=== PATIENT | female | born 1950 | race Caucasian/White ===

== ENCOUNTER 2019-03-30 11:38 | Inpatient (IN) | payer MEDICARE, OTHER, SELFPAY ==
[2019-03-30] VITALS (7 sets, daily range): BP systolic 116–166; BP diastolic 57–101; PULSE 60–80; RESP 18–20; TEMP 36.2–36.6; O2SAT 94–98; BMI 33.7
--- NOTE | ~2019-03-30 | XR_ITS ---
EXAMINATION: XR chest 2V DATE: 03/30/2019 13:02 INDICATION: Dizziness. TECHNIQUE: Frontal and lateral views of the chest were obtained. COMPARISON: Chest 2 views 10/16/2018 FINDINGS: There is mild atelectasis in left lower lung zone. Calcified right lung nodules and calcifi ed mediastinal lymph nodes are consistent with old granulomatous disease. No pleural effusion or pneu mothorax. The heart size is normal. IMPRESSION: 1. Mild atelectasis in left lower lung zone. Reviewed, dictated and finalized at location A. TING MACHINE MECHANIC
--- NOTE | ~2019-03-30 | CT_ITS ---
EXAMINATION: CT brain wo con DATE: 03/30/2019 13:03 INDICATION: Dizziness. TECHNIQUE: Computed tomography (CT) of the head was performed without intravenous contrast. The mA wa s adjusted according to patient size. Iterative reconstruction technique was employed. The dose-lengt h product was 605.33 mGy-cm. COMPARISON: Head CT 07/17/2016 FINDINGS: There is no intracranial hemorrhage, acute infarction, or abnormal intracranial mass lesion . The ventricles are normal in size. The orbits are normal. The paranasal sinuses are clear. The mast oid air cells are normal. IMPRESSION: 1. Normal brain. Reviewed, dictated and finalized at location A. ENT MANAGER IMPRESSION: 1. Normal brain.
--- NOTE | 2019-03-30 12:05 | ECG_ITS ---
Measurements Intervals [place] Rate: 72 P: 30 VA: 166 QRS: 2 QRSD: 111 T: -5 QT: 360 QTc: 394 Interpretive Statements SINUS RHYTHM ATRIAL AND VENTRICULAR PREMATURE COMPLEXES INTRAVENTRICULAR CONDUCTION DELAY DELAYED PRECORDIAL R/S TRANSITION VOLTAGE CRITERIA FOR LVH NONSPECIFIC ST & T-WAVE ABNORMALITY- DIFFUSE LEADS ABNORMAL ECG Electronically Signed On 03-30-2019 14:21:20 [employer] by Unruly Panchal D.O.
[2019-03-30 12:09] LABS: Glucose Point of Care 366 (65-105)
--- NOTE | 2019-03-30 12:29 | ED.DIZZY ---
HPI - Dizziness General Chief Complaint: Dizziness Stated Complaint: dizzy,dry mouth,numbness in left hand Time Seen by Provider: 03/30/19 12:05 Source: patient Mode of arrival: ambulatory Limitations: no limitations History of Present Illness HPI Narrative: Karly is a 68-year-old female patient. She presents ambulatory to the emergency room. She states that she has been sick for 1 month or more. Her main complaint at this time is dizziness . This has been going on for about 5 weeks. She recently went to the emergency room in [place]. Before this she had seen Dr. Mills in [place]. However she decided she will go to the emergency room in [place] as [place] was too far . She also has some blurred vision. no double vision. No headache. No abdominal pain. No nausea or vomiting. No diarrhea. No urinary complaints at this time. Karly also states that she has history of hypothyroidism and hypertension. She has been on medication for this. However she quit taking the thyroid medication as well as the blood pressure medications which are losartan and metoprolol. She says that she quit taking these medicines on her own without consulting her doctor. She states that she did not feel good when taking these medications. There is no history of fall. No chest pain. No fever or cough. Nothing makes her symptoms better or worse. MD elicited complaint: dizziness and lightheadedness Pertinent past history: other ( hypertension. Hypothyroidism. Depression. RLS.) Onset (ago): week(s) ( Five weeks) Timing: gradual onset and intermittent Severity: moderate Description: lightheadedness and other ( see HPI narrative) Context: other ( see HPI narrative) History of similar symptoms: No Exacerbating factors: nothing Relieving factors: nothing Associated symptoms: other ( See HPI narrative) Associated neuro symptoms: other ( says she has blurred vision but no diplopia.) Related Data Home Medications Medication Instructions Recorded Confirmed pramipexole 3 mg PO DAILY 03/30/19 03/30/19 Allergies Allergy/AdvReac Type Severity Reaction Status Date / Time banana Allergy Severe SEVERE Verified 03/30/19 13:32 HIVES aspirin AdvReac Intermediate NAUSEA/VOMI Verified 08/14/14 09:08 TING Review of Systems Review of Systems: All systems reviewed & are unremarkable except as noted in HPI and below Constitutional: Constitutional: Reports as per HPI, Denies chills and Denies fever(s) Eyes: Eyes: Reports change in vision ( Blurred vision, no diplopia.) ENT: Reports system reviewed and no additional complaints, except as documented, Denies dysphagia, Denies vertigo, Reports dizziness, Denies epistaxis, Denies nasal congestion and Denies sore throat Cardiovascular: Cardiovascular: Reports as per HPI, Denies chest pain and Denies radiating jaw, neck or arm pain Respiratory: Respiratory: Reports as per HPI, Denies chest congestion, Denies cough, Denies dyspnea and Denies wheezing Gastrointestinal: Gastrointestinal: Reports as per HPI, Denies abdominal pain, Denies diarrhea, Denies nausea and Denies vomiting Genitourinary: Genitourinary: Reports no additional female genitourinary complaints, Denies hematuria and Denies dysuria Musculoskeletal: Musculoskeletal: Denies back pain and Denies muscle cramps Integumentary/Breasts: Skin/Breast: Reports system reviewed and no additional complaints, except as docu, Denies erythema and Denies rash Neurologic: Reports system reviewed and no additional complaints, except as documented, Denies vertigo, Reports dizziness, Denies syncope, Denies headache(s), Denies focal weakness, Denies numbness and Denies weakness Psychiatric: Psychiatric: Reports no additional psychiatric complaints and Reports anxiety Endocrine: Endocrine: Reports no additional endocrine complaints Comments: Has history of hypothyroidism. She quit taking levothyroxine on her own. Hematologic/Lymphatic: Hematologic/Lymphatic:
[2019-03-30 12:46] LABS: Basophils Absolute Auto 0.01 K/mm3 (0.00-0.10); Basophils Percent Auto 0.2 % (0.0-1.0); Eosinophils Absolute Auto 0.06 K/mm3 (0.02-0.50); Hematocrit 42.5 % (35.0-42.0); Immature Granulocyte Absolute 0.02 K/mm3 (0.00-0.00); Immature Granulocyte Percent A 0.3 % (0.0-0.0); Lymphocytes Percent Auto 16.1 % (18.0-42.0); Mean Corpuscular HGB Conc 32.9 g/dL (32.0-36.0); Mean Corpuscular Hemoglobin 30.4 pg (27.0-31.0); Mean Corpuscular Volume 92.4 fL (78.0-102.0); Mean Platelet Volume 11.1 fl (9.2-11.8); Monocytes Absolute Auto 0.49 K/mm3 (0.10-0.90); Monocytes Percent Auto 7.9 % (2.0-11.0); Neutrophils Absolute Auto 4.6 K/mm3 (1.7-7.2); Neutrophils Percent Auto 74.5 % (50.0-70.0); Platelet Count Result 240 K/mm3 (150-420); Red Cell Distribution Width 13.9 % (11.6-14.4); White Blood Count 6.2 K/mm3 (4.8-10.8)
[2019-03-30 12:54] LABS: Appearance Urine Clear (Clear); Bilirubin Urine Negative (Negative); Color Urine Straw (Yellow); Glucose Urine UA 3+ (Negative); Ketones Urine 3+ (Negative); Leukocyte Esterase Ur Negative LEU/UL (Negative); Nitrate Urine Negative (Negative); Protein Urine Negative (Negative); Urobilinogen Urine 0.2 mg/dL (0.2-1.0); pH Urine 5.5 (5.0-8.0)
[2019-03-30 12:57] LABS: Add Urine Microscopic? YES; Bacteria Urine Trace /hpf; Blood Urine Trace-Intact (Negative); RBC Urine None seen /hpf (0-2); Squamous Epithelial Cell Urine Few /hpf (Few); WBC Urine None seen /hpf (0-3)
[2019-03-30 13:00] LABS: Hemoglobin A1C 11.2 % (<5.7)
[2019-03-30 13:01] LABS: INR 0.9; Partial Thromboplastin Time 33.4 SEC (22.3-31.6); Prothrombin Time 9.8 Seconds (9.64-11.0)
[2019-03-30 13:12] LABS: Alanine Aminotransferase 21 U/L (14-59); Albumin Level 4.1 g/dL (3.4-5.0); Alkaline Phosphatase 97 U/L (46-116); Anion Gap 25.2 mmol/L (7-16); Aspartate Amino Transferase 14 U/L (15-37); Bilirubin,Total 0.4 mg/dL (0.00-1.00); Blood Urea Nitrogen 25 mg/dL (7-18); Calcium 10.5 mg/dL (8.5-10.1); Carbon Dioxide 15 mmol/L (21-32); Chloride 100 mmol/L (98-108); Creatine Kinase 116 U/L (26-192); Estimated CRCL calculation 48 ml/min; Estimated Glomerular Filt Rate > 60; Magnesium 2.2 mg/dL (1.8-2.4); Osmolality Calculated 308 mOsm/kg (285-295); Potassium 4.2 mmol/L (3.5-5.1); Sodium 136 mmol/L (136-145); Total Protein 8.1 g/dL (6.4-8.2)
[2019-03-30 13:14] LABS: Glucose 488 mg/dL (70-99); Thyroid Stimulating Hormone 0.86 uIU/mL (0.36-3.74); Troponin I < 0.02 ng/mL (0.00-0.056)
--- NOTE | 2019-03-30 13:23 | PC.NURSE ---
Dr. Ayala in speaking with pt.
[2019-03-30] MEDS: SODIUM CHLORIDE 0.9% IV 1,000 ML 999 ML IV CONT (13:40)
[2019-03-30] MEDS: INSULIN HUMAN REGULAR (*BKC) 100 UNITS/ML 10 UNITS IV PUSH (13:45)
[2019-03-30 13:49] LABS: Erythrocyte Sedimentation Rate 17 mm/hr (0-20)
[2019-03-30 13:49] LABS: Base Excess ABG -11.5 mmol/L (0-2); HCO3 ABG 13.3 mmol/L (23-29); Oxygen Content ABG 18.7 %vol (16.0-22.0); Oxygen Saturation ABG 97.5 % (95-97); Oxyhemoglobin 96.7 % (94-100); PCO2 ABG 27.8 mmHg (35-45); PO2 ABG 99.7 mmHg (75-85); Total Hemoglobin 13.7 g/dL
[2019-03-30 13:50] LABS: Device ROOM AIR; Modified Allen's Test Pass; Site Drawn RIGHT BRACHIAL
[2019-03-30 14:12] LABS: Glucose Point of Care 326 (65-105)
--- NOTE | 2019-03-30 15:02 | PC.NURSE ---
ADmitted for new onset diabetes, here for increase thrist weight loss and blurred vision, oriented to room and hospital process
--- NOTE | 2019-03-30 15:33 | PM.IMHP ---
H&P: HPI History of Present Illness Chief complaint: dizzy,dry mouth,numbness in left hand Narrative: Karly Simms is a 68 year old female That presented to the ED today complaining of dizziness and blurred vision. Patient has a pertinent medical history of hypertension, hypothyroidism. She is being admitted for newly diagnosed diabetes mellitus. Her hemoglobin A1c was 11.2 in her blood sugar was 488. She was given 10 units of insulin in the ED. According to patient she has been filling ill for the last month. She did recently go to her primary care physician complaining of edema to the bilateral eyes and was diagnosed with sinusitis. She was given antibiotics and eyedrops. Patient noted that she became extremely nauseated due to the antibiotics , she believes that the antibiotics were amoxicillin,and called her primary care physician and told him she would not be taking it any longer. She then developed a yeast infection that was treated. She did note that she stopped taking her all her home medication because she felt as if it was making her ill. She decided to come to the ED because her vision worsened and she became more dizzy. She was dizzy to the point where she felt like she was going to fall. She also developed numbness in her left hand that radiated to her fingers. She says she put lidocaine cream on the left hand to relieve the numbness. She also noted that her left hand felt heavy. the hand numbness started 1 week ago. current vital signs are 36.1, 57, 18, 95% on room air, 133/62. patient will be admitted for diabetes mellitus, and metabolic acidosis. Patient denies SOB, CP, palpitation, lightheadness, constipation, diarrhea, or chills or fever. I will restart patient's home medications. Review of Systems Constitutional: Constitutional: Denies chills, Reports fatigue, Denies headache(s), Reports lethargy and Reports weakness Eyes: Eyes: Reports blurry vision, Reports change in vision, Denies diplopia and Denies loss of vision ENT: Denies dysphagia, Denies vertigo and Reports dizziness Cardiovascular: Cardiovascular: Denies chest pain, Denies irregular heart rhythm, Denies lightheadedness, Denies palpitations and Denies dyspnea Respiratory: Respiratory: Reports no additional respiratory complaints, Denies cough and Denies dyspnea PMFSH Past Medical History Medical History (Updated 03/31/19 @ 09:17 by DILIP Mtz) Hypertension Hypothyroid Surgical History Surgical History (Updated 03/30/19 @ 12:41 by Rickey Ayala MD) H/O: hysterectomy Hx of tonsillectomy Family History Family History Grandparent Family history of premature coronary heart disease, Onset Age: 64 Father Family history of respiratory disorder, Onset Age: 87 Cerebrovascular accident Family history of Alzheimer's disease Patient's father is Family history of cardiovascular disease Mother Family history of primary malignant neoplasm of liver, Onset Age: 64 Family history of malignant neoplasm of breast in first degree relative Patient's mother is , Onset Age: 64 Family history of malignant neoplasm Social History Social History Smoking status: Never smoker Alcohol intake: current Drinks per week: 1 Substance use: never Gender identity (if verbalized by the patient): Female Spiritual care concerns: No Agree to blood products: Yes Meds Home Medications and Allergies Home Medications Medication Instructions Recorded Confirmed Type zolpidem 10 mg tablet 10 mg PO .QHS PRN #30 tablet 03/07/19 03/30/19 Rx pramipexole 3 mg PO DAILY 03/30/19 03/30/19 History Allergies Allergy/AdvReac Type Severity Reaction Status Date / Time banana Allergy Severe SEVERE Verified 03/30/19 13:32 HIVES acetaminophen [From Tylenol] AdvReac Intermediate n/v Verified 03/30/19 15:49 aspirin AdvReac Intermediate N
[2019-03-30] MEDS: SODIUM CHLORIDE 0.9% IV 1,000 ML 125 ML IV CONT ×2 (15:48→23:15)
[2019-03-30 16:51] LABS: Glucose Point of Care 271 (65-105)
--- NOTE | 2019-03-30 17:00 | PC.NURSE ---
Sitting up at the bedside, supper tray to patient
--- NOTE | 2019-03-30 18:02 | PC.NURSE ---
fluids infusing, telemetry SR, occassional PVC noted, denies chest pain no sob, states thirst seems to be less at this time
[2019-03-30] MEDS: NAPROXEN 250 MG TABLET 500 MG PO (19:07)
[2019-03-30] MEDS: PRAMIPEXOLE 0.5 MG TABLET PO (20:09)
--- NOTE | 2019-03-30 20:22 | PC.NURSE ---
notified that patient's blood sugar was 328 @ HS. stated to monitor her.
[2019-03-30 20:25] LABS: Glucose Point of Care 328 (65-105)
[2019-03-31] VITALS (8 sets, daily range): BP systolic 114–140; BP diastolic 62–70; PULSE 57–84; RESP 18; TEMP 36.1–36.5; O2SAT 95–98
--- NOTE | 2019-03-31 03:05 | PC.NURSE ---
pt laying in bed playing on tablet, denies any pain or needs at this time, no evidence of distress noted, call light and belongings within reach.
[2019-03-31 05:40] LABS: Basophils Absolute Auto 0.02 K/mm3 (0.00-0.10); Basophils Percent Auto 0.4 % (0.0-1.0); Eosinophils Absolute Auto 0.14 K/mm3 (0.02-0.50); Eosinophils Percent Auto 2.8 % (1.0-6.0); Hematocrit 38.8 % (35.0-42.0); Immature Granulocyte Absolute 0.01 K/mm3 (0.00-0.00); Immature Granulocyte Percent A 0.2 % (0.0-0.0); Lymphocytes Absolute Auto 1.75 K/mm3 (1.10-4.50); Lymphocytes Percent Auto 35.3 % (18.0-42.0); Mean Corpuscular HGB Conc 33.5 g/dL (32.0-36.0); Mean Corpuscular Hemoglobin 30.8 pg (27.0-31.0); Mean Corpuscular Volume 91.9 fL (78.0-102.0); Mean Platelet Volume 11.3 fl (9.2-11.8); Monocytes Percent Auto 10.1 % (2.0-11.0); Neutrophils Absolute Auto 2.5 K/mm3 (1.7-7.2); Neutrophils Percent Auto 51.2 % (50.0-70.0); Platelet Count Result 210 K/mm3 (150-420); Red Blood Count 4.22 M/mm3 (4.20-5.40)
[2019-03-31 05:48] LABS: Alanine Aminotransferase 18 U/L (14-59); Albumin Level 3.5 g/dL (3.4-5.0); Alkaline Phosphatase 78 U/L (46-116); Anion Gap 21.9 mmol/L (7-16); Aspartate Amino Transferase 15 U/L (15-37); Bilirubin,Total 0.5 mg/dL (0.00-1.00); Blood Urea Nitrogen 14 mg/dL (7-18); Calcium 9.3 mg/dL (8.5-10.1); Carbon Dioxide 13 mmol/L (21-32); Chloride 104 mmol/L (98-108); Estimated CRCL calculation 61 ml/min; Estimated Glomerular Filt Rate > 60; Glucose 320 mg/dL (70-99); Osmolality Calculated 292 mOsm/kg (285-295); Potassium 3.9 mmol/L (3.5-5.1); Sodium 135 mmol/L (136-145); Total Protein 6.6 g/dL (6.4-8.2)
[2019-03-31 06:18] LABS: Thyroid Stimulating Hormone Reflex 6.56 u/IU/mL (0.36-3.74)
[2019-03-31 06:40] LABS: Free T4 Free Thyroxine Reflex 0.81 ng/dL (0.76-1.46)
[2019-03-31] MEDS: glipiZIDE XL 2.5 MG TAB.ER.24 PO (07:51)
[2019-03-31] MEDS: hydroCHLOROthiazide 12.5 MG CAPSULE PO (09:18)
[2019-03-31] MEDS: LOSARTAN POTASSIUM 50 MG TABLET 100 MG PO (09:18)
[2019-03-31] MEDS: LEVOTHYROXINE SODIUM 100 MCG TABLET PO (09:18)
[2019-03-31 09:20] LABS: CRP 0.6 mg/dL (0.0-0.9); HDL Direct 43 mg/dL (40-60)
--- NOTE | 2019-03-31 09:35 | PM.IMPN ---
Progress Note: A&P Assessment and Plan (1) Type 2 diabetes mellitus: Qualifiers: Diabetes mellitus complication status: without complication Diabetes mellitus detention insulin use: without terminologist use Qualified Code(s): E11.9 - Type 2 diabetes mellitus without complications Code(s): E11.9 - Type 2 diabetes mellitus without complications Status: Acute Assessment and Plan: blood sugar remained in the 300s - continue glipizide 2.5 extended release for now - patient hesitant about using insulin - change sliding scale to moderate with Accu-Cheks - patient will be educated on the proper use of Accu-Cheks - continue diabetic diet (2) Hypertension: Code(s): I10 - Essential (primary) hypertension Status: Acute Assessment and Plan: vital signs stable - blood pressure elevated in ED - continue losartan 100 mg daily and HCTZ 12. - monitor vital signs as ordered - will adjust medication as needed (3) Hypothyroid: Code(s): E03.9 - Hypothyroidism, unspecified Status: Acute Assessment and Plan: - TSH elevated - restart home dose of levothyroxine. - informed patient that she would have to get a repeat TSH in 6 weeks by her PCP (4) Metabolic acidosis: Code(s): E87.2 - Acidosis Status: Acute Assessment and Plan: -Possibly secondary to insulin resistant diabetes - metabolic acidosis as evidence by pH at 7.30 bicarb is 13.3 anion gap at 25.2 BUN slightly elevated. -urine with ketones - no obvious cardiac abnormalities - C-peptide pending -crp pending (5) DVT prophylaxis: Code(s): Z29.9 - Encounter for prophylactic measures, unspecified Status: Acute Assessment and Plan: continue Lovenox Subjective Date/time seen: 03/31/19 09:35 patient notes that she feels much better today , she noted that she feels like her old self again. She did have a restless night due to the environment. Has not experienced any numbness in the left hand. Patient able to tolerate all meals , and ambulate at baseline. Patient denies SOB, CP, palpitation, extremity numbness, lightheadness, dizziness, constipation, diarrhea, or chills or fever. Review of Systems Constitutional: Constitutional: Denies chills, Reports fatigue, Denies headache(s), Reports lethargy and Reports weakness Eyes: Eyes: Reports blurry vision, Reports change in vision, Denies diplopia and Denies loss of vision ENT: Denies dysphagia, Denies vertigo, Reports dizziness and Denies headache(s) Cardiovascular: Cardiovascular: Denies chest pain, Denies irregular heart rhythm, Denies lightheadedness, Denies palpitations and Denies dyspnea Respiratory: Respiratory: Reports no additional respiratory complaints, Denies cough and Denies dyspnea Gastrointestinal: Gastrointestinal: Denies dysphagia Neurologic: Denies vertigo, Reports dizziness, Denies headache(s), Denies loss of vision and Reports weakness Endocrine: Endocrine: Denies palpitations Exam Const: General: cooperative and tired appearing Orientation/consciousness: patient oriented x3 Eyes: General: appearance normal, both eyes and all related structures Cardio: Jugular venous distension: no JVD Rate: regular rate Neuro: General: patient oriented x3 Cognition (Neuro): normal cognition Speech: normal speech Gait exam (Neuro): Normal gait present Extrem: General: normal to inspection, full ROM, capillary refill normal and no pedal edema Right upper extremity: full ROM Left upper extremity: full ROM Right lower extremity: normal to inspection and full ROM Objective Data Vital Signs Vital Signs: Vital Signs - 24 hr 03/30/19 11:45 03/30/19 13:24 03/30/19 14:43 Temperature 36.6 C Pulse Rate 72 80 62 Respiratory Rate 20 18 20 Blood Pressure 166/101 H 120/57 L 116/67 Pulse Oximetry 97 97 97 03/30/19 14:55 03/30/19 19:05 03/30/19 20:10 Temperature 36.2 C L 36.3 C L Pulse Rate 60 75 61 Respira
--- NOTE | 2019-03-31 11:36 | PC.NURSE ---
up independent in room, denies needs, states feeling better today
--- NOTE | 2019-03-31 11:48 | PC.NURSE ---
Tearful, advised that we are working on getting the right dose and right medication for her, we will try to make sure that she will not have to take insulin and we just have to keep trying the medication and adjust as her body responds to it
[2019-03-31] MEDS: glipiZIDE 2.5 MG TABLET PO (13:09)
[2019-03-31] MEDS: NAPROXEN 250 MG TABLET 500 MG PO (13:15)
--- NOTE | 2019-03-31 13:17 | PC.NURSE ---
naproxyn given for pain and restless leg, telemetry SR 70's, repeat glipizide given and additional metformin given as directed, next POC glucose 1630
--- NOTE | 2019-03-31 13:50 | PC.NURSE ---
Resting in bed, telemetry SR, resting quietly in bed
--- NOTE | 2019-03-31 14:05 | PC.NURSE ---
Up in [place] walking, gait steady, telemertry SR 70's
[2019-03-31] MEDS: LORAZEPAM 0.5 MG TABLET PO (16:55)
--- NOTE | 2019-03-31 18:15 | PC.NURSE ---
states having trouble with restless legs, med for this is scheduled at bedtime, advised if felt she needed the med early to let us know, ativan was given with not much relief, able to ambulate in room, telemetry SR, ate well, advised next finger stick would be at bedtime
[2019-03-31] MEDS: PRAMIPEXOLE 0.25 MG TABLET 0.5 MG PO (20:01)
--- NOTE | 2019-03-31 20:29 | PM.EVENT ---
Event Note Event Note Event Note: Patient states she feels much better today. Blood sugars showing modest response to hypoglycemics and insulin. Mucous membranes moist, regular rate rhythm without murmur, lungs clear to auscultation abdomen soft. No edema. Extremities are warm dry and pink. Metabolic acidosis persists as does the anion gap. Will continue to push hydration and try to assess pancreatic function. I have examined the patient reviewed the chart. I discussed the patient's care with Rad Frances APN and agree with her assessment and plan.
[2019-03-31 20:34] LABS: Glucose Point of Care > 450 (65-105)
[2019-03-31 20:34] LABS: Glucose Point of Care > 450 (65-105)
--- NOTE | 2019-03-31 20:41 | PC.NURSE ---
notified of patient's blood sugar result 479 and 457 when repeated. New orders received.
[2019-03-31] MEDS: SODIUM CHLORIDE 0.9% IV 500 ML IV CONT (20:56)
[2019-03-31] MEDS: SODIUM CHLORIDE 0.9% IV 1,000 ML 100 ML IV CONT (21:34)
--- NOTE | 2019-03-31 23:02 | PC.NURSE ---
Call placed to Dr Mcmahan regarding pt's blood glucose reading, orders given to repeat in 2 hours and call with results.
[2019-03-31 23:11] LABS: Glucose Point of Care 356 (65-105)
[2019-04-01 01:05] LABS: Glucose Point of Care 427 (65-105)
--- NOTE | 2019-04-01 01:17 | PC.NURSE ---
Dr Mcmahan notified of patient's blood glucose level, orders given to give 6 units insulin now and recheck blood sugar in 2 hours, call him with results.
--- NOTE | 2019-04-01 01:30 | PC.NURSE ---
Call placed to Dr Mcmahan regarding pt request for more medication for her restless legs, stated he will put in an order.
--- NOTE | 2019-04-01 01:35 | PC.NURSE ---
Dr Mcmahan at bedside speaking to patient regarding medication for restless leg, he will put in additional medication order.
[2019-04-01] MEDS: PRAMIPEXOLE 0.5 MG TABLET PO (02:07)
--- NOTE | 2019-04-01 03:12 | PC.NURSE ---
Dr Mcmahan notified of pt's blood glucose level, no new orders at this time.
[2019-04-01 03:13] LABS: Glucose Point of Care 303 (65-105)
[2019-04-01 03:14] VITALS: BP 147/83; PULSE 71; RESP 18; TEMP 36.2; O2SAT 98
[2019-04-01] MEDS: LEVOTHYROXINE SODIUM 112 MCG TABLET PO (05:32)
[2019-04-01 06:07] LABS: Hematocrit 32.6 % (35.0-42.0); Mean Corpuscular HGB Conc 33.7 g/dL (32.0-36.0); Mean Corpuscular Hemoglobin 30.4 pg (27.0-31.0); Mean Corpuscular Volume 90.1 fL (78.0-102.0); Mean Platelet Volume 10.8 fl (9.2-11.8); Platelet Count Result 168 K/mm3 (150-420); Red Blood Count 3.62 M/mm3 (4.20-5.40); Red Cell Distribution Width 13.8 % (11.6-14.4); White Blood Count 4.3 K/mm3 (4.8-10.8)
[2019-04-01 06:39] LABS: Anion Gap 14.2 mmol/L (7-16); Blood Urea Nitrogen 14 mg/dL (7-18); Calcium 9.1 mg/dL (8.5-10.1); Carbon Dioxide 20 mmol/L (21-32); Chloride 108 mmol/L (98-108); Estimated CRCL calculation 74 ml/min; Estimated Glomerular Filt Rate > 60; Glucose 277 mg/dL (70-99); Osmolality Calculated 298 mOsm/kg (285-295); Potassium 3.2 mmol/L (3.5-5.1); Sodium 139 mmol/L (136-145)
[2019-04-01 06:41] LABS: Ethanol < 3 mg/dL (0-6)
[2019-04-01 06:45] LABS: Lactic Acid Reflex 0.8 mmol/L (0.4-2.0)
[2019-04-01 06:48] LABS: Salicylate 1.2 mg/dL (2.8-20.0)
[2019-04-01] MEDS: SODIUM CHLORIDE 0.9% IV 1,000 ML 100 ML IV CONT ×2 (07:53→18:12)
[2019-04-01 08:00] VITALS: BP 110/63; PULSE 76; RESP 20; TEMP 36.3; O2SAT 97
[2019-04-01 08:02] LABS: Glucose Point of Care 289 (65-105)
[2019-04-01] MEDS: glipiZIDE XL 5 MG TABCR PO ×2 (08:15→09:15)
[2019-04-01] MEDS: metFORMIN HCL XR 500 MG TAB.SR.24H PO ×2 (08:16→17:02)
[2019-04-01] MEDS: ENOXAPARIN 40 MG/0.4 ML SYRINGE SUB-Q (09:15)
[2019-04-01] MEDS: POTASSIUM CHLORIDE 20 MEQ PACKET (FOR LIQUID) 40 MEQ PO (09:15)
[2019-04-01] MEDS: LOSARTAN POTASSIUM 50 MG TABLET 100 MG PO (09:49)
--- NOTE | 2019-04-01 10:52 | PM.IMPN ---
Progress Note: A&P Assessment and Plan (1) Type 2 diabetes mellitus: Qualifiers: Diabetes mellitus complication status: without complication Diabetes mellitus fci insulin use: without adjunct faculty for medical terminology use Qualified Code(s): E11.9 - Type 2 diabetes mellitus without complications Code(s): E11.9 - Type 2 diabetes mellitus without complications Status: Acute Assessment and Plan: blood sugar >400 last night 10 units given and fluid to inthe 200's - increase glipizide to 10, and ended his metformin 100 mg daily - patient hesitant about using insulin - change sliding scale to moderate with Accu-Cheks - patient will be educated on the proper use of Accu-Cheks - continue diabetic diet - patient educated on diabetic diet (2) Hypertension: Code(s): I10 - Essential (primary) hypertension Status: Acute Assessment and Plan: vital signs stable - patient home medication updated, the medication changed losartan 50 mg daily metoprolol. - monitor vital signs as ordered - will adjust medication as needed (3) Hypothyroid: Code(s): E03.9 - Hypothyroidism, unspecified Status: Acute Assessment and Plan: - TSH elevated - restart home dose of levothyroxine. - informed patient that she would have to get a repeat TSH in 6 weeks by her PCP (4) Metabolic acidosis: Code(s): E87.2 - Acidosis Status: Acute Assessment and Plan: -Possibly secondary to insulin resistant diabetes - metabolic acidosis as evidence by pH at 7.30 bicarb is 13.3 anion gap at 25.2 BUN slightly elevated on admission -urine with ketones - no obvious cardiac abnormalities - C-peptide pending -crp within normal limits -Salicylates and etoh wnl and within normal limits today, bicarbonate 20 - chest x-ray and head CT negative (5) DVT prophylaxis: Code(s): Z29.9 - Encounter for prophylactic measures, unspecified Status: Acute Assessment and Plan: continue Lovenox Subjective Date/time seen: 04/01/19 10:52Patient's blood sugar did increase yesterday greater than 400. Dr. Mcmahan ordered 10 units insulin And IV fluids, blood sugar is currently 277. Patient's glipizide increased to 10 mg and metformin increased to 1000 mg daily to better control her diabetes. Patient admits that she feels a lot better today but remains anxious and teary eye due to her newly diagnosed diabetes. she also informed me that her medication for her restless leg syndrome was incorrect. She noted that she gets 3 tablets per day I informed her that we would need to know the mg. At that time patient pulled out medication list from her purse. her home medication is now updated. Review of Systems Constitutional: Constitutional: Denies chills, Denies headache(s), Reports lethargy and Reports weakness Eyes: Eyes: Reports blurry vision, Reports change in vision, Denies diplopia and Denies loss of vision ENT: Denies dysphagia, Denies vertigo, Reports dizziness and Denies headache(s) Cardiovascular: Cardiovascular: Denies chest pain, Denies irregular heart rhythm, Denies lightheadedness, Denies palpitations and Denies dyspnea Respiratory: Respiratory: Reports no additional respiratory complaints, Denies cough and Denies dyspnea Gastrointestinal: Gastrointestinal: Denies dysphagia Neurologic: Denies vertigo, Reports dizziness, Denies headache(s), Denies loss of vision and Reports weakness Endocrine: Endocrine: Denies palpitations Exam Const: General: cooperative and tired appearing Orientation/consciousness: patient oriented x3 Eyes: General: appearance normal, both eyes and all related structures Cardio: Jugular venous distension: no JVD Rate: regular rate Neuro: General: patient oriented x3 Cognition (Neuro): normal cognition Speech: normal speech Gait exam (Neuro): Normal gait present Extrem: General: normal to inspection, full ROM, capillary refill normal and no peda
--- NOTE | 2019-04-01 11:03 | PM.IMPN ---
Progress Note: A&P Assessment and Plan (1) Type 2 diabetes mellitus: Qualifiers: Diabetes mellitus complication status: without complication Diabetes mellitus fpc insulin use: without director long term care use Qualified Code(s): E11.9 - Type 2 diabetes mellitus without complications Code(s): E11.9 - Type 2 diabetes mellitus without complications Status: Acute Assessment and Plan: blood sugar >400 last night 10 units given and fluid to inthe 200's - increase glipizide to 20, metformin 1000 daily - patient hesitant about using insulin - change sliding scale to moderate with Accu-Cheks - patient will be educated on the proper use of Accu-Cheks - continue diabetic diet - patient educated on diabetic diet (2) Hypertension: Code(s): I10 - Essential (primary) hypertension Status: Acute Assessment and Plan: vital signs stable - patient home medication updated, the medication changed losartan 50 mg daily metoprolol. - monitor vital signs as ordered - will adjust medication as needed (3) Hypothyroid: Code(s): E03.9 - Hypothyroidism, unspecified Status: Acute Assessment and Plan: - TSH elevated - restart home dose of levothyroxine. - informed patient that she would have to get a repeat TSH in 6 weeks by her PCP (4) Metabolic acidosis: Code(s): E87.2 - Acidosis Status: Acute Assessment and Plan: -Possibly secondary to insulin resistant diabetes - metabolic acidosis as evidence by pH at 7.30 bicarb is 13.3 anion gap at 25.2 BUN slightly elevated on admission -urine with ketones - no obvious cardiac abnormalities - C-peptide pending -crp within normal limits -Salicylates and etoh wnl and within normal limits today, bicarbonate 20 - chest x-ray and head CT negative (5) DVT prophylaxis: Code(s): Z29.9 - Encounter for prophylactic measures, unspecified Status: Acute Assessment and Plan: continue Lovenox Subjective Date/time seen: 04/01/19 11:03Patient's blood sugar remained to be in the 300s today .will adjust medication as needed refer to plan. Patient remains emotional due to diagnosed diabetes mellitus. She had no problems overnight. Patient able to tolerate all meals , slept well and ambulate at baseline. Patient denies SOB, CP, palpitation, extremity numbness, lightheadness, dizziness, constipation, diarrhea, or chills or fever. Patient agree that they are ready for discharge and discharge plan. Will attempt to control blood sugars better. Review of Systems Constitutional: Constitutional: Denies chills, Denies headache(s), Reports lethargy and Reports weakness Eyes: Eyes: Reports blurry vision, Reports change in vision, Denies diplopia and Denies loss of vision ENT: Denies dysphagia, Denies vertigo, Reports dizziness and Denies headache(s) Cardiovascular: Cardiovascular: Denies chest pain, Denies irregular heart rhythm, Denies lightheadedness, Denies palpitations and Denies dyspnea Respiratory: Respiratory: Reports no additional respiratory complaints, Denies cough and Denies dyspnea Gastrointestinal: Gastrointestinal: Denies dysphagia Neurologic: Denies vertigo, Reports dizziness, Denies headache(s), Denies loss of vision and Reports weakness Endocrine: Endocrine: Denies palpitations Exam Const: General: cooperative and tired appearing Orientation/consciousness: patient oriented x3 Eyes: General: appearance normal, both eyes and all related structures Cardio: Jugular venous distension: no JVD Rate: regular rate Neuro: General: patient oriented x3 Cognition (Neuro): normal cognition Speech: normal speech Gait exam (Neuro): Normal gait present Extrem: General: normal to inspection, full ROM, capillary refill normal and no pedal edema Right upper extremity: full ROM Left upper extremity: full ROM Right lower extremity: normal to inspection and full ROM Objective Data Vital Signs Vital Sign
[2019-04-01 12:00] VITALS: BP 103/47; PULSE 70; PULSE 80; RESP 20; TEMP 36.7; O2SAT 97
[2019-04-01 12:00] LABS: Glucose Point of Care 383 (65-105)
[2019-04-01 16:00] VITALS: BP 147/65; PULSE 70; PULSE 74; RESP 20; TEMP 36.7; O2SAT 95
[2019-04-01 16:57] LABS: Glucose Point of Care 379 (65-105)
[2019-04-01 20:00] VITALS: BP 118/73; PULSE 80; PULSE 84; RESP 18; TEMP 36.4; O2SAT 99
[2019-04-01 20:50] LABS: Glucose Point of Care 338 (65-105)
[2019-04-01] MEDS: PRAMIPEXOLE 0.25 MG TABLET 0.75 MG PO (21:15)
[2019-04-02] VITALS: BP 126/70; PULSE 84; RESP 18; TEMP 36; O2SAT 98
[2019-04-02 04:00] VITALS: BP 154/79; PULSE 68; RESP 18; TEMP 36.4; O2SAT 98
[2019-04-02] MEDS: SODIUM CHLORIDE 0.9% IV 1,000 ML 100 ML IV CONT (04:15)
[2019-04-02 05:32] LABS: Hematocrit 33.7 % (35.0-42.0); Hemoglobin 11.1 g/dL (11.7-13.8); Mean Corpuscular HGB Conc 32.9 g/dL (32.0-36.0); Mean Corpuscular Hemoglobin 30.2 pg (27.0-31.0); Mean Corpuscular Volume 91.8 fL (78.0-102.0); Mean Platelet Volume 11.2 fl (9.2-11.8); Platelet Count Result 168 K/mm3 (150-420); Red Blood Count 3.67 M/mm3 (4.20-5.40); Red Cell Distribution Width 14.2 % (11.6-14.4); White Blood Count 4.3 K/mm3 (4.8-10.8)
[2019-04-02 05:44] LABS: Anion Gap 17.7 mmol/L (7-16); Blood Urea Nitrogen 9 mg/dL (7-18); Calcium 9.2 mg/dL (8.5-10.1); Carbon Dioxide 20 mmol/L (21-32); Chloride 107 mmol/L (98-108); Estimated CRCL calculation 76 ml/min; Estimated Glomerular Filt Rate > 60; Glucose 302 mg/dL (70-99); Osmolality Calculated 301 mOsm/kg (285-295); Potassium 3.7 mmol/L (3.5-5.1); Sodium 141 mmol/L (136-145)
[2019-04-02] MEDS: LEVOTHYROXINE SODIUM 25 MCG TABLET PO (05:45)
--- NOTE | 2019-04-02 05:48 | PC.NURSE ---
Patient took AM med without difficulty. No distress noted. Call light in reach.
--- NOTE | 2019-04-02 06:05 | PC.NURSE ---
Patient sitting on side of bed and was very happy when her blood sugar was 302. No distress noted. IV NS infusing without difficulty. Call light in reach.
[2019-04-02 08:00] VITALS: BP 128/72; PULSE 61; RESP 18; TEMP 36.6; O2SAT 96
[2019-04-02] MEDS: metFORMIN HCL XR 500 MG TAB.SR.24H PO (08:56)
[2019-04-02] MEDS: glipiZIDE XL 5 MG TABCR 10 MG PO ×2 (08:56→09:02)
[2019-04-02] MEDS: POTASSIUM CHLORIDE 20 MEQ PACKET (FOR LIQUID) 40 MEQ PO (08:56)
[2019-04-02] MEDS: LOSARTAN POTASSIUM 50 MG TABLET PO (08:56)
[2019-04-02] MEDS: ATORVASTATIN 10 MG TABLET 20 MG PO (08:57)
[2019-04-02 09:01] VITALS: PULSE 61
[2019-04-02] MEDS: METOPROLOL SUCCINATE EXT REL 50 MG TABCR PO (09:01)
--- NOTE | 2019-04-02 11:04 | PC.NURSE ---
Telemetry discontinued
--- NOTE | 2019-04-02 12:47 | PM.DS ---
DS: Diagnosis Admitting Diagnosis Admitting Diagnosis: Type 2 diabetes mellitus without complications Discharge Diagnosis (1) Type 2 diabetes mellitus: Qualifiers: Diabetes mellitus complication status: without complication Diabetes mellitus detention insulin use: without terminal press operator use Qualified Code(s): E11.9 - Type 2 diabetes mellitus without complications Code(s): E11.9 - Type 2 diabetes mellitus without complications Status: Acute Assessment and Plan: - Patient will discharge in follow-up her primary care physician further medication adjustment - increase glipizide to 20, metformin 1000 daily - patient hesitant about using insulin - patient educated on diabetic diet (2) Hypertension: Code(s): I10 - Essential (primary) hypertension Status: Acute Assessment and Plan: vital signs stable continue home medication follow-up with PCP (3) Hypothyroid: Code(s): E03.9 - Hypothyroidism, unspecified Status: Acute Assessment and Plan: - TSH elevated continue home medication - informed patient that she would have to get a repeat TSH in 6 weeks by her PCP (4) Metabolic acidosis: Code(s): E87.2 - Acidosis Status: Acute Assessment and Plan: -Possibly secondary to insulin resistant diabetes - metabolic acidosis as evidence by pH at 7.30 bicarb is 13.3 anion gap at 25.2 BUN slightly elevated on admission -urine with ketones - no obvious cardiac abnormalities - C-peptide pending -crp within normal limits -Salicylates and etoh wnl and within normal limits today, bicarbonate 20 - chest x-ray and head CT negative DS: Summary Hospital Course Hospital Course: refer to H&P: Narrative: Karly Simms is a 68 year old female That presented to the ED today complaining of dizziness and blurred vision. Patient has a pertinent medical history of hypertension, hypothyroidism. She is being admitted for newly diagnosed diabetes mellitus. Her hemoglobin A1c was 11.2 in her blood sugar was 488. She was given 10 units of insulin in the ED. According to patient she has been filling ill for the last month. She did recently go to her primary care physician complaining of edema to the bilateral eyes and was diagnosed with sinusitis. She was given antibiotics and eyedrops. Patient noted that she became extremely nauseated due to the antibiotics , she believes that the antibiotics were amoxicillin,and called her primary care physician and told him she would not be taking it any longer. She then developed a yeast infection that was treated. She did note that she stopped taking her all her home medication because she felt as if it was making her ill. She decided to come to the ED because her vision worsened and she became more dizzy. She was dizzy to the point where she felt like she was going to fall. She also developed numbness in her left hand that radiated to her fingers. She says she put lidocaine cream on the left hand to relieve the numbness. She also noted that her left hand felt heavy. the hand numbness started 1 week ago. current vital signs are 36.1, 57, 18, 95% on room air, 133/62. patient will be admitted for diabetes mellitus, and metabolic acidosis. Patient denies SOB, CP, palpitation, lightheadness, constipation, diarrhea, or chills or fever. I will restart patient's home medications. patient blood sugar are in the 200s and 300s this discharge. She would discharge with a max amount glipizide 20 mg daily and metformin a 1000 mg daily. Appointment with her physician has been Made and she with follow-up with her for medication adjustment. Patient able to tolerate all meals , slept well and ambulate at baseline. Patient denies SOB, CP, palpitation, extremity numbness, lightheadness, dizziness, constipation, diarrhea, or chills or fever. Patient agree that they are ready for discharge and discharge plan. Patient educated on diabetic diet,
--- NOTE | 2019-04-02 13:24 | PC.NURSE ---
Patient dressing for discharge
[2019-04-03 08:51] LABS: Glucose Point of Care 398 (65-105)
[2019-04-03 08:51] LABS: Glucose Point of Care 266 (65-105)
[2019-04-03 08:51] LABS: Glucose Point of Care 390 (65-105)
[2019-04-03 08:52] LABS: Glucose Point of Care 381 (65-105)
[2019-04-03 08:52] LABS: Glucose Point of Care 323 (65-105)
[2019-04-04 05:59] LABS: C-Peptide 0.62 ng/mL (0.80-3.85)
--- NOTE | 2019-04-08 13:38 | PC.NURSE ---
Discharge call back completed by database report writer. Pt states she has no issues and that she saw her PCP today and is reviewing material on diet and how to keep a healthy blood sugar.
== END 2019-04-02 14:01 | disposition home or self-care (01) | DRG 638 ==
LOC: CHSED 11:44 → CHS2ND 14:16
PROVIDERS: Nurse Practitioner; Admitting Provider Surgery; Emergency Provider Surgery; PCP Nurse Practitioner Family; Visit Provider Surgery
DX: E11.9 Type 2 diabetes mellitus without complications (principal); E03.9 Hypothyroidism, unspecified; I10 Essential (primary) hypertension; F32.9 Major depressive disorder, single episode, unspecified; G25.81 Restless legs syndrome; E87.2 Acidosis
CPT/HCPCS: 36415; 36600; 70450; 71046; 80048; 80053; 80307; 81001; 82550; 82553; 82805; 83036; 83605; 83718; 83735; 84439; 84443; 84484; 84681; 85025; 85027; 85610; 85652; 85730; 86140; 87040; 93005; 96361; 96374; 99285; A9270; J1650; J1815; J7030; J7040

== ENCOUNTER 2019-05-05 12:00 | Inpatient (IN) | payer MEDICARE, OTHER, SELFPAY ==
[2019-05-05] VITALS (12 sets, daily range): BP systolic 82–124; BP diastolic 38–73; PULSE 18–91; RESP 10–30; TEMP 36.4–36.7; O2SAT 96–100; BMI 31.5
--- NOTE | ~2019-05-05 | CT_ITS ---
EXAMINATION: CT BRAIN W/O DATE: 05/05/2019 12:40 INDICATION: Weakness. TECHNIQUE: Computed tomography (CT) of the head was performed without intravenous contrast. The dose- length product was 529.67 mGy-cm. The mA was adjusted according to patient size. Iterative reconstruc tion technique was employed. COMPARISON: CT dated 03/30/2019 FINDINGS: Normal brain parenchymal volume for age. Normal martinez-white differentiation. No acute intrac ranial hemorrhage, infarction, mass or mass effect. No ventriculomegaly or midline shift. Midline sagittal images demonstrate a normal corpus callosum, c raniovertebral junction and sella turcica. Basilar cisterns are patent. Paranasal sinuses and mastoids are pneumatized. No depressed skull fractures. IMPRESSION: 1. No acute intracranial abnormality. Reviewed, dictated and finalized at location A.
--- NOTE | 2019-05-05 12:03 | ED.RECABL ---
HPI - Recheck/Abnormal Lab/Rx General Chief Complaint: Recheck/Abnormal Lab/Rx Stated Complaint: high blood sugar Time Seen by Provider: 05/05/19 12:02 Source: patient Mode of arrival: ambulatory Limitations: no limitations History of Present Illness HPI narrative: A 68 y/o female presents to the ED with c/o high blood sugar. Pt states that she was recently diagnosed with diabetes in December 2018. Her blood sugar has been in the 500's the last few days. She is currently taking Semaglutide, Metformin, and Lipitor and has been compliant. Pt reports vomiting, weakness, and mid-back pain, but denies ABD pain, fever, numbness, vision changes, and dysuria. She has been having frequent falls due to the weakness. Pt was recently hospitalized 1 month ago at [facility]. complaint: abnormal lab (High blood sugar) Initial visit (ago): day(s) (Few) Context: other (New diagnosis of diabetes) Associated symptoms: other (Vomiting, weakness, mid-back pain) Treatments prior to arrival: other medications (Semaglutide, Metformin, Lipitor) Related Data Allergies Allergy/AdvReac Type Severity Reaction Status Date / Time banana Allergy Severe SEVERE Verified 03/30/19 13:32 HIVES acetaminophen [From Tylenol] AdvReac Intermediate n/v Verified 03/30/19 15:49 aspirin AdvReac Intermediate NAUSEA/VOMI Verified 08/14/14 09:08 TING Review of Systems Review of Systems: Narrative: CONSTITUTIONAL: Denies fever, chills, or sweats. EYES: Denies visual changes ENT: Denies rhinorrhea, congestion CARDIOVASCULAR: Denies chest pain RESPIRATORY: Denies cough or dyspnea. GASTROINTESTINAL: Reports vomiting. GENITOURINARY: Denies dysuria or hematuria. SKIN: Denies rash or itching. MUSCULOSKELETAL: Reports middle back pain, began with emesis NEUROLOGIC: Denies headache or numbness, Reports feeling weak, has been ambulatory All systems reviewed & are unremarkable except as noted in HPI and below PMFSH Past Medical History Medical History Anemia Fibromyalgia Hyperlipidemia Hypertension Hypothyroid Ovarian cancer Shingles Type 2 diabetes mellitus Surgical History Surgical History (Updated 05/05/19 @ 12:07 by Shantal Pizano) H/O: hysterectomy At age 33 History of tubal ligation Hx of tonsillectomy Family History Family History Grandparent Family history of premature coronary heart disease, Onset Age: 64 Father Family history of respiratory disorder, Onset Age: 87 Cerebrovascular accident Family history of Alzheimer's disease Patient's father is Family history of cardiovascular disease Mother Family history of primary malignant neoplasm of liver, Onset Age: 64 Family history of malignant neoplasm of breast in first degree relative Patient's mother is , Onset Age: 64 Family history of malignant neoplasm Social History Social History (Updated 05/05/19 @ 12:17 by Shantal Pizano) Smoking status: Never smoker Second hand tobacco smoke exposure: Yes Alcohol intake: current Drinks per week: 1 Substance use: never Gender identity (if verbalized by the patient): Female Spiritual care concerns: No Agree to blood products: Yes Exam Narrative: Exam Narrative: GENERAL: Uncomfortable-appearing,awake, alert HEAD: Normocephalic, atraumatic. EYES: PERRLA and EOMI. ENT: Nares clear, no rhinorrhea or epistaxis. Mucous membranes dry. NECK: Supple. CHEST: No respiratory distress. Tachypnea. No hypoxia. HEART: Tachycardic with regular rhythm. No murmur heard. Normal peripheral pulses. ABDOMEN: Soft, nontender, nondistended, normal active bowel sounds. EXTREMITIES: Normal range of motion. No edema. Thorax: No cervical, thoracic, midline tenderness, no step-offs or deformities, no ecchymoses. + Thoracic paraspinal tenderness. SKIN: Warm, dry, no rash. NEURO: No focal deficits. Alert and oriented X3. EOMs
--- NOTE | 2019-05-05 12:15 | ECG_ITS ---
Measurements Intervals [place] Rate: 73 P: 63 CO: 147 QRS: 24 QRSD: 113 T: 88 QT: 409 QTc: 452 Interpretive Statements SINUS RHYTHM WITH MARKED SINUS ARRHYTHMIA ATRIAL PREMATURE COMPLEXES POSSIBLE LEFT ATRIAL ENLARGEMENT INTRAVENTRICULAR CONDUCTION DELAY VOLTAGE CRITERIA FOR LVH BORDERLINE ST-T WAVE ABNORMALITY- DIFFUSE LEADS BASELINE ARTIFACT- I, II, III, AVR, AVL, AVF, V1-V6 BORDERLINE ECG Electronically Signed On 05-05-2019 15:39:19 CDT by Unruly Panchal D.O.
[2019-05-05 12:17] LABS: Basophils Percent Auto 0.4 % (0.2-1.2); Hematocrit 46.8 % (37.0-47.0); Hemoglobin 14.8 g/dL (12.0-15.0); Immature Granulocyte Absolute 0.03 K/mm3 (0.00-0.031); Immature Granulocyte Percent A 0.4 % (0-0.5); Lymphocytes Absolute Auto 1.19 K/mm3 (0.9-3.2); Lymphocytes Percent Auto 16.6 % (18.3-44.2); Mean Corpuscular HGB Conc 31.6 g/dl (32-36); Mean Corpuscular Hemoglobin 30.5 pg (26-34); Mean Corpuscular Volume 96.5 fl (80-100); Mean Platelet Volume 12.3 fl (7.4-10.4); Monocytes Absolute Auto 0.6 K/mm3 (0.1-0.6); Monocytes Percent Auto 8.1 % (2.6-8.5); Neutrophils Absolute Auto 5.3 K/mm3 (1.3-6.7); Neutrophils Percent Auto 74.5 % (45.5-73.1); Platelet Count Result 272 k/mm3 (150-375); Red Blood Count 4.85 M/mm3 (4.2-5.4); Red Cell Distribution Width 15.6 % (11.5-14.5); White Blood Count 7.2 K/mm3 (4.5-10.0)
[2019-05-05] MEDS: ONDANSETRON INJ 4 MG/2 ML VIAL IV PUSH (12:21)
[2019-05-05] MEDS: SODIUM CHLORIDE 0.9% IV 1,000 ML 999 ML IV CONT ×3 (12:21→15:05)
[2019-05-05 12:22] LABS: Alveolar/Arterial O2 Gradient 22.2 mmHg; Base Excess ABG -18.2 mEq/l (+/-2.0); Carboxyhemoglobin 0.5 % THb (0-2.0); Fractional Inspired Oxygen 21 %; HCO3 ABG 6.4 mEq/l (22.0-26.0); Methemoglobin ABG 0.6 %THb (0-1.5); Oxygen Content ABG 20.6 %vol (16.0-22.0); Oxygen Saturation ABG 97.4 % (95.0-100.0); Oxyhemoglobin 96.5 % THb (90.0-100.0); PO2 ABG 109.3 mmHg (80.0-100.0); Reduced Hemoglobin 2.4 %THb (0-5.0); Total Hemoglobin 15.1 g/dL (12.0-18.0)
[2019-05-05 12:24] LABS: Glucose Point of Care > 500 (65-105)
[2019-05-05 12:24] LABS: Device ROOM AIR; PCO2 ABG 15.2 mmHg (35.0-45.0); Site Drawn LEFT BRACHIAL; pH ABG 7.241 (7.350-7.450)
[2019-05-05 12:32] LABS: Alanine Aminotransferase 17 U/L (4-35); Albumin Level 5.2 g/dL (3.5-5.1); Alkaline Phosphatase 117 U/L (38-126); Aspartate Amino Transferase 16 U/L (14-36); Bilirubin,Total 0.8 mg/dL (0.2-1.3); Blood Urea Nitrogen 44 mg/dL (7-17); Calcium 11.5 mg/dL (8.4-10.2); Carbon Dioxide 9 mmol/L (22-30); Chloride 99 mmol/L (98-107); Estimated Glomerular Filt Rate 32; Magnesium 2.5 mg/dL (1.6-2.3); Potassium 5.1 mmol/L (3.4-5.0); Sodium 137 mmol/L (137-145)
[2019-05-05 12:41] LABS: Glucose 646 mg/dL (65-105)
[2019-05-05] MEDS: INSULIN HUMAN REGULAR (*BKC) 100 UNITS/ML 10 UNITS IV PUSH (12:48)
[2019-05-05] MEDS: INSULIN HUMAN REGULAR (*BKC) 100 UNITS in SODIUM CHLORIDE 0.9% IV 99 ML 11.7 UNITS IV CONT (13:13)
--- NOTE | 2019-05-05 13:15 | PM.IMHP ---
H&P: HPI History of Present Illness Chief complaint: Hyperglycemia. Narrative: Karly Leslie is a 68-year-old female diagnosed with diabetes within the last month, hypertension, hyperlipidemia, and hypothyroidism who presented to the emergency department earlier this afternoon via private vehicle from home for evaluation of hyperglycemia. She was admitted to the [facility] on March 30, 2019 after she provided with complaints of blurry vision and dizziness. It was at that time that she was diagnosed with diabetes with a hemoglobin A1c of 11.2%. She was started on glipizide and metformin, and was seen in office in follow-up on April 08. At that time she reported that her glucoses had been running between 250 and 500. Apparently she receive some education at that visit, and had another follow-up on April 22, still with glucose as high as 500. As she was having pruritus from the glipizide, she was instead started on semaglutide and had her metformin dose increased to 1000 milligrams b.i.d. Unfortunately, she has not felt well since that time and believes that is due to side effects from the semaglutide. She has frequent dizziness, lightheadedness, burning sensation in the epigastrium, nausea, and says she has been vomiting every 30 minutes for the last couple of days. It is to the point where she is so weak that she is having to hold onto things to ambulate around the home. I did review her glucose logs, and did not see a level lower than 387, with most readings being in the high 400s and low 500s. On arrival to the emergency department, she was found to be in diabetic ketoacidosis and is being admitted in this setting. She states compliance with her home medications and has been trying to follow a diabetic diet. We had a long discussion about the need to start insulin given poor response to oral hypoglycemics and low C-peptide level obtained last month. She remains adamant that she will not give herself shots. No fever, chills, sweats, sinus congestion, rhinorrhea, otalgia, odynophagia, headache, chest pain, shortness breath, cough, diarrhea, or dysuria. Review of Systems Review of Systems: Narrative: Twelve systems were reviewed with pertinent positives and negatives as per HPI. No fever, chills, or sweats. No recent cold or flu symptoms. She is having some discomfort in her abdominal muscles due to frequent vomiting. No hematemesis, melena, or hematochezia. Occasional blurry vision. She has been having some pins and needle sensations on a couple of toes on her right foot over the last couple of months. No nonhealing wounds. Except as documented, all other systems were reviewed and are negative. [facility] Past Medical History Medical History (Updated 05/05/19 @ 15:20 by Mayra Verma PA-C) Anemia Fibromyalgia Hyperlipidemia Hypertension Hypothyroid Ovarian cancer At the age of 33, status post hysterectomy. Patient tells me that half an ovary was left during surgery. She required no further treatment. Shingles Type 2 diabetes mellitus Hemoglobin A1c was 11.2% in March 2019. C-peptide 0.63. Surgical History Surgical History H/O: hysterectomy At age 33 History of tubal ligation Hx of tonsillectomy Family History Family History Grandparent Family history of premature coronary heart disease, Onset Age: 64 Father Family history of respiratory disorder, Onset Age: 87 Cerebrovascular accident Family history of Alzheimer's disease Patient's father is Family history of cardiovascular disease Mother Family history of primary malignant neoplasm of liver, Onset Age: 64 Family history of malignant neoplasm of breast in first degree relative Patient's mother is , Onset Age: 64 Family history of malignant neoplasm Social History Social History (Up
--- NOTE | 2019-05-05 13:31 | PC.NURSE ---
Per EDP pt does not require a straight cath to obtain urine prior to admitting to ICU.
[2019-05-05 13:43] LABS: Glucose Point of Care 424 (65-105)
--- NOTE | 2019-05-05 14:01 | PC.NURSE ---
glucose at 1400 424, insulin drip adjusted per protocol. currently infusing at 10.9ml/hr.
--- NOTE | 2019-05-05 14:42 | WPDCNINT ---
Assessment and Plan Assessment and plan (1) DKA (diabetic ketoacidoses): Qualifiers: Diabetes mellitus complication detail: without coma Diabetes mellitus type: type 2 Qualified Code(s): E11.10 - Type 2 diabetes mellitus with ketoacidosis without coma Code(s): E11.10 - Type 2 diabetes mellitus with ketoacidosis without coma Status: Acute Assessment and Plan: patient presented with elevated blood sugars, positive beta hydroxybutyrate, severe metabolic acidosis. Patient was diagnosed with diabetic ketoacidosis, given 2 L of IV fluids and started on insulin infusion. Will give additional fluids IV fluid boluses patient is dehydrated examination - patient started on insulin infusion, continue per DKA protocol - hemoglobin A1c was 11.2 on 03/30/2019 - patient has not been tolerating oral hypoglycemics, may have to go on long-acting insulin sliding scale insulin. (2) Acute kidney injury: Code(s): N17.9 - Acute kidney failure, unspecified Status: Acute Assessment and Plan: patient with acute kidney injury likely related to dehydration, nausea, vomiting, decreased p.o. intake, diabetic ketoacidosis and hyperglycemia - patient has received 2 L of IV fluid bolus in the ED, will give additional 1 L IV fluid bolus - continue to monitor urine output, electrolytes and renal function (3) Acute dehydration: Code(s): E86.0 - Dehydration Status: Acute Assessment and Plan: likely related to nausea, vomiting, decreased p.o. intake, hyperglycemia and diabetic ketoacidosis (4) Type 2 diabetes mellitus: Qualifiers: Diabetes mellitus complication status: without complication Diabetes mellitus vermin exterminator insulin use: without vermin exterminator use Qualified Code(s): E11.9 - Type 2 diabetes mellitus without complications Code(s): E11.9 - Type 2 diabetes mellitus without complications Status: Acute Assessment and Plan: will hold oral hypoglycemics - inclusion paraeducator and dietitian to evaluate the patient (5) Hypothyroid: Qualifiers: Hypothyroidism type: unspecified Qualified Code(s): E03.9 - Hypothyroidism, unspecified Code(s): E03.9 - Hypothyroidism, unspecified Status: Acute Assessment and Plan: will continue levothyroxine (6) Hypertension: Qualifiers: Hypertension type: essential hypertension Qualified Code(s): I10 - Essential (primary) hypertension Code(s): I10 - Essential (primary) hypertension Status: Acute Assessment and Plan: essential hypertension, patient on metoprolol and losartan at home, blood pressures borderline at this time, will hold all antihypertensive (7) Hyperlipidemia: Qualifiers: Hyperlipidemia type: unspecified Qualified Code(s): E78.5 - Hyperlipidemia, unspecified Code(s): E78.5 - Hyperlipidemia, unspecified Status: Acute Assessment and Plan: will restart statin once patient is taking p.o. (8) DVT prophylaxis: Code(s): Z29.9 - Encounter for prophylactic measures, unspecified Status: Acute Assessment and Plan: SCD and ambulation Additional Plan discussed with patient updated her with her condition and plan of care. I answered all questions. Patient asks when she can go home, I did tell her that she will be in the ICU at least today and in the hospital for a couple of days till we get her sugars under control and the acidosis resolved code status: Full code Critical care time spent: 38 minutes Due to a high probability of clinically significant, life threatening deterioration, the patient required my highest level of preparedness to intervene emergently and I personally spent this critical care time directly and personally managing the patient. This critical care time included obtaining a history; examining the patient; pulse oximetry; ordering and review of studies; arranging urgent treatment
--- NOTE | 2019-05-05 14:43 | ADMGEN ---
This patient, Karly Leslie, was admitted to Intensive Care Unit-7 at 1405. Patient/family oriented to hospital policies and general routines including ID bracelet, bed and alarms, visiting hours, pain management, procedures, bathroom and other care routines, personal items, smoking policy, room service/diet, and visiting hours. Valuables list has been completed. Information on how to activate the Rapid Response Team has been discussed. Patient/Family are encouraged to report perceived risks to care and to ask questions if they do not understand what they are told or what they should do.
--- NOTE | 2019-05-05 14:48 | ADMGEN ---
This patient, Karly Leslie, was admitted to Intensive Care Unit-7. Patient/family oriented to hospital policies and general routines including ID bracelet, bed and alarms, visiting hours, pain management, procedures, bathroom and other care routines, personal items, smoking policy, room service/diet, and visiting hours. Valuables list has been completed. Information on how to activate the Rapid Response Team has been discussed. Patient/Family are encouraged to report perceived risks to care and to ask questions if they do not understand what they are told or what they should do.
[2019-05-05] MEDS: SODIUM CHLORIDE 0.9% IV 1,000 ML 125 ML IV CONT (15:05)
[2019-05-05 15:11] LABS: Glucose Point of Care 317 (65-105)
[2019-05-05 15:14] LABS: Add Urine Microscopic? YES; Appearance Urine Clear (Clear); Bilirubin Urine Negative (Negative); Blood Urine 1+ (Negative); Color Urine Straw (Yellow); Glucose Urine UA 3+ mg/dL (Negative); Ketones Urine 2+ mg/dL (Negative); Leukocyte Esterase Ur Negative LEU/UL (Negative); Mucus Urine Rare /lpf; Nitrate Urine Negative (Negative); Protein Urine 1+ mg/dL (Negative); RBC Urine 0-2 /hpf (0-2); Specific Grav Ur 1.024 (1.001-1.035); Squamous Epithelial Cell Urine Occasional /hpf (Few); Urobilinogen Urine Negative mg/dL (<2.0); WBC Urine 0-3 /hpf
[2019-05-05 16:09] LABS: Glucose Point of Care 242 (65-105)
[2019-05-05 16:22] LABS: Hemoglobin A1C 13.4 % (<5.7)
[2019-05-05 17:08] LABS: Glucose Point of Care 193 (65-105)
[2019-05-05] MEDS: KCL 20 MEQ/D5/0.45% SOD CHL 1,000 ML 150 ML IV CONT (17:09)
[2019-05-05] MEDS: hetaSTARCH 6%/NACL 500 ML 250 ML IV CONT (17:20)
[2019-05-05 18:10] LABS: Glucose Point of Care 183 (65-105)
[2019-05-05 19:06] LABS: Glucose Point of Care 187 (65-105)
[2019-05-05 21:00] LABS: Glucose Point of Care 155 (65-105)
[2019-05-05 21:11] LABS: Blood Urea Nitrogen 36 mg/dL (7-17); Calcium 8.8 mg/dL (8.4-10.2); Carbon Dioxide 18 mmol/L (22-30); Chloride 117 mmol/L (98-107); Estimated CRCL calculation 53 ml/min; Estimated Glomerular Filt Rate > 60; Glucose 160 mg/dL (65-105); Phosphorus 1.1 mg/dL (2.5-4.5); Potassium 3.6 mmol/L (3.4-5.0); Sodium 141 mmol/L (137-145)
[2019-05-05 22:10] LABS: Glucose Point of Care 137 (65-105)
[2019-05-05] MEDS: PANTOPRAZOLE SODIUM IV 40 MG VIAL IV PUSH (22:11)
[2019-05-05] MEDS: SODIUM CHLORIDE 0.9% IV 1,000 ML 500 ML IV CONT (23:01)
[2019-05-05 23:07] LABS: Glucose Point of Care 134 (65-105)
[2019-05-05 23:28] LABS: Prothrombin Time 12.8 Seconds (11.1-14.7)
[2019-05-05 23:29] LABS: Blood Urea Nitrogen 34 mg/dL (7-17); Calcium 8.9 mg/dL (8.4-10.2); Carbon Dioxide 18 mmol/L (22-30); Chloride 118 mmol/L (98-107); Estimated CRCL calculation 60 ml/min; Estimated Glomerular Filt Rate > 60; Glucose 154 mg/dL (65-105); Potassium 3.5 mmol/L (3.4-5.0); Sodium 139 mmol/L (137-145)
[2019-05-06] VITALS (20 sets, daily range): BP systolic 77–116; BP diastolic 41–67; PULSE 70–97; RESP 10–23; TEMP 36.4–36.8; O2SAT 94–100; BMI 33.8
[2019-05-06] MEDS: INSULIN HUMAN REGULAR (*BKC) 100 UNITS in SODIUM CHLORIDE 0.9% IV 99 ML 5.9 UNITS IV CONT (00:06)
[2019-05-06] MEDS: KCL 20 MEQ/D5/0.45% SOD CHL 1,000 ML 150 ML IV CONT (00:06)
[2019-05-06 01:08] LABS: Glucose Point of Care 130 (65-105)
[2019-05-06 01:13] LABS: Glucose Point of Care 116 (65-105)
[2019-05-06 02:17] LABS: Glucose Point of Care 105 (65-105)
[2019-05-06 03:14] LABS: Glucose Point of Care 110 (65-105)
[2019-05-06 04:24] LABS: Glucose Point of Care 138 (65-105)
[2019-05-06 04:31] LABS: Basophils Percent Auto 0.3 % (0.2-1.2); Eosinophils Percent Auto 0.4 % (0-4.4); Hematocrit 34.3 % (37.0-47.0); Immature Granulocyte Absolute 0.02 K/mm3 (0.00-0.031); Immature Granulocyte Percent A 0.3 % (0-0.5); Lymphocytes Absolute Auto 1.39 K/mm3 (0.9-3.2); Lymphocytes Percent Auto 19.3 % (18.3-44.2); Mean Corpuscular HGB Conc 32.1 g/dl (32-36); Mean Corpuscular Hemoglobin 30.9 pg (26-34); Mean Corpuscular Volume 96.3 fl (80-100); Mean Platelet Volume 12.1 fl (7.4-10.4); Monocytes Absolute Auto 0.7 K/mm3 (0.1-0.6); Monocytes Percent Auto 9.7 % (2.6-8.5); Platelet Count Result 155 k/mm3 (150-375); Red Blood Count 3.56 M/mm3 (4.2-5.4); Red Cell Distribution Width 15.6 % (11.5-14.5); White Blood Count 7.2 K/mm3 (4.5-10.0)
[2019-05-06 04:47] LABS: Alanine Aminotransferase 11 U/L (4-35); Albumin Level 2.6 g/dL (3.5-5.1); Alkaline Phosphatase 58 U/L (38-126); Aspartate Amino Transferase 14 U/L (14-36); Bilirubin,Total 0.4 mg/dL (0.2-1.3); Blood Urea Nitrogen 28 mg/dL (7-17); Calcium 8.9 mg/dL (8.4-10.2); Carbon Dioxide 15 mmol/L (22-30); Chloride 119 mmol/L (98-107); Estimated CRCL calculation 69 ml/min; Estimated Glomerular Filt Rate > 60; Glucose 130 mg/dL (65-105); Potassium 3.7 mmol/L (3.4-5.0); Sodium 139 mmol/L (137-145)
[2019-05-06 05:14] LABS: Glucose Point of Care 173 (65-105)
[2019-05-06] MEDS: KCL 20 MEQ/D5/0.45% SOD CHL 1,000 ML 200 ML IV CONT (06:20)
[2019-05-06 06:24] LABS: Glucose Point of Care 190 (65-105)
[2019-05-06 07:08] LABS: Glucose Point of Care 148 (65-105)
[2019-05-06 07:50] LABS: Blood Urea Nitrogen 26 mg/dL (7-17); Calcium 8.6 mg/dL (8.4-10.2); Carbon Dioxide 16 mmol/L (22-30); Chloride 119 mmol/L (98-107); Estimated CRCL calculation 72 ml/min; Estimated Glomerular Filt Rate > 60; Glucose 143 mg/dL (65-105); Potassium 3.2 mmol/L (3.4-5.0); Sodium 140 mmol/L (137-145)
[2019-05-06 08:15] LABS: Glucose Point of Care 132 (65-105)
[2019-05-06 09:11] LABS: Glucose Point of Care 111 (65-105)
[2019-05-06] MEDS: PANTOPRAZOLE SODIUM IV 40 MG VIAL IV PUSH ×2 (10:10→20:19)
[2019-05-06 10:14] LABS: Glucose Point of Care 107 (65-105)
--- NOTE | 2019-05-06 10:59 | WPDINTPN ---
Progress Note: A&P Assessment and Plan (1) DKA (diabetic ketoacidoses): Qualifiers: Diabetes mellitus complication detail: without coma Diabetes mellitus type: type 2 Qualified Code(s): E11.10 - Type 2 diabetes mellitus with ketoacidosis without coma Code(s): E11.10 - Type 2 diabetes mellitus with ketoacidosis without coma Status: Acute Assessment and Plan: patient presented with elevated blood sugars, positive beta hydroxybutyrate, severe metabolic acidosis. Patient was diagnosed with diabetic ketoacidosis - patient was aggressively hydrated with IV fluids and started on insulin infusion. - Anion gap has closed patient still requiring approximately 4 units of insulin per hour. Although patient denies any abdominal pain nausea vomiting she does not feel like eating at this time. - I will give patient Lantus subcutaneous at this time. Continue insulin infusion under patient starts eating. Take dextrose out of IV fluids to allow decrease insulin infusion rate so the patient can be position to subcutaneous insulin eventually - hemoglobin A1c was 13.4 - patient has not been tolerating oral hypoglycemics as an outpatient or may be noncompliant.. She may have to go on insulin as an outpatient when discharged. (2) Metabolic acidosis: Code(s): E87.2 - Acidosis Status: Acute Assessment and Plan: patient continues to be acidotic but now it appears the patient has developed hyperchloremic acidosis from hydration with saline. Despite closure of anion gap, her bicarb is still low with increase in chloride. Will give IV bicarbonate and change IV fluids to take out chloride and add bicarb since patient is not in DKA at this time and has metabolic acidosis from Lida and hyperchloremia. monitor labs. ABG done reviewed (3) Acute kidney injury: Code(s): N17.9 - Acute kidney failure, unspecified Status: Acute Assessment and Plan: patient with acute kidney injury likely related to dehydration, nausea, vomiting, decreased p.o. intake, diabetic ketoacidosis and hyperglycemia - Patient was aggressively hydrated with IV fluids. - Creatinine has now normalized. 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 use: without dedicated intermodal truck driver use Qualified Code(s): E11.9 - Type 2 diabetes mellitus without complications Code(s): E11.9 - Type 2 diabetes mellitus without complications Status: Acute Assessment and Plan: will hold oral hypoglycemics - tobacco educator and dietitian to evaluate the patient (6) Hypothyroid: Qualifiers: Hypothyroidism type: unspecified Qualified Code(s): E03.9 - Hypothyroidism, unspecified Code(s): E03.9 - Hypothyroidism, unspecified Status: Acute Assessment and Plan: will continue levothyroxine (7) Hypertension: Qualifiers: Hypertension type: essential hypertension Qualified Code(s): I10 - Essential (primary) hypertension Code(s): I10 - Essential (primary) hypertension Status: Acute Assessment and Plan: all antihypertensives held due to borderline blood pressure. Monitor (8) Hyperlipidemia: Qualifiers: Hyperlipidemia type: unspecified Qualified Code(s): E78.5 - Hyperlipidemia, unspecified Code(s): E78.5 - Hyperlipidemia, unspecified Status: Acute Assessment and Plan: will restart statin once patient is taking p.o. (9) Hypokalemia: Code(s): E87.6 - Hypokalemia Status: Acute Assessment and Plan: replace low-potassium (10) DVT prophylaxis: Code(s): Z29.9 - Encounter for prophylactic salome
[2019-05-06 11:03] LABS: Glucose Point of Care 113 (65-105)
[2019-05-06] MEDS: POTASSIUM CHLORIDE 20 MEQ PACKET (FOR LIQUID) 40 MEQ PO (11:18)
[2019-05-06] MEDS: SODIUM BICARBONATE 8.4% 50 MEQ/50 ML VIAL 100 MEQ IV PUSH (11:19)
[2019-05-06] MEDS: SODIUM BICARBONATE 8.4% 100 MEQ in WATER, STERILE FOR INJECTION 1,000 ML IV CONT ×2 (12:03→22:45)
[2019-05-06] MEDS: INSULIN GLARGINE (*BKC) 100 UNITS/ML 15 UNITS SUB-Q (12:04)
[2019-05-06 12:12] LABS: Glucose Point of Care 91 (65-105)
[2019-05-06 13:08] LABS: Glucose Point of Care 94 (65-105)
[2019-05-06 14:17] LABS: Glucose Point of Care 90 (65-105)
[2019-05-06 17:03] LABS: Glucose Point of Care 135 (65-105)
[2019-05-06 18:45] LABS: Blood Urea Nitrogen 20 mg/dL (7-17); Calcium 8.7 mg/dL (8.4-10.2); Carbon Dioxide 20 mmol/L (22-30); Chloride 112 mmol/L (98-107); Estimated CRCL calculation 85 ml/min; Estimated Glomerular Filt Rate > 60; Glucose 149 mg/dL (65-105); Magnesium 1.8 mg/dL (1.6-2.3); Potassium 4.5 mmol/L (3.4-5.0); Sodium 137 mmol/L (137-145)
[2019-05-06 20:18] LABS: Glucose Point of Care 211 (65-105)
[2019-05-06] MEDS: ONDANSETRON INJ 4 MG/2 ML VIAL IV PUSH (20:20)
[2019-05-06] MEDS: INSULIN ASPART (*BKC) 100 UNITS/ML SUB-Q (20:21)
[2019-05-07] VITALS (12 sets, daily range): BP systolic 97–135; BP diastolic 52–71; PULSE 70–92; RESP 15–22; TEMP 35.9–36.8; O2SAT 95–98
[2019-05-07 00:14] LABS: Glucose Point of Care 151 (65-105)
[2019-05-07] MEDS: ONDANSETRON INJ 4 MG/2 ML VIAL IV PUSH (01:51)
[2019-05-07 04:28] LABS: Glucose Point of Care 148 (65-105)
[2019-05-07 04:50] LABS: Hematocrit 33.9 % (37.0-47.0); Hemoglobin 11.1 g/dL (12.0-15.0); Mean Corpuscular HGB Conc 32.7 g/dl (32-36); Mean Corpuscular Hemoglobin 30.3 pg (26-34); Mean Corpuscular Volume 92.6 fl (80-100); Mean Platelet Volume 12.1 fl (7.4-10.4); Platelet Count Result 147 k/mm3 (150-375); Red Blood Count 3.66 M/mm3 (4.2-5.4); Red Cell Distribution Width 15.6 % (11.5-14.5); White Blood Count 5.6 K/mm3 (4.5-10.0)
[2019-05-07 05:07] LABS: Alanine Aminotransferase 11 U/L (4-35); Albumin Level 2.3 g/dL (3.5-5.1); Alkaline Phosphatase 56 U/L (38-126); Aspartate Amino Transferase 16 U/L (14-36); Bilirubin,Total 0.5 mg/dL (0.2-1.3); Blood Urea Nitrogen 16 mg/dL (7-17); Calcium 8.7 mg/dL (8.4-10.2); Carbon Dioxide 23 mmol/L (22-30); Chloride 109 mmol/L (98-107); Estimated CRCL calculation 85 ml/min; Estimated Glomerular Filt Rate > 60; Glucose 137 mg/dL (65-105); Magnesium 1.7 mg/dL (1.6-2.3); Potassium 3.4 mmol/L (3.4-5.0); Sodium 134 mmol/L (137-145)
[2019-05-07 05:32] LABS: Phosphorus < 1.0 mg/dL (2.5-4.5)
--- NOTE | 2019-05-07 07:45 | WPDINTPN ---
Progress Note: A&P Assessment and Plan (1) DKA (diabetic ketoacidoses): Qualifiers: Diabetes mellitus complication detail: without coma Diabetes mellitus type: type 2 Qualified Code(s): E11.10 - Type 2 diabetes mellitus with ketoacidosis without coma Code(s): E11.10 - Type 2 diabetes mellitus with ketoacidosis without coma Status: Acute Assessment and Plan: patient presented with elevated blood sugars, positive beta hydroxybutyrate, severe metabolic acidosis. Patient was diagnosed with diabetic ketoacidosis - patient was aggressively hydrated with IV fluids and started on insulin infusion. - Anion gap has closed - patient transitioned to subcutaneous Lantus and insulin - hemoglobin A1c was 13.4 - patient has not been tolerating oral hypoglycemics as an outpatient or may be noncompliant.. She may have to go on insulin as an outpatient when discharged. - diabetic Education was done yesterday (2) Metabolic acidosis: Code(s): E87.2 - Acidosis Status: Acute Assessment and Plan: multifactorial from DKA and hyperchloremia. Resolved with closure of anion gap and then IV fluids with bicarb. Hyperchloremia has also improved. Discontinue all fluids. Advance diet. (3) Acute kidney injury: Code(s): N17.9 - Acute kidney failure, unspecified Status: Acute Assessment and Plan: patient with acute kidney injury likely related to dehydration, nausea, vomiting, decreased p.o. intake, diabetic ketoacidosis and hyperglycemia - Patient was aggressively hydrated with IV fluids. - Creatinine has now normalized. - continue to monitor urine output, electrolytes and renal function (4) Acute dehydration: Code(s): E86.0 - Dehydration Status: Acute Assessment and Plan: Improved with IV fluids (5) Type 2 diabetes mellitus: Qualifiers: Diabetes mellitus complication status: without complication Diabetes mellitus assisted insulin use: without assisted use Qualified Code(s): E11.9 - Type 2 diabetes mellitus without complications Code(s): E11.9 - Type 2 diabetes mellitus without complications Status: Acute Assessment and Plan: will hold oral hypoglycemics - adaptive physical educator and dietitian saw the patient yesterday (6) Hypothyroid: Qualifiers: Hypothyroidism type: unspecified Qualified Code(s): E03.9 - Hypothyroidism, unspecified Code(s): E03.9 - Hypothyroidism, unspecified Status: Acute Assessment and Plan: will continue levothyroxine (7) Hypertension: Qualifiers: Hypertension type: essential hypertension Qualified Code(s): I10 - Essential (primary) hypertension Code(s): I10 - Essential (primary) hypertension Status: Acute Assessment and Plan: all antihypertensives held due to borderline blood pressure. blood pressures improved. Monitor (8) Hyperlipidemia: Qualifiers: Hyperlipidemia type: unspecified Qualified Code(s): E78.5 - Hyperlipidemia, unspecified Code(s): E78.5 - Hyperlipidemia, unspecified Status: Acute Assessment and Plan: Lipitor (9) Hypokalemia: Code(s): E87.6 - Hypokalemia Status: Acute Assessment and Plan: replace low-potassium (10) Hypophosphatemia: Code(s): E83.39 - Other disorders of phosphorus metabolism Status: Acute Assessment and Plan: replace with IV K-Phos (11) DVT prophylaxis: Code(s): Z29.9 - Encounter for prophylactic measures, unspecified Status: Acute Assessment and Plan: SCD and ambulation out of bed today PT consult Additional Plan patient would like to be DNR DNI. Patient states that she does not want to be any life support. She does not want any chest compressions or shock electrical shock. I confirmed this directly with the patient. Transfer out of ICU today. Subjective Da
[2019-05-07] MEDS: PANTOPRAZOLE SODIUM IV 40 MG VIAL IV PUSH ×2 (08:22→21:15)
[2019-05-07 08:44] LABS: Glucose Point of Care 161 (65-105)
[2019-05-07] MEDS: INSULIN GLARGINE (*BKC) 100 UNITS/ML 15 UNITS SUB-Q (08:46)
[2019-05-07] MEDS: ATORVASTATIN 20 MG TABLET PO (10:36)
[2019-05-07] MEDS: LEVOTHYROXINE SODIUM 25 MCG TABLET PO (10:37)
[2019-05-07 13:08] LABS: Glucose Point of Care 171 (65-105)
--- NOTE | 2019-05-07 13:16 | PCDIET ---
Nutrition Follow-Up Complete: Nutrition Diagnosis: Inadequate oral intake at present related to diabetes mellitus as evidenced by NPO diet. Nutrition Goal: Patient to consume 50% or more of meals on advanced diet. Goal in progress. Patient only consumed 40-50% of meals thus far; indicates she is afraid to consume much carbohydrate containing foods. Reviewed carbohydrate counting and encouraged 45-60g carbohydrate at each meal. Also encouraged protein intake to help stabilize glucose levels. See Nutritional Teaching note for additional details. Last recorded weight is 79.1 kg which is increased. +I/O. Bowel Motility: Last documented bowel movement on 05/06/19. Labs Reviewed: Glu (171), Na (134), Alb (2.3), PO4 (<1) Meds Noted: KPhos, Protonix, Novolog, Lantus Additional Notes: No documented skin breakdown. Will continue to monitor with same goal. Nutrition Monitoring and Evaluation: Follow up every 5 days.
--- NOTE | 2019-05-07 16:44 | PC.NURSE ---
Pt transfered from ICU/7 to room 310
[2019-05-07 18:36] LABS: Glucose Point of Care 221 (65-105)
[2019-05-07] MEDS: INSULIN ASPART (*BKC) 100 UNITS/ML SUB-Q (18:57)
[2019-05-07 22:36] LABS: Glucose Point of Care 225 (65-105)
[2019-05-08] VITALS: PULSE 78
[2019-05-08] MEDS: ONDANSETRON INJ 4 MG/2 ML VIAL IV PUSH (00:14)
[2019-05-08 04:00] VITALS: PULSE 78
[2019-05-08] MEDS: LEVOTHYROXINE SODIUM 25 MCG TABLET PO (05:24)
[2019-05-08 05:41] LABS: Glucose Point of Care 174 (65-105)
[2019-05-08 06:12] LABS: Hematocrit 33.2 % (37.0-47.0); Hemoglobin 10.9 g/dL (12.0-15.0); Mean Corpuscular HGB Conc 32.8 g/dl (32-36); Mean Corpuscular Hemoglobin 30.1 pg (26-34); Mean Corpuscular Volume 91.7 fl (80-100); Mean Platelet Volume 12.4 fl (7.4-10.4); Platelet Count Result 120 k/mm3 (150-375); Red Blood Count 3.62 M/mm3 (4.2-5.4); Red Cell Distribution Width 15.5 % (11.5-14.5); White Blood Count 3.8 K/mm3 (4.5-10.0)
[2019-05-08 07:46] LABS: Alanine Aminotransferase 11 U/L (4-35); Albumin Level 2.4 g/dL (3.5-5.1); Alkaline Phosphatase 58 U/L (38-126); Aspartate Amino Transferase 19 U/L (14-36); Bilirubin,Total 0.3 mg/dL (0.2-1.3); Blood Urea Nitrogen 12 mg/dL (7-17); Calcium 8.6 mg/dL (8.4-10.2); Carbon Dioxide 24 mmol/L (22-30); Chloride 108 mmol/L (98-107); Estimated CRCL calculation 86 ml/min; Estimated Glomerular Filt Rate > 60; Glucose 170 mg/dL (65-105); Magnesium 1.7 mg/dL (1.6-2.3); Phosphorus 2.1 mg/dL (2.5-4.5); Potassium 3.2 mmol/L (3.4-5.0); Sodium 134 mmol/L (137-145)
[2019-05-08] MEDS: ATORVASTATIN 20 MG TABLET PO ×2 (08:54→20:41)
[2019-05-08 08:58] LABS: Glucose Point of Care 186 (65-105)
[2019-05-08] MEDS: INSULIN GLARGINE (*BKC) 100 UNITS/ML 15 UNITS SUB-Q (08:59)
[2019-05-08] MEDS: PANTOPRAZOLE SODIUM IV 40 MG VIAL IV PUSH ×2 (09:02→20:42)
[2019-05-08 13:12] LABS: Glucose Point of Care 315 (65-105)
[2019-05-08] MEDS: INSULIN ASPART (*BKC) 100 UNITS/ML SUB-Q ×2 (13:28→17:41)
--- NOTE | 2019-05-08 13:45 | PCCDE ---
DIABETES EDUCATION F/UP: insulin orders: 15 units Lantus daily, moderate dose correction scale. Met with pt; pt smiling and sts feeling much better today. Sts has not yet given self injection. Provided encouragement and reinforced how insulin treatment is making her feel better and will need to continue to do so to stay healthy. Advised pt she will need to do her next injection before discharge and nurse will be here to help her. Reviewed action of long acting insulin and when to take. Advised may need mealtime insulin but has not been ordered at this time. Pt was not able to state sx of hyper and hypoglycemia. Reviewed causes, sx and tx of hypo and hyperglycemia. Reinforced when to SMBG, recording results and sharing results with healthcare team. Pt sts has been seeing a doctor closer to her home but wants to go back to [place]; encouraged pt to make f/up appt MIGUELITO. Recommended to f/up with OP diabetes education and pt has educator contact info for questions. Discussed with RN need to have pt give self injection before discharge.
[2019-05-08 14:00] VITALS: BP 113/42; PULSE 77; RESP 18; TEMP 36.8; O2SAT 96
--- NOTE | 2019-05-08 16:08 | PM.IMPN ---
Progress Note: A&P Assessment and Plan (1) DKA (diabetic ketoacidoses): Qualifiers: Diabetes mellitus complication detail: without coma Diabetes mellitus type: type 2 Qualified Code(s): E11.10 - Type 2 diabetes mellitus with ketoacidosis without coma Code(s): E11.10 - Type 2 diabetes mellitus with ketoacidosis without coma Status: Acute Assessment and Plan: AIC is 13 Patient is adamant that she will not give herself shots and is refusing insulin. I explained insulin solostar is good once a day (2) Acute kidney injury: Code(s): N17.9 - Acute kidney failure, unspecified Status: Resolved Assessment and Plan: Due to profound dehydration from poor oral intake, and vomiting. Resolved with fluids (3) Acute dehydration: Code(s): E86.0 - Dehydration Status: Acute Assessment and Plan: Plan is as detailed above. 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 Plan as detailed above, will likely need long-acting insulin. (5) Hypertension: Qualifiers: Hypertension type: essential hypertension Qualified Code(s): I10 - Essential (primary) hypertension Code(s): I10 - Essential (primary) hypertension Status: Chronic Assessment and Plan: Continue to watch Bps, Bp is 113/42 (6) Hypothyroid: Qualifiers: Hypothyroidism type: unspecified Qualified Code(s): E03.9 - Hypothyroidism, unspecified Code(s): E03.9 - Hypothyroidism, unspecified Status: Acute Assessment and Plan: Continue levothyroxine and check TSH. (7) Hyperlipidemia: Qualifiers: Hyperlipidemia type: unspecified Qualified Code(s): E78.5 - Hyperlipidemia, unspecified Code(s): E78.5 - Hyperlipidemia, unspecified Status: Acute Assessment and Plan: Will resume statin once she is tolerating p.o. Subjective Date/time seen: 05/08/19 16:08 Interval history: Karly Leslie is a 68-year-old female diagnosed with diabetes within the last month, hypertension, hyperlipidemia, and hypothyroidism who presented to the emergency department earlier this afternoon via private vehicle from home for evaluation of hyperglycemia. She was admitted to the [facility] on March 30, 2019 after she provided with complaints of blurry vision and dizziness. It was at that time that she was diagnosed with diabetes with a hemoglobin A1c of 11.2%. She was started on glipizide and metformin, and was seen in office in follow-up on April 08. Pt treated for DKA in ICU, Pt is presently on medical floor, sugars are in the 300s. Pt states she had a reaction to glizide. but can tolerate metformin. Pt seen by Simona DM educator. Adviced insulin on discharge. Review of Systems Review of Systems: All systems reviewed & are unremarkable except as noted in HPI and below Exam Narrative: Exam Narrative: General: A well-developed, acutely ill-appearing female sitting up in bed. HEENT: Normocephalic, atraumatic. PERRL, EOMI. Sclerae anicteric. Oral mucosa is extremely dry and lips are chapped. Oropharynx clear. Neck: Supple. Respiratory: Lungs are clear to auscultation bilaterally. Cardiovascular: Regular rate and rhythm with S1-S2. Gastrointestinal: Abdomen is soft, nontender, and nondistended with positive bowel sounds. Skin: Warm and dry. No rash or lesions on limited exam. Extremities: No cyanosis, clubbing, or edema. Radial and pedal pulses intact. Neurological: Alert. Cranial nerves 2-12 are grossly intac
[2019-05-08 17:20] LABS: Glucose Point of Care 214 (65-105)
[2019-05-08] MEDS: metFORMIN HCL XR 500 MG TAB.SR.24H PO (17:45)
[2019-05-08 20:00] VITALS: PULSE 81
[2019-05-08 20:42] VITALS: PULSE 75
[2019-05-08] MEDS: METOPROLOL SUCCINATE EXT REL 50 MG TABCR PO (20:42)
[2019-05-08 21:10] VITALS: BP 102/64; PULSE 78; RESP 16; TEMP 36.8; O2SAT 96
[2019-05-08 21:34] LABS: Glucose Point of Care 226 (65-105)
[2019-05-09] VITALS: PULSE 63
[2019-05-09 04:00] VITALS: PULSE 72
[2019-05-09] MEDS: LEVOTHYROXINE SODIUM 25 MCG TABLET PO (05:47)
[2019-05-09 06:00] VITALS: BP 118/65; PULSE 72; RESP 16; TEMP 36.6; O2SAT 95
[2019-05-09 06:31] LABS: Hematocrit 33.1 % (37.0-47.0); Hemoglobin 10.5 g/dL (12.0-15.0); Mean Corpuscular HGB Conc 31.7 g/dl (32-36); Mean Corpuscular Volume 94.6 fl (80-100); Mean Platelet Volume 12.4 fl (7.4-10.4); Platelet Count Result 113 k/mm3 (150-375); Red Cell Distribution Width 15.6 % (11.5-14.5); White Blood Count 3.9 K/mm3 (4.5-10.0)
[2019-05-09 06:50] LABS: Alanine Aminotransferase 12 U/L (4-35); Albumin Level 2.6 g/dL (3.5-5.1); Alkaline Phosphatase 61 U/L (38-126); Aspartate Amino Transferase 17 U/L (14-36); Bilirubin,Total 0.3 mg/dL (0.2-1.3); Blood Urea Nitrogen 9 mg/dL (7-17); Calcium 8.8 mg/dL (8.4-10.2); Carbon Dioxide 33 mmol/L (22-30); Chloride 103 mmol/L (98-107); Estimated CRCL calculation 86 ml/min; Estimated Glomerular Filt Rate > 60; Glucose 196 mg/dL (65-105); Magnesium 1.7 mg/dL (1.6-2.3); Phosphorus 2.3 mg/dL (2.5-4.5); Potassium 3.4 mmol/L (3.4-5.0); Sodium 135 mmol/L (137-145)
[2019-05-09 08:00] VITALS: PULSE 72; RESP 16; O2SAT 95
[2019-05-09 10:35] LABS: Glucose Point of Care 188 (65-105)
[2019-05-09] MEDS: INSULIN GLARGINE (*BKC) 100 UNITS/ML 15 UNITS SUB-Q (11:02)
[2019-05-09] MEDS: PRAMIPEXOLE 1 MG TABLET 3 MG PO (11:03)
[2019-05-09] MEDS: LOSARTAN POTASSIUM 50 MG TABLET PO (11:03)
[2019-05-09] MEDS: PANTOPRAZOLE SODIUM IV 40 MG VIAL IV PUSH (11:03)
[2019-05-09] MEDS: metFORMIN HCL XR 500 MG TAB.SR.24H PO (11:03)
[2019-05-09 12:58] LABS: Glucose Point of Care 221 (65-105)
--- NOTE | 2019-05-09 13:12 | PM.DS ---
DS: Diagnosis Admitting Diagnosis Admitting Diagnosis: Type 2 diabetes mellitus with ketoacidosis without coma Discharge Diagnosis (1) DKA (diabetic ketoacidoses): Qualifiers: Diabetes mellitus complication detail: without coma Diabetes mellitus type: type 2 Qualified Code(s): E11.10 - Type 2 diabetes mellitus with ketoacidosis without coma Code(s): E11.10 - Type 2 diabetes mellitus with ketoacidosis without coma Status: Acute Assessment and Plan: AIC is 13 in the hospital. Long discussion about insulin Adviced insulin solostar once a day Karly Leslie is a 68-year-old female diagnosed with diabetes within the last month, hypertension, hyperlipidemia, and hypothyroidism who presented to the emergency department earlier this afternoon via private vehicle from home for evaluation of hyperglycemia. She was admitted to the [facility] [place] on March 30, 2019 after she provided with complaints of blurry vision and dizziness. It was at that time that she was diagnosed with diabetes with a hemoglobin A1c of 11.2%. She was started on glipizide and metformin, and was seen in office in follow-up on April 08. Pt treated for DKA in ICU, Pt is presently on medical floor, sugars are in the 300s. Pt states she had a reaction to glipizide. but can tolerate metformin. Pt seen by Simona DM educator. Adviced insulin on discharge. (2) Acute kidney injury: Code(s): N17.9 - Acute kidney failure, unspecified Status: Resolved Assessment and Plan: Secondary to dehydration from poor oral intake, and vomiting. Resolved with fluids, creat is NORMAL now. (3) Acute dehydration: Code(s): E86.0 - Dehydration Status: Acute Assessment and Plan: Plan is as detailed above. (4) Type 2 diabetes mellitus: Qualifiers: Diabetes mellitus complication status: without complication Diabetes mellitus senior care insulin use: without senior care use Qualified Code(s): E11.9 - Type 2 diabetes mellitus without complications Code(s): E11.9 - Type 2 diabetes mellitus without complications Status: Acute Assessment and Plan: Dietitian and breastfeeding educator consulted. Plan as detailed above, will likely need long-acting insulin. (5) Hypertension: Qualifiers: Hypertension type: essential hypertension Qualified Code(s): I10 - Essential (primary) hypertension Code(s): I10 - Essential (primary) hypertension Status: Chronic Assessment and Plan: Chronic and stable (6) Hypothyroid: Qualifiers: Hypothyroidism type: unspecified Qualified Code(s): E03.9 - Hypothyroidism, unspecified Code(s): E03.9 - Hypothyroidism, unspecified Status: Acute Assessment and Plan: Continue levothyroxine and check TSH. (7) Hyperlipidemia: Qualifiers: Hyperlipidemia type: unspecified Qualified Code(s): E78.5 - Hyperlipidemia, unspecified Code(s): E78.5 - Hyperlipidemia, unspecified Status: Acute Assessment and Plan: Will resume statin once she is tolerating p.o. DS: Summary Time Spent with Patient Time attestation: Total time spent providing and/or coordinating discharge services:38 minutes on day of discharge Exam Narrative: Exam Narrative: General: A well-developed, acutely ill-appearing female sitting up in bed. HEENT: Normocephalic, atraumatic. PERRL, EOMI. Sclerae anicteric. Oral mucosa is extremely dry and lips are chapped. Oropharynx clear. Neck: Supple. Respiratory: Lungs are clear to auscultation bilaterally. Cardiovascular: Regular rate and rhythm with S1-S2. Gastrointestinal: Abdomen is soft, nontender, and nondistended with positive bowel sounds. Skin: Warm and dry. No rash or lesions on limited exam. Extremities: No cyanosis, clubbing, or edema. Radial and pedal pulses intact. Neurological: Alert. Crania
[2019-05-09 14:00] VITALS: BP 140/63; PULSE 72; RESP 18; TEMP 36.6; O2SAT 95
== END 2019-05-09 15:50 | disposition home or self-care (01) | DRG 638 ==
LOC: ANHED 13:02 → ANHICU 13:34 → ANH3MEDSUR 05-08 10:26 → ANHICU 05-13 16:23
PROVIDERS: Internal Medicine; Physician Assistant; Admitting Provider Family Medicine; Emergency Provider Emergency Medicine; PCP Family Medicine; Visit Provider Family Medicine
DX: E11.10 Type 2 diabetes mellitus with ketoacidosis without coma (principal); N17.9 Acute kidney failure, unspecified; I10 Essential (primary) hypertension; E78.5 Hyperlipidemia, unspecified; E03.9 Hypothyroidism, unspecified; M79.7 Fibromyalgia; Z90.710 Acquired absence of both cervix and uterus; Z85.43 Personal history of malignant neoplasm of ovary; Z90.721 Acquired absence of ovaries, unilateral; E86.0 Dehydration; E87.8 Other disorders of electrolyte and fluid balance, not elsewhere classified
CPT/HCPCS: 36415; 36600; 70450; 80048; 80053; 81001; 82010; 82375; 82805; 82948; 83036; 83050; 83735; 84100; 84443; 85025; 85027; 85610; 87081; 93005; 96361; 96365; 96375; 97161; 99285; A9270; C9113; J1815; J2405; J3480; J7030; J7050

== ENCOUNTER 2019-10-14 06:59 | Outpatient (CLI) | payer MEDICARE, SELFPAY ==
[2019-10-14 07:18] LABS: Hemoglobin 12.1 g/dL (11.7-13.8)
[2019-10-14 08:39] LABS: Alanine Aminotransferase 29 U/L (14-59); Albumin Level 3.6 g/dL (3.4-5.0); Alkaline Phosphatase 66 U/L (46-116); Anion Gap 6 mmol/L (8-16); Aspartate Amino Transferase 20 U/L (15-37); Bilirubin,Total 0.2 mg/dL (0.00-1.00); Blood Urea Nitrogen 26 mg/dL (7-18); Calcium 9.9 mg/dL (8.5-10.1); Carbon Dioxide 29 mmol/L (21-32); Chloride 108 mmol/L (98-108); Estimated Glomerular Filt Rate > 60; Glucose 98 mg/dL (70-99); Osmolality Calculated 300 mOsm/kg (285-295); Potassium 4.5 mmol/L (3.5-5.1); Sodium 143 mmol/L (136-145); Thyroid Stimulating Hormone 2.53 uIU/mL (0.36-3.74); Total Protein 6.7 g/dL (6.4-8.2)
== END 2019-10-14 07:00 | disposition home or self-care (01) ==
PROVIDERS: PCP Family Medicine; Visit Provider Family Medicine
DX: E04.9 Nontoxic goiter, unspecified (principal); E11.9 Type 2 diabetes mellitus without complications; I10 Essential (primary) hypertension; D50.0 Iron deficiency anemia secondary to blood loss (chronic)
CPT/HCPCS: 36415; 80053; 83036; 84443; 85014; 85018

== ENCOUNTER 2019-12-31 07:04 | Outpatient (CLI) | payer MEDICARE, SELFPAY ==
[2019-12-31 07:28] LABS: Hemoglobin A1C 10.9 % (<5.7)
[2019-12-31 08:44] LABS: Alanine Aminotransferase 21 U/L (14-59); Alkaline Phosphatase 63 U/L (46-116); Anion Gap 5 mmol/L (8-16); Aspartate Amino Transferase 11 U/L (15-37); Bilirubin,Total 0.2 mg/dL (0.00-1.00); Blood Urea Nitrogen 24 mg/dL (7-18); Calcium 8.5 mg/dL (8.5-10.1); Carbon Dioxide 30 mmol/L (21-32); Chloride 108 mmol/L (98-108); Estimated Glomerular Filt Rate > 60; Glucose 52 mg/dL (70-99); Osmolality Calculated 297 mOsm/kg (285-295); Potassium 4.6 mmol/L (3.5-5.1); Sodium 143 mmol/L (136-145); Total Protein 6.9 g/dL (6.4-8.2)
== END 2019-12-31 07:05 | disposition home or self-care (01) ==
LOC: CHSLAB 07:07
PROVIDERS: PCP Family Medicine; Visit Provider Family Medicine
DX: E11.9 Type 2 diabetes mellitus without complications (principal); I10 Essential (primary) hypertension
CPT/HCPCS: 36415; 80053; 83036

== ENCOUNTER 2020-03-19 01:21 | Emergency (ER) | payer MEDICARE, OTHER, SELFPAY ==
[2020-03-19 01:25] VITALS: BP 152/75; PULSE 79; RESP 18; TEMP 36.7; O2SAT 94
[2020-03-19 01:30] LABS: Glucose Point of Care 398 (65-105)
[2020-03-19 01:39] LABS: Basophils Percent Auto 0.4 % (0.2-1.2); Eosinophils Absolute Auto 0.1 K/mm3 (0-0.3); Hematocrit 38.6 % (37.0-47.0); Hemoglobin 12.5 g/dL (12.0-15.0); Immature Granulocyte Absolute 0.01 K/mm3 (0.00-0.031); Immature Granulocyte Percent A 0.1 % (0-0.5); Lymphocytes Percent Auto 24.8 % (18.3-44.2); Mean Corpuscular HGB Conc 32.4 g/dl (32-36); Mean Corpuscular Hemoglobin 31.1 pg (26-34); Mean Platelet Volume 9.7 fl (7.4-10.4); Monocytes Absolute Auto 0.5 K/mm3 (0.1-0.6); Monocytes Percent Auto 6.9 % (2.6-8.5); Neutrophils Absolute Auto 4.5 K/mm3 (1.3-6.7); Neutrophils Percent Auto 65.8 % (45.5-73.1); Platelet Count Result 275 k/mm3 (150-375); Red Blood Count 4.02 M/mm3 (4.2-5.4); Red Cell Distribution Width 13.9 % (11.5-14.5); White Blood Count 6.9 K/mm3 (4.5-10.0)
--- NOTE | 2020-03-19 01:39 | ED.GENADULT ---
HPI - General Adult General Chief complaint: Dizziness Stated complaint: elevated blood sugar Source: patient Mode of arrival: ambulatory Limitations: no limitations History of Present Illness HPI narrative: A 69-year-old female presents to the emergency department tonight with complaints of elevated blood sugars. Patient notes that she has been at home watching a diet as her rater than 600 has been taking her medications diligently. She denies any changes in her medications. Patient notes that the reason she called the ambulance was because she got very dizzy/lightheaded earlier. Related Data Allergies Allergy/AdvReac Type Severity Reaction Status Date / Time banana Allergy Severe SEVERE Verified 03/19/20 01:34 HIVES acetaminophen [From Tylenol] AdvReac Intermediate n/v Verified 03/19/20 01:34 aspirin AdvReac Intermediate NAUSEA/VOMI Verified 03/19/20 01:34 TING fluoxetine [From Prozac] AdvReac Hallucinati Verified 03/19/20 01:34 ng Review of Systems Review of Systems: Narrative: CONSTITUTIONAL: Denies fever, chills, or sweats. EYES: Denies visual changes, redness, or discharge. ENT: Denies rhinorrhea, congestion, sore throat, or otalgia. CARDIOVASCULAR: Denies chest pain, palpitations, or edema. RESPIRATORY: Denies cough or dyspnea. GASTROINTESTINAL: Denies abdominal pain, nausea, vomiting, or diarrhea. GENITOURINARY: Denies dysuria or hematuria. SKIN: Denies rash or itching. MUSCULOSKELETAL: Denies back pain, joint pain, or myalgia. NEUROLOGIC: Denies headache, numbness, dizziness, or weakness. PSYCHIATRIC: Denies anxiety or depression. [facility] Past Medical History Medical History Anemia Diabetes mellitus with hyperglycemia Diabetic peripheral neuropathy Fibromyalgia Hyperlipidemia Hypertension Hypothyroid Ovarian cancer At the age of 33, status post hysterectomy. Patient tells me that half an ovary was left during surgery. She required no further treatment. Shingles Type 2 diabetes mellitus Hemoglobin A1c was 11.2% in March 2019. C-peptide 0.63. Surgical History Surgical History H/O: hysterectomy At age 33 History of tubal ligation Hx of tonsillectomy Family History Family History Grandparent Family history of premature coronary heart disease, Onset Age: 64 Father Family history of respiratory disorder, Onset Age: 87 Cerebrovascular accident Family history of Alzheimer's disease Patient's father is Family history of cardiovascular disease Mother Family history of primary malignant neoplasm of liver, Onset Age: 64 Family history of malignant neoplasm of breast in first degree relative Patient's mother is , Onset Age: 64 Family history of malignant neoplasm Social History Social History Social History: The patient is . She lives in her own home in [place], [place]. She has a cat that lives at home with her. She does not work. She has 2 daughters, and designates her daughter Jose Posey, as her surrogate decision maker. She wishes to be a do not resuscitate. She is a lifelong nonsmoker. She drinks perhaps 4 alcoholic beverages a week. No drug use. Smoking status: Never smoker Second hand tobacco smoke exposure: No Alcohol intake: current Drinks per week: 2 Substance use: never Substance use type: does not use Gender identity (if verbalized by the patient): Female Spiritual care concerns: No Agree to blood products: Yes Exam Narrative: Exam Narrative: GENERAL: Well-appearing, well-nourished, and in no acute distress. HEAD: Normocephalic, atraumatic. EYES: PERRLA and EOMI. ENT: Nares clear, no rhinorrhea or epistaxis. Mucous membranes moist. Oropharynx without tonsillar hypertrophy exudate or other
[2020-03-19 01:52] LABS: Alanine Aminotransferase 26 U/L (4-35); Albumin Level 4.1 g/dL (3.5-5.1); Alkaline Phosphatase 87 U/L (38-126); Anion Gap 8 mmol/L (8-16); Aspartate Amino Transferase 24 U/L (14-36); Bilirubin,Total 0.4 mg/dL (0.2-1.3); Blood Urea Nitrogen 31 mg/dL (7-17); Calcium 10.6 mg/dL (8.4-10.2); Carbon Dioxide 23 mmol/L (22-30); Chloride 102 mmol/L (98-107); Estimated CRCL calculation 61 ml/min; Estimated Glomerular Filt Rate > 60; Glucose 406 mg/dL (65-105); Magnesium 1.9 mg/dL (1.6-2.3); Phosphorus 2.9 mg/dL (2.5-4.5); Potassium 4.1 mmol/L (3.4-5.0); Sodium 133 mmol/L (137-145)
[2020-03-19 02:17] LABS: Beta-Hydroxybutyrate/Acetoacetate 1.57 mmol/L (0.02-0.27)
[2020-03-19] MEDS: INSULIN HUMAN REGULAR (*BKC) 100 UNITS/ML 12 UNITS IV PUSH (02:19)
[2020-03-19] MEDS: LACTATED RINGERS 1,000 ML 999 ML IV CONT (02:36)
[2020-03-19 02:38] VITALS: BP 123/61; PULSE 81; RESP 18; O2SAT 96
[2020-03-19 03:18] VITALS: BP 100/48; PULSE 75; RESP 18; O2SAT 94
[2020-03-19 03:43] VITALS: BP 104/53; PULSE 72; RESP 18; O2SAT 95
[2020-03-19 03:50] LABS: Glucose Point of Care 168 (65-105)
[2020-03-19] MEDS: LACTATED RINGERS 1,000 ML 999 ML (03:58)
[2020-03-19 04:04] VITALS: BP 116/66; PULSE 71; RESP 20; O2SAT 96
[2020-03-19 04:38] LABS: Add Urine Microscopic? YES; Appearance Urine Clear (Clear); Bilirubin Urine Negative (Negative); Blood Urine Negative (Negative); Color Urine Straw (Yellow); Glucose Urine UA 3+ mg/dL (Negative); Ketones Urine 1+ mg/dL (Negative); Leukocyte Esterase Ur Negative LEU/UL (Negative); Mucus Urine Rare /lpf; Nitrate Urine Negative (Negative); Protein Urine Negative (Negative); RBC Urine 0-2 /hpf (0-2); Squamous Epithelial Cell Urine Occasional /hpf (Few); Urobilinogen Urine Negative mg/dL (<2.0)
[2020-03-19 04:46] VITALS: BP 101/44; PULSE 76; RESP 18; O2SAT 96
[2020-03-19 04:55] LABS: Specific Grav Ur 1.032 (1.001-1.035)
[2020-03-19 04:57] LABS: Glucose Point of Care 129 (65-105)
== END 2020-03-19 05:23 | disposition home or self-care (01) ==
PROVIDERS: Emergency Provider Emergency Medicine; Family Provider Family Medicine; PCP Family Medicine
DX: E11.65 Type 2 diabetes mellitus with hyperglycemia (principal); R55 Syncope and collapse; R42 Dizziness and giddiness; E86.0 Dehydration; E11.42 Type 2 diabetes mellitus with diabetic polyneuropathy; M79.7 Fibromyalgia; E78.5 Hyperlipidemia, unspecified; I10 Essential (primary) hypertension; E03.9 Hypothyroidism, unspecified; Z85.43 Personal history of malignant neoplasm of ovary; Z79.4 Long term (current) use of insulin
CPT/HCPCS: 36415; 80053; 81001; 82010; 82948; 83735; 84100; 85025; 96361; 96374; 99284; J1815; J7120

== ENCOUNTER 2020-04-27 08:05 | Outpatient (CLI) | payer MEDICARE, SELFPAY ==
[2020-04-27 08:29] LABS: Basophils Absolute Auto 0.03 K/mm3 (0.00-0.10); Basophils Percent Auto 0.5 % (0.0-1.0); Eosinophils Absolute Auto 0.33 K/mm3 (0.02-0.50); Hematocrit 37.7 % (35.0-42.0); Hemoglobin 12.2 g/dL (11.7-13.8); Immature Granulocyte Absolute 0.02 K/mm3 (0.00-0.00); Immature Granulocyte Percent A 0.4 % (0.0-0.0); Lymphocytes Absolute Auto 1.91 K/mm3 (1.10-4.50); Lymphocytes Percent Auto 34.9 % (18.0-42.0); Mean Corpuscular HGB Conc 32.4 g/dL (32.0-36.0); Mean Corpuscular Hemoglobin 31.6 pg (27.0-31.0); Mean Corpuscular Volume 97.7 fL (78.0-102.0); Mean Platelet Volume 9.8 fl (9.2-11.8); Monocytes Absolute Auto 0.53 K/mm3 (0.10-0.90); Monocytes Percent Auto 9.7 % (2.0-11.0); Neutrophils Absolute Auto 2.7 K/mm3 (1.7-7.2); Neutrophils Percent Auto 48.5 % (50.0-70.0); Platelet Count Result 262 K/mm3 (150-420); Red Blood Count 3.86 M/mm3 (4.20-5.40); Red Cell Distribution Width 13.5 % (11.6-14.4); White Blood Count 5.5 K/mm3 (4.8-10.8)
[2020-04-27 08:34] LABS: MALB Creatinine Ratio 8.4 mg/g (0-30); Microalbumin Urine Random 13.6 mg/L
[2020-04-27 08:36] LABS: Hemoglobin A1C 12.6 % (<5.7)
[2020-04-27 09:17] LABS: Alanine Aminotransferase 22 U/L (14-59); Albumin Level 3.4 g/dL (3.4-5.0); Alkaline Phosphatase 74 U/L (46-116); Anion Gap 6 mmol/L (8-16); Aspartate Amino Transferase 12 U/L (15-37); Bilirubin,Total 0.3 mg/dL (0.00-1.00); Blood Urea Nitrogen 18 mg/dL (7-18); Calcium 9.8 mg/dL (8.5-10.1); Carbon Dioxide 31 mmol/L (21-32); Chloride 106 mmol/L (98-108); Cholesterol 255 mg/dL (0-200); Estimated Glomerular Filt Rate > 60; Free T3 1.62 pg/mL (2.18-3.98); Free T4 Free Thyroxine 0.64 ng/dL (0.76-1.46); Glucose 109 mg/dL (70-99); HDL Direct 72 mg/dL (40-60); LDL Cholesterol Calculated 151 mg/dL (<130); Osmolality Calculated 298 mOsm/kg (285-295); Potassium 4.4 mmol/L (3.5-5.1); Sodium 143 mmol/L (136-145); Thyroid Stimulating Hormone 3.77 uIU/mL (0.36-3.74); Total Protein 6.1 g/dL (6.4-8.2); Triglycerides 158 mg/dL (0-150)
== END 2020-04-27 08:06 | disposition home or self-care (01) ==
PROVIDERS: PCP Family Medicine; Visit Provider Family Medicine
DX: E11.9 Type 2 diabetes mellitus without complications (principal); Z79.4 Long term (current) use of insulin; E03.9 Hypothyroidism, unspecified
CPT/HCPCS: 36415; 80053; 80061; 82043; 83036; 84439; 84443; 84481; 85025

== ENCOUNTER 2020-06-06 08:57 | Inpatient (IN) | payer MEDICARE, OTHER, SELFPAY ==
[2020-06-06] VITALS (8 sets, daily range): BP systolic 119–163; BP diastolic 77–94; PULSE 60–76; RESP 12–18; TEMP 36.5–36.8; O2SAT 96–100
--- NOTE | ~2020-06-06 | CT_ITS ---
EXAMINATION: CT brain wo [facility] EXAM DATE: 06/06/2020 11:15 INDICATION: Posterior head injury, multiple falls. TECHNIQUE: Spiral CT of the head was performed without contrast. Axial, coronal and sagittal images were reviewed. The dose-length product (DLP) for this examination was 605.33 mGy-cm. The exposure w as tailored according to patient size, and iterative reconstruction (ASIR) was used as additional dos e reduction technique. Comparison is made to prior examination from 05/05/2019. FINDINGS: There is no acute intraparenchymal hemorrhage. No evidence of intraparenchymal brain mass lesion. No evidence of acute infarction. There is no mass effect or midline shift. The ventricles are normal in size. There are no extra-axial collections. There are no acute calvarial fractures. T he orbits are unremarkable. Soft tissue is unremarkable. The visualized sinuses and mastoid air david ls are well aerated. IMPRESSION: 1. No acute intracranial findings. Reviewed, dictated and finalized at location A.
--- NOTE | ~2020-06-06 | XR_ITS ---
EXAMINATION: XR chest 1V portable EXAM DATE: 06/06/2020 10:02 INDICATION: Weakness HX HTN And Diabetes. TECHNIQUE: Portable AP frontal chest x-ray was obtained. Comparison is made to prior examination from 03/30/2019. FINDINGS: The lungs are clear. There are no pleural effusions. Cardiac silhouette is prominent but magnified on this AP technique. There is tortuosity of the aorta. There is no pneumothorax suspect ed. Mild thoracic scoliosis. Some calcified mediastinal lymph nodes from prior granulomatous process . IMPRESSION: No acute cardiopulmonary findings. Reviewed, dictated and finalized at location A.
--- NOTE | ~2020-06-06 | XR_ITS ---
EXAMINATION: XR ribs LT 2V EXAM DATE: 06/06/2020 10:33 INDICATION: Fall, left rib pain laterally. TECHNIQUE: Frontal projection of the upper left ribs, frontal projection of the lower left ribs, obli que projection of the left ribs for interpretation. Correlation is made to chest x-ray 06/06. FINDINGS: There are no displaced acute left rib fractures identified. There is no soft tissue abnor mality seen. There are bony degenerative changes. IMPRESSION: No displaced left rib fractures. Reviewed, dictated and finalized at location A.
[2020-06-06 09:09] LABS: Glucose Point of Care > 500 (65-105)
--- NOTE | 2020-06-06 09:16 | ECG_ITS ---
Measurements Intervals [place] Rate: 64 P: 35 IN: 160 QRS: 14 QRSD: 92 T: 19 QT: 381 QTc: 394 Interpretive Statements SINUS RHYTHM VENTRICULAR PREMATURE COMPLEX BASELINE WANDER- AVR, V2-V5 BORDERLINE ECG Electronically Signed On 06-06-2020 9:21:30 CDT by Unruly Panchal D.O.
[2020-06-06 09:28] LABS: Alveolar/Arterial O2 Gradient 18.8 mmHg; Base Excess ABG -2.2 mEq/l (+/-2.0); Carboxyhemoglobin 0.3 % THb (0-2.0); Fractional Inspired Oxygen 21 %; HCO3 ABG 22.5 mEq/l (22.0-26.0); Methemoglobin ABG 0.3 %THb (0-1.5); Oxygen Content ABG 16.8 %vol (16.0-22.0); Oxygen Saturation ABG 96.4 % (95.0-100.0); Oxyhemoglobin 95.1 % THb (90.0-100.0); PCO2 ABG 38.3 mmHg (35.0-45.0); PO2 ABG 85.1 mmHg (80.0-100.0); PO2 FiO2 Ratio Arterial Blood 4.05 %; Reduced Hemoglobin 4.3 %THb (0-5.0); Total Hemoglobin 12.5 g/dL (12.0-18.0); pH ABG 7.387 (7.350-7.450)
[2020-06-06 09:29] LABS: Device ROOM AIR; Modified Allen's Test Pass; Site Drawn LEFT RADIAL
[2020-06-06] MEDS: SODIUM CHLORIDE 0.9% IV 1,000 ML 999 ML IV CONT (09:38)
[2020-06-06 10:05] LABS: Basophils Percent Auto 0.3 % (0.2-1.2); Eosinophils Absolute Auto 0.3 K/mm3 (0-0.3); Eosinophils Percent Auto 4.5 % (0-4.4); Hematocrit 37.5 % (37.0-47.0); Hemoglobin 12.2 g/dL (12.0-15.0); Immature Granulocyte Absolute 0.02 K/mm3 (0.00-0.031); Immature Granulocyte Percent A 0.3 % (0-0.5); Lymphocytes Absolute Auto 1.48 K/mm3 (0.9-3.2); Lymphocytes Percent Auto 24.4 % (18.3-44.2); Mean Corpuscular HGB Conc 32.5 g/dl (32-36); Mean Corpuscular Hemoglobin 31.6 pg (26-34); Mean Corpuscular Volume 97.2 fl (80-100); Mean Platelet Volume 9.3 fl (7.4-10.4); Monocytes Absolute Auto 0.7 K/mm3 (0.1-0.6); Monocytes Percent Auto 10.7 % (2.6-8.5); Neutrophils Absolute Auto 3.6 K/mm3 (1.3-6.7); Neutrophils Percent Auto 59.8 % (45.5-73.1); Platelet Count Result 289 k/mm3 (150-375); Red Blood Count 3.86 M/mm3 (4.2-5.4); Red Cell Distribution Width 13.2 % (11.5-14.5); White Blood Count 6.1 K/mm3 (4.5-10.0)
[2020-06-06 10:09] LABS: Add Urine Microscopic? YES; Appearance Urine Clear (Clear); Bilirubin Urine Negative (Negative); Blood Urine Negative (Negative); Color Urine Straw (Yellow); Glucose Urine UA 3+ mg/dL (Negative); Ketones Urine Negative (Negative); Leukocyte Esterase Ur Negative LEU/UL (Negative); Nitrate Urine Negative (Negative); Protein Urine Negative (Negative); Specific Grav Ur 1.025 (1.001-1.035); Squamous Epithelial Cell Urine Rare /hpf (Few); Urobilinogen Urine Negative mg/dL (<2.0); WBC Urine 0-3 /hpf
[2020-06-06 10:18] LABS: Alanine Aminotransferase 14 U/L (4-35); Albumin Level 3.7 g/dL (3.5-5.1); Alkaline Phosphatase 84 U/L (38-126); Anion Gap 5 mmol/L (8-16); Aspartate Amino Transferase 19 U/L (14-36); Bilirubin,Total 0.2 mg/dL (0.2-1.3); Blood Urea Nitrogen 28 mg/dL (7-17); Calcium 9.6 mg/dL (8.4-10.2); Carbon Dioxide 26 mmol/L (22-30); Chloride 102 mmol/L (98-107); Estimated CRCL calculation 71 ml/min; Estimated Glomerular Filt Rate > 60; Glucose 391 mg/dL (65-105); Phosphorus 3.2 mg/dL (2.5-4.5); Potassium 4.3 mmol/L (3.4-5.0); Sodium 133 mmol/L (137-145)
--- NOTE | 2020-06-06 10:24 | ED.GENADULT ---
HPI - General Adult General Chief complaint: Recheck/Abnormal Lab/Rx Stated complaint: high blood sugar Time Seen by Provider: 06/06/20 10:00 Source: patient Mode of arrival: EMS Limitations: no limitations History of Present Illness HPI narrative: This is a 70 year old female with history DM, peripheral neuropathy , RLS who presents via EMS for evaluation frequent falls and an elevated blood sugar. Patient reports she is have restless leg syndrome issues. She ran out of her medication over 1 week ago. She states last night she fell 10 times because her legs keep giving out due to her restless leg. She is unable to stay still and she is unable to sleep. She does reports hitting left side of her head last night but she denies LOC. She reports having poorly controlled diabetes, and her BS runs in 300- 400s . She takes lantus 40 units BID and novolog. She also takes metformin. She has not taken any of her medications this morning. She denies nausea, vomiting, chest pain, cough, abdominal pain or sob. She does reports mild left rib pain after fall. Related Data Home Medications Medication Instructions Recorded Confirmed gabapentin 300 mg PO HS 06/06/20 06/06/20 insulin aspart U-100 [Novolog See Rx Instructions .ROUTE .COMPLEX 06/06/20 06/06/20 Flexpen U-100 Insulin] pramipexole 3 mg PO HS 06/06/20 06/06/20 Allergies Allergy/AdvReac Type Severity Reaction Status Date / Time banana Allergy Severe SEVERE Verified 06/06/20 15:07 HIVES acetaminophen [From Tylenol] AdvReac Intermediate n/v Verified 06/06/20 15:07 aspirin AdvReac Intermediate NAUSEA/VOMI Verified 06/06/20 15:07 TING fluoxetine [From Prozac] AdvReac Hallucinati Verified 06/06/20 15:07 ng Review of Systems Review of Systems: All systems reviewed & are unremarkable except as noted in HPI and below Constitutional: Constitutional: Denies chills and Denies fever(s) Cardiovascular: Cardiovascular: Denies chest pain Respiratory: Respiratory: Denies cough and Denies dyspnea Gastrointestinal: Gastrointestinal: Denies abdominal pain, Denies diarrhea, Denies nausea and Denies vomiting Musculoskeletal: Musculoskeletal: Reports muscle cramps Comments: restless leg Neurologic: Reports headache(s) [facility] Past Medical History Medical History (Updated 06/06/20 @ 14:13 by Tutu Heller MD) Anemia Diabetes mellitus with hyperglycemia Diabetic peripheral neuropathy Fibromyalgia Hyperlipidemia Hypertension Hypothyroid Ovarian cancer At the age of 33, status post hysterectomy. Patient states that half an ovary was left during surgery. She required no further treatment. Shingles Thyroid disorder Type 2 diabetes mellitus Hemoglobin A1c was 11.2% in March 2019. C-peptide 0.63. Surgical History Surgical History H/O: hysterectomy At age 33 History of tubal ligation Hx of tonsillectomy Family History Family History Grandparent Family history of premature coronary heart disease, Onset Age: 64 Father Family history of respiratory disorder, Onset Age: 87 Cerebrovascular accident Family history of Alzheimer's disease Patient's father is Family history of cardiovascular disease Mother Family history of primary malignant neoplasm of liver, Onset Age: 64 Family history of malignant neoplasm of breast in first degree relative Patient's mother is , Onset Age: 64 Family history of malignant neoplasm Social History Social History Social History: The patient is . She lives in her own home in [place], [place]. She has a cat that lives at home with her. She does not work. She has 2 daughters, and designates her daughter Jose Posey, as her surrogate decision maker. She wishes to be a do not resuscitate. She is a lifelong
[2020-06-06 10:25] LABS: Beta-Hydroxybutyrate/Acetoacetate 0.09 mmol/L (0.02-0.27)
[2020-06-06] MEDS: GABAPENTIN 300 MG CAPSULE PO (10:40)
[2020-06-06] MEDS: INSULIN GLARGINE (*BKC) 100 UNITS/ML 40 UNITS SUB-Q (10:40)
[2020-06-06] MEDS: metFORMIN HCL 500 MG TABLET PO (10:40)
--- NOTE | 2020-06-06 10:45 | PC.NURSE ---
called Milena gray, added on EtOH [id number]
[2020-06-06 11:04] LABS: Ethanol < 10 mg/dL (<10)
--- NOTE | 2020-06-06 14:01 | PM.IMHP ---
H&P: HPI History of Present Illness Date/Time: 06/06/20 14:01 Chief Complaint: Uncontrolled restless legs with falling Narrative: 70-year-old female was diagnosed with type 2 diabetes about 1 year ago. She has had difficulty with uncontrolled blood sugars frequently over 500 on her meter. She has had lows as low as 50. She does not follow any diet. She is relatively sedentary. She currently takes metformin 500 mg 2 in the morning and 1 in the evening as well as Lantus 42 units twice daily and NovoLog 7 units plus sliding scale prior to each meal. However she usually only checks her sugar before breakfast. One week ago she ran out of her Mirapex. Her restless legs have been severe whenever she is sits down or lies down. While up and about they are not bad. She has not been sleeping well. Last night she fell later 10 times. She did not injure herself. Her legs were cramping up such that she was not able to walk. Because of this she came to the emergency room on the morning of June 07. She denied weakness or numbness. She denied arm weakness speech problems vision problems or balance problems. She denied headache or syncope. She she denied chest pain shortness of breath. She denied loss of appetite or change in bowel or bladder function. She denied abnormal bleeding. Review of Systems Review of Systems: All systems reviewed & are unremarkable except as noted in HPI and below PMFSH Past Medical History Medical History (Updated 06/06/20 @ 14:13 by Tutu Heller MD) Anemia Diabetes mellitus with hyperglycemia Diabetic peripheral neuropathy Fibromyalgia Hyperlipidemia Hypertension Hypothyroid Ovarian cancer At the age of 33, status post hysterectomy. Patient states that half an ovary was left during surgery. She required no further treatment. Shingles Thyroid disorder Type 2 diabetes mellitus Hemoglobin A1c was 11.2% in March 2019. C-peptide 0.63. Surgical History Surgical History H/O: hysterectomy At age 33 History of tubal ligation Hx of tonsillectomy Family History Family History Grandparent Family history of premature coronary heart disease, Onset Age: 64 Father Family history of respiratory disorder, Onset Age: 87 Cerebrovascular accident Family history of Alzheimer's disease Patient's father is Family history of cardiovascular disease Mother Family history of primary malignant neoplasm of liver, Onset Age: 64 Family history of malignant neoplasm of breast in first degree relative Patient's mother is , Onset Age: 64 Family history of malignant neoplasm Social History Social History Social History: The patient is . She lives in her own home in [place], [place]. She has a cat that lives at home with her. She does not work. She has 2 daughters, and designates her daughter Jose Posey, as her surrogate decision maker. She wishes to be a do not resuscitate. She is a lifelong nonsmoker. She drinks perhaps 4 alcoholic beverages a week. No drug use. Smoking status: Never smoker Second hand tobacco smoke exposure: Yes Alcohol intake: current Drinks per week: 10 Substance use: current Substance use type: marijuana Gender identity (if verbalized by the patient): Female Spiritual care concerns: No Agree to blood products: Yes Meds Home Medications and Allergies Home Medications Medication Instructions Recorded Confirmed Type blood-glucose meter [Blood Glucose #1 each 04/05/19 01/17/20 Rx Monitoring] metformin 500 mg tablet,extended 500 mg PO BID #180 tablet 10/07/19 01/17/20 Rx release 24 hr lancets 33 gauge #100 each 11/15/19 01/17/20 Rx flash glucose scanning reader #6 each 11/22/19 01/17/20 Rx flash glucose sensor #6 each 11/22/19
--- NOTE | 2020-06-06 14:15 | ADMGEN ---
This patient, Karly Leslie, was admitted to Medical Room 247-. Patient/family oriented to hospital policies and general routines including ID bracelet, bed and alarms, visiting hours, pain management, procedures, bathroom and other care routines, personal items, smoking policy, room service/diet, and visiting hours. Information on how to activate the Rapid Response Team has been discussed. Patient/Family are encouraged to report perceived risks to care and to ask questions if they do not understand what they are told or what they should do.
[2020-06-06] MEDS: SODIUM CHLORIDE 0.9% IV 1,000 ML 125 ML IV CONT ×2 (14:22→21:28)
[2020-06-06 14:31] LABS: Glucose Point of Care 86 (65-105)
[2020-06-06] MEDS: INSULIN ASPART (*BKC) 100 UNITS/ML SUB-Q (17:47)
[2020-06-06 18:22] LABS: Glucose Point of Care 163 (65-105)
[2020-06-06] MEDS: PRAMIPEXOLE 1 MG TABLET 3 MG PO (20:06)
[2020-06-06 20:51] LABS: Glucose Point of Care 210 (65-105)
[2020-06-06] MEDS: traMADol HCL (*CRX) 25 MG TABLET PO (21:28)
[2020-06-07 05:29] LABS: Basophils Percent Auto 0.3 % (0.2-1.2); Eosinophils Absolute Auto 0.3 K/mm3 (0-0.3); Eosinophils Percent Auto 5.1 % (0-4.4); Hematocrit 36.3 % (37.0-47.0); Hemoglobin 11.5 g/dL (12.0-15.0); Immature Granulocyte Absolute 0.02 K/mm3 (0.00-0.031); Immature Granulocyte Percent A 0.3 % (0-0.5); Lymphocytes Absolute Auto 1.47 K/mm3 (0.9-3.2); Mean Corpuscular HGB Conc 31.7 g/dl (32-36); Mean Corpuscular Volume 97.8 fl (80-100); Mean Platelet Volume 9.4 fl (7.4-10.4); Monocytes Absolute Auto 0.5 K/mm3 (0.1-0.6); Monocytes Percent Auto 8.1 % (2.6-8.5); Neutrophils Absolute Auto 3.6 K/mm3 (1.3-6.7); Neutrophils Percent Auto 61.2 % (45.5-73.1); Platelet Count Result 266 k/mm3 (150-375); Red Blood Count 3.71 M/mm3 (4.2-5.4); Red Cell Distribution Width 13.5 % (11.5-14.5); White Blood Count 5.9 K/mm3 (4.5-10.0)
[2020-06-07 05:35] LABS: Hemoglobin A1C 13.4 % (<5.7)
[2020-06-07 05:58] VITALS: BP 137/75; PULSE 63; RESP 21; TEMP 36.2; O2SAT 100
[2020-06-07] MEDS: SODIUM CHLORIDE 0.9% IV 1,000 ML 125 ML IV CONT (06:10)
[2020-06-07 06:14] LABS: Alanine Aminotransferase 11 U/L (4-35); Albumin Level 3.1 g/dL (3.5-5.1); Alkaline Phosphatase 67 U/L (38-126); Anion Gap 0 mmol/L (8-16); Aspartate Amino Transferase 19 U/L (14-36); Bilirubin,Total 0.2 mg/dL (0.2-1.3); Blood Urea Nitrogen 15 mg/dL (7-17); Calcium 9.1 mg/dL (8.4-10.2); Carbon Dioxide 28 mmol/L (22-30); Chloride 109 mmol/L (98-107); Creatine Kinase 37 U/L (30-135); Estimated CRCL calculation 84 ml/min; Estimated Glomerular Filt Rate > 60; Glucose 114 mg/dL (65-105); Sodium 137 mmol/L (137-145)
[2020-06-07 08:11] LABS: Glucose Point of Care 126 (65-105)
[2020-06-07] MEDS: INSULIN ASPART (*BKC) 100 UNITS/ML SUB-Q ×3 (08:46→16:47)
[2020-06-07] MEDS: INSULIN GLARGINE (*BKC) 100 UNITS/ML 20 UNITS SUB-Q (08:47)
--- NOTE | 2020-06-07 10:12 | PM.IMPN ---
Progress Note: A&P Additional Plan 70-year-old female was diagnosed with type 2 diabetes about 1 year ago. She has had difficulty with uncontrolled blood sugars frequently over 500 on her meter. She has had lows as low as 50. She does not follow any diet. She is relatively sedentary. She currently takes metformin 500 mg 2 in the morning and 1 in the evening as well as Lantus 42 units twice daily and NovoLog 7 units plus sliding scale prior to each meal. However she usually only checks her sugar before breakfast. One week ago she ran out of her Mirapex. Her restless legs have been severe whenever she is sits down or lies down. While up and about they are not bad. She has not been sleeping well. Last night she fell later 10 times. She did not injure herself. Her legs were cramping up such that she was not able to walk. Because of this she came to the emergency room on the morning of June 07. She denied weakness or numbness. She denied arm weakness speech problems vision problems or balance problems. She denied headache or syncope. She she denied chest pain shortness of breath. She denied loss of appetite or change in bowel or bladder function. She denied abnormal bleeding. # Recurrent falls: with poorly controlled diabetes and diabetic neuropathy and restlss leg syndrome. impoved. PT/OT # Uncontrolled diabtes: iv saline started for hydration. will stop this today. on lantus 20 untis bid, premeal insulin 4 units with meals with sliding scale. hba1c at 13. poorly controlled. # Diabetic neuropathy: # hypothyroidism: levothyroxine. # Restless leg syndrome: pramipexole. out of the meds since a week now. she states [facility] is going to get her the meds tomorrow. # HTN: not on any meds at home. # Anxiety, dperesion # Fibromyalgia # hyperlipidemia # non compliance # DVT proph: lovenox # Disposition: PT/OT eval. home health recs by OT. await PT. Subjective Date/time seen: 06/07/20 10:12 she is feeling much better today. her blood sugars are better too. her restless leg syndrome is worse when she does not take pramipexole and she has been out fo this for a week or so. Review of Systems Review of Systems: Narrative: - CONSTITUTIONAL: Denies weight loss, fever and chills. - HEENT: Denies changes in vision and hearing - RESPIRATORY: Denies SOB and cough. - CV: Denies palpitations and CP. - GI: Denies abdominal pain, nausea, vomiting and diarrhea. - : Denies dysuria and urinary frequency. - MSK: Denies myalgia and joint pain. - SKIN: Denies rash and pruritus. - NEUROLOGICAL: Denies headache and syncope. - PSYCHIATRIC: Denies recent changes in mood. Denies anxiety and depression. All systems reviewed & are unremarkable except as noted in HPI and below Exam Narrative: Exam Narrative: HEENT: EOMI, PERRL, sclerae nonicteric, pharyngeal mucosa pink and intact NECK: No JVD, adenopathy, or thyromegaly CHEST: Clear to auscultation. Normal effort. HEART: NL S1/S2, regular, no murmur ABDOMEN: BS+, soft, nontender, no mass, no bruits EXTREMITIES: No cyanosis, edema, or clubbing. Dorsalis pedis and radial pulses intact bilaterally NEUROLOGIC: CN intact and symmetric to inspection. Deep tender reflexes intact in the biceps triceps and knees, absent at the ankles. MUSCULOSKELETAL: Tone and strength symmetric. While sleeping her legs are quite calm. When awakened her legs begin moving. PSYCH: Alert. Oriented to person, place, and time. Objective Data Vital Signs Vital Signs: Vital Signs - 24 hr 06/06/20 10:24 06/06/20 10:25 06/06/20 10:30 Temperature Pulse Rate 72 76 70 Respiratory Rate 18 Blood Pressure 156/94 H 163/92 H 163/92 H Pulse Oximetry 97 06/06/20 11:26 06/06/20 21:35 06/06/20 22:00 Temperature 98.2 F Pulse Rate 69 66 Respiratory Rate 18 18 Blood Pressure 130/82 119/77 Pulse Oximetry 100 97 96 06/07/20 05:58 Temperature 97.1 F L Pulse Rate 63 Respiratory Rate 21 H Blood Press
[2020-06-07] MEDS: IBUPROFEN 400 MG TABLET PO (10:13)
[2020-06-07 10:39] LABS: Iron 62 ug/dL (37-170)
[2020-06-07 10:48] LABS: Percent Iron Saturation 29 % (20-50)
[2020-06-07] MEDS: ENOXAPARIN 40 MG/0.4 ML SYRINGE SUB-Q (10:49)
[2020-06-07 12:01] LABS: Folic Acid 7.7 ng/mL (2.76->20)
[2020-06-07 12:12] LABS: Glucose Point of Care 187 (65-105)
[2020-06-07 14:00] VITALS: BP 145/73; PULSE 63; RESP 16; TEMP 36; O2SAT 100
[2020-06-07 16:48] LABS: Glucose Point of Care 180 (65-105)
[2020-06-07 20:00] VITALS: PULSE 60; RESP 21; O2SAT 100
[2020-06-07] MEDS: PRAMIPEXOLE 1 MG TABLET 3 MG PO (20:43)
[2020-06-07 20:57] LABS: Glucose Point of Care 189 (65-105)
[2020-06-07 22:00] VITALS: BP 149/74; PULSE 60; RESP 21; TEMP 36.1; O2SAT 100
[2020-06-08 05:42] LABS: Basophils Percent Auto 0.5 % (0.2-1.2); Eosinophils Absolute Auto 0.2 K/mm3 (0-0.3); Eosinophils Percent Auto 3.9 % (0-4.4); Hematocrit 38.4 % (37.0-47.0); Hemoglobin 12.4 g/dL (12.0-15.0); Immature Granulocyte Absolute 0.02 K/mm3 (0.00-0.031); Immature Granulocyte Percent A 0.3 % (0-0.5); Lymphocytes Absolute Auto 1.53 K/mm3 (0.9-3.2); Lymphocytes Percent Auto 26.2 % (18.3-44.2); Mean Corpuscular HGB Conc 32.3 g/dl (32-36); Mean Corpuscular Hemoglobin 30.9 pg (26-34); Mean Corpuscular Volume 95.8 fl (80-100); Mean Platelet Volume 9.6 fl (7.4-10.4); Monocytes Absolute Auto 0.5 K/mm3 (0.1-0.6); Monocytes Percent Auto 9.1 % (2.6-8.5); Neutrophils Absolute Auto 3.5 K/mm3 (1.3-6.7); Platelet Count Result 283 k/mm3 (150-375); Red Blood Count 4.01 M/mm3 (4.2-5.4); Red Cell Distribution Width 13.2 % (11.5-14.5); White Blood Count 5.8 K/mm3 (4.5-10.0)
[2020-06-08 06:00] VITALS: BP 148/86; PULSE 62; RESP 20; TEMP 36.3; O2SAT 98
[2020-06-08 06:03] LABS: Anion Gap 1 mmol/L (8-16); Blood Urea Nitrogen 10 mg/dL (7-17); Calcium 9.5 mg/dL (8.4-10.2); Carbon Dioxide 27 mmol/L (22-30); Chloride 108 mmol/L (98-107); Estimated CRCL calculation 84 ml/min; Estimated Glomerular Filt Rate > 60; Glucose 150 mg/dL (65-105); Potassium 3.8 mmol/L (3.4-5.0); Sodium 136 mmol/L (137-145)
[2020-06-08 08:19] LABS: Glucose Point of Care 190 (65-105)
[2020-06-08] MEDS: ENOXAPARIN 40 MG/0.4 ML SYRINGE SUB-Q (08:22)
[2020-06-08] MEDS: INSULIN ASPART (*BKC) 100 UNITS/ML SUB-Q (08:24)
[2020-06-08] MEDS: INSULIN GLARGINE (*BKC) 100 UNITS/ML 20 UNITS SUB-Q (08:24)
--- NOTE | 2020-06-08 10:08 | PM.DS ---
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 She has had difficulty with uncontrolled blood sugars frequently over 500 on her meter. She has had lows as low as 50. She does not follow any diet. She is relatively sedentary. She currently takes metformin 500 mg 2 in the morning and 1 in the evening as well as Lantus 42 units twice daily and NovoLog 7 units plus sliding scale prior to each meal. However she usually only checks her sugar before breakfast. One week ago she ran out of her Mirapex. Her restless legs have been severe whenever she is sits down or lies down. While up and about they are not bad. She has not been sleeping well. Last night she fell later 10 times. She did not injure herself. Her legs were cramping up such that she was not able to walk. Because of this she came to the emergency room on the morning of June 07. She denied weakness or numbness. She denied arm weakness speech problems vision problems or balance problems. She denied headache or syncope. She she denied chest pain shortness of breath. She denied loss of appetite or change in bowel or bladder function. She denied abnormal bleeding. # Recurrent falls: with poorly controlled diabetes and diabetic neuropathy and restlss leg syndrome. impoved. PT/OT suggested home health, which will be arranged at discharge. # Uncontrolled diabtes: iv saline started for hydration. subsequently stopped. negative for DKA. on lantus 20 untis daily, premeal insulin 4 units with meals with sliding scale. hba1c at 13. poorly controlled. blood sguars were runnig at goal with his dosing which is less than what she normally takes at home. this will need to be adjsuted. may be her diet is not compliant with requiring so much of insulin to keep her at goal. diet was discussed during the hospital stay. she will be sent with recommendatio of 30 units lantus every monrning 7 units +ssi of novolog with each meal, as compared to only at bedtime what she used to do. # Diabetic neuropathy:on gabapentin at bedtime. # hypothyroidism: levothyroxine. # Restless leg syndrome: pramipexole. out of the meds since a week now. she states [facility] is going to get her the med. will send a script to get her filled in local pharmacy. also on # HTN: not on any meds at home. # Anxiety, dperesion # Fibromyalgia # hyperlipidemia # non compliance # DVT proph: lovenox # Disposition: PT/OT eval. home health recs by OT. PT. Status at Discharge Overall status at discharge: patient is progressing back to baseline Time Spent with Patient Time attestation: Total time spent providing and/or coordinating discharge services: Time spent: Greater than 30 minutes Exam Narrative: Exam Narrative: HEENT: EOMI, PERRL, sclerae nonicteric, pharyngeal mucosa pink and intact NECK: No JVD, adenopathy, or thyromegaly CHEST: Clear to auscultation. Normal effort. HEART: NL S1/S2, regular, no murmur ABDOMEN: BS+, soft, nontender, no mass, no bruits EXTREMITIES: No cyanosis, edema, or clubbing. Dorsalis pedis and radial pulses intact bilaterally NEUROLOGIC:
== END 2020-06-08 10:25 | disposition home or self-care (01) | DRG 638 ==
LOC: ANHED 12:26 → ANH2MED 12:32
PROVIDERS: Admitting Provider Internal Medicine; Emergency Provider General Practice; PCP Family Medicine; Visit Provider Internal Medicine
DX: E11.65 Type 2 diabetes mellitus with hyperglycemia (principal); F33.1 Major depressive disorder, recurrent, moderate; E11.42 Type 2 diabetes mellitus with diabetic polyneuropathy; E86.0 Dehydration; I10 Essential (primary) hypertension; E03.9 Hypothyroidism, unspecified; E78.5 Hyperlipidemia, unspecified; G25.81 Restless legs syndrome; M79.7 Fibromyalgia; F41.9 Anxiety disorder, unspecified; R29.6 Repeated falls; Z66 Do not resuscitate; Z79.4 Long term (current) use of insulin; Z79.899 Other long term (current) drug therapy; Z85.43 Personal history of malignant neoplasm of ovary; Z91.19 Patient's noncompliance with other medical treatment and regimen
CPT/HCPCS: 36415; 36600; 70450; 71045; 71100; 80048; 80053; 80307; 81001; 82010; 82375; 82550; 82607; 82728; 82746; 82805; 82948; 83036; 83050; 83540; 83550; 83735; 84100; 84443; 85025; 86140; 93005; 96360; 96361; 96372; 97110; 97161; 97165; 97535; 99285; A9270; G0378; J1650; J1815; J7030

== ENCOUNTER 2020-09-08 08:08 | Outpatient (CLI) | payer MEDICARE, SELFPAY ==
[2020-09-08 08:39] LABS: Creatinine Urine 68.83 mg/dL (40-278); MALB Creatinine Ratio 18.8 mg/g (0-30); Microalbumin Urine Random < 13.0 mg/L
[2020-09-08 08:48] LABS: Hemoglobin A1C 13.1 % (<5.7)
[2020-09-08 09:08] LABS: Alanine Aminotransferase 25 U/L (14-59); Albumin Level 3.9 g/dL (3.4-5.0); Alkaline Phosphatase 101 U/L (46-116); Anion Gap 19 mmol/L (8-16); Aspartate Amino Transferase 12 U/L (15-37); Bilirubin,Total 0.4 mg/dL (0.00-1.00); Blood Urea Nitrogen 30 mg/dL (7-18); Calcium 10.3 mg/dL (8.5-10.1); Carbon Dioxide 18 mmol/L (21-32); Chloride 101 mmol/L (98-108); Cholesterol 314 mg/dL (0-200); Estimated Glomerular Filt Rate > 60; HDL Direct 52 mg/dL (40-60); LDL Cholesterol Calculated 176 mg/dL (<130); Magnesium 2.3 mg/dL (1.8-2.4); Osmolality Calculated 310 mOsm/kg (285-295); Potassium 5.6 mmol/L (3.5-5.1); Sodium 138 mmol/L (136-145); Triglycerides 428 mg/dL (0-150)
[2020-09-08 09:16] LABS: Glucose 418 mg/dL (70-99)
[2020-09-08 10:29] LABS: Thyroid Stimulating Hormone Reflex 5.62 u/IU/mL (0.36-3.74)
[2020-09-08 12:09] LABS: LDL Cholesterol Direct 198 mg/dL (0-130)
[2020-09-08 12:18] LABS: Free T4 Free Thyroxine Reflex 0.78 ng/dL (0.76-1.46)
== END 2020-09-08 08:09 | disposition home or self-care (01) ==
LOC: CHSLAB 08:11
PROVIDERS: PCP Family Medicine; Visit Provider Family Medicine
DX: R25.2 Cramp and spasm (principal); E11.9 Type 2 diabetes mellitus without complications
CPT/HCPCS: 36415; 80053; 80061; 82043; 83036; 83721; 83735; 84439; 84443

== ENCOUNTER 2020-09-08 10:34 | Emergency (ER) | payer MEDICARE, OTHER, SELFPAY ==
[2020-09-08] VITALS (13 sets, daily range): BP systolic 117–165; BP diastolic 55–87; PULSE 81; RESP 16; TEMP 36.8; O2SAT 94–98
--- NOTE | ~2020-09-08 | CT_ITS ---
EXAMINATION: CT brain wo con DATE: 09/08/2020 11:41 INDICATION: Altered mental status. Dizziness and lethargy. Elevated blood sugar. Left-sided headache. TECHNIQUE: Computed tomography (CT) of the head was performed without intravenous contrast. Sagittal and coronal reconstructions were performed. The mA was adjusted according to patient size. Iterative reconstruction technique was employed. The dose-length product was 529.67 mGy-cm. COMPARISON: head CT dated 06/06/2020 FINDINGS: No acute intracranial hemorrhage, acute infarction or abnormal extra axial fluid collection. There is mild scattered white matter hypoattenuation consistent with chronic small vessel ischemic disease. V entricles are normal and symmetric. No mass/mass effect. The orbits, paranasal sinuses and mastoid ai r cells are normal. IMPRESSION: 1. No acute intracranial process. 2. Mild scattered white matter hypoattenuation consistent with chronic small vessel ischemic disease. Reviewed, dictated and finalized at location A. IMPRESSION: 1. No acute intracranial process. 2. Mild scattered white matter hypoattenuation consistent with chronic small ve ssel ischemic disease.
--- NOTE | ~2020-09-08 | XR_ITS ---
EXAMINATION: XR chest 2V DATE: 09/08/2020 11:43 INDICATION: Dizziness. TECHNIQUE: Frontal and lateral views of the chest were obtained. COMPARISON: Chest single view 06/06/2020 FINDINGS: There is mild atelectasis in left lower lung zone. A calcified right lung nodule and calcif ied right hilar and mediastinal lymph nodes are consistent with old granulomatous disease. No pleural effusion or pneumothorax. The heart size is normal. IMPRESSION: 1. Mild atelectasis in left lower lung zone. Reviewed, dictated and finalized at location A.
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
[2020-09-08 10:53] LABS: Glucose Point of Care 412 mg/dl (65-105)
--- NOTE | 2020-09-08 11:04 | ECG_ITS ---
Measurements Intervals [place] Rate: 73 P: 56 MN: 154 QRS: 45 QRSD: 100 T: 21 QT: 369 QTc: 408 Interpretive Statements SINUS RHYTHM WITH SINUS ARRHYTHMIA BORDERLINE ST-T WAVE ABNORMALITY- INF/LAT LEADS BORDERLINE ECG Electronically Signed On 09-08-2020 11:45:05 CDT by Unruly Panchal D.O.
--- NOTE | 2020-09-08 11:04 | ECG_ITS ---
Measurements Intervals [place] Rate: 73 P: 56 NM: 154 QRS: 45 QRSD: 100 T: 21 QT: 369 QTc: 408 Interpretive Statements SINUS RHYTHM WITH SINUS ARRHYTHMIA BORDERLINE ST-T WAVE ABNORMALITY- INF/LAT LEADS BORDERLINE ECG Electronically Signed On 09-08-2020 11:45:05 CDT by Unruly Panchal D.O.
[2020-09-08] MEDS: SODIUM CHLORIDE 0.9% IV 1,000 ML 999 ML IV CONT ×2 (11:17→12:53)
[2020-09-08 11:38] LABS: Appearance Urine Clear (Clear); Bilirubin Urine 1+ (Negative); Color Urine Light Yellow (Yellow); Glucose Urine UA 3+ (Negative); Ketones Urine 3+ (Negative); Leukocyte Esterase Ur Negative LEU/UL (Negative); Nitrate Urine Negative (Negative); Protein Urine Negative (Negative); Specific Grav Ur >= 1.030 (1.010-1.020); Urobilinogen Urine 0.2 mg/dL (0.2-1.0); pH Urine 5.5 (5.0-8.0)
[2020-09-08 11:52] LABS: Add Urine Microscopic? YES; Bacteria Urine Trace /hpf; Blood Urine Trace-lysed (Negative); Squamous Epithelial Cell Urine Few /hpf (Few); WBC Urine None seen /hpf (0-3)
[2020-09-08 11:54] LABS: Amphetamine Screen Urine Negative (Negative); Barbiturate Screen Urine Negative (Negative); Benzodiazepines Screen Urine Negative (Negative); Cannabinoid Screen Urine Negative (Negative); Cocaine Screen Urine Negative (Negative); Methadone Screen Urine Negative (Negative); Opiate Screen Urine Negative (Negative); Phencyclidine Screen Urine Negative (Negative)
[2020-09-08 11:56] LABS: Ethanol 3 mg/dL (0-6); Salicylate 4.5 mg/dL (2.8-20.0); Troponin I 6.7 ng/L (0.00-60.4)
[2020-09-08 11:59] LABS: Acetaminophen < 2 ug/mL (10-30); Ammonia < 10 umol/L (11-32)
[2020-09-08 12:00] LABS: Base Excess ABG -16.7 mmol/L (0-2); HCO3 ABG 9.9 mmol/L (23-29); Oxygen Saturation ABG 95.7 % (95-97); PCO2 ABG 26.5 mmHg (35-45); PO2 ABG 94.8 mmHg (75-85); pH ABG 7.19 (7.35-7.45)
[2020-09-08 12:01] LABS: Device ROOM AIR; Lactic Acid Reflex 1.1 mmol/L (0.4-2.0); Modified Allen's Test Pass; Site Drawn RIGHT RADIAL
[2020-09-08 12:14] LABS: Glucose Point of Care 398 mg/dl (65-105)
--- NOTE | 2020-09-08 12:15 | PC.NURSE ---
[facility] contacted for transfer.
--- NOTE | 2020-09-08 12:27 | PC.NURSE ---
DR. CARRILLO SPEAKING WITH MARCE THOMAS AT [facility] ABOUT TRANSFER.
[2020-09-08] MEDS: ONDANSETRON INJ 4 MG/2 ML VIAL IV PUSH (12:30)
[2020-09-08] MEDS: INSULIN HUMAN REGULAR (*BKC) 100 UNITS/ML 7 UNITS SUB-Q (12:30)
[2020-09-08] MEDS: MORPHINE SULFATE (*CRX) 2 MG/ML INJ IV PUSH (12:30)
--- NOTE | 2020-09-08 12:33 | PC.NURSE ---
PT TO GO TO ICU ROOM 11, PER AMBIKA, WRAPPER OPERATOR AT [facility].
[2020-09-08] MEDS: INSULIN HUMAN REGULAR (*BKC) 100 UNITS in SODIUM CHLORIDE 0.9% IV 99 ML IV CONT (12:52)
[2020-09-08 12:58] LABS: Anion Gap 26 mmol/L (8-16); Blood Urea Nitrogen 29 mg/dL (7-18); Calcium 8.9 mg/dL (8.5-10.1); Carbon Dioxide 7 mmol/L (21-32); Chloride 103 mmol/L (98-108); Estimated CRCL calculation 53 ml/min; Estimated Glomerular Filt Rate > 60; Osmolality Calculated 306 mOsm/kg (285-295); Phosphorus 3.3 mg/dL (2.6-4.7); Potassium 5.2 mmol/L (3.5-5.1); Sodium 136 mmol/L (136-145)
[2020-09-08 13:01] LABS: Glucose 433 mg/dL (70-99)
--- NOTE | 2020-09-08 13:04 | PC.NURSE ---
[facility] CONTACTED FOR TRANSFER.
[2020-09-08 13:08] LABS: Magnesium 2.2 mg/dL (1.8-2.4)
--- NOTE | 2020-09-08 13:30 | PC.NURSE ---
pt transfered per [facility] with insulin drip infusing.
[2020-09-08 13:34] LABS: Basophils Absolute Auto 0.04 K/mm3 (0.00-0.10); Basophils Percent Auto 0.5 % (0.0-1.0); Eosinophils Absolute Auto 0.34 K/mm3 (0.02-0.50); Eosinophils Percent Auto 4.6 % (1.0-6.0); Hematocrit 45.3 % (35.0-42.0); Hemoglobin 14.5 g/dL (11.7-13.8); Immature Granulocyte Absolute 0.02 K/mm3 (0.00-0.00); Immature Granulocyte Percent A 0.3 % (0.0-0.0); Lymphocytes Absolute Auto 2.31 K/mm3 (1.10-4.50); Mean Corpuscular Hemoglobin 31.4 pg (27.0-31.0); Mean Corpuscular Volume 98.1 fL (78.0-102.0); Mean Platelet Volume 11.4 fl (9.2-11.8); Monocytes Absolute Auto 0.46 K/mm3 (0.10-0.90); Monocytes Percent Auto 6.2 % (2.0-11.0); Neutrophils Absolute Auto 4.3 K/mm3 (1.7-7.2); Neutrophils Percent Auto 57.4 % (50.0-70.0); Platelet Count Result 304 K/mm3 (150-420); Red Blood Count 4.62 M/mm3 (4.20-5.40); Red Cell Distribution Width 13.2 % (11.6-14.4); White Blood Count 7.5 K/mm3 (4.8-10.8)
== END 2020-09-08 13:30 | disposition short-term general hospital (02) ==
PROVIDERS: Emergency Provider Emergency Medicine; PCP Family Medicine
DX: E11.10 Type 2 diabetes mellitus with ketoacidosis without coma (principal); Z79.4 Long term (current) use of insulin; E87.5 Hyperkalemia; Z79.899 Other long term (current) drug therapy
CPT/HCPCS: 36415; 36600; 70450; 71046; 80048; 80053; 80061; 80307; 81001; 82043; 82140; 82805; 82948; 83036; 83605; 83721; 83735; 84100; 84439; 84443; 84484; 85025; 87040; 87086; 87088; 93005; 96361; 96365; 96375; 99285; J1815; J2270; J2405; J7030

== ENCOUNTER 2020-09-08 17:20 | Inpatient (IN) | payer MEDICARE, OTHER, SELFPAY ==
[2020-09-08] VITALS (8 sets, daily range): BP systolic 96–142; BP diastolic 44–77; PULSE 59–83; RESP 15–23; TEMP 36.8–36.9; O2SAT 95–100; BMI 30.5
--- NOTE | 2020-09-08 14:38 | WPDCNINT ---
Assessment and Plan Assessment and plan (1) DKA (diabetic ketoacidoses): Qualifiers: Diabetes mellitus complication detail: without coma Diabetes mellitus type: type 2 Qualified Code(s): E11.10 - Type 2 diabetes mellitus with ketoacidosis without coma Code(s): E11.10 - Type 2 diabetes mellitus with ketoacidosis without coma Status: Acute Assessment and Plan: patient received 2 L saline bolus in ER in blood sugar is down to 250 range start D5 half-normal saline and insulin infusion serial BMPs check HbA1c since patient does not have any GI symptoms I will continue diet as tolerated (2) RLS (restless legs syndrome): Code(s): G25.81 - Restless legs syndrome Status: Acute Assessment and Plan: continue Mirapex (3) Diabetic neuropathy: Qualifiers: Diabetes mellitus complication detail: diabetic polyneuropathy Diabetes mellitus type: type 2 Qualified Code(s): E11.42 - Type 2 diabetes mellitus with diabetic polyneuropathy Code(s): E11.40 - Type 2 diabetes mellitus with diabetic neuropathy, unspecified Status: Acute Assessment and Plan: continue Neurontin (4) Acute dehydration: Code(s): E86.0 - Dehydration Status: Acute Assessment and Plan: patient has already received 2 L of IV fluid bolus I will continue aggressive rehydration (5) Dizziness: Code(s): R42 - Dizziness and giddiness Status: Acute Assessment and Plan: appears to be orthostatic hypertension from her history which could be secondary to autonomic dysfunction from diabetes versus hypovolemia from uncontrolled diabetes rehydration at this time check orthostatic vitals Check thyroid function (6) Toothache: Code(s): K08.89 - Other specified disorders of teeth and supporting structures Status: Acute Assessment and Plan: p.r.n. Advil and [place] depending on the severity afebrile and normal white count no discharge seen patient has a dental appointment in 2 days Additional Plan DVT prophylaxis - SCDs Code Status - Full Code Family updated at bedside [facility] Consult Note Consult date: 09/08/20 Time Seen: 14:00 HPI: Karly Leslie is a 70 year old female with past medical history of type 2 diabetes which was diagnosed in March of 2019 today presented to ED with chief complaint of abnormal lab work. she states that she had lab work ordered by her primary care physician as routine follow-up. Lab work showed elevated blood sugar and acidosis and she was asked to come to ER for further workup. she otherwise denies any complaints and was feeling at baseline. In ED patient was found to be in DKA. She was given IV fluid bolus and started on insulin infusion. She was transferred to [facility] and is being admitted to ICU for DKA. She states her diabetes poorly controlled and blood sugar mostly 200-300 in range. He takes Lantus 30 units twice a day and metformin 3 pills a day. She also takes NovoLog twice a day depending on sliding scale although she is supposed to do it 3 times. States her sugar mostly close to 300. she states her main issue is a left toothache which is 10 out and at this time. it started 4-5 days ago and has been severe no radiation, aggravated with the showing and relieved by Advil. Has an appointment with dentist in 2 days.. She also states that she sometimes get dizzy and lightheaded when trying to get out of bed. Denies any loss of consciousness or syncope. Review of systems - Off and on she feels low and depressed . Denies any suicidal homicidal ideation. She states she feels lonely since her 's 4 years ago. She recently had her children from [place] and was in good mood. She also has a toothache in her left with from last 4-5 days for which she had a dental appointment scheduled 2 days from now. she states pain is 10/10 at this time. she denies any discharge f
--- NOTE | 2020-09-08 14:55 | ADMGEN ---
This patient, Karly Leslie, was admitted to Intensive Care Unit-11 on 09-08-20 at 1420 as a direct admit from [facility]. Patient/family oriented to hospital policies and general routines including ID bracelet, bed and alarms, visiting hours, pain management, procedures, bathroom and other care routines, personal items, smoking policy, room service/diet, and visiting hours. Information on how to activate the Rapid Response Team has been discussed. Patient/Family are encouraged to report perceived risks to care and to ask questions if they do not understand what they are told or what they should do.
--- NOTE | 2020-09-08 15:00 | PM.IMHP ---
H&P: HPI History of Present Illness Date/Time: 09/08/20 15:00 <Mayra Verma PA-C - Last Filed: 09/08/20 21:16> Chief Complaint: Diabetic ketoacidosis. <Mayra Verma PA-C - Last Filed: 09/08/20 21:16> Narrative: This is a 70-year-old female who is being directly admitted to the ICU from the emergency department the [facility] for treatment of diabetic ketoacidosis. Her medical history is significant for insulin-dependent diabetes, hypertension, hyperlipidemia, and hypothyroidism. she was diagnosed with diabetes about a year and a half ago and is not been well controlled; patient admits that her glucose is never under 200 and she thinks her most recent hemoglobin A1c was a little over 11%. She has an appointment with an solvent station attendant but that is not for several months. today she stopped by the hospital to have routine labs drawn which were ordered by her primary care provider approximately 2 weeks ago. She received a call instructing her to go to the emergency department due to hyperglycemia, hyperkalemia, and a low bicarbonate. At the outside hospital she was diagnosed with DKA and she has been started on IV fluid rehydration and an insulin drip. At the time my evaluation she does admit to feeling a bit weak and dizzy the last couple of days, mainly when getting out of bed. She has also been experiencing pain in a left upper molar, which has been very sensitive to cold and air, and she has a dental appointment in 2 days. She has not had fever, chills, sweats, sinus congestion, rhinorrhea, otalgia, odynophagia, chest pain, shortness of breath, cough, nausea, vomiting, diarrhea, and dysuria. <Mayra Verma PA-C - Last Filed: 09/08/20 21:16> Review of Systems Review of Systems: Narrative: Twelve systems were reviewed with pertinent positives and negatives as per HPI. Weight has remained stable. She always has polydipsia and polyuria. She does have neuropathy in her feet from her diabetes. Eye exam last year was reportedly unremarkable and showed no evidence of retinopathy. Except as documented, all other systems were reviewed and are negative. <Mayra Verma PA-C - Last Filed: 09/08/20 21:16> FOR[facility]LY [facility], [facility] Past Medical History Medical History: Medical History (Updated 09/08/20 @ 21:12 by Mayra Verma PA-C) Anemia Depression Diabetic peripheral neuropathy Fibromyalgia Hyperlipidemia Hypertension Hypothyroidism Ovarian cancer At the age of 33, status post hysterectomy. Patient states that half an ovary was left during surgery. She required no further treatment. Restless leg syndrome Shingles Type 2 diabetes mellitus Hemoglobin A1c was > 14% 09/08/2020. C-peptide 0.63. <Mayra Verma PA-C - Last Filed: 09/08/20 21:16> Surgical History Surgical History: Surgical History (Updated 09/08/20 @ 21:07 by Mayra Verma PA-C) History of hysterectomy History of tonsillectomy History of tubal ligation <Mayra Verma PA-C - Last Filed: 09/08/20 21:16> Family History Family History: Family History Grandparent Family history of premature coronary heart disease, Onset Age: 64 Father Family history of respiratory disorder, Onset Age: 87 Cerebrovascular accident Family history of Alzheimer's disease Patient's father is Family history of cardiovascular disease Mother Family history of primary malignant neoplasm of liver, Onset Age: 64 Family history of malignant neoplasm of breast in first degree relative Patient's mother is , Onset Age: 64 Family history of malignant neoplasm <Mayra Verma PA-C - Last Filed: 09/08/20 21:16> Social History Social History: Social History (Updated 09/08/20 @ 21:08 by Mayra Verma PA-C) Social History: The patient is . She lives in her own home in [place], [place]. She does not work. S
[2020-09-08] MEDS: IBUPROFEN 400 MG TABLET PO ×2 (15:06→20:06)
[2020-09-08] MEDS: INSULIN HUMAN REGULAR (*BKC) 100 UNITS in SODIUM CHLORIDE 0.9% IV 99 ML IV CONT (15:08)
[2020-09-08] MEDS: DEXTROSE 5%/0.45% SOD CHL 1,000 ML 150 ML IV CONT (15:10)
[2020-09-08 15:32] LABS: Glucose Point of Care 182 mg/dl (65-105)
[2020-09-08 15:32] LABS: Glucose Point of Care 244 mg/dl (65-105)
[2020-09-08 15:40] LABS: Anion Gap 16 mmol/L (8-16); Blood Urea Nitrogen 22 mg/dL (7-17); Calcium 9.7 mg/dL (8.4-10.2); Carbon Dioxide 10 mmol/L (22-30); Chloride 114 mmol/L (98-107); Estimated CRCL calculation 66 ml/min; Estimated Glomerular Filt Rate > 60; Glucose 218 mg/dL (65-105); Sodium 140 mmol/L (137-145)
[2020-09-08 15:45] LABS: Hemoglobin A1C > 14.0 % (<5.7)
[2020-09-08 16:44] LABS: Glucose Point of Care 166 mg/dl (65-105)
[2020-09-08] MEDS: KCL 20 MEQ/D5/0.45% SOD CHL 1,000 ML 150 ML IV CONT (17:42)
[2020-09-08 18:08] LABS: Add Urine Microscopic? YES; Appearance Urine Clear (Clear); Bacteria Urine Trace /hpf; Bilirubin Urine Negative (Negative); Blood Urine Negative (Negative); Color Urine Yellow (Yellow); Glucose Urine UA 3+ mg/dL (Negative); Ketones Urine 2+ mg/dL (Negative); Leukocyte Esterase Ur Negative LEU/UL (NEGATIVE); Mucus Urine Rare /lpf; Nitrate Urine Negative (Negative); Protein Urine 1+ mg/dL (Negative); RBC Urine 0-2 /hpf (0-2); Specific Grav Ur 1.026 (1.001-1.035); Squamous Epithelial Cell Urine Rare /hpf (Few); Urobilinogen Urine Negative mg/dL (<2.0)
[2020-09-08 18:21] LABS: Glucose Point of Care 229 mg/dl (65-105)
[2020-09-08 19:03] LABS: Glucose Point of Care 198 mg/dl (65-105)
[2020-09-08 19:37] LABS: Anion Gap 8 mmol/L (8-16); Blood Urea Nitrogen 23 mg/dL (7-17); Calcium 9.3 mg/dL (8.4-10.2); Carbon Dioxide 17 mmol/L (22-30); Chloride 113 mmol/L (98-107); Estimated CRCL calculation 66 ml/min; Estimated Glomerular Filt Rate > 60; Glucose 210 mg/dL (65-105); Potassium 4.1 mmol/L (3.4-5.0); Sodium 138 mmol/L (137-145)
[2020-09-08 20:04] LABS: Glucose Point of Care 197 mg/dl (65-105)
[2020-09-08] MEDS: GABAPENTIN 300 MG CAPSULE PO (20:07)
[2020-09-08] MEDS: PRAMIPEXOLE 1 MG TABLET 3 MG PO (20:08)
[2020-09-08 21:03] LABS: Glucose Point of Care 134 mg/dl (65-105)
[2020-09-08 22:00] LABS: Glucose Point of Care 110 mg/dl (65-105)
[2020-09-08 22:59] LABS: Anion Gap 4 mmol/L (8-16); Blood Urea Nitrogen 20 mg/dL (7-17); Calcium 8.9 mg/dL (8.4-10.2); Carbon Dioxide 18 mmol/L (22-30); Chloride 114 mmol/L (98-107); Estimated CRCL calculation 78 ml/min; Estimated Glomerular Filt Rate > 60; Glucose 103 mg/dL (65-105); Potassium 3.9 mmol/L (3.4-5.0); Sodium 136 mmol/L (137-145)
[2020-09-08 23:01] LABS: Glucose Point of Care 101 mg/dl (65-105)
[2020-09-08 23:58] LABS: Glucose Point of Care 101 mg/dl (65-105)
[2020-09-09] VITALS (16 sets, daily range): BP systolic 92–144; BP diastolic 56–90; PULSE 58–88; RESP 13–20; TEMP 36.3–36.8; O2SAT 94–100; BMI 30.7
[2020-09-09] MEDS: INSULIN GLARGINE (*BKC) 100 UNITS/ML 40 UNITS SUB-Q (00:04)
[2020-09-09] MEDS: IBUPROFEN 400 MG TABLET PO ×3 (00:18→22:59)
[2020-09-09 01:08] LABS: Glucose Point of Care 101 mg/dl (65-105)
[2020-09-09 04:20] LABS: Glucose Point of Care 209 mg/dl (65-105)
[2020-09-09 05:33] LABS: Hematocrit 39.3 % (37.0-47.0); Mean Corpuscular HGB Conc 30.5 g/dl (32-36); Mean Corpuscular Hemoglobin 30.8 pg (26-34); Mean Corpuscular Volume 100.8 fl (80-100); Platelet Count Result 213 k/mm3 (150-375); Red Cell Distribution Width 13.5 % (11.5-14.5)
[2020-09-09 05:50] LABS: Alanine Aminotransferase 12 U/L (4-35); Albumin Level 3.1 g/dL (3.5-5.1); Alkaline Phosphatase 76 U/L (38-126); Anion Gap 7 mmol/L (8-16); Aspartate Amino Transferase 19 U/L (14-36); Bilirubin,Total 0.3 mg/dL (0.2-1.3); Blood Urea Nitrogen 20 mg/dL (7-17); Calcium 9.5 mg/dL (8.4-10.2); Carbon Dioxide 18 mmol/L (22-30); Chloride 109 mmol/L (98-107); Estimated CRCL calculation 66 ml/min; Estimated Glomerular Filt Rate > 60; Glucose 229 mg/dL (65-105); Magnesium 1.9 mg/dL (1.6-2.3); Phosphorus 2.4 mg/dL (2.5-4.5); Potassium 4.2 mmol/L (3.4-5.0); Sodium 134 mmol/L (137-145)
[2020-09-09] MEDS: POTASSIUM PHOS/SODIUM PHOS 250 MG TABLET PO (08:22)
[2020-09-09] MEDS: INSULIN ASPART (*BKC) 100 UNITS/ML SUB-Q ×3 (08:23→17:48)
[2020-09-09 08:25] LABS: Anion Gap 8 mmol/L (8-16); Blood Urea Nitrogen 19 mg/dL (7-17); Calcium 9.7 mg/dL (8.4-10.2); Carbon Dioxide 16 mmol/L (22-30); Chloride 109 mmol/L (98-107); Estimated CRCL calculation 78 ml/min; Estimated Glomerular Filt Rate > 60; Glucose 283 mg/dL (65-105); Potassium 4.4 mmol/L (3.4-5.0); Sodium 133 mmol/L (137-145)
[2020-09-09 08:29] LABS: Glucose Point of Care 275 mg/dl (65-105)
--- NOTE | 2020-09-09 08:47 | WPDINTPN ---
Progress Note: A&P Assessment and Plan (1) DKA (diabetic ketoacidoses): Qualifiers: Diabetes mellitus complication detail: without coma Diabetes mellitus type: type 2 Qualified Code(s): E11.10 - Type 2 diabetes mellitus with ketoacidosis without coma Code(s): E11.10 - Type 2 diabetes mellitus with ketoacidosis without coma Status: Acute Assessment and Plan: patient received 2 L saline bolus in ER and was started on IV fluids and insulin infusion serial BMPs were done her HbA1c > 14 which shows extremely poor control of her diabetes overnight patient's anion gap has closed. will transition her to Lantus in with meal insulin. Lantus was increased to 35 units q.12 hours resume metformin (2) RLS (restless legs syndrome): Code(s): G25.81 - Restless legs syndrome Status: Acute Assessment and Plan: continue Mirapex (3) Diabetic neuropathy: Qualifiers: Diabetes mellitus type: type 2 Diabetes mellitus complication detail: diabetic polyneuropathy Qualified Code(s): E11.42 - Type 2 diabetes mellitus with diabetic polyneuropathy Code(s): E11.40 - Type 2 diabetes mellitus with diabetic neuropathy, unspecified Status: Acute Assessment and Plan: continue Neurontin (4) Acute dehydration: Code(s): E86.0 - Dehydration Status: Acute Assessment and Plan: improved with rehydration (5) Dizziness: Code(s): R42 - Dizziness and giddiness Status: Acute Assessment and Plan: appears to be orthostatic hypertension from her history which could be secondary to autonomic dysfunction from diabetes versus hypovolemia from uncontrolled diabetes rehydration at this time check orthostatic vitals (6) Toothache: Code(s): K08.89 - Other specified disorders of teeth and supporting structures Status: Acute Assessment and Plan: p.r.n. Advil and [place] depending on the severity afebrile and normal white count no discharge seen patient has a dental appointment soon (7) Hypothyroidism: Code(s): E03.9 - Hypothyroidism, unspecified Status: Acute Assessment and Plan: patient has a history of hypothyroidism but discontinue taking levothyroxine few years ago. Her TSH is high Although T4 is low normal. T3 is pending. Will resume levothyroxine at low-dose Additional Plan DVT prophylaxis - SCDs Code Status - patient is DNR Subjective Date/time seen: 09/09/20 patient feels much better this morning. She denies any nausea vomiting abdominal pain. Her toothache is better and is only 2/10 today. Slept well and ate her dinner. Patient denies fever, chest pain, shortness of breath, cough, nausea vomiting, abdominal pain,, diarrhea, headache or constipation. All other systems were reviewed and were negative. She her anion gap closed overnight and she was transitioned to subcutaneous Lantus and sliding scale around 1:00 a.m. Review of Systems Review of Systems: All systems reviewed & are unremarkable except as noted in HPI and below ( HPI) Exam Narrative: Exam Narrative: General: Pt is alert awake and in NAD Lungs/Chest: Trachea central Clear BS B/L, No crackles or wheezing. Cardiac: RRR. Normal S1 S2. No murmurs Circulation: Pedal pulses are intact and symmetrical. Abdomen: Normal bowel sounds.. Soft. NT. ND. Extremities: No clubbing, cyanosis or edema. Warm : Grace in place Neurologic: Follows commands. Moves all 4 extremities PERRL alert oriented x3 Skin: No Rash Psych: tearful but normal affect HEENT: caries in left upper jaw and some tenderness but no redness or swelling noticed Objective Data Vital Signs Vital Signs: Vital Signs - 24 hr 09/08/20 14:15 09/08/20 16:00 09/08/20 18:00 Temperature 36.8 C 36.9 C Pulse Rate 72 71 73 Respiratory Rate 18 16 16 Blood Pressure 142/69 H 106/60 100/44 L Pulse Oximetry 98 97 98 09/08/20 19:50 09/08/20 19:54
[2020-09-09] MEDS: metFORMIN HCL 500 MG TABLET 1000 MG PO (12:21)
[2020-09-09] MEDS: LEVOTHYROXINE SODIUM 50 MCG TABLET PO (12:21)
--- NOTE | 2020-09-09 12:21 | PCNSR ---
On 09/09/20, the student, Mili Lebron, provided care and completed [facility] documentation on this patient. I have reviewed the student's documentation and agree with the findings.
[2020-09-09 13:11] LABS: Anion Gap 4 mmol/L (8-16); Blood Urea Nitrogen 19 mg/dL (7-17); Calcium 9.8 mg/dL (8.4-10.2); Carbon Dioxide 22 mmol/L (22-30); Chloride 109 mmol/L (98-107); Estimated CRCL calculation 66 ml/min; Estimated Glomerular Filt Rate > 60; Glucose 340 mg/dL (65-105); Sodium 135 mmol/L (137-145)
--- NOTE | 2020-09-09 14:14 | PM.IMPN ---
Progress Note: A&P Assessment and Plan (1) Diabetic ketoacidosis, type II: Code(s): E11.10 - Type 2 diabetes mellitus with ketoacidosis without coma Status: Acute Assessment and Plan: admission and a gap of 26 with bicarbonate of 7. This is now resolved with IV insulin, IV fluids per DKA protocol. She has been transitioned back to Lantus /NovoLog and IV insulin has been discontinued (2) Type 2 diabetes mellitus: Qualifiers: Diabetes mellitus complication status: without complication Diabetes mellitus chcf insulin use: without terminal makeup operator use Qualified Code(s): E11.9 - Type 2 diabetes mellitus without complications Code(s): E11.9 - Type 2 diabetes mellitus without complications Status: Acute Assessment and Plan: hemoglobin A1c came back at more than 14. On Lantus and NovoLog. Adjusting the dose of Lantus and NovoLog She has a follow-up appointment with industrial economics professor as an outpatient basis (3) Toothache: Code(s): K08.89 - Other specified disorders of teeth and supporting structures Status: Acute Assessment and Plan: follow-up with dentist for evaluation No signs of infection noted on my examination (4) Diabetic neuropathy: Qualifiers: Diabetes mellitus type: type 2 Diabetes mellitus complication detail: diabetic polyneuropathy Qualified Code(s): E11.42 - Type 2 diabetes mellitus with diabetic polyneuropathy Code(s): E11.40 - Type 2 diabetes mellitus with diabetic neuropathy, unspecified Status: Acute Assessment and Plan: on gabapentin which will be continued (5) Hypothyroidism: Code(s): E03.9 - Hypothyroidism, unspecified Status: Acute Assessment and Plan: continue levothyroxine (6) RLS (restless legs syndrome): Code(s): G25.81 - Restless legs syndrome Status: Acute Assessment and Plan: continue pramipexole Additional Plan transfer out of the ICU today to medical floor Subjective Date/time seen: 09/09/20 14:14 Interval history: she complains of toothache that has been ongoing for week now. She is going to see her dentist's which schedule for tomorrow. She denies any fever chills. She has been feeling weak over the past few days. She was noted to have acidosis on her routine blood work along with severe hyperglycemia hence was directed to come to the ER for evaluation Review of Systems Review of Systems: Narrative: - CONSTITUTIONAL: Denies weight loss, fever and chills. - HEENT: Denies changes in vision and hearing - RESPIRATORY: Denies SOB and cough. - CV: Denies palpitations and CP. - GI: Denies abdominal pain, nausea, vomiting and diarrhea. - : Denies dysuria and urinary frequency. - MSK: Denies myalgia and joint pain. - SKIN: Denies rash and pruritus. - NEUROLOGICAL: Denies headache and syncope. - PSYCHIATRIC: Denies recent changes in mood. Denies anxiety and depression. All systems reviewed & are unremarkable except as noted in HPI and below Constitutional: Constitutional: Reports fatigue and Reports weakness Neurologic: Reports weakness Endocrine: Endocrine: Reports fatigue Exam Narrative: Exam Narrative: General: awake and conversant, not in acute distress. HEENT: Normocephalic, atraumatic. PERRL, EOMI. Sclerae anicteric. Tacky mucous membranes. dental caries noted on maxillary 2nd moral Neck: Supple. No cervical lymphadenopathy. Respiratory: Lungs are clear to auscultation bilaterally. no acute distress Cardiovascular: Regular rate and rhythm with S1-S2. Gastrointestinal: Abdomen is soft, nontender, and nondistended with positive bowel sounds. Skin: Warm and dry. No rash or lesions on limited exam. Extremities: No cyanosis, clubbing, or edema. Radial and pedal pulses intact. Neurological: Alert. Cranial nerves 2-12 are grossly intact. No gross focal deficits to casual conversation. Psychiatric: Pleasant and cooperat
[2020-09-09] MEDS: FLUCONAZOLE 150 MG TABLET PO (15:32)
--- NOTE | 2020-09-09 16:20 | PC.NURSE ---
This patient, Karly Leslie, was transferred to [facility] on 09/09/20 at 1620. Personal belongings sent with patient. Report given to SAMMY Maldonado. Appropriate documentation sent with patient.
--- NOTE | 2020-09-09 16:24 | PC.NURSE ---
Patient transferred from ICU to [address] [place] [address] at 1623.
[2020-09-09 16:54] LABS: Glucose Point of Care 333 mg/dl (65-105)
[2020-09-09 17:35] LABS: Glucose Point of Care 294 mg/dl (65-105)
[2020-09-09] MEDS: INSULIN GLARGINE (*BKC) 100 UNITS/ML 35 UNITS SUB-Q (20:12)
[2020-09-09] MEDS: metFORMIN HCL 500 MG TABLET PO (20:13)
[2020-09-09] MEDS: PRAMIPEXOLE 1 MG TABLET 3 MG PO (20:13)
[2020-09-09] MEDS: GABAPENTIN 300 MG CAPSULE PO (20:13)
[2020-09-09 23:07] LABS: Glucose Point of Care 330 mg/dl (65-105)
[2020-09-10 06:00] VITALS: BP 121/60; PULSE 59; RESP 20; TEMP 36.6; O2SAT 100
[2020-09-10] MEDS: LEVOTHYROXINE SODIUM 50 MCG TABLET PO (06:30)
[2020-09-10 06:47] LABS: Hematocrit 38.5 % (37.0-47.0); Hemoglobin 12.3 g/dL (12.0-15.0); Mean Corpuscular HGB Conc 31.9 g/dl (32-36); Mean Platelet Volume 10.3 fl (7.4-10.4); Platelet Count Result 231 k/mm3 (150-375); Red Blood Count 3.97 M/mm3 (4.2-5.4); Red Cell Distribution Width 13.5 % (11.5-14.5); White Blood Count 5.2 K/mm3 (4.5-10.0)
[2020-09-10 07:06] LABS: Alanine Aminotransferase 14 U/L (4-35); Albumin Level 3.3 g/dL (3.5-5.1); Alkaline Phosphatase 71 U/L (38-126); Anion Gap 6 mmol/L (8-16); Aspartate Amino Transferase 19 U/L (14-36); Bilirubin,Total 0.4 mg/dL (0.2-1.3); Blood Urea Nitrogen 16 mg/dL (7-17); Calcium 9.9 mg/dL (8.4-10.2); Carbon Dioxide 21 mmol/L (22-30); Chloride 111 mmol/L (98-107); Estimated CRCL calculation 95 ml/min; Estimated Glomerular Filt Rate > 60; Glucose 103 mg/dL (65-105); Magnesium 1.8 mg/dL (1.6-2.3); Phosphorus 2.1 mg/dL (2.5-4.5); Potassium 3.2 mmol/L (3.4-5.0); Sodium 138 mmol/L (137-145)
[2020-09-10 08:00] VITALS: BP 125/73; PULSE 54; RESP 18; TEMP 35.9; O2SAT 98
[2020-09-10 08:40] VITALS: BP 130/74; PULSE 68; O2SAT 97
[2020-09-10 08:41] VITALS: BP 151/77; PULSE 68; O2SAT 100
[2020-09-10] MEDS: metFORMIN HCL 500 MG TABLET 1000 MG PO (08:41)
[2020-09-10] MEDS: HYDROcodone/acetaminophen (*CRX) 5-325 MG TABLET 1 TAB PO ×3 (08:56→21:14)
[2020-09-10] MEDS: INSULIN ASPART (*BKC) 100 UNITS/ML SUB-Q ×2 (08:58→17:49)
[2020-09-10 10:37] LABS: Glucose Point of Care 91 mg/dl (65-105)
[2020-09-10] MEDS: POTASSIUM CHLORIDE 20 MEQ TABLET 40 MEQ PO (13:53)
[2020-09-10 13:57] LABS: Glucose Point of Care 141 mg/dl (65-105)
[2020-09-10 14:00] VITALS: BP 107/64; PULSE 74; RESP 16; TEMP 36.4; O2SAT 96
[2020-09-10 16:54] LABS: Glucose Point of Care 259 mg/dl (65-105)
--- NOTE | 2020-09-10 16:56 | PM.IMPN ---
Progress Note: A&P Assessment and Plan (1) Diabetic ketoacidosis, type II: Code(s): E11.10 - Type 2 diabetes mellitus with ketoacidosis without coma Status: Acute Assessment and Plan: admission and a gap of 26 with bicarbonate of 7. This is now resolved with IV insulin, IV fluids per DKA protocol. She has been transitioned back to Lantus /NovoLog and IV insulin has been discontinued (2) Type 2 diabetes mellitus: Qualifiers: Diabetes mellitus complication status: without complication Diabetes mellitus skilled nursing insulin use: without emt intermediate use Qualified Code(s): E11.9 - Type 2 diabetes mellitus without complications Code(s): E11.9 - Type 2 diabetes mellitus without complications Status: Acute Assessment and Plan: hemoglobin A1c came back at more than 14. On Lantus and NovoLog. Adjusting the dose of Lantus and NovoLog She has a follow-up appointment with grain elevator worker as an outpatient basis (3) Toothache: Code(s): K08.89 - Other specified disorders of teeth and supporting structures Status: Acute Assessment and Plan: follow-up with dentist for evaluation No signs of infection noted on my examination (4) Diabetic neuropathy: Qualifiers: Diabetes mellitus type: type 2 Diabetes mellitus complication detail: diabetic polyneuropathy Qualified Code(s): E11.42 - Type 2 diabetes mellitus with diabetic polyneuropathy Code(s): E11.40 - Type 2 diabetes mellitus with diabetic neuropathy, unspecified Status: Acute Assessment and Plan: on gabapentin which will be continued (5) Hypothyroidism: Code(s): E03.9 - Hypothyroidism, unspecified Status: Acute Assessment and Plan: continue levothyroxine (6) RLS (restless legs syndrome): Code(s): G25.81 - Restless legs syndrome Status: Acute Assessment and Plan: continue pramipexole Additional Plan 09/10: Large drop in her blood sugar from 300-100 this morning. She received 35 units of Lantus last night. Will hold her Lantus this morning. And monitor her blood sugar throughout the day today she will receive 35 units of Lantus again tonight. Looks like she is only requiring once a day Lantus here in this hospital will add NovoLog prandial Subjective Date/time seen: 09/10/20 16:56 Interval history: No overnight events. Feels okay. Blood sugar was down to 100 this morning from 300 last night. Eating okay and ambulating okay. Review of Systems Review of Systems: All systems reviewed & are unremarkable except as noted in HPI and below Exam Narrative: Exam Narrative: General: awake and conversant, not in acute distress. HEENT: Normocephalic, atraumatic. PERRL, EOMI. Sclerae anicteric. Tacky mucous membranes. dental caries noted on maxillary 2nd moral Neck: Supple. No cervical lymphadenopathy. Respiratory: Lungs are clear to auscultation bilaterally. no acute distress Cardiovascular: Regular rate and rhythm with S1-S2. Gastrointestinal: Abdomen is soft, nontender, and nondistended with positive bowel sounds. Skin: Warm and dry. No rash or lesions on limited exam. Extremities: No cyanosis, clubbing, or edema. Radial and pedal pulses intact. Neurological: Alert. Cranial nerves 2-12 are grossly intact. No gross focal deficits to casual conversation. Psychiatric: Pleasant and cooperative with normal mood and affect. Objective Data Vital Signs Vital Signs: Vital Signs - 24 hr 09/09/20 20:00 09/09/20 20:01 09/09/20 20:02 Temperature 97.9 F 97.5 F L 97.4 F L Pulse Rate 59 L 59 L 73 Respiratory Rate 20 20 20 Blood Pressure 121/60 114/65 105/68 Pulse Oximetry 100 100 100 09/09/20 22:00 09/10/20 06:00 09/10/20 08:00 Temperature 97.9 F 97.9 F 96.7 F L Pulse Rate 67 59 L 54 L Respiratory Rate 18 20 18 Blood Pressure 137/72 121/60 125/73 Pulse Oximetry 99 100 98 09/10/20 08:40 09/10/20 08:41 09/10/20 14:00 Tem
[2020-09-10 17:22] LABS: Glucose Point of Care 259 mg/dl (65-105)
[2020-09-10] MEDS: INSULIN ASPART (*BKC) 100 UNITS/ML 7 UNITS SUB-Q (17:48)
[2020-09-10] MEDS: GABAPENTIN 300 MG CAPSULE PO (20:58)
[2020-09-10] MEDS: metFORMIN HCL 500 MG TABLET PO (20:58)
[2020-09-10] MEDS: PRAMIPEXOLE 1 MG TABLET 3 MG PO (20:58)
[2020-09-10] MEDS: INSULIN GLARGINE (*BKC) 100 UNITS/ML 35 UNITS SUB-Q (21:02)
[2020-09-10 22:07] LABS: Glucose Point of Care 191 mg/dl (65-105)
[2020-09-11] MEDS: LEVOTHYROXINE SODIUM 50 MCG TABLET PO (06:05)
[2020-09-11] MEDS: HYDROcodone/acetaminophen (*CRX) 5-325 MG TABLET 1 TAB PO (06:07)
[2020-09-11 06:13] VITALS: BP 122/80; PULSE 80; RESP 18; TEMP 36.5; O2SAT 100
[2020-09-11 07:03] LABS: Anion Gap 5 mmol/L (8-16); Blood Urea Nitrogen 9 mg/dL (7-17); Calcium 10.5 mg/dL (8.4-10.2); Carbon Dioxide 25 mmol/L (22-30); Chloride 109 mmol/L (98-107); Estimated CRCL calculation 95 ml/min; Estimated Glomerular Filt Rate > 60; Glucose 76 mg/dL (65-105); Potassium 3.6 mmol/L (3.4-5.0); Sodium 139 mmol/L (137-145)
[2020-09-11 07:29] LABS: Glucose Point of Care 78 mg/dl (65-105)
[2020-09-11] MEDS: metFORMIN HCL 500 MG TABLET 1000 MG PO (08:36)
[2020-09-11] MEDS: INSULIN ASPART (*BKC) 100 UNITS/ML 7 UNITS SUB-Q (08:37)
--- NOTE | 2020-09-11 09:16 | PM.DS ---
DS: Admitting Diagnosis Admitting Diagnosis Admitting Diagnosis: diabetic ketoacidosis DS: Discharge Diagnosis Discharge Diagnosis (1) Restless leg syndrome: Code(s): G25.81 - Restless legs syndrome Status: Acute (2) Diabetic ketoacidosis, type II: Code(s): E11.10 - Type 2 diabetes mellitus with ketoacidosis without coma Status: Acute (3) Hypothyroidism: Code(s): E03.9 - Hypothyroidism, unspecified Status: Acute (4) Toothache: Code(s): K08.89 - Other specified disorders of teeth and supporting structures Status: Acute (5) Dizziness: Code(s): R42 - Dizziness and giddiness Status: Acute (6) RLS (restless legs syndrome): Code(s): G25.81 - Restless legs syndrome Status: Acute (7) Thyroid disorder: Code(s): E07.9 - Disorder of thyroid, unspecified Status: Acute (8) Diabetic peripheral neuropathy: Code(s): E11.42 - Type 2 diabetes mellitus with diabetic polyneuropathy Status: Acute (9) Diabetic neuropathy: Qualifiers: Diabetes mellitus type: type 2 Diabetes mellitus complication detail: diabetic polyneuropathy Qualified Code(s): E11.42 - Type 2 diabetes mellitus with diabetic polyneuropathy Code(s): E11.40 - Type 2 diabetes mellitus with diabetic neuropathy, unspecified Status: Acute (10) Hypokalemia: Code(s): E87.6 - Hypokalemia Status: Acute (11) Hypophosphatemia: Code(s): E83.39 - Other disorders of phosphorus metabolism Status: Acute (12) Diabetes mellitus with hyperglycemia: Qualifiers: Diabetes mellitus technician terminal and repeater insulin use: with intermediate use Diabetes mellitus type: type 2 Qualified Code(s): E11.65 - Type 2 diabetes mellitus with hyperglycemia; 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 Code(s): E11.65 - Type 2 diabetes mellitus with hyperglycemia Status: Acute (13) DKA (diabetic ketoacidoses): Qualifiers: Diabetes mellitus complication detail: without coma Diabetes mellitus type: type 2 Qualified Code(s): E11.10 - Type 2 diabetes mellitus with ketoacidosis without coma Code(s): E11.10 - Type 2 diabetes mellitus with ketoacidosis without coma Status: Acute (14) Type 2 diabetes mellitus: Qualifiers: Diabetes mellitus complication status: without complication Diabetes mellitus technician terminal and repeater insulin use: without technician terminal and repeater use Qualified Code(s): E11.9 - Type 2 diabetes mellitus without complications Code(s): E11.9 - Type 2 diabetes mellitus without complications Status: Acute DS: Summary Hospital Course Hospital Course: This is a 70-year-old female who is being directly admitted to the ICU from the emergency department the [facility] for treatment of diabetic ketoacidosis. Her medical history is significant for insulin-dependent diabetes, hypertension, hyperlipidemia, and hypothyroidism. she was diagnosed with diabetes about a year and a half ago and is not been well controlled; patient admits that her glucose is never under 200 and she thinks her most recent hemoglobin A1c was a little over 11%. 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 on the day of admission she stopped by the hospital to have routine labs drawn which were ordered by her primary care provider approximately 2 weeks ago. She received a call instructing her to go to the emergency department due to hyperglycemia, hyperkalemia, and a low bicarbonate. At the outside hospital she was diagnosed with DKA and she has been started on IV fluid rehydration and an insulin drip. She has also been experiencing pain in a left upper molar, which has been very sensitive to cold and air, and she has a dental appointment in 2 days. She has not had fever, chills, sweats, sinus congestion, rhinorrhea, otalgia, odynophagia, chest pain, shortness of breath, cough, nausea, vomiting, diarrhea, and dy
[2020-09-16 08:56] LABS: Triiodothyronine T3 Free 1.5 pg/mL (2.3-4.2)
== END 2020-09-11 11:25 | disposition home or self-care (01) | DRG 639 ==
LOC: ANH3MEDSUR 09-11 09:16 → ANHICU 09-16 10:43
PROVIDERS: Internal Medicine; Admitting Provider Internal Medicine; PCP Family Medicine; Visit Provider Internal Medicine
DX: E11.10 Type 2 diabetes mellitus with ketoacidosis without coma (principal); G25.81 Restless legs syndrome; E03.9 Hypothyroidism, unspecified; E11.42 Type 2 diabetes mellitus with diabetic polyneuropathy; E11.65 Type 2 diabetes mellitus with hyperglycemia; I95.1 Orthostatic hypotension; E86.0 Dehydration; K08.89 Other specified disorders of teeth and supporting structures; E87.6 Hypokalemia; E83.39 Other disorders of phosphorus metabolism; E78.5 Hyperlipidemia, unspecified; D64.9 Anemia, unspecified; F32.9 Major depressive disorder, single episode, unspecified; M79.7 Fibromyalgia; Z79.4 Long term (current) use of insulin; Z85.43 Personal history of malignant neoplasm of ovary; Z90.710 Acquired absence of both cervix and uterus
CPT/HCPCS: 36415; 80048; 80053; 81001; 82948; 83036; 83735; 84100; 84481; 85027; A9270; J1815; J3480

== ENCOUNTER 2020-10-24 02:11 | Inpatient (IN) | payer MEDICARE, OTHER, SELFPAY ==
[2020-10-24] VITALS (17 sets, daily range): BP systolic 97–165; BP diastolic 44–83; PULSE 65–100; RESP 14–28; TEMP 36.6–37.2; O2SAT 93–99; BMI 30.6
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
--- NOTE | ~2020-10-24 | XR_ITS ---
EXAMINATION: XR chest 1V portable INDICATION: Persistent cough TECHNIQUE: Portable AP chest at 0848 hours COMPARISON: 10/24/2020, 09/08/2020 FINDINGS: There are minimal airspace opacities of the lung bases. No pleural effusion or pneumothorax is identified. There is mild cardiomegaly. IMPRESSION: 1. Minimal airspace opacities of the lung bases, consistent with atelectasis versus pneumonia. 2. Cardiomegaly. Reviewed, dictated and finalized at location A. IMPRESSION: 1. Minimal airspace opacities of the lung bases, consistent with atelectasis ve rsus pneumonia. 2. Cardiomegaly.
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
[2020-10-24 02:23] LABS: Glucose Point of Care > 500 mg/dl (65-105)
--- NOTE | 2020-10-24 02:50 | PC.NURSE ---
Pt to CT scan at this time
[2020-10-24 02:59] LABS: Basophils Percent Auto 0.2 % (0.2-1.2); Eosinophils Percent Auto 0.2 % (0-4.4); Hematocrit 46.6 % (37.0-47.0); Immature Granulocyte Absolute 0.02 K/mm3 (0.00-0.031); Immature Granulocyte Percent A 0.3 % (0-0.5); Lymphocytes Absolute Auto 0.62 K/mm3 (0.9-3.2); Lymphocytes Percent Auto 9.4 % (18.3-44.2); Mean Corpuscular Hemoglobin 31.3 pg (26-34); Mean Corpuscular Volume 104.3 fl (80-100); Mean Platelet Volume 10.3 fl (7.4-10.4); Monocytes Absolute Auto 0.7 K/mm3 (0.1-0.6); Monocytes Percent Auto 9.8 % (2.6-8.5); Neutrophils Absolute Auto 5.3 K/mm3 (1.3-6.7); Neutrophils Percent Auto 80.1 % (45.5-73.1); Platelet Count Result 234 k/mm3 (150-375); Red Blood Count 4.47 M/mm3 (4.2-5.4); White Blood Count 6.6 K/mm3 (4.5-10.0)
[2020-10-24 03:25] LABS: Estimated CRCL calculation 51 ml/min; Estimated Glomerular Filt Rate > 60
[2020-10-24 03:25] LABS: Alanine Aminotransferase 25 U/L (4-35); Albumin Level 4.8 g/dL (3.5-5.1); Alkaline Phosphatase 134 U/L (38-126); Anion Gap 28 mmol/L (8-16); Aspartate Amino Transferase 32 U/L (14-36); Bilirubin,Total 0.5 mg/dL (0.2-1.3); Blood Urea Nitrogen 32 mg/dL (7-17); Calcium 11.4 mg/dL (8.4-10.2); Carbon Dioxide 8 mmol/L (22-30); Chloride 97 mmol/L (98-107); Estimated CRCL calculation 41 ml/min; Estimated Glomerular Filt Rate 55; Glucose 783 mg/dL (65-110); Magnesium 2.4 mg/dL (1.6-2.3); Potassium 6.8 mmol/L (3.4-5.0); Sodium 133 mmol/L (137-145)
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
--- NOTE | 2020-10-24 03:48 | ECG_ITS ---
Measurements Intervals [place] Rate: 91 P: 61 RI: 175 QRS: 4 QRSD: 98 T: 150 QT: 339 QTc: 417 Interpretive Statements SINUS RHYTHM ATRIAL COUPLET AND ATRIAL PREMATURE COMPLEX POSSIBLE LEFT ATRIAL ENLARGEMENT CANNOT RULE OUT SEPTAL INFARCT, AGE INDETERMINATE BORDERLINE ST-T WAVE ABNORMALITY- HIGH LATERAL LEADS BASELINE ARTIFACT- I, II, III, AVR, AVL, AVF, V1-V6 ABNORMAL ECG Electronically Signed On 10-24-2020 7:05:21 CDT by Unruly Panchal D.O.
[2020-10-24 03:49] LABS: Alveolar/Arterial O2 Gradient 52.8 mmHg; Base Excess ABG -20.6 mEq/l (+/-2.0); Fractional Inspired Oxygen 21 %; HCO3 ABG 7.1 mEq/l (22.0-26.0); Oxygen Saturation ABG 88.1 % (95.0-100.0); Oxyhemoglobin 89.5 % THb (90.0-100.0); PO2 ABG 69.7 mmHg (80.0-100.0); PO2 FiO2 Ratio Arterial Blood 3.32 %; Total Hemoglobin 14.3 g/dL (12.0-18.0)
[2020-10-24 03:52] LABS: Device ROOM AIR; Modified Allen's Test Pass; PCO2 ABG 22.7 mmHg (35.0-45.0); Site Drawn LEFT RADIAL; pH ABG 7.113 (7.350-7.450)
[2020-10-24] MEDS: SODIUM CHLORIDE 0.9% IV 1,000 ML 999 ML IV CONT ×3 (03:53→05:10)
[2020-10-24 04:10] LABS: Add Urine Microscopic? YES; Appearance Urine Clear (Clear); Bilirubin Urine Negative (Negative); Blood Urine 1+ (Negative); Color Urine Straw (Yellow); Glucose Urine UA 3+ mg/dL (Negative); Ketones Urine 2+ mg/dL (Negative); Leukocyte Esterase Ur Negative LEU/UL (Negative); Mucus Urine Rare /lpf; Nitrate Urine Negative (Negative); Protein Urine Negative (Negative); RBC Urine 0-2 /hpf (0-2); Specific Grav Ur 1.028 (1.001-1.035); Squamous Epithelial Cell Urine Occasional /hpf (Few); Urobilinogen Urine Negative mg/dL (<2.0); WBC Urine 0-3 /hpf
[2020-10-24] MEDS: INSULIN HUMAN REGULAR (*BKC) 100 UNITS in SODIUM CHLORIDE 0.9% IV 99 ML 14.5 UNITS IV CONT (04:31)
--- NOTE | 2020-10-24 04:50 | PC.NURSE ---
c-collar taken off pt per md verbal order
[2020-10-24 05:17] LABS: Glucose Point of Care > 500 mg/dl (65-105)
[2020-10-24 05:44] LABS: Blood Urea Nitrogen 29 mg/dL (7-17); Calcium 10.5 mg/dL (8.4-10.2); Carbon Dioxide < 5 mmol/L (22-30); Chloride 100 mmol/L (98-107); Estimated CRCL calculation 41 ml/min; Estimated Glomerular Filt Rate 55; Potassium 5.5 mmol/L (3.4-5.0); Sodium 136 mmol/L (137-145)
[2020-10-24 05:49] LABS: Glucose 613 mg/dL (65-110)
[2020-10-24 06:10] LABS: Hemoglobin A1C > 14.0 % (<5.7)
[2020-10-24 06:55] LABS: Glucose Point of Care 333 mg/dl (65-105)
[2020-10-24] MEDS: SODIUM CHLORIDE 0.9% IV 1,000 ML 150 ML IV CONT (07:48)
[2020-10-24] MEDS: KCL 20 MEQ/D5/0.45% SOD CHL 1,000 ML 150 ML IV CONT (08:24)
--- NOTE | 2020-10-24 08:29 | PC.NURSE ---
This patient, Karly Leslie, was admitted to Intensive Care Unit-1. Patient/family oriented to hospital policies and general routines including ID bracelet, bed and alarms, visiting hours, pain management, procedures, bathroom and other care routines, personal items, smoking policy, room service/diet, and visiting hours. Information on how to activate the Rapid Response Team has been discussed. Patient/Family are encouraged to report perceived risks to care and to ask questions if they do not understand what they are told or what they should do.
[2020-10-24 08:55] LABS: Glucose Point of Care 201 mg/dl (65-105)
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
[2020-10-24 09:30] LABS: Glucose Point of Care 193 mg/dl (65-105)
[2020-10-24] MEDS: DEXTROSE 5%/0.45% SOD CHL 1,000 ML 150 ML IV CONT (09:55)
[2020-10-24] MEDS: HYDROcodone/acetaminophen (*CRX) 5-325 MG TABLET 1 TAB PO ×2 (09:55→22:14)
[2020-10-24 10:42] LABS: Glucose Point of Care 199 mg/dl (65-105)
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
[2020-10-24 11:39] LABS: Glucose Point of Care 150 mg/dl (65-105)
[2020-10-24 12:39] LABS: Glucose Point of Care 135 mg/dl (65-105)
[2020-10-24 13:04] LABS: Anion Gap 9 mmol/L (8-16); Blood Urea Nitrogen 21 mg/dL (7-17); Carbon Dioxide 12 mmol/L (22-30); Chloride 116 mmol/L (98-107); Estimated CRCL calculation 78 ml/min; Estimated Glomerular Filt Rate > 60; Glucose 138 mg/dL (65-110); Potassium 4.5 mmol/L (3.4-5.0); Sodium 137 mmol/L (137-145)
[2020-10-24 14:01] LABS: Glucose Point of Care 116 mg/dl (65-105)
[2020-10-24] MEDS: SODIUM CHLORIDE 0.45% 1,000 ML 75 ML IV CONT (14:54)
[2020-10-24] MEDS: INSULIN GLARGINE (*BKC) 100 UNITS/ML 30 UNITS SUB-Q ×2 (14:55→20:28)
[2020-10-24 15:01] LABS: Glucose Point of Care 113 mg/dl (65-105)
[2020-10-24] MEDS: GLUCOSE ORAL GEL 15 GM OF GLUCSE IN 37.5 GM TUBE PO (16:42)
[2020-10-24 16:44] LABS: Glucose Point of Care < 20 mg/dl (65-105)
[2020-10-24 16:44] LABS: Glucose Point of Care 21 mg/dl (65-105)
[2020-10-24 17:09] LABS: Glucose Point of Care 92 mg/dl (65-105)
[2020-10-24 17:49] LABS: Anion Gap 8 mmol/L (8-16); Blood Urea Nitrogen 19 mg/dL (7-17); Calcium 8.8 mg/dL (8.4-10.2); Carbon Dioxide 16 mmol/L (22-30); Chloride 112 mmol/L (98-107); Estimated CRCL calculation 78 ml/min; Estimated Glomerular Filt Rate > 60; Glucose 115 mg/dL (65-110); Potassium 4.5 mmol/L (3.4-5.0); Sodium 136 mmol/L (137-145)
[2020-10-24 18:06] LABS: Glucose Point of Care 101 mg/dl (65-105)
--- NOTE | 2020-10-24 18:18 | PC.NURSE ---
Spoke with Dr. Miles regarding low blood sugar. Advised to discontinue insulin drip, and initiate moderate dose sliding scale. Continue to monitor closely.
[2020-10-24] MEDS: PRAMIPEXOLE 1 MG TABLET 3 MG PO (20:28)
[2020-10-24] MEDS: GABAPENTIN 300 MG CAPSULE PO (20:28)
[2020-10-24] MEDS: DONEPEZIL HCL 5 MG TABLET PO (20:28)
[2020-10-24 20:40] LABS: Glucose Point of Care 383 mg/dl (65-105)
[2020-10-25] VITALS (9 sets, daily range): BP systolic 81–139; BP diastolic 41–64; PULSE 65–94; RESP 16–20; TEMP 36.3–38.3; O2SAT 94–98
[2020-10-25 01:14] LABS: Glucose Point of Care 200 mg/dl (65-105)
[2020-10-25 05:19] LABS: Hematocrit 38.5 % (37.0-47.0); Hemoglobin 11.5 g/dL (12.0-15.0); Mean Corpuscular HGB Conc 29.9 g/dl (32-36); Mean Corpuscular Hemoglobin 31.7 pg (26-34); Mean Corpuscular Volume 106.1 fl (80-100); Mean Platelet Volume 10.4 fl (7.4-10.4); Platelet Count Result 168 k/mm3 (150-375); Red Blood Count 3.63 M/mm3 (4.2-5.4); Red Cell Distribution Width 14.5 % (11.5-14.5); White Blood Count 5.3 K/mm3 (4.5-10.0)
[2020-10-25 05:27] LABS: Alanine Aminotransferase 15 U/L (4-35); Albumin Level 3.1 g/dL (3.5-5.1); Alkaline Phosphatase 70 U/L (38-126); Anion Gap 7 mmol/L (8-16); Aspartate Amino Transferase 25 U/L (14-36); Bilirubin,Total 0.3 mg/dL (0.2-1.3); Blood Urea Nitrogen 13 mg/dL (7-17); Calcium 8.7 mg/dL (8.4-10.2); Carbon Dioxide 16 mmol/L (22-30); Chloride 110 mmol/L (98-107); Estimated CRCL calculation 95 ml/min; Estimated Glomerular Filt Rate > 60; Glucose 178 mg/dL (65-110); Magnesium 1.9 mg/dL (1.6-2.3); Phosphorus 1.4 mg/dL (2.5-4.5); Sodium 133 mmol/L (137-145)
[2020-10-25 07:56] LABS: Glucose Point of Care 167 mg/dl (65-105)
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
[2020-10-25] MEDS: IBUPROFEN 400 MG TABLET PO (08:56)
[2020-10-25] MEDS: ENOXAPARIN 40 MG/0.4 ML SYRINGE SUB-Q (08:57)
--- NOTE | 2020-10-25 10:19 | PC.NURSE ---
Left message with assistant health educator regarding consult.
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
[2020-10-25 11:25] LABS: Basophils Percent Auto 0.2 % (0.2-1.2); Eosinophils Percent Auto 0.2 % (0-4.4); Hematocrit 37.6 % (37.0-47.0); Hemoglobin 11.8 g/dL (12.0-15.0); Immature Granulocyte Absolute 0.03 K/mm3 (0.00-0.031); Immature Granulocyte Percent A 0.5 % (0-0.5); Lymphocytes Absolute Auto 0.45 K/mm3 (0.9-3.2); Mean Corpuscular HGB Conc 31.4 g/dl (32-36); Mean Corpuscular Hemoglobin 31.4 pg (26-34); Mean Platelet Volume 9.7 fl (7.4-10.4); Monocytes Absolute Auto 0.3 K/mm3 (0.1-0.6); Neutrophils Absolute Auto 5.6 K/mm3 (1.3-6.7); Neutrophils Percent Auto 87.1 % (45.5-73.1); Platelet Count Result 155 k/mm3 (150-375); Red Blood Count 3.76 M/mm3 (4.2-5.4); Red Cell Distribution Width 14.4 % (11.5-14.5); White Blood Count 6.5 K/mm3 (4.5-10.0)
[2020-10-25 11:28] LABS: Fractional Inspired Oxygen 21 %; HCO3 VBG 17.1 mEq/l (24.0-30.0); pH VBG 7.381 (7.300-7.400)
[2020-10-25 11:30] LABS: PCO2 VBG 29.5 mmHg (42.0-48.0)
[2020-10-25 11:31] LABS: Device ROOM AIR
[2020-10-25 11:34] LABS: Anion Gap 7 mmol/L (8-16); Blood Urea Nitrogen 12 mg/dL (7-17); Calcium 8.8 mg/dL (8.4-10.2); Carbon Dioxide 15 mmol/L (22-30); Chloride 109 mmol/L (98-107); Estimated CRCL calculation 79 ml/min; Estimated Glomerular Filt Rate > 60; Glucose 207 mg/dL (65-110); Potassium 3.5 mmol/L (3.4-5.0); Sodium 131 mmol/L (137-145)
[2020-10-25 11:49] LABS: Glucose Point of Care 206 mg/dl (65-105)
[2020-10-25] MEDS: INSULIN ASPART (*BKC) 100 UNITS/ML SUB-Q ×2 (12:03→17:26)
[2020-10-25] MEDS: GABAPENTIN 300 MG CAPSULE PO ×2 (12:03→17:22)
--- NOTE | 2020-10-25 14:08 | PC.NURSE ---
This patient, Karly Leslie, was received from ICU on 10/25/20 at 1408. Patient/family oriented to unit policies and routines
--- NOTE | 2020-10-25 14:54 | PC.NURSE ---
This patient, Karly Leslie, was transferred to [[id number] ] on 10/25/20 at 1350. Personal belongings sent with patient. Report given to [Cinthia CHRISTIANSON ]. Appropriate documentation sent with patient.
[2020-10-25 17:36] LABS: Glucose Point of Care 295 mg/dl (65-105)
[2020-10-25] MEDS: INSULIN GLARGINE (*BKC) 100 UNITS/ML 40 UNITS SUB-Q (20:13)
[2020-10-25] MEDS: DONEPEZIL HCL 5 MG TABLET PO (20:16)
[2020-10-25] MEDS: PRAMIPEXOLE 1 MG TABLET 3 MG PO (20:16)
[2020-10-25] MEDS: metFORMIN HCL XR 500 MG TAB.SR.24H PO (20:17)
[2020-10-25 20:38] LABS: Glucose Point of Care 257 mg/dl (65-105)
[2020-10-26] VITALS (11 sets, daily range): BP systolic 102–136; BP diastolic 51–66; PULSE 66–86; RESP 16–20; TEMP 36.1–38.8; O2SAT 92–100; BMI 30.9
[2020-10-26] MEDS: HYDROcodone/acetaminophen (*CRX) 5-325 MG TABLET 1 TAB PO (04:42)
[2020-10-26 06:00] LABS: Hematocrit 34.2 % (37.0-47.0); Hemoglobin 10.9 g/dL (12.0-15.0); Mean Corpuscular HGB Conc 31.9 g/dl (32-36); Mean Corpuscular Hemoglobin 30.9 pg (26-34); Mean Corpuscular Volume 96.9 fl (80-100); Mean Platelet Volume 10.2 fl (7.4-10.4); Platelet Count Result 142 k/mm3 (150-375); Red Blood Count 3.53 M/mm3 (4.2-5.4); Red Cell Distribution Width 14.3 % (11.5-14.5); White Blood Count 3.5 K/mm3 (4.5-10.0)
[2020-10-26 06:11] LABS: Alanine Aminotransferase 14 U/L (4-35); Albumin Level 3.1 g/dL (3.5-5.1); Alkaline Phosphatase 75 U/L (38-126); Anion Gap 5 mmol/L (8-16); Aspartate Amino Transferase 29 U/L (14-36); Bilirubin,Total 0.1 mg/dL (0.2-1.3); Blood Urea Nitrogen 10 mg/dL (7-17); Carbon Dioxide 20 mmol/L (22-30); Chloride 103 mmol/L (98-107); Estimated CRCL calculation 79 ml/min; Estimated Glomerular Filt Rate > 60; Glucose 117 mg/dL (65-110); Magnesium 1.9 mg/dL (1.6-2.3); Phosphorus 1.4 mg/dL (2.5-4.5); Potassium 3.1 mmol/L (3.4-5.0); Sodium 128 mmol/L (137-145)
[2020-10-26 06:12] LABS: Glucose Point of Care 102 mg/dl (65-105)
[2020-10-26 07:58] LABS: Glucose Point of Care 117 mg/dl (65-105)
[2020-10-26] MEDS: GABAPENTIN 300 MG CAPSULE PO ×2 (08:49→16:34)
[2020-10-26] MEDS: ENOXAPARIN 40 MG/0.4 ML SYRINGE SUB-Q (08:49)
[2020-10-26] MEDS: metFORMIN HCL XR 500 MG TAB.SR.24H 1000 MG PO (08:49)
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
[2020-10-26 12:25] LABS: Glucose Point of Care 149 mg/dl (65-105)
[2020-10-26 17:57] LABS: Glucose Point of Care 289 mg/dl (65-105)
[2020-10-26] MEDS: INSULIN ASPART (*BKC) 100 UNITS/ML SUB-Q (17:59)
[2020-10-26] MEDS: metFORMIN HCL XR 500 MG TAB.SR.24H PO (20:57)
[2020-10-26] MEDS: PRAMIPEXOLE 1 MG TABLET 3 MG PO (20:58)
[2020-10-26] MEDS: INSULIN GLARGINE (*BKC) 100 UNITS/ML 40 UNITS SUB-Q (21:00)
[2020-10-26] MEDS: DONEPEZIL HCL 5 MG TABLET PO (21:03)
[2020-10-26 21:50] LABS: Glucose Point of Care 210 mg/dl (65-105)
--- NOTE | 2020-10-26 23:06 | PC.NURSE ---
Called Dr Steward,informed pt having harsh cough,Robitussin ordered.
[2020-10-26 23:32] LABS: SARS-CoV-2 RNA PCR Positive
[2020-10-26] MEDS: guaiFENesin/DEXTROMETHORPHAN 10 ML UDC PO (23:35)
[2020-10-27 04:00] VITALS: BP 107/58; PULSE 72; RESP 18; TEMP 37.6; O2SAT 98
[2020-10-27] MEDS: guaiFENesin/DEXTROMETHORPHAN 10 ML UDC PO ×2 (06:48→22:57)
[2020-10-27 07:05] LABS: Hematocrit 35.7 % (37.0-47.0); Hemoglobin 11.2 g/dL (12.0-15.0); Immature Platelet Fraction Pct 3.4 % (0.9-11.2); Mean Corpuscular HGB Conc 31.4 g/dl (32-36); Mean Corpuscular Hemoglobin 30.7 pg (26-34); Mean Corpuscular Volume 97.8 fl (80-100); Mean Platelet Volume 10.3 fl (7.4-10.4); Platelet Count Result 120 k/mm3 (150-375); Red Blood Count 3.65 M/mm3 (4.2-5.4); Red Cell Distribution Width 14.2 % (11.5-14.5); White Blood Count 3.2 K/mm3 (4.5-10.0)
[2020-10-27 07:31] LABS: Alanine Aminotransferase 15 U/L (4-35); Albumin Level 3.3 g/dL (3.5-5.1); Alkaline Phosphatase 81 U/L (38-126); Anion Gap 7 mmol/L (8-16); Aspartate Amino Transferase 51 U/L (14-36); Bilirubin,Total 0.1 mg/dL (0.2-1.3); Blood Urea Nitrogen 8 mg/dL (7-17); Calcium 9.2 mg/dL (8.4-10.2); Carbon Dioxide 21 mmol/L (22-30); Chloride 104 mmol/L (98-107); Estimated CRCL calculation 96 ml/min; Estimated Glomerular Filt Rate > 60; Glucose 173 mg/dL (65-110); Phosphorus 1.8 mg/dL (2.5-4.5); Potassium 3.2 mmol/L (3.4-5.0); Sodium 132 mmol/L (137-145)
[2020-10-27 08:00] VITALS: BP 154/90; PULSE 87; RESP 20; TEMP 37.6; O2SAT 94
[2020-10-27 08:25] LABS: Glucose Point of Care 174 mg/dl (65-105)
[2020-10-27] MEDS: ENOXAPARIN 40 MG/0.4 ML SYRINGE SUB-Q (10:13)
[2020-10-27] MEDS: GABAPENTIN 300 MG CAPSULE PO ×2 (10:14→17:55)
[2020-10-27 10:15] VITALS: PULSE 78; RESP 16; O2SAT 92
[2020-10-27] MEDS: metFORMIN HCL XR 500 MG TAB.SR.24H 1000 MG PO ×2 (10:15→20:45)
[2020-10-27] MEDS: ONDANSETRON INJ 4 MG/2 ML VIAL IV PUSH (10:21)
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
[2020-10-27 11:57] LABS: Glucose Point of Care 171 mg/dl (65-105)
[2020-10-27 12:00] VITALS: BP 116/54; PULSE 78; RESP 16; TEMP 38.3; O2SAT 92
[2020-10-27] MEDS: SODIUM CHLORIDE 0.9% IV 1,000 ML 75 ML IV CONT (12:17)
[2020-10-27] MEDS: BENZONATATE 100 MG CAPSULE 200 MG PO ×2 (13:34→17:55)
[2020-10-27 14:07] LABS: Glucose Point of Care 196 mg/dl (65-105)
[2020-10-27 15:28] LABS: INR 0.9; Prothrombin Time 12.3 Seconds (11.1-14.7)
[2020-10-27 16:00] VITALS: BP 112/48; PULSE 74; RESP 20; TEMP 37.6; O2SAT 98
[2020-10-27] MEDS: REMDESIVIR 200 MG/NS 250 ML 200 MG/250 ML BAG 250 MG IVPB (16:28)
[2020-10-27] MEDS: POTASSIUM/PHOSPHORUS/SODIUM 1.5 GM PACKET 1 PACKET PO (17:56)
[2020-10-27] MEDS: INSULIN ASPART (*BKC) 100 UNITS/ML SUB-Q (18:12)
[2020-10-27 18:52] LABS: Glucose Point of Care 205 mg/dl (65-105)
[2020-10-27] MEDS: PRAMIPEXOLE 1 MG TABLET 3 MG PO (20:44)
[2020-10-27] MEDS: DONEPEZIL HCL 5 MG TABLET PO (20:45)
[2020-10-27] MEDS: INSULIN GLARGINE (*BKC) 100 UNITS/ML 45 UNITS SUB-Q (20:46)
[2020-10-27] MEDS: metFORMIN HCL XR 500 MG TAB.SR.24H PO (20:49)
[2020-10-27 20:51] VITALS: BP 106/57; PULSE 75; RESP 18; TEMP 35.9; O2SAT 92
[2020-10-27 22:17] LABS: Glucose Point of Care 305 mg/dl (65-105)
[2020-10-28] VITALS (8 sets, daily range): BP systolic 101–125; BP diastolic 51–85; PULSE 61–73; RESP 16–20; TEMP 36.1–37; O2SAT 92–100
[2020-10-28] MEDS: SODIUM CHLORIDE 0.9% IV 1,000 ML 75 ML IV CONT (06:11)
[2020-10-28 06:52] LABS: Hematocrit 34.1 % (37.0-47.0); Hemoglobin 11.2 g/dL (12.0-15.0); Immature Platelet Fraction Pct 4.4 % (0.9-11.2); Mean Corpuscular HGB Conc 32.8 g/dl (32-36); Mean Corpuscular Hemoglobin 31.2 pg (26-34); Platelet Count Result 129 k/mm3 (150-375); Red Blood Count 3.59 M/mm3 (4.2-5.4); Red Cell Distribution Width 14.2 % (11.5-14.5); White Blood Count 2.7 K/mm3 (4.5-10.0)
[2020-10-28 07:37] LABS: Alanine Aminotransferase 13 U/L (4-35); Albumin Level 3.1 g/dL (3.5-5.1); Alkaline Phosphatase 77 U/L (38-126); Anion Gap 6 mmol/L (8-16); Aspartate Amino Transferase 29 U/L (14-36); Bilirubin,Total 0.3 mg/dL (0.2-1.3); Blood Urea Nitrogen 10 mg/dL (7-17); CRP 16.9 mg/dL (<1.0); Calcium 8.8 mg/dL (8.4-10.2); Carbon Dioxide 20 mmol/L (22-30); Chloride 108 mmol/L (98-107); Estimated CRCL calculation 96 ml/min; Estimated Glomerular Filt Rate > 60; Glucose 251 mg/dL (65-110); Phosphorus 2.2 mg/dL (2.5-4.5); Potassium 3.8 mmol/L (3.4-5.0); Sodium 134 mmol/L (137-145)
[2020-10-28] MEDS: INSULIN ASPART (*BKC) 100 UNITS/ML SUB-Q ×3 (08:13→17:38)
[2020-10-28] MEDS: BENZONATATE 100 MG CAPSULE 200 MG PO ×3 (08:14→17:37)
[2020-10-28] MEDS: ENOXAPARIN 40 MG/0.4 ML SYRINGE SUB-Q (08:14)
[2020-10-28] MEDS: GABAPENTIN 300 MG CAPSULE PO ×2 (08:15→17:38)
[2020-10-28] MEDS: POTASSIUM/PHOSPHORUS/SODIUM 1.5 GM PACKET 1 PACKET PO ×2 (08:15→17:38)
[2020-10-28] MEDS: guaiFENesin/DEXTROMETHORPHAN 10 ML UDC PO (08:21)
[2020-10-28 09:31] LABS: INR 0.8; Prothrombin Time 11.5 Seconds (11.1-14.7)
[2020-10-28 10:17] LABS: Glucose Point of Care 242 mg/dl (65-105)
[2020-10-28] MEDS: REMDESIVIR 100 MG/NS 250 ML 100 MG/250 ML BAG 250 MG IVPB (10:19)
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
[2020-10-28 12:52] LABS: Glucose Point of Care 242 mg/dl (65-105)
[2020-10-28 17:38] LABS: Glucose Point of Care 284 mg/dl (65-105)
[2020-10-28] MEDS: DONEPEZIL HCL 5 MG TABLET PO (20:27)
[2020-10-28] MEDS: metFORMIN HCL XR 500 MG TAB.SR.24H PO (20:28)
[2020-10-28] MEDS: PRAMIPEXOLE 1 MG TABLET 3 MG PO (20:29)
[2020-10-28] MEDS: INSULIN GLARGINE (*BKC) 100 UNITS/ML 50 UNITS SUB-Q (20:34)
[2020-10-28 23:30] LABS: Glucose Point of Care 273 mg/dl (65-105)
[2020-10-29] VITALS: BP 100/55; PULSE 60; RESP 20; TEMP 36.3; O2SAT 100
[2020-10-29 04:00] VITALS: BP 93/46; PULSE 56; RESP 20; TEMP 36.2; O2SAT 97
[2020-10-29 06:43] LABS: Glucose Point of Care 86 mg/dl (65-105)
[2020-10-29 07:17] LABS: Hematocrit 33.6 % (37.0-47.0); Mean Corpuscular HGB Conc 32.7 g/dl (32-36); Mean Corpuscular Volume 97.7 fl (80-100); Mean Platelet Volume 9.9 fl (7.4-10.4); Platelet Count Result 186 k/mm3 (150-375); Red Blood Count 3.44 M/mm3 (4.2-5.4); Red Cell Distribution Width 14.5 % (11.5-14.5)
[2020-10-29 07:29] LABS: INR 0.9; Prothrombin Time 12.2 Seconds (11.1-14.7)
[2020-10-29 07:41] LABS: Alanine Aminotransferase 14 U/L (4-35); Albumin Level 2.9 g/dL (3.5-5.1); Alkaline Phosphatase 66 U/L (38-126); Anion Gap 5 mmol/L (8-16); Aspartate Amino Transferase 27 U/L (14-36); Bilirubin,Total 0.3 mg/dL (0.2-1.3); Blood Urea Nitrogen 15 mg/dL (7-17); CRP 5.9 mg/dL (<1.0); Calcium 9.1 mg/dL (8.4-10.2); Carbon Dioxide 23 mmol/L (22-30); Chloride 111 mmol/L (98-107); Estimated CRCL calculation 95 ml/min; Estimated Glomerular Filt Rate > 60; Glucose 71 mg/dL (65-110); Phosphorus 2.3 mg/dL (2.5-4.5); Potassium 3.2 mmol/L (3.4-5.0); Sodium 139 mmol/L (137-145)
[2020-10-29 08:00] VITALS: BP 122/71; PULSE 68; RESP 14; TEMP 36.8; O2SAT 99
[2020-10-29] MEDS: POTASSIUM/PHOSPHORUS/SODIUM 1.5 GM PACKET 1 PACKET PO ×2 (08:32→17:20)
[2020-10-29] MEDS: BENZONATATE 100 MG CAPSULE 200 MG PO ×2 (08:32→12:54)
[2020-10-29] MEDS: GABAPENTIN 300 MG CAPSULE PO ×2 (08:33→17:20)
[2020-10-29] MEDS: ENOXAPARIN 40 MG/0.4 ML SYRINGE SUB-Q (08:34)
[2020-10-29] MEDS: guaiFENesin/DEXTROMETHORPHAN 10 ML UDC PO ×2 (08:42→21:32)
[2020-10-29 08:45] LABS: Glucose Point of Care 98 mg/dl (65-105)
[2020-10-29 09:37] LABS: Glucose Point of Care 54 mg/dl (65-105)
[2020-10-29] MEDS: REMDESIVIR 100 MG/NS 250 ML 100 MG/250 ML BAG 125 MG IVPB (10:07)
[2020-10-29 12:00] VITALS: BP 103/61; PULSE 77; RESP 16; TEMP 36.8; O2SAT 96
--- NOTE | 2020-10-29 12:12 | PCDIET ---
Nutrition Follow-Up Complete: Food and Nutrition Knowledge Deficit as related to uncontrolled DM as evidenced by HgbA1c >14.0% Adequate Intake of at least 75% of meals/supplements Goal: Approaching goal. Continue goal. Pt current nutrition is consistent carb/ glucerna BID Nutrition recommendation: agree Last recorded weight is 72 kg, no new weight Bowel Motility: BM+ yesterday Labs Reviewed:Glucose 54/98, C reactive 5.9, PO4 2.3, K 3.2, Albumin 2.9, Hgb/Hct 11.0/33.6 Meds Noted: Decadron, Lovenox, Metformin, Zofran, Remdesivir Additional Notes: Pt on appropriate diet, consistent carb, with additional kcals from Glucerna offered BID. Pt intakes are averaging 50%of meals. N new wt to monitor wt changes. Bowels are moving. We will continue to monitor for adequate PO intake every five days.
[2020-10-29 12:17] LABS: Glucose Point of Care 49 mg/dl (65-105)
[2020-10-29 13:04] LABS: Glucose Point of Care 128 mg/dl (65-105)
[2020-10-29 16:00] VITALS: BP 118/92; PULSE 69; RESP 16; TEMP 37; O2SAT 98
[2020-10-29 17:42] LABS: Glucose Point of Care 106 mg/dl (65-105)
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
[2020-10-29 20:00] VITALS: BP 90/45; PULSE 71; RESP 18; TEMP 36.3; O2SAT 96
[2020-10-29] MEDS: DONEPEZIL HCL 5 MG TABLET PO (21:22)
[2020-10-29] MEDS: metFORMIN HCL XR 500 MG TAB.SR.24H PO (21:23)
[2020-10-29] MEDS: PRAMIPEXOLE 1 MG TABLET 3 MG PO (21:23)
[2020-10-29] MEDS: INSULIN GLARGINE (*BKC) 100 UNITS/ML 20 UNITS SUB-Q (21:24)
[2020-10-29] MEDS: MELATONIN 3 MG TABLET PO (21:24)
[2020-10-29 22:21] LABS: Glucose Point of Care 265 mg/dl (65-105)
[2020-10-30] VITALS: BP 103/55; PULSE 51; RESP 18; TEMP 36.2; O2SAT 94
[2020-10-30 04:00] VITALS: BP 94/54; PULSE 63; RESP 18; TEMP 36.6; O2SAT 97
[2020-10-30 06:56] LABS: INR 0.9; Prothrombin Time 11.9 Seconds (11.1-14.7)
[2020-10-30 08:00] VITALS: BP 101/58; PULSE 60; RESP 20; TEMP 36.8; O2SAT 97
[2020-10-30 08:11] LABS: Alanine Aminotransferase 16 U/L (4-35); Estimated CRCL calculation 96 ml/min; Estimated Glomerular Filt Rate > 60
[2020-10-30] MEDS: ENOXAPARIN 40 MG/0.4 ML SYRINGE SUB-Q (08:27)
[2020-10-30] MEDS: GABAPENTIN 300 MG CAPSULE PO ×2 (08:28→17:13)
[2020-10-30] MEDS: metFORMIN HCL XR 500 MG TAB.SR.24H 1000 MG PO (08:28)
[2020-10-30 08:40] LABS: Glucose Point of Care 41 mg/dl (65-105)
[2020-10-30 08:40] LABS: Glucose Point of Care 73 mg/dl (65-105)
[2020-10-30] MEDS: REMDESIVIR 100 MG/NS 250 ML 100 MG/250 ML BAG 250 MG IVPB (10:34)
[2020-10-30 12:00] VITALS: BP 109/57; PULSE 65; RESP 16; TEMP 37.1; O2SAT 96
[2020-10-30 12:07] LABS: Glucose Point of Care 73 mg/dl (65-105)
[2020-10-30 16:00] VITALS: BP 104/61; PULSE 61; RESP 16; TEMP 36.6; O2SAT 95
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
[2020-10-30 17:07] LABS: Glucose Point of Care 119 mg/dl (65-105)
[2020-10-30 17:15] LABS: Anion Gap 8 mmol/L (8-16); Blood Urea Nitrogen 11 mg/dL (7-17); Carbon Dioxide 22 mmol/L (22-30); Chloride 104 mmol/L (98-107); Estimated CRCL calculation 96 ml/min; Estimated Glomerular Filt Rate > 60; Glucose 143 mg/dL (65-110); Potassium 3.5 mmol/L (3.4-5.0); Sodium 134 mmol/L (137-145)
[2020-10-30 20:00] VITALS: BP 129/98; PULSE 67; RESP 20; TEMP 36.6; O2SAT 98
[2020-10-30] MEDS: PRAMIPEXOLE 1 MG TABLET 3 MG PO (23:15)
[2020-10-30] MEDS: DONEPEZIL HCL 5 MG TABLET PO (23:15)
[2020-10-30] MEDS: MELATONIN 3 MG TABLET PO (23:16)
[2020-10-30] MEDS: metFORMIN HCL XR 500 MG TAB.SR.24H PO (23:16)
[2020-10-30] MEDS: INSULIN GLARGINE (*BKC) 100 UNITS/ML 10 UNITS SUB-Q (23:17)
[2020-10-30] MEDS: guaiFENesin/DEXTROMETHORPHAN 10 ML UDC PO (23:40)
[2020-10-30] MEDS: HYDROcodone/acetaminophen (*CRX) 5-325 MG TABLET 1 TAB PO (23:40)
[2020-10-30 23:47] LABS: Glucose Point of Care 210 mg/dl (65-105)
[2020-10-31] VITALS (7 sets, daily range): BP systolic 96–119; BP diastolic 61–74; PULSE 61–69; RESP 16–22; TEMP 35.6–37.3; O2SAT 92–98
[2020-10-31 07:53] LABS: Glucose Point of Care 62 mg/dl (65-105)
[2020-10-31] MEDS: ENOXAPARIN 40 MG/0.4 ML SYRINGE SUB-Q (09:07)
[2020-10-31] MEDS: GABAPENTIN 300 MG CAPSULE PO ×2 (09:08→17:26)
[2020-10-31] MEDS: metFORMIN HCL XR 500 MG TAB.SR.24H 1000 MG PO (09:08)
[2020-10-31 09:52] LABS: Basophils Percent Auto 0.2 % (0.2-1.2); Eosinophils Percent Auto 0.2 % (0-4.4); Hematocrit 35.7 % (37.0-47.0); Hemoglobin 11.4 g/dL (12.0-15.0); Immature Granulocyte Percent A 1.6 % (0-0.5); Lymphocytes Absolute Auto 1.15 K/mm3 (0.9-3.2); Lymphocytes Percent Auto 18.8 % (18.3-44.2); Mean Corpuscular HGB Conc 31.9 g/dl (32-36); Mean Corpuscular Hemoglobin 30.6 pg (26-34); Mean Corpuscular Volume 95.7 fl (80-100); Mean Platelet Volume 9.3 fl (7.4-10.4); Monocytes Absolute Auto 0.6 K/mm3 (0.1-0.6); Neutrophils Absolute Auto 4.3 K/mm3 (1.3-6.7); Neutrophils Percent Auto 70.2 % (45.5-73.1); Platelet Count Result 290 k/mm3 (150-375); Red Blood Count 3.73 M/mm3 (4.2-5.4); Red Cell Distribution Width 14.6 % (11.5-14.5); White Blood Count 6.1 K/mm3 (4.5-10.0)
[2020-10-31 09:56] LABS: INR 0.9; Prothrombin Time 12.4 Seconds (11.1-14.7)
[2020-10-31 10:04] LABS: Alanine Aminotransferase 16 U/L (4-35); Anion Gap 7 mmol/L (8-16); Blood Urea Nitrogen 13 mg/dL (7-17); Calcium 8.9 mg/dL (8.4-10.2); Carbon Dioxide 23 mmol/L (22-30); Chloride 105 mmol/L (98-107); Estimated CRCL calculation 96 ml/min; Estimated Glomerular Filt Rate > 60; Glucose 101 mg/dL (65-110); Sodium 135 mmol/L (137-145)
[2020-10-31] MEDS: REMDESIVIR 100 MG/NS 250 ML 100 MG/250 ML BAG 250 MG IVPB (11:30)
[2020-10-31 11:46] LABS: Glucose Point of Care 64 mg/dl (65-105)
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
[2020-10-31] MEDS: ONDANSETRON INJ 4 MG/2 ML VIAL IV PUSH (12:10)
[2020-10-31] MEDS: POTASSIUM CHLORIDE 20 MEQ PACKET (FOR LIQUID) 40 MEQ PO ×2 (13:26→17:26)
[2020-10-31 17:06] LABS: Glucose Point of Care 230 mg/dl (65-105)
[2020-10-31] MEDS: ONDANSETRON HCL ODT 4 MG TABLET PO (17:24)
[2020-10-31] MEDS: INSULIN ASPART (*BKC) 100 UNITS/ML SUB-Q (17:25)
[2020-10-31] MEDS: MELATONIN 3 MG TABLET PO (20:55)
[2020-10-31] MEDS: metFORMIN HCL XR 500 MG TAB.SR.24H PO (20:56)
[2020-10-31] MEDS: PRAMIPEXOLE 1 MG TABLET 3 MG PO (20:56)
[2020-10-31] MEDS: DONEPEZIL HCL 5 MG TABLET PO (20:56)
[2020-10-31 21:52] LABS: Glucose Point of Care 203 mg/dl (65-105)
[2020-11-01] VITALS: BP 112/61; PULSE 61; RESP 20; TEMP 37; O2SAT 99
[2020-11-01 04:00] VITALS: BP 121/91; PULSE 63; RESP 20; TEMP 36.6; O2SAT 97
[2020-11-01 07:08] LABS: Basophils Percent Auto 0.4 % (0.2-1.2); Eosinophils Percent Auto 0.3 % (0-4.4); Hematocrit 38.6 % (37.0-47.0); Hemoglobin 12.2 g/dL (12.0-15.0); Immature Granulocyte Absolute 0.12 K/mm3 (0.00-0.031); Immature Granulocyte Percent A 1.5 % (0-0.5); Lymphocytes Absolute Auto 1.21 K/mm3 (0.9-3.2); Lymphocytes Percent Auto 15.4 % (18.3-44.2); Mean Corpuscular HGB Conc 31.6 g/dl (32-36); Mean Corpuscular Hemoglobin 30.3 pg (26-34); Mean Platelet Volume 9.5 fl (7.4-10.4); Monocytes Absolute Auto 0.7 K/mm3 (0.1-0.6); Monocytes Percent Auto 9.3 % (2.6-8.5); Neutrophils Absolute Auto 5.7 K/mm3 (1.3-6.7); Neutrophils Percent Auto 73.1 % (45.5-73.1); Platelet Count Result 381 k/mm3 (150-375); Red Blood Count 4.02 M/mm3 (4.2-5.4); Red Cell Distribution Width 14.6 % (11.5-14.5); White Blood Count 7.8 K/mm3 (4.5-10.0)
[2020-11-01 07:12] LABS: Anion Gap 4 mmol/L (8-16); Blood Urea Nitrogen 12 mg/dL (7-17); Calcium 9.2 mg/dL (8.4-10.2); Carbon Dioxide 25 mmol/L (22-30); Chloride 104 mmol/L (98-107); Estimated CRCL calculation 96 ml/min; Estimated Glomerular Filt Rate > 60; Glucose 204 mg/dL (65-110); Potassium 4.1 mmol/L (3.4-5.0); Sodium 133 mmol/L (137-145)
[2020-11-01 07:17] LABS: INR 0.9; Prothrombin Time 12.2 Seconds (11.1-14.7)
[2020-11-01 08:00] VITALS: BP 122/54; PULSE 59; RESP 18; TEMP 35.8; O2SAT 95
[2020-11-01] MEDS: ONDANSETRON HCL ODT 4 MG TABLET PO ×3 (08:04→16:29)
[2020-11-01] MEDS: ENOXAPARIN 40 MG/0.4 ML SYRINGE SUB-Q (08:05)
[2020-11-01] MEDS: metFORMIN HCL XR 500 MG TAB.SR.24H 1000 MG PO (08:05)
[2020-11-01] MEDS: GABAPENTIN 300 MG CAPSULE PO ×2 (08:05→16:29)
[2020-11-01 08:13] LABS: Glucose Point of Care 197 mg/dl (65-105)
--- NOTE | 2020-11-01 08:34 | ECG_ITS ---
Measurements Intervals [place] Rate: 72 P: 38 OR: 125 QRS: 17 QRSD: 93 T: 11 QT: 377 QTc: 413 Interpretive Statements SINUS RHYTHM WITH SINUS ARRHYTHMIA NONSPECIFIC T-WAVE ABNORMALITY- INFERIOR LEADS BORDERLINE ECG Electronically Signed On 11-01-2020 12:15:50 CDT by Unruly Panchal D.O.
--- NOTE | 2020-11-01 10:47 | PCPTNOTE ---
Attempted to see pt. for PT treatment this date. Pt. declined treatment reporting she has been up with diarrhea and was just not feeling like she could participate today. Will check on pt. tomorrow.
[2020-11-01 11:35] LABS: Glucose Point of Care 261 mg/dl (65-105)
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
[2020-11-01] MEDS: INSULIN ASPART (*BKC) 100 UNITS/ML SUB-Q ×2 (11:52→16:29)
[2020-11-01 12:00] VITALS: BP 120/72; PULSE 60; RESP 20; TEMP 35.9; O2SAT 96
[2020-11-01 15:59] LABS: Alanine Aminotransferase 11 U/L (4-35)
[2020-11-01 16:00] VITALS: BP 130/74; PULSE 97; RESP 18; TEMP 35.9; O2SAT 95
[2020-11-01] MEDS: REMDESIVIR 100 MG/NS 250 ML 100 MG/250 ML BAG 250 MG IVPB (16:27)
[2020-11-01 17:03] LABS: Glucose Point of Care 289 mg/dl (65-105)
[2020-11-01 20:00] VITALS: BP 117/59; PULSE 65; RESP 18; TEMP 36.7; O2SAT 95
[2020-11-01] MEDS: DONEPEZIL HCL 5 MG TABLET PO (21:13)
[2020-11-01] MEDS: PRAMIPEXOLE 1 MG TABLET 3 MG PO (21:13)
[2020-11-01] MEDS: metFORMIN HCL XR 500 MG TAB.SR.24H PO (21:13)
[2020-11-01] MEDS: MELATONIN 3 MG TABLET PO (21:13)
[2020-11-01] MEDS: INSULIN GLARGINE (*BKC) 100 UNITS/ML 10 UNITS SUB-Q (21:14)
[2020-11-01 22:59] LABS: Glucose Point of Care 425 mg/dl (65-105)
[2020-11-02] VITALS: BP 124/58; PULSE 63; RESP 18; TEMP 37; O2SAT 93
[2020-11-02] MEDS: guaiFENesin/CODEINE (*CRX) 200/20 MG 10 ML SYRUP PO (00:27)
[2020-11-02 04:00] VITALS: BP 117/64; PULSE 59; RESP 18; TEMP 36.7; O2SAT 97
[2020-11-02] MEDS: ONDANSETRON HCL ODT 4 MG TABLET PO ×2 (06:09→12:05)
[2020-11-02 07:29] LABS: Basophils Percent Auto 0.4 % (0.2-1.2); Eosinophils Percent Auto 0.8 % (0-4.4); Hematocrit 34.4 % (37.0-47.0); Hemoglobin 10.9 g/dL (12.0-15.0); Immature Granulocyte Absolute 0.09 K/mm3 (0.00-0.031); Immature Granulocyte Percent A 1.8 % (0-0.5); Lymphocytes Absolute Auto 0.98 K/mm3 (0.9-3.2); Lymphocytes Percent Auto 19.4 % (18.3-44.2); Mean Corpuscular HGB Conc 31.7 g/dl (32-36); Mean Corpuscular Hemoglobin 31.4 pg (26-34); Mean Corpuscular Volume 99.1 fl (80-100); Mean Platelet Volume 9.2 fl (7.4-10.4); Monocytes Absolute Auto 0.5 K/mm3 (0.1-0.6); Monocytes Percent Auto 10.5 % (2.6-8.5); Neutrophils Absolute Auto 3.4 K/mm3 (1.3-6.7); Neutrophils Percent Auto 67.1 % (45.5-73.1); Platelet Count Result 411 k/mm3 (150-375); Red Blood Count 3.47 M/mm3 (4.2-5.4); Red Cell Distribution Width 14.9 % (11.5-14.5); White Blood Count 5.1 K/mm3 (4.5-10.0)
[2020-11-02 07:35] LABS: INR 1.1; Prothrombin Time 13.8 Seconds (11.1-14.7)
[2020-11-02 07:46] LABS: Alanine Aminotransferase 10 U/L (4-35); Anion Gap 5 mmol/L (8-16); Blood Urea Nitrogen 13 mg/dL (7-17); Carbon Dioxide 26 mmol/L (22-30); Chloride 102 mmol/L (98-107); Estimated CRCL calculation 69 ml/min; Estimated Glomerular Filt Rate > 60; Glucose 367 mg/dL (65-110); Potassium 4.8 mmol/L (3.4-5.0); Sodium 133 mmol/L (137-145)
[2020-11-02 08:00] VITALS: BP 114/57; PULSE 57; RESP 16; TEMP 35.7; O2SAT 94
[2020-11-02] MEDS: ENOXAPARIN 40 MG/0.4 ML SYRINGE SUB-Q (08:10)
[2020-11-02] MEDS: metFORMIN HCL XR 500 MG TAB.SR.24H 1000 MG PO (08:11)
[2020-11-02] MEDS: GABAPENTIN 300 MG CAPSULE PO ×2 (08:11→16:09)
[2020-11-02 08:19] LABS: Glucose Point of Care 357 mg/dl (65-105)
[2020-11-02] MEDS: INSULIN ASPART (*BKC) 100 UNITS/ML SUB-Q ×3 (09:02→16:06)
[2020-11-02] MEDS: REMDESIVIR 100 MG/NS 250 ML 100 MG/250 ML BAG 250 MG IVPB (10:41)
[2020-11-02 11:39] LABS: Glucose Point of Care 292 mg/dl (65-105)
[2020-11-02 12:00] VITALS: BP 140/88; PULSE 55; RESP 20; TEMP 35.8; O2SAT 95
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
[2020-11-02 15:37] LABS: Glucose Point of Care 278 mg/dl (65-105)
[2020-11-02 16:00] VITALS: BP 135/66; PULSE 65; RESP 20; TEMP 36.1; O2SAT 98
[2020-11-02 20:00] VITALS: BP 96/52; PULSE 62; RESP 18; TEMP 36.6; O2SAT 92
[2020-11-02] MEDS: PRAMIPEXOLE 1 MG TABLET 3 MG PO (20:24)
[2020-11-02] MEDS: DONEPEZIL HCL 5 MG TABLET PO (20:25)
[2020-11-02] MEDS: metFORMIN HCL XR 500 MG TAB.SR.24H PO (20:25)
[2020-11-02] MEDS: MELATONIN 3 MG TABLET PO (20:26)
[2020-11-02] MEDS: INSULIN GLARGINE (*BKC) 100 UNITS/ML 20 UNITS SUB-Q (20:32)
[2020-11-03] VITALS: BP 103/49; PULSE 59; RESP 18; TEMP 36.6; O2SAT 94
[2020-11-03 02:18] LABS: Glucose Point of Care 368 mg/dl (65-105)
[2020-11-03 04:00] VITALS: BP 120/59; PULSE 52; RESP 18; TEMP 36.7; O2SAT 96
[2020-11-03 06:17] LABS: Basophils Percent Auto 0.2 % (0.2-1.2); Eosinophils Absolute Auto 0.1 K/mm3 (0-0.3); Eosinophils Percent Auto 1.1 % (0-4.4); Hematocrit 33.3 % (37.0-47.0); Hemoglobin 10.7 g/dL (12.0-15.0); Immature Granulocyte Absolute 0.09 K/mm3 (0.00-0.031); Lymphocytes Absolute Auto 1.02 K/mm3 (0.9-3.2); Lymphocytes Percent Auto 22.2 % (18.3-44.2); Mean Corpuscular HGB Conc 32.1 g/dl (32-36); Mean Corpuscular Hemoglobin 31.4 pg (26-34); Mean Corpuscular Volume 97.7 fl (80-100); Monocytes Absolute Auto 0.5 K/mm3 (0.1-0.6); Monocytes Percent Auto 11.7 % (2.6-8.5); Neutrophils Absolute Auto 2.9 K/mm3 (1.3-6.7); Neutrophils Percent Auto 62.8 % (45.5-73.1); Platelet Count Result 452 k/mm3 (150-375); Red Blood Count 3.41 M/mm3 (4.2-5.4); Red Cell Distribution Width 14.8 % (11.5-14.5); White Blood Count 4.6 K/mm3 (4.5-10.0)
[2020-11-03 06:34] LABS: Anion Gap 3 mmol/L (8-16); Blood Urea Nitrogen 14 mg/dL (7-17); Calcium 8.8 mg/dL (8.4-10.2); Carbon Dioxide 25 mmol/L (22-30); Chloride 103 mmol/L (98-107); Estimated CRCL calculation 80 ml/min; Estimated Glomerular Filt Rate > 60; Glucose 329 mg/dL (65-110); Potassium 4.2 mmol/L (3.4-5.0); Sodium 131 mmol/L (137-145)
[2020-11-03] MEDS: ONDANSETRON HCL ODT 4 MG TABLET PO ×2 (06:53→11:09)
[2020-11-03 08:00] VITALS: BP 127/67; PULSE 52; RESP 14; TEMP 36.5; O2SAT 91
[2020-11-03 08:20] VITALS: O2SAT 94
[2020-11-03 08:27] LABS: Glucose Point of Care 330 mg/dl (65-105)
[2020-11-03] MEDS: INSULIN ASPART (*BKC) 100 UNITS/ML SUB-Q ×2 (08:53→11:55)
[2020-11-03] MEDS: metFORMIN HCL XR 500 MG TAB.SR.24H 1000 MG PO (08:55)
[2020-11-03] MEDS: GABAPENTIN 300 MG CAPSULE PO (08:56)
[2020-11-03] MEDS: ENOXAPARIN 40 MG/0.4 ML SYRINGE SUB-Q (11:09)
[2020-11-03 12:00] VITALS: BP 112/57; PULSE 57; RESP 16; TEMP 36.6; O2SAT 95
[2020-11-03 12:02] LABS: Glucose Point of Care 346 mg/dl (65-105)
[2020-11-03 12:30] VITALS: O2SAT 95
--- NOTE | 2020-11-03 12:56 | PCNFU ---
Nutrition Follow-Up Complete: Food and Nutrition Knowledge Deficit as related to uncontrolled DM as evidenced by HgbA1c >14.0% Goal: Adequate Intake of at least 75% of meals/supplements Patient is progressing towards goal. No new goal at this time. Pt current nutrition is Diabetic Consistent Carbohydrate Diet. Last recorded weight is 74.9 kg. Bowel Motility: + BM 11/02/2020 Labs Reviewed: Hgb 10.7, Hct 33.3, Na 131, Cr 0.5 Meds Noted: Lovenox, Neurontin, Aricept, Novolog Lantus, Glucagon, Glucose, Metformin Hcl Additional Notes: Checked in with patient. Patient reports feeling better and having a better appetite. She seems to enjoy the food, especially the chicken noodle soup. She is receiving Glucerna BID providing an additional 220 calories and 10 grams of protein. On average she is consuming 82% of meals ordered. She had no nutritional questions or concerns. RD will monitor every 5 days.
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
== END 2020-11-03 15:55 | disposition home or self-care (01) | DRG 177 ==
LOC: ANHED 06:13 → ANHICU 07:10 → ANH3MEDSUR 10-27 20:04 → ANH2MED 11-05 11:47 → ANH3MEDSUR 11-05 11:47
PROVIDERS: Internal Medicine; Admitting Provider Internal Medicine; Emergency Provider Emergency Medicine; PCP Family Medicine; Visit Provider Internal Medicine Nephrology
DX: U07.1 COVID-19 (principal); E11.10 Type 2 diabetes mellitus with ketoacidosis without coma; J12.82 Pneumonia due to coronavirus disease 2019; N17.9 Acute kidney failure, unspecified; E11.42 Type 2 diabetes mellitus with diabetic polyneuropathy; R19.7 Diarrhea, unspecified; E03.9 Hypothyroidism, unspecified; G25.81 Restless legs syndrome; M79.7 Fibromyalgia; E78.5 Hyperlipidemia, unspecified; I10 Essential (primary) hypertension; E87.5 Hyperkalemia; M47.892 Other spondylosis, cervical region; R51.9 Headache, unspecified; M54.9 Dorsalgia, unspecified; V48.5XXA Car driver injured in noncollision transport accident in traffic accident, initial encounter; Z91.14 Patient's other noncompliance with medication regimen; Z78.9 Other specified health status; Z79.4 Long term (current) use of insulin; Z79.899 Other long term (current) drug therapy; Z85.43 Personal history of malignant neoplasm of ovary; Z90.710 Acquired absence of both cervix and uterus
CPT/HCPCS: 36415; 36600; 70450; 71045; 71260; 72125; 74177; 77071; 80048; 80053; 81001; 82010; 82565; 82803; 82805; 82948; 83036; 83735; 84100; 84460; 85025; 85027; 85055; 85610; 86140; 87040; 87070; 87086; 87205; 87324; 93005; 96361; 97110; 97116; 97161; 97165; 97530; 97535; A9270; C9803; G0378; J0131; J1100; J1650; J1815; J1956; J2405; J3480; J7030; Q9967; U0003; U0005

== ENCOUNTER 2020-11-21 14:39 | Inpatient (IN) | payer MEDICARE, OTHER, SELFPAY ==
[2020-11-21] VITALS (8 sets, daily range): BP systolic 133–156; BP diastolic 58–89; PULSE 82–110; RESP 17–28; TEMP 36.3; O2SAT 97–100
--- NOTE | ~2020-11-21 | XR_ITS ---
EXAMINATION: XR pelvis 1-2V DATE: 11/21/2020 19:05 INDICATION: Pelvic pain TECHNIQUE: An anteroposterior view of the pelvis was obtained. COMPARISON: None. FINDINGS: Bone alignment is normal. No fracture. Osteitis pubis. Severe lower lumbar facet osteoarthritis. Bila teral hip and sacroiliac joint spaces are relatively preserved. Multiple phleboliths in the pelvis. IMPRESSION: 1. Osteitis pubis and severe lower lumbar facet osteoarthritis. Reviewed, dictated and finalized at location A.
--- NOTE | ~2020-11-21 | XR_ITS ---
EXAMINATION: XR barium swallow EXAM DATE: 11/23/2020 09:51 INDICATION: Blocking sensation in neck. . TECHNIQUE: Barium esophagram examination was performed with patient in standing position by Dr. Chuy Celaya, radiologist. Pulsed dose reduction fluoroscopy was used with fluoroscopic time of 0.4. The DAP for this procedure was 0.5 Gycm2. A total of 86 images obtained for the exam. Correlation is mad e to CT chest 10/28/2019. FINDINGS: The pharynx is symmetric and without evidence of mass lesion or mucosal irregularity. Ther e is no esophageal stricture or mass identified. There are no esophageal diverticula. Small sliding gastroesophageal hiatal hernia. IMPRESSION: Small sliding gastroesophageal hiatal hernia. Reviewed, dictated and finalized at location A.
--- NOTE | ~2020-11-21 | XR_ITS ---
EXAMINATION: XR chest 1V portable DATE: 11/21/2020 20:56 INDICATION: Chest pain, shortness of breath and diaphoresis TECHNIQUE: frontal view of the chest was obtained. COMPARISON: Chest radiograph dated 10/26/2020 FINDINGS: ) Slight interval increase in left greater than right patchy airspace opacities in the mid and lower lung zones consistent with progression of pneumonia. No pleural effusion or pneumothorax. The cardiom ediastinal silhouette is normal. Extensive calcified right paratracheal lymph node consistent with ol d granulomatous disease. Mild thoracic dextrocurvature with moderate to severe spondylosis. IMPRESSION: 1. Slight progression in bilateral lung disease consistent progression of pneumonia Reviewed, dictated and finalized at location A. IMPRESSION: 1. Slight progression in bilateral lung disease consistent progression of pneum onia
[2020-11-21 18:04] LABS: Basophils Absolute Auto 0.1 K/mm3 (0.0-0.1); Basophils Percent Auto 1.4 % (0.2-1.2); Eosinophils Percent Auto 0.4 % (0-4.4); Hematocrit 46.8 % (37.0-47.0); Hemoglobin 13.2 g/dL (12.0-15.0); Immature Granulocyte Absolute 0.17 K/mm3 (0.00-0.031); Immature Granulocyte Percent A 1.9 % (0-0.5); Lymphocytes Absolute Auto 3.24 K/mm3 (0.9-3.2); Lymphocytes Percent Auto 35.4 % (18.3-44.2); Mean Corpuscular HGB Conc 28.2 g/dl (32-36); Mean Corpuscular Hemoglobin 32.4 pg (26-34); Mean Corpuscular Volume 114.7 fl (80-100); Mean Platelet Volume 9.3 fl (7.4-10.4); Monocytes Absolute Auto 0.5 K/mm3 (0.1-0.6); Monocytes Percent Auto 5.8 % (2.6-8.5); Neutrophils Absolute Auto 5.1 K/mm3 (1.3-6.7); Neutrophils Percent Auto 55.1 % (45.5-73.1); Platelet Count Result 455 k/mm3 (150-375); Red Blood Count 4.08 M/mm3 (4.2-5.4); Red Cell Distribution Width 14.9 % (11.5-14.5); White Blood Count 9.2 K/mm3 (4.5-10.0)
[2020-11-21 18:21] LABS: Alanine Aminotransferase 15 U/L (4-35); Albumin Level 4.7 g/dL (3.5-5.1); Alkaline Phosphatase 131 U/L (38-126); Aspartate Amino Transferase 20 U/L (14-36); Bilirubin,Total 0.5 mg/dL (0.2-1.3); Blood Urea Nitrogen 19 mg/dL (7-17); Calcium 10.9 mg/dL (8.4-10.2); Carbon Dioxide < 5 mmol/L (22-30); Chloride 104 mmol/L (98-107); Estimated CRCL calculation 50 ml/min; Estimated Glomerular Filt Rate > 60; Glucose 573 mg/dL (65-110); Potassium 5.5 mmol/L (3.4-5.0); Sodium 136 mmol/L (137-145)
[2020-11-21 18:33] LABS: Platelet Estimate Increased (Adequate)
[2020-11-21 18:34] LABS: Anisocytosis 1+ (NORMAL); Hypochromasia 1+ (NORMAL)
--- NOTE | 2020-11-21 18:53 | ED.GENADULT ---
HPI - General Adult General Chief complaint: Unspecified Stated complaint: my bones hurt Time Seen by Provider: 11/21/20 18:43 Source: patient Mode of arrival: ambulatory Limitations: no limitations History of Present Illness HPI narrative: Patient is a 70-year-old female complaining of my bones hurt referring to her bilateral hip pain started 2 days ago. Patient states her pain is an 8 out of 10, dull, aching worse with walking. Patient denies any injury or falls. Patient denies any chest pain, shortness of breath, abdominal pain, nausea, vomiting, diarrhea, fever or chills. Related Data Allergies Allergy/AdvReac Type Severity Reaction Status Date / Time banana Allergy Severe SEVERE Verified 11/19/20 10:26 HIVES acetaminophen [From Tylenol] AdvReac Intermediate Nausea and Verified 11/19/20 10:26 Vomiting aspirin AdvReac Intermediate Nausea and Verified 11/19/20 10:26 Vomiting fluoxetine [From Prozac] AdvReac Hallucinati Verified 11/19/20 10:26 ng Review of Systems Review of Systems: All systems reviewed & are unremarkable except as noted in HPI and below Constitutional: Constitutional: Denies body ache(s), Denies chills, Denies excessive sweating, Denies fatigue, Denies fever(s), Denies headache(s), Denies lethargy, Denies malaise, Denies weakness and Denies weight loss Eyes: Eyes: Denies blurry vision, Denies change in vision and Denies loss of vision ENT: Denies dizziness, Denies ear discharge, Denies headache(s), Denies lip swelling, Denies epistaxis, Denies nasal congestion, Denies neck pain, Denies throat swelling and Denies tongue swelling Cardiovascular: Cardiovascular: Denies chest pain, Denies chest pain at rest, Denies chest pain with activity, Denies diaphoresis, Denies rapid heart rate, Denies edema, Denies irregular heart rhythm, Denies lightheadedness, Denies palpitations, Denies dyspnea and Denies dyspnea on exertion Respiratory: Respiratory: Denies chest congestion, Denies cough, Denies hemoptysis, Denies dyspnea and Denies dyspnea on exertion Gastrointestinal: Gastrointestinal: Denies abdominal pain, Denies melena, Denies hematochezia, Denies diarrhea, Denies nausea, Denies vomiting and Denies hematemesis Musculoskeletal: Musculoskeletal: Denies deformity, Denies joint swelling, Denies neck pain and Denies numbness Neurologic: Denies Abnormal speech present, Denies abnormal gait, Denies confusion, Denies dizziness, Denies headache(s), Denies focal weakness, Denies loss of vision, Denies numbness, Denies Other visual disturbances, Denies Sensory deficit (Neuro) and Denies weakness Psychiatric: Psychiatric: Denies confusion, Denies depression, Denies auditory hallucinations, Denies homicidal ideation and Denies suicidal ideation Endocrine: Endocrine: Denies cold intolerance, Denies excessive sweating, Denies fatigue, Denies heat intolerance and Denies palpitations Hematologic/Lymphatic: Hematologic/Lymphatic: Denies easy bleeding and Denies easy bruising Allergic/Immunologic: Allergic/Immunologic: Denies lip swelling, Denies throat swelling and Denies tongue swelling PMFSH Past Medical History Medical History Anemia Depression Diabetic peripheral neuropathy Fibromyalgia Hyperlipidemia Hypertension Hypothyroidism Ovarian cancer At the age of 33, status post hysterectomy. Patient states that half an ovary was left during surgery. She required no further treatment. Restless leg syndrome Shingles Type 2 diabetes mellitus Hemoglobin A1c was > 14% 09/08/2020. C-peptide 0.63. Surgical History Surgical History History of hysterectomy History of tonsillectomy History of tubal ligation Family History Family History Grandparent Family history of premature coronary heart disease, Onset Age: 64 Father Family
[2020-11-21 19:13] LABS: Fractional Inspired Oxygen 21 %; PO2 VBG 51.3 mmHg (35.0-45.0)
[2020-11-21 19:17] LABS: pH VBG 7.092 (7.300-7.400)
[2020-11-21 19:18] LABS: Device ROOM AIR; PCO2 VBG 16.8 mmHg (42.0-48.0)
[2020-11-21] MEDS: LACTATED RINGERS 1,000 ML 999 ML IV CONT ×2 (20:00→21:55)
--- NOTE | 2020-11-21 20:05 | PC.NURSE ---
Per VORB by TERELL Plascencia, hold 10 units Regular Insulin at this time. After first LR bolus is infused, check blood glucose.
[2020-11-21 20:08] LABS: Glucose Point of Care > 500 mg/dl (65-105)
--- NOTE | 2020-11-21 20:12 | PC.NURSE ---
aPt requesting pain medication for generalized body aches. Rates pain 12/06.EDP notified.
--- NOTE | 2020-11-21 20:28 | ECG_ITS ---
Measurements Intervals [place] Rate: 108 P: 76 AL: 163 QRS: 38 QRSD: 106 T: 124 QT: 323 QTc: 433 Interpretive Statements SINUS TACHYCARDIA POSSIBLE LEFT ATRIAL ENLARGEMENT BORDERLINE ST-T WAVE ABNORMALITY- INF/LAT LEADS BASELINE ARTIFACT- I, II, III, AVR, AVL, AVF, V1-V6 ABNORMAL ECG Electronically Signed On 11-22-2020 7:58:08 CDT by Unruly Panchal D.O.
[2020-11-21 21:20] LABS: Add Urine Microscopic? YES; Appearance Urine Clear (Clear); Bilirubin Urine Negative (Negative); Blood Urine 1+ (Negative); Color Urine Straw (Yellow); Glucose Urine UA 3+ mg/dL (Negative); Ketones Urine 2+ mg/dL (Negative); Leukocyte Esterase Ur Negative LEU/UL (Negative); Mucus Urine Rare /lpf; Nitrate Urine Negative (Negative); Protein Urine 1+ mg/dL (Negative); RBC Urine 0-2 /hpf (0-2); Specific Grav Ur 1.025 (1.001-1.035); Squamous Epithelial Cell Urine Rare /hpf (Few); Urobilinogen Urine Negative mg/dL (<2.0)
--- NOTE | 2020-11-21 21:20 | PC.NURSE ---
Pt requesting pain medication at this time. EDP notified.
--- NOTE | 2020-11-21 21:36 | PC.NURSE ---
Per VORB by TERELL Plascencia, start insulin drip after 2nd LR bolus is infused.
[2020-11-21] MEDS: MORPHINE SULFATE (*CRX) 2 MG/ML INJ IV PUSH (21:56)
[2020-11-21] MEDS: PROMETHAZINE HCL 25 MG/ML AMPUL 12.5 MG IV PUSH (21:59)
--- NOTE | 2020-11-21 22:09 | PC.NURSE ---
Pt A&Ox4 at this time. Lethargic and arousable to verbal stimuli, with increased respiratory rate. Pt O2 saturation 98% on RA. EDP notified and at bedside. Per EDP Plascencia, apply 2L NC and give 10 units Regular Insulin.
[2020-11-21 22:20] LABS: Glucose Point of Care 461 mg/dl (65-105)
[2020-11-21] MEDS: INSULIN HUMAN REGULAR (*BKC) 100 UNITS/ML 10 UNITS IV PUSH (22:21)
--- NOTE | 2020-11-21 23:02 | PC.NURSE ---
Per EDP Kell Plascencia to use 1 L 0.9% NS instead of ordered LR. Per VORB, infuse at 125 mls/hr.
[2020-11-21] MEDS: INSULIN HUMAN REGULAR (*BKC) 100 UNITS in SODIUM CHLORIDE 0.9% IV 99 ML 7.3 UNITS IV CONT (23:16)
[2020-11-21] MEDS: SODIUM CHLORIDE 0.9% IV 1,000 ML 125 ML IV CONT (23:16)
--- NOTE | 2020-11-21 23:33 | PM.IMHP ---
H&P: HPI History of Present Illness Date/Time: 11/21/20 23:33 Chief Complaint: Bone pains Narrative: Patient is a 70-year-old female who presents to the ED today with generalized aches and pains. She denies any injury or fall. No chest pain shortness of breath abdominal pain nausea vomiting diarrhea fever chills. She was recently discharged from this hospital on 11/03/2020 after being admitted for DKA and COVID pneumonia. COVID-19 pneumonia was treated with remdesivir and dexamethasone completed the course of treatment was weaned off to room air by the time of discharge. Since the discharge she has been having elevated blood sugar and recently saw her primary care as well. It is unclear when she last took her insulin. She has a history of diagnosis of diabetes type 2 in March 2019 and had been noncompliant with insulin treatment. According to the trends seen in the past though she is on higher dose of insulin at home here with the same dose he will on hypoglycemic questioning whether she is taking the insulin that is prescribed. In the ED again she is found to be in DKA with bicarbonate less than 5. She is getting admitted to the ICU for further management and care. Review of Systems Review of Systems: - CONSTITUTIONAL: Denies weight loss, fever and chills. - HEENT: Denies changes in vision and hearing - RESPIRATORY: Denies SOB and cough. - CV: Denies palpitations and CP. - GI: Denies abdominal pain, nausea, vomiting and diarrhea. - : Denies dysuria and urinary frequency. - MSK: Denies myalgia and joint pain. - SKIN: Denies rash and pruritus. - NEUROLOGICAL: Denies headache and syncope. - PSYCHIATRIC: Denies recent changes in mood. Denies anxiety and depression. All systems reviewed & are unremarkable except as noted in HPI and below Constitutional: Constitutional: Reports fatigue and Reports weakness Neurologic: Reports weakness Endocrine: Endocrine: Reports fatigue PMFSH Past Medical History Medical History Anemia Depression Diabetic peripheral neuropathy Fibromyalgia Hyperlipidemia Hypertension Hypothyroidism Ovarian cancer At the age of 33, status post hysterectomy. Patient states that half an ovary was left during surgery. She required no further treatment. Restless leg syndrome Shingles Type 2 diabetes mellitus Hemoglobin A1c was > 14% 09/08/2020. C-peptide 0.63. Surgical History Surgical History History of hysterectomy History of tonsillectomy History of tubal ligation Family History Family History Grandparent Family history of premature coronary heart disease, Onset Age: 64 Father Family history of respiratory disorder, Onset Age: 87 Cerebrovascular accident Family history of Alzheimer's disease Patient's father is Family history of cardiovascular disease Mother Family history of primary malignant neoplasm of liver, Onset Age: 64 Family history of malignant neoplasm of breast in first degree relative Patient's mother is , Onset Age: 64 Family history of malignant neoplasm Social History Social History Social History: The patient is . She lives in her own home in [place], [place]. She does not work. She has 2 daughters, and designates her daughter Jose Posey, as her surrogate decision maker. She wishes to be a do not resuscitate. She is a lifelong nonsmoker. She drinks perhaps 4-12 alcoholic beverages a week. No drug use. Smoking status: Never smoker Alcohol intake: current Drinks per week: 10 Substance use: current Substance use type: marijuana Sexual Orientation (if Verbalized by the Patient): Straight or Heterosexual Spiritual care concerns: No Meds Home Medications and Allergies
[2020-11-21 23:57] LABS: Glucose Point of Care 428 mg/dl (65-105)
[2020-11-22] VITALS (11 sets, daily range): BP systolic 91–137; BP diastolic 46–71; PULSE 71–98; RESP 15–21; TEMP 36.1–36.8; O2SAT 98–100
--- NOTE | 2020-11-22 00:08 | ADMGEN ---
This patient, Karly Leslie, was admitted to Intensive Care Unit-7. Patient/family oriented to hospital policies and general routines including ID bracelet, bed and alarms, visiting hours, pain management, procedures, bathroom and other care routines, personal items, smoking policy, room service/diet, and visiting hours. Information on how to activate the Rapid Response Team has been discussed. Patient/Family are encouraged to report perceived risks to care and to ask questions if they do not understand what they are told or what they should do.
[2020-11-22 00:14] LABS: Glucose Point of Care 348 mg/dl (65-105)
[2020-11-22 01:26] LABS: Glucose Point of Care 229 mg/dl (65-105)
[2020-11-22 01:50] LABS: Blood Urea Nitrogen 16 mg/dL (7-17); Calcium 10.2 mg/dL (8.4-10.2); Carbon Dioxide < 5 mmol/L (22-30); Chloride 115 mmol/L (98-107); Estimated CRCL calculation 57 ml/min; Estimated Glomerular Filt Rate > 60; Glucose 229 mg/dL (65-110); Magnesium 2.4 mg/dL (1.6-2.3); Phosphorus 2.7 mg/dL (2.5-4.5); Potassium 4.9 mmol/L (3.4-5.0); Sodium 143 mmol/L (137-145)
[2020-11-22 02:17] LABS: Glucose Point of Care 157 mg/dl (65-105)
[2020-11-22] MEDS: KCL 20 MEQ/D5/0.45% SOD CHL 1,000 ML 150 ML IV CONT (02:20)
[2020-11-22 03:47] LABS: Glucose Point of Care 128 mg/dl (65-105)
[2020-11-22 04:30] LABS: Glucose Point of Care 124 mg/dl (65-105)
[2020-11-22 05:51] LABS: Glucose Point of Care 145 mg/dl (65-105)
[2020-11-22 06:39] LABS: Glucose Point of Care 132 mg/dl (65-105)
[2020-11-22 07:49] LABS: Anion Gap 16 mmol/L (8-16); Blood Urea Nitrogen 15 mg/dL (7-17); Calcium 9.7 mg/dL (8.4-10.2); Carbon Dioxide 6 mmol/L (22-30); Chloride 116 mmol/L (98-107); Estimated CRCL calculation 77 ml/min; Estimated Glomerular Filt Rate > 60; Glucose 137 mg/dL (65-110); Potassium 5.3 mmol/L (3.4-5.0); Sodium 138 mmol/L (137-145)
[2020-11-22 07:49] LABS: Add Urine Microscopic? YES; Appearance Urine Clear (Clear); Bilirubin Urine Negative (Negative); Blood Urine 1+ (Negative); Color Urine Straw (Yellow); Glucose Urine UA 3+ mg/dL (Negative); Ketones Urine 2+ mg/dL (Negative); Leukocyte Esterase Ur Negative LEU/UL (NEGATIVE); Mucus Urine Rare /lpf; Nitrate Urine Negative (Negative); Protein Urine 2+ mg/dL (Negative); RBC Urine 0-2 /hpf (0-2); Specific Grav Ur 1.017 (1.001-1.035); Squamous Epithelial Cell Urine Rare /hpf (Few); Urobilinogen Urine Negative mg/dL (<2.0); WBC Urine 0-3 /hpf (0-3)
[2020-11-22 07:55] LABS: Hemoglobin A1C 13.7 % (<5.7)
[2020-11-22] MEDS: ENOXAPARIN 40 MG/0.4 ML SYRINGE SUB-Q (08:27)
[2020-11-22] MEDS: GABAPENTIN 300 MG CAPSULE PO ×3 (08:27→17:15)
[2020-11-22] MEDS: INSULIN HUMAN REGULAR (*BKC) 100 UNITS in SODIUM CHLORIDE 0.9% IV 99 ML IV CONT (08:28)
[2020-11-22 08:33] LABS: Glucose Point of Care 119 mg/dl (65-105)
[2020-11-22 08:33] LABS: Glucose Point of Care 135 mg/dl (65-105)
--- NOTE | 2020-11-22 08:57 | WPDCNINT ---
Assessment and Plan Assessment and plan (1) Diabetic ketoacidosis, type II: Code(s): E11.10 - Type 2 diabetes mellitus with ketoacidosis without coma Status: Acute Assessment and Plan: patient was given IV fluid bolus and started on IV fluids currently on insulin drip serial BMPs ordered and most recent is pending. Will review results before transitioning insulin patient is asymptomatic and hungry and would like to eat hence will advance the diet change IV fluids to D5 half-normal saline concerning elevated potassium level (2) Acidosis: Code(s): E87.2 - Acidosis Status: Acute Assessment and Plan: mixed acidosis from DKA and now hyperchloremia most recent BMP is pending (3) Hyperkalemia: Code(s): E87.5 - Hyperkalemia Status: Acute Assessment and Plan: change IV fluids to D5 half-normal saline (4) Diabetic peripheral neuropathy: Code(s): E11.42 - Type 2 diabetes mellitus with diabetic polyneuropathy Status: Acute Assessment and Plan: continue Neurontin (5) RLS (restless legs syndrome): Code(s): G25.81 - Restless legs syndrome Status: Acute Assessment and Plan: on Mirapex Additional Plan DVT prophylaxis - Lovenox subQ Code Status - Full Code [facility] Consult Note Consult date: 11/22/20 Time Seen: 08:45 HPI: Karly Leslie is a 70 year old female with past medical history of diabetes mellitus and noncompliance with insulin who has been admitted multiple times in the past with DKA presented yesterday with chief complaint of high blood sugars and feeling dizzy and weak. Patient's complains compliance with her insulin and states that when she woke up in the morning she felt tired and dizzy. Blood sugar was 400s hence she came to ER. Patient denies having any fever, chest pain, nausea, vomiting, abdominal pain, diarrhea, dysuria, frequency, urgency. She states she has had cough since she was diagnosed with COVID and is not new. Cough is nonproductive. she states she takes 63 units of Lantus at night and NovoLog sliding scale during the day. Review of system is positive for he aching in the legs which is also chronic. States she takes Motrin at home. All other systems were reviewed and were negative Patient was recently diagnosed with COVID and treated for COVID-19 pneumonia and discharged home on room air on 11/03. Review of Systems Review of Systems: All systems reviewed & are unremarkable except as noted in HPI and below ( HPI) [facility] Past Medical History Medical History Anemia Depression Diabetic peripheral neuropathy Fibromyalgia Hyperlipidemia Hypertension Hypothyroidism Ovarian cancer At the age of 33, status post hysterectomy. Patient states that half an ovary was left during surgery. She required no further treatment. Restless leg syndrome Shingles Type 2 diabetes mellitus Hemoglobin A1c was > 14% 09/08/2020. C-peptide 0.63. Surgical History Surgical History History of hysterectomy History of tonsillectomy History of tubal ligation Family History Family History Grandparent Family history of premature coronary heart disease, Onset Age: 64 Father Family history of respiratory disorder, Onset Age: 87 Cerebrovascular accident Family history of Alzheimer's disease Patient's father is Family history of cardiovascular disease Mother Family history of primary malignant neoplasm of liver, Onset Age: 64 Family history of malignant neoplasm of breast in first degree relative Patient's mother is , Onset Age: 64 Family history of malignant neoplasm Social History Social History Social History: The patient is . [place]
[2020-11-22] MEDS: DEXTROSE 5%/0.45% SOD CHL 1,000 ML 100 ML IV CONT (09:00)
[2020-11-22 09:12] LABS: Anion Gap 12 mmol/L (8-16); Blood Urea Nitrogen 13 mg/dL (7-17); Calcium 9.4 mg/dL (8.4-10.2); Carbon Dioxide 9 mmol/L (22-30); Chloride 116 mmol/L (98-107); Estimated CRCL calculation 77 ml/min; Estimated Glomerular Filt Rate > 60; Glucose 130 mg/dL (65-110); Potassium 4.4 mmol/L (3.4-5.0); Sodium 137 mmol/L (137-145)
[2020-11-22] MEDS: IBUPROFEN 400 MG TABLET PO ×2 (09:37→17:20)
[2020-11-22 09:40] LABS: Glucose Point of Care 94 mg/dl (65-105)
[2020-11-22] MEDS: INSULIN GLARGINE (*BKC) 100 UNITS/ML 30 UNITS SUB-Q (09:58)
[2020-11-22 12:29] LABS: Glucose Point of Care 185 mg/dl (65-105)
--- NOTE | 2020-11-22 14:46 | PC.NURSE ---
This patient, Karly Leslie, was transferred to [[id number]] on 11/22/20 at 1450. Personal belongings sent with patient. Report given to [ SAMMY Wheeler @ 1180]. Appropriate documentation sent with patient.
--- NOTE | 2020-11-22 17:01 | PM.IMPN ---
Progress Note: A&P Assessment and Plan (1) Diabetic ketoacidosis, type II: Code(s): E11.10 - Type 2 diabetes mellitus with ketoacidosis without coma Status: Acute Assessment and Plan: patient was given IV fluid bolus followed by continuous IV fluids currently on insulin drip. Gap closed. Accuchecks in the 94-135 range today. Fasting blood suagr 130. Patient transitioned to lantus 30 units twice daily. patient is asymptomatic and hungry and would like to eat hence will advance the diet change IV fluids to D5 half-normal saline concerning elevated potassium level (2) Acidosis: Code(s): E87.2 - Acidosis Status: Acute Assessment and Plan: mixed acidosis from DKA and now hyperchloremia Bicarbonate is improving. Hyperchloremia is likely secondary tp normal saline administration. We will switch to lactated Ringer's solution. (3) Hyperkalemia: Code(s): E87.5 - Hyperkalemia Status: Acute Assessment and Plan: change IV fluids to D5 half-normal saline. resolved. (4) Diabetic peripheral neuropathy: Code(s): E11.42 - Type 2 diabetes mellitus with diabetic polyneuropathy Status: Acute Assessment and Plan: continue Neurontin (5) RLS (restless legs syndrome): Code(s): G25.81 - Restless legs syndrome Status: Acute Assessment and Plan: on Mirapex Additional Plan DVT prophylaxis - Lovenox subQ Code Status - Full Code Subjective Date/time seen: Patient is a 70-year-old female who presents to the ED ON 11/21/2020 with generalized aches and pains. She was recently discharged from this hospital on 11/03/2020 after being admitted for DKA and COVID pneumonia. COVID-19 pneumonia was treated with remdesivir and dexamethasone completed the course of treatment was weaned off to room air by the time of discharge. Since the discharge she has been experiencing elevated blood sugar and recently saw her primary care as well. It is unclear when she last took her insulin. She has a history of diagnosis of diabetes type 2 in March 2019 and had been noncompliant with insulin treatment. According to the trends seen in the past though she is on higher dose of insulin at home here with the same dose he will on hypoglycemic questioning whether she is taking the insulin that is prescribed. Patient reports falling ill after eating at a [place] restaurant. In the ED again she is found to be in DKA with bicarbonate less than 5. She is getting admitted to the ICU for further management and care. 11/22/20 17:01 Review of Systems Review of Systems: All systems reviewed & are unremarkable except as noted in HPI and below ( HPI) Constitutional: Constitutional: Reports fatigue and Reports weakness Gastrointestinal: Gastrointestinal: Reports nausea and Reports other Comments: epigastric discomfort Neurologic: Reports weakness Endocrine: Endocrine: Reports fatigue Exam Narrative: General: Pt is alert awake and in NAD Lungs/Chest: Trachea central Clear BS B/L, No crackles or wheezing. Cardiac: RRR. Normal S1 S2. No murmurs Circulation: Pedal pulses are intact and symmetrical. Abdomen: Normal bowel sounds.. Soft. NT. ND. Extremities: No clubbing, cyanosis or edema. Warm : Grace in place Neurologic: Follows commands. Moves all 4 extremities PERRL Skin: No Rash Extrem: General: normal exam except as noted and no edema Objective Data Vital Signs Vital Signs: Vital Signs - 24 hr 11/21/20 17:55 11/21/20 18:49 11/21/20 22:04 Temperature Pulse Rate 98 84 104 H Respiratory Rate 20 17 28 H Blood Pressure 147/58 H 155/89 H 148/62 H Pulse Oximetry 100 97 98 11/21/20 22:09 11/21/20 22:49 11/21/20 23:27 Temperature Pulse Rate 110 H 109 H Respiratory Rate 26 H 26 H Blood Pressure 154/86 H 155/80 H Pulse Oximetry 100 100 100 11/21/20 23:51 11/22/20 00:30 11/22/20 02:00 Temperature 98.0 F Pulse Rate 105 H 98 83 Respiratory
[2020-11-22 17:15] LABS: Glucose Point of Care 338 mg/dl (65-105)
[2020-11-22] MEDS: INSULIN ASPART (*BKC) 100 UNITS/ML SUB-Q (17:15)
[2020-11-22] MEDS: PRAMIPEXOLE 1 MG TABLET 3 MG PO (20:09)
[2020-11-22] MEDS: DONEPEZIL HCL 5 MG TABLET PO (20:10)
[2020-11-22 20:52] LABS: Glucose Point of Care 372 mg/dl (65-105)
[2020-11-23 05:15] VITALS: BP 120/54; PULSE 79; RESP 16; TEMP 36.2; O2SAT 96
[2020-11-23 05:18] LABS: Hematocrit 34.2 % (37.0-47.0); Hemoglobin 11.2 g/dL (12.0-15.0); Mean Corpuscular HGB Conc 32.7 g/dl (32-36); Mean Corpuscular Hemoglobin 32.3 pg (26-34); Mean Corpuscular Volume 98.6 fl (80-100); Mean Platelet Volume 8.9 fl (7.4-10.4); Platelet Count Result 384 k/mm3 (150-375); Red Blood Count 3.47 M/mm3 (4.2-5.4); Red Cell Distribution Width 15.2 % (11.5-14.5); White Blood Count 5.9 K/mm3 (4.5-10.0)
[2020-11-23 07:44] LABS: Glucose Point of Care 184 mg/dl (65-105)
[2020-11-23] MEDS: GABAPENTIN 300 MG CAPSULE PO ×3 (08:50→17:42)
[2020-11-23] MEDS: ENOXAPARIN 40 MG/0.4 ML SYRINGE SUB-Q (08:50)
[2020-11-23] MEDS: INSULIN GLARGINE (*BKC) 100 UNITS/ML 30 UNITS SUB-Q (08:51)
[2020-11-23] MEDS: BENZONATATE 100 MG CAPSULE PO ×2 (08:52→20:14)
[2020-11-23] MEDS: IBUPROFEN 400 MG TABLET PO (08:54)
--- NOTE | 2020-11-23 09:13 | PM.IMPN ---
Progress Note: A&P Assessment and Plan (1) Diabetic ketoacidosis, type II: Code(s): E11.10 - Type 2 diabetes mellitus with ketoacidosis without coma Status: Acute Assessment and Plan: patient was managed with intravenous resuscitation: IV fluid bolus followed by continuous IV fluids Fasting blood glucose 130 on 11/22/2020. Follow up today's chemistries. Gap closed. Accuchecks in the 94-135 range on 11/22/2020. Patient transitioned to lantus 30 units twice daily. patient is complaining of epigastric pain. We will start PPI (2) Acidosis: Code(s): E87.2 - Acidosis Status: Acute Assessment and Plan: mixed acidosis from DKA and now hyperchloremia Bicarbonate is improving. Hyperchloremia is likely secondary to normal saline administration. On a regular diabetic diet today. (3) Hyperkalemia: Code(s): E87.5 - Hyperkalemia Status: Acute Assessment and Plan: resolved. (4) Diabetic peripheral neuropathy: Code(s): E11.42 - Type 2 diabetes mellitus with diabetic polyneuropathy Status: Acute Assessment and Plan: continue Neurontin (5) RLS (restless legs syndrome): Code(s): G25.81 - Restless legs syndrome Status: Acute Assessment and Plan: on Mirapex Additional Plan DVT prophylaxis - Lovenox subQ Code Status - Full Code Subjective Date/time seen: 11/23/20 09:13 S: Patient is examined at the bedside. She reports epigastric pain, sensation of food blockage in the neck and intermittent nausea. There is no vomiting. Review of Systems Constitutional: Constitutional: Reports no additional constitutional complaints Eyes: Eyes: Reports no additional eye complaints ENT: Reports system reviewed and no additional complaints, except as documented Cardiovascular: Cardiovascular: Reports no additional cardiovascular complaints Respiratory: Respiratory: Reports no additional respiratory complaints Gastrointestinal: Gastrointestinal: Reports abdominal pain, Denies diarrhea, Reports nausea and Denies vomiting Comments: Sensation of food blockage in the neck. Genitourinary: Genitourinary: Reports no additional female genitourinary complaints Musculoskeletal: Musculoskeletal: Reports no additional musculoskeletal complaints Integumentary/Breasts: Skin/Breast: Reports system reviewed and no additional complaints, except as docu Neurologic: Reports system reviewed and no additional complaints, except as documented Psychiatric: Psychiatric: Reports no additional psychiatric complaints Exam Narrative: Patient is examined at the bedside. She reports epigastric pain. Const: General: in distress and uncomfortable HENMT: Mouth: Yes moist mucous membranes Eyes: General: appearance normal, both eyes and all related structures Neck: Neck: no JVD Resp: Effort & Inspection: normal respiratory effort Auscultation: clear to auscultation bilaterally, no crackles, no rales and no rhonchi Cardio: Rate: regular rate Rhythm: regular rhythm Heart sounds: no gallops, no murmurs and no rubs GI: GI Palp: Yes Soft to palpation and Yes Tenderness to palpation present (GI) Auscultation: normal bowel sounds Other: Tenderness of the epigastrium increasing with palpitation. : Other: Deferred. Skin: General skin exam: normal color and no rashes or lesions noted Neuro: Speech: normal speech Motor exam (neuro): Abnormal motor strength present Sensory Exam: normal sensation Extrem: Right upper extremity: no edema Left upper extremity: no edema Right lower extremity: no edema Left lower extremity: no edema Psych: Mental Status: mental status grossly normal Objective Data Vital Signs Vital Signs: Vital Signs - 24 hr 11/22/20 10:00 11/22/20 12:00 11/22/20 15:00 Temperature 97.5 F L 97.8 F Pulse Rate 85 88 83 Respiratory Rate 16 21 H 16 Blood Pressure 113/69 108/56 L 113/52 L Pulse Oximetry 98 100 99 11/22/20 20:00
--- NOTE | 2020-11-23 09:42 | PCSTNOTE ---
Therapist attempted to schedule a Modified Barium Swallow (MBS) study for this patient however Radiology reported that this was a mistaken entry and that a REGULAR barium swallow study was indicated so that is the study that will be completed. Therefore this therapist confirmed with nurse and cancelled the MBS order.
[2020-11-23 10:06] VITALS: O2SAT 96
[2020-11-23 10:33] LABS: Alanine Aminotransferase 10 U/L (4-35); Albumin Level 3.1 g/dL (3.5-5.1); Alkaline Phosphatase 85 U/L (38-126); Anion Gap 8 mmol/L (8-16); Aspartate Amino Transferase 16 U/L (14-36); Bilirubin,Total 0.2 mg/dL (0.2-1.3); Blood Urea Nitrogen 11 mg/dL (7-17); Calcium 9.9 mg/dL (8.4-10.2); Carbon Dioxide 15 mmol/L (22-30); Chloride 115 mmol/L (98-107); Estimated CRCL calculation 94 ml/min; Estimated Glomerular Filt Rate > 60; Glucose 220 mg/dL (65-110); Magnesium 2.2 mg/dL (1.6-2.3); Potassium 3.6 mmol/L (3.4-5.0); Sodium 138 mmol/L (137-145)
[2020-11-23 11:49] LABS: Glucose Point of Care 237 mg/dl (65-105)
[2020-11-23] MEDS: INSULIN ASPART (*BKC) 100 UNITS/ML SUB-Q ×2 (12:26→17:43)
[2020-11-23] MEDS: PANTOPRAZOLE 40 MG TABLET PO (12:27)
[2020-11-23 15:04] VITALS: BP 127/64; PULSE 82; RESP 16; TEMP 36.6; O2SAT 97
[2020-11-23 17:21] LABS: Glucose Point of Care 301 mg/dl (65-105)
[2020-11-23 20:00] VITALS: PULSE 80; RESP 20; O2SAT 97
[2020-11-23] MEDS: PRAMIPEXOLE 1 MG TABLET 3 MG PO (20:13)
[2020-11-23] MEDS: DONEPEZIL HCL 5 MG TABLET PO (20:13)
[2020-11-23 20:34] VITALS: BP 115/71; PULSE 80; RESP 20; TEMP 35.7; O2SAT 97
[2020-11-23 20:43] LABS: Glucose Point of Care 103 mg/dl (65-105)
[2020-11-24] VITALS: BP 120/70; PULSE 70; RESP 20; TEMP 36.4; O2SAT 97
[2020-11-24 04:12] VITALS: BP 123/59; PULSE 68; RESP 18; TEMP 36.6; O2SAT 100
[2020-11-24 05:58] LABS: Hematocrit 34.4 % (37.0-47.0); Hemoglobin 11.4 g/dL (12.0-15.0); Mean Corpuscular HGB Conc 33.1 g/dl (32-36); Mean Corpuscular Hemoglobin 31.8 pg (26-34); Mean Corpuscular Volume 96.1 fl (80-100); Mean Platelet Volume 8.8 fl (7.4-10.4); Platelet Count Result 425 k/mm3 (150-375); Red Blood Count 3.58 M/mm3 (4.2-5.4); Red Cell Distribution Width 15.2 % (11.5-14.5); White Blood Count 5.7 K/mm3 (4.5-10.0)
[2020-11-24 06:30] LABS: Alanine Aminotransferase 10 U/L (4-35); Albumin Level 3.3 g/dL (3.5-5.1); Alkaline Phosphatase 95 U/L (38-126); Anion Gap 8 mmol/L (8-16); Aspartate Amino Transferase 29 U/L (14-36); Bilirubin,Total 0.3 mg/dL (0.2-1.3); Blood Urea Nitrogen 11 mg/dL (7-17); Calcium 9.3 mg/dL (8.4-10.2); Carbon Dioxide 19 mmol/L (22-30); Chloride 114 mmol/L (98-107); Estimated CRCL calculation 94 ml/min; Estimated Glomerular Filt Rate > 60; Glucose 65 mg/dL (65-110); Magnesium 2.2 mg/dL (1.6-2.3); Potassium 2.8 mmol/L (3.4-5.0); Sodium 141 mmol/L (137-145)
[2020-11-24] MEDS: POTASSIUM CHLORIDE 20 MEQ TABLET 40 MEQ PO ×3 (06:50→14:15)
[2020-11-24 08:21] LABS: Glucose Point of Care 175 mg/dl (65-105)
[2020-11-24] MEDS: ENOXAPARIN 40 MG/0.4 ML SYRINGE SUB-Q (08:41)
[2020-11-24] MEDS: GABAPENTIN 300 MG CAPSULE PO ×2 (08:41→14:15)
[2020-11-24] MEDS: PANTOPRAZOLE 40 MG TABLET PO (08:41)
[2020-11-24] MEDS: INSULIN GLARGINE (*BKC) 100 UNITS/ML 30 UNITS SUB-Q (08:42)
[2020-11-24 11:39] LABS: Glucose Point of Care 200 mg/dl (65-105)
[2020-11-24 14:00] VITALS: BP 115/60; PULSE 79; RESP 18; TEMP 36.7; O2SAT 95
--- NOTE | 2020-11-24 14:50 | PM.IMPN ---
Progress Note: A&P Assessment and Plan (1) Diabetic ketoacidosis, type II: Code(s): E11.10 - Type 2 diabetes mellitus with ketoacidosis without coma Status: Acute Assessment and Plan: Patient was managed with intravenous resuscitation: IV fluid bolus followed by continuous IV fluids Fasting blood glucose 65 on 11/24/2020.. Accuchecks in the 103-301 range on 11/24/2020. Patient transitioned to lantus 30 units daily. Patient had a blockage sensation in the throat. NO mass or stricture identified. Continue pantoprazole 40 mg PO daily for 1 month. (2) Acidosis: Code(s): E87.2 - Acidosis Status: Acute Assessment and Plan: mixed acidosis from DKA and now hyperchloremia Bicarbonate is improving. Hyperchloremia is likely secondary to normal saline administration. On a regular diabetic diet today. REpeat chemistry as an outpatient (3) Hyperkalemia: Code(s): E87.5 - Hyperkalemia Status: Acute Assessment and Plan: resolved. (4) Diabetic peripheral neuropathy: Code(s): E11.42 - Type 2 diabetes mellitus with diabetic polyneuropathy Status: Acute Assessment and Plan: continue Neurontin (5) RLS (restless legs syndrome): Code(s): G25.81 - Restless legs syndrome Status: Acute Assessment and Plan: on Mirapex Additional Plan DVT prophylaxis - Lovenox subQ Code Status - Full Code Subjective Date/time seen: 11/24/20 10:50 S: Patient is feeling better today. Improved oral intake. No blockage sensation in the throat. Review of Systems Review of Systems: All systems reviewed & are unremarkable except as noted in HPI and below ( HPI) Constitutional: Constitutional: Reports no additional constitutional complaints, Reports fatigue and Reports weakness Eyes: Eyes: Reports no additional eye complaints ENT: Reports system reviewed and no additional complaints, except as documented Cardiovascular: Cardiovascular: Reports no additional cardiovascular complaints Respiratory: Respiratory: Reports no additional respiratory complaints Gastrointestinal: Gastrointestinal: Reports abdominal pain, Denies diarrhea, Reports nausea, Denies vomiting and Reports other Genitourinary: Genitourinary: Reports no additional female genitourinary complaints Musculoskeletal: Musculoskeletal: Reports no additional musculoskeletal complaints Integumentary/Breasts: Skin/Breast: Reports system reviewed and no additional complaints, except as docu Neurologic: Reports system reviewed and no additional complaints, except as documented and Reports weakness Psychiatric: Psychiatric: Reports no additional psychiatric complaints Endocrine: Endocrine: Reports fatigue Exam Narrative: Patient is examined at the bedside. She reports epigastric pain. Const: General: in distress and uncomfortable HENMT: Mouth: Yes moist mucous membranes Eyes: General: appearance normal, both eyes and all related structures Neck: Neck: no JVD Resp: Effort & Inspection: normal respiratory effort Auscultation: clear to auscultation bilaterally, no crackles, no rales and no rhonchi Cardio: Rate: regular rate Rhythm: regular rhythm Heart sounds: no gallops, no murmurs and no rubs GI: Auscultation: normal bowel sounds Other: Tenderness of the epigastrium increasing with palpitation. : Other: Deferred. Skin: General skin exam: normal color and no rashes or lesions noted Neuro: Speech: normal speech Motor exam (neuro): Abnormal motor strength present Sensory Exam: normal sensation Extrem: General: normal exam except as noted and no edema Right upper extremity: no edema Left upper extremity: no edema Right lower extremity: no edema Left lower extremity: no edema Psych: Mental Status: mental status grossly normal Objective Data Vital Signs Vital Signs: Vital Signs - 24 hr 11/23/20 15:04 11/23/20 20:00 11/23/20 20:34 Temperature 97.9 F 96.3 F L P
--- NOTE | 2020-11-24 15:00 | PCCDE ---
Received phone call from RN regarding ems educator consult. Not able to see pt due to full OP schedule. However reviewed record and notified RN that I did see her during previous admit 09/09/20 (see [facility]). Pt was supposed to see endo in past but missed the appt. Pt has hx of memory deficit and takes Aricept. Suspect pt is not taking meds as prescribed. Recommended care coordination and/or computer security manager referral.
--- NOTE | 2020-11-24 15:17 | PC.NURSE ---
called and spoke with the certified breastfeeding educator, patient was admitted over the weekend and a consult was placed for the educator to come and speak with the patient due to her frequent admissions for DKA. [employer] stated that she was unable to come an assess the patient due to being busy. [employer] gave this nurse information to discuss with the patient in regards to checking her blood sugars and following up with a diabetes doctor or comedian outpatient.
[2020-11-24 15:29] LABS: Potassium 4.9 mmol/L (3.4-5.0)
--- NOTE | 2020-11-24 16:10 | PM.DS ---
DS: Admitting Diagnosis Discharge Date 11/24/2020 Admitting Diagnosis DKA DS: Discharge Diagnosis Discharge Diagnosis (1) Diabetic ketoacidosis, type II: Code(s): E11.10 - Type 2 diabetes mellitus with ketoacidosis without coma Status: Acute Assessment and Plan: Patient was managed with intravenous resuscitation: IV fluid bolus followed by continuous IV fluids Fasting blood glucose 65 on 11/24/2020.. Accuchecks in the 103-301 range on 11/24/2020. Patient transitioned to lantus 30 units daily. Patient had a blockage sensation in the throat. No mass or stricture identified. Continue pantoprazole 40 mg PO daily for 1 month. (2) Acidosis: Code(s): E87.2 - Acidosis Status: Acute Assessment and Plan: mixed acidosis from DKA and now hyperchloremia Bicarbonate is improving. Hyperchloremia is likely secondary to normal saline administration. On a regular diabetic diet today. Repeat chemistry as an outpatient (3) Hyperkalemia: Code(s): E87.5 - Hyperkalemia Status: Acute Assessment and Plan: resolved. (4) Diabetic peripheral neuropathy: Code(s): E11.42 - Type 2 diabetes mellitus with diabetic polyneuropathy Status: Acute Assessment and Plan: continue Neurontin (5) RLS (restless legs syndrome): Code(s): G25.81 - Restless legs syndrome Status: Acute Assessment and Plan: on Mirapex (6) Hypokalemia: Code(s): E87.6 - Hypokalemia Status: Acute Assessment and Plan: Supplemented. Resolved. K 4.9 at the time of discharge. DS: Summary Hospital Course Hospital Course: Patient is a 70-year-old female who presents to the ED on 11/21 with generalized aches and pains. She denies any injury or fall. No chest pain shortness of breath abdominal pain nausea vomiting diarrhea fever chills. She was recently discharged from this hospital on 11/03/2020 after being admitted for DKA and COVID pneumonia. COVID-19 pneumonia was treated with remdesivir and dexamethasone completed the course of treatment was weaned off to room air by the time of discharge. Since the discharge she has been having elevated blood sugar and recently saw her primary care as well. Om admission day, it was unclear when she last took her insulin. She has a history of diagnosis of diabetes type 2 in March 2019 and had been noncompliant with insulin treatment. According to the trends seen in the past though she is on higher dose of insulin at home here with the same dose he will on hypoglycemic questioning whether she is taking the insulin that is prescribed. In the ED again she is found to be in DKA with bicarbonate less than 5. She is getting admitted to the ICU for further management and care. Acute DKA severe hyperglycemia, positive BT hydroxybutyrate ICU DKA protocol likely noncompliance with insulin rule out any underlying infection. UA is negative WBC count is normal. Chest x-ray with slight progression of left lung disease noted related to recent COVID pneumonia. Normal WBC count and she was not treated with any antibiotics. Cultures have remained negative at the time fo discharge. Patient was given IV fluid bolus and started on continuous IV fluids. She has improved after started on insulin drip; serial BMPs were ordered. After gap closed and she was transitioned to insulin lantus and lispro and monitored with regular accu-checks. Her accuchecks were at goal then trending up on the floor with numbers in the 300s. THere were no hypoglycemic events. Insulin adjustment limited by erratic oral intake. On the day of discharge patient had severe hypokalemia which was supplemeted. The repeat potassium prior to discharge was 4.9. On the day of discharge a small area of cellulitis was noticed on her right elbow. She was started on and discharged with a 7-day prescription for keflex. Time Spent with Patient Time attestation: Total time spent providing and/or coordin
== END 2020-11-24 16:45 | disposition home or self-care (01) | DRG 639 ==
LOC: ANHED 21:29 → ANHICU 11-22 03:36 → ANH2MED 11-23 11:25 → ANHICU 11-26 09:58
PROVIDERS: Emergency Medicine; Internal Medicine; Admitting Provider Internal Medicine; Emergency Provider Emergency Medicine; PCP Family Medicine; Visit Provider Internal Medicine
DX: E11.10 Type 2 diabetes mellitus with ketoacidosis without coma (principal); E11.42 Type 2 diabetes mellitus with diabetic polyneuropathy; D64.9 Anemia, unspecified; E78.5 Hyperlipidemia, unspecified; M79.7 Fibromyalgia; E03.9 Hypothyroidism, unspecified; G25.81 Restless legs syndrome; F32.9 Major depressive disorder, single episode, unspecified; E83.52 Hypercalcemia; E87.5 Hyperkalemia; I10 Essential (primary) hypertension; E86.0 Dehydration; Z85.43 Personal history of malignant neoplasm of ovary; Z90.710 Acquired absence of both cervix and uterus; Z86.16 Personal history of COVID-19; Z91.19 Patient's noncompliance with other medical treatment and regimen
CPT/HCPCS: 36415; 36600; 71045; 72170; 74220; 80048; 80053; 81001; 82010; 82803; 82948; 83036; 83735; 84100; 84132; 85025; 85027; 87040; 93005; 96360; 99285; A9270; J1650; J1815; J2270; J2550; J3480; J7030; J7120

== ENCOUNTER 2021-02-22 00:30 | Emergency (ER) | payer MEDICARE, OTHER, SELFPAY ==
--- NOTE | ~2021-02-22 | XR_ITS ---
EXAMINATION: XR femur RT min 2V DATE: 02/22/2021 01:26 INDICATION: Right femur pain TECHNIQUE: Overlapping proximal and distal, AP and lateral views of the right femur were obtained. COMPARISON: None FINDINGS: Alignment is normal. No fracture. Mild osteoarthritis at the right hip, knee and sacroiliac joints. No knee joint effusion. Soft tissues are unremarkable. IMPRESSION: Mild polyarticular osteoarthritis. No acute osseous abnormality.. Reviewed, dictated and finalized at location . IGERATION TECHNICIAN
--- NOTE | 2021-02-22 01:05 | ED.EXTPRO ---
HPI - Extremity Problem General Chief complaint: Extremity Injury, Lower Stated complaint: pain in right leg Time Seen by Provider: 02/22/21 01:05 Source: patient Mode of arrival: ambulatory Limitations: no limitations History of Present Illness HPI Narrative: 70-year-old woman with a history of restless leg syndrome, type 2 diabetes and peripheral neuropathy comes in today complaining of pain in her right thigh, mostly anteriorly, that has been present for last 2 weeks. Patient states she has had no falls or injuries. Pain is neither worsened nor alleviated by movement, rest, weight-bearing, or position. She denies rash, fever, vomiting, worsening numbness, weakness, falls or injuries, and back pain. Patient's daughter came in the room and said that the patient has presented in the similar fashion before and found to have severe hyperglycemia and acidosis for which she was admitted to an ICU. MD Complaint: extremity pain Onset (ago): week(s) (2) Pain Consistency: constant Location: right and lower extremity Quality: aching Radiation: none Relieving factors: nothing Exacerbating factors: nothing Associated symptoms: denies other symptoms Related Data Home Medications Medication Instructions Recorded Confirmed gabapentin 300 mg PO TID 11/22/20 02/22/21 Allergies Allergy/AdvReac Type Severity Reaction Status Date / Time banana Allergy Severe SEVERE Verified 12/02/20 10:35 HIVES acetaminophen [From Tylenol] AdvReac Intermediate Nausea and Verified 12/02/20 10:35 Vomiting aspirin AdvReac Intermediate Nausea and Verified 12/02/20 10:35 Vomiting fluoxetine [From Prozac] AdvReac Hallucinati Verified 12/02/20 10:35 ng Review of Systems Review of Systems: All systems reviewed & are unremarkable except as noted in HPI and below Constitutional: Constitutional: Denies chills and Denies fever(s) Eyes: Eyes: Denies change in vision and Denies photophobia ENT: Denies dysphagia and Denies sore throat Cardiovascular: Cardiovascular: Denies chest pain and Denies radiating jaw, neck or arm pain Respiratory: Respiratory: Denies cough and Denies dyspnea Gastrointestinal: Gastrointestinal: Denies abdominal pain, Denies nausea and Denies vomiting Musculoskeletal: Musculoskeletal: Denies back pain, Denies arthralgias and Denies joint swelling Integumentary/Breasts: Skin/Breast: Denies pruritus, Denies erythema and Denies rash Neurologic: Denies vertigo, Denies dizziness and Denies syncope Hematologic/Lymphatic: Hematologic/Lymphatic: Denies easy bleeding and Denies easy bruising Allergic/Immunologic: Allergic/Immunologic: Denies lip swelling and Denies throat swelling PMFSH Past Medical History Medical History Anemia Depression Diabetic peripheral neuropathy Fibromyalgia Hyperlipidemia Hypertension Hypothyroidism Ovarian cancer At the age of 33, status post hysterectomy. Patient states that half an ovary was left during surgery. She required no further treatment. Restless leg syndrome Shingles Type 2 diabetes mellitus Hemoglobin A1c was > 14% 09/08/2020. C-peptide 0.63. Surgical History Surgical History History of hysterectomy History of tonsillectomy History of tubal ligation Family History Family History Grandparent Family history of premature coronary heart disease, Onset Age: 64 Father Family history of respiratory disorder, Onset Age: 87 Cerebrovascular accident Family history of Alzheimer's disease Patient's father is Family history of cardiovascular disease Mother Family history of primary malignant neoplasm of liver, Onset Age: 64 Family history of malignant neoplasm of breast in first degree relative Patient's mother is , Onset Age: 64 Family history of malignant keyona
[2021-02-22 01:20] VITALS: BP 145/82; PULSE 90; RESP 20; TEMP 37.1; O2SAT 96
[2021-02-22] MEDS: traMADol HCL (*CRX) 50 MG TABLET PO (01:32)
--- NOTE | 2021-02-22 01:50 | ECG_ITS ---
Measurements Intervals [place] Rate: 85 P: 45 ME: 184 QRS: 15 QRSD: 90 T: 35 QT: 330 QTc: 393 Interpretive Statements SINUS RHYTHM WITH SINUS ARRHYTHMIA DELAYED PRECORDIAL R/S TRANSITION BASELINE ARTIFACT- I, II, III, AVR, AVL, AVF, V1-V6 BORDERLINE ECG Electronically Signed On 02-22-2021 6:43:52 DIESEL INSPECTOR by Unruly Panchal D.O.
[2021-02-22 02:44] LABS: Basophils Absolute Auto 0.03 K/mm3 (0.00-0.10); Basophils Percent Auto 0.6 % (0.0-1.0); Eosinophils Absolute Auto 0.13 K/mm3 (0.02-0.50); Eosinophils Percent Auto 2.4 % (1.0-6.0); Hematocrit 42.4 % (35.0-42.0); Hemoglobin 13.5 g/dL (11.7-13.8); Immature Granulocyte Absolute 0.02 K/mm3 (0.00-0.00); Immature Granulocyte Percent A 0.4 % (0.0-0.0); Lymphocytes Absolute Auto 1.65 K/mm3 (1.10-4.50); Mean Corpuscular HGB Conc 31.8 g/dL (32.0-36.0); Mean Corpuscular Hemoglobin 31.1 pg (27.0-31.0); Mean Corpuscular Volume 97.7 fL (78.0-102.0); Mean Platelet Volume 9.6 fl (9.2-11.8); Monocytes Absolute Auto 0.49 K/mm3 (0.10-0.90); Monocytes Percent Auto 9.2 % (2.0-11.0); Neutrophils Percent Auto 56.4 % (50.0-70.0); Platelet Count Result 301 K/mm3 (150-420); Red Blood Count 4.34 M/mm3 (4.20-5.40); White Blood Count 5.3 K/mm3 (4.8-10.8)
[2021-02-22 03:01] LABS: Alanine Aminotransferase 20 U/L (14-59); Albumin Level 3.5 g/dL (3.4-5.0); Alkaline Phosphatase 108 U/L (46-116); Anion Gap 9 mmol/L (8-16); Aspartate Amino Transferase 25 U/L (15-37); Bilirubin,Total 0.2 mg/dL (0.00-1.00); Blood Urea Nitrogen 23 mg/dL (7-18); Carbon Dioxide 27 mmol/L (21-32); Chloride 100 mmol/L (98-108); Estimated CRCL calculation 46 ml/min; Estimated Glomerular Filt Rate > 60; Magnesium 2.3 mg/dL (1.8-2.4); Osmolality Calculated 304 mOsm/kg (285-295); Potassium 3.7 mmol/L (3.5-5.1); Sodium 136 mmol/L (136-145); Total Protein 7.3 g/dL (6.4-8.2); Troponin I 10.4 ng/L (0.00-60.4)
[2021-02-22 03:03] LABS: Glucose 442 mg/dL (70-99)
[2021-02-22] MEDS: SODIUM CHLORIDE 0.9% IV 1,000 ML 999 ML IV CONT (03:24)
[2021-02-22] MEDS: INSULIN HUMAN REGULAR (*BKC) 100 UNITS/ML 6 UNITS IV PUSH (03:27)
[2021-02-22 04:26] LABS: Glucose Point of Care > 450 mg/dl (65-105)
[2021-02-22 04:26] LABS: Glucose Point of Care 326 mg/dl (65-105)
[2021-02-22 04:34] VITALS: BP 112/62; PULSE 68; RESP 16; O2SAT 95
== END 2021-02-22 04:52 | disposition home or self-care (01) ==
PROVIDERS: Emergency Provider Emergency Medicine; PCP Family Medicine
DX: M79.604 Pain in right leg (principal); E13.65 Other specified diabetes mellitus with hyperglycemia; E78.5 Hyperlipidemia, unspecified; I10 Essential (primary) hypertension; E03.9 Hypothyroidism, unspecified; Z85.43 Personal history of malignant neoplasm of ovary
CPT/HCPCS: 36415; 73552; 80053; 82948; 83735; 84484; 85025; 87040; 93005; 96361; 96374; 99283; 99284; A9270; J1815; J7030

== ENCOUNTER 2021-04-08 20:55 | Emergency (ER) | payer MEDICARE, OTHER, SELFPAY ==
--- NOTE | ~2021-04-08 | XR_ITS ---
EXAMINATION: XR chest 1V portable DATE: 04/08/2021 21:26 INDICATION: Shortness of breath. Generalized weakness. TECHNIQUE: A single frontal view of the chest was obtained. COMPARISON: Chest single view 11/21/2020, chest CT 10/27/2020 FINDINGS: A calcified right lung nodule and calcified mediastinal lymph nodes are consistent with old granulomatous disease. There are mild airspace opacities at the lung bases. No pleural effusion or p neumothorax. The heart size is normal. IMPRESSION: 1. Mild airspace opacities at the lung bases, consistent with atelectasis/scarring versus pneumonia. Reviewed, dictated and finalized at location E. C COORDINATOR IMPRESSION: 1. Mild airspace opacities at the lung bases, consistent with atelectasis/scarr ing versus pneumonia.
[2021-04-08 21:03] VITALS: BP 149/93; PULSE 99; RESP 20; TEMP 36; O2SAT 100
--- NOTE | 2021-04-08 21:06 | ECG_ITS ---
Measurements Intervals [place] Rate: 76 P: 70 AK: 171 QRS: 32 QRSD: 90 T: 25 QT: 362 QTc: 409 Interpretive Statements SINUS RHYTHM WITH SINUS ARRHYTHMIA POSSIBLE LEFT ATRIAL ENLARGEMENT CANNOT RULE OUT SEPTAL INFARCT, AGE INDETERMINATE BORDERLINE ST-T WAVE ABNORMALITY- LAT/HIGH LAT LEADS BASELINE ARTIFACT- II, III, AVR, AVL, AVF, V1-V3 ABNORMAL ECG Electronically Signed On 04-09-2021 6:34:50 SECONDS INSPECTOR by Unruly Panchal D.O.
--- NOTE | 2021-04-08 21:18 | ED.NAVMDI ---
HPI - Nausea/Vomiting/Diarrhea General Chief complaint: Nausea/Vomiting/Diarrhea Stated complaint: AMB Time Seen by Provider: 04/08/21 21:18 Source: patient and EMS Mode of arrival: EMS Limitations: no limitations History of Present Illness HPI Narrative: this is a 70-year-old female that presents via EMS as a diabetic with an elevated blood sugar having body aches with mild abdominal pain having nausea vomiting no fever chills, patient denies having any chest pain or shortness of breath. Patient is insulin dependent currently on Lantus and short-acting insulin with history of hypertension. MD elicited complaint: nausea, vomiting and abdominal pain Onset (ago): hour(s) Description of vomiting: watery Associated nausea: Yes Associated abdominal pain: Yes Location of pain: diffuse Severity: moderate Related Data Allergies Allergy/AdvReac Type Severity Reaction Status Date / Time banana Allergy Severe SEVERE Verified 04/08/21 21:08 HIVES acetaminophen [From Tylenol] AdvReac Intermediate Nausea and Verified 04/08/21 21:08 Vomiting aspirin AdvReac Intermediate Nausea and Verified 04/08/21 21:08 Vomiting fluoxetine [From Prozac] AdvReac Hallucinati Verified 04/08/21 21:08 ng Review of Systems Review of Systems: All systems reviewed & are unremarkable except as noted in HPI and below PMFSH Past Medical History Medical History Anemia Depression Diabetic peripheral neuropathy Fibromyalgia Hyperlipidemia Hypertension Hypothyroidism Ovarian cancer At the age of 33, status post hysterectomy. Patient states that half an ovary was left during surgery. She required no further treatment. Restless leg syndrome Shingles Type 2 diabetes mellitus Hemoglobin A1c was > 14% 09/08/2020. C-peptide 0.63. Surgical History Surgical History History of hysterectomy History of tonsillectomy History of tubal ligation Family History Family History Grandparent Family history of premature coronary heart disease, Onset Age: 64 Father Family history of respiratory disorder, Onset Age: 87 Cerebrovascular accident Family history of Alzheimer's disease Patient's father is Family history of cardiovascular disease Mother Family history of primary malignant neoplasm of liver, Onset Age: 64 Family history of malignant neoplasm of breast in first degree relative Patient's mother is , Onset Age: 64 Family history of malignant neoplasm Social History Social History Social History: The patient is . She lives in her own home in [place], [place]. She does not work. She has 2 daughters, and designates her daughter Jose Posey, as her surrogate decision maker. She wishes to be a do not resuscitate. She is a lifelong nonsmoker. She drinks perhaps 4-12 alcoholic beverages a week. No drug use. Smoking status: Never smoker Alcohol intake: former Drinks per week: 10 Substance use: current Substance use type: marijuana Sexual Orientation (if Verbalized by the Patient): Straight or Heterosexual Spiritual care concerns: No Exam Const: General: no acute distress Orientation/consciousness: patient oriented x3 HENMT: Head: normal to inspection Eyes: Pupils: Equal, round and reactive pupils present EOM: EOMs intact bilaterally Direct Ophthalmoscopy: no photophobia Neck: Neck: normal visual inspection, no lymphadenopathy and no meningeal signs Chest: Chest palpation & inspection: normal inspection of the chest Resp: Effort & Inspection: normal respiratory effort Auscultation: clear to auscultation bilaterally Cardio: Rate: regular rate Rhythm: regular rhythm GI: GI Palp: Yes Soft to palpation Percussion: Yes normal to percussion :
[2021-04-08] MEDS: SODIUM CHLORIDE 0.9% IV 1,000 ML 999 ML IV CONT ×2 (21:37→22:42)
[2021-04-08] MEDS: ONDANSETRON INJ 4 MG/2 ML VIAL IV PUSH (21:37)
[2021-04-08 22:01] LABS: Base Excess ABG -20.9 mmol/L (0-2); HCO3 ABG 6.2 mmol/L (23-29); Oxygen Content ABG 20.1 %vol (16.0-22.0); Oxygen Saturation ABG 97.6 % (95-97); Oxyhemoglobin 95.8 % (94-100); PO2 ABG 115.4 mmHg (75-85); Total Hemoglobin 14.8 g/dL (12.0-18.0); pH ABG 7.13 (7.35-7.45)
[2021-04-08 22:03] LABS: Basophils Absolute Auto 0.04 K/mm3 (0.00-0.10); Basophils Percent Auto 0.3 % (0.0-1.0); Hematocrit 45.1 % (35.0-42.0); Immature Granulocyte Absolute 0.06 K/mm3 (0.00-0.00); Immature Granulocyte Percent A 0.5 % (0.0-0.0); Lymphocytes Absolute Auto 0.52 K/mm3 (1.10-4.50); Lymphocytes Percent Auto 4.1 % (18.0-42.0); Mean Corpuscular Hemoglobin 31.2 pg (27.0-31.0); Mean Corpuscular Volume 100.4 fL (78.0-102.0); Mean Platelet Volume 9.5 fl (9.2-11.8); Monocytes Absolute Auto 0.57 K/mm3 (0.10-0.90); Monocytes Percent Auto 4.5 % (2.0-11.0); Neutrophils Absolute Auto 11.5 K/mm3 (1.7-7.2); Neutrophils Percent Auto 90.6 % (50.0-70.0); Platelet Count Result 330 K/mm3 (150-420); Red Blood Count 4.49 M/mm3 (4.20-5.40); Red Cell Distribution Width 13.2 % (11.6-14.4); White Blood Count 12.7 K/mm3 (4.8-10.8)
[2021-04-08 22:06] LABS: Device ROOM AIR; Modified Allen's Test Pass; PCO2 ABG 18.8 mmHg (35-45); Site Drawn LEFT RADIAL
[2021-04-08 22:24] LABS: Lactic Acid Reflex 1.5 mmol/L (0.4-2.0)
[2021-04-08 22:27] LABS: Alanine Aminotransferase 51 U/L (14-59); Albumin Level 3.8 g/dL (3.4-5.0); Alkaline Phosphatase 120 U/L (46-116); Anion Gap 30 mmol/L (8-16); Aspartate Amino Transferase 24 U/L (15-37); Bilirubin,Total 0.4 mg/dL (0.00-1.00); Blood Urea Nitrogen 42 mg/dL (7-18); CRP < 0.5 mg/dL (0.0-0.9); Calcium 10.6 mg/dL (8.5-10.1); Carbon Dioxide 8 mmol/L (21-32); Chloride 97 mmol/L (98-108); Estimated CRCL calculation 32 ml/min; Estimated Glomerular Filt Rate 39; Magnesium 2.8 mg/dL (1.8-2.4); Phosphorus 5.9 mg/dL (2.6-4.7); Potassium 5.1 mmol/L (3.5-5.1); Sodium 135 mmol/L (136-145); Total Protein 7.8 g/dL (6.4-8.2)
[2021-04-08 22:36] LABS: Glucose > 500 mg/dL (70-99); Osmolality Calculated 313 mOsm/kg (285-295)
[2021-04-08 22:39] LABS: SARS-CoV-2 RNA PCR Negative (Negative)
[2021-04-08] MEDS: INSULIN HUMAN REGULAR (*BKC) 100 UNITS in SODIUM CHLORIDE 0.9% IV 99 ML 8.8 UNITS IV CONT (23:38)
[2021-04-08] MEDS: MORPHINE SULFATE (*CRX) 2 MG/ML INJ IV PUSH (23:57)
[2021-04-08 23:59] LABS: Appearance Urine Clear (Clear); Bilirubin Urine 1+ (Negative); Color Urine Light Yellow (Yellow); Glucose Urine UA 2+ (Negative); Ketones Urine 3+ (Negative); Leukocyte Esterase Ur Negative (Negative); Nitrate Urine Negative (Negative); Protein Urine Trace (Negative); Specific Grav Ur >= 1.030 (1.010-1.020); Urobilinogen Urine 0.2 mg/dL (0.2-1.0); pH Urine 5.5 (5.0-8.0)
[2021-04-09 00:07] LABS: Add Urine Microscopic? YES; Bacteria Urine None seen /hpf; Blood Urine Trace-Intact (Negative); Squamous Epithelial Cell Urine None seen /hpf (Few); WBC Urine 0-3 /hpf (0-3)
[2021-04-09 00:09] LABS: Troponin I 8.9 ng/L (0.00-60.4)
[2021-04-09 00:41] LABS: Glucose Point of Care > 450 mg/dl (65-105)
[2021-04-09 00:41] LABS: Glucose Point of Care 298 mg/dl (65-105)
--- NOTE | 2021-04-09 00:47 | PC.NURSE ---
Report called to Tk at [facility], pt going to bed 7 EMS transfer called to donny prater for transfer
[2021-04-09 00:53] VITALS: BP 115/55; PULSE 78; RESP 18; O2SAT 98
[2021-04-09 03:28] LABS: Glucose Point of Care 216 mg/dl (65-105)
== END 2021-04-09 01:09 | disposition short-term general hospital (02) ==
PROVIDERS: Emergency Provider Emergency Medicine; PCP Family Medicine
DX: E11.10 Type 2 diabetes mellitus with ketoacidosis without coma (principal); E78.5 Hyperlipidemia, unspecified; I10 Essential (primary) hypertension; E03.9 Hypothyroidism, unspecified; Z85.43 Personal history of malignant neoplasm of ovary
CPT/HCPCS: 36415; 36600; 71045; 80053; 81001; 82805; 82948; 83605; 83735; 84100; 84484; 85025; 86140; 87040; 93005; 96361; 96365; 96375; 99285; C9803; J2270; J2405; J7030; U0003; U0005

== ENCOUNTER 2021-04-09 01:44 | Inpatient (IN) | payer MEDICARE, OTHER, SELFPAY ==
[2021-04-09] VITALS (14 sets, daily range): BP systolic 84–131; BP diastolic 45–80; PULSE 58–78; RESP 15–19; TEMP 36.7–37.1; O2SAT 95–99; BMI 28.7
--- NOTE | 2021-04-09 02:14 | ADMGEN ---
This patient, Karly Leslie, was admitted to Intensive Care Unit-7 at 0150 on 04/09/2021. Patient/family oriented to hospital policies and general routines including ID bracelet, bed and alarms, visiting hours, pain management, procedures, bathroom and other care routines, personal items, smoking policy, room service/diet, and visiting hours. Information on how to activate the Rapid Response Team has been discussed. Patient/Family are encouraged to report perceived risks to care and to ask questions if they do not understand what they are told or what they should do.
[2021-04-09 02:23] LABS: Basophils Percent Auto 0.2 % (0.2-1.2); Hematocrit 41.4 % (37.0-47.0); Hemoglobin 13.1 g/dL (12.0-15.0); Immature Granulocyte Absolute 0.05 K/mm3 (0.00-0.031); Immature Granulocyte Percent A 0.4 % (0-0.5); Lymphocytes Absolute Auto 1.45 K/mm3 (0.9-3.2); Mean Corpuscular HGB Conc 31.6 g/dl (32-36); Mean Corpuscular Hemoglobin 30.9 pg (26-34); Mean Corpuscular Volume 97.6 fl (80-100); Mean Platelet Volume 9.2 fl (7.4-10.4); Monocytes Absolute Auto 0.9 K/mm3 (0.1-0.6); Monocytes Percent Auto 7.5 % (2.6-8.5); Neutrophils Absolute Auto 9.7 K/mm3 (1.3-6.7); Neutrophils Percent Auto 79.9 % (45.5-73.1); Platelet Count Result 255 k/mm3 (150-375); Red Blood Count 4.24 M/mm3 (4.2-5.4); Red Cell Distribution Width 13.5 % (11.5-14.5); White Blood Count 12.1 K/mm3 (4.5-10.0)
[2021-04-09 02:35] LABS: Anion Gap 13 mmol/L (8-16); Blood Urea Nitrogen 36 mg/dL (7-17); Calcium 10.7 mg/dL (8.4-10.2); Carbon Dioxide 10 mmol/L (22-30); Chloride 112 mmol/L (98-107); Estimated CRCL calculation 49 ml/min; Estimated Glomerular Filt Rate > 60; Glucose 235 mg/dL (65-110); Magnesium 2.4 mg/dL (1.6-2.3); Phosphorus 3.7 mg/dL (2.5-4.5); Potassium 5.5 mmol/L (3.4-5.0); Sodium 135 mmol/L (137-145)
[2021-04-09] MEDS: KCL 20 MEQ/D5/0.45% SOD CHL 1,000 ML 100 ML IV CONT (03:06)
[2021-04-09] MEDS: SODIUM CHLORIDE 0.9% IV 1,500 ML 500 ML IV CONT (03:23)
[2021-04-09 04:30] LABS: Glucose Point of Care 249 mg/dl (65-105)
[2021-04-09] MEDS: INSULIN HUMAN REGULAR (*BKC) 100 UNITS in SODIUM CHLORIDE 0.9% IV 99 ML IV CONT (04:32)
[2021-04-09 06:00] LABS: Glucose Point of Care 224 mg/dl (65-105)
[2021-04-09 06:55] LABS: Hemoglobin A1C > 14.0 % (<5.7)
[2021-04-09 06:56] LABS: Anion Gap 10 mmol/L (8-16); Blood Urea Nitrogen 30 mg/dL (7-17); Calcium 9.6 mg/dL (8.4-10.2); Carbon Dioxide 15 mmol/L (22-30); Chloride 111 mmol/L (98-107); Estimated CRCL calculation 64 ml/min; Estimated Glomerular Filt Rate > 60; Glucose 195 mg/dL (65-110); Potassium 4.3 mmol/L (3.4-5.0); Sodium 136 mmol/L (137-145)
[2021-04-09 07:06] LABS: Glucose Point of Care 163 mg/dl (65-105)
--- NOTE | 2021-04-09 07:19 | PM.IMHP ---
H&P: HPI History of Present Illness Date/Time: 04/09/21 07:19 Chief Complaint: Bones hurting all over Narrative: 70-year-old female with past medical history of medication noncompliance, type 2 diabetes mellitus, hypertension and multiple admissions for DKA who presented to [facility] due to generalized bone pain per her report to me. However at [place] she reported abdominal pain, nausea and vomiting. At the time of my evaluation she denied actually having abdominal pain nausea or vomiting. She states that it she does not check her sugars very often. She told me that she takes 92 units of Lantus each night. However when she was discharged from the hospital in October she was discharged on 30/8 units of Lantus. She has only been taking NovoLog once a day. Her hemoglobin A1c is been persistently uncontrolled since diagnosis in March 2019 with A1c for the most part between 12-14. She denies any chest pain, shortness of breath, cough or congestion. She does have symptoms of peripheral neuropathy with numbness and tingling in her hands and feet. She frequently has episodes of dizziness with standing the been worse over the last couple of days. She has had decreased oral intake discussed she does not feel good. She states that since she was diagnosed with diabetes and 2019 she her weight has dropped significantly. She used to weigh around 180 lb in his currently are around 140 lb. Her weight loss has been unintentional. She reports that she does not half to on but her pants to take her pants down to go to the bathroom and more. She reports her last bowel movement was on the 10th and was normally formed. She has chronic urinary frequency is unchanged from baseline. She has had increased blurred vision recently. She reports that she has not seen a primary care physician in quite some time. She states that she does not like her primary care physician and has not been going. However, the patient does have recent medication refills for Lantus and gabapentin. Although the patient is alert oriented x3 she is a poor historian. The patient also has a history of hypothyroidism. Her levothyroxine has not been refilled in many months. Review of Systems Review of Systems: 12 systems were reviewed with pertinent positives and negatives per HPI. Except as documented in the HPI, all other systems were reviewed and are negative. [facility] Past Medical History Medical History (Updated 04/09/21 @ 07:52 by Carmen Najera DO) Anemia Depression Diabetic peripheral neuropathy Fibromyalgia Hyperlipidemia Hypertension Hypothyroidism Memory change On Aricept Ovarian cancer At the age of 33, status post hysterectomy. Patient states that half an ovary was left during surgery. She required no further treatment. Pneumonia due to COVID-19 virus (~09/2020) Restless leg syndrome Shingles Type 2 diabetes mellitus Hemoglobin A1c was > 14% 04/09/2021 C-peptide 0.63. Surgical History Surgical History History of hysterectomy History of tonsillectomy History of tubal ligation Family History Family History Grandparent Family history of premature coronary heart disease, Onset Age: 64 Father Family history of respiratory disorder, Onset Age: 87 Family history of cardiovascular disease Patient's father is Family history of Alzheimer's disease Cerebrovascular accident Mother Family history of primary malignant neoplasm of liver, Onset Age: 64 Family history of malignant neoplasm Patient's mother is , Onset Age: 64 Family history of malignant neoplasm of breast in first degree relative Sibling Heart attack Sibling Heart attack Social History Social History Social History: The patient is . She lives in her own home in [place], [place]. She
[2021-04-09 08:27] LABS: Glucose Point of Care 160 mg/dl (65-105)
[2021-04-09] MEDS: GABAPENTIN 300 MG CAPSULE PO ×3 (09:08→17:25)
[2021-04-09] MEDS: PANTOPRAZOLE 40 MG TABLET PO (09:08)
[2021-04-09 09:12] LABS: Glucose Point of Care 155 mg/dl (65-105)
[2021-04-09 10:09] LABS: Glucose Point of Care 125 mg/dl (65-105)
[2021-04-09 10:29] LABS: Anion Gap 2 mmol/L (8-16); Blood Urea Nitrogen 29 mg/dL (7-17); Calcium 9.6 mg/dL (8.4-10.2); Carbon Dioxide 16 mmol/L (22-30); Chloride 114 mmol/L (98-107); Estimated CRCL calculation 75 ml/min; Estimated Glomerular Filt Rate > 60; Glucose 134 mg/dL (65-110); Sodium 132 mmol/L (137-145)
[2021-04-09] MEDS: KCL 20 MEQ/D5/0.45% SOD CHL 1,000 ML 150 ML IV CONT (10:30)
[2021-04-09] MEDS: LACTATED RINGERS 500 ML 999 ML IV CONT ×2 (10:35→11:36)
[2021-04-09 11:04] LABS: Glucose Point of Care 106 mg/dl (65-105)
--- NOTE | 2021-04-09 11:32 | WPDCNINT ---
Assessment and Plan Assessment and plan (1) Diabetic ketoacidosis, type II: Qualifiers: Diabetes mellitus complication detail: without coma Qualified Code(s): E11.10 - Type 2 diabetes mellitus with ketoacidosis without coma Code(s): E11.10 - Type 2 diabetes mellitus with ketoacidosis without coma Status: Acute Assessment and Plan: Patient presented the outside hospital in [facility] with complains of nausea, vomiting, diarrhea, was found to have blood sugars greater than 500 and was diagnosed with diabetic ketoacidosis. Patient was transferred to the ICU at [facility] which she was given 3 L of IV fluid bolus and started on insulin infusion -this morning her gap has closed, CO2 is still 16 and patient feels better, will transition to long-acting insulin and high-dose sliding scale insulin -will allow to have diabetic diet -music educator and technology applications engineer to follow (2) Hypothyroidism: Qualifiers: Hypothyroidism type: unspecified Qualified Code(s): E03.9 - Hypothyroidism, unspecified Code(s): E03.9 - Hypothyroidism, unspecified Status: Acute (3) Depression: Code(s): F32.A - Depression, unspecified Status: Acute (4) Restless leg syndrome: Code(s): G25.81 - Restless legs syndrome Status: Acute Assessment and Plan: Continue gabapentin and pramipexole (5) Memory deficit: Code(s): R41.3 - Other amnesia Status: Acute Assessment and Plan: Continue donepezil Additional Plan Discussed with patient updated with her condition and plan of care. Code status: DNR Critical care time spent: 44 minutes This dictation may have been done utilizing a voice recognition system. Attempts have been made to correct errors. However, there may be uncorrected grammatical, spelling, and recognition errors present. Due to a high probability of clinically significant, life threatening deterioration, the patient required my highest level of preparedness to intervene emergently and I personally spent this critical care time directly and personally managing the patient. This critical care time included obtaining a history; examining the patient; pulse oximetry; ordering and review of studies; arranging urgent treatment with development of a management plan; evaluation of patient's response to treatment; frequent reassessment; and discussions with other providers. It was exclusive of separately billable procedures and treating other patients and teaching time. Please see Assessment and Plan section and the rest of the note for further information on patient assessment and treatment Die Lay Out Worker Consult Note Consult date: 04/09/21 Time Seen: 07:05 Reason for consult: Diabetic ketoacidosis, nausea, vomiting, diarrhea HPI: Karly Leslie is a 70 year old female with significant past medical history of diabetes, DKA, depression, diabetic peripheral neuropathy, anemia, fibromyalgia, hyperlipidemia, essential hypertension, hypothyroidism, history of shingles and ovarian CA presented the outside [facility] with abdominal pain, nausea, vomiting, diarrhea on 04/08/2021. She was found to be in diabetic ketoacidosis. Patient was transferred to the ICU at [facility], was given 3 L IV fluid bolus started on insulin infusion. Patient's hemoglobin A1c has been elevated, it is > 14.0 this admission. Patient is noncompliant and has been in the hospital 7 times the last EF of hyperglycemia/DKA. UA was negative, patient was negative for COVID PCR. Chest x-ray on admission showed Mild airspace opacities at the lung bases, consistent with atelectasis/scarring versus pneumonia. 04/09/2021: Patient seen examined the ICU, is awake, alert, oriented x3, answers to questions appropriately and nonfocal. Patient denies any nausea, abdominal pain, diarrhea vomiting at this time. She feels much better, denies any chest pain, shortness of breath. Patient does
[2021-04-09] MEDS: INSULIN GLARGINE (*BKC) 100 UNITS/ML 35 UNITS SUB-Q (11:38)
[2021-04-09 12:22] LABS: Glucose Point of Care 74 mg/dl (65-105)
[2021-04-09] MEDS: hetaSTARCH 6%/NACL 500 ML 250 ML IV CONT (13:26)
[2021-04-09 14:41] LABS: Glucose Point of Care 109 mg/dl (65-105)
[2021-04-09 17:21] LABS: Glucose Point of Care 79 mg/dl (65-105)
[2021-04-09] MEDS: PRAMIPEXOLE 1 MG TABLET 3 MG PO (20:15)
[2021-04-09] MEDS: DONEPEZIL HCL 5 MG TABLET PO (20:15)
[2021-04-09 20:25] LABS: Glucose Point of Care 309 mg/dl (65-105)
[2021-04-09 23:31] LABS: Glucose Point of Care 222 mg/dl (65-105)
[2021-04-09] MEDS: INSULIN ASPART (*BKC) 100 UNITS/ML SUB-Q (23:37)
[2021-04-10] VITALS (13 sets, daily range): BP systolic 109–140; BP diastolic 65–71; PULSE 58–86; RESP 16–21; TEMP 36.2–36.9; O2SAT 96–99
[2021-04-10 04:17] LABS: Basophils Percent Auto 0.2 % (0.2-1.2); Eosinophils Absolute Auto 0.2 K/mm3 (0-0.3); Eosinophils Percent Auto 2.3 % (0-4.4); Hematocrit 34.8 % (37.0-47.0); Immature Granulocyte Absolute 0.01 K/mm3 (0.00-0.031); Immature Granulocyte Percent A 0.2 % (0-0.5); Lymphocytes Absolute Auto 2.25 K/mm3 (0.9-3.2); Lymphocytes Percent Auto 35.2 % (18.3-44.2); Mean Corpuscular HGB Conc 31.6 g/dl (32-36); Mean Corpuscular Hemoglobin 31.2 pg (26-34); Mean Corpuscular Volume 98.6 fl (80-100); Mean Platelet Volume 9.3 fl (7.4-10.4); Monocytes Absolute Auto 0.5 K/mm3 (0.1-0.6); Monocytes Percent Auto 8.3 % (2.6-8.5); Neutrophils Absolute Auto 3.5 K/mm3 (1.3-6.7); Neutrophils Percent Auto 53.8 % (45.5-73.1); Platelet Count Result 179 k/mm3 (150-375); Red Blood Count 3.53 M/mm3 (4.2-5.4); Red Cell Distribution Width 14.2 % (11.5-14.5); White Blood Count 6.4 K/mm3 (4.5-10.0)
[2021-04-10 04:37] LABS: Lactic Acid Reflex 1.6 mmol/L (0.7-2.1)
[2021-04-10 04:42] LABS: Alanine Aminotransferase 23 U/L (4-35); Albumin Level 2.8 g/dL (3.5-5.1); Alkaline Phosphatase 72 U/L (38-126); Anion Gap 5 mmol/L (8-16); Aspartate Amino Transferase 27 U/L (14-36); Bilirubin,Total 0.4 mg/dL (0.2-1.3); Blood Urea Nitrogen 16 mg/dL (7-17); Calcium 9.6 mg/dL (8.4-10.2); Carbon Dioxide 20 mmol/L (22-30); Chloride 111 mmol/L (98-107); Estimated CRCL calculation 75 ml/min; Estimated Glomerular Filt Rate > 60; Glucose 142 mg/dL (65-110); Magnesium 2.2 mg/dL (1.6-2.3); Phosphorus 1.4 mg/dL (2.5-4.5); Potassium 3.7 mmol/L (3.4-5.0); Sodium 136 mmol/L (137-145)
[2021-04-10 07:42] LABS: Glucose Point of Care 105 mg/dl (65-105)
--- NOTE | 2021-04-10 07:45 | PC.NURSE ---
This patient, Karly Leslie, was transferred to [[facility] ] on 04/10/21 at 0735. Personal belongings sent with patient. Report given to [Kimberly ]. Appropriate documentation sent with patient.
[2021-04-10 08:08] LABS: Glucose Point of Care 78 mg/dl (65-105)
[2021-04-10] MEDS: GABAPENTIN 300 MG CAPSULE PO ×3 (08:23→16:47)
[2021-04-10] MEDS: PANTOPRAZOLE 40 MG TABLET PO (08:24)
[2021-04-10] MEDS: INSULIN GLARGINE (*BKC) 100 UNITS/ML 35 UNITS SUB-Q (08:39)
[2021-04-10 12:17] LABS: Glucose Point of Care 285 mg/dl (65-105)
[2021-04-10] MEDS: INSULIN ASPART (*BKC) 100 UNITS/ML SUB-Q ×2 (12:19→16:44)
[2021-04-10] MEDS: polyethylene glycoL 3350 17 GM POWD.PACK PO (14:19)
--- NOTE | 2021-04-10 16:20 | PM.IMPN ---
Progress Note: A&P Assessment and Plan (1) Diabetic ketoacidosis, type II: Qualifiers: Diabetes mellitus complication detail: without coma Qualified Code(s): E11.10 - Type 2 diabetes mellitus with ketoacidosis without coma Code(s): E11.10 - Type 2 diabetes mellitus with ketoacidosis without coma Status: Acute (2) Hypothyroidism: Qualifiers: Hypothyroidism type: unspecified Qualified Code(s): E03.9 - Hypothyroidism, unspecified Code(s): E03.9 - Hypothyroidism, unspecified Status: Acute (3) Acute dehydration: Code(s): E86.0 - Dehydration Status: Acute Additional Plan Patient has a recurrent DKA secondary to noncompliance with medication regimen. Patient had 3 L fluid ordered from the outside facility but only received 1.5 L. An additional 1.5 L of isotonic fluids has been ordered. After this patient will be placed on IV fluids per DKA protocol. Patient's blood pressures were mildly low likely due to hypovolemia and this is subsequently resolved after volume resuscitation. Her will continue to monitor serial BMPs and monitor for normalization of bicarb and anion gap closure. Patient would benefit from supervised living situation verses medication/in-home assistance support. Patient has been admitted to the ICU and electrical and electronic assembler has been consulted. Patient did have some acute kidney injury due to dehydration this is resolved after fluid resuscitation. Patient is historically noncompliant with thyroid replacement. Will check TSH. 04/10/2021 Patient is glucose status and acid-base status has improved She is downgraded to step-down bed Blood glucose not at goal Will cover with correctional overnight and reassess in a.m. Patient noted to have low Phos on labs K-Phos ordered Anticipate discharge tomorrow Subjective Date/time seen: 04/10/21 16:20 Patient very upset states that her gold necklace has disappeared. The last time she side it was placed into a specimen bag and placed into her purse on the window ledge. Patient reassured that we will continue to look for it. Exam Narrative: General: No acute distress, height weight proportionate HEENT: Mmm, no oral pharyngeal erythema, no scleral icterus Respiratory: Clear to auscultation bilaterally, no increased work of breathing Cardiovascular: S1-S2 Regular rate, regular rhythm Gastrointestinal: Soft, nontender, nondistended, positive bowel sounds Skin: Generalized pallor, non jaundice Musculoskeletal: No clubbing, cyanosis or edema Neurological: Alert orient x3, speech is clear, moves all extremities equally Psychiatric: Mood and affect congruent patient is tearful Objective Data Vital Signs Vital Signs: Vital Signs - 24 hr 04/09/21 18:00 04/09/21 20:00 04/09/21 22:00 Temperature 98.6 F Pulse Rate 70 74 71 Respiratory Rate 15 19 Blood Pressure 97/48 L 93/52 L Pulse Oximetry 97 95 04/09/21 23:19 04/10/21 00:00 04/10/21 02:00 Temperature 98.3 F Pulse Rate 77 63 63 Respiratory Rate 18 Blood Pressure 131/80 Pulse Oximetry 96 04/10/21 04:00 04/10/21 06:00 04/10/21 08:00 Temperature 98.4 F Pulse Rate 58 L 64 58 L Respiratory Rate 16 18 Blood Pressure 109/68 140/68 Pulse Oximetry 98 98 04/10/21 10:00 04/10/21 12:00 04/10/21 14:00 Temperature Pulse Rate 64 64 64 Respiratory Rate 21 H Blood Pressure 120/70 Pulse Oximetry 96 04/10/21 16:00 Temperature Pulse Rate 75 Respiratory Rate 16 Blood Pressure 122/67 Pulse Oximetry 96 Intake/Output Intake/Output: Intake & Output 04/07/21 04/08/21 04/09/21 04/10/21 23:59 23:59 23:59 23:59 Intake Total 4741.9 720 Output Total 1050 Balance 3691.9 720 Meds/Results Medications: Active Medications Generic Name Dose Route Start Last Admin Trade Name Freq PRN Reason Stop Dose Admin Dextrose 12.5 gm 04/09/21 01:54 Dextrose 50% 25 Gm/50 Ml Syringe IV PUSH PRN PRN Hypoglycemia
[2021-04-10 16:29] LABS: Glucose Point of Care 238 mg/dl (65-105)
[2021-04-10] MEDS: POTASSIUM PHOS,M-BASIC-D-BASIC 20 MMOL in SODIUM CHLORIDE 0.9% IV 250 ML 64.17 MMOL IVPB (16:47)
--- NOTE | 2021-04-10 16:52 | PC.NURSE ---
This patient, Karly Leslie, was transferred to [[id number] ] on 04/10/21 at 1652. Personal belongings sent with patient. Report given to [Elenita ]. Appropriate documentation sent with patient.
--- NOTE | 2021-04-10 17:11 | PC.NURSE ---
This patient, Karly Leslie, was received from [facility] on 04/10/21 at 1712. Patient/family oriented to unit policies and routines. Report from SAMMY Harris.
[2021-04-10 19:54] LABS: Glucose Point of Care 237 mg/dl (65-105)
[2021-04-10] MEDS: PRAMIPEXOLE 1 MG TABLET 3 MG PO (21:03)
[2021-04-10] MEDS: DONEPEZIL HCL 5 MG TABLET PO (21:03)
[2021-04-11] VITALS (14 sets, daily range): BP systolic 130–153; BP diastolic 64–76; PULSE 58–86; RESP 18–20; TEMP 36.3–36.9; O2SAT 94–99
[2021-04-11 05:43] LABS: Basophils Percent Auto 0.4 % (0.2-1.2); Eosinophils Absolute Auto 0.1 K/mm3 (0-0.3); Eosinophils Percent Auto 2.5 % (0-4.4); Hematocrit 35.9 % (37.0-47.0); Hemoglobin 11.3 g/dL (12.0-15.0); Immature Granulocyte Absolute 0.01 K/mm3 (0.00-0.031); Immature Granulocyte Percent A 0.2 % (0-0.5); Lymphocytes Percent Auto 39.3 % (18.3-44.2); Mean Corpuscular HGB Conc 31.5 g/dl (32-36); Mean Corpuscular Volume 98.4 fl (80-100); Monocytes Absolute Auto 0.5 K/mm3 (0.1-0.6); Monocytes Percent Auto 9.7 % (2.6-8.5); Neutrophils Absolute Auto 2.3 K/mm3 (1.3-6.7); Neutrophils Percent Auto 47.9 % (45.5-73.1); Platelet Count Result 162 k/mm3 (150-375); Red Blood Count 3.65 M/mm3 (4.2-5.4); Red Cell Distribution Width 13.8 % (11.5-14.5); White Blood Count 4.8 K/mm3 (4.5-10.0)
[2021-04-11 05:48] LABS: Alanine Aminotransferase 24 U/L (4-35); Albumin Level 2.9 g/dL (3.5-5.1); Alkaline Phosphatase 76 U/L (38-126); Anion Gap 2 mmol/L (8-16); Aspartate Amino Transferase 37 U/L (14-36); Bilirubin,Total 0.3 mg/dL (0.2-1.3); Blood Urea Nitrogen 12 mg/dL (7-17); Calcium 9.3 mg/dL (8.4-10.2); Carbon Dioxide 24 mmol/L (22-30); Chloride 111 mmol/L (98-107); Estimated CRCL calculation 89 ml/min; Estimated Glomerular Filt Rate > 60; Glucose 100 mg/dL (65-110); Magnesium 2.2 mg/dL (1.6-2.3); Phosphorus 2.5 mg/dL (2.5-4.5); Potassium 3.5 mmol/L (3.4-5.0); Sodium 137 mmol/L (137-145)
[2021-04-11 08:32] LABS: Glucose Point of Care 90 mg/dl (65-105)
[2021-04-11] MEDS: PANTOPRAZOLE 40 MG TABLET PO (10:30)
[2021-04-11] MEDS: GABAPENTIN 300 MG CAPSULE PO ×3 (10:30→16:37)
[2021-04-11] MEDS: INSULIN ASPART (*BKC) 100 UNITS/ML SUB-Q ×2 (12:14→17:51)
[2021-04-11 12:46] LABS: Glucose Point of Care 346 mg/dl (65-105)
--- NOTE | 2021-04-11 16:21 | PM.IMPN ---
Progress Note: A&P Assessment and Plan (1) Diabetic ketoacidosis, type II: Qualifiers: Diabetes mellitus complication detail: without coma Qualified Code(s): E11.10 - Type 2 diabetes mellitus with ketoacidosis without coma Code(s): E11.10 - Type 2 diabetes mellitus with ketoacidosis without coma Status: Acute (2) Hypothyroidism: Qualifiers: Hypothyroidism type: unspecified Qualified Code(s): E03.9 - Hypothyroidism, unspecified Code(s): E03.9 - Hypothyroidism, unspecified Status: Acute (3) Acute dehydration: Code(s): E86.0 - Dehydration Status: Acute Additional Plan Patient has a recurrent DKA secondary to noncompliance with medication regimen. Patient had 3 L fluid ordered from the outside facility but only received 1.5 L. An additional 1.5 L of isotonic fluids has been ordered. After this patient will be placed on IV fluids per DKA protocol. Patient's blood pressures were mildly low likely due to hypovolemia and this is subsequently resolved after volume resuscitation. Her will continue to monitor serial BMPs and monitor for normalization of bicarb and anion gap closure. Patient would benefit from supervised living situation verses medication/in-home assistance support. Patient has been admitted to the ICU and business resiliency manager has been consulted. Patient did have some acute kidney injury due to dehydration this is resolved after fluid resuscitation. Patient is historically noncompliant with thyroid replacement. Will check TSH. 04/10/2021 Patient is glucose status and acid-base status has improved She is downgraded to step-down bed Blood glucose not at goal Will cover with correctional overnight and reassess in a.m. Patient noted to have low Phos on labs K-Phos ordered Anticipate discharge tomorrow 04/11/21 HgA1c >14 suspect noncompliance w insulin BG >300 5U regular insulin hold dc adjust insulin regimen restart metformin PT NEEDS TO BE SEEN BY ENDOCRINE AND TO BE COMPLIANT will try to dc in am if BG improved Subjective Date/time seen: 04/11/21 16:22 no mention of her necklace today. BG remains elevated, will reassess insulin needs prior to dc Exam Narrative: General: No acute distress, height weight proportionate HEENT: Mmm, no oral pharyngeal erythema, no scleral icterus Respiratory: Clear to auscultation bilaterally, no increased work of breathing Cardiovascular: S1-S2 Regular rate, regular rhythm Gastrointestinal: Soft, nontender, nondistended, positive bowel sounds Skin: Generalized pallor, non jaundice Musculoskeletal: No clubbing, cyanosis or edema Neurological: Alert orient x3, speech is clear, moves all extremities equally Psychiatric: Mood and affect congruent patient is tearful Objective Data Vital Signs Vital Signs: Vital Signs - 24 hr 04/10/21 18:00 04/10/21 20:00 04/10/21 22:00 Temperature 97.2 F L Pulse Rate 77 64 86 Respiratory Rate 18 Blood Pressure 125/71 Pulse Oximetry 99 04/10/21 23:35 04/11/21 00:00 04/11/21 02:00 Temperature 97.5 F L Pulse Rate 74 86 62 Respiratory Rate 20 Blood Pressure 129/65 Pulse Oximetry 99 04/11/21 02:55 04/11/21 04:00 04/11/21 06:00 Temperature 97.4 F L Pulse Rate 58 L 59 L Respiratory Rate 20 Blood Pressure 144/64 H Pulse Oximetry 98 99 04/11/21 08:00 04/11/21 10:00 04/11/21 12:00 Temperature 98.4 F 98.4 F Pulse Rate 82 70 66 Respiratory Rate 18 18 Blood Pressure 130/71 138/74 Pulse Oximetry 99 99 04/11/21 14:00 Temperature Pulse Rate 74 Respiratory Rate Blood Pressure Pulse Oximetry Intake/Output Intake/Output: Intake & Output 04/08/21 04/09/21 04/10/21 04/11/21 23:59 23:59 23:59 23:59 Intake Total 4741.9 720 480 Output Total 1050 Balance 3691.9 720 480 Meds/Results Medications: Active Medications Generic Name Dose Route Start Last Admin Trade Name Freq PRN Reason Stop Dose Admin Dextrose
[2021-04-11] MEDS: INSULIN HUMAN REGULAR (*BKC) 100 UNITS/ML SUB-Q (16:35)
[2021-04-11 16:59] LABS: Glucose Point of Care 340 mg/dl (65-105)
[2021-04-11 17:38] LABS: Glucose Point of Care 270 mg/dl (65-105)
[2021-04-11 20:24] LABS: Glucose Point of Care 191 mg/dl (65-105)
[2021-04-11] MEDS: PRAMIPEXOLE 1 MG TABLET 3 MG PO (20:34)
[2021-04-11] MEDS: DONEPEZIL HCL 5 MG TABLET PO (20:34)
[2021-04-12] VITALS (12 sets, daily range): BP systolic 111–147; BP diastolic 56–97; PULSE 57–90; RESP 18–20; TEMP 35.7–36.2; O2SAT 95–99
[2021-04-12 05:20] LABS: Basophils Percent Auto 0.4 % (0.2-1.2); Eosinophils Absolute Auto 0.2 K/mm3 (0-0.3); Eosinophils Percent Auto 2.9 % (0-4.4); Hematocrit 36.9 % (37.0-47.0); Immature Granulocyte Absolute 0.01 K/mm3 (0.00-0.031); Immature Granulocyte Percent A 0.2 % (0-0.5); Lymphocytes Absolute Auto 1.84 K/mm3 (0.9-3.2); Lymphocytes Percent Auto 35.5 % (18.3-44.2); Mean Corpuscular HGB Conc 32.5 g/dl (32-36); Mean Corpuscular Hemoglobin 30.8 pg (26-34); Mean Corpuscular Volume 94.9 fl (80-100); Mean Platelet Volume 9.5 fl (7.4-10.4); Monocytes Absolute Auto 0.5 K/mm3 (0.1-0.6); Monocytes Percent Auto 9.1 % (2.6-8.5); Neutrophils Absolute Auto 2.7 K/mm3 (1.3-6.7); Neutrophils Percent Auto 51.9 % (45.5-73.1); Platelet Count Result 178 k/mm3 (150-375); Red Blood Count 3.89 M/mm3 (4.2-5.4); Red Cell Distribution Width 13.5 % (11.5-14.5); White Blood Count 5.2 K/mm3 (4.5-10.0)
[2021-04-12 05:35] LABS: Anion Gap 7 mmol/L (8-16); Blood Urea Nitrogen 14 mg/dL (7-17); Calcium 9.5 mg/dL (8.4-10.2); Carbon Dioxide 27 mmol/L (22-30); Chloride 99 mmol/L (98-107); Estimated CRCL calculation 89 ml/min; Estimated Glomerular Filt Rate > 60; Glucose 362 mg/dL (65-110); Magnesium 2.1 mg/dL (1.6-2.3); Sodium 133 mmol/L (137-145)
[2021-04-12 08:10] LABS: Glucose Point of Care 340 mg/dl (65-105)
[2021-04-12] MEDS: INSULIN ASPART (*BKC) 100 UNITS/ML SUB-Q ×2 (08:57→12:05)
[2021-04-12] MEDS: GABAPENTIN 300 MG CAPSULE PO ×2 (09:06→12:05)
[2021-04-12] MEDS: INSULIN GLARGINE (*BKC) 100 UNITS/ML 35 UNITS SUB-Q (09:06)
[2021-04-12] MEDS: PANTOPRAZOLE 40 MG TABLET PO (09:07)
[2021-04-12 11:54] LABS: Glucose Point of Care 286 mg/dl (65-105)
[2021-04-12 15:17] LABS: Glucose Point of Care 259 mg/dl (65-105)
--- NOTE | 2021-04-12 15:33 | PM.DS ---
DS: Admitting Diagnosis Discharge Date 04/12/21 Admitting Diagnosis (1) Diabetic ketoacidosis, type II: Qualifiers: Diabetes mellitus complication detail: without coma Qualified Code(s): E11.10 - Type 2 diabetes mellitus with ketoacidosis without coma Code(s): E11.10 - Type 2 diabetes mellitus with ketoacidosis without coma Status: Acute (2) Hypothyroidism: Qualifiers: Hypothyroidism type: unspecified Qualified Code(s): E03.9 - Hypothyroidism, unspecified Code(s): E03.9 - Hypothyroidism, unspecified Status: Acute (3) Acute dehydration: Code(s): E86.0 - Dehydration Status: Acute DS: Discharge Diagnosis Discharge Diagnosis (1) Insulin dependent diabetes mellitus: Status: Acute (2) Do not intubate, cardiopulmonary resuscitation (CPR)-only code status: Code(s): Z78.9 - Other specified health status Status: Acute (3) Restless leg syndrome: Code(s): G25.81 - Restless legs syndrome Status: Acute (4) Diabetic ketoacidosis, type II: Qualifiers: Diabetes mellitus complication detail: without coma Qualified Code(s): E11.10 - Type 2 diabetes mellitus with ketoacidosis without coma Code(s): E11.10 - Type 2 diabetes mellitus with ketoacidosis without coma Status: Acute (5) Hypothyroidism: Qualifiers: Hypothyroidism type: unspecified Qualified Code(s): E03.9 - Hypothyroidism, unspecified Code(s): E03.9 - Hypothyroidism, unspecified Status: Acute (6) Memory deficit: Code(s): R41.3 - Other amnesia Status: Acute (7) MDD (major depressive disorder), recurrent episode, moderate: Code(s): F33.1 - Major depressive disorder, recurrent, moderate Status: Acute (8) Non-compliance: Code(s): Z91.19 - Patient's noncompliance with other medical treatment and regimen Status: Acute (9) Acute kidney injury: Code(s): N17.9 - Acute kidney failure, unspecified Status: Resolved (10) Type 2 diabetes mellitus: Qualifiers: Diabetes mellitus complication status: without complication Diabetes mellitus usp insulin use: without damage assessor use Qualified Code(s): E11.9 - Type 2 diabetes mellitus without complications Code(s): E11.9 - Type 2 diabetes mellitus without complications Status: Acute (11) Hypokalemia: Code(s): E87.6 - Hypokalemia Status: Acute (12) Hypophosphatemia: Code(s): E83.39 - Other disorders of phosphorus metabolism Status: Acute (13) Diabetes mellitus with hyperglycemia: Qualifiers: Diabetes mellitus damage assessor insulin use: with usp use Diabetes mellitus type: type 2 Qualified Code(s): E11.65 - Type 2 diabetes mellitus with hyperglycemia; Z79.4 - core java engineer (current) use of insulin Code(s): E11.65 - Type 2 diabetes mellitus with hyperglycemia Status: Acute DS: Summary Hospital Course Reason for hospitalization: 04/12/21 Hospital Course: Patient has a recurrent DKA secondary to noncompliance with medication regimen. Patient had 3 L fluid ordered from the outside facility but only received 1.5 L. An additional 1.5 L of isotonic fluids has been ordered. After this patient will be placed on IV fluids per DKA protocol. Patient's blood pressures were mildly low likely due to hypovolemia and this is subsequently resolved after volume resuscitation. Her will continue to monitor serial BMPs and monitor for normalization of bicarb and anion gap closure. Patient would benefit from supervised living situation verses medication/in-home assistance support. Patient has been admitted to the ICU and landscape architect and planner has been consulted. Patient did have some acute kidney injury due to dehydration this is resolved after fluid resuscitation. Patient is historically noncompliant with thyroid replacement. Will check TSH. 04/10/2021 Patient's glucose status and acid-base status h
== END 2021-04-12 16:21 | disposition home or self-care (01) | DRG 638 ==
LOC: ANHICU 12:40 → ANHIMU 04-12 15:31 → ANHCPC 04-13 12:37 → ANHICU 04-13 12:37 → ANHIMU 04-13 12:37
PROVIDERS: Internal Medicine; Admitting Provider Internal Medicine; PCP Family Medicine; Visit Provider Hospitalist
DX: E11.10 Type 2 diabetes mellitus with ketoacidosis without coma (principal); F33.1 Major depressive disorder, recurrent, moderate; N17.9 Acute kidney failure, unspecified; E03.9 Hypothyroidism, unspecified; E86.0 Dehydration; G25.81 Restless legs syndrome; R41.3 Other amnesia; E87.6 Hypokalemia; E83.39 Other disorders of phosphorus metabolism; E11.65 Type 2 diabetes mellitus with hyperglycemia; Z91.19 Patient's noncompliance with other medical treatment and regimen; Z79.4 Long term (current) use of insulin; Z91.14 Patient's other noncompliance with medication regimen
CPT/HCPCS: 36415; 80048; 80053; 82948; 83036; 83605; 83735; 84100; 84443; 85025; 96365; 96366; 96368; A9270; G0378; G0379; J1815; J3480; J7030; J7050; J7120

== ENCOUNTER 2021-05-16 20:05 | Emergency (ER) | payer MEDICARE, OTHER, SELFPAY ==
--- NOTE | 2021-05-16 20:18 | ED.EXTPRO ---
HPI - Extremity Problem General Chief complaint: Extremity Problem,Nontraumatic Stated complaint: L hand numbness/hardness Time Seen by Provider: 05/16/21 20:22 Source: patient and RN notes reviewed Mode of arrival: ambulatory Limitations: no limitations History of Present Illness HPI Narrative: Patient states she has been having some heaviness and tingling in her left hand over the hypothenar eminence seems to extend over half of her middle finger and the 4th and 5th fingers. Sometimes it radiates back up towards her elbow on the medial aspect. She says that she was doing some gardening outside last week. She got a history of diabetes. Complaint: extremity pain Onset (ago): week(s) (1) Pain Consistency: constant Location: left and upper extremity (left hand) Quality: dull Radiation: proximal Relieving factors: nothing Exacerbating factors: nothing Associated symptoms: denies other symptoms Related Data Home Medications Medication Instructions Recorded Confirmed donepezil 5 mg PO HS 04/09/21 05/16/21 Allergies Allergy/AdvReac Type Severity Reaction Status Date / Time banana Allergy Severe SEVERE Verified 05/16/21 20:25 HIVES acetaminophen [From Tylenol] AdvReac Intermediate Nausea and Verified 05/16/21 20:25 Vomiting aspirin AdvReac Intermediate Nausea and Verified 05/16/21 20:25 Vomiting fluoxetine [From Prozac] AdvReac Hallucinati Verified 05/16/21 20:25 ng Review of Systems Review of Systems: All systems reviewed & are unremarkable except as noted in HPI and below PMFSH Past Medical History Medical History Anemia Depression Diabetic peripheral neuropathy Fibromyalgia Hyperlipidemia Hypertension Hypothyroidism Memory change On Aricept Ovarian cancer At the age of 33, status post hysterectomy. Patient states that half an ovary was left during surgery. She required no further treatment. Pneumonia due to COVID-19 virus (~09/2020) Restless leg syndrome Shingles Type 2 diabetes mellitus Hemoglobin A1c was > 14% 04/09/2021 C-peptide 0.63. Surgical History Surgical History History of hysterectomy History of tonsillectomy History of tubal ligation Family History Family History Grandparent Family history of premature coronary heart disease, Onset Age: 64 Father Family history of respiratory disorder, Onset Age: 87 Family history of cardiovascular disease Patient's father is Family history of Alzheimer's disease Cerebrovascular accident Mother Family history of primary malignant neoplasm of liver, Onset Age: 64 Family history of malignant neoplasm Patient's mother is , Onset Age: 64 Family history of malignant neoplasm of breast in first degree relative Sibling Heart attack Sibling Heart attack Social History Social History Social History: The patient is . She lives in her own home in [place], [place]. She does not work. She has 2 daughters, and designates her daughter Jose Posey, as her surrogate decision maker. She wishes to be a do not resuscitate. She is a lifelong nonsmoker. She drinks perhaps 4-12 alcoholic beverages a week. No drug use. Smoking status: Never smoker Alcohol intake: current Drinks per week: 4 Substance use: current Substance use type: does not use Sexual Orientation (if Verbalized by the Patient): Straight or Heterosexual Spiritual care concerns: No Exam Const: General: no acute distress and alert Nutritional Appearance: well nourished and thin Orientation/consciousness: patient oriented x3 HENMT: Head: normal to inspection Ears: external ears normal Eyes: Conjunctivae: conjunctivae normal Pupils: Equal, round and reactive pupils present EOM: EOMs int
[2021-05-16 20:21] VITALS: BP 134/81; PULSE 91; RESP 16; TEMP 36.7; O2SAT 96
[2021-05-16 20:50] VITALS: BP 129/66; PULSE 85; RESP 16; TEMP 36.7; O2SAT 97
== END 2021-05-16 20:51 | disposition home or self-care (01) ==
PROVIDERS: Emergency Provider Emergency Medicine
DX: G56.02 Carpal tunnel syndrome, left upper limb (principal); E78.5 Hyperlipidemia, unspecified; I10 Essential (primary) hypertension; E03.9 Hypothyroidism, unspecified; E11.9 Type 2 diabetes mellitus without complications
CPT/HCPCS: 29125; 99283

== ENCOUNTER 2021-05-20 14:03 | Emergency (ER) | payer MEDICARE, OTHER, SELFPAY ==
[2021-05-20 14:12] VITALS: BP 135/85; PULSE 83; RESP 16; TEMP 36.8; O2SAT 95
--- NOTE | 2021-05-20 14:41 | ED.EXTPRO ---
HPI - Extremity Problem General Chief complaint: Extremity Problem,Nontraumatic Stated complaint: L hand tingle Time Seen by Provider: 05/20/21 14:21 History of Present Illness HPI Narrative: 70 y/o female presents to the ER today for complaints of numbness and tingling localized to left hand and heaviness feeling in the palm of her hand. She has normal sensation and strength from forearm proximally. She says that this has been going on for the past 2 weeks. No history of injury. Related Data Home Medications Medication Instructions Recorded Confirmed donepezil 5 mg PO HS 04/09/21 05/16/21 Allergies Allergy/AdvReac Type Severity Reaction Status Date / Time banana Allergy Severe SEVERE Verified 05/16/21 20:25 HIVES acetaminophen [From Tylenol] AdvReac Intermediate Nausea and Verified 05/16/21 20:25 Vomiting aspirin AdvReac Intermediate Nausea and Verified 05/16/21 20:25 Vomiting fluoxetine [From Prozac] AdvReac Hallucinati Verified 05/16/21 20:25 ng Review of Systems Constitutional: Constitutional: Denies chills, Denies fever(s) and Denies weakness Eyes: Eyes: Reports no additional eye complaints ENT: Reports system reviewed and no additional complaints, except as documented Cardiovascular: Cardiovascular: Denies chest pain Respiratory: Respiratory: Denies cough and Denies dyspnea Gastrointestinal: Gastrointestinal: Reports no additional gastrointestinal complaints Genitourinary: Genitourinary: Reports no additional female genitourinary complaints Musculoskeletal: Musculoskeletal: Reports no additional musculoskeletal complaints Integumentary/Breasts: Skin/Breast: Reports system reviewed and no additional complaints, except as docu Neurologic: Reports system reviewed and no additional complaints, except as documented, Reports as per HPI, Denies dizziness, Denies headache(s), Reports focal weakness and Reports numbness Psychiatric: Psychiatric: Reports no additional psychiatric complaints Endocrine: Endocrine: Reports no additional endocrine complaints Hematologic/Lymphatic: Hematologic/Lymphatic: Reports no additional hematologic/lymphatic complaints Allergic/Immunologic: Allergic/Immunologic: Reports no additional allergic/immunologic complaints PMFSH Past Medical History Medical History Anemia Depression Diabetic peripheral neuropathy Fibromyalgia Hyperlipidemia Hypertension Hypothyroidism Memory change On Aricept Ovarian cancer At the age of 33, status post hysterectomy. Patient states that half an ovary was left during surgery. She required no further treatment. Pneumonia due to COVID-19 virus (~09/2020) Restless leg syndrome Shingles Type 2 diabetes mellitus Hemoglobin A1c was > 14% 04/09/2021 C-peptide 0.63. Surgical History Surgical History History of hysterectomy History of tonsillectomy History of tubal ligation Family History Family History Grandparent Family history of premature coronary heart disease, Onset Age: 64 Father Family history of respiratory disorder, Onset Age: 87 Family history of cardiovascular disease Patient's father is Family history of Alzheimer's disease Cerebrovascular accident Mother Family history of primary malignant neoplasm of liver, Onset Age: 64 Family history of malignant neoplasm Patient's mother is , Onset Age: 64 Family history of malignant neoplasm of breast in first degree relative Sibling Heart attack Sibling Heart attack Social History Social History Social History: The patient is . She lives in her own home in [place], [place]. She does not work. She has 2 daughters, and designates her daughter Jose Posey, as her surrogate mala
== END 2021-05-20 15:28 | disposition home or self-care (01) ==
PROVIDERS: Emergency Provider Nurse Practitioner Family
DX: R20.2 Paresthesia of skin (principal); M79.642 Pain in left hand; E11.42 Type 2 diabetes mellitus with diabetic polyneuropathy; E78.5 Hyperlipidemia, unspecified; I10 Essential (primary) hypertension; E03.9 Hypothyroidism, unspecified; G25.81 Restless legs syndrome; M79.7 Fibromyalgia; Z85.41 Personal history of malignant neoplasm of cervix uteri; Z86.16 Personal history of COVID-19; Z87.01 Personal history of pneumonia (recurrent); Z79.84 Long term (current) use of oral hypoglycemic drugs; Z79.4 Long term (current) use of insulin
CPT/HCPCS: 99283

== ENCOUNTER 2021-05-30 12:36 | Emergency (ER) | payer MEDICARE, OTHER, SELFPAY ==
--- NOTE | 2021-05-30 12:52 | ED.EXTPRO ---
HPI - Extremity Problem General Chief complaint: Unspecified Stated complaint: left arm shaking out of control Time Seen by Provider: 05/30/21 12:52 Source: patient and RN notes reviewed Mode of arrival: ambulatory Limitations: no limitations History of Present Illness HPI Narrative: Patient has had this problem with her left arm for a month. She was seen here in March and also at [facility] in April. She was recommended to see her primary care physician and possibly a neurologist for further evaluation of the problem with her left arm. She comes in today saying it is getting worse that she is having more fasciculations. The wrist splint I gave her on her previous visit is helping somewhat with her wrist pain. She still is not found a primary care physician. She said nothing has really changed with her left arm other than it seems to get worse and spasms worse. MD Complaint: extremity pain ( With tremor and fasciculations.) Onset (ago): month(s) (1) Pain Consistency: constant Location: left and upper extremity Quality: burning and aching Radiation: none Relieving factors: rest Exacerbating factors: nothing Associated symptoms: denies other symptoms Related Data Home Medications Medication Instructions Recorded Confirmed metformin 1,000 mg PO BIDWM 05/30/21 05/30/21 Allergies Allergy/AdvReac Type Severity Reaction Status Date / Time banana Allergy Severe SEVERE Verified 05/30/21 13:15 HIVES acetaminophen [From Tylenol] AdvReac Intermediate Nausea and Verified 05/30/21 13:15 Vomiting aspirin AdvReac Intermediate Nausea and Verified 05/30/21 13:15 Vomiting fluoxetine [From Prozac] AdvReac Hallucinati Verified 05/30/21 13:15 ng Review of Systems Review of Systems: All systems reviewed & are unremarkable except as noted in HPI and below PMFSH Past Medical History Medical History Anemia Depression Diabetic peripheral neuropathy Fibromyalgia Hyperlipidemia Hypertension Hypothyroidism Memory change On Aricept Ovarian cancer At the age of 33, status post hysterectomy. Patient states that half an ovary was left during surgery. She required no further treatment. Pneumonia due to COVID-19 virus (~09/2020) Restless leg syndrome Shingles Type 2 diabetes mellitus Hemoglobin A1c was > 14% 04/09/2021 C-peptide 0.63. Surgical History Surgical History History of hysterectomy History of tonsillectomy History of tubal ligation Family History Family History Grandparent Family history of premature coronary heart disease, Onset Age: 64 Father Family history of respiratory disorder, Onset Age: 87 Family history of cardiovascular disease Patient's father is Family history of Alzheimer's disease Cerebrovascular accident Mother Family history of primary malignant neoplasm of liver, Onset Age: 64 Family history of malignant neoplasm Patient's mother is , Onset Age: 64 Family history of malignant neoplasm of breast in first degree relative Sibling Heart attack Sibling Heart attack Social History Social History Social History: The patient is . She lives in her own home in [place], [place]. She does not work. She has 2 daughters, and designates her daughter Jose Posey, as her surrogate decision maker. She wishes to be a do not resuscitate. She is a lifelong nonsmoker. She drinks perhaps 4-12 alcoholic beverages a week. No drug use. Smoking status: Never smoker Alcohol intake: current Drinks per week: 4 Substance use: current Substance use type: does not use Sexual Orientation (if Verbalized by the Patient): Straight or Heterosexual Spiritual care concerns: No Exam Const: General: no acute distres
[2021-05-30 13:03] VITALS: BP 131/74; PULSE 82; RESP 20; TEMP 36.3; O2SAT 96
[2021-05-30 13:42] VITALS: BP 98/55; PULSE 70; RESP 20; TEMP 37; O2SAT 98
== END 2021-05-30 13:44 | disposition home or self-care (01) ==
PROVIDERS: Emergency Provider Emergency Medicine
DX: R25.3 Fasciculation (principal)
CPT/HCPCS: 99283

== ENCOUNTER 2021-05-31 00:24 | Emergency (ER) | payer MEDICARE, OTHER, SELFPAY ==
[2021-05-31 00:27] VITALS: BP 157/87; PULSE 90; RESP 18; TEMP 36.8; O2SAT 94
--- NOTE | 2021-05-31 00:28 | ED.EXTPRO ---
HPI - Extremity Problem General Chief complaint: Extremity Problem,Nontraumatic <Ishmael Stinson MD - Last Filed: 06/06/21 09:57> Stated complaint: arm pain <Ishmael Stinson MD - Last Filed: 06/06/21 09:57> Source: patient, EMS and RN notes reviewed <Ishmael Stinson MD - Last Filed: 06/06/21 09:57> Mode of arrival: EMS <Ishmael Stinson MD - Last Filed: 06/06/21 09:57> Limitations: no limitations <Ishmael Stinson MD - Last Filed: 06/06/21 09:57> History of Present Illness HPI Narrative: patient was here within the last 12 hours with the same complaint. She was sent home on Zanaflex 2 mg and she has taken 6 them already since she has been home, and only supposed to be taking 1, 3 times a day. She also has been taking an extra gabapentin. She says the pain is unchanged. <Ishmael Stinson MD - Last Filed: 06/06/21 09:57> MD Complaint: extremity pain <Ishmael Stinson MD - Last Filed: 06/06/21 09:57> Onset (ago): month(s) (1) <Ishmael Stinson MD - Last Filed: 06/06/21 09:57> Pain Consistency: intermittent <Ishmael Stinson MD - Last Filed: 06/06/21 09:57> Location: left and upper extremity <MD Marta Vasquez Last Filed: 06/06/21 09:57> Quality: burning and aching <MD Marta Vasquez Last Filed: 06/06/21 09:57> Radiation: proximal <MD Marta Vasquez Last Filed: 06/06/21 09:57> Relieving factors: nothing <Ishmael Stinson MD - Last Filed: 06/06/21 09:57> Exacerbating factors: nothing <MD Marta Vasquez Last Filed: 06/06/21 09:57> Associated symptoms: denies other symptoms <MD Marta Vasquez Last Filed: 06/06/21 09:57> Related Data Home medications: Home Medications Medication Instructions Recorded Confirmed metformin 1,000 mg PO BIDWM 05/30/21 05/31/21 <Ishmael Stinson MD - Last Filed: 06/06/21 09:57> Allergies/Adverse reactions: Allergies Allergy/AdvReac Type Severity Reaction Status Date / Time banana Allergy Severe SEVERE Verified 05/31/21 10:07 HIVES acetaminophen [From Tylenol] AdvReac Intermediate Nausea and Verified 05/31/21 10:07 Vomiting aspirin AdvReac Intermediate Nausea and Verified 05/31/21 10:07 Vomiting fluoxetine [From Prozac] AdvReac Hallucinati Verified 05/31/21 10:07 ng <Ishmael Stinson MD - Last Filed: 06/06/21 09:57> Review of Systems Review of Systems: All systems reviewed & are unremarkable except as noted in HPI and below <Ishmael Stinson MD - Last Filed: 06/06/21 09:57> PMFSH Past Medical History Medical History: Medical History Anemia Depression Diabetic peripheral neuropathy Fibromyalgia Hyperlipidemia Hypertension Hypothyroidism Memory change On Aricept Ovarian cancer At the age of 33, status post hysterectomy. Patient states that half an ovary was left during surgery. She required no further treatment. Pneumonia due to COVID-19 virus (~09/2020) Restless leg syndrome Shingles Type 2 diabetes mellitus Hemoglobin A1c was > 14% 04/09/2021 C-peptide 0.63. <Ishmael Stinson MD - Last Filed: 06/06/21 09:57> Surgical History Surgical History: Surgical History History of hysterectomy History of tonsillectomy History of tubal ligation <Ishmael Stinson MD - Last Filed: 06/06/21 09:57> Family History Family History: Family History Grandparent Family history of premature coronary heart disease, Onset Age: 64 Father Family history of respiratory disorder, Onset Age: 87 Family history of cardiovascular disease Patient's father is Family history of Alzheimer's disease Cerebrovascular accident Mother Family history of primary malignant neoplasm of liver, Onset Age: 64 Family history of malignant neoplasm Patient's mother is , Onset Ag
[2021-05-31] MEDS: ORPHENADRINE CITRATE 30 MG/ML 2 ML VIAL 60 MG IM (00:41)
[2021-05-31 01:01] LABS: Basophils Absolute Auto 0.04 K/mm3 (0.00-0.10); Basophils Percent Auto 0.8 % (0.0-1.0); Eosinophils Absolute Auto 0.14 K/mm3 (0.02-0.50); Eosinophils Percent Auto 2.7 % (1.0-6.0); Hematocrit 38.2 % (35.0-42.0); Hemoglobin 12.8 g/dL (11.7-13.8); Immature Granulocyte Absolute 0.02 K/mm3 (0.00-0.00); Immature Granulocyte Percent A 0.4 % (0.0-0.0); Lymphocytes Absolute Auto 1.45 K/mm3 (1.10-4.50); Mean Corpuscular HGB Conc 33.5 g/dL (32.0-36.0); Mean Corpuscular Volume 95.5 fL (78.0-102.0); Mean Platelet Volume 9.7 fl (9.2-11.8); Monocytes Absolute Auto 0.43 K/mm3 (0.10-0.90); Monocytes Percent Auto 8.3 % (2.0-11.0); Neutrophils Absolute Auto 3.1 K/mm3 (1.7-7.2); Neutrophils Percent Auto 59.8 % (50.0-70.0); Platelet Count Result 276 K/mm3 (150-420); Red Cell Distribution Width 13.6 % (11.6-14.4); White Blood Count 5.2 K/mm3 (4.8-10.8)
[2021-05-31 01:16] LABS: Alanine Aminotransferase 26 U/L (14-59); Albumin Level 3.4 g/dL (3.4-5.0); Alkaline Phosphatase 116 U/L (46-116); Anion Gap 14 mmol/L (8-16); Aspartate Amino Transferase 26 U/L (15-37); Bilirubin,Total 0.2 mg/dL (0.00-1.00); Blood Urea Nitrogen 34 mg/dL (7-18); Calcium 10.2 mg/dL (8.5-10.1); Carbon Dioxide 24 mmol/L (21-32); Chloride 90 mmol/L (98-108); Estimated Glomerular Filt Rate 41; Magnesium 2.1 mg/dL (1.8-2.4); Potassium 4.2 mmol/L (3.5-5.1); Sodium 128 mmol/L (136-145); Total Protein 6.7 g/dL (6.4-8.2)
[2021-05-31 01:17] LABS: Osmolality Calculated 311 mOsm/kg (285-295)
[2021-05-31 01:19] LABS: Glucose 780 mg/dL (70-99)
[2021-05-31] MEDS: SODIUM CHLORIDE 0.9% IV 1,000 ML 999 ML IV CONT (02:39)
[2021-05-31] MEDS: INSULIN HUMAN REGULAR (*BKC) 100 UNITS/ML IV PUSH (02:40)
[2021-05-31] MEDS: INSULIN REG 100 UNITS/100 ML 100 UNITS/100 ML BAG IV CONT (02:57)
[2021-05-31 03:06] LABS: Glucose Point of Care 333 mg/dl (65-105)
[2021-05-31 03:30] LABS: Glucose Point of Care 342 mg/dl (65-105)
[2021-05-31 04:13] LABS: Glucose Point of Care 309 mg/dl (65-105)
[2021-05-31 04:46] LABS: Glucose Point of Care 360 mg/dl (65-105)
[2021-05-31 05:24] LABS: Glucose Point of Care 177 mg/dl (65-105)
[2021-05-31 06:27] LABS: Anion Gap 7 mmol/L (8-16); Blood Urea Nitrogen 25 mg/dL (7-18); Calcium 9.9 mg/dL (8.5-10.1); Carbon Dioxide 31 mmol/L (21-32); Chloride 104 mmol/L (98-108); Estimated Glomerular Filt Rate > 60; Glucose 130 mg/dL (70-99); Osmolality Calculated 300 mOsm/kg (285-295); Potassium 3.2 mmol/L (3.5-5.1); Sodium 142 mmol/L (136-145)
--- NOTE | 2021-05-31 06:46 | PC.NURSE ---
zakia returned call
[2021-05-31] MEDS: LACTATED RINGERS 1,000 ML 999 ML IV CONT (06:56)
[2021-05-31] MEDS: POTASSIUM BICARBONATE 25 MEQ TABEF PO (07:01)
--- NOTE | 2021-05-31 07:20 | PC.NURSE ---
report given to chin hilliard
[2021-05-31 07:30] VITALS: BP 102/64; PULSE 70; RESP 14; TEMP 36.6; O2SAT 97
[2021-05-31 08:25] VITALS: BP 109/60; PULSE 76; RESP 16; TEMP 36.8; O2SAT 96
[2021-05-31 09:39] LABS: Glucose Point of Care 69 mg/dl (65-105)
== END 2021-05-31 08:30 | disposition short-term general hospital (02) ==
PROVIDERS: Emergency Provider Emergency Medicine
DX: R29.0 Tetany (principal); N28.9 Disorder of kidney and ureter, unspecified; E03.9 Hypothyroidism, unspecified; E11.65 Type 2 diabetes mellitus with hyperglycemia; E78.5 Hyperlipidemia, unspecified; I10 Essential (primary) hypertension
CPT/HCPCS: 36415; 80048; 80053; 82948; 83735; 85025; 96361; 96365; 96366; 96372; 99285; A9270; J1815; J2360; J7030; J7120

== ENCOUNTER 2021-05-31 11:19 | Observation (INO) | payer MEDICARE, OTHER, SELFPAY ==
[2021-05-31] VITALS (8 sets, daily range): BP systolic 84–133; BP diastolic 49–73; PULSE 53–71; RESP 16–21; TEMP 36.4–36.5; O2SAT 93–100; BMI 28.4
--- NOTE | ~2021-05-31 | XR_ITS ---
EXAMINATION: XR hand LT min 3V, XR wrist LT min 3V EXAM DATE: 05/31/2021 11:50 INDICATION: No known recent injury provided at this time. Pain of the left hand and wrist. TECHNIQUE: Left hand frontal, lateral and oblique projections obtained and reviewed. Left wrist fron umberto, frontal with ulnar deviation, oblique and lateral projections obtained and reviewed. There is n o prior study for comparison. FINDINGS: Left metacarpal bones are unremarkable. Mildly wide appearing scapholunate joint space, p ossible partial dissociation. There is mild to moderate triscaphe and 1st carpometacarpal primary ost eoarthritis. There is mild polyarticular interphalangeal primary osteoarthritis. There are no acute f ractures or dislocations identified. There is no subcutaneous gas. The soft tissue is unremarkable. There are no radiopaque foreign bodies. IMPRESSION: 1. Polyarticular left hand, wrist osteoarthritis, 1st triscaphe and CMC joints most affected. 2. Mildly widened scapholunate joint space, possible partial dissociation. Reviewed, dictated and finalized at location A. IMPRESSION: 1. Polyarticular left hand, wrist osteoarthritis, 1st triscaphe and CMC joints most affected. 2. Mildly widened scapholunate joint space, possible partial dissociation.
--- NOTE | ~2021-05-31 | XR_ITS ---
EXAMINATION: XR chest 1V portable EXAM DATE: 05/31/2021 11:50 INDICATION: Transient alteration of awareness. TECHNIQUE: Portable AP frontal chest x-ray was obtained. Comparison is made to prior examination from 04/08/21. FINDINGS: There is pulmonary vascular congestion. Mild cardiomegaly. Patchy left-sided predominant ed melvin or pneumonia suspected, was not present in March. There is no pneumothorax suspected. There ar e no pleural effusions. Mild thoracic scoliosis. IMPRESSION: Suspect patchy left-sided predominant edema or pneumonia. Reviewed, dictated and finalized at location A.
--- NOTE | ~2021-05-31 | CT_ITS ---
EXAMINATION: CT brain wo con DATE: 05/31/2021 12:11 INDICATION: Altered mental status. TECHNIQUE: Computed tomography (CT) of the head was performed without intravenous contrast. The mA wa s adjusted according to patient size. Iterative reconstruction technique was employed. The dose-lengt h product was 605.33 mGy-cm. COMPARISON: Head CT 10/24/2020 FINDINGS: There are scattered areas of low attenuation in the cerebral white matter. There is no intr acranial hemorrhage, acute infarction, or abnormal intracranial mass lesion. The ventricles are ale l in size. There is mild mucosal thickening in the paranasal sinuses. There is a small osteoma in rig ht ethmoid sinus. The mastoid air cells are normal. The orbits are normal. IMPRESSION: 1. Stable mild nonspecific cerebral white matter disease, which likely represents chronic small vesse l ischemic disease. Reviewed, dictated and finalized at location A. IMPRESSION: 1. Stable mild nonspecific cerebral white matter disease, which likely represen ts chronic small vessel ischemic disease.
--- NOTE | ~2021-05-31 | XR_ITS ---
EXAMINATION: XR chest 2V DATE: 06/01/2021 13:02 INDICATION: Pneumonia. TECHNIQUE: Frontal and lateral views of the chest were obtained. COMPARISON: Chest single view 05/31/2021 FINDINGS: A calcified right lung nodule and calcified mediastinal lymph nodes are consistent with old granulomatous disease. There is mild atelectasis at left lung base. No pleural effusion or pneumotho rax. The heart size is normal. IMPRESSION: 1. Mild atelectasis at left lung base. Reviewed, dictated and finalized at location A.
[2021-05-31 10:43] LABS: Glucose Point of Care 111 mg/dl (65-105)
--- NOTE | 2021-05-31 10:43 | PM.IMHP ---
H&P: HPI History of Present Illness Date/Time: 05/31/21 10:43 Chief Complaint: Arm pain Narrative: 71yo female with hx of DM, HTN and confusion here for arm pain and spasm. Patient arouses but unable to provide hx. She was seen in the ED on 05/16 for left hand numbness. She had been out gardening prior to the onset of her symptoms. It was felt she had carpal tunnel treated with a wrist brace and discharged home. She returned on 05/20 for numbness and tingling to the left hand. No history of injury. She was treated with Naprosyn and discharged home. Patient returned again to the ED on 05/30/2021 for persistent left arm and hand pain. She has not followed up with any physician since the onset of her symptoms. The wrist splint seem to have helped. She is now having arm spasms. Patient was having spontaneous fasciculations and contractions the left fingers and hands. Zanaflex was given. Patient was discharged home around mid day. No lab work or x-ray imaging performed during any of these ED visits. Patient returns after midnight on the day of admission with persistent left arm and hand pain. Over 12 hours since she was discharged, she had taken 6 Zanaflex 2 mg tablets. She has been taking extra gabapentin as well. On presentation, patient was hemodynamically stable. She was given Norflex 60 mg IM once. Sodium was 128 but this was related to her glucose of 780. BUN and creatinine were elevated at 34 and 1.3 respectively. Anion gap was 14. Calcium was 10.2. LFTs normal. She was started on insulin drip. Glucose became better controlled. She also received potassium bicarb and IV fluids. She was transferred to our facility for further care. Patient is somnolent but arouses. She and speak a few words but overall unable to provide a coherent history. Glucose was low on admission at 69 and she received apple juice. Glucose currently is 111. Blood pressure has dropped to 90/60. Bolus ordered. Review of Systems Review of Systems: ROS unobtainable: Yes unobtainable due to mental status PMFSH Past Medical History Medical History Anemia Depression Diabetic peripheral neuropathy Fibromyalgia Hyperlipidemia Hypertension Hypothyroidism Memory change On Aricept Ovarian cancer At the age of 33, status post hysterectomy. Patient states that half an ovary was left during surgery. She required no further treatment. Pneumonia due to COVID-19 virus (~09/2020) Restless leg syndrome Shingles Type 2 diabetes mellitus Hemoglobin A1c was > 14% 04/09/2021 C-peptide 0.63. Surgical History Surgical History History of hysterectomy History of tonsillectomy History of tubal ligation Family History Family History Grandparent Family history of premature coronary heart disease, Onset Age: 64 Father Family history of respiratory disorder, Onset Age: 87 Family history of cardiovascular disease Patient's father is Family history of Alzheimer's disease Cerebrovascular accident Mother Family history of primary malignant neoplasm of liver, Onset Age: 64 Family history of malignant neoplasm Patient's mother is , Onset Age: 64 Family history of malignant neoplasm of breast in first degree relative Sibling Heart attack Sibling Heart attack Social History Social History Social History: The patient is . She lives in her own home in [place], [place]. She does not work. She has 2 daughters, and designates her daughter Jose Posey, as her surrogate decision maker. She wishes to be a do not resuscitate. She is a lifelong nonsmoker. She drinks perhaps 4-12 alcoholic beverages a week. No drug use. Smoking status: Never smoker Alcohol intake: current Drinks per week
[2021-05-31] MEDS: SODIUM CHLORIDE 0.9% IV 1,000 ML 70 ML IV CONT (10:48)
[2021-05-31] MEDS: SODIUM CHLORIDE 0.9% IV 500 ML 999 ML IV CONT ×2 (11:12→13:04)
--- NOTE | 2021-05-31 11:19 | ECG_ITS ---
Measurements Intervals [place] Rate: 59 P: 49 CT: 170 QRS: 23 QRSD: 92 T: 130 QT: 433 QTc: 432 Interpretive Statements SINUS BRADYCARDIA WITH OCCASIONAL SUPRAVENTRICULAR PREMATURE COMPLEXES ST DEVIATION AND T-WAVE ABNORMALITY, CONSIDER ISCHEMIA Electronically Signed On 05-31-2021 15:52:45 CDT by Abdullahi Bruce M.D.
[2021-05-31 12:00] LABS: Glucose Point of Care 95 mg/dl (65-105)
[2021-05-31 12:14] LABS: Lactic Acid Reflex 0.9 mmol/L (0.7-2.1)
[2021-05-31 12:15] LABS: Alanine Aminotransferase 17 U/L (4-35); Alkaline Phosphatase 83 U/L (38-126); Anion Gap 1 mmol/L (8-16); Aspartate Amino Transferase 32 U/L (14-36); Bilirubin,Total 0.3 mg/dL (0.2-1.3); Blood Urea Nitrogen 19 mg/dL (7-17); Calcium 9.1 mg/dL (8.4-10.2); Carbon Dioxide 31 mmol/L (22-30); Chloride 105 mmol/L (98-107); Estimated Glomerular Filt Rate > 60; Glucose 87 mg/dL (65-110); Phosphorus 3.6 mg/dL (2.5-4.5); Potassium 3.4 mmol/L (3.4-5.0); Sodium 137 mmol/L (137-145)
[2021-05-31 12:17] LABS: Partial Thromboplastin Time 22.3 SECONDS (22.3-36.8); Prothrombin Time 12.5 Seconds (11.1-14.7)
[2021-05-31 14:19] LABS: Add Urine Microscopic? YES; Appearance Urine Clear (Clear); Bacteria Urine Trace /hpf; Bilirubin Urine Negative (Negative); Blood Urine Negative (Negative); Color Urine Yellow (Yellow); Glucose Urine UA Negative (Negative); Ketones Urine Negative (Negative); Leukocyte Esterase Ur 1+ LEU/UL (Negative); Nitrate Urine Negative (Negative); Protein Urine Negative (Negative); RBC Urine 0-2 /hpf (0-2); Specific Grav Ur 1.013 (1.001-1.035); Squamous Epithelial Cell Urine Rare /hpf (Few); Urobilinogen Urine Negative mg/dL (<2.0)
[2021-05-31 16:30] LABS: Glucose Point of Care 131 mg/dl (65-105)
[2021-05-31 18:37] LABS: Amphetamine Screen Urine Negative (Negative); Barbiturate Screen Urine Negative (Negative); Benzodiazepines Screen Urine Negative (Negative); Cannabinoid Screen Urine Negative (Negative); Cocaine Screen Urine Negative (Negative); Methadone Screen Urine Negative (Negative); Opiate Screen Urine Negative (Negative); Phencyclidine Screen Urine Negative (Negative)
[2021-05-31 23:31] LABS: Glucose Point of Care 85 mg/dl (65-105)
[2021-06-01 06:00] VITALS: BP 109/67; PULSE 56; RESP 20; TEMP 36.5; O2SAT 99
[2021-06-01 06:00] LABS: Basophils Percent Auto 0.5 % (0.2-1.2); Eosinophils Absolute Auto 0.1 K/mm3 (0-0.3); Hematocrit 38.9 % (37.0-47.0); Hemoglobin 12.7 g/dL (12.0-15.0); Immature Granulocyte Absolute 0.01 K/mm3 (0.00-0.031); Immature Granulocyte Percent A 0.2 % (0-0.5); Lymphocytes Absolute Auto 1.89 K/mm3 (0.9-3.2); Lymphocytes Percent Auto 31.1 % (18.3-44.2); Mean Corpuscular HGB Conc 32.6 g/dl (32-36); Mean Corpuscular Hemoglobin 31.8 pg (26-34); Mean Corpuscular Volume 97.3 fl (80-100); Mean Platelet Volume 9.5 fl (7.4-10.4); Monocytes Absolute Auto 0.5 K/mm3 (0.1-0.6); Monocytes Percent Auto 7.7 % (2.6-8.5); Neutrophils Absolute Auto 3.6 K/mm3 (1.3-6.7); Neutrophils Percent Auto 58.5 % (45.5-73.1); Platelet Count Result 224 k/mm3 (150-375); Red Cell Distribution Width 14.2 % (11.5-14.5); White Blood Count 6.1 K/mm3 (4.5-10.0)
[2021-06-01 06:18] LABS: Alanine Aminotransferase 19 U/L (4-35); Albumin Level 3.1 g/dL (3.5-5.1); Alkaline Phosphatase 90 U/L (38-126); Anion Gap 4 mmol/L (8-16); Aspartate Amino Transferase 37 U/L (14-36); Bilirubin,Total 0.4 mg/dL (0.2-1.3); Blood Urea Nitrogen 11 mg/dL (7-17); CRP < 0.5 mg/dL (<1.0); Calcium 8.8 mg/dL (8.4-10.2); Carbon Dioxide 26 mmol/L (22-30); Chloride 107 mmol/L (98-107); Estimated CRCL calculation 90 ml/min; Estimated Glomerular Filt Rate > 60; Glucose 132 mg/dL (65-110); Potassium 3.9 mmol/L (3.4-5.0); Sodium 137 mmol/L (137-145)
[2021-06-01 06:22] LABS: Glucose Point of Care 142 mg/dl (65-105)
[2021-06-01 07:50] VITALS: BP 129/67; PULSE 68; RESP 18; TEMP 36.4; O2SAT 99
[2021-06-01] MEDS: ENOXAPARIN 40 MG/0.4 ML SYRINGE SUB-Q (08:09)
--- NOTE | 2021-06-01 08:40 | PCSTNOTE ---
Please refer to the Bedside Swallow Evaluation in the EMR. Please note, silent aspiration cannot be ruled out at bedside.
[2021-06-01 11:47] LABS: Glucose Point of Care 326 mg/dl (65-105)
[2021-06-01] MEDS: INSULIN ASPART (*BKC) 100 UNITS/ML SUB-Q ×2 (12:03→16:52)
[2021-06-01] MEDS: INSULIN GLARGINE (*BKC) 100 UNITS/ML 25 UNITS SUB-Q (13:12)
[2021-06-01] MEDS: GABAPENTIN 300 MG CAPSULE PO ×2 (13:12→16:11)
--- NOTE | 2021-06-01 13:50 | PCDIET ---
Pt consult for diabetes, has been educated multiple times in the past. RD educated pt on diabetic recommendations for improved glucose control. Pt's typical dietary intake, timing, and ways she could change her current habits to better support her diabetes managment were all discussed.
[2021-06-01 14:20] VITALS: BP 128/64; PULSE 78; RESP 18; TEMP 36.7; O2SAT 95
--- NOTE | 2021-06-01 15:30 | PM.DS ---
DS: Admitting Diagnosis Discharge Date 06/01/21 Admitting Diagnosis Arm pain and spasm. DS: Discharge Diagnosis Discharge Diagnosis (1) Altered mental status: Code(s): R41.82 - Altered mental status, unspecified Status: Acute (2) Acute renal insufficiency: Code(s): N28.9 - Disorder of kidney and ureter, unspecified Status: Inactive (3) Hyperglycemia due to type 2 diabetes mellitus: Qualifiers: Diabetes mellitus senior care insulin use: with senior care use Qualified Code(s): E11.65 - Type 2 diabetes mellitus with hyperglycemia; Z79.4 - supervisor intermediates (current) use of insulin Code(s): E11.65 - Type 2 diabetes mellitus with hyperglycemia Status: Inactive (4) [place] spasm: Code(s): R29.0 - [place] Status: Inactive (5) Diabetes mellitus: Code(s): E11.9 - Type 2 diabetes mellitus without complications Status: Acute DS: Summary Hospital Course Reason for hospitalization: 71yo female with hx of DM, HTN and confusion here for arm pain and spasm. Please see H&P for details Hospital Course: Patient was in the ED the previous day and returned after midnight on the day of admission with persistent left arm and hand pain. Over 12 hours since she was discharged from the ED, she had taken 6 Zanaflex 2 mg tablets. She has been taking extra gabapentin as well. On presentation, patient was hemodynamically stable. She was given Norflex 60 mg IM once. Sodium was 128 but this was related to her glucose of 780. BUN and creatinine were elevated at 34 and 1.3 respectively. Anion gap was 14. Calcium was 10.2. LFTs were normal. She was started on insulin drip. Glucose became better controlled. She also received potassium bicarb and IV fluids. She was transferred to our facility for further care. On arrival, patient was somnolent but arouses to voice and sternal rub. She was unable to provide a coherent history. Glucose was low on admission at 69 and was treated. Blood pressure dropped to 90/60 and she received fluid bolus with benefit. EKG showing sinus bradycardia with PAC and ST changes but appeared similar to prior EKGs. CXR showing patchy left-sided predominant edema or pneumonia. BCx collected and are NGTD. Abx started. CBC, PT/PTT were normal. CMP normal except bicarb 31 and BUN 19 that improved with IV fluids. LFTs normal. UA showing 1+ LE and 10-15WBC and UCx pending. UDS was negative. She was started on IV abx. CXR repeated but only showing atelectasis. PNA ruled out. Brain CT showing stable mild nonspecific cerebral white matter disease but no acute process. Her mental status improved and BP normalized. It was felt that her mental status changes were from the unintentional Zanaflex overdose. We did have left wrist and hand xray which showed no fracture. Some dissociation of the scapholunate but no pain to palpation in the hand or wrist. Her symptoms were more spastic and hemiballistic (left arm actually hit her in the face). Neurologist did see the patient but had no further recommendations. She was educated about the benfits of closer monitoring of her glucose. Patient's symptoms resolved and she feels much better. She is requesting discharge. Patient did well and was able to be discharged home on 06/01/21. Status at Discharge Cognitive/behavioral status at discharge: Stable Time Spent with Patient Time attestation: Total time spent providing and/or coordinating discharge services:35 minutes Time spent: Greater than 30 minutes Exam Narrative: AF 98.0 128/64 78 18 95% ra Gen - NARD Chest - CTA bilaterally, nml RR CV - RRR S1/S2 Abd - soft, NT/ND, +BS Ext - no pedal edema Neuro - nonfocal Psych - normal mood Skin - warm and dry. DS: Data Data Completed and Pending Labs on day of discharge: Labs from last 24 hours 06/01/21 06/01/21 06/01/21 11:43 06:09 05:45 WBC RBC Hgb Hct MCV MCH MCHC RDW Plt Count MPV
[2021-06-01] MEDS: metFORMIN HCL 500 MG TABLET 1000 MG PO (16:11)
[2021-06-01 16:40] LABS: Glucose Point of Care 455 mg/dl (65-105)
--- NOTE | 2021-06-01 16:48 | WPDNEURCNPN ---
Assessment and Plan Additional Plan 1. Diabetes mellitus with diabetic neuropathy and neuralgia but negative CT scan of the head also mild nonspecific white matter disease 2 treatment for the diabetes mellitus with neuropathy and also prevention of the overmedication Consult date: 06/01/21 HPI: Karly Leslie is a 71 year old female admitted to the hospital through the emergency room for the complaints of pain had been in the ER 12 hours before when she was sent on Zanaflex 2 mg and has already taken 6 in addition to extra gabapentin, he had been on metformin 1000 mg twice a day, with allergies to aspirin fluoxetine and Tylenol in addition to the history of anemia depression diabetic peripheral neuropathy, fibromyalgia, hypertension memory changes and, history of ovarian cancer at young age, restless leg syndrome, and history of hemoglobin A1c being more than 14 on April 09, 2021, history of smoking but current alcohol intake of 4 per week Review of Systems Review of Systems: All systems reviewed & are unremarkable except as noted in HPI and below PMFSH Past Medical History Medical History Anemia Depression Diabetic peripheral neuropathy Fibromyalgia Hyperlipidemia Hypertension Hypothyroidism Memory change On Aricept Ovarian cancer At the age of 33, status post hysterectomy. Patient states that half an ovary was left during surgery. She required no further treatment. Pneumonia due to COVID-19 virus (~09/2020) Restless leg syndrome Shingles Type 2 diabetes mellitus Hemoglobin A1c was > 14% 04/09/2021 C-peptide 0.63. Surgical History Surgical History History of hysterectomy History of tonsillectomy History of tubal ligation Family History Family History Grandparent Family history of premature coronary heart disease, Onset Age: 64 Father Family history of respiratory disorder, Onset Age: 87 Family history of cardiovascular disease Patient's father is Family history of Alzheimer's disease Cerebrovascular accident Mother Family history of primary malignant neoplasm of liver, Onset Age: 64 Family history of malignant neoplasm Patient's mother is , Onset Age: 64 Family history of malignant neoplasm of breast in first degree relative Sibling Heart attack Sibling Heart attack Social History Social History Social History: The patient is . She lives in her own home in [place], [place]. She does not work. She has 2 daughters, and designates her daughter Jose Posey, as her surrogate decision maker. She wishes to be a do not resuscitate. She is a lifelong nonsmoker. She drinks perhaps 4-12 alcoholic beverages a week. No drug use. Smoking status: Never smoker Alcohol intake: current Drinks per week: 4 Substance use: never Substance use type: does not use Other substance usage details: denies Sexual Orientation (if Verbalized by the Patient): Straight or Heterosexual Spiritual care concerns: No Meds Home Medications and Allergies Home Medications Medication Instructions Recorded Confirmed Type albuterol sulfate 90 mcg/actuation 2 puff INHALATION Q4H PRN #8.5 g 11/19/20 05/31/21 Rx aerosol inhaler gabapentin 300 mg capsule 300 mg PO TID #90 cap 03/23/21 05/31/21 Rx pramipexole 1.5 mg tablet 3 mg PO HS #180 tablet 03/23/21 05/31/21 Rx Lantus U-100 Insulin 10 unit SUBCUT HS #10 ml 04/12/21 05/31/21 Rx Lantus U-100 Insulin 35 unit SUBCUT DAILY #10 ml 04/12/21 05/31/21 Rx insulin aspart U-100 [Novolog 4 - 8 units SUBCUT TIDWM 30 Days 04/12/21 05/31/21 Rx U-100 Insulin aspart] #15 ml polyethylene glycol 3350 [Miralax] 17 g PO DAILY PRN 30 Days #30 ea 04/12/21 05/31/21 Rx naproxen [Naprosyn] 500 mg PO BID PRN #20 tablet 05/20/21 05/31/21 Rx met
[2021-06-01 18:03] LABS: Glucose Point of Care > 500 mg/dl (65-105)
[2021-06-01] MEDS: INSULIN ASPART (*BKC) 100 UNITS/ML 8 UNITS SUB-Q (18:11)
[2021-06-01 19:05] LABS: Glucose Point of Care 399 mg/dl (65-105)
--- NOTE | 2021-06-02 07:59 | PC.NURSE ---
Urine cx is negative. Dr. Isa peralta.
--- NOTE | 2021-06-08 07:38 | PC.NURSE ---
Blood cx are negative. Dr. Isa peralta.
== END 2021-06-01 20:35 | disposition home or self-care (01) ==
PROVIDERS: Psychiatry & Neurology Neurology; Admitting Provider Internal Medicine; PCP Family Medicine; Visit Provider Internal Medicine
DX: R29.0 Tetany (principal); R25.2 Cramp and spasm; M79.602 Pain in left arm; N17.9 Acute kidney failure, unspecified; M54.2 Cervicalgia; R41.82 Altered mental status, unspecified; I10 Essential (primary) hypertension; E11.65 Type 2 diabetes mellitus with hyperglycemia; E11.42 Type 2 diabetes mellitus with diabetic polyneuropathy; E78.5 Hyperlipidemia, unspecified; E03.9 Hypothyroidism, unspecified; Z85.43 Personal history of malignant neoplasm of ovary; Z90.710 Acquired absence of both cervix and uterus; Z86.16 Personal history of COVID-19; Z79.84 Long term (current) use of oral hypoglycemic drugs; Z79.4 Long term (current) use of insulin
CPT/HCPCS: 36415; 70450; 71045; 71046; 73110; 73130; 80053; 80307; 81001; 82948; 83605; 83735; 84100; 85025; 85610; 85730; 86140; 87040; 87086; 92610; 93005; 96361; 96365; 96366; 96367; 96372; 97161; 97165; A9270; G0378; G0379; J0456; J0696; J1650; J1815; J7030; J7040

== ENCOUNTER 2021-06-13 17:25 | Inpatient (IN) | payer MEDICARE, OTHER, SELFPAY ==
[2021-06-13] VITALS (15 sets, daily range): BP systolic 119–158; BP diastolic 54–95; PULSE 63–126; RESP 19–27; TEMP 34.7–35.2; O2SAT 96–100; BMI 25.9
--- NOTE | ~2021-06-13 | XR_ITS ---
EXAMINATION: XR chest 1V portable Exam Date/Time: 06/13/2021 19:00 CDT CLINICAL HISTORY: elevated wbc, altered Comparison: 06/01/2021. RESULT: Lines, tubes, and devices: None. Lungs and pleura: Clear. Cardiomediastinal silhouette: Stable cardiomediastinal silhouette. Other: No acute osseous or upper abdominal finding. IMPRESSION: No acute cardiopulmonary process Reviewed, dictated and finalized at location K.
--- NOTE | ~2021-06-13 | CT_ITS ---
EXAMINATION: CT abdomen pelvis wo con DATE: 06/13/2021 20:34 INDICATION: ams, leuckocytosis TECHNIQUE: Computed tomography (CT) of the abdomen and pelvis was performed without intravenous contr ast. Automated exposure control and iterative reconstruction technique were employed. The dose-length product was 578.22 mGy-cm. COMPARISON: 10/27/2020 FINDINGS: Exam limited by motion artifact. Lower thorax: Liver: Normal. Biliary/Gallbladder: Gallbladder is normal. No bile duct dilation. Spleen: Normal. Pancreas: No mass or duct dilation. Adrenals:No mass. Kidneys: No mass, stone, or hydronephrosis. GI tract: The stomach is distended by air and fluid. Patulous distal esophagus, filled with fluid. No small or large bowel dilation. Normal appendix. The rectum is dilated up to 5 cm in diameter by form ed stool. Mesentery/Peritoneum: No ascites, mass, or free air. Retroperitoneum: No mass. Pelvis: Uterus not visualized. The bladder is decompressed by a Grace catheter. Bones/Soft Tissues: Soft tissues and body wall unremarkable. No acute osseous finding. Additional Findings: None. IMPRESSION: Motion limited examination. Mild fecal impaction. Gastric distention. Reviewed, dictated and finalized at location K.
--- NOTE | ~2021-06-13 | CT_ITS ---
EXAMINATION: CT brain wo con DATE: 06/13/2021 19:42 INDICATION: ams TECHNIQUE: Computed tomography (CT) of the head was performed without intravenous contrast. The mA wa s adjusted according to patient size. Iterative reconstruction technique was employed. The dose-lengt h product was 605.33 mGy-cm. COMPARISON: 05/31/2021 FINDINGS: No acute intracranial hemorrhage or extra-axial fluid collection. No hydrocephalus, mass, or herniation. No acute ischemic infarct. Unremarkable dural venous sinus attenuation. No acute osseous abnormality. The aerated spaces are clear. Mild chronic white matter change. IMPRESSION: No acute intracranial process. Reviewed, dictated and finalized at location K.
--- NOTE | 2021-06-13 17:28 | ECG_ITS ---
Measurements Intervals [place] Rate: 121 P: 90 AR: 176 QRS: 36 QRSD: 101 T: 37 QT: 422 QTc: 601 Interpretive Statements SINUS TACHYCARDIA NONSPECIFIC ST & T-WAVE ABNORMALITY WANDERING BASELINE ARTIFACT BORDERLINE ECG COMPARED TO ECG 05/31/2021 12:25:07 SINUS TACHYCARDIA NOW PRESENT Electronically Signed On 06-14-2021 11:07:28 CDT by Alberto Louise M.D.
[2021-06-13] MEDS: SODIUM CHLORIDE 0.9% IV 2,000 ML 999 ML IV CONT (17:37)
--- NOTE | 2021-06-13 17:41 | ED.RECABL ---
HPI - Recheck/Abnormal Lab/Rx General Chief Complaint: Recheck/Abnormal Lab/Rx Stated Complaint: diabetic problems Time Seen by Provider: 06/13/21 17:28 Source: EMS, RN notes reviewed and old records reviewed History of Present Illness HPI narrative: Patient presents with concerns for DKA. Patient is at elevated blood sugars for the past couple days as well as nausea and vomiting. Her friend has been assisting with caring for her she appeared to be getting worse and ambulance was called to bring to the ER for further evaluation. Prior to EMS transportation patient's blood sugar was noted to be 600 at home and friend gave a dose of insulin. EMS noted rapid respirations as well as tachycardia and transported to the ER for further evaluation Related Data Home Medications Medication Instructions Recorded Confirmed insulin glargine 100 unit/mL 35 unit SUBCUT QPM ml 06/07/21 subcutaneous solution tizanidine 2 mg capsule 2 mg PO TID PRN 06/07/21 Allergies Allergy/AdvReac Type Severity Reaction Status Date / Time banana Allergy Severe SEVERE Verified 06/07/21 08:49 HIVES acetaminophen [From Tylenol] AdvReac Intermediate Nausea and Verified 06/07/21 08:49 Vomiting aspirin AdvReac Intermediate Nausea and Verified 06/07/21 08:49 Vomiting fluoxetine [From Prozac] AdvReac Hallucinati Verified 06/07/21 08:49 ng Review of Systems Review of Systems: ROS unobtainable: Yes unobtainable due to medical condition (Patient does not answer all questions appropriately) PMFSH Past Medical History Medical History (Updated 06/13/21 @ 20:32 by Carmen Najera DO) Back pain Chronic anemia Depression Diabetic peripheral neuropathy Fibromyalgia Frequent falls Hyperlipidemia Hypertension Hypothyroidism Memory change On Aricept Ovarian cancer At the age of 33, status post hysterectomy. Patient states that half an ovary was left during surgery. She required no further treatment. Pneumonia due to COVID-19 virus (~09/2020) Proteinuria due to type 2 diabetes mellitus Restless leg syndrome Shingles Type 2 diabetes mellitus Hemoglobin A1c was > 14% 04/09/2021 C-peptide 0.63. Surgical History Surgical History (Updated 06/13/21 @ 20:27 by Carmen Najera DO) History of tonsillectomy History of total hysterectomy with bilateral salpingo-oophorectomy (BSO) History of tubal ligation Family History Family History Grandparent Family history of premature coronary heart disease, Onset Age: 64 Father Family history of respiratory disorder, Onset Age: 87 Family history of cardiovascular disease Patient's father is Family history of Alzheimer's disease Cerebrovascular accident Mother Family history of primary malignant neoplasm of liver, Onset Age: 64 Family history of malignant neoplasm Patient's mother is , Onset Age: 64 Family history of malignant neoplasm of breast in first degree relative Sibling Heart attack Sibling Heart attack Social History Social History Social History: The patient is . She lives in her own home in [place], [place]. She does not work. She has 2 daughters, and designates her daughter Jose Posey, as her surrogate decision maker. She wishes to be a do not resuscitate. She is a lifelong nonsmoker. She drinks perhaps 4-12 alcoholic beverages a week. No drug use. Smoking status: Never smoker Alcohol intake: current Drinks per week: 4 Substance use: never Substance use type: does not use Other substance usage details: denies Sexual Orientation (if Verbalized by the Patient): Straight or Heterosexual Spiritual care concerns: No Exam Narrative: GENERAL: Well-appearing, well-nourished, and in no acute distress. HEAD: Normocephalic, atraumatic. EYES: PERRLA and EOMI. ENT: Nares clear, no rhinorrh
[2021-06-13 17:49] LABS: Hematocrit 51.7 % (37.0-47.0); Hemoglobin 14.5 g/dL (12.0-15.0); Mean Corpuscular Hemoglobin 31.9 pg (26-34); Mean Corpuscular Volume 113.6 fl (80-100); Mean Platelet Volume 9.8 fl (7.4-10.4); Platelet Count Result 441 k/mm3 (150-375); Red Blood Count 4.55 M/mm3 (4.2-5.4); Red Cell Distribution Width 14.1 % (11.5-14.5); White Blood Count 18.8 K/mm3 (4.5-10.0)
[2021-06-13 17:55] LABS: Alveolar/Arterial O2 Gradient 8.9 mmHg; Base Excess ABG -28.1 mEq/l (+/-2.0); Fractional Inspired Oxygen 21 %; HCO3 ABG 2.8 mEq/l (22.0-26.0); Oxygen Content ABG 19.9 %vol (16.0-22.0); Oxyhemoglobin 96.1 % THb (90.0-100.0); PO2 ABG 124.7 mmHg (80.0-100.0); PO2 FiO2 Ratio Arterial Blood 5.94 %; Total Hemoglobin 14.6 g/dL (12.0-18.0)
[2021-06-13 17:58] LABS: Device ROOM AIR; PCO2 ABG 13.5 mmHg (35.0-45.0); Site Drawn LEFT BRACHIAL; pH ABG 6.935 (7.350-7.450)
[2021-06-13] MEDS: SODIUM BICARBONATE 8.4% 50 MEQ/50 ML SYRINGE IV PUSH (18:16)
[2021-06-13 18:21] LABS: Band Neutrophils Percent 8 % (0-6); Lymphocytes Absolute Manual 1.88 K/mm3 (1.1-4.5); Monocytes Absolute Manual 1.12 K/mm3 (0.1-0.90); Monocytes Percent Manual 6 % (3-9); Neutrophils Absolute Manual 15.79 K/mm3 (1.7-7.2); Neutrophils Percent Manual 76 % (46-73); Total Cells Counted 100
[2021-06-13 18:22] LABS: Hypochromasia 1+ (NORMAL); Platelet Estimate Increased (Adequate)
[2021-06-13 18:24] LABS: Alanine Aminotransferase 22 U/L (4-35); Albumin Level 5.1 g/dL (3.5-5.1); Alkaline Phosphatase 155 U/L (38-126); Aspartate Amino Transferase 35 U/L (14-36); Bilirubin,Total 0.5 mg/dL (0.2-1.3); Blood Urea Nitrogen 29 mg/dL (7-17); Calcium 11.2 mg/dL (8.4-10.2); Carbon Dioxide < 5 mmol/L (22-30); Chloride 93 mmol/L (98-107); Estimated Glomerular Filt Rate 30; Glucose 912 mg/dL (65-110); Potassium 4.9 mmol/L (3.4-5.0); Sodium 136 mmol/L (137-145)
[2021-06-13] MEDS: INSULIN HUMAN REGULAR (*BKC) 100 UNITS in SODIUM CHLORIDE 0.9% IV 99 ML 17 UNITS IV CONT (18:29)
[2021-06-13 18:33] LABS: Appearance Urine Clear (Clear); Bilirubin Urine 2+ (Negative); Color Urine Yellow (Yellow); Glucose Urine UA 3+ mg/dL (Negative); Ketones Urine 4+ mg/dL (Negative); Leukocyte Esterase Ur Negative LEU/UL (Negative); Nitrate Urine Negative (Negative); Protein Urine 2+ mg/dL (Negative); Specific Grav Ur 1.025 (1.001-1.035); Urobilinogen Urine 0.2 mg/dL (<2.0)
[2021-06-13 18:37] LABS: Bacteria Urine Trace /hpf; Mucus Urine Rare /lpf; RBC Urine 0-2 /hpf (0-2); Squamous Epithelial Cell Urine Rare /hpf (Few); WBC Urine 0-3 /hpf
[2021-06-13 18:42] LABS: Add Urine Microscopic? YES; Blood Urine Trace-Intact (Negative)
[2021-06-13] MEDS: SODIUM CHLORIDE 0.9% IV 1,000 ML 999 ML IV CONT ×2 (19:02→21:58)
--- NOTE | 2021-06-13 19:10 | PC.NURSE ---
Patient report given to SAMMY Grajeda. All questions answered and care of patient transferred.
--- NOTE | 2021-06-13 19:40 | PC.NURSE ---
Pt to CT at this time
[2021-06-13 19:41] LABS: Glucose Point of Care > 500 mg/dl (65-105)
[2021-06-13 19:41] LABS: Glucose Point of Care > 500 mg/dl (65-105)
--- NOTE | 2021-06-13 19:43 | PC.NURSE ---
Pt back from CT scan with this RN. Pt tolerated scan well. Pt currently back in ED Room 1 with primary RN and lead nuclear medicine technologist.
--- NOTE | 2021-06-13 19:50 | PC.NURSE ---
Finger stick blood sugar is too high for the glucometer to read at this time. I called ROUTE DRIVER SALESPERSON Kishor for advice and he states that a CMP needs to be drawn on the pt to get accurate blood sugar to calculate titration. CMP has been ordered and will be drawn. Will continue to monitor pt blood sugar and mental status.
--- NOTE | 2021-06-13 20:14 | PM.IMHP ---
H&P: HPI History of Present Illness Date/Time: 06/13/21 20:14 Chief Complaint: High blood sugars, nausea vomiting Narrative: 71-year-old female with past medical history of medical noncompliance, hypertension, and uncontrolled diabetes mellitus will multiple admissions for DKA who presented to the ER via EMS due to high glucoses in nausea and vomiting. Patient's glucoses at home were greater than 600 and a friend gave the patient a dose of insulin prior to calling EMS. Patient has had 5 hospitalizations at this facility for DKA since April of 2019 and is been hospitalized at other facilities as well for DKA. The patient's last hemoglobin A1c March 2021 was greater than 14. At the time of my evaluation the patient is only alert and oriented to self. She thinks that she is at home. She cannot give me any specific complaints. Patient is tachypneic. The patient repetitively told me that she needed to urinate but she already has a Grace catheter in place that has drained approximate 500 mL of clear yellow urine. A when asked the patient what month it is she told me that her grandmother in her 70s. The patient thought the year was 2007 when nursing staff questioned her she actually would not answer me regarding the current month or year. She was moaning and rolling around in bed. She had been having nausea and vomiting and subsequently had a CT of the abdomen pelvis which demonstrated fecal impaction and gastric distension. Her abdominal exam was benign. Review of Systems Review of Systems: Review of systems was attempted but was limited due to patient's confusion. The patient is a poor historian at baseline. [facility] Past Medical History Medical History (Updated 06/13/21 @ 21:30 by Carmen Najera DO) Back pain Chronic anemia Depression Diabetic peripheral neuropathy Fibromyalgia Frequent falls Hyperlipidemia Hypertension Hypothyroidism Memory change On Aricept Ovarian cancer At the age of 33, status post hysterectomy. Patient states that half an ovary was left during surgery. She required no further treatment. Pneumonia due to COVID-19 virus (~09/2020) Proteinuria due to type 2 diabetes mellitus Restless leg syndrome Shingles Type 2 diabetes mellitus Hemoglobin A1c was > 14% 04/09/2021 C-peptide 0.63. Surgical History Surgical History (Updated 06/13/21 @ 20:27 by Carmen Najera DO) History of tonsillectomy History of total hysterectomy with bilateral salpingo-oophorectomy (BSO) History of tubal ligation Family History Family History Grandparent Family history of premature coronary heart disease, Onset Age: 64 Father Family history of respiratory disorder, Onset Age: 87 Family history of cardiovascular disease Patient's father is Family history of Alzheimer's disease Cerebrovascular accident Mother Family history of primary malignant neoplasm of liver, Onset Age: 64 Family history of malignant neoplasm Patient's mother is , Onset Age: 64 Family history of malignant neoplasm of breast in first degree relative Sibling Heart attack Sibling Heart attack Social History Social History Social History: The patient is . She lives in her own home in [place], [place]. She does not work. She has 2 daughters, and designates her daughter Jose Posey, as her surrogate decision maker. She wishes to be a do not resuscitate. She is a lifelong nonsmoker. She drinks perhaps 4-12 alcoholic beverages a week. No drug use. Smoking status: Never smoker Alcohol intake: current Drinks per week: 4 Substance use: never Substance use type: does not use Other substance usage details: denies Sexual Orientation (if Verbalized by the Patient): Straight or Heterosexual Spiritual care concerns: No Meds Home Medications and Allergies Home Medi
[2021-06-13 20:21] LABS: Alanine Aminotransferase 20 U/L (4-35); Alkaline Phosphatase 120 U/L (38-126); Aspartate Amino Transferase 36 U/L (14-36); Bilirubin,Total 0.3 mg/dL (0.2-1.3); Blood Urea Nitrogen 27 mg/dL (7-17); Calcium 9.4 mg/dL (8.4-10.2); Carbon Dioxide < 5 mmol/L (22-30); Chloride 105 mmol/L (98-107); Estimated Glomerular Filt Rate 37; Glucose 667 mg/dL (65-110); Potassium 3.9 mmol/L (3.4-5.0); Sodium 142 mmol/L (137-145)
--- NOTE | 2021-06-13 20:40 | ECG_ITS ---
Measurements Intervals [place] Rate: 120 P: [place]: 0 QRS: 39 QRSD: 93 T: -86 QT: 315 QTc: 447 Interpretive Statements PROBABLE ATRIAL FLUTTER/TACHYCARDIA WITH RAPID VENTRICULAR RESPONSE ST DEVIATION AND MODERATE T-WAVE ABNORMALITY, CONSIDER ANTEROLATERAL ISCHEMIA [-0.1+ mV T-WAVE IN V3-V6] ABNORMAL ECG COMPARED TO ECG 06/13/2021 17:28:29 ATRIAL FLUTTER IS NOW APPRECIATED Electronically Signed On 06-14-2021 11:21:14 CDT by Alberto Louise M.D.
[2021-06-13] MEDS: SODIUM CHLORIDE 0.9% IV 1,000 ML 125 ML IV CONT (21:06)
[2021-06-13 21:18] LABS: Ethanol < 10 mg/dL (<10)
--- NOTE | 2021-06-13 22:06 | ADMGEN ---
This patient, Karly Leslie, was admitted to Intensive Care Unit-6. Patient/family oriented to hospital policies and general routines including ID bracelet, bed and alarms, visiting hours, pain management, procedures, bathroom and other care routines, personal items, smoking policy, room service/diet, and visiting hours. Information on how to activate the Rapid Response Team has been discussed. Patient/Family are encouraged to report perceived risks to care and to ask questions if they do not understand what they are told or what they should do.
[2021-06-13 22:07] LABS: Troponin I < 0.012 ng/mL (0.000-0.034)
[2021-06-13 22:13] LABS: Glucose Point of Care > 500 mg/dl (65-105)
[2021-06-13] MEDS: INSULIN HUMAN REGULAR (*BKC) 100 UNITS in SODIUM CHLORIDE 0.9% IV 99 ML 16.4 UNITS IV CONT (23:01)
[2021-06-13 23:05] LABS: Glucose Point of Care 389 mg/dl (65-105)
[2021-06-13] MEDS: SODIUM CHLORIDE 0.9% IV 1,000 ML 150 ML IV CONT (23:37)
[2021-06-14] VITALS (12 sets, daily range): BP systolic 90–148; BP diastolic 45–87; PULSE 75–90; RESP 14–23; TEMP 36.4–37.2; O2SAT 94–100; BMI 27.5
[2021-06-14 00:16] LABS: Glucose Point of Care 342 mg/dl (65-105)
[2021-06-14 00:32] LABS: Blood Urea Nitrogen 25 mg/dL (7-17); Calcium 9.5 mg/dL (8.4-10.2); Carbon Dioxide < 5 mmol/L (22-30); Chloride 112 mmol/L (98-107); Estimated CRCL calculation 38 ml/min; Estimated Glomerular Filt Rate 55; Glucose 324 mg/dL (65-110); Phosphorus 4.1 mg/dL (2.5-4.5); Sodium 144 mmol/L (137-145)
[2021-06-14 00:41] LABS: Troponin I 0.016 ng/mL (0.000-0.034)
[2021-06-14] MEDS: KCL 20 MEQ/D5/0.45% SOD CHL 1,000 ML 150 ML IV CONT ×2 (01:35→08:44)
[2021-06-14 01:39] LABS: Glucose Point of Care 225 mg/dl (65-105)
[2021-06-14 02:29] LABS: Hemoglobin A1C > 14.0 % (<5.7)
[2021-06-14 02:59] LABS: Glucose Point of Care 169 mg/dl (65-105)
[2021-06-14 03:38] LABS: Anion Gap 17 mmol/L (8-16); Blood Urea Nitrogen 26 mg/dL (7-17); Calcium 9.3 mg/dL (8.4-10.2); Carbon Dioxide 8 mmol/L (22-30); Chloride 116 mmol/L (98-107); Estimated CRCL calculation 46 ml/min; Estimated Glomerular Filt Rate > 60; Glucose 179 mg/dL (65-110); Potassium 4.6 mmol/L (3.4-5.0); Sodium 141 mmol/L (137-145)
[2021-06-14 04:43] LABS: Glucose Point of Care 186 mg/dl (65-105)
[2021-06-14 05:47] LABS: Glucose Point of Care 153 mg/dl (65-105)
[2021-06-14 07:26] LABS: Glucose Point of Care 128 mg/dl (65-105)
[2021-06-14 08:13] LABS: Anion Gap 9 mmol/L (8-16); Blood Urea Nitrogen 24 mg/dL (7-17); Calcium 9.4 mg/dL (8.4-10.2); Carbon Dioxide 14 mmol/L (22-30); Chloride 117 mmol/L (98-107); Estimated CRCL calculation 62 ml/min; Estimated Glomerular Filt Rate > 60; Glucose 126 mg/dL (65-110); Potassium 4.1 mmol/L (3.4-5.0); Sodium 140 mmol/L (137-145)
[2021-06-14] MEDS: INSULIN HUMAN REGULAR (*BKC) 100 UNITS in SODIUM CHLORIDE 0.9% IV 99 ML 5.4 UNITS IV CONT (08:42)
[2021-06-14] MEDS: GABAPENTIN 300 MG CAPSULE PO ×3 (08:51→17:00)
[2021-06-14] MEDS: polyethylene glycoL 3350 17 GM POWD.PACK PO (08:51)
[2021-06-14] MEDS: ENOXAPARIN 40 MG/0.4 ML SYRINGE SUB-Q (08:51)
[2021-06-14] MEDS: SODIUM CHLORIDE 0.45% 1,000 ML 100 ML IV CONT ×2 (09:05→18:09)
[2021-06-14] MEDS: INSULIN GLARGINE (*BKC) 100 UNITS/ML 35 UNITS SUB-Q (09:08)
--- NOTE | 2021-06-14 09:10 | WPDCNINT ---
Assessment and Plan Assessment and plan (1) DKA (diabetic ketoacidosis): Qualifiers: Diabetes mellitus complication detail: without coma Diabetes mellitus type: type 2 Qualified Code(s): E11.10 - Type 2 diabetes mellitus with ketoacidosis without coma Code(s): E11.10 - Type 2 diabetes mellitus with ketoacidosis without coma Status: Acute Assessment and Plan: Patient's DKA most likely secondary to noncompliance. Patient has been admitted multiple times this year for DKA and likely does not take her insulin as prescribed. She claims she takes Lantus but does admit that she does not take her with medial insulin. She has been started on IV fluids and IV insulin infusion Her anion gap has closed at this time I will transition her to subcutaneous Lantus and subcutaneous insulin Start clear liquid diet advance as tolerated patient is now asymptomatic with no nausea vomiting or abdominal pain Change IV fluids to half-normal saline Consult clinical staff educator and furnace caretaker (2) Fecal impaction: Code(s): K56.41 - Fecal impaction Status: Acute Assessment and Plan: Ordered Tap water enema Scheduled MiraLax and p.r.n. Dulcolax suppository (3) Metabolic encephalopathy: Code(s): G93.41 - Metabolic encephalopathy Status: Acute Assessment and Plan: Likely secondary to DKA and is improving as patient is now alert oriented x3 (4) Leukocytosis (leucocytosis): Qualifiers: Leukocytosis type: unspecified Qualified Code(s): D72.829 - Elevated white blood cell count, unspecified Code(s): D72.829 - Elevated white blood cell count, unspecified Status: Acute Assessment and Plan: Likely secondary to SIRS Her UA, chest x-ray and abdomen CT does not suggest any infection (5) Hypothyroidism: Qualifiers: Hypothyroidism type: unspecified Qualified Code(s): E03.9 - Hypothyroidism, unspecified Code(s): E03.9 - Hypothyroidism, unspecified Status: Acute Assessment and Plan: Patient has documented history of hypothyroidism in her chart but is currently not on any levothyroxine I will check TSH level (6) Depression: Code(s): F32.A - Depression, unspecified Status: Acute Assessment and Plan: Patient has history of present with past but currently not on any antidepressant. Suspecting the depression may be playing a role in her noncompliance I will check TSH and try to discuss with daughter She may need treatment with antidepressant once her metabolic derangements are resolved. Additional Plan DVT prophylaxis -Lovenox Stress ulcer prophylaxis - Nutrition -advance diet to diabetic Code Status - Full Code Bass Fisher Consult Note Consult date: 06/14/21 HPI: Karly Leslie is a 71 year old female with past medical history of poorly-controlled diabetes and frequent admissions for DKA, medical noncompliance, hypertension who presented to the ER via EMS yesterday due to high glucoses and nausea and vomiting. Patient's glucoses at home were greater than 600 and a friend gave the patient a dose of insulin prior to calling EMS. Patient has had 5 hospitalizations at this facility for DKA since April of 2019 and is been hospitalized at other facilities as well for DKA. The patient's last hemoglobin A1c March 2021 was greater than 14. Patient claims that she takes a Lantus regularly but does admit to not taking her with me insulin during the day most of the time. Patient is alert oriented x3 at this time and denies any complaints. She states that she has pain all over her body which is chronic for which she takes Advil at home. Patient is a poor historian and mostly answers no to all questions. At this time patient denies fever, chest pain, shortness of breath, cough, nausea vomiting, abdominal pain,, diarrhea, headache. She does admit to being constipated. She states he does feel down sometimes denies any suicidal
[2021-06-14 09:59] LABS: Glucose Point of Care 95 mg/dl (65-105)
[2021-06-14 11:54] LABS: Hematocrit 34.6 % (37.0-47.0); Hemoglobin 11.3 g/dL (12.0-15.0); Mean Corpuscular HGB Conc 32.7 g/dl (32-36); Mean Corpuscular Hemoglobin 31.6 pg (26-34); Mean Corpuscular Volume 96.6 fl (80-100); Mean Platelet Volume 9.2 fl (7.4-10.4); Platelet Count Result 260 k/mm3 (150-375); Red Blood Count 3.58 M/mm3 (4.2-5.4); Red Cell Distribution Width 14.2 % (11.5-14.5); White Blood Count 12.3 K/mm3 (4.5-10.0)
[2021-06-14 11:57] LABS: Glucose Point of Care 115 mg/dl (65-105)
[2021-06-14 12:05] LABS: Anion Gap 9 mmol/L (8-16); Blood Urea Nitrogen 21 mg/dL (7-17); Carbon Dioxide 15 mmol/L (22-30); Chloride 114 mmol/L (98-107); Estimated CRCL calculation 62 ml/min; Estimated Glomerular Filt Rate > 60; Glucose 123 mg/dL (65-110); Magnesium 1.7 mg/dL (1.6-2.3); Potassium 3.8 mmol/L (3.4-5.0); Sodium 138 mmol/L (137-145)
[2021-06-14] MEDS: BISACODYL 10 MG SUPPOSITORY RECTAL (12:29)
--- NOTE | 2021-06-14 12:30 | PCCDE ---
Spoke with SAMMY Crowder this morning to inquire about patient's current mental status and the best time to educate patient today. RN stated patient was sleepy, but more oriented, answering questions appropriately this morning. Agreed that the most appropriate time for this RN to educate patient would be around noon today. Arrived to patient room at noon. Patient still very sleepy, despite lights on and verbal/physical stimuli, including boosting patient up in bed. Unable to educate patient at this time. SAMMY Crowder and this RN agreed that it would be more appropriate to re-evaluate patient tomorrow or Monday for educational needs when she is more awake. Afshan Burris RN
--- NOTE | 2021-06-14 16:35 | PM.IMPN ---
Progress Note: A&P Assessment and Plan (1) DKA (diabetic ketoacidosis): Qualifiers: Diabetes mellitus complication detail: without coma Diabetes mellitus type: type 2 Qualified Code(s): E11.10 - Type 2 diabetes mellitus with ketoacidosis without coma Code(s): E11.10 - Type 2 diabetes mellitus with ketoacidosis without coma Status: Acute Assessment and Plan: Patient's DKA most likely secondary to noncompliance. Patient has been admitted multiple times this year for DKA and likely does not take her insulin as prescribed. She claims she takes Lantus but does admit that she does not take her with medial insulin. She has been started on IV fluids and IV insulin infusion Her anion gap has closed at this time I will transition her to subcutaneous Lantus and subcutaneous insulin Start clear liquid diet advance as tolerated patient is now asymptomatic with no nausea vomiting or abdominal pain Change IV fluids to half-normal saline Consult music educator and home care chaplain 06/14/2021 interval history: patient with recurrent hyperglycemia and DKA present with blood sugar of 600 patient was vigorously hydrated and started on IV insulin drip patient off insulin drip currently on long-acting Lantus 35 units q.day and sliding scale, discussed with laboratory chemical assistant patient with a recurrent DKA and several admission patient appears to be depressed and may need a cardiac evaluation communicated with psychiatrist recommended to do mini-mental state exam to check with dementia a patient has dementia patient is to be placed assisted with will help her diabetes management will continue to monitor further recommendation to follow. (2) Fecal impaction: Code(s): K56.41 - Fecal impaction Status: Acute Assessment and Plan: Ordered Tap water enema Scheduled MiraLax and p.r.n. Dulcolax suppository (3) Metabolic encephalopathy: Code(s): G93.41 - Metabolic encephalopathy Status: Acute Assessment and Plan: Likely secondary to DKA and is improving as patient is now alert oriented x3 (4) Leukocytosis (leucocytosis): Qualifiers: Leukocytosis type: unspecified Qualified Code(s): D72.829 - Elevated white blood cell count, unspecified Code(s): D72.829 - Elevated white blood cell count, unspecified Status: Acute Assessment and Plan: Likely secondary to SIRS Her UA, chest x-ray and abdomen CT does not suggest any infection (5) Hypothyroidism: Qualifiers: Hypothyroidism type: unspecified Qualified Code(s): E03.9 - Hypothyroidism, unspecified Code(s): E03.9 - Hypothyroidism, unspecified Status: Acute Assessment and Plan: Patient has documented history of hypothyroidism in her chart but is currently not on any levothyroxine I will check TSH level (6) Depression: Code(s): F32.A - Depression, unspecified Status: Acute Assessment and Plan: Patient has history of present with past but currently not on any antidepressant. Suspecting the depression may be playing a role in her noncompliance I will check TSH and try to discuss with daughter She may need treatment with antidepressant once her metabolic derangements are resolved. Additional Plan DVT prophylaxis -Lovenox Stress ulcer prophylaxis - Nutrition -advance diet to diabetic Code Status - Full Code Subjective Date/time seen: 06/14/21 16:35 Chief Complaint: High blood sugars, nausea vomiting HPI-Narrative: 71-year-old female with past medical history of medical noncompliance, hypertension, and uncontrolled diabetes mellitus will multiple admissions for DKA who presented to the ER via EMS due to high glucoses in nausea and vomiting. Patient's glucoses at home were greater than 600 and a friend gave the patient a dose of insulin prior to calling EMS. Patient has had 5 hospitalizations at this facility for DKA since April of 2019 and is been hospitalized at other faci
[2021-06-14 16:50] LABS: Anion Gap 11 mmol/L (8-16); Blood Urea Nitrogen 18 mg/dL (7-17); Calcium 9.1 mg/dL (8.4-10.2); Carbon Dioxide 13 mmol/L (22-30); Chloride 112 mmol/L (98-107); Estimated CRCL calculation 73 ml/min; Estimated Glomerular Filt Rate > 60; Glucose 309 mg/dL (65-110); Sodium 136 mmol/L (137-145)
[2021-06-14] MEDS: INSULIN ASPART (*BKC) 100 UNITS/ML SUB-Q ×2 (16:58→20:52)
[2021-06-14 17:03] LABS: Glucose Point of Care 298 mg/dl (65-105)
--- NOTE | 2021-06-14 17:24 | PC.NURSE ---
This patient, Karly Leslie, was transferred to [[facility] ] on 06/14/21 at 1724. Personal belongings sent with patient. Report given to [Marixa ]. Appropriate documentation sent with patient.
[2021-06-14] MEDS: PRAMIPEXOLE 1 MG TABLET 3 MG PO (20:52)
[2021-06-14 21:42] LABS: Glucose Point of Care 215 mg/dl (65-105)
[2021-06-15 03:00] LABS: Glucose Point of Care 139 mg/dl (65-105)
[2021-06-15 05:37] VITALS: BP 113/67; PULSE 72; RESP 18; TEMP 36.4; O2SAT 98
[2021-06-15 06:28] LABS: Hematocrit 39.2 % (37.0-47.0); Hemoglobin 12.3 g/dL (12.0-15.0); Mean Corpuscular HGB Conc 31.4 g/dl (32-36); Mean Corpuscular Hemoglobin 31.4 pg (26-34); Mean Platelet Volume 9.7 fl (7.4-10.4); Platelet Count Result 190 k/mm3 (150-375); Red Blood Count 3.92 M/mm3 (4.2-5.4); White Blood Count 8.3 K/mm3 (4.5-10.0)
[2021-06-15 06:42] LABS: Alanine Aminotransferase 15 U/L (4-35); Albumin Level 3.1 g/dL (3.5-5.1); Alkaline Phosphatase 88 U/L (38-126); Anion Gap 5 mmol/L (8-16); Aspartate Amino Transferase 25 U/L (14-36); Bilirubin,Total 0.3 mg/dL (0.2-1.3); Blood Urea Nitrogen 12 mg/dL (7-17); Calcium 9.6 mg/dL (8.4-10.2); Carbon Dioxide 17 mmol/L (22-30); Chloride 111 mmol/L (98-107); Estimated CRCL calculation 89 ml/min; Estimated Glomerular Filt Rate > 60; Glucose 121 mg/dL (65-110); Phosphorus 1.5 mg/dL (2.5-4.5); Potassium 3.5 mmol/L (3.4-5.0); Sodium 133 mmol/L (137-145)
[2021-06-15] MEDS: SODIUM CHLORIDE 0.45% 1,000 ML 100 ML IV CONT (06:47)
[2021-06-15 07:45] LABS: Glucose Point of Care 117 mg/dl (65-105)
[2021-06-15] MEDS: GABAPENTIN 300 MG CAPSULE PO ×3 (08:08→16:35)
[2021-06-15] MEDS: ENOXAPARIN 40 MG/0.4 ML SYRINGE SUB-Q (08:09)
[2021-06-15] MEDS: INSULIN GLARGINE (*BKC) 100 UNITS/ML 35 UNITS SUB-Q (08:09)
[2021-06-15 09:29] VITALS: O2SAT 98
[2021-06-15] MEDS: POTASSIUM CHLORIDE 20 MEQ TABLET 40 MEQ PO (09:54)
[2021-06-15 11:34] LABS: Glucose Point of Care 225 mg/dl (65-105)
[2021-06-15] MEDS: INSULIN ASPART (*BKC) 100 UNITS/ML SUB-Q ×3 (12:14→20:42)
[2021-06-15 13:00] VITALS: BP 111/74; PULSE 90; RESP 18; TEMP 36.9; O2SAT 100
--- NOTE | 2021-06-15 13:34 | PM.IMPN ---
Progress Note: A&P Assessment and Plan (1) DKA (diabetic ketoacidosis): Qualifiers: Diabetes mellitus complication detail: without coma Diabetes mellitus type: type 2 Qualified Code(s): E11.10 - Type 2 diabetes mellitus with ketoacidosis without coma Code(s): E11.10 - Type 2 diabetes mellitus with ketoacidosis without coma Status: Acute Assessment and Plan: Patient's DKA most likely secondary to noncompliance. Patient has been admitted multiple times this year for DKA and likely does not take her insulin as prescribed. She claims she takes Lantus but does admit that she does not take her with medial insulin. She has been started on IV fluids and IV insulin infusion Her anion gap has closed at this time I will transition her to subcutaneous Lantus and subcutaneous insulin Start clear liquid diet advance as tolerated patient is now asymptomatic with no nausea vomiting or abdominal pain Change IV fluids to half-normal saline Consult landscape manager and spiritual care coordinator 06/14/2021 interval history: patient with recurrent hyperglycemia and DKA present with blood sugar of 600 patient was vigorously hydrated and started on IV insulin drip patient off insulin drip currently on long-acting Lantus 35 units q.day and sliding scale, discussed with planner chief patient with a recurrent DKA and several admission patient appears to be depressed and may need a cardiac evaluation communicated with psychiatrist recommended to do mini-mental state exam to check with dementia a patient has dementia patient is to be placed senior living with will help her diabetes management will continue to monitor further recommendation to follow. 06/15/2021 interval history: patient with recurrent hyperglycemia and DKA present with blood sugar of 600 patient was vigorously hydrated and started on IV insulin drip patient off insulin drip currently on long-acting Lantus 35 units q.day and sliding scale, on 06/14 discussed with planner chief patient with a recurrent DKA and several admission patient appears to be depressed and may need a psychiatry evaluation, communicated with psychiatrist recommended to do mini-mental state exam to check with dementia a patient has dementia patient is to be placed senior living with will help her diabetes management, today patient had a mini-mental scored 29/30 patient be seen by Psychiatry and further recommendation to follow once clinically stable will sugars close to normal will continue present management. (2) Fecal impaction: Code(s): K56.41 - Fecal impaction Status: Acute Assessment and Plan: Ordered Tap water enema Scheduled MiraLax and p.r.n. Dulcolax suppository (3) Metabolic encephalopathy: Code(s): G93.41 - Metabolic encephalopathy Status: Acute Assessment and Plan: Likely secondary to DKA and is improving as patient is now alert oriented x3 (4) Leukocytosis (leucocytosis): Qualifiers: Leukocytosis type: unspecified Qualified Code(s): D72.829 - Elevated white blood cell count, unspecified Code(s): D72.829 - Elevated white blood cell count, unspecified Status: Acute Assessment and Plan: Likely secondary to SIRS Her UA, chest x-ray and abdomen CT does not suggest any infection (5) Hypothyroidism: Qualifiers: Hypothyroidism type: unspecified Qualified Code(s): E03.9 - Hypothyroidism, unspecified Code(s): E03.9 - Hypothyroidism, unspecified Status: Acute Assessment and Plan: Patient has documented history of hypothyroidism in her chart but is currently not on any levothyroxine I will check TSH level (6) Depression: Code(s): F32.A - Depression, unspecified Status: Acute Assessment and Plan: Patient has history of present with past but currently not on any antidepressant. Suspecting the depression may be playing a role in her noncompliance I will check TSH and try to discuss with bobbi
[2021-06-15 16:27] LABS: Glucose Point of Care 240 mg/dl (65-105)
[2021-06-15 20:00] VITALS: O2SAT 95
[2021-06-15 20:01] VITALS: O2SAT 96
--- NOTE | 2021-06-15 20:40 | WPDCNPSYCH ---
[facility] Data of Consult Date/Time: 06/15/21 20:40 Requesting Physician: Carmen Najera DO Primary Care Provider: Corinna Mcmullen NP Consult Narrative Narrative: Diagnoses: Major depressive disorder, single episode, moderate Differential diagnoses: Neurocognitive disorder (dementia), possibly of the Alzheimer's type, mild, with depression Discussion: Patient presents clearly with a depressive syndrome. However, she also has a history of fluctuating mental state. The patient reports that her memory has become progressively more poor. She also reports that she takes a memory medicine however she is unable to recall the name of the memory medicine and reports that she does not recall when she is supposed to take that medicine. She also reports difficulty remembering to take her medications including her insulin. The patient might possibly have a dementing illness with a depressive syndrome. Certainly a pseudo dementia is possible where her memory could be more disturbed from depressive syndrome. Or, the patient might have a pseudo depression where memory disturbance is the primary pathology that might mimic a depressive syndrome. The patient is reported to have a mini-mental status exam score of 29/30. However concerns about the scoring of the mini-mental status exam could potentially be called into question. Plan: Cymbalta 30mg p.o. q.a.m. for the target symptom of her mixed anxious depressive syndrome as well as her diabetic neuropathy will be started. Additional medical evaluation Care coordination consult to document outpatient follow-up with a psychiatrist, counselor, and her primary care practitioner is strongly recommended. Care coordination consult to liaison removal of the gun from the patient's home is recommended. Patient should avoid alcohol. Reason for hospitalization: The patient is a 71-year-old lady admitted for the 6th time in 3 months for diabetic ketoacidosis with mental status changes oriented to name only in the context of pharmacologic noncompliance. Since good medical management of this patient has occurred she is now alert and oriented x4. Care coordination documents a mini-mental status exam score of 29/30. Reason for consultation: The patient is a 71-year-old lady whose consultation was ordered by Dylon Matta for depression. Review of systems: Patient denies any problems with her head chest abdomen arms legs or joints; however, she has during the text of her discussion described a variety of different physical pains and complications associated with her diabetes and peripheral neuropathy. Her history is internally inconsistent. This may be further evidence of a memory deficit of some sort. Mental status exam: The patient has a self-care deficit. Eye contact is normal. Posture is lying in a hospital bed. Psychomotor activity is reduced but consistent with Gaurav in a hospital bed. Speech is normal in rate, volume, and is goal-directed. Mood is ?medium happy. ? Her affect is flat and depressed and tearful at times. She denies suicidal or homicidal ideation. She denies being an injury risk to herself or others. She denies being a property damage risk. She denies any auditory or visual hallucinations or paranoia. She has no objective signs of psychosis. Her thought process is logical, sequential, and goal-directed. She has no self talk. She is not responding to inner stimuli. At time of interview the patient seems to have some mild deficits of intelligence, fund of knowledge, insight, and judgment. Medical evaluation: CBC: WBCs are 8.3; hemoglobin is 12.3 TSH is 1.590 Blood alcohol level less than 10 Urine drug screen was not done at this admission but was negative on 05/31/2021 Urinalysis: Protein 2+; glucose 3+; ketones 4+; bilirubin 2+ Comprehensive metabolic panel has additional findings of resolving fluid electrolyte imbalance but is essentially unremarkable. EKG: Sinus tachycardia with a h
[2021-06-15] MEDS: PRAMIPEXOLE 1 MG TABLET 3 MG PO (20:42)
[2021-06-15 20:53] LABS: Glucose Point of Care 236 mg/dl (65-105)
[2021-06-15 22:00] VITALS: BP 116/68; PULSE 77; RESP 17; TEMP 36.6; O2SAT 95
[2021-06-15 22:33] LABS: Vitamin D 25 Hydroxy 23.3 ng/mL
[2021-06-15 22:51] LABS: Hepatitis B Surface Antigen Negative (Negative)
[2021-06-15 22:56] LABS: HAV RESULT Negative (Negative); Hepatitis B Core IgM Result Negative (Negative)
[2021-06-15 22:57] LABS: HIV 1/2 Ab P24 Ag Result Negative (Negative)
[2021-06-15 23:08] LABS: Hepatitis C Virus Antibody Negative (Negative)
[2021-06-15 23:22] LABS: Folic Acid 8.7 ng/mL (2.76->20); Vitamin B12 > 1000.0 pg/mL (239-931)
[2021-06-16 05:06] VITALS: BP 118/73; PULSE 69; RESP 16; TEMP 36.6; O2SAT 98
[2021-06-16 05:38] LABS: Hematocrit 35.4 % (37.0-47.0); Hemoglobin 11.5 g/dL (12.0-15.0); Mean Corpuscular HGB Conc 32.5 g/dl (32-36); Mean Corpuscular Hemoglobin 31.7 pg (26-34); Mean Corpuscular Volume 97.5 fl (80-100); Mean Platelet Volume 9.3 fl (7.4-10.4); Platelet Count Result 186 k/mm3 (150-375); Red Blood Count 3.63 M/mm3 (4.2-5.4); Red Cell Distribution Width 14.6 % (11.5-14.5); White Blood Count 4.6 K/mm3 (4.5-10.0)
[2021-06-16 05:52] LABS: Alanine Aminotransferase 15 U/L (4-35); Albumin Level 2.8 g/dL (3.5-5.1); Alkaline Phosphatase 78 U/L (38-126); Anion Gap 1 mmol/L (8-16); Aspartate Amino Transferase 26 U/L (14-36); Bilirubin,Total 0.4 mg/dL (0.2-1.3); Blood Urea Nitrogen 10 mg/dL (7-17); Carbon Dioxide 23 mmol/L (22-30); Chloride 108 mmol/L (98-107); Estimated CRCL calculation 116 ml/min; Estimated Glomerular Filt Rate > 60; Glucose 150 mg/dL (65-110); Phosphorus 1.7 mg/dL (2.5-4.5); Potassium 3.7 mmol/L (3.4-5.0); Sodium 132 mmol/L (137-145)
[2021-06-16 07:37] LABS: Glucose Point of Care 128 mg/dl (65-105)
[2021-06-16 08:00] VITALS: PULSE 69; RESP 16; O2SAT 98
[2021-06-16] MEDS: ENOXAPARIN 40 MG/0.4 ML SYRINGE SUB-Q (08:40)
[2021-06-16] MEDS: GABAPENTIN 300 MG CAPSULE PO ×2 (08:40→11:52)
[2021-06-16] MEDS: DULoxetine HCL 30 MG CAPSULE.DR PO (08:40)
[2021-06-16] MEDS: INSULIN GLARGINE (*BKC) 100 UNITS/ML 35 UNITS SUB-Q (08:40)
[2021-06-16] MEDS: polyethylene glycoL 3350 17 GM POWD.PACK PO (08:40)
--- NOTE | 2021-06-16 09:38 | PC.NURSE ---
cartagena removed void good.
[2021-06-16 11:24] LABS: Glucose Point of Care 321 mg/dl (65-105)
--- NOTE | 2021-06-16 11:32 | PM.DS ---
DS: Admitting Diagnosis Discharge Date 06/16/2021 Admitting Diagnosis DKA DS: Discharge Diagnosis Discharge Diagnosis (1) DKA (diabetic ketoacidosis): Qualifiers: Diabetes mellitus complication detail: without coma Diabetes mellitus type: type 2 Qualified Code(s): E11.10 - Type 2 diabetes mellitus with ketoacidosis without coma Code(s): E11.10 - Type 2 diabetes mellitus with ketoacidosis without coma Status: Acute Assessment and Plan: Patient's DKA most likely secondary to noncompliance. Patient has been admitted multiple times this year for DKA and likely does not take her insulin as prescribed. She claims she takes Lantus but does admit that she does not take her with medial insulin. She has been started on IV fluids and IV insulin infusion Her anion gap has closed at this time I will transition her to subcutaneous Lantus and subcutaneous insulin Start clear liquid diet advance as tolerated patient is now asymptomatic with no nausea vomiting or abdominal pain Change IV fluids to half-normal saline Consult drywall professional and resident care provider 06/14/2021 interval history: patient with recurrent hyperglycemia and DKA present with blood sugar of 600 patient was vigorously hydrated and started on IV insulin drip patient off insulin drip currently on long-acting Lantus 35 units q.day and sliding scale, discussed with human projectile patient with a recurrent DKA and several admission patient appears to be depressed and may need a cardiac evaluation communicated with psychiatrist recommended to do mini-mental state exam to check with dementia a patient has dementia patient is to be placed group home with will help her diabetes management will continue to monitor further recommendation to follow. 06/15/2021 interval history: patient with recurrent hyperglycemia and DKA present with blood sugar of 600 patient was vigorously hydrated and started on IV insulin drip patient off insulin drip currently on long-acting Lantus 35 units q.day and sliding scale, on 06/14 discussed with human projectile patient with a recurrent DKA and several admission patient appears to be depressed and may need a psychiatry evaluation, communicated with psychiatrist recommended to do mini-mental state exam to check with dementia a patient has dementia patient is to be placed group home with will help her diabetes management, today patient had a mini-mental scored 29/30 patient be seen by Psychiatry and further recommendation to follow once clinically stable will sugars close to normal will continue present management. (2) Fecal impaction: Code(s): K56.41 - Fecal impaction Status: Acute Assessment and Plan: Ordered Tap water enema Scheduled MiraLax and p.r.n. Dulcolax suppository (3) Metabolic encephalopathy: Code(s): G93.41 - Metabolic encephalopathy Status: Acute Assessment and Plan: Likely secondary to DKA and is improving as patient is now alert oriented x3 (4) Leukocytosis (leucocytosis): Qualifiers: Leukocytosis type: unspecified Qualified Code(s): D72.829 - Elevated white blood cell count, unspecified Code(s): D72.829 - Elevated white blood cell count, unspecified Status: Acute Assessment and Plan: Likely secondary to SIRS Her UA, chest x-ray and abdomen CT does not suggest any infection (5) Hypothyroidism: Qualifiers: Hypothyroidism type: unspecified Qualified Code(s): E03.9 - Hypothyroidism, unspecified Code(s): E03.9 - Hypothyroidism, unspecified Status: Acute Assessment and Plan: Patient has documented history of hypothyroidism in her chart but is currently not on any levothyroxine I will check TSH level (6) Depression: Code(s): F32.A - Depression, unspecified Status: Acute Assessment and Plan: Patient has history of present with past but currently not on any antidepressant. Suspecting the depression ma
[2021-06-16] MEDS: INSULIN ASPART (*BKC) 100 UNITS/ML SUB-Q (11:51)
[2021-06-16 12:39] LABS: Rapid Plasma Reagin Non-Reactive (NonReactive)
== END 2021-06-16 12:26 | disposition home or self-care (01) | DRG 637 ==
LOC: ANHED 20:18 → ANHICU 20:26 → ANH3MEDSUR 06-15 08:56 → ANHICU 06-17 14:47
PROVIDERS: Internal Medicine; Psychiatry & Neurology Psychiatry; Admitting Provider Internal Medicine; Emergency Provider Emergency Medicine; PCP Nurse Practitioner Family; Visit Provider Family Medicine
DX: E11.10 Type 2 diabetes mellitus with ketoacidosis without coma (principal); G93.41 Metabolic encephalopathy; N17.9 Acute kidney failure, unspecified; F32.1 Major depressive disorder, single episode, moderate; Z91.14 Patient's other noncompliance with medication regimen; K56.41 Fecal impaction; E03.9 Hypothyroidism, unspecified; D72.829 Elevated white blood cell count, unspecified; I10 Essential (primary) hypertension; D64.9 Anemia, unspecified; E11.42 Type 2 diabetes mellitus with diabetic polyneuropathy; M79.7 Fibromyalgia; E78.5 Hyperlipidemia, unspecified; E11.29 Type 2 diabetes mellitus with other diabetic kidney complication; R80.9 Proteinuria, unspecified; E11.21 Type 2 diabetes mellitus with diabetic nephropathy; G25.81 Restless legs syndrome; G30.8 Other Alzheimer's disease; F02.80 Dementia in other diseases classified elsewhere, unspecified severity, without behavioral disturbance, psychotic disturbance, mood disturbance, and anxiety; Z66 Do not resuscitate; Z86.16 Personal history of COVID-19; Z85.43 Personal history of malignant neoplasm of ovary; Z90.722 Acquired absence of ovaries, bilateral; Z90.710 Acquired absence of both cervix and uterus
CPT/HCPCS: 36415; 36600; 70450; 71045; 74176; 80048; 80053; 80074; 80307; 81001; 82010; 82306; 82607; 82746; 82805; 82948; 83036; 83735; 84100; 84443; 84484; 85025; 85027; 86592; 86703; 93005; 96365; 96366; 96368; 96372; 96375; 96376; 97161; 97165; 99285; A9270; G0378; G0432; J1650; J1815; J3480; J7030

== ENCOUNTER 2021-06-26 16:58 | Inpatient (IN) | payer MEDICARE, OTHER, SELFPAY ==
--- NOTE | ~2021-06-26 | XR_ITS ---
EXAM: XR abdomen/kub 1V HISTORY: ABD PAIN COMPARISON: None available FINDINGS: Normal bowel gas pattern. No organomegaly. No abnormal abdominal calcification. Pelvic phl eboliths. Regional bones and soft tissues normal for age. IMPRESSION: No obstruction or ileus. Reviewed, dictated and finalized at location K. IMPRESSION: No obstruction or ileus.
--- NOTE | ~2021-06-26 | XR_ITS ---
EXAMINATION: XR barium swallow modified DATE: 06/29/2021 09:57 INDICATION: Dysphagia TECHNIQUE: Modified barium esophagram was performed by myself to administered fluoroscopy, in conjun ction with speech pathologist who administered barium in varying consistencies as per speech patholog ist documentation. This was recorded on tape. A single fluoroscopic spot image was recorded. The DAP for this procedure was 2.1 Gycm2. Fluoroscopy exposure time was 1.368 minutes. FINDINGS: Oral stage: Adequate function. Pharyngeal phase: Adequate function. Laryngeal penetration: None. Aspiration: None. Laryngeal sensitivity: Not applicable. IMPRESSION: Unremarkable modified barium swallow. Please refer to speech pathologist findings and spe [facility] feeding recommendations. Reviewed, dictated and finalized at location A. IMPRESSION: Unremarkable modified barium swallow. Please refer to speech pathol ogist findings and specific feeding recommendations.
[2021-06-26 17:00] VITALS: BP 112/83; PULSE 137; RESP 28; TEMP 36.6; O2SAT 100
--- NOTE | 2021-06-26 17:17 | ED.GENADULT ---
HPI - General Adult General Chief complaint: Recheck/Abnormal Lab/Rx Stated complaint: n/v high blood sugar Time Seen by Provider: 06/26/21 17:06 History of Present Illness HPI narrative: pt here again with n/v elevated blood sugar due to not taking insulin/checking blood sugars, long h/.o this in past, staff knows her well no other new f/uri/cp/sob/neur chagnes/trauma/loc/d/urine changes Related Data Home Medications Medication Instructions Recorded Confirmed insulin glargine 100 unit/mL 10 unit SUBCUT HS ml 06/07/21 06/13/21 subcutaneous solution Lantus U-100 Insulin 35 unit SUBCUT DAILY 06/13/21 06/13/21 metformin 1,000 mg PO BID 06/13/21 06/13/21 Allergies Allergy/AdvReac Type Severity Reaction Status Date / Time banana Allergy Severe SEVERE Verified 06/22/21 07:59 HIVES acetaminophen [From Tylenol] AdvReac Intermediate Nausea and Verified 06/22/21 07:59 Vomiting aspirin AdvReac Intermediate Nausea and Verified 06/22/21 07:59 Vomiting fluoxetine [From Prozac] AdvReac Hallucinati Verified 06/22/21 07:59 ng Review of Systems Review of Systems: CONSTITUTIONAL: Denies fever, chills, or sweats. EYES: Denies visual changes, redness, or discharge. ENT: Denies rhinorrhea, congestion, sore throat, or otalgia. CARDIOVASCULAR: Denies chest pain, palpitations, or edema. RESPIRATORY: Denies cough or dyspnea. GASTROINTESTINAL: Denies abdominal pain, or diarrhea. has n/v GENITOURINARY: Denies dysuria or hematuria. SKIN: Denies rash or itching. MUSCULOSKELETAL: Denies back pain, joint pain, or myalgia. NEUROLOGIC: Denies headache, numbness, hasgeneralized weakness PSYCHIATRIC: Denies anxiety or depression. [facility] Past Medical History Medical History Back pain Chronic anemia Depression Diabetic peripheral neuropathy Fibromyalgia Frequent falls Hyperlipidemia Hypertension Hypothyroidism Memory change On Aricept Ovarian cancer At the age of 33, status post hysterectomy. Patient states that half an ovary was left during surgery. She required no further treatment. Pneumonia due to COVID-19 virus (~09/2020) Proteinuria due to type 2 diabetes mellitus Restless leg syndrome Shingles Type 2 diabetes mellitus Hemoglobin A1c was > 14% 04/09/2021 C-peptide 0.63. Surgical History Surgical History History of tonsillectomy History of total hysterectomy with bilateral salpingo-oophorectomy (BSO) History of tubal ligation Family History Family History Grandparent Family history of premature coronary heart disease, Onset Age: 64 Father Family history of respiratory disorder, Onset Age: 87 Family history of cardiovascular disease Patient's father is Family history of Alzheimer's disease Cerebrovascular accident Mother Family history of primary malignant neoplasm of liver, Onset Age: 64 Family history of malignant neoplasm Patient's mother is , Onset Age: 64 Family history of malignant neoplasm of breast in first degree relative Sibling Heart attack Sibling Heart attack Social History Social History Social History: The patient is . She lives in her own home in [place], [place]. She does not work. She has 2 daughters, and designates her daughter Jose Posey, as her surrogate decision maker. She wishes to be a do not resuscitate. She is a lifelong nonsmoker. She drinks perhaps 4-12 alcoholic beverages a week. No drug use. Smoking status: Never smoker Alcohol intake: never Drinks per week: 4 Substance use: never Substance use type: does not use Other substance usage details: denies Sexual Orientation (if Verbalized by the Patient): Straight or Heterosexual Spiritual care concerns: No Exam Narrative: APPEA
[2021-06-26 17:25] LABS: Glucose Point of Care > 500 mg/dl (65-105)
[2021-06-26] MEDS: SODIUM CHLORIDE 0.9% IV 1,000 ML 999 ML IV CONT ×3 (17:31→19:41)
[2021-06-26 17:32] LABS: Alveolar/Arterial O2 Gradient 15.4 mmHg; Base Excess ABG -21.2 mEq/l (+/-2.0); Carboxyhemoglobin 0.7 % THb (0-2.0); Fractional Inspired Oxygen 21 %; HCO3 ABG 4.5 mEq/l (22.0-26.0); Methemoglobin ABG 0.5 %THb (0-1.5); Oxygen Saturation ABG 97.5 % (95.0-100.0); Oxyhemoglobin 96.8 % THb (90.0-100.0); PO2 ABG 119.4 mmHg (80.0-100.0); PO2 FiO2 Ratio Arterial Blood 5.69 %; Total Hemoglobin 15.3 g/dL (12.0-18.0)
[2021-06-26 17:35] LABS: Basophils Percent Auto 0.3 % (0.2-1.2); Device ROOM AIR; Hematocrit 49.7 % (37.0-47.0); Hemoglobin 15.2 g/dL (12.0-15.0); Immature Granulocyte Absolute 0.09 K/mm3 (0.00-0.031); Immature Granulocyte Percent A 0.6 % (0-0.5); Lymphocytes Absolute Auto 1.42 K/mm3 (0.9-3.2); Lymphocytes Percent Auto 9.2 % (18.3-44.2); Mean Corpuscular HGB Conc 30.6 g/dl (32-36); Mean Corpuscular Hemoglobin 31.1 pg (26-34); Mean Corpuscular Volume 101.6 fl (80-100); Mean Platelet Volume 9.3 fl (7.4-10.4); Monocytes Absolute Auto 1.1 K/mm3 (0.1-0.6); Neutrophils Absolute Auto 12.8 K/mm3 (1.3-6.7); Neutrophils Percent Auto 82.9 % (45.5-73.1); PCO2 ABG 12.5 mmHg (35.0-45.0); Platelet Count Result 450 k/mm3 (150-375); Red Blood Count 4.89 M/mm3 (4.2-5.4); Red Cell Distribution Width 14.4 % (11.5-14.5); Site Drawn RIGHT BRACHIAL; White Blood Count 15.4 K/mm3 (4.5-10.0); pH ABG 7.174 (7.350-7.450)
[2021-06-26 17:50] LABS: Alanine Aminotransferase 18 U/L (4-35); Albumin Level 5.4 g/dL (3.5-5.1); Alkaline Phosphatase 160 U/L (38-126); Aspartate Amino Transferase 24 U/L (14-36); Bilirubin,Total 0.8 mg/dL (0.2-1.3); Blood Urea Nitrogen 38 mg/dL (7-17); Calcium 12.9 mg/dL (8.4-10.2); Carbon Dioxide < 5 mmol/L (22-30); Chloride 95 mmol/L (98-107); Estimated CRCL calculation 27 ml/min; Estimated Glomerular Filt Rate 32; Lipase 329 U/L (23-300); Magnesium 2.8 mg/dL (1.6-2.3); Potassium 6.3 mmol/L (3.4-5.0); Sodium 135 mmol/L (137-145)
[2021-06-26] MEDS: ONDANSETRON INJ 4 MG/2 ML VIAL IV PUSH (18:01)
[2021-06-26] MEDS: INSULIN HUMAN REGULAR (*BKC) 100 UNITS/ML 10 UNITS IV PUSH (18:01)
[2021-06-26] MEDS: SODIUM BICARBONATE 8.4% 50 MEQ/50 ML SYRINGE IV PUSH (18:01)
[2021-06-26 18:02] LABS: Glucose 643 mg/dL (65-110)
[2021-06-26 18:04] VITALS: BP 113/86; PULSE 128; RESP 26; O2SAT 100
[2021-06-26 18:23] LABS: Glucose Point of Care > 500 mg/dl (65-105)
[2021-06-26] MEDS: INSULIN HUMAN REGULAR (*BKC) 100 UNITS in SODIUM CHLORIDE 0.9% IV 99 ML 9.92 UNITS IV CONT (18:36)
[2021-06-26 18:40] VITALS: BP 141/64; PULSE 88; RESP 20; O2SAT 100
--- NOTE | 2021-06-26 19:02 | ECG_ITS ---
Measurements Intervals [place] Rate: 73 P: 65 MD: 154 QRS: 24 QRSD: 98 T: 72 QT: 384 QTc: 426 Interpretive Statements SINUS RHYTHM LEFT VENTRICULAR HYPERTROPHY WITH ST-T CHANGE ST-T WAVE ABNORMALITY IN ANTEROLATERAL LEADS- CONSIDER ISCHEMIA ABNORMAL ECG Electronically Signed On 06-27-2021 6:34:04 CDT by Unruly Panchal D.O.
--- NOTE | 2021-06-26 19:27 | PC.NURSE ---
Pt refused to be catheterized at this time RN notified.
[2021-06-26 19:32] LABS: Glucose Point of Care 415 mg/dl (65-105)
[2021-06-26 19:53] VITALS: BP 135/67; PULSE 69; RESP 13; O2SAT 97
[2021-06-26 20:13] VITALS: BP 132/65; PULSE 75; RESP 19; O2SAT 100
--- NOTE | 2021-06-26 20:16 | PC.NURSE ---
This patient, Karly Leslie, was admitted to Intensive Care Unit-5. Patient/family oriented to hospital policies and general routines including ID bracelet, bed and alarms, visiting hours, pain management, procedures, bathroom and other care routines, personal items, smoking policy, room service/diet, and visiting hours. Information on how to activate the Rapid Response Team has been discussed. Patient/Family are encouraged to report perceived risks to care and to ask questions if they do not understand what they are told or what they should do.
--- NOTE | 2021-06-26 20:18 | PM.IMHP ---
H&P: HPI History of Present Illness Date/Time: 06/26/21 20:18 Chief Complaint: Nausea and vomiting. Narrative: This is a 71-year-old female with past medical history significant for insulin-dependent diabetes mellitus, chronic back pain, hypertension, hypothyroidism, restless leg syndrome, fibromyalgia, hyperlipidemia, ovarian cancer. Patient presents to the emergency room due to nausea vomiting, abdominal pain, abnormal and high values of blood sugar. At the time of my visit patient was altered on and had very later interaction answer questions with yes or no. Preliminary workup was significant for a blood sugar of 600, potassium of 6.3. Bicarb was less than 5, creatinine of 1.6, elevated anion gap, WBC was 15,000. Patient was started on insulin drip and is been admitted to intensive care unit. Review of Systems Review of Systems: ROS unobtainable: Yes unobtainable due to mental status (Obtunded) [facility] Past Medical History Medical History Back pain Chronic anemia Depression Diabetic peripheral neuropathy Fibromyalgia Frequent falls Hyperlipidemia Hypertension Hypothyroidism Memory change On Aricept Ovarian cancer At the age of 33, status post hysterectomy. Patient states that half an ovary was left during surgery. She required no further treatment. Pneumonia due to COVID-19 virus (~09/2020) Proteinuria due to type 2 diabetes mellitus Restless leg syndrome Shingles Type 2 diabetes mellitus Hemoglobin A1c was > 14% 04/09/2021 C-peptide 0.63. Surgical History Surgical History History of tonsillectomy History of total hysterectomy with bilateral salpingo-oophorectomy (BSO) History of tubal ligation Family History Family History Grandparent Family history of premature coronary heart disease, Onset Age: 64 Father Family history of respiratory disorder, Onset Age: 87 Family history of cardiovascular disease Patient's father is Family history of Alzheimer's disease Cerebrovascular accident Mother Family history of primary malignant neoplasm of liver, Onset Age: 64 Family history of malignant neoplasm Patient's mother is , Onset Age: 64 Family history of malignant neoplasm of breast in first degree relative Sibling Heart attack Sibling Heart attack Social History Social History Social History: The patient is . She lives in her own home in [place], [place]. She does not work. She has 2 daughters, and designates her daughter Jose Posey, as her surrogate decision maker. She wishes to be a do not resuscitate. She is a lifelong nonsmoker. She drinks perhaps 4-12 alcoholic beverages a week. No drug use. Smoking status: Never smoker Alcohol intake: never Drinks per week: 4 Substance use: never Substance use type: does not use Other substance usage details: denies Sexual Orientation (if Verbalized by the Patient): Straight or Heterosexual Spiritual care concerns: No Meds Home Medications and Allergies Home Medications Medication Instructions Recorded Confirmed Type albuterol sulfate 90 mcg/actuation 2 puff INHALATION Q4H PRN #8.5 g 11/19/20 06/26/21 Rx aerosol inhaler gabapentin 300 mg capsule 300 mg PO TID #90 cap 03/23/21 06/26/21 Rx pramipexole 1.5 mg tablet 3 mg PO HS #180 tablet 03/23/21 06/26/21 Rx insulin aspart U-100 [Novolog 4 - 8 units SUBCUT TIDWM 30 Days 04/12/21 06/26/21 Rx U-100 Insulin aspart] #15 ml polyethylene glycol 3350 [Miralax] 17 g PO DAILY PRN 30 Days #30 ea 04/12/21 06/26/21 Rx naproxen [Naprosyn] 500 mg PO BID PRN #20 tablet 05/20/21 06/26/21 Rx Lantus U-100 Insulin 35 unit SUBCUT DAILY 06/13/21 06/26/21 History metformin 1,000 mg PO BID 06/13/21 06/26/21 History duloxetine [Cymbalta] 30 mg
[2021-06-26] MEDS: SODIUM CHLORIDE 0.9% IV 1,000 ML 150 ML IV CONT (20:30)
[2021-06-26 20:36] LABS: Glucose Point of Care 384 mg/dl (65-105)
[2021-06-26 22:00] VITALS: BP 109/55; PULSE 66; RESP 12; TEMP 36.9; O2SAT 99
[2021-06-26 22:44] LABS: Glucose Point of Care 164 mg/dl (65-105)
[2021-06-26 22:44] LABS: Glucose Point of Care 216 mg/dl (65-105)
[2021-06-26 22:57] LABS: Alanine Aminotransferase 13 U/L (4-35); Albumin Level 3.8 g/dL (3.5-5.1); Alkaline Phosphatase 101 U/L (38-126); Anion Gap 16 mmol/L (8-16); Aspartate Amino Transferase 18 U/L (14-36); Bilirubin,Total 0.5 mg/dL (0.2-1.3); Blood Urea Nitrogen 30 mg/dL (7-17); Calcium 10.4 mg/dL (8.4-10.2); Carbon Dioxide 13 mmol/L (22-30); Chloride 111 mmol/L (98-107); Estimated CRCL calculation 51 ml/min; Estimated Glomerular Filt Rate > 60; Glucose 150 mg/dL (65-110); Potassium 3.6 mmol/L (3.4-5.0); Sodium 140 mmol/L (137-145)
[2021-06-26] MEDS: KCL 20 MEQ/D5/0.45% SOD CHL 1,000 ML 150 ML IV CONT (23:01)
[2021-06-26 23:02] LABS: Add Urine Microscopic? YES; Appearance Urine Clear (Clear); Bacteria Urine Trace /hpf; Bilirubin Urine Negative (Negative); Blood Urine 2+ (Negative); Color Urine Straw (Yellow); Glucose Urine UA 3+ mg/dL (Negative); Ketones Urine 2+ mg/dL (Negative); Leukocyte Esterase Ur Trace LEU/UL (Negative); Mucus Urine Rare /lpf; Nitrate Urine Negative (Negative); Protein Urine 2+ mg/dL (Negative); Specific Grav Ur 1.018 (1.001-1.035); Squamous Epithelial Cell Urine Rare /hpf (Few); Urobilinogen Urine Negative mg/dL (<2.0)
[2021-06-26 23:02] LABS: Hemoglobin A1C > 14.0 % (<5.7)
[2021-06-26 23:21] VITALS: BMI 21.6
[2021-06-27] VITALS (11 sets, daily range): BP systolic 92–118; BP diastolic 44–77; PULSE 68–100; RESP 12–16; TEMP 36.8–36.9; O2SAT 94–100
[2021-06-27] MEDS: SODIUM CHLORIDE 0.9% IV 1,000 ML 999 ML IV CONT (00:17)
[2021-06-27 00:43] LABS: Glucose Point of Care 148 mg/dl (65-105)
[2021-06-27 00:43] LABS: Glucose Point of Care 105 mg/dl (65-105)
[2021-06-27 02:55] LABS: Glucose Point of Care 88 mg/dl (65-105)
[2021-06-27 02:55] LABS: Glucose Point of Care 73 mg/dl (65-105)
[2021-06-27 03:00] LABS: Anion Gap 9 mmol/L (8-16); Blood Urea Nitrogen 26 mg/dL (7-17); Calcium 9.9 mg/dL (8.4-10.2); Carbon Dioxide 16 mmol/L (22-30); Chloride 115 mmol/L (98-107); Estimated CRCL calculation 58 ml/min; Estimated Glomerular Filt Rate > 60; Glucose 84 mg/dL (65-110); Potassium 4.2 mmol/L (3.4-5.0); Sodium 140 mmol/L (137-145)
[2021-06-27 03:39] LABS: Glucose Point of Care 109 mg/dl (65-105)
[2021-06-27 04:28] LABS: Glucose Point of Care 142 mg/dl (65-105)
[2021-06-27 06:30] LABS: Glucose Point of Care 119 mg/dl (65-105)
[2021-06-27] MEDS: HEPARIN SODIUM 5,000 UNITS/ML VIAL 5000 UNITS SUB-Q ×3 (06:41→20:51)
[2021-06-27 06:47] LABS: Glucose Point of Care 94 mg/dl (65-105)
[2021-06-27 07:16] LABS: Anion Gap 8 mmol/L (8-16); Blood Urea Nitrogen 25 mg/dL (7-17); Calcium 9.7 mg/dL (8.4-10.2); Carbon Dioxide 17 mmol/L (22-30); Chloride 114 mmol/L (98-107); Estimated CRCL calculation 67 ml/min; Estimated Glomerular Filt Rate > 60; Glucose 106 mg/dL (65-110); Potassium 3.4 mmol/L (3.4-5.0); Sodium 139 mmol/L (137-145)
[2021-06-27 07:41] LABS: Glucose Point of Care 108 mg/dl (65-105)
--- NOTE | 2021-06-27 08:29 | WPDCNINT ---
Assessment and Plan Assessment and plan (1) DKA (diabetic ketoacidosis): Code(s): E11.10 - Type 2 diabetes mellitus with ketoacidosis without coma Status: Acute Assessment and Plan: likely secondary to noncompliance as patient admits to not taking with meal insulin during the day or sliding scale. She also does not monitor her blood sugars at home. She does claim to take her Lantus at night. She has been admitted at least 6 times in last few months DKA. Her anion gap had this morning has closed I will transition her to subcutaneous Lantus and sliding scale change IV fluids resume metformin advance diet consult critical care transport nurse and ict educator (2) JAMILA (acute kidney injury): Code(s): N17.9 - Acute kidney failure, unspecified Status: Acute Assessment and Plan: secondary to dehydration hypovolemia resolved now and creatinine is down to 0.6 continue IV fluids monitor urine output electrolytes and creatinine (3) Hypokalemia: Code(s): E87.6 - Hypokalemia Status: Acute Assessment and Plan: patient was hyperkalemic on presentation but after treatment with IV fluids and insulin patient is now hypokalemic replacement ordered (4) Elevated lipase: Code(s): R74.8 - Abnormal levels of other serum enzymes Status: Acute Assessment and Plan: patient does have elevated lipase which could be secondary to nausea vomiting. Her abdominal tenderness is diffuse and is likely from DKA her LFTs including bilirubin are normal I will check triglyceride level patient denies any nausea vomiting at this time and wants to eat food hence I will advance diet as tolerated monitor lipase level she had abdomen CT done 2 weeks ago which was negative except fecal impaction (5) Constipation: Code(s): K59.00 - Constipation, unspecified Status: Acute Assessment and Plan: with history of impaction on CT done 2 weeks ago KUB MiraLax, Dulcolax may need enema (6) Depression: Code(s): F32.A - Depression, unspecified Status: Acute Assessment and Plan: continue citalopram Additional Plan DVT prophylaxis - heparin Code Status - Full Code [place] [facility] Consult Note Consult date: 06/27/21 HPI: Karly Leslie is a 71 year old female with past medical history of poorly-controlled diabetes, frequent admissions for DKA, medical noncompliance, hypertension, chronic back pain, hypothyroidism, restless leg syndrome, fibromyalgia, hyperlipidemia, ovarian cancer who presented to the ER via EMS yesterday due to abdominal pain. Patient is a poor historian and states that abdominal pain was 8/10, achy, intermittent, no radiation, no aggravating or relieving factor. Yesterday on presentation she also reported nausea vomiting but to me she denied it. Patient denies fever, chest pain, shortness of breath, cough, diarrhea, headache or constipation. she admits to not taking her insulin with meals during the day also admits to not checking her sugars. She does claim that she takes her Lantus at night regularly. She lives with her daughter. Patient has had 6 hospitalizations at this facility for DKA since April of 2019 and is been hospitalized at other facilities as well for DKA. The patient's last hemoglobin A1c March 2021 was greater than 14. she was evaluated with depression last time by psychiatry and was started on Cymbalta. She denies any suicidal homicidal ideation. She lives with her daughter but states that she manages her medications by herself. Review system was positive feeling lousy, weak tired and Constipation. all the systems were reviewed and were negative. In ER patient was found to be in DKA and was given IV fluid bolus and started on IV insulin infusion and IV fluids. She was admitted to ICU for further evaluation management. At this time patient states abdominal pain is better and she is having only 4/1
[2021-06-27 08:30] LABS: Lipase 660 U/L (23-300)
[2021-06-27] MEDS: INSULIN GLARGINE (*BKC) 100 UNITS/ML 25 UNITS SUB-Q (08:32)
[2021-06-27] MEDS: metFORMIN HCL 500 MG TABLET PO ×2 (08:34→16:52)
[2021-06-27] MEDS: DULoxetine HCL 30 MG CAPSULE.DR PO (08:34)
[2021-06-27] MEDS: GABAPENTIN 300 MG CAPSULE PO ×3 (08:34→20:51)
[2021-06-27] MEDS: POTASSIUM CHLORIDE 20 MEQ PACKET (FOR LIQUID) 40 MEQ PO (08:36)
[2021-06-27] MEDS: KCL 20 MEQ/0.45% NS 1,000 ML 100 ML IV CONT ×2 (08:37→20:48)
[2021-06-27 08:47] LABS: Glucose Point of Care 100 mg/dl (65-105)
[2021-06-27 09:36] LABS: Triglycerides 297 mg/dL (<150)
[2021-06-27 11:29] LABS: Glucose Point of Care 160 mg/dl (65-105)
[2021-06-27 16:47] LABS: Glucose Point of Care 189 mg/dl (65-105)
--- NOTE | 2021-06-27 17:56 | ADMGEN ---
This patient, Karly Leslie, was admitted to [facility] Surg Room 315-01 at 1720. Patient/family oriented to hospital policies and general routines including ID bracelet, bed and alarms, visiting hours, pain management, procedures, bathroom and other care routines, personal items, smoking policy, room service/diet, and visiting hours. Information on how to activate the Rapid Response Team has been discussed. Patient/Family are encouraged to report perceived risks to care and to ask questions if they do not understand what they are told or what they should do.
[2021-06-27] MEDS: SODIUM CHLORIDE 0.9% IV 500 ML IV CONT (18:31)
[2021-06-27 20:33] LABS: Glucose Point of Care 177 mg/dl (65-105)
[2021-06-27] MEDS: PRAMIPEXOLE 1 MG TABLET 3 MG PO (20:51)
[2021-06-28] VITALS (9 sets, daily range): BP systolic 114–129; BP diastolic 66–72; PULSE 71–94; RESP 18; TEMP 36.5–37; O2SAT 97–100
[2021-06-28] MEDS: GABAPENTIN 300 MG CAPSULE PO ×3 (05:51→21:23)
[2021-06-28 06:18] LABS: Hematocrit 33.5 % (37.0-47.0); Hemoglobin 10.6 g/dL (12.0-15.0); Mean Corpuscular HGB Conc 31.6 g/dl (32-36); Mean Corpuscular Hemoglobin 31.7 pg (26-34); Mean Corpuscular Volume 100.3 fl (80-100); Mean Platelet Volume 9.1 fl (7.4-10.4); Platelet Count Result 200 k/mm3 (150-375); Red Blood Count 3.34 M/mm3 (4.2-5.4); White Blood Count 4.9 K/mm3 (4.5-10.0)
[2021-06-28 06:36] LABS: Alanine Aminotransferase 11 U/L (4-35); Albumin Level 2.6 g/dL (3.5-5.1); Alkaline Phosphatase 72 U/L (38-126); Anion Gap 1 mmol/L (8-16); Aspartate Amino Transferase 24 U/L (14-36); Bilirubin,Total 0.4 mg/dL (0.2-1.3); Blood Urea Nitrogen 10 mg/dL (7-17); Calcium 9.2 mg/dL (8.4-10.2); Carbon Dioxide 20 mmol/L (22-30); Chloride 110 mmol/L (98-107); Estimated CRCL calculation 96 ml/min; Estimated Glomerular Filt Rate > 60; Glucose 49 mg/dL (65-110); Magnesium 1.9 mg/dL (1.6-2.3); Potassium 3.5 mmol/L (3.4-5.0); Sodium 131 mmol/L (137-145)
[2021-06-28] MEDS: GLUCOSE ORAL GEL 15 GM OF GLUCSE IN 37.5 GM TUBE PO ×2 (06:39→07:00)
[2021-06-28] MEDS: HEPARIN SODIUM 5,000 UNITS/ML VIAL 5000 UNITS SUB-Q ×3 (06:47→21:23)
[2021-06-28 06:59] LABS: Glucose Point of Care 59 mg/dl (65-105)
[2021-06-28 07:25] LABS: Glucose Point of Care 66 mg/dl (65-105)
[2021-06-28] MEDS: INSULIN GLARGINE (*BKC) 100 UNITS/ML 20 UNITS SUB-Q (08:33)
[2021-06-28] MEDS: DULoxetine HCL 30 MG CAPSULE.DR PO (08:34)
[2021-06-28] MEDS: metFORMIN HCL 500 MG TABLET PO ×2 (08:34→16:52)
[2021-06-28 08:44] LABS: Glucose Point of Care 172 mg/dl (65-105)
[2021-06-28 11:26] LABS: Glucose Point of Care 393 mg/dl (65-105)
[2021-06-28] MEDS: INSULIN ASPART (*BKC) 100 UNITS/ML SUB-Q ×3 (12:02→16:51)
--- NOTE | 2021-06-28 14:32 | PM.IMPN ---
Progress Note: A&P Assessment and Plan (1) DKA (diabetic ketoacidosis): Code(s): E11.10 - Type 2 diabetes mellitus with ketoacidosis without coma Status: Acute Assessment and Plan: Patient presented with nausea and vomiting and found to have DKA most likely secondary to noncompliance. Glucose was 643 with serum bicarb <5 and AG of at least 30. Patient admits to not taking her mealtime insulin during the day or sliding scale. Patient was started IV fluids and insulin drip. DKA protocol was started. She was admitted to ICU. Anion gap closed. She was transitioned to Lantus. DKA resolved. She has been transferred to the medical floor. She has been admitted for DKA multiple times due to noncompliance. (2) Type 2 diabetes mellitus: Qualifiers: Diabetes mellitus complication status: without complication Diabetes mellitus group home insulin use: without group home use Qualified Code(s): E11.9 - Type 2 diabetes mellitus without complications Code(s): E11.9 - Type 2 diabetes mellitus without complications Status: Acute Assessment and Plan: Hemoglobin A1c is 14. She admits to not taking her mealtime insulin during the day because she does not eat. She does take the Lantus 35 units at night. Trulicity and metformin listed but states she does not take these. She was admitted for DKA and this has resolved. She does state that she has been 'gagging;' with food. Continue to monitor with Accu-Cheks covering with sliding scale protocol. Continue hypoglycemia protocol. visual educator and dietitian has been consulted. Metformin has been resumed. She still has a mild metabolic acidosis but will monitor this. Continue diabetic diet. Check bedside swallow evaluation. (3) JAMILA (acute kidney injury): Code(s): N17.9 - Acute kidney failure, unspecified Status: Acute Assessment and Plan: Creatinine 1.6 on admission which is well above her baseline. With IV fluids and resolution of the DKA, her creatinine has normalized. Continue to monitor. Overall JAMILA has resolved. (4) Hyperkalemia: Code(s): E87.5 - Hyperkalemia Status: Acute Assessment and Plan: Patient's potassium was 6.3 on admission[address] She had ST T wave abnormalities in anterior lateral leads but no acute peaked T-waves. With treatment of the DKA, the hyperkalemia has resolved. (5) Elevated lipase: Code(s): R74.8 - Abnormal levels of other serum enzymes Status: Acute Assessment and Plan: Patient does have elevated lipase to 329 which could be secondary to nausea and vomiting. She does have epigastric and right-sided abdominal pain. LFTs are normal but repeat lipase is now 660. Triglyceride levels 297. Will check CT abdomen pelvis if her lipase continues to climb. Add Pepcid for the epigastric pain. (6) Constipation: Code(s): K59.00 - Constipation, unspecified Status: Acute Assessment and Plan: Patient has a hx of mild fecal impaction [address] abdomen. KUB however showing nml bowel gas pattern and no obstruction or ileus. Will schedule MiraLax. (7) Depression: Code(s): F32.A - Depression, unspecified Status: Acute Assessment and Plan: Mood stable. Continue citalopram (8) DVT prophylaxis: Code(s): Z29.9 - Encounter for prophylactic measures, unspecified Status: Acute Assessment and Plan: Heparin Subjective Date/time seen: 06/28/21 14:32 Interval history: 71yo female with DM here for nausea and vomiting and found to be in DKA. Assuming care. Chart reviewed. Slept well last night. Takes 35U Lantus at night consistently at home. Does not do the Novolog at meal times because 'I don't eat during the day'. She complains of restless leg symptoms. She states she does not take any other diabetic medications. She has been 'gagging' on food at home causing nausea and vomiting. She did have low g
[2021-06-28 16:16] LABS: Glucose Point of Care 302 mg/dl (65-105)
[2021-06-28] MEDS: PRAMIPEXOLE 1 MG TABLET 3 MG PO (21:23)
[2021-06-28] MEDS: FAMOTIDINE 20 MG TABLET PO (21:23)
[2021-06-28 21:45] LABS: Glucose Point of Care 177 mg/dl (65-105)
[2021-06-29] VITALS (8 sets, daily range): BP systolic 109–121; BP diastolic 72–77; PULSE 64–84; RESP 16–18; TEMP 36.3–37; O2SAT 97–100
[2021-06-29] MEDS: HEPARIN SODIUM 5,000 UNITS/ML VIAL 5000 UNITS SUB-Q ×2 (05:22→14:30)
[2021-06-29] MEDS: GABAPENTIN 300 MG CAPSULE PO ×2 (05:22→14:30)
[2021-06-29 06:10] LABS: Hematocrit 36.3 % (37.0-47.0); Mean Corpuscular HGB Conc 33.1 g/dl (32-36); Mean Corpuscular Hemoglobin 31.1 pg (26-34); Mean Platelet Volume 9.2 fl (7.4-10.4); Platelet Count Result 176 k/mm3 (150-375); Red Blood Count 3.86 M/mm3 (4.2-5.4); Red Cell Distribution Width 14.2 % (11.5-14.5); White Blood Count 4.1 K/mm3 (4.5-10.0)
[2021-06-29 06:27] LABS: Alanine Aminotransferase 13 U/L (4-35); Albumin Level 2.7 g/dL (3.5-5.1); Alkaline Phosphatase 88 U/L (38-126); Anion Gap 1 mmol/L (8-16); Aspartate Amino Transferase 25 U/L (14-36); Bilirubin,Total 0.3 mg/dL (0.2-1.3); Blood Urea Nitrogen 6 mg/dL (7-17); Calcium 9.4 mg/dL (8.4-10.2); Carbon Dioxide 27 mmol/L (22-30); Chloride 106 mmol/L (98-107); Estimated CRCL calculation 79 ml/min; Estimated Glomerular Filt Rate > 60; Glucose 146 mg/dL (65-110); Lipase 217 U/L (23-300); Magnesium 1.9 mg/dL (1.6-2.3); Phosphorus 1.5 mg/dL (2.5-4.5); Potassium 3.7 mmol/L (3.4-5.0); Sodium 134 mmol/L (137-145)
[2021-06-29 08:23] LABS: Glucose Point of Care 145 mg/dl (65-105)
--- NOTE | 2021-06-29 09:34 | PCSTNOTE ---
Please refer to the Bedside Swallow Evaluation in the EMR. Please note, silent aspiration cannot be ruled out at bedside.
[2021-06-29 11:53] LABS: Glucose Point of Care 370 mg/dl (65-105)
[2021-06-29] MEDS: FAMOTIDINE 20 MG TABLET PO (12:33)
[2021-06-29] MEDS: metFORMIN HCL 500 MG TABLET PO (12:33)
[2021-06-29] MEDS: DULoxetine HCL 30 MG CAPSULE.DR PO (12:33)
[2021-06-29] MEDS: INSULIN GLARGINE (*BKC) 100 UNITS/ML 20 UNITS SUB-Q (12:34)
[2021-06-29] MEDS: POTASSIUM/PHOSPHORUS/SODIUM 1.5 GM PACKET 1 PACKET PO (12:34)
[2021-06-29] MEDS: INSULIN ASPART (*BKC) 100 UNITS/ML SUB-Q ×2 (12:34→12:35)
--- NOTE | 2021-06-29 14:19 | PCSTNOTE ---
Please refer to the Modified Barium Swallow Evaluation in the EMR.
--- NOTE | 2021-06-29 15:04 | PM.DS ---
DS: Admitting Diagnosis Discharge Date 06/29/21 Admitting Diagnosis Nausea and vomiting DS: Discharge Diagnosis Discharge Diagnosis (1) DKA (diabetic ketoacidosis): Code(s): E11.10 - Type 2 diabetes mellitus with ketoacidosis without coma Status: Acute Assessment and Plan: Patient presented with nausea and vomiting and found to have DKA most likely secondary to noncompliance. She has been admitted for DKA multiple times due to noncompliance. Glucose was 643 with serum bicarb <5 and AG of at least 30. Patient admits to not taking her mealtime insulin during the day or sliding scale. Patient was started IV fluids and insulin drip. DKA protocol was started. She was admitted to ICU. Anion gap closed. She was transitioned to Lantus. DKA resolved. She was educated about the benfits of medication compliance. (2) Type 2 diabetes mellitus: Qualifiers: Diabetes mellitus complication status: without complication Diabetes mellitus snf insulin use: without long wall shear operator use Qualified Code(s): E11.9 - Type 2 diabetes mellitus without complications Code(s): E11.9 - Type 2 diabetes mellitus without complications Status: Acute Assessment and Plan: Hemoglobin A1c is 14. She admits to not taking her mealtime insulin during the day because she does not eat. She does take the Lantus 35 units at night. Trulicity and metformin listed but states she does not take these. She was admitted for DKA and this has resolved. She does state that she has been 'gagging' with food but Modified barium swallow study was okay. We monitored with Accu-Cheks covering with sliding scale protocol. We continued hypoglycemia protocol. nurses educator and dietitian were consulted. Metformin was resumed. Glucose became better controlled. (3) JAMILA (acute kidney injury): Code(s): N17.9 - Acute kidney failure, unspecified Status: Acute Assessment and Plan: Creatinine 1.6 on admission which is well above her baseline. With IV fluids and resolution of the DKA, her creatinine has normalized. (4) Hyperkalemia: Code(s): E87.5 - Hyperkalemia Status: Acute Assessment and Plan: Patient's potassium was 6.3 on admission[address] She had ST T wave abnormalities in anterior lateral leads but no acute peaked T-waves. With treatment of the DKA, the hyperkalemia resolved. (5) Elevated lipase: Code(s): R74.8 - Abnormal levels of other serum enzymes Status: Acute Assessment and Plan: Patient does have elevated lipase to 329 which could be secondary to nausea and vomiting. She does have epigastric and right-sided abdominal pain. LFTs were normal but repeat lipase was 660. Triglyceride levels 297. We added Pepcid for the epigastric pain. Repeat lipase normalized. She is eating normally now. (6) Constipation: Code(s): K59.00 - Constipation, unspecified Status: Acute Assessment and Plan: Patient has a hx of mild fecal impaction [address] abdomen. KUB however showing nml bowel gas pattern and no obstruction or ileus. We scheduled MiraLax. (7) Depression: Code(s): F32.A - Depression, unspecified Status: Acute Assessment and Plan: Mood was stable. We continued citalopram (8) Non-compliance: Code(s): Z91.19 - Patient's noncompliance with other medical treatment and regimen Status: Acute Assessment and Plan: She was educated about the benefits of medication compliance. She now admits that she no longer has a primary care doctor most likely will be running out of her medicines soon. She does confirm that she has appropriate amount of medications at this time including insulin. Case management did provide a list of primary care doctors accepting new patients. DS: Summary Hospital Course Reason for hospitalization: 71yo female with DM here for nausea and vomiting and found to be in DKA.
[2021-06-29 16:47] LABS: Glucose Point of Care 261 mg/dl (65-105)
== END 2021-06-29 16:55 | disposition home or self-care (01) | DRG 638 ==
LOC: ANHED 17:57 → ANHICU 19:36 → ANH3MEDSUR 06-28 13:31 → ANHICU 06-30 10:50
PROVIDERS: Internal Medicine; Admitting Provider Internal Medicine; Emergency Provider Emergency Medicine; PCP Nurse Practitioner Family; Visit Provider Internal Medicine
DX: E11.10 Type 2 diabetes mellitus with ketoacidosis without coma (principal); N17.9 Acute kidney failure, unspecified; E87.5 Hyperkalemia; K59.00 Constipation, unspecified; F32.A Depression, unspecified; E86.0 Dehydration; G25.81 Restless legs syndrome; M79.7 Fibromyalgia; D72.829 Elevated white blood cell count, unspecified; I10 Essential (primary) hypertension; Z91.19 Patient's noncompliance with other medical treatment and regimen; E78.5 Hyperlipidemia, unspecified; E11.42 Type 2 diabetes mellitus with diabetic polyneuropathy; E03.9 Hypothyroidism, unspecified; D64.9 Anemia, unspecified; Z85.43 Personal history of malignant neoplasm of ovary; Z86.16 Personal history of COVID-19; Z90.710 Acquired absence of both cervix and uterus; Z90.722 Acquired absence of ovaries, bilateral
CPT/HCPCS: 36415; 36600; 74018; 80048; 80053; 81001; 82010; 82375; 82805; 82948; 83036; 83050; 83690; 83735; 84100; 84478; 85025; 85027; 92610; 92611; 93005; 96361; 96374; 96375; 99285; A9270; J1644; J1815; J2405; J3480; J7030; J7040

== ENCOUNTER 2021-08-26 06:45 | Emergency (ER) | payer MEDICARE, OTHER, SELFPAY ==
[2021-08-26 06:50] VITALS: BP 129/79; PULSE 80; RESP 20; TEMP 36; O2SAT 99
[2021-08-26] MEDS: KETOROLAC 30 MG/ML VIAL (*BKC) IM (07:49)
--- NOTE | 2021-08-26 08:01 | ED.LOWEXIN ---
HPI - Extremity Injury (Lower) General Chief Complaint: Extremity Injury, Lower Stated Complaint: spasms in R lower leg, pins and needles feeling Time Seen by Provider: 08/26/21 07:22 Source: patient Mode of arrival: ambulatory Limitations: no limitations History of Present Illness HPI Narrative: This is a 71-year-old female that presents with some sensation of pins and needles in her right lower leg patient has a history of peripheral neuropathy history of diabetes there is no known injuries the patient denies having any pain just a sensation of pins and needles that started earlier this morning. Currently no fever chills no back pain no known injury no abdominal pain no dysuria. No chest pain or shortness of breath Place: home Severity: mild Relieving factors: nothing Exacerbating factors: nothing Related Data Home Medications Medication Instructions Recorded Confirmed insulin aspart U-100 100 unit/mL 8 unit subcut TID 06/30/21 07/05/21 (3 mL) subcutaneous pen (Novolog Flexpen U-100 Insulin aspart) insulin glargine 100 unit/mL (3 35 unit subcut QPM 06/30/21 07/05/21 mL) subcutaneous pen (Lantus Solostar U-100 Insulin) Allergies Allergy/AdvReac Type Severity Reaction Status Date / Time banana Allergy Severe SEVERE Verified 07/05/21 16:22 HIVES acetaminophen [From Tylenol] AdvReac Intermediate Nausea and Verified 07/05/21 16:22 Vomiting aspirin AdvReac Intermediate Nausea and Verified 07/05/21 16:22 Vomiting fluoxetine [From Prozac] AdvReac Hallucinati Verified 07/05/21 16:22 ng Review of Systems Review of Systems: All systems reviewed & are unremarkable except as noted in HPI and below PMFSH Past Medical History Medical History Back pain Depression Diabetic peripheral neuropathy Fibromyalgia Hypothyroidism Memory change Ovarian cancer At the age of 33, status post hysterectomy. Patient states that half an ovary was left during surgery. She required no further treatment. Pneumonia due to COVID-19 virus (~09/2020) Restless leg syndrome Shingles Type 2 diabetes mellitus Hemoglobin A1c was > 14% 04/09/2021 C-peptide 0.63. Surgical History Surgical History History of tonsillectomy (~1970) History of total hysterectomy with bilateral salpingo-oophorectomy (BSO) (~1983) History of tubal ligation (~1983) Family History Family History Grandparent Family history of premature coronary heart disease, Onset Age: 64 Father Family history of respiratory disorder, Onset Age: 87 Family history of cardiovascular disease Patient's father is Family history of Alzheimer's disease Cerebrovascular accident Mother Family history of primary malignant neoplasm of liver, Onset Age: 64 Family history of malignant neoplasm Patient's mother is , Onset Age: 64 Family history of malignant neoplasm of breast in first degree relative Sibling Heart attack Sibling Heart attack Social History Social History Social History: The patient is . She lives in her own home in [place], [place]. She does not work. She has 2 daughters, and designates her daughter Jose Posey, as her surrogate decision maker. She wishes to be a do not resuscitate. She is a lifelong nonsmoker. She drinks perhaps 4-12 alcoholic beverages a week. No drug use. Smoking status: Never smoker Alcohol intake: never Drinks per week: 4 Substance use: never Substance use type: does not use Other substance usage details: denies Sexual Orientation (if Verbalized by the Patient): Straight or Heterosexual Spiritual care concerns: No Exam Const: General: healthy appearing and no acute distress Nutritional Appearance: well nourished HEN
[2021-08-26 08:23] VITALS: BP 130/65; PULSE 78; RESP 16; TEMP 36.8; O2SAT 98
== END 2021-08-26 08:32 | disposition home or self-care (01) ==
PROVIDERS: Emergency Provider Emergency Medicine
DX: E11.42 Type 2 diabetes mellitus with diabetic polyneuropathy (principal); E03.9 Hypothyroidism, unspecified
CPT/HCPCS: 96372; 99283; J1885

== ENCOUNTER 2021-08-30 02:24 | Inpatient (IN) | payer MEDICARE, OTHER, SELFPAY ==
[2021-08-30] VITALS (10 sets, daily range): BP systolic 81–122; BP diastolic 35–60; PULSE 75–95; RESP 16–22; TEMP 36.2–36.9; O2SAT 93–100; BMI 26.2
--- NOTE | ~2021-08-30 | US_ITS ---
EXAMINATION: US abdomen limited DATE: 09/02/2021 08:50 INDICATION: Abdominal pain TECHNIQUE: Multiple grayscale and Doppler ultrasound images of the abdomen were obtained. COMPARISON: 06/13/2021 FINDINGS: The head and body of the pancreas are normal. The pancreatic tail is obscured by bowel gas. The liver is normal with normal echogenicity and echotexture. No surface nodularity. Normal hepatope umberto flow in the main portal vein. The gallbladder is normal with no abnormal wall thickening, pericho lecystic fluid or stones. The normal common bile duct measures 3 mm. There was no sonographic Silva sign. IMPRESSION: 1. Normal sonographic study of the gallbladder. Reviewed, dictated and finalized at location B.
--- NOTE | ~2021-08-30 | XR_ITS ---
EXAMINATION: XR chest PICC line DATE: 08/31/2021 15:01 INDICATION: PICC line placement TECHNIQUE: frontal view of the chest was obtained. COMPARISON: Chest radiograph dated 06/13/2021 FINDINGS: Left upper extremity peripherally inserted central venous catheter (PICC) tip at the superior cavoat rial junction. Pulmonary vascular congestion with mild increased interstitial pattern in the left mid to lower and r ight lower lung zones. Mild linear discoid atelectasis/scarring at the left lung base. No pleural eff usion or pneumothorax. Heart size is normal. Prominent calcified right paratracheal lymph node consis tent with old granulomatous disease. IMPRESSION: 1. Pulmonary vascular congestion with mild increased interstitial pattern in the left mid to lower an d right lower lung zones with differential including mild pulmonary edema, bronchitis or early/atypic al pneumonia. Reviewed, dictated and finalized at location A. IMPRESSION: 1. Pulmonary vascular congestion with mild increased interstitial pattern in th e left mid to lower and right lower lung zones with differential including mild pulmonary edema, bronchitis or early/atypical pneumonia.
[2021-08-30 02:35] LABS: Glucose Point of Care 358 mg/dl (65-105)
[2021-08-30] MEDS: SODIUM CHLORIDE 0.9% IV 1,000 ML 999 ML IV CONT ×2 (03:36→09:39)
--- NOTE | 2021-08-30 03:40 | ED.GENADULT ---
HPI - General Adult General Chief complaint: Recheck/Abnormal Lab/Rx Stated complaint: elevated blood sugar Time Seen by Provider: 08/30/21 02:46 History of Present Illness HPI narrative: 71-year-old female presenting to the emergency department for evaluation of elevated blood sugars. Patient states over the last 2 days her blood sugars have been elevated. Patient states that her blood sugars typically run in the 300s but that they were running in the 500s over the last 2 days. Patient states that on Monday night she did take her Lantus. Patient states she did not take her 35 units Lantus on Monday. Upon arrival with blood department patient's blood sugar was 358. Patient's still complaining of nausea and is also complaining of her restless leg syndrome. Patient denies any associated chest pain or shortness of breath. Patient denies any associate abdominal pain Related Data Allergies Allergy/AdvReac Type Severity Reaction Status Date / Time banana Allergy Severe SEVERE Verified 08/30/21 02:30 HIVES acetaminophen [From Tylenol] AdvReac Intermediate Nausea and Verified 08/30/21 02:30 Vomiting aspirin AdvReac Intermediate Nausea and Verified 08/30/21 02:30 Vomiting fluoxetine [From Prozac] AdvReac Hallucinati Verified 08/30/21 02:30 ng Review of Systems Review of Systems: CONSTITUTIONAL: Generalized weakness EYES: Denies visual changes, redness, or discharge. ENT: Denies rhinorrhea, congestion, sore throat, or otalgia. CARDIOVASCULAR: Denies chest pain, palpitations, or edema. RESPIRATORY: Denies cough or dyspnea. GASTROINTESTINAL: Denies abdominal pain, nausea, vomiting, or diarrhea. GENITOURINARY: Denies dysuria or hematuria. SKIN: Denies rash or itching. MUSCULOSKELETAL: Denies back pain, joint pain, or myalgia. NEUROLOGIC: Denies headache, numbness, or weakness. [facility] Past Medical History Medical History Back pain Depression Diabetic peripheral neuropathy Fibromyalgia Hypothyroidism Memory change Ovarian cancer At the age of 33, status post hysterectomy. Patient states that half an ovary was left during surgery. She required no further treatment. Pneumonia due to COVID-19 virus (~09/2020) Restless leg syndrome Shingles Type 2 diabetes mellitus Hemoglobin A1c was > 14% 04/09/2021 C-peptide 0.63. Surgical History Surgical History History of tonsillectomy (~1970) History of total hysterectomy with bilateral salpingo-oophorectomy (BSO) (~1983) History of tubal ligation (~1983) Family History Family History Grandparent Family history of premature coronary heart disease, Onset Age: 64 Father Family history of respiratory disorder, Onset Age: 87 Family history of cardiovascular disease Patient's father is Family history of Alzheimer's disease Cerebrovascular accident Mother Family history of primary malignant neoplasm of liver, Onset Age: 64 Family history of malignant neoplasm Patient's mother is , Onset Age: 64 Family history of malignant neoplasm of breast in first degree relative Sibling Heart attack Sibling Heart attack Social History Social History Social History: The patient is . She lives in her own home in [place], [place]. She does not work. She has 2 daughters, and designates her daughter Jose Posey, as her surrogate decision maker. She wishes to be a do not resuscitate. She is a lifelong nonsmoker. She drinks perhaps 4-12 alcoholic beverages a week. No drug use. Smoking status: Never smoker Alcohol intake: never Drinks per week: 4 Substance use: never Substance use type: does not use Other substance usage details: denies Sexual Orientation (if Verbalized by the Patient): Straight or H
[2021-08-30 03:49] LABS: Basophils Absolute Auto 0.1 K/mm3 (0.0-0.1); Basophils Percent Auto 0.5 % (0.2-1.2); Eosinophils Percent Auto 0.1 % (0-4.4); Hematocrit 36.7 % (37.0-47.0); Hemoglobin 11.3 g/dL (12.0-15.0); Immature Granulocyte Absolute 0.05 K/mm3 (0.00-0.031); Immature Granulocyte Percent A 0.5 % (0-0.5); Lymphocytes Absolute Auto 1.75 K/mm3 (0.9-3.2); Lymphocytes Percent Auto 16.5 % (18.3-44.2); Mean Corpuscular HGB Conc 30.8 g/dl (32-36); Mean Corpuscular Hemoglobin 31.7 pg (26-34); Mean Corpuscular Volume 102.8 fl (80-100); Mean Platelet Volume 9.5 fl (7.4-10.4); Monocytes Percent Auto 9.1 % (2.6-8.5); Neutrophils Absolute Auto 7.8 K/mm3 (1.3-6.7); Neutrophils Percent Auto 73.3 % (45.5-73.1); Platelet Count Result 270 k/mm3 (150-375); Red Blood Count 3.57 M/mm3 (4.2-5.4); Red Cell Distribution Width 13.7 % (11.5-14.5); White Blood Count 10.6 K/mm3 (4.5-10.0)
[2021-08-30] MEDS: ONDANSETRON INJ 4 MG/2 ML VIAL IV PUSH ×2 (03:49→10:37)
--- NOTE | 2021-08-30 03:50 | PC.NURSE ---
per EDP john hold insulin until BMP results
[2021-08-30 03:59] LABS: Appearance Urine Clear (Clear); Bilirubin Urine 2+ (Negative); Blood Urine Trace-lysed (Negative); Color Urine Yellow (Yellow); Glucose Urine UA 2+ mg/dL (Negative); Ketones Urine 4+ mg/dL (Negative); Leukocyte Esterase Ur 1+ LEU/UL (Negative); Nitrate Urine Negative (Negative); Protein Urine 1+ mg/dL (Negative); Specific Grav Ur >= 1.030 (1.001-1.035); Urobilinogen Urine 0.2 mg/dL (<2.0); pH Urine 5.5 (5.0-9.0)
[2021-08-30 04:03] LABS: Alanine Aminotransferase 22 U/L (6-35); Albumin Level 3.4 g/dL (3.5-5.1); Alkaline Phosphatase 92 U/L (38-126); Anion Gap 19 mmol/L (8-16); Aspartate Amino Transferase 25 U/L (14-36); Bilirubin,Total 0.3 mg/dL (0.2-1.3); Blood Urea Nitrogen 19 mg/dL (7-17); Calcium 9.5 mg/dL (8.4-10.2); Carbon Dioxide 9 mmol/L (22-30); Chloride 106 mmol/L (98-107); Estimated CRCL calculation 61 ml/min; Estimated Glomerular Filt Rate > 60; Glucose 334 mg/dL (65-110); Potassium 4.9 mmol/L (3.4-5.0); Sodium 134 mmol/L (137-145)
[2021-08-30 04:10] LABS: Bacteria Urine Trace /hpf; Mucus Urine Rare /lpf; RBC Urine 21-50 /hpf (0-2); Squamous Epithelial Cell Urine Occasional /hpf (Few); WBC Urine 21-30 /hpf
[2021-08-30 04:16] LABS: Add Urine Microscopic? YES
[2021-08-30 04:33] LABS: Beta-Hydroxybutyrate/Acetoacetate 7.54 mmol/L (0.02-0.27)
[2021-08-30] MEDS: PRAMIPEXOLE 1 MG TABLET 3 MG PO ×2 (04:39→22:24)
[2021-08-30 05:46] LABS: SARS-CoV-2 RNA PCR Negative
[2021-08-30] MEDS: INSULIN HUMAN REGULAR (*BKC) 100 UNITS/ML IV PUSH (06:34)
[2021-08-30] MEDS: SODIUM CHLORIDE 0.9% IV 1,000 ML 125 ML IV CONT ×3 (06:36→22:24)
--- NOTE | 2021-08-30 06:39 | PC.NURSE ---
per EDP john okay to give insulin at this time.
[2021-08-30] MEDS: SODIUM CHLORIDE 0.9% IV 500 ML 999 ML IV CONT (07:09)
--- NOTE | 2021-08-30 07:21 | PC.NURSE ---
per EDP john morphine not given due to pt bp
[2021-08-30 08:49] LABS: Glucose Point of Care 279 mg/dl (65-105)
--- NOTE | 2021-08-30 10:20 | ADMGEN ---
This patient, Karly Leslie, was admitted to [facility] Surg Room 331-01. Patient/family oriented to hospital policies and general routines including ID bracelet, bed and alarms, visiting hours, pain management, procedures, bathroom and other care routines, personal items, smoking policy, room service/diet, and visiting hours. Information on how to activate the Rapid Response Team has been discussed. Patient/Family are encouraged to report perceived risks to care and to ask questions if they do not understand what they are told or what they should do.
[2021-08-30 11:38] LABS: Glucose Point of Care 374 mg/dl (65-105)
[2021-08-30] MEDS: INSULIN ASPART (*BKC) 100 UNITS/ML SUB-Q ×2 (12:31→16:56)
--- NOTE | 2021-08-30 13:23 | PM.IMHP ---
H&P: HPI History of Present Illness Date/Time: 08/30/21 13:23 Chief Complaint: 71-year-old female presenting to the emergency department for evaluation of elevated blood sugars.? Patient states over the last 2 days her blood sugars have been elevated.? Patient states that her blood sugars typically run in the 300s but that they were running in the 500s over the last 2 days.? Patient states that on Monday night she did take her Lantus.? Patient states she did not take her 35 units Lantus on Monday.? Upon arrival with blood department patient's blood sugar was 358.? Patient's still complaining of nausea and is also complaining of her restless leg syndrome.? Patient denies any associated chest pain or shortness of breath.? Patient denies any associate abdominal pain Review of Systems Review of Systems: 10 point ROS negative except as stated in HPI / Subjective PMFSH Past Medical History Medical History Back pain Depression Diabetic peripheral neuropathy Fibromyalgia Hypothyroidism Memory change Ovarian cancer At the age of 33, status post hysterectomy. Patient states that half an ovary was left during surgery. She required no further treatment. Pneumonia due to COVID-19 virus (~09/2020) Restless leg syndrome Shingles Type 2 diabetes mellitus Hemoglobin A1c was > 14% 04/09/2021 C-peptide 0.63. Surgical History Surgical History History of tonsillectomy (~1970) History of total hysterectomy with bilateral salpingo-oophorectomy (BSO) (~1983) History of tubal ligation (~1983) Family History Family History Grandparent Family history of premature coronary heart disease, Onset Age: 64 Father Family history of respiratory disorder, Onset Age: 87 Family history of cardiovascular disease Patient's father is Family history of Alzheimer's disease Cerebrovascular accident Mother Family history of primary malignant neoplasm of liver, Onset Age: 64 Family history of malignant neoplasm Patient's mother is , Onset Age: 64 Family history of malignant neoplasm of breast in first degree relative Sibling Heart attack Sibling Heart attack Social History Social History Social History: The patient is . She lives in her own home in [place], [place]. She does not work. She has 2 daughters, and designates her daughter Jose Posey, as her surrogate decision maker. She wishes to be a do not resuscitate. She is a lifelong nonsmoker. She drinks perhaps 4-12 alcoholic beverages a week. No drug use. Smoking status: Never smoker Alcohol intake: never Drinks per week: 4 Substance use: never Substance use type: does not use Other substance usage details: denies Sexual Orientation (if Verbalized by the Patient): Straight or Heterosexual Spiritual care concerns: No Meds Home Medications and Allergies Home Medications Medication Instructions Recorded Confirmed Type albuterol sulfate 90 mcg/actuation 2 puff inhalation Q4H PRN 11/19/20 08/30/21 Rx aerosol inhaler (Ventolin HFA) shortness of breath or wheezing #8.5 grams gabapentin 300 mg capsule 300 mg PO TID #90 caps 03/23/21 08/30/21 Rx pramipexole 1.5 mg tablet 3 mg PO HS #180 tabs 03/23/21 08/30/21 Rx polyethylene glycol 3350 17 gram 17 g PO DAILY PRN Constipation 30 04/12/21 08/30/21 Rx oral powder packet (Miralax) days #30 ea duloxetine 60 mg capsule,delayed 60 mg PO DAILY #30 caps 08/26/21 08/30/21 Rx release (Cymbalta) Allergies Allergy/AdvReac Type Severity Reaction Status Date / Time banana Allergy Severe SEVERE Verified 08/30/21 02:30 HIVES acetaminophen [From Tylenol] AdvReac Intermediate Nausea and Verified 08/30/21 02:30 Vomiting aspirin AdvReac Intermediate N
[2021-08-30 16:55] LABS: Glucose Point of Care 285 mg/dl (65-105)
[2021-08-30] MEDS: GABAPENTIN 300 MG CAPSULE PO (16:56)
--- NOTE | 2021-08-30 20:03 | PC.NURSE ---
Pt to bed transferred to 3rd med-surg room 331. Report called to SAMMY Malave at 2000.
--- NOTE | 2021-08-30 20:05 | PC.NURSE ---
Left message for pt's granddaughter, Karen [phone]. Attempting to notify of new room assignment.
[2021-08-30 20:38] LABS: Glucose Point of Care 147 mg/dl (65-105)
--- NOTE | 2021-08-30 20:58 | PC.NURSE ---
Transfer received from IMU per bed. Clarification requested to confidential status--per patient, ok to discuss medical information with Karen, patients granddaughter.
--- NOTE | 2021-08-30 20:59 | PC.NURSE ---
This patient, Karly Leslie, was transferred to [room 331] on 08/30/21 at 2059. Personal belongings sent with patient. Report given to [SAMMY Malave ]. Appropriate documentation sent with patient.
[2021-08-30] MEDS: INSULIN GLARGINE (*BKC) 100 UNITS/ML 25 UNITS SUB-Q (22:25)
[2021-08-31] VITALS (13 sets, daily range): BP systolic 93–155; BP diastolic 48–92; PULSE 73–131; RESP 11–18; TEMP 35.5–37.2; O2SAT 96–100
[2021-08-31] MEDS: ONDANSETRON INJ 4 MG/2 ML VIAL IV PUSH ×2 (00:07→03:57)
[2021-08-31] MEDS: MORPHINE SULFATE (*CRX) 4 MG/ML INJ 2 MG IV PUSH ×2 (03:57→08:39)
[2021-08-31 07:33] LABS: Hematocrit 41.5 % (37.0-47.0); Hemoglobin 12.4 g/dL (12.0-15.0); Mean Corpuscular HGB Conc 29.9 g/dl (32-36); Mean Corpuscular Hemoglobin 31.5 pg (26-34); Mean Corpuscular Volume 105.3 fl (80-100); Mean Platelet Volume 9.4 fl (7.4-10.4); Platelet Count Result 302 k/mm3 (150-375); Red Blood Count 3.94 M/mm3 (4.2-5.4); Red Cell Distribution Width 14.6 % (11.5-14.5); White Blood Count 14.9 K/mm3 (4.5-10.0)
[2021-08-31 07:48] LABS: Blood Urea Nitrogen 11 mg/dL (7-17); Calcium 9.4 mg/dL (8.4-10.2); Carbon Dioxide < 5 mmol/L (22-30); Chloride 115 mmol/L (98-107); Estimated CRCL calculation 62 ml/min; Estimated Glomerular Filt Rate > 60; Glucose 328 mg/dL (65-110); Potassium 4.4 mmol/L (3.4-5.0); Sodium 140 mmol/L (137-145)
[2021-08-31 08:09] LABS: Glucose Point of Care 342 mg/dl (65-105)
[2021-08-31] MEDS: INSULIN ASPART (*BKC) 100 UNITS/ML SUB-Q (08:42)
[2021-08-31 09:03] LABS: Lactic Acid Reflex 2.5 mmol/L (0.7-2.0)
[2021-08-31] MEDS: DULoxetine HCL 60 MG CAPSULE.DR PO (10:15)
[2021-08-31] MEDS: GABAPENTIN 300 MG CAPSULE PO (10:15)
[2021-08-31] MEDS: INSULIN HUMAN NPH (*BKC) 100 UNITS/ML 10 UNITS SUB-Q (10:15)
[2021-08-31 11:12] LABS: Glucose Point of Care 432 mg/dl (65-105)
[2021-08-31 11:20] LABS: Glucose Point of Care 390 mg/dl (65-105)
[2021-08-31] MEDS: SODIUM CHLORIDE 0.9% IV 1,000 ML 999 ML IV CONT ×2 (11:22→12:27)
[2021-08-31 11:30] LABS: Alveolar/Arterial O2 Gradient 10.5 mmHg; Base Excess ABG -27.5 mEq/l (+/-2.0); Fractional Inspired Oxygen 21 %; Oxygen Content ABG 18.1 %vol (16.0-22.0); Oxygen Saturation ABG 95.9 % (95.0-100.0); Oxyhemoglobin 96.4 % THb (90.0-100.0); PO2 ABG 122.5 mmHg (80.0-100.0); PO2 FiO2 Ratio Arterial Blood 5.83 %; Total Hemoglobin 13.2 g/dL (12.0-18.0)
[2021-08-31 11:31] LABS: Device ROOM AIR; Modified Allen's Test Pass; Site Drawn RIGHT BRACHIAL; pH ABG 6.949 (7.350-7.450)
[2021-08-31 11:49] LABS: Reflex Lactic Acid Yes or No Add Lactic
[2021-08-31] MEDS: SODIUM BICARBONATE 8.4% 50 MEQ/50 ML SYRINGE 100 MEQ IV PUSH (12:28)
--- NOTE | 2021-08-31 12:28 | PC.NURSE ---
This patient, Karly Leslie, was received from [ 331] on 08/31/21 at 1228. Patient/family oriented to unit policies and routines
--- NOTE | 2021-08-31 12:39 | PM.IMPN ---
Progress Note: A&P Assessment and Plan (1) DKA (diabetic ketoacidosis): Qualifiers: Diabetes mellitus complication detail: without coma Diabetes mellitus type: type 2 Qualified Code(s): E11.10 - Type 2 diabetes mellitus with ketoacidosis without coma Code(s): E11.10 - Type 2 diabetes mellitus with ketoacidosis without coma Status: Acute Assessment and Plan: Worsening acidotic state. PH 6.9. Medical noncompliance Will transferred ICU for IV insulin. IV bolus initiated on the floor for fluids (2) Acute UTI: Code(s): N39.0 - Urinary tract infection, site not specified Status: Acute Assessment and Plan: IV Rocephin (3) Depression: Code(s): F32.A - Depression, unspecified Status: Acute Assessment and Plan: Chronic (4) Restless leg syndrome: Code(s): G25.81 - Restless legs syndrome Status: Acute Assessment and Plan: Chronic (5) Hyperlipidemia: Qualifiers: Hyperlipidemia type: unspecified Qualified Code(s): E78.5 - Hyperlipidemia, unspecified Code(s): E78.5 - Hyperlipidemia, unspecified Status: Acute Assessment and Plan: Chronic (6) Non-compliance: Code(s): Z91.19 - Patient's noncompliance with other medical treatment and regimen Status: Acute Assessment and Plan: According to [facility] her pharmacy. Patient has not were filled her insulin since prior to May. (7) Nausea: Code(s): R11.0 - Nausea Status: Acute Assessment and Plan: P.r.n. medications. Likely secondary elevated blood sugars. Monitor Subjective Date/time seen: 08/31/21 12:39 Patient's low more sleepy this morning. ABG ordered patient is acidotic. Despite improvement of blood sugars yesterday after an evening her blood sugars are over 400 again today. Exam Narrative: General: alert and oriented Psych: appropriate mood nad affect Eyes: PERRLA Neck: Trachea midline, no new lesions Skin: no changes Lungs: CTA Cardiac: Normal S1,S2, no MGR ABD: soft, nd, nt, nbs Ext: no new lesions, no cce Vasc: Pulses intact Objective Data Vital Signs Vital Signs: Vital Signs - 24 hr 08/30/21 16:00 08/30/21 16:55 08/30/21 20:00 Temperature 98.0 F Pulse Rate 83 82 86 Respiratory Rate 18 Blood Pressure 111/55 L Pulse Oximetry 99 Oxygen Delivery 08/30/21 20:00 08/31/21 00:00 08/31/21 00:00 Temperature 98.5 F 99.0 F Pulse Rate 88 84 80 Respiratory Rate 18 16 Blood Pressure 103/57 L 108/50 L Pulse Oximetry 98 100 Oxygen Delivery 08/31/21 04:00 08/31/21 08:00 08/31/21 08:40 Temperature 97.4 F L Pulse Rate 83 92 Respiratory Rate 17 Blood Pressure 155/85 H Pulse Oximetry 100 96 Oxygen Delivery Room Air 08/31/21 08:00 Temperature Pulse Rate 120 H Respiratory Rate Blood Pressure Pulse Oximetry Oxygen Delivery Intake/Output Intake/Output: Intake & Output 08/28/21 08/29/21 08/30/21 08/31/21 23:59 23:59 23:59 23:59 Intake Total 3820.0 720 Output Total 2000 Balance 1820.0 720 Meds/Results Medications: Active Medications Generic Name Dose Route Start Last Admin Trade Name Freq PRN Reason Stop Dose Admin Albuterol 2 puff 08/30/21 13:22 Albuterol Sulfate (*Sp) Aerosol 1 Puff INHALATION Q4HRT PRN shortness of breath or wheezing Dextrose 12.5 gm 08/30/21 02:44 Dextrose 50% 25 Gm/50 Ml Syringe IV PUSH PRN PRN Hypoglycemia Protocol Duloxetine HCl 60 mg 08/31/21 09:00 08/31/21 10:15 Duloxetine Hcl 60 Mg Capsule.Dr PO 60 mg DAILY DANIEL Administration Gabapentin 300 mg 08/30/21 17:00 08/31/21 10:15 Gabapentin 300 Mg Capsule PO 300 mg TID DANIEL Administration Glucagon 1 mg 08/30/21 02:44 Glucagon For Inj 1 Mg Vial IM PRN PRN Hypoglycemia Protocol Glucose 15 gm 08/30/21 02:44 Glucose Oral Gel 15 Gm Of Glucse In 37.5 Gm Tube PO PRN PRN
--- NOTE | 2021-08-31 12:41 | PC.NURSE ---
This patient, Karly Leslie, was transferred to ICU12 on 08/31/21 at 1215 . Personal belongings sent with patient. Report given to Justine. Appropriate documentation sent with patient.
--- NOTE | 2021-08-31 12:54 | WPDCNINT ---
Assessment and Plan Assessment and plan (1) DKA (diabetic ketoacidosis): Qualifiers: Diabetes mellitus complication detail: without coma Diabetes mellitus type: type 2 Qualified Code(s): E11.10 - Type 2 diabetes mellitus with ketoacidosis without coma Code(s): E11.10 - Type 2 diabetes mellitus with ketoacidosis without coma Status: Acute Assessment and Plan: Patient presented with significant metabolic acidosis, hyperglycemia positive beta hydroxybutyrate -diagnosed with DKA, patient was given 2 L IV fluids in the ICU improvement in the heart rate -inciting factor could be UTI, patient also noncompliant with insulin. -insulin per DKA protocol -continue IV fluids per DKA protocol -will have dietitian a and nurses educator evaluated the patient -last hemoglobin A1c on 06/26/2021 was > 14 -repeat hemoglobin A1c is pending (2) Acute UTI: Code(s): N39.0 - Urinary tract infection, site not specified Status: Acute Assessment and Plan: Urinalysis was positive for UTI, patient on ceftriaxone -urine cultures have been obtained and pending Plan Continue insulin infusion per DKA protocol May give additional IV fluid bolus Additional Plan Code status: Full code Critical care time spent: 42 minutes This dictation may have been done utilizing a voice recognition system. Attempts have been made to correct errors. However, there may be uncorrected grammatical, spelling, and recognition errors present. Due to a high probability of clinically significant, life threatening deterioration, the patient required my highest level of preparedness to intervene emergently and I personally spent this critical care time directly and personally managing the patient. This critical care time included obtaining a history; examining the patient; pulse oximetry; ordering and review of studies; arranging urgent treatment with development of a management plan; evaluation of patient's response to treatment; frequent reassessment; and discussions with other providers. It was exclusive of separately billable procedures and treating other patients and teaching time. Please see Assessment and Plan section and the rest of the note for further information on patient assessment and treatment [employer] Consult Note Consult date: 08/31/21 Reason for consult: Diabetic ketoacidosis with hyperglycemia, elevated anion gap and elevated beta hydroxybutyrate altered mental status, UTI, leukocytosis HPI: Karly Leslie is a 71 year old female with significant past medical history of depression, diabetes type 2, diabetic peripheral neuropathy, fibromyalgia, hypothyroidism, history of ovarian cancer at age 33, COVID-19 in September 2019 presented the ED on 08/30/2021 with complains of pins and needles in the lower extremity. Patient was found to have elevated blood sugars in the ER. According the records patient has been having elevated blood sugars for the last 2 days prior to admission. Typically runs in the 300s with a 1 running in the 500s in the last 2 days ago by the hospitalist note. Patient has been noncompliant with her long-acting insulin. Patient was admitted to the medical floor which she got her Lantus and sliding scale insulin and today on 08/31/2021 patient had altered mental status, tachypneic, tachycardic, CO2 levels of < 5, anion gap could not be calculated because it was so high, elevated beta hydroxybutyrate, hyperglycemic. Patient was brought to the ICU, Shane 2 L of IV fluid bolus start her on insulin infusion per DKA protocol. ABGs showed a pH of 6.9, pCO2 of 14, PO2 of 122, HC03 of 3, O2 sats 95% this was on room air. Was given bicarb push. Patient seen and examined the ICU upon arrival, opens her eyes to name, answers yes or no denies any chest pain, shortness a breath, abdominal pain, nausea vomiting at this time. She only complains of feeling cold. Patient is unable to answer orientation questions due to her mental
[2021-08-31] MEDS: INSULIN HUMAN REGULAR (*BKC) 100 UNITS in SODIUM CHLORIDE 0.9% IV 99 ML 6.6 UNITS IV CONT (12:58)
[2021-08-31 13:09] LABS: Hemoglobin A1C > 14.0 % (<5.7)
[2021-08-31 13:15] LABS: Glucose Point of Care 412 mg/dl (65-105)
[2021-08-31 13:29] LABS: Hemoglobin A1C > 14.0 % (<5.7)
[2021-08-31 13:34] LABS: Ammonia < 9 umol/L (9-30)
[2021-08-31 13:37] LABS: Blood Urea Nitrogen 11 mg/dL (7-17); Calcium 8.4 mg/dL (8.4-10.2); Carbon Dioxide < 5 mmol/L (22-30); Chloride 115 mmol/L (98-107); Estimated CRCL calculation 62 ml/min; Estimated Glomerular Filt Rate > 60; Glucose 358 mg/dL (65-110); Potassium 4.5 mmol/L (3.4-5.0); Sodium 141 mmol/L (137-145)
[2021-08-31] MEDS: SODIUM CHLORIDE 0.9% IV 1,000 ML 150 ML IV CONT (13:38)
[2021-08-31 14:11] LABS: Glucose Point of Care 283 mg/dl (65-105)
[2021-08-31] MEDS: LIDOCAINE HCL 1% PF INJ 5 ML VIAL INFILTRATE (14:30)
[2021-08-31 14:52] LABS: Blood Urea Nitrogen 11 mg/dL (7-17); Calcium 8.4 mg/dL (8.4-10.2); Carbon Dioxide < 5 mmol/L (22-30); Chloride 115 mmol/L (98-107); Estimated CRCL calculation 62 ml/min; Estimated Glomerular Filt Rate > 60; Glucose 358 mg/dL (65-110); Potassium 4.5 mmol/L (3.4-5.0); Sodium 141 mmol/L (137-145)
[2021-08-31 15:09] LABS: Glucose Point of Care 259 mg/dl (65-105)
[2021-08-31 16:17] LABS: Glucose Point of Care 219 mg/dl (65-105)
[2021-08-31] MEDS: KCL 20 MEQ/D5/0.45% SOD CHL 1,000 ML 150 ML IV CONT (17:18)
[2021-08-31 17:24] LABS: Glucose Point of Care 171 mg/dl (65-105)
[2021-08-31 17:29] LABS: Anion Gap 10 mmol/L (8-16); Blood Urea Nitrogen 11 mg/dL (7-17); Carbon Dioxide 11 mmol/L (22-30); Chloride 119 mmol/L (98-107); Estimated CRCL calculation 89 ml/min; Estimated Glomerular Filt Rate > 60; Glucose 135 mg/dL (65-110); Sodium 140 mmol/L (137-145)
[2021-08-31 18:12] LABS: Glucose Point of Care 138 mg/dl (65-105)
[2021-08-31 18:57] LABS: Glucose Point of Care 147 mg/dl (65-105)
[2021-08-31 20:11] LABS: Glucose Point of Care 123 mg/dl (65-105)
[2021-08-31 20:58] LABS: Glucose Point of Care 124 mg/dl (65-105)
[2021-08-31] MEDS: PRAMIPEXOLE 1 MG TABLET 3 MG PO (21:56)
[2021-08-31] MEDS: CENTRAL LINE FLUSH 10 ML IV PUSH (21:56)
[2021-08-31 22:05] LABS: Glucose Point of Care 97 mg/dl (65-105)
[2021-08-31 22:06] LABS: Anion Gap 3 mmol/L (8-16); Blood Urea Nitrogen 10 mg/dL (7-17); Calcium 7.9 mg/dL (8.4-10.2); Carbon Dioxide 17 mmol/L (22-30); Chloride 118 mmol/L (98-107); Estimated CRCL calculation 89 ml/min; Estimated Glomerular Filt Rate > 60; Glucose 90 mg/dL (65-110); Potassium 3.1 mmol/L (3.4-5.0); Sodium 138 mmol/L (137-145)
[2021-08-31] MEDS: INSULIN GLARGINE (*BKC) 100 UNITS/ML 30 UNITS SUB-Q (22:56)
[2021-08-31] MEDS: KCL 40 MEQ/WATER 100 ML 100 ML 25 ML IVPB (22:56)
[2021-08-31 23:06] LABS: Glucose Point of Care 96 mg/dl (65-105)
[2021-08-31 23:51] LABS: Glucose Point of Care 76 mg/dl (65-105)
[2021-09-01] VITALS (11 sets, daily range): BP systolic 97–129; BP diastolic 50–72; PULSE 68–87; RESP 12–18; TEMP 36.6–36.8; O2SAT 90–100; BMI 26.5
[2021-09-01 01:44] LABS: Glucose Point of Care 59 mg/dl (65-105)
[2021-09-01] MEDS: DEXTROSE 50% 25 GM/50 ML SYRINGE IV PUSH ×2 (02:38→05:23)
[2021-09-01 02:47] LABS: Glucose Point of Care 90 mg/dl (65-105)
[2021-09-01 02:47] LABS: Glucose Point of Care 54 mg/dl (65-105)
[2021-09-01] MEDS: ONDANSETRON INJ 4 MG/2 ML VIAL IV PUSH (03:15)
[2021-09-01] MEDS: SODIUM CHLORIDE 0.9% IV 1,000 ML 100 ML IV CONT (03:30)
[2021-09-01 04:30] LABS: Glucose Point of Care 106 mg/dl (65-105)
[2021-09-01] MEDS: CENTRAL LINE FLUSH 10 ML IV PUSH ×3 (05:17→22:12)
[2021-09-01 05:21] LABS: Hematocrit 33.5 % (37.0-47.0); Hemoglobin 10.7 g/dL (12.0-15.0); Mean Corpuscular HGB Conc 31.9 g/dl (32-36); Mean Corpuscular Hemoglobin 31.5 pg (26-34); Mean Corpuscular Volume 98.5 fl (80-100); Mean Platelet Volume 9.2 fl (7.4-10.4); Platelet Count Result 187 k/mm3 (150-375); Red Cell Distribution Width 14.6 % (11.5-14.5); White Blood Count 12.3 K/mm3 (4.5-10.0)
[2021-09-01 05:32] LABS: Anion Gap 4 mmol/L (8-16); Blood Urea Nitrogen 9 mg/dL (7-17); Calcium 8.9 mg/dL (8.4-10.2); Carbon Dioxide 20 mmol/L (22-30); Chloride 115 mmol/L (98-107); Estimated CRCL calculation 89 ml/min; Estimated Glomerular Filt Rate > 60; Glucose 82 mg/dL (65-110); Potassium 3.4 mmol/L (3.4-5.0); Sodium 139 mmol/L (137-145)
[2021-09-01 05:40] LABS: Glucose Point of Care 114 mg/dl (65-105)
[2021-09-01 05:40] LABS: Glucose Point of Care 67 mg/dl (65-105)
[2021-09-01 07:35] LABS: Glucose Point of Care 118 mg/dl (65-105)
[2021-09-01] MEDS: GABAPENTIN 300 MG CAPSULE PO (08:26)
[2021-09-01] MEDS: POTASSIUM CHLORIDE 20 MEQ PACKET (FOR LIQUID) 40 MEQ PO (08:26)
[2021-09-01] MEDS: DULoxetine HCL 60 MG CAPSULE.DR PO (08:26)
[2021-09-01] MEDS: KCL 20 MEQ/0.45% NS 1,000 ML 100 ML IV CONT ×2 (08:30→19:36)
--- NOTE | 2021-09-01 09:38 | WPDINTPN ---
Progress Note: A&P Assessment and Plan (1) DKA (diabetic ketoacidosis): Qualifiers: Diabetes mellitus complication detail: without coma Diabetes mellitus type: type 2 Qualified Code(s): E11.10 - Type 2 diabetes mellitus with ketoacidosis without coma Code(s): E11.10 - Type 2 diabetes mellitus with ketoacidosis without coma Status: Acute Assessment and Plan: Patient presented with significant metabolic acidosis, hyperglycemia positive beta hydroxybutyrate -diagnosed with DKA, patient was given 2 L IV fluids in the ICU improvement in the heart rate -inciting factor could be UTI, patient also has history of noncompliance with insulin and multiple admissions in the past -her anion gap is closed and she has been transition to subcutaneous insulin -continue decreased IV fluids -decrease Lantus dose as patient had hypoglycemia overnight. -continue sliding scale insulin -will have dietitian a and nursing educator evaluated the patient -her hemoglobin A1c is > 14 (2) Acute UTI: Code(s): N39.0 - Urinary tract infection, site not specified Status: Acute Assessment and Plan: Urinalysis was positive for UTI, patient on ceftriaxone -urine cultures have been obtained and pending Lactic acid level has normalized (3) Diabetic peripheral neuropathy: Code(s): E11.42 - Type 2 diabetes mellitus with diabetic polyneuropathy Status: Acute Assessment and Plan: Continue Neurontin (4) Restless leg syndrome: Code(s): G25.81 - Restless legs syndrome Status: Acute Assessment and Plan: Continue Mirapex (5) Hypothyroidism: Qualifiers: Hypothyroidism type: unspecified Qualified Code(s): E03.9 - Hypothyroidism, unspecified Code(s): E03.9 - Hypothyroidism, unspecified Status: Acute Assessment and Plan: Continue levothyroxine Check TSH (6) Electrolyte abnormality: Code(s): E87.8 - Other disorders of electrolyte and fluid balance, not elsewhere classified Status: Acute Assessment and Plan: Potassium replacement ordered Additional Plan DVT prophylaxis -SCDs while in the bed. I expect patient to ambulate Nutrition -advanced diabetic diet Code Status - Full Code Transfer out of ICU today Subjective Date/time seen: 09/01/21 09:38 Overnight events reviewed. Afebrile Her anion gap closed and she was switched to subcutaneous insulin. She had episode of hypoglycemia overnight requiring IV push dextrose This morning she is sleeping and denies any complaints. Patient denies fever, chest pain, shortness of breath, cough, nausea vomiting, abdominal pain,, diarrhea, headache or constipation. All other systems were reviewed and were negative Urine output is good and other vitals are stable. Room air Review of Systems Review of Systems: All systems reviewed & are unremarkable except as noted in HPI and below Exam Narrative: General: Patient is in no acute distress HEENT: Pupils equal and reactive, sclera is clear Neck: Supple, no cervical lymphadenopathy Respiratory: clear to auscultation bilaterally Cardiac: S1-S2 is normal, sinus tachycardia Abdomen: Soft, nontender, nondistended, hypoactive bowel sounds Extremities: No edema, warm, palpable pedal pulses Neuro: AO x3 with no focal neurological deficit apparent she moves all 4 extremities. Skin: Warm and dry, no skin lesions noted Psych: Unable to assess at this time Objective Data Vital Signs Vital Signs: Vital Signs - 24 hr 08/31/21 12:53 08/31/21 12:30 08/31/21 12:30 Temperature 35.5 C L Pulse Rate 125 H 131 H Respiratory Rate 18 Blood Pressure 141/92 H Pulse Oximetry 100 100 Oxygen Delivery Nasal Cannula Oxygen Flow Rate 2 08/31/21 14:08 08/31/21 14:09 08/31/21 16:00 Temperature 36.6 C Pulse Rate 73 75 78 Respiratory Rate 13 12 Blood Pressure 109/73 119/65 Pulse Oximetry 100 100 Oxygen Delivery Oxygen
[2021-09-01 10:28] LABS: Thyroid Stimulating Hormone Reflex 0.939 uIU/mL (0.465-4.68)
[2021-09-01 11:03] LABS: Glucose Point of Care 83 mg/dl (65-105)
[2021-09-01 12:24] LABS: Glucose Point of Care 87 mg/dl (65-105)
[2021-09-01 16:14] LABS: Glucose Point of Care 89 mg/dl (65-105)
[2021-09-01] MEDS: PRAMIPEXOLE 1 MG TABLET 3 MG PO (20:36)
[2021-09-01 20:47] LABS: Glucose Point of Care 108 mg/dl (65-105)
[2021-09-02] VITALS: BP 104/60; PULSE 75; PULSE 78; RESP 21
[2021-09-02 04:00] VITALS: BP 113/61; PULSE 77; PULSE 78; RESP 19; TEMP 36.9; O2SAT 96
[2021-09-02] MEDS: KCL 20 MEQ/0.45% NS 1,000 ML 100 ML IV CONT (04:21)
[2021-09-02] MEDS: CENTRAL LINE FLUSH 10 ML IV PUSH ×2 (04:21→12:49)
[2021-09-02 05:03] LABS: Hematocrit 33.3 % (37.0-47.0); Hemoglobin 10.5 g/dL (12.0-15.0); Mean Corpuscular HGB Conc 31.5 g/dl (32-36); Mean Corpuscular Hemoglobin 31.4 pg (26-34); Mean Corpuscular Volume 99.7 fl (80-100); Mean Platelet Volume 9.6 fl (7.4-10.4); Platelet Count Result 160 k/mm3 (150-375); Red Blood Count 3.34 M/mm3 (4.2-5.4); Red Cell Distribution Width 14.6 % (11.5-14.5); White Blood Count 7.2 K/mm3 (4.5-10.0)
[2021-09-02 05:19] LABS: Anion Gap 1 mmol/L (8-16); Blood Urea Nitrogen 7 mg/dL (7-17); Calcium 8.9 mg/dL (8.4-10.2); Carbon Dioxide 23 mmol/L (22-30); Chloride 110 mmol/L (98-107); Estimated CRCL calculation 87 ml/min; Estimated Glomerular Filt Rate > 60; Glucose 58 mg/dL (65-110); Magnesium 1.9 mg/dL (1.6-2.3); Potassium 3.6 mmol/L (3.4-5.0); Sodium 134 mmol/L (137-145)
[2021-09-02] MEDS: DEXTROSE 50% 25 GM/50 ML SYRINGE IV PUSH (05:20)
[2021-09-02 05:42] LABS: Glucose Point of Care 140 mg/dl (65-105)
[2021-09-02 07:29] LABS: Glucose Point of Care 117 mg/dl (65-105)
[2021-09-02 07:55] LABS: Lipase 31 U/L (23-300)
[2021-09-02 08:00] VITALS: BP 137/75; PULSE 74; RESP 19; TEMP 36.6; O2SAT 100
--- NOTE | 2021-09-02 09:44 | WPDINTPN ---
Progress Note: A&P Assessment and Plan (1) DKA (diabetic ketoacidosis): Qualifiers: Diabetes mellitus complication detail: without coma Diabetes mellitus type: type 2 Qualified Code(s): E11.10 - Type 2 diabetes mellitus with ketoacidosis without coma Code(s): E11.10 - Type 2 diabetes mellitus with ketoacidosis without coma Status: Acute Assessment and Plan: Patient presented with significant metabolic acidosis, hyperglycemia positive beta hydroxybutyrate -diagnosed with DKA, patient was given 2 L IV fluids in the ICU improvement in the heart rate -inciting factor could be UTI, patient also has history of noncompliance with insulin and multiple admissions in the past -her anion gap is closed and she has been transition to subcutaneous insulin -hold Lantus until patient's p.o. intake improves -continue sliding scale insulin -will have dietitian a and breastfeeding educator evaluated the patient -her hemoglobin A1c is > 14 (2) Acute UTI: Code(s): N39.0 - Urinary tract infection, site not specified Status: Acute Assessment and Plan: Urinalysis was positive for UTI, patient on ceftriaxone -urine cultures have been obtained and pending Lactic acid level has normalized (3) Diabetic peripheral neuropathy: Code(s): E11.42 - Type 2 diabetes mellitus with diabetic polyneuropathy Status: Acute Assessment and Plan: Continue Neurontin (4) Restless leg syndrome: Code(s): G25.81 - Restless legs syndrome Status: Acute Assessment and Plan: Continue Mirapex (5) Hypothyroidism: Qualifiers: Hypothyroidism type: unspecified Qualified Code(s): E03.9 - Hypothyroidism, unspecified Code(s): E03.9 - Hypothyroidism, unspecified Status: Acute Assessment and Plan: Continue levothyroxine Normal TSH (6) Electrolyte abnormality: Code(s): E87.8 - Other disorders of electrolyte and fluid balance, not elsewhere classified Status: Acute Assessment and Plan: Potassium replacement ordered (7) Abdominal pain: Code(s): R10.9 - Unspecified abdominal pain Status: Acute Assessment and Plan: Check lipase Check right upper quadrant ultrasound Start PPI and p.r.n. Mylanta Consult GI Start Reglan for possible gastroparesis (8) Decreased oral intake: Code(s): R63.8 - Other symptoms and signs concerning food and fluid intake Status: Acute Assessment and Plan: Added Reglan for gastroparesis Change diet to regular her increased doses Added nutrition supplement flavored shakes Additional Plan DVT prophylaxis -SCDs while in the bed. I expect patient to ambulate Nutrition -regular Code Status - Full Code PT OT consult incentive spirometry up in chair Subjective Date/time seen: 09/02/21 09:44 Hospitalist inpatient progress note Patient was transitioned to subcutaneous insulin yesterday but her p.o. intake has been low. Her Lantus was held last night and despite that she had episode of hypoglycemia this morning. She received dextrose IV push. Patient states that she does not feel like eating. She states that after 2-3 bites she gags. She denies any dysphagia or odynophagia. She denies early satiety. She does not report any trouble with quality of food per se. She also states abdominal pain in epigastric area. Pain is intermittent and unrelated to food. She rates the pain 10/10 at this time. She states that she does get this pain at home and it is chronic and she takes [place] for it but it does not help. She denies any nausea vomiting. No diarrhea. All other systems were reviewed and were negative Review of Systems Review of Systems: All systems reviewed & are unremarkable except as noted in HPI and below Exam Narrative: General: Patient is in no acute distress HEENT: Pupils equal and reactive, sclera is clear Neck: Supple, no cervical lymphadenopathy Respiratory
[2021-09-02] MEDS: POTASSIUM CHLORIDE 20 MEQ PACKET (FOR LIQUID) 40 MEQ PO (09:50)
[2021-09-02] MEDS: DULoxetine HCL 60 MG CAPSULE.DR PO (09:50)
[2021-09-02] MEDS: GABAPENTIN 300 MG CAPSULE PO ×3 (09:50→18:49)
[2021-09-02] MEDS: PANTOPRAZOLE 40 MG TABLET PO (09:50)
[2021-09-02 12:00] VITALS: BP 137/82; PULSE 76; RESP 18; TEMP 36.6; O2SAT 100
[2021-09-02] MEDS: INSULIN ASPART (*BKC) 100 UNITS/ML SUB-Q (12:48)
[2021-09-02] MEDS: METOCLOPRAMIDE HCL 5 MG TABLET PO ×3 (12:49→21:12)
[2021-09-02 12:54] LABS: Glucose Point of Care 224 mg/dl (65-105)
[2021-09-02 18:17] VITALS: BP 145/88; PULSE 70; RESP 20; TEMP 36.6; O2SAT 100
[2021-09-02 18:23] LABS: Glucose Point of Care 429 mg/dl (65-105)
--- NOTE | 2021-09-02 18:38 | PC.NURSE ---
This patient, Karly Leslie, was transferred to [facility] on 09/02/21 at 1838. Personal belongings sent with patient. Appropriate documentation sent with patient.
[2021-09-02 20:00] VITALS: BP 116/60; PULSE 77; RESP 20; TEMP 36.6; O2SAT 99
[2021-09-02] MEDS: INSULIN GLARGINE (*BKC) 100 UNITS/ML 10 UNITS SUB-Q (20:24)
[2021-09-02] MEDS: INSULIN ASPART (*BKC) 100 UNITS/ML 10 UNITS SUB-Q (20:24)
[2021-09-02] MEDS: PRAMIPEXOLE 1 MG TABLET 3 MG PO (20:25)
[2021-09-02 22:37] LABS: Glucose Point of Care 298 mg/dl (65-105)
[2021-09-03] VITALS (7 sets, daily range): BP systolic 107–142; BP diastolic 49–80; PULSE 74–82; RESP 14–20; TEMP 36.5–36.9; O2SAT 96–99
[2021-09-03] MEDS: KCL 20 MEQ/0.45% NS 1,000 ML 50 ML IV CONT (00:59)
[2021-09-03] MEDS: CENTRAL LINE FLUSH 10 ML IV PUSH ×4 (06:08→21:00)
[2021-09-03] MEDS: METOCLOPRAMIDE HCL 5 MG TABLET PO ×4 (06:09→20:57)
[2021-09-03 06:27] LABS: Hematocrit 33.6 % (37.0-47.0); Hemoglobin 10.5 g/dL (12.0-15.0); Mean Corpuscular HGB Conc 31.3 g/dl (32-36); Mean Corpuscular Hemoglobin 31.2 pg (26-34); Mean Corpuscular Volume 99.7 fl (80-100); Mean Platelet Volume 9.5 fl (7.4-10.4); Platelet Count Result 155 k/mm3 (150-375); Red Blood Count 3.37 M/mm3 (4.2-5.4); Red Cell Distribution Width 13.9 % (11.5-14.5); White Blood Count 4.1 K/mm3 (4.5-10.0)
[2021-09-03 06:37] LABS: Alanine Aminotransferase 30 U/L (6-35); Albumin Level 2.6 g/dL (3.5-5.1); Alkaline Phosphatase 140 U/L (38-126); Anion Gap 3 mmol/L (8-16); Aspartate Amino Transferase 23 U/L (14-36); Bilirubin,Total 0.4 mg/dL (0.2-1.3); Blood Urea Nitrogen 7 mg/dL (7-17); Calcium 8.7 mg/dL (8.4-10.2); Carbon Dioxide 23 mmol/L (22-30); Chloride 105 mmol/L (98-107); Estimated CRCL calculation 90 ml/min; Estimated Glomerular Filt Rate > 60; Glucose 221 mg/dL (65-110); Magnesium 1.8 mg/dL (1.6-2.3); Potassium 3.7 mmol/L (3.4-5.0); Sodium 131 mmol/L (137-145)
[2021-09-03 07:45] LABS: Glucose Point of Care 217 mg/dl (65-105)
[2021-09-03] MEDS: DULoxetine HCL 60 MG CAPSULE.DR PO (08:59)
[2021-09-03] MEDS: PANTOPRAZOLE 40 MG TABLET PO (08:59)
[2021-09-03] MEDS: GABAPENTIN 300 MG CAPSULE PO ×3 (08:59→17:38)
[2021-09-03] MEDS: INSULIN ASPART (*BKC) 100 UNITS/ML SUB-Q ×4 (09:00→20:56)
[2021-09-03 12:07] LABS: Glucose Point of Care 303 mg/dl (65-105)
--- NOTE | 2021-09-03 14:31 | PM.IMPN ---
Progress Note: A&P Assessment and Plan (1) DKA (diabetic ketoacidosis): Qualifiers: Diabetes mellitus complication detail: without coma Diabetes mellitus type: type 2 Qualified Code(s): E11.10 - Type 2 diabetes mellitus with ketoacidosis without coma Code(s): E11.10 - Type 2 diabetes mellitus with ketoacidosis without coma Status: Acute Assessment and Plan: 09/03/2021 Interval history, patient was started on Lantus 25 units at bedtime and sliding scale, today patient states feeling much better sugars are not well controlled will continue to monitor with sliding scale and assessed as needed, patient states she does not drink alcohol on a regular basis, will have a PT OT evaluate the patient patient will benefit going to acute rehab. (2) Electrolyte abnormality: Code(s): E87.8 - Other disorders of electrolyte and fluid balance, not elsewhere classified Status: Acute Assessment and Plan: most likely secondary to hyperglycemia will correct blood sugar and monitor her lytes (3) Diabetic peripheral neuropathy: Code(s): E11.42 - Type 2 diabetes mellitus with diabetic polyneuropathy Status: Acute Assessment and Plan: will continue home regimen (4) Type 2 diabetes mellitus: Qualifiers: Diabetes mellitus complication status: without complication Diabetes mellitus chcf insulin use: without chcf use Qualified Code(s): E11.9 - Type 2 diabetes mellitus without complications Code(s): E11.9 - Type 2 diabetes mellitus without complications Status: Acute Assessment and Plan: will continue home regimen Subjective Date/time seen: 09/03/21 14:31 [id number] female presenting to the emergency department for evaluation of elevated blood sugars.? Patient states over the last 2 days her blood sugars have been elevated.? Patient states that her blood sugars typically run in the 300s but that they were running in the 500s over the last 2 days.? Patient states that on Monday night she did take her Lantus.? Patient states she did not take her 35 units Lantus on Monday.? Upon arrival with blood department patient's blood sugar was 358.? Patient's still complaining of nausea and is also complaining of her restless leg syndrome.? Patient denies any associated chest pain or shortness of breath.? Patient denies any associate abdominal pain. 09/03/2021 Interval history, patient was started on Lantus 25 units at bedtime and sliding scale, today patient states feeling much better sugars are not well controlled will continue to monitor with sliding scale and assessed as needed, patient states she does not drink alcohol on a regular basis, will have a PT OT evaluate the patient patient will benefit going to acute rehab. Review of Systems Review of Systems: All systems reviewed & are unremarkable except as noted in HPI and below Exam Narrative: Patient is comfortable, NAD HEENT: eyes are clear and none icteric LUNGS: normal respiratory effort ABD: not distended Lower extremities: no edema SKIN: nonjaundiced Neuro: grossly intact. Objective Data Vital Signs Vital Signs: Vital Signs - 24 hr 09/02/21 18:17 09/02/21 20:00 09/02/21 20:00 Temperature 97.8 F 98 F Pulse Rate 70 77 77 Respiratory Rate 20 20 20 Blood Pressure 145/88 H 116/60 Pulse Oximetry 100 99 99 Oxygen Delivery Room Air 09/03/21 00:00 09/03/21 04:00 09/03/21 10:00 Temperature 97.8 F 97.7 F 98.3 F Pulse Rate 79 74 82 Respiratory Rate 20 20 16 Blood Pressure 129/70 142/80 H 107/49 L Pulse Oximetry 98 97 99 Oxygen Delivery Intake/Output Intake/Output: Intake & Output 08/31/21 09/01/21 09/02/21 09/03/21 23:59 23:59 23:59 23:59 Intake Total 3345.8 1550 2720 120 Output Total 800 1000 500 275 Balance 2545.8 550 2220 -155 Meds/Results Medications: Active Medications Generic Name Dose Route Start Last Admin Trade Name Freq PRN Reason Sto
[2021-09-03 17:06] LABS: Glucose Point of Care 287 mg/dl (65-105)
[2021-09-03] MEDS: PRAMIPEXOLE 1 MG TABLET 3 MG PO (20:57)
[2021-09-03 21:04] LABS: Glucose Point of Care 279 mg/dl (65-105)
[2021-09-04 04:00] VITALS: BP 150/72; PULSE 58; RESP 16; TEMP 36.7; O2SAT 100
[2021-09-04] MEDS: CENTRAL LINE FLUSH 10 ML IV PUSH ×3 (05:34→21:06)
[2021-09-04] MEDS: METOCLOPRAMIDE HCL 5 MG TABLET PO ×4 (05:34→21:06)
[2021-09-04 05:37] LABS: Hematocrit 33.6 % (37.0-47.0); Hemoglobin 10.5 g/dL (12.0-15.0); Mean Corpuscular HGB Conc 31.3 g/dl (32-36); Mean Corpuscular Hemoglobin 30.9 pg (26-34); Mean Corpuscular Volume 98.8 fl (80-100); Mean Platelet Volume 9.1 fl (7.4-10.4); Platelet Count Result 146 k/mm3 (150-375); White Blood Count 4.1 K/mm3 (4.5-10.0)
[2021-09-04 05:48] LABS: Alanine Aminotransferase 24 U/L (6-35); Albumin Level 2.6 g/dL (3.5-5.1); Alkaline Phosphatase 129 U/L (38-126); Anion Gap 5 mmol/L (8-16); Aspartate Amino Transferase 16 U/L (14-36); Bilirubin,Total 0.3 mg/dL (0.2-1.3); Blood Urea Nitrogen 9 mg/dL (7-17); Calcium 8.8 mg/dL (8.4-10.2); Carbon Dioxide 26 mmol/L (22-30); Chloride 101 mmol/L (98-107); Estimated CRCL calculation 89 ml/min; Estimated Glomerular Filt Rate > 60; Glucose 297 mg/dL (65-110); Magnesium 1.8 mg/dL (1.6-2.3); Potassium 3.8 mmol/L (3.4-5.0); Sodium 132 mmol/L (137-145)
[2021-09-04] MEDS: INSULIN ASPART (*BKC) 100 UNITS/ML SUB-Q ×4 (06:32→21:24)
[2021-09-04 06:40] LABS: Glucose Point of Care 298 mg/dl (65-105)
[2021-09-04] MEDS: INSULIN GLARGINE (*BKC) 100 UNITS/ML 10 UNITS SUB-Q (09:20)
[2021-09-04] MEDS: DULoxetine HCL 60 MG CAPSULE.DR PO (09:23)
[2021-09-04] MEDS: PANTOPRAZOLE 40 MG TABLET PO (09:23)
[2021-09-04] MEDS: GABAPENTIN 300 MG CAPSULE PO ×3 (09:23→16:48)
[2021-09-04 11:46] LABS: Glucose Point of Care 350 mg/dl (65-105)
[2021-09-04] MEDS: KCL 20 MEQ/0.45% NS 1,000 ML 50 ML IV CONT (12:42)
--- NOTE | 2021-09-04 14:08 | PM.IMPN ---
Progress Note: A&P Assessment and Plan (1) DKA (diabetic ketoacidosis): Qualifiers: Diabetes mellitus complication detail: without coma Diabetes mellitus type: type 2 Qualified Code(s): E11.10 - Type 2 diabetes mellitus with ketoacidosis without coma Code(s): E11.10 - Type 2 diabetes mellitus with ketoacidosis without coma Status: Acute Assessment and Plan: 09/03/2021 Interval history, patient was started on Lantus 25 units at bedtime and sliding scale, today patient states feeling much better sugars are not well controlled will continue to monitor with sliding scale and assessed as needed, patient states she does not drink alcohol on a regular basis, will have a PT OT evaluate the patient patient will benefit going to acute rehab. 09/04/2021 Interval history, patient was started on Lantus 25 units at bedtime and sliding scale, patient is taking Lantus 35 units at bedtime at home, her blood sugars running high will start the patient 10 units of Lantus during morning, they will make total of 35 units of Lantus as she had been taking at home, today patient states feeling much better sugars are not well controlled will continue to monitor with sliding scale and assessed as needed, patient states she does not drink alcohol on a regular basis, will have a PT OT evaluate the patient patient will benefit going to acute rehab. (2) Electrolyte abnormality: Code(s): E87.8 - Other disorders of electrolyte and fluid balance, not elsewhere classified Status: Acute Assessment and Plan: most likely secondary to hyperglycemia will correct blood sugar and monitor her lytes (3) Diabetic peripheral neuropathy: Code(s): E11.42 - Type 2 diabetes mellitus with diabetic polyneuropathy Status: Acute Assessment and Plan: will continue home regimen (4) Type 2 diabetes mellitus: Qualifiers: Diabetes mellitus complication status: without complication Diabetes mellitus groundwater monitoring technician insulin use: without groundwater monitoring technician use Qualified Code(s): E11.9 - Type 2 diabetes mellitus without complications Code(s): E11.9 - Type 2 diabetes mellitus without complications Status: Acute Assessment and Plan: will continue home regimen Additional Plan DVT prophylaxis -SCDs while in the bed. I expect patient to ambulate Nutrition -regular Code Status - Full Code PT OT consult incentive spirometry up in chair Subjective Date/time seen: 09/04/21 14:08 09/04/2021 Interval history, patient was started on Lantus 25 units at bedtime and sliding scale, patient is taking Lantus 35 units at bedtime at home, her blood sugars running high will start the patient 10 units of Lantus during morning, they will make total of 35 units of Lantus as she had been taking at home, today patient states feeling much better sugars are not well controlled will continue to monitor with sliding scale and assessed as needed, patient states she does not drink alcohol on a regular basis, will have a PT OT evaluate the patient patient will benefit going to acute rehab. Review of Systems Review of Systems: All systems reviewed & are unremarkable except as noted in HPI and below Exam Narrative: Patient is comfortable, NAD HEENT: eyes are clear and none icteric LUNGS: normal respiratory effort ABD: not distended Lower extremities: no edema SKIN: nonjaundiced Neuro: grossly intact. Objective Data Vital Signs Vital Signs: Vital Signs - 24 hr 09/03/21 18:00 09/03/21 20:00 09/03/21 20:00 Temperature 98.5 F 98.0 F Pulse Rate 77 78 Respiratory Rate 14 18 Blood Pressure 117/50 L 130/68 Pulse Oximetry 96 97 Oxygen Delivery Room Air 09/03/21 22:48 09/04/21 04:00 Temperature 98.0 F 98.1 F Pulse Rate 78 58 L Respiratory Rate 16 16 Blood Pressure 130/68 150/72 H Pulse Oximetry 97 100 Oxygen Delivery Intake/Output Intake/Output: Intake & Output 09/01/21 09/02/21 09/03/21
[2021-09-04 15:00] VITALS: BP 134/83; PULSE 80; RESP 16; TEMP 36.1; O2SAT 100
[2021-09-04 16:45] LABS: Glucose Point of Care 375 mg/dl (65-105)
[2021-09-04 20:59] VITALS: BP 132/67; PULSE 67; RESP 20; TEMP 36.6; O2SAT 100
[2021-09-04] MEDS: PRAMIPEXOLE 1 MG TABLET 3 MG PO (21:06)
[2021-09-04 21:10] LABS: Glucose Point of Care 264 mg/dl (65-105)
[2021-09-05 04:39] VITALS: BP 157/79; PULSE 62; RESP 18; TEMP 36.6; O2SAT 98
[2021-09-05] MEDS: METOCLOPRAMIDE HCL 5 MG TABLET PO ×4 (05:53→21:00)
[2021-09-05] MEDS: CENTRAL LINE FLUSH 10 ML IV PUSH ×2 (05:53→12:15)
[2021-09-05 06:13] LABS: Hematocrit 33.1 % (37.0-47.0); Hemoglobin 10.9 g/dL (12.0-15.0); Mean Corpuscular HGB Conc 32.9 g/dl (32-36); Mean Corpuscular Hemoglobin 31.7 pg (26-34); Mean Corpuscular Volume 96.2 fl (80-100); Mean Platelet Volume 9.3 fl (7.4-10.4); Platelet Count Result 179 k/mm3 (150-375); Red Blood Count 3.44 M/mm3 (4.2-5.4); Red Cell Distribution Width 13.8 % (11.5-14.5); White Blood Count 4.3 K/mm3 (4.5-10.0)
[2021-09-05 06:19] LABS: Alanine Aminotransferase 22 U/L (6-35); Albumin Level 2.9 g/dL (3.5-5.1); Alkaline Phosphatase 126 U/L (38-126); Anion Gap 1 mmol/L (8-16); Aspartate Amino Transferase 16 U/L (14-36); Bilirubin,Total 0.2 mg/dL (0.2-1.3); Blood Urea Nitrogen 8 mg/dL (7-17); Calcium 9.1 mg/dL (8.4-10.2); Carbon Dioxide 34 mmol/L (22-30); Chloride 100 mmol/L (98-107); Estimated CRCL calculation 113 ml/min; Estimated Glomerular Filt Rate > 60; Glucose 175 mg/dL (65-110); Magnesium 1.8 mg/dL (1.6-2.3); Potassium 3.5 mmol/L (3.4-5.0); Sodium 135 mmol/L (137-145)
[2021-09-05 06:22] LABS: Glucose Point of Care 179 mg/dl (65-105)
[2021-09-05] MEDS: KCL 20 MEQ/0.45% NS 1,000 ML 50 ML IV CONT (07:19)
[2021-09-05] MEDS: INSULIN GLARGINE (*BKC) 100 UNITS/ML 10 UNITS SUB-Q (08:05)
[2021-09-05] MEDS: PANTOPRAZOLE 40 MG TABLET PO (08:06)
[2021-09-05] MEDS: DULoxetine HCL 60 MG CAPSULE.DR PO (08:06)
[2021-09-05] MEDS: GABAPENTIN 300 MG CAPSULE PO ×3 (08:06→17:28)
[2021-09-05] MEDS: POTASSIUM CHLORIDE 20 MEQ TABLET 40 MEQ PO (09:27)
--- NOTE | 2021-09-05 11:32 | PM.IMPN ---
Progress Note: A&P Assessment and Plan (1) DKA (diabetic ketoacidosis): Qualifiers: Diabetes mellitus complication detail: without coma Diabetes mellitus type: type 2 Qualified Code(s): E11.10 - Type 2 diabetes mellitus with ketoacidosis without coma Code(s): E11.10 - Type 2 diabetes mellitus with ketoacidosis without coma Status: Acute Assessment and Plan: 09/03/2021 Interval history, patient was started on Lantus 25 units at bedtime and sliding scale, today patient states feeling much better sugars are not well controlled will continue to monitor with sliding scale and assessed as needed, patient states she does not drink alcohol on a regular basis, will have a PT OT evaluate the patient patient will benefit going to acute rehab. 09/04/2021 Interval history, patient was started on Lantus 25 units at bedtime and sliding scale, patient is taking Lantus 35 units at bedtime at home, her blood sugars running high will start the patient 10 units of Lantus during morning, they will make total of 35 units of Lantus as she had been taking at home, today patient states feeling much better sugars are not well controlled will continue to monitor with sliding scale and assessed as needed, patient states she does not drink alcohol on a regular basis, will have a PT OT evaluate the patient patient will benefit going to acute rehab. 09/05/2021 Interval history, patient was started on Lantus 25 units at bedtime and sliding scale, patient is taking Lantus 35 units at bedtime at home, her blood sugars running high will start the patient 10 units of Lantus during morning, this will make total of 35 units of Lantus as she had been taking at home, today her blood surgares are above 200, sugars are not well controlled, will increase bedtime lantus to 35units, will continue to monitor with sliding scale and assessed as needed, patient states she does not drink alcohol on a regular basis, will have a PT OT evaluate the patient patient will benefit going to acute rehab. (2) Electrolyte abnormality: Code(s): E87.8 - Other disorders of electrolyte and fluid balance, not elsewhere classified Status: Acute Assessment and Plan: most likely secondary to hyperglycemia will correct blood sugar and monitor her lytes (3) Diabetic peripheral neuropathy: Code(s): E11.42 - Type 2 diabetes mellitus with diabetic polyneuropathy Status: Acute Assessment and Plan: will continue home regimen (4) Type 2 diabetes mellitus: Qualifiers: Diabetes mellitus complication status: without complication Diabetes mellitus residential insulin use: without residential use Qualified Code(s): E11.9 - Type 2 diabetes mellitus without complications Code(s): E11.9 - Type 2 diabetes mellitus without complications Status: Acute Assessment and Plan: will continue home regimen Additional Plan DVT prophylaxis -SCDs while in the bed. I expect patient to ambulate Nutrition -regular Code Status - Full Code PT OT consult incentive spirometry up in chair Subjective Date/time seen: 09/05/21 11:32 09/05/2021 Interval history, patient was started on Lantus 25 units at bedtime and sliding scale, patient is taking Lantus 35 units at bedtime at home, her blood sugars running high will start the patient 10 units of Lantus during morning, this will make total of 35 units of Lantus as she had been taking at home, today her blood surgares are above 200, sugars are not well controlled, will increase bedtime lantus to 35units, will continue to monitor with sliding scale and assessed as needed, patient states she does not drink alcohol on a regular basis, will have a PT OT evaluate the patient patient will benefit going to acute rehab. Review of Systems Review of Systems: All systems reviewed & are unremarkable except as noted in HPI and below Exam Narrative: Patient is comfortable, NAD HEENT: eyes ar
[2021-09-05 11:48] LABS: Glucose Point of Care 287 mg/dl (65-105)
[2021-09-05] MEDS: INSULIN ASPART (*BKC) 100 UNITS/ML SUB-Q ×2 (12:09→17:27)
[2021-09-05 16:31] LABS: Glucose Point of Care 312 mg/dl (65-105)
[2021-09-05 17:00] VITALS: BP 132/81; PULSE 87; RESP 20; TEMP 35.9; O2SAT 97
[2021-09-05] MEDS: PRAMIPEXOLE 1 MG TABLET 3 MG PO (21:00)
[2021-09-05 21:10] LABS: Glucose Point of Care 422 mg/dl (65-105)
[2021-09-05] MEDS: INSULIN ASPART (*BKC) 100 UNITS/ML 10 UNITS SUB-Q (21:35)
[2021-09-05 22:00] VITALS: BP 138/70; PULSE 66; RESP 18; TEMP 36.8; O2SAT 98
[2021-09-06 00:44] LABS: Glucose Point of Care 160 mg/dl (65-105)
[2021-09-06] MEDS: KCL 20 MEQ/0.45% NS 1,000 ML 50 ML IV CONT (05:23)
[2021-09-06] MEDS: CENTRAL LINE FLUSH 10 ML IV PUSH ×2 (05:33→14:18)
[2021-09-06 05:52] LABS: Hematocrit 34.6 % (37.0-47.0); Hemoglobin 11.4 g/dL (12.0-15.0); Mean Corpuscular HGB Conc 32.9 g/dl (32-36); Mean Corpuscular Hemoglobin 31.7 pg (26-34); Mean Corpuscular Volume 96.1 fl (80-100); Mean Platelet Volume 9.5 fl (7.4-10.4); Platelet Count Result 202 k/mm3 (150-375); Red Cell Distribution Width 13.9 % (11.5-14.5); White Blood Count 4.5 K/mm3 (4.5-10.0)
[2021-09-06 06:00] VITALS: BP 133/72; PULSE 68; RESP 18; TEMP 37; O2SAT 100
[2021-09-06 06:06] LABS: Alanine Aminotransferase 18 U/L (6-35); Alkaline Phosphatase 121 U/L (38-126); Anion Gap 2 mmol/L (8-16); Aspartate Amino Transferase 15 U/L (14-36); Bilirubin,Total 0.2 mg/dL (0.2-1.3); Blood Urea Nitrogen 9 mg/dL (7-17); Calcium 9.5 mg/dL (8.4-10.2); Carbon Dioxide 35 mmol/L (22-30); Chloride 98 mmol/L (98-107); Estimated CRCL calculation 89 ml/min; Estimated Glomerular Filt Rate > 60; Glucose 195 mg/dL (65-110); Sodium 135 mmol/L (137-145)
[2021-09-06 07:50] LABS: Glucose Point of Care 278 mg/dl (65-105)
[2021-09-06] MEDS: GABAPENTIN 300 MG CAPSULE PO ×3 (08:50→17:14)
[2021-09-06] MEDS: PANTOPRAZOLE 40 MG TABLET PO (08:50)
[2021-09-06] MEDS: DULoxetine HCL 60 MG CAPSULE.DR PO (08:50)
[2021-09-06] MEDS: METOCLOPRAMIDE HCL 5 MG TABLET PO ×3 (08:51→17:14)
[2021-09-06] MEDS: INSULIN GLARGINE (*BKC) 100 UNITS/ML 10 UNITS SUB-Q (08:55)
--- NOTE | 2021-09-06 10:29 | PM.DS ---
DS: Admitting Diagnosis Discharge Date 09/06/2021 Admitting Diagnosis hyperglycemia DS: Discharge Diagnosis Discharge Diagnosis (1) DKA (diabetic ketoacidosis): Qualifiers: Diabetes mellitus complication detail: without coma Diabetes mellitus type: type 2 Qualified Code(s): E11.10 - Type 2 diabetes mellitus with ketoacidosis without coma Code(s): E11.10 - Type 2 diabetes mellitus with ketoacidosis without coma Status: Acute Assessment and Plan: 09/03/2021 Interval history, patient was started on Lantus 25 units at bedtime and sliding scale, today patient states feeling much better sugars are not well controlled will continue to monitor with sliding scale and assessed as needed, patient states she does not drink alcohol on a regular basis, will have a PT OT evaluate the patient patient will benefit going to acute rehab. 09/04/2021 Interval history, patient was started on Lantus 25 units at bedtime and sliding scale, patient is taking Lantus 35 units at bedtime at home, her blood sugars running high will start the patient 10 units of Lantus during morning, they will make total of 35 units of Lantus as she had been taking at home, today patient states feeling much better sugars are not well controlled will continue to monitor with sliding scale and assessed as needed, patient states she does not drink alcohol on a regular basis, will have a PT OT evaluate the patient patient will benefit going to acute rehab. 09/05/2021 Interval history, patient was started on Lantus 25 units at bedtime and sliding scale, patient is taking Lantus 35 units at bedtime at home, her blood sugars running high will start the patient 10 units of Lantus during morning, this will make total of 35 units of Lantus as she had been taking at home, today her blood surgares are above 200, sugars are not well controlled, will increase bedtime lantus to 35units, will continue to monitor with sliding scale and assessed as needed, patient states she does not drink alcohol on a regular basis, will have a PT OT evaluate the patient patient will benefit going to acute rehab. (2) Electrolyte abnormality: Code(s): E87.8 - Other disorders of electrolyte and fluid balance, not elsewhere classified Status: Acute Assessment and Plan: most likely secondary to hyperglycemia will correct blood sugar and monitor her lytes (3) Diabetic peripheral neuropathy: Code(s): E11.42 - Type 2 diabetes mellitus with diabetic polyneuropathy Status: Acute Assessment and Plan: will continue home regimen (4) Type 2 diabetes mellitus: Qualifiers: Diabetes mellitus complication status: without complication Diabetes mellitus manager long term care insulin use: without snf use Qualified Code(s): E11.9 - Type 2 diabetes mellitus without complications Code(s): E11.9 - Type 2 diabetes mellitus without complications Status: Acute Assessment and Plan: will continue home regimen DS: Summary Hospital Course Reason for hospitalization: Chief Complaint: 71-year-old female presenting to the emergency department for evaluation of elevated blood sugars.? Patient states over the last 2 days her blood sugars have been elevated.? Patient states that her blood sugars typically run in the 300s but that they were running in the 500s over the last 2 days.? Patient states that on Monday night she did take her Lantus.? Patient states she did not take her 35 units Lantus on Monday.? Upon arrival with blood department patient's blood sugar was 358.? Patient's still complaining of nausea and is also complaining of her restless leg syndrome.? Patient denies any associated chest pain or shortness of breath.? Patient denies any associate abdominal pain Hospital Course: ?patient was started on Lantus 25 units at bedtime and sliding scale, patient is taking Lantus 35 units at bedtime at home, her blood sugars running high will start
[2021-09-06 11:31] LABS: Glucose Point of Care 451 mg/dl (65-105)
[2021-09-06] MEDS: INSULIN GLARGINE (*BKC) 100 UNITS/ML 25 UNITS SUB-Q (11:38)
--- NOTE | 2021-09-06 11:38 | PCNFU ---
Nutrition Follow-Up Complete: Inadequate energy intake related to appetite as evidenced pt report Goal: PO intake of 50% or greater most meals. Pt is meeting goal. Continue with current goal Pt current nutrition is diabetic consistent carb. Nutrition recommendation: Continue with current plan of care. Last recorded weight is 61.2 kg - stable. Bowel Motility: +BM / Labs Reviewed: Hgb:11.4, HCT:34.6, Alb:3.0, NA:132, Glu:278 Meds Noted: lantus, reglan, miralax Skin: WNL Additional Notes: Pt continues on a diabetic diet. Intake 75-100% most all meals. Pt reports good appetite and intake at this time. No questions or concerns about diet order or diet recommendations. Monitor intake, wt, labs. Follow up in 5 days.
[2021-09-06] MEDS: INSULIN ASPART (*BKC) 100 UNITS/ML SUB-Q ×2 (11:39→17:14)
[2021-09-06 13:35] LABS: Glucose Point of Care 348 mg/dl (65-105)
[2021-09-06] MEDS: INSULIN ASPART (*BKC) 100 UNITS/ML 10 UNITS SUB-Q (13:59)
[2021-09-06 14:16] VITALS: BP 124/65; PULSE 61; RESP 18; TEMP 37.1; O2SAT 96
[2021-09-06 15:55] LABS: Glucose Point of Care 213 mg/dl (65-105)
== END 2021-09-06 18:40 | disposition home or self-care (01) | DRG 638 ==
LOC: ANHED 03:02 → ANHIMU 07:27 → ANH3MEDSUR 20:59 → ANHICU 08-31 12:28 → ANH3MED 09-06 15:57 → ANHICU 09-07 12:58
PROVIDERS: Chiropractor; Internal Medicine; Nurse Practitioner; Admitting Provider Internal Medicine; Emergency Provider Emergency Medicine; Visit Provider Family Medicine
DX: E11.10 Type 2 diabetes mellitus with ketoacidosis without coma (principal); N39.0 Urinary tract infection, site not specified; E11.42 Type 2 diabetes mellitus with diabetic polyneuropathy; Z20.822 Contact with and (suspected) exposure to COVID-19; R11.0 Nausea; F32.A Depression, unspecified; G25.81 Restless legs syndrome; E78.5 Hyperlipidemia, unspecified; M79.7 Fibromyalgia; E03.9 Hypothyroidism, unspecified; E87.8 Other disorders of electrolyte and fluid balance, not elsewhere classified; R63.8 Other symptoms and signs concerning food and fluid intake; R10.9 Unspecified abdominal pain; Z66 Do not resuscitate; Z79.899 Other long term (current) drug therapy; Z85.43 Personal history of malignant neoplasm of ovary; Z86.16 Personal history of COVID-19; Z91.14 Patient's other noncompliance with medication regimen
CPT/HCPCS: 36415; 36569; 36600; 76705; 80048; 80053; 81001; 82010; 82140; 82805; 82948; 83036; 83605; 83690; 83735; 84443; 85025; 85027; 87086; 87088; 96361; 96365; 96366; 96375; 96376; 97161; 97165; 99285; A9270; C1751; C9803; G0378; J0696; J1815; J2270; J2405; J3480; J7030; J7040; U0003; U0005

== ENCOUNTER 2021-09-14 10:33 | Inpatient (IN) | payer MEDICARE, OTHER, SELFPAY ==
[2021-09-14] VITALS (18 sets, daily range): BP systolic 113–145; BP diastolic 55–85; PULSE 70–87; RESP 14–24; TEMP 35.9–36.6; O2SAT 94–100; BMI 23.6
--- NOTE | 2021-09-14 10:49 | ECG_ITS ---
Measurements Intervals [place] Rate: 74 P: 33 [place]: 188 QRS: 23 QRSD: 89 T: 40 QT: 377 QTc: 419 Interpretive Statements SINUS RHYTHM WITH SINUS ARRHYTHMIA BORDERLINE R WAVE PROGRESSION, ANTERIOR LEADS ST ELEVATION IN ANTERIOR LEADS- PROBABLY EARLY REPOLARIZATION ABNORMALITY BORDERLINE ECG Electronically Signed On 09-14-2021 13:10:24 CDT by Unruly Panchal D.O.
--- NOTE | 2021-09-14 10:56 | ED.GENADULT ---
HPI - General Adult General Chief complaint: Unspecified Stated complaint: HYPERGLYCEMIA, WEAKNESS History of Present Illness HPI narrative: Pt sent to ED from PCP office for elevated BS and ketones in urine. Pt admitted last week for hyperglycemia and generalized weakness. Pt says she still felt weak on discharge. BS over 500 today in 400's last night. Pt took PM lantus but not her sliding scale. She did not take any insulin this morning because she didn't eat. Pt has been out of her trulicity for awhile. Pt says she still feels weak in general but denies fever, CP, SOB or cough. Pt denies urinary symptoms. Related Data Allergies Allergy/AdvReac Type Severity Reaction Status Date / Time banana Allergy Severe SEVERE Verified 09/14/21 10:57 HIVES acetaminophen [From Tylenol] AdvReac Intermediate Nausea and Verified 09/14/21 10:57 Vomiting aspirin AdvReac Intermediate Nausea and Verified 09/14/21 10:57 Vomiting fluoxetine [From Prozac] AdvReac Hallucinati Verified 09/14/21 10:57 ng Review of Systems Review of Systems: All systems reviewed & are unremarkable except as noted in HPI and below PMFSH Past Medical History Medical History Back pain Depression Diabetic peripheral neuropathy Fibromyalgia Hypothyroidism Memory change Ovarian cancer At the age of 33, status post hysterectomy. Patient states that half an ovary was left during surgery. She required no further treatment. Pneumonia due to COVID-19 virus (~09/2020) Restless leg syndrome Shingles Type 2 diabetes mellitus Hemoglobin A1c was > 14% 04/09/2021 C-peptide 0.63. Surgical History Surgical History History of tonsillectomy (~1970) History of total hysterectomy with bilateral salpingo-oophorectomy (BSO) (~1983) History of tubal ligation (~1983) Family History Family History Grandparent Family history of premature coronary heart disease, Onset Age: 64 Father Family history of respiratory disorder, Onset Age: 87 Family history of cardiovascular disease Patient's father is Family history of Alzheimer's disease Cerebrovascular accident Mother Family history of primary malignant neoplasm of liver, Onset Age: 64 Family history of malignant neoplasm Patient's mother is , Onset Age: 64 Family history of malignant neoplasm of breast in first degree relative Sibling Heart attack Sibling Heart attack Social History Social History Social History: The patient is . She lives in her own home in [place], [place]. She does not work. She has 2 daughters, and designates her daughter Jose Posey, as her surrogate decision maker. She wishes to be a do not resuscitate. She is a lifelong nonsmoker. She drinks perhaps 4-12 alcoholic beverages a week. No drug use. Smoking status: Never smoker Alcohol intake: never Drinks per week: 4 Substance use: never Substance use type: does not use Other substance usage details: denies Sexual Orientation (if Verbalized by the Patient): Straight or Heterosexual Spiritual care concerns: No Exam Const: General: cooperative and no acute distress Nutritional Appearance: average body habitus Orientation/consciousness: patient oriented x3 Limitations: no limitations HENMT: Head: atraumatic Face and sinus: normal facial exam Mouth: Yes dry mucous membranes Eyes: General: appearance normal, both eyes and all related structures Conjunctivae: conjunctivae normal Neck: Neck: normal visual inspection, full ROM, no lymphadenopathy and no meningeal signs Resp: Effort & Inspection: normal respiratory effort Auscultation: clear to auscultation bilaterally Cardio: Rate: regular rate Rhythm: regular rhythm Peripher
[2021-09-14 11:19] LABS: Basophils Absolute Auto 0.04 K/mm3 (0.00-0.10); Basophils Percent Auto 0.5 % (0.0-1.0); Eosinophils Percent Auto 1.3 % (1.0-6.0); Hematocrit 42.1 % (35.0-42.0); Hemoglobin 13.7 g/dL (11.7-13.8); Immature Granulocyte Absolute 0.03 K/mm3 (0.00-0.00); Immature Granulocyte Percent A 0.4 % (0.0-0.0); Lymphocytes Absolute Auto 1.34 K/mm3 (1.10-4.50); Lymphocytes Percent Auto 17.7 % (18.0-42.0); Mean Corpuscular HGB Conc 32.5 g/dL (32.0-36.0); Mean Corpuscular Hemoglobin 31.8 pg (27.0-31.0); Mean Corpuscular Volume 97.7 fL (78.0-102.0); Mean Platelet Volume 9.1 fl (9.2-11.8); Monocytes Absolute Auto 0.55 K/mm3 (0.10-0.90); Monocytes Percent Auto 7.3 % (2.0-11.0); Neutrophils Absolute Auto 5.5 K/mm3 (1.7-7.2); Neutrophils Percent Auto 72.8 % (50.0-70.0); Platelet Count Result 338 K/mm3 (150-420); Red Blood Count 4.31 M/mm3 (4.20-5.40); White Blood Count 7.6 K/mm3 (4.8-10.8)
[2021-09-14] MEDS: SODIUM CHLORIDE 0.9% IV 1,000 ML 999 ML IV CONT ×2 (11:31→12:40)
[2021-09-14] MEDS: INSULIN HUMAN REGULAR (*BKC) 100 UNITS/ML 14 UNITS IV PUSH (11:31)
--- NOTE | 2021-09-14 11:43 | PC.NURSE ---
PT IS LYING ON STRETCHER IN EXAM ROOM WITH WARM BLANKET AND LIGHTS OFF. PT DENIES ANY OTHER NEEDS OR COMPLAINTS. VSS PER MONITOR. PT HAS IVF INFUSING ORDERED WITHOUT DIFFICULTY. NAD NOTED. WILL CONTINUE TO MONITOR. PT HAS CALL LIGHT IN REACH.
[2021-09-14 11:53] LABS: Alanine Aminotransferase 19 U/L (14-59); Albumin Level 3.5 g/dL (3.4-5.0); Alkaline Phosphatase 145 U/L (46-116); Aspartate Amino Transferase < 10 U/L (15-37); Bilirubin,Total 0.4 mg/dL (0.00-1.00); Blood Urea Nitrogen 40 mg/dL (7-18); Calcium 10.6 mg/dL (8.5-10.1); Carbon Dioxide 18 mmol/L (21-32); Estimated CRCL calculation 33 ml/min; Estimated Glomerular Filt Rate 55; Total Protein 7.3 g/dL (6.4-8.2)
--- NOTE | 2021-09-14 12:24 | PC.NURSE ---
REPEAT FSBS OVER 500. ERP AWARE.
[2021-09-14 12:25] LABS: Glucose Point of Care > 450 mg/dl (65-105)
[2021-09-14 12:25] LABS: Glucose Point of Care > 450 mg/dl (65-105)
[2021-09-14 12:26] LABS: Anion Gap 18 mmol/L (8-16); Chloride 89 mmol/L (98-108); Potassium 5.1 mmol/L (3.5-5.1); Sodium 125 mmol/L (136-145)
[2021-09-14 12:30] LABS: Glucose 711 mg/dL (70-99); Osmolality Calculated 303 mOsm/kg (285-295)
[2021-09-14] MEDS: INSULIN HUMAN REGULAR (*BKC) 100 UNITS/ML 12 UNITS IV PUSH (12:37)
--- NOTE | 2021-09-14 12:44 | PC.NURSE ---
PT IS REQUESTING MEDICATION FOR RESTLESS LEG SYNDROME. PT IS CRYING IN EXAM ROOM. ERP AT BEDSIDE, DISCUSSING THE PLAN OF CARE. PT IS TO BE ADMITTED, AWAITING FLOOR TO CALL WITH ROOM AT THIS TIME, THEY ARE AWAITING RETURN CALL FROM HOSPITALIST. WILL CONTINUE TO MONITOR.
[2021-09-14 12:47] LABS: Troponin I 17.2 ng/L (0.00-60.4)
[2021-09-14] MEDS: LORazepam INJ (*CRX) 2 MG/ML VIAL 0.5 MG IV PUSH (12:51)
--- NOTE | 2021-09-14 13:18 | PC.NURSE ---
PT UP TO RR WITHOUT DIFFICULTY. WILL CONTINUE TO MONITOR. PT IS TO BE ADMITTED TO ROOM 205, PT IS AGREEABLE TO PLAN OF CARE.
[2021-09-14 13:38] LABS: Glucose Point of Care 254 mg/dl (65-105)
[2021-09-14 14:30] LABS: Glucose Point of Care 300 mg/dl (65-105)
--- NOTE | 2021-09-14 14:30 | PC.NURSE ---
Patient arrived to unit at 1350 via w/c and was able to transfer from w/c to bed unassisted. Patient drowsy d/t ativan administered in ER. Patient orientated to hospital environment and call light. Voiced understanding.
--- NOTE | 2021-09-14 15:38 | WPDGICN ---
GI Consult Note Consult date/time: 09/07/2021 HPI: never saw patient [facility] Past Medical History Medical History Back pain Depression Diabetic peripheral neuropathy Fibromyalgia Hypothyroidism Memory change Ovarian cancer At the age of 33, status post hysterectomy. Patient states that half an ovary was left during surgery. She required no further treatment. Pneumonia due to COVID-19 virus (~09/2020) Restless leg syndrome Shingles Type 2 diabetes mellitus Hemoglobin A1c was > 14% 04/09/2021 C-peptide 0.63. Surgical History Surgical History History of tonsillectomy (~1970) History of total hysterectomy with bilateral salpingo-oophorectomy (BSO) (~1983) History of tubal ligation (~1983) Family History Family History Grandparent Family history of premature coronary heart disease, Onset Age: 64 Father Family history of respiratory disorder, Onset Age: 87 Family history of cardiovascular disease Patient's father is Family history of Alzheimer's disease Cerebrovascular accident Mother Family history of primary malignant neoplasm of liver, Onset Age: 64 Family history of malignant neoplasm Patient's mother is , Onset Age: 64 Family history of malignant neoplasm of breast in first degree relative Sibling Heart attack Sibling Heart attack Social History Social History Social History: The patient is . She lives in her own home in [place], [place]. She does not work. She has 2 daughters, and designates her daughter Jose Posey, as her surrogate decision maker. She wishes to be a do not resuscitate. She is a lifelong nonsmoker. She drinks perhaps 4-12 alcoholic beverages a week. No drug use. Smoking status: Never smoker Second hand tobacco smoke exposure: No Alcohol intake: current Drinks per week: 4 Substance use: never Substance use type: does not use Other substance usage details: denies Sexual Orientation (if Verbalized by the Patient): Straight or Heterosexual Spiritual care concerns: No Meds Home Medications and Allergies Home Medications Medication Instructions Recorded Confirmed Type dulaglutide 0.75 mg/0.5 mL 0.75 mg (0.5 mL) subcut WEEKLY #2 09/14/21 09/14/21 Rx subcutaneous pen injector mL (Trulicity) miconazole nitrate 4 % (200 mg)-2 See Rx Instructions vaginal 09/14/21 09/14/21 Rx % (9 gram)vaginal,prefill .COMPLEX #24 grams appl,cream (Miconazole-3) pramipexole 1.5 mg tablet 3 mg PO HS #180 tabs 09/24/21 Rx insulin aspart U-100 100 unit/mL See Rx Instructions .Route 09/29/21 Rx (3 mL) subcutaneous pen (Novolog .COMPLEX 30 days #15 mL Flexpen U-100 Insulin aspart) insulin degludec 100 unit/mL (3 35 unit (0.35 mL) subcut QHS #15 mL 09/29/21 Rx mL) subcutaneous pen (Tresiba FlexTouch U-100 insulin) Allergies Allergy/AdvReac Type Severity Reaction Status Date / Time banana Allergy Severe SEVERE Verified 09/28/21 07:28 HIVES acetaminophen [From Tylenol] AdvReac Intermediate Nausea and Verified 09/28/21 07:28 Vomiting aspirin AdvReac Intermediate Nausea and Verified 09/28/21 07:28 Vomiting fluoxetine [From Prozac] AdvReac Hallucinati Verified 09/28/21 07:28 ng Results Labs CBC & Chem 7: 09/15/21 06:23 09/15/21 06:23
[2021-09-14 16:12] LABS: Glucose Point of Care > 450 mg/dl (65-105)
[2021-09-14 16:18] LABS: Glucose Point of Care 420 mg/dl (65-105)
[2021-09-14 16:45] LABS: Glucose 342 mg/dL (70-99)
[2021-09-14] MEDS: SODIUM CHLORIDE 0.9% IV 1,000 ML 100 ML IV CONT (16:47)
--- NOTE | 2021-09-14 18:06 | PC.NURSE ---
Crossing [place] attempted to relocate IV due to positional. Attempted x2 and unsuccessful. Crossing [place] reinforced patient's need to keep arm in good position for IV to run. Patient agreed and IV flowing well at this time.
[2021-09-14 19:05] LABS: Glucose Point of Care 329 mg/dl (65-105)
[2021-09-14 19:38] LABS: Add Urine Microscopic? YES; Appearance Urine Clear (Clear); Bilirubin Urine Negative (Negative); Blood Urine Negative (Negative); Color Urine Light Yellow (Yellow); Glucose Urine UA 3+ (Negative); Ketones Urine 1+ (Negative); Leukocyte Esterase Ur Negative LEU/UL (Negative); Nitrate Urine Negative (Negative); Protein Urine Negative (Negative); Specific Grav Ur 1.015 (1.010-1.020); Urobilinogen Urine 0.2 mg/dL (0.2-1.0)
[2021-09-14 19:44] LABS: Bacteria Urine None seen /hpf; RBC Urine None seen /hpf (0-2); Squamous Epithelial Cell Urine Rare /hpf (Few); WBC Urine None seen /hpf (0-3)
[2021-09-14 20:08] LABS: Anion Gap 5 mmol/L (8-16); Blood Urea Nitrogen 28 mg/dL (7-18); Calcium 9.1 mg/dL (8.5-10.1); Carbon Dioxide 27 mmol/L (21-32); Chloride 105 mmol/L (98-108); Estimated CRCL calculation 49 ml/min; Estimated Glomerular Filt Rate > 60; Glucose 347 mg/dL (70-99); Osmolality Calculated 303 mOsm/kg (285-295); Potassium 4.1 mmol/L (3.5-5.1); Sodium 137 mmol/L (136-145)
[2021-09-14 20:17] LABS: Acetone Negative (Negative)
[2021-09-14] MEDS: traZODone HCL 50 MG TABLET PO (20:30)
[2021-09-14 20:33] LABS: Glucose Point of Care 343 mg/dl (65-105)
[2021-09-14 22:27] LABS: Glucose Point of Care 330 mg/dl (65-105)
[2021-09-15] VITALS: BP 139/79; PULSE 71; RESP 20; TEMP 35.9; O2SAT 97
[2021-09-15 00:34] LABS: Glucose Point of Care 321 mg/dl (65-105)
[2021-09-15] MEDS: SODIUM CHLORIDE 0.9% IV 1,000 ML 100 ML IV CONT ×2 (02:33→11:54)
[2021-09-15 02:35] LABS: Glucose Point of Care 172 mg/dl (65-105)
[2021-09-15 04:38] LABS: Glucose Point of Care 114 mg/dl (65-105)
[2021-09-15 06:28] LABS: Hematocrit 37.5 % (35.0-42.0); Hemoglobin 12.3 g/dL (11.7-13.8); Mean Corpuscular HGB Conc 32.8 g/dL (32.0-36.0); Mean Corpuscular Hemoglobin 31.5 pg (27.0-31.0); Mean Corpuscular Volume 95.9 fL (78.0-102.0); Mean Platelet Volume 8.7 fl (9.2-11.8); Platelet Count Result 288 K/mm3 (150-420); Red Blood Count 3.91 M/mm3 (4.20-5.40); Red Cell Distribution Width 13.2 % (11.6-14.4); White Blood Count 5.1 K/mm3 (4.8-10.8)
[2021-09-15 06:46] LABS: Alanine Aminotransferase 15 U/L (14-59); Albumin Level 2.7 g/dL (3.4-5.0); Alkaline Phosphatase 99 U/L (46-116); Anion Gap 8 mmol/L (8-16); Aspartate Amino Transferase 12 U/L (15-37); Bilirubin,Total 0.4 mg/dL (0.00-1.00); Blood Urea Nitrogen 18 mg/dL (7-18); Calcium 9.2 mg/dL (8.5-10.1); Carbon Dioxide 24 mmol/L (21-32); Chloride 108 mmol/L (98-108); Estimated CRCL calculation 82 ml/min; Estimated Glomerular Filt Rate > 60; Potassium 3.6 mmol/L (3.5-5.1); Sodium 140 mmol/L (136-145); Total Protein 5.6 g/dL (6.4-8.2)
[2021-09-15 06:51] LABS: Glucose 115 mg/dL (70-99); Osmolality Calculated 292 mOsm/kg (285-295)
[2021-09-15 07:45] LABS: Glucose Point of Care 177 mg/dl (65-105)
[2021-09-15 08:00] VITALS: BP 143/88; PULSE 71; RESP 14; TEMP 36.6; O2SAT 97
--- NOTE | 2021-09-15 11:06 | PM.DS ---
DS: Admitting Diagnosis Discharge Date 09/15/2021 Admitting Diagnosis Hyperglycemia, ketones in urine DS: Discharge Diagnosis Discharge Diagnosis (1) Poorly controlled diabetes mellitus: Code(s): E11.65 - Type 2 diabetes mellitus with hyperglycemia Status: Acute (2) Electrolyte abnormality: Code(s): E87.8 - Other disorders of electrolyte and fluid balance, not elsewhere classified Status: Acute (3) Hypothyroidism: Qualifiers: Hypothyroidism type: unspecified Qualified Code(s): E03.9 - Hypothyroidism, unspecified Code(s): E03.9 - Hypothyroidism, unspecified Status: Acute (4) Abdominal pain: Code(s): R10.9 - Unspecified abdominal pain Status: Acute DS: Summary Hospital Course Reason for hospitalization: hyperglycemia, Hospital Course: Patient is insisting on going home Spoke with Brittany KAPOOR PCP who this patient is new to and she is aware patient is going home although she did give the patient the same information about being more active in her care. Appointment already set for patient to follow up , I spoke with Mary who is patient daughter and she informed me that Mrs. Leslie misses her DrRasheeda Appointment and she runs out her medication. Time Spent with Patient Time attestation: Total time spent providing and/or coordinating discharge services: Exam Narrative: GENERAL:Well-appearing, well-nourished, and in no acute distress. HEAD:Normocephalic, atraumatic. EYES: PERRLA and EOMI. ENT: Nares clear, no rhinorrhea or epistaxis. Mucous membranes moist. NECK: Supple. CHEST: Clear to auscultation. No respiratory distress. HEART: Regular rate and rhythm. No murmur heard. Normal peripheral pulses. ABDOMEN: Soft, nontender, nondistended, normal active bowel sounds. EXTREMITIES: Normal range of motion. No edema. SKIN: Warm, dry, no rash. NEURO: No focal deficits. Alert and oriented x3. DS: Data Data Completed and Pending Labs on day of discharge: Labs from last 24 hours 09/15/21 09/15/21 09/15/21 07:40 06:23 06:23 WBC 5.1 RBC 3.91 L Hgb 12.3 Hct 37.5 MCV 95.9 MCH 31.5 H MCHC 32.8 RDW 13.2 Plt Count 288 MPV 8.7 L Immature Gran % (Auto) Neut % (Auto) Lymph % (Auto) [place] % (Auto) Eos % (Auto) Baso % (Auto) Lymph # (Auto) [place] # (Auto) Eos # (Auto) Baso # (Auto) Abs Immat Gran (auto) Absolute Neuts (auto) Absolute Nucleated RBC Nucleated RBC % Sodium 140 Potassium 3.6 Chloride 108 Carbon Dioxide 24 Anion Gap 8 BUN 18 Creatinine 0.37 L Estim Creat Clear Calc 82 Estimated GFR > 60 Glucose 115 H POC Capillary Glucose 177 H Calculated Osmolality 292 Calcium 9.2 Total Bilirubin 0.4 AST 12 L ALT 15 Alkaline Phosphatase 99 Troponin I Total Protein 5.6 L Albumin 2.7 L Beta-Hydroxybutyrate/Acetoacetate Urine Color Urine Appearance Urine pH Ur Specific [place] Urine Protein Urine Glucose (UA) Urine Ketones Ur Blood (Man) Urine Nitrate Urine Bilirubin Urine Urobilinogen Leukocyte Esterase Rfl Urine RBC Urine WBC Ur Squamous Epith Cells Urine Bacteria Hyaline Casts Acetone Level 09/15/21 09/15/21 09/15/21 04:32 02:30 00:29 WBC RBC Hgb Hct MCV MCH MCHC RDW Plt Count MPV Immature Gran % (Auto) Neut % (Auto) Lymph % (Auto) [place] % (Auto) Eos % (Auto) Baso % (Auto) Lymph # (Auto) [place] # (Auto) Eos # (Auto) Baso # (Auto) Abs Immat Gran (auto) Absolute Neuts (auto) Absolute Nucleated RBC Nucleated RBC % Sodium Potassium Chloride Carbon Dioxide Anion Gap BUN Creatinine Estim Creat Clear Calc Estimated GFR Glucose POC Capillary Glucose 114 H 172 H 321 H Calculated Osmolality Calcium Total Bilirubin AST
[2021-09-15 11:40] LABS: Glucose Point of Care 401 mg/dl (65-105)
--- NOTE | 2021-09-15 11:50 | PM.IMHP ---
H&P: HPI History of Present Illness Date/Time: 09/15/21 11:50 Chief Complaint: high blood sugar, lethargic, weakness Narrative: Patient initally declined to stay any longer and discharge process started as we wanted to ensure patient medication and her supplies were taken care of. Patient blood sugar was 401 and she has now agreed to stay . IV initated at this time IVF started Review of Systems Review of Systems: Frequent urination , Weakness, lethargic All systems reviewed & are unremarkable except as noted in HPI and below PMFSH Past Medical History Medical History Back pain Depression Diabetic peripheral neuropathy Fibromyalgia Hypothyroidism Memory change Ovarian cancer At the age of 33, status post hysterectomy. Patient states that half an ovary was left during surgery. She required no further treatment. Pneumonia due to COVID-19 virus (~09/2020) Restless leg syndrome Shingles Type 2 diabetes mellitus Hemoglobin A1c was > 14% 04/09/2021 C-peptide 0.63. Surgical History Surgical History History of tonsillectomy (~1970) History of total hysterectomy with bilateral salpingo-oophorectomy (BSO) (~1983) History of tubal ligation (~1983) Family History Family History Grandparent Family history of premature coronary heart disease, Onset Age: 64 Father Family history of respiratory disorder, Onset Age: 87 Family history of cardiovascular disease Patient's father is Family history of Alzheimer's disease Cerebrovascular accident Mother Family history of primary malignant neoplasm of liver, Onset Age: 64 Family history of malignant neoplasm Patient's mother is , Onset Age: 64 Family history of malignant neoplasm of breast in first degree relative Sibling Heart attack Sibling Heart attack Social History Social History Social History: The patient is . She lives in her own home in [place], [place]. She does not work. She has 2 daughters, and designates her daughter Jose Posey, as her surrogate decision maker. She wishes to be a do not resuscitate. She is a lifelong nonsmoker. She drinks perhaps 4-12 alcoholic beverages a week. No drug use. Smoking status: Never smoker Second hand tobacco smoke exposure: No Alcohol intake: current Drinks per week: 4 Substance use: never Substance use type: does not use Other substance usage details: denies Sexual Orientation (if Verbalized by the Patient): Straight or Heterosexual Spiritual care concerns: No Comments At time as signature, I have reviewed and agree with nursing past medical, social, surgical and family history. Please see nursing chart for further information. There is no relevant family history pertinent to the presenting complaint. Meds Home Medications and Allergies Home Medications Medication Instructions Recorded Confirmed Type dulaglutide 0.75 mg/0.5 mL 0.75 mg (0.5 mL) subcut WEEKLY #2 09/14/21 09/14/21 Rx subcutaneous pen injector mL (Trulicity) insulin aspart U-100 100 unit/mL See Rx Instructions .Route 09/14/21 09/14/21 Rx (3 mL) subcutaneous pen (Novolog .COMPLEX 30 days #3 mL Flexpen U-100 Insulin aspart) miconazole nitrate 4 % (200 mg)-2 See Rx Instructions vaginal 09/14/21 09/14/21 Rx % (9 gram)vaginal,prefill .COMPLEX #24 grams appl,cream (Miconazole-3) insulin degludec 100 unit/mL (3 35 unit (0.35 mL) subcut QHS #15 mL 09/15/21 Rx mL) subcutaneous pen (Tresiba FlexTouch U-100 insulin) Allergies Allergy/AdvReac Type Severity Reaction Status Date / Time banana Allergy Severe SEVERE Verified 09/14/21 10:57 HIVES acetaminophen [From Tylenol] AdvReac Intermediate Nausea and Verified 09/14/21 10:57 Vomit
[2021-09-15] MEDS: FLUCONAZOLE 100 MG TABLET 150 MG PO (12:30)
--- NOTE | 2021-09-15 15:31 | PC.NURSE ---
Patient put insolvency practitioner light to use toilet. responded immediately but upon entering room patient was squatting over trash can urinating. After consulting with charge nurse placed bedside commode in patient's bed. Reminder given to continue to use call light
[2021-09-15 16:00] VITALS: BP 128/72; PULSE 78; RESP 18; TEMP 36.6; O2SAT 95
[2021-09-15 16:38] LABS: Glucose Point of Care 375 mg/dl (65-105)
--- NOTE | 2021-09-15 17:51 | PC.NURSE ---
1700 patient upset. claims she has been here over 3 days and had an i-pad sitting on table and now it is gone. explained that she has only been here a little over 24 hours. looked everywhere in room. in bedsheets. under bed. closet. purse. no luck. explained it is not on admission belongings sheet. wants doctor called and wants to leave.
--- NOTE | 2021-09-15 18:29 | PC.NURSE ---
Osman Kent, Hospitalist and Alcides Kent, Nursing carding supervisor notified of patient concerns.
--- NOTE | 2021-09-15 18:53 | PC.NURSE ---
1840 patient iv out. dc orders went over but has no interest in listening. explained that her meds are the pharmacy and ready to picked up. refuses to ride in wc. left on her own accord.
--- NOTE | 2021-09-15 19:07 | PC.NURSE ---
1904 daughter called here and explained that mother was discharged and why she wanted to leave. daughter claims that she is sorry for her actions and that she has her i-pad at home.
--- NOTE | 2021-09-16 08:46 | PCCCNOTE ---
Spoke to Body Shop Mechanic from [facility] Simona Frances. Simona states Karly has been seen multiple times while a IP. She feels there is a underlying issue with pt such as dementia, alcohol abuse or psych that prevents pt from understanding or following instructions. Simona will reach out to Dr. Olguin office for OP orders and communicate her concerns with them.
--- NOTE | 2021-09-16 09:00 | PCCDE ---
Spoke with Annette from care coordination this am. Pt is familiar from previous admits at [place]. Pt was discharged yesterday. Faxed referral request to pt's PCP for OP DSMT.
--- NOTE | 2021-09-16 09:23 | PM.SD2 ---
Same Day Admit/Disch: HPI History of Present Illness Chief complaint: HYPERGLYCEMIA Narrative: Karly Leslie is a 71 year old female that came in from her PCP office due to High blood sugar and feeling weak. Patient initially declined to stay any longer and discharge process started as we wanted to ensure patient medication and her supplies were taken care of. Patient blood sugar was 401 and she has now agreed to stay . IV initated at this time IVF started. Patient was admitted with Hyperglycemia and weakness she was started on IV fluids and we started her with accu check and giving her Insulin. Patient started to feel better and has continued to improve Long discussion with patient about participating her her health otherwise she is going to cause damage to her organ and she will from complication . Patient was recently in Intensive Care due to DKA she has been noncompliant and has switched PCP. Patient currently is having difficulties with home situation and rental assistance application has been given to her. Patient was needing to stay due to her blood sugar continues to rise but patient wanted to sign out ama. I did convince her to stay but once I was gone for the day patient left. Patient medication have all been ordered so she has enough medication and she can have a opportunity to get her medication . I have placed a order for a para educator to see patient at home or set up a outpatient appointment. Mrs. Leslie has been able to eat and drink without any difficulties, she is alert and orientated and able to follow direction. Mrs Leslie PCP has been called and notified of her admission and need for close followup. Spoke with Brittany mathis NP who informed me this was the first time she has saw the patient and that she also had a long discussion with patient informing her of the risk and that she could cause herself damage to her organ and with complication could cause . Spoke with patient daughter Mary who informed me she does remind her mother to take medication but she does not always listen to her. Mary also informed me her mother is out of medication due to she misses so many of her doctors appointments that they will not order medication until she comes in . Patient stayed for a little while after she initially said she was going to stay and then decided that she was not going to stay any longer. ON LICENSE OF [facility] Past Medical History Medical History Back pain Depression Diabetic peripheral neuropathy Fibromyalgia Hypothyroidism Memory change Ovarian cancer At the age of 33, status post hysterectomy. Patient states that half an ovary was left during surgery. She required no further treatment. Pneumonia due to COVID-19 virus (~09/2020) Restless leg syndrome Shingles Type 2 diabetes mellitus Hemoglobin A1c was > 14% 04/09/2021 C-peptide 0.63. Surgical History Surgical History History of tonsillectomy (~1970) History of total hysterectomy with bilateral salpingo-oophorectomy (BSO) (~1983) History of tubal ligation (~1983) Family History Family History Grandparent Family history of premature coronary heart disease, Onset Age: 64 Father Family history of respiratory disorder, Onset Age: 87 Family history of cardiovascular disease Patient's father is Family history of Alzheimer's disease Cerebrovascular accident Mother Family history of primary malignant neoplasm of liver, Onset Age: 64 Family history of malignant neoplasm Patient's mother is , Onset Age: 64 Family history of malignant neoplasm of breast in first degree relative Sibling Heart attack Sibling Heart attack Social History Social History Social History: The patient is . She lives
--- NOTE | 2021-09-16 15:39 | PC.NURSE ---
Pt states she received and understood her discharge instructions. Pt has no other comments.
== END 2021-09-15 18:40 | disposition home or self-care (01) | DRG 638 ==
LOC: CHSED 12:40 → CHS2ND 13:14
PROVIDERS: Nurse Practitioner; Admitting Provider Internal Medicine; Emergency Provider Emergency Medicine; PCP Family Medicine; Visit Provider Internal Medicine
DX: E11.65 Type 2 diabetes mellitus with hyperglycemia (principal); E11.40 Type 2 diabetes mellitus with diabetic neuropathy, unspecified; N39.0 Urinary tract infection, site not specified; M79.7 Fibromyalgia; E03.9 Hypothyroidism, unspecified; G25.81 Restless legs syndrome; F32.A Depression, unspecified; Z85.43 Personal history of malignant neoplasm of ovary; E11.42 Type 2 diabetes mellitus with diabetic polyneuropathy; Z90.710 Acquired absence of both cervix and uterus; Z91.19 Patient's noncompliance with other medical treatment and regimen
CPT/HCPCS: 36415; 80048; 80053; 81001; 82010; 82947; 82948; 84484; 85025; 85027; 93005; 96361; 96374; 96375; 96376; 99285; A9270; J1815; J2060; J7030

== ENCOUNTER 2021-11-30 06:24 | Outpatient (RCR) | payer MEDICARE, OTHER, SELFPAY | END 2022-02-16 11:33 | disposition home or self-care (01) | LOC: ANHDMC 06:24 | PROVIDERS: Visit Provider Nurse Practitioner Family | DX: E11.65 Type 2 diabetes mellitus with hyperglycemia (principal) | CPT/HCPCS: 99199 ==

== ENCOUNTER 2021-12-10 19:05 | Emergency (ER) | payer MEDICARE, OTHER, SELFPAY ==
--- NOTE | ~2021-12-10 | XR_ITS ---
EXAMINATION: XR chest 1V portable INDICATION: Attempted central line insertion TECHNIQUE: Portable AP chest at 1057 hours COMPARISON: 08/31/2021 FINDINGS: The lungs are free of acute opacities. No pleural effusion or pneumothorax. The cardiomedia stinal silhouette is stable. A calcified right lower paratracheal lymph node is consistent with old g ranulomatous disease. IMPRESSION: 1. No acute cardiopulmonary abnormality. Reviewed, dictated and finalized at location F.
--- NOTE | ~2021-12-10 | CT_ITS ---
EXAMINATION: CT abdomen pelvis wo con DATE: 12/10/2021 23:39 INDICATION: Low abdominal pain. Low back pain. TECHNIQUE: Computed tomography (CT) of the abdomen and pelvis was performed without intravenous contr ast. Automated exposure control and iterative reconstruction technique were employed. The dose-length product was 380.52 mGy-cm. COMPARISON: CT abdomen and pelvis 06/13/2021 FINDINGS: The visualized portions of the lung bases demonstrate minimal atelectasis. No pleural effus ion. The heart size is normal. No pericardial effusion. The liver, gallbladder, spleen, pancreas, adr enal glands, and kidneys are normal. There is no urolithiasis. There are no dilated loops of bowel. T here is a large volume of stool in the colon. The appendix is normal. The stomach is distended and pr edominantly fluid-filled. There are no pathologically enlarged lymph nodes. There is no free intraper itoneal fluid. There is severe thoracic spondylosis and mild lumbar spondylosis. IMPRESSION: 1. Large volume of stool in the colon. 2. Distended stomach. Reviewed, dictated and finalized at location A.
--- NOTE | 2021-12-10 19:13 | ED.FEMALEGU ---
HPI - Female Genitourinary General Chief complaint: Back Pain/Injury Stated complaint: ambulance Time Seen by Provider: 12/10/21 19:11 Source: patient, EMS and RN notes reviewed Mode of arrival: EMS History of Present Illness Pertinent past history: recurrent UTIs and urinary incontinence Onset (ago): day(s) (2) Location of symptoms: low back Severity: moderate Female Urogenital Radiation: L Flank and R Flank Quality of pain: dull and aching Consistency: constant Vaginal discharge: none Vaginal bleeding: none Exacerbating factors: urination Relieving factors: none Treatment prior to arrival: none Related Data Home Medications Medication Instructions Recorded Confirmed dulaglutide 0.75 mg/0.5 mL 0.75 mg subcut WEEKLY 12/10/21 12/11/21 subcutaneous pen injector (Trulicity) insulin glargine 100 unit/mL 35 unit subcut HS 12/11/21 12/11/21 subcutaneous solution (Lantus U-100 Insulin) pramipexole 1.5 mg tablet 3 mg PO HS 12/11/21 12/11/21 Allergies Allergy/AdvReac Type Severity Reaction Status Date / Time banana Allergy Severe SEVERE Verified 12/10/21 19:24 HIVES acetaminophen [From Tylenol] AdvReac Intermediate Nausea and Verified 12/10/21 19:24 Vomiting aspirin AdvReac Intermediate Nausea and Verified 12/10/21 19:24 Vomiting fluoxetine [From Prozac] AdvReac Hallucinati Verified 12/10/21 19:24 ng Review of Systems Review of Systems: All systems reviewed & are unremarkable except as noted in HPI and below Constitutional: Constitutional: Denies chills and Denies fatigue PMF Past Medical History Medical History (Updated 12/11/21 @ 09:38 by Martha Winslow MD) Back pain Depression Diabetic peripheral neuropathy Fibromyalgia Hypothyroidism Memory change Ovarian cancer At the age of 33, status post hysterectomy. Patient states that half an ovary was left during surgery. She required no further treatment. Pneumonia due to COVID-19 virus (~09/2020) Restless leg syndrome Shingles Type 2 diabetes mellitus Hemoglobin A1c was > 14% August 2021 C-peptide 0.63. Surgical History Surgical History History of tonsillectomy (~1970) History of total hysterectomy with bilateral salpingo-oophorectomy (BSO) (~1983) History of tubal ligation (~1983) Family History Family History Grandparent Family history of premature coronary heart disease, Onset Age: 64 Father Family history of respiratory disorder, Onset Age: 87 Family history of cardiovascular disease Patient's father is Family history of Alzheimer's disease Cerebrovascular accident Mother Family history of primary malignant neoplasm of liver, Onset Age: 64 Family history of malignant neoplasm Patient's mother is , Onset Age: 64 Family history of malignant neoplasm of breast in first degree relative Sibling Heart attack Sibling Heart attack Social History Social History (Updated 12/11/21 @ 03:34 by Carmen Najera DO) Social History: The patient is . She lives in her own home in [place], [place] with her daughter Jose. She does not work. She has 2 daughters, and designates her daughter Jose Posey, as her surrogate decision maker. She wishes to be a do not resuscitate. She is a lifelong nonsmoker. She drinks perhaps 4-12 alcoholic beverages a week. No drug use. Smoking status: Never smoker Second hand tobacco smoke exposure: No Alcohol intake: current Drinks per week: 4 Substance use: never Substance use type: does not use Other substance usage details: denies Sexual Orientation (if Verbalized by the Patient): Straight or Heterosexual Spiritual care concerns: No Exam Const: General: no acute distress, alert and ill appearing chronically Nutritional Appearance: well nourished and thin Orientation/consciousness: patient oriente
[2021-12-10 19:36] VITALS: BP 137/74; PULSE 95; RESP 20; TEMP 36.8; O2SAT 100
[2021-12-10 20:00] LABS: Basophils Absolute Auto 0.05 K/mm3 (0.00-0.10); Basophils Percent Auto 0.6 % (0.0-1.0); Eosinophils Absolute Auto 0.03 K/mm3 (0.02-0.50); Eosinophils Percent Auto 0.4 % (1.0-6.0); Immature Granulocyte Absolute 0.05 K/mm3 (0.00-0.00); Immature Granulocyte Percent A 0.6 % (0.0-0.0); Lymphocytes Absolute Auto 1.23 K/mm3 (1.10-4.50); Lymphocytes Percent Auto 15.9 % (18.0-42.0); Mean Corpuscular HGB Conc 30.4 g/dL (32.0-36.0); Mean Corpuscular Hemoglobin 30.8 pg (27.0-31.0); Mean Corpuscular Volume 101.3 fL (78.0-102.0); Mean Platelet Volume 9.7 fl (9.2-11.8); Monocytes Absolute Auto 0.41 K/mm3 (0.10-0.90); Monocytes Percent Auto 5.3 % (2.0-11.0); Neutrophils Percent Auto 77.2 % (50.0-70.0); Platelet Count Result 413 K/mm3 (150-420); Red Blood Count 4.54 M/mm3 (4.20-5.40); Red Cell Distribution Width 12.9 % (11.6-14.4); White Blood Count 7.8 K/mm3 (4.8-10.8)
[2021-12-10 20:18] LABS: Base Excess ABG -22.7 mmol/L (0-2); HCO3 ABG 4.5 mmol/L (23-29); Oxygen Content ABG 20.1 %vol (16.0-22.0); Oxygen Saturation ABG 97.4 % (95-97); Oxyhemoglobin 96.6 % (94-100); PO2 ABG 115.6 mmHg (75-85); Total Hemoglobin 14.7 g/dL (12.0-18.0); pH ABG 7.11 (7.35-7.45)
[2021-12-10 20:20] LABS: Device NASAL CANNULA; Modified Allen's Test Pass; PCO2 ABG 14.5 mmHg (35-45); Site Drawn LEFT RADIAL
[2021-12-10 20:21] LABS: Lactic Acid Reflex 0.4 mmol/L (0.4-2.0)
[2021-12-10 20:25] LABS: Alanine Aminotransferase 8 U/L (14-59); Albumin Level 3.9 g/dL (3.4-5.0); Alkaline Phosphatase 109 U/L (46-116); Anion Gap 29 mmol/L (8-16); Aspartate Amino Transferase 10 U/L (15-37); Bilirubin,Total 0.4 mg/dL (0.00-1.00); Blood Urea Nitrogen 27 mg/dL (7-18); Calcium 10.8 mg/dL (8.5-10.1); Carbon Dioxide 6 mmol/L (21-32); Chloride 98 mmol/L (98-108); Estimated CRCL calculation 34 ml/min; Estimated Glomerular Filt Rate 56; Magnesium 2.6 mg/dL (1.8-2.4); Sodium 133 mmol/L (136-145); Total Protein 7.4 g/dL (6.4-8.2)
[2021-12-10 20:28] LABS: CRP < 0.2 mg/dL (0.0-0.9); Glucose 531 mg/dL (70-99); Osmolality Calculated 305 mOsm/kg (285-295)
[2021-12-10] MEDS: KETOROLAC 30 MG/ML VIAL (*BKC) IM (20:31)
[2021-12-10 21:03] LABS: Appearance Urine Clear (Clear); Bilirubin Urine Negative (Negative); Glucose Urine UA 2+ (Negative); Ketones Urine 3+ (Negative); Leukocyte Esterase Ur Negative LEU/UL (Negative); Nitrate Urine Negative (Negative); Protein Urine Trace (Negative); Specific Grav Ur >= 1.030 (1.010-1.020); Urobilinogen Urine 0.2 mg/dL (0.2-1.0)
[2021-12-10 21:10] LABS: Add Urine Microscopic? YES; Bacteria Urine Trace /hpf; Blood Urine Trace-Intact (Negative); Color Urine Light Yellow (Yellow); Squamous Epithelial Cell Urine Rare /hpf (Few); WBC Urine 0-3 /hpf (0-3)
--- NOTE | 2021-12-10 21:10 | PC.NURSE ---
Kulwinder Gannon had 3 unsuccessful attempts to insert an IV and KULWINDER Meadows had 3 unsuccessful attempts to insert an IV. MD Stinson informed and requested that pt be placed in Trendelenburg for possible IJ/EJ IV placement.
--- NOTE | 2021-12-10 21:41 | PC.NURSE ---
MD Stinson attempted to insert EJ bilaterally unsuccessfully.
--- NOTE | 2021-12-10 22:00 | PC.NURSE ---
SAMMY Acuna attempted to insert an IV with two unsuccessful attempts.
--- NOTE | 2021-12-10 22:08 | PC.NURSE ---
this staff member obtained signed consent for central line placement.
[2021-12-10] MEDS: INSULIN HUMAN REGULAR (*BKC) 100 UNITS/ML 6 UNITS IV PUSH (22:59)
[2021-12-10] MEDS: LACTATED RINGERS 1,000 ML 999 ML IV CONT (23:00)
--- NOTE | 2021-12-10 23:04 | PC.NURSE ---
zakia director field services paged for ERP
[2021-12-10] MEDS: LIDO 1%/EPINEPHRINE 1:100,000 20 ML VIAL (23:05)
[2021-12-10 23:08] VITALS: O2SAT 93
[2021-12-10 23:10] VITALS: BP 168/69; PULSE 121; RESP 21; O2SAT 100
[2021-12-10] MEDS: INSULIN REG 100 UNITS/100 ML 100 UNITS/100 ML BAG IV CONT (23:16)
--- NOTE | 2021-12-10 23:24 | PC.NURSE ---
Sumit supervisor enrobing Donya called to provide transfer information. pt to be admitted into ICU 3 and nurse to nurse report to SAMMY Hedrick at [phone]
--- NOTE | 2021-12-10 23:43 | PC.NURSE ---
LR bolus rated reduced to 200ml/hr due to IO occlusion pump error. Md Stinson updated; infuse as quickly as possible.
[2021-12-10] MEDS: SODIUM BICARBONATE 8.4% 50 MEQ/50 ML SYRINGE 59 MEQ IV PUSH (23:50)
[2021-12-11] VITALS: BP 142/104; PULSE 141; RESP 20; O2SAT 99
[2021-12-11 00:06] LABS: Glucose Point of Care > 450 mg/dl (65-105)
[2021-12-11 00:15] VITALS: BP 158/88; PULSE 149; RESP 22; O2SAT 97
[2021-12-11 00:30] VITALS: BP 141/91; PULSE 149; RESP 21; O2SAT 96
--- NOTE | 2021-12-11 00:31 | PC.NURSE ---
nurse to nurse report called to SAMMY Hedrick at [facility]
[2021-12-11] MEDS: MIDAZOLAM HCL (*CRX) 2 MG/2 ML VIAL 1 MG IV PUSH (00:38)
[2021-12-11 00:45] VITALS: BP 135/83; PULSE 152; RESP 18; O2SAT 100
--- NOTE | 2021-12-11 00:48 | PC.NURSE ---
Contacted [facility] for ALS patient transfer
[2021-12-11 00:53] LABS: Glucose Point of Care > 450 mg/dl (65-105)
--- NOTE | 2021-12-11 01:01 | PC.NURSE ---
Insulin infusion paused Md Stinson for patient transport by EMS, SAMMY jeffrey at [place] updated.
--- NOTE | 2021-12-11 01:23 | PC.NURSE ---
[facility] 1000ml at 999ml/hr via gravity in IO. Insulin infusion disconnected with 92ml remaining; insulin bag being transported with patient. SAMMY Hedrick at [facility] contacted and updated.
[2021-12-11 01:29] VITALS: BP 148/82; PULSE 137; RESP 20; TEMP 36.8; O2SAT 98
== END 2021-12-11 01:34 | disposition short-term general hospital (02) ==
PROVIDERS: Emergency Provider Emergency Medicine
DX: E11.10 Type 2 diabetes mellitus with ketoacidosis without coma (principal); E03.9 Hypothyroidism, unspecified; G25.81 Restless legs syndrome; Z79.4 Long term (current) use of insulin
CPT/HCPCS: 36415; 36556; 36600; 36680; 71045; 74176; 80053; 81001; 82805; 82948; 83605; 83735; 85025; 86140; 96365; 96372; 96375; 99291; C1751; J1815; J1885; J2250; J7120

== ENCOUNTER 2021-12-11 01:36 | Inpatient (IN) | payer MEDICARE, SELFPAY ==
[2021-12-11] VITALS (12 sets, daily range): BP systolic 89–135; BP diastolic 51–84; PULSE 73–137; RESP 15–24; TEMP 36.8–37.4; O2SAT 97–100; BMI 23.1
--- NOTE | ~2021-12-11 | XR_ITS ---
EXAMINATION: XR chest PICC line DATE: 12/11/2021 12:07 INDICATION: Central line placement. TECHNIQUE: A single frontal view of the chest was obtained. COMPARISON: Chest single view 12/10/2021 FINDINGS: Calcified pulmonary nodules and calcified hilar and mediastinal lymph nodes are consistent with old granulomatous disease. There is mild atelectasis in left lower lung zone. No pleural effusio n or pneumothorax. The heart is normal. A right upper extremity peripherally inserted central venous catheter (PICC) is seen with tip at the superior cavoatrial junction. IMPRESSION: 1. PICC tip at superior cavoatrial junction. Reviewed, dictated and finalized at location A.
--- NOTE | 2021-12-11 02:00 | PC.NURSE ---
Addendum entered by Floridalma Muñoz RN 12/11/21 03:50: Patient received as direct admit from [facility]. Report received from Jagdeep CHRISTIANSON at 0030. Original Note: This patient, Karly Leslie, was admitted to Intensive Care Unit-3. Patient/family oriented to hospital policies and general routines including ID bracelet, bed and alarms, visiting hours, pain management, procedures, bathroom and other care routines, personal items, smoking policy, room service/diet, and visiting hours. Information on how to activate the Rapid Response Team has been discussed. Patient/Family are encouraged to report perceived risks to care and to ask questions if they do not understand what they are told or what they should do.
[2021-12-11 02:04] LABS: Glucose Point of Care 477 mg/dl (65-105)
[2021-12-11 02:26] LABS: Hemoglobin 14.3 g/dL (12.0-15.0); Immature Platelet Fraction Pct 4.6 % (0.9-11.2); Mean Corpuscular HGB Conc 30.4 g/dl (32-36); Mean Corpuscular Hemoglobin 31.3 pg (26-34); Mean Corpuscular Volume 102.8 fl (80-100); Red Blood Count 4.57 M/mm3 (4.2-5.4); Red Cell Distribution Width 13.2 % (11.5-14.5); White Blood Count 16.4 K/mm3 (4.5-10.0)
[2021-12-11 02:36] LABS: Anion Gap 32 mmol/L (8-16); Blood Urea Nitrogen 30 mg/dL (7-17); Calcium 10.8 mg/dL (8.4-10.2); Carbon Dioxide 6 mmol/L (22-30); Chloride 100 mmol/L (98-107); Estimated CRCL calculation 37 ml/min; Estimated Glomerular Filt Rate > 60; Glucose 461 mg/dL (65-110); Magnesium 2.2 mg/dL (1.6-2.3); Potassium 5.7 mmol/L (3.4-5.0); Sodium 138 mmol/L (137-145)
[2021-12-11] MEDS: SODIUM CHLORIDE 0.9% IV 1,000 ML 999 ML IV CONT ×3 (02:37→12:18)
[2021-12-11] MEDS: INSULIN HUMAN REGULAR (*BKC) 100 UNITS in SODIUM CHLORIDE 0.9% IV 99 ML 8.3 UNITS IV CONT (02:41)
--- NOTE | 2021-12-11 02:42 | PM.IMHP ---
H&P: HPI History of Present Illness Date/Time: 12/11/21 02:42 Chief Complaint: Back pain, mouth pain Narrative: 71-year-old female with a past medical history of chronically uncontrolled insulin-dependent diabetes due to medication noncompliance, hypertension, diabetic peripheral neuropathy, chronic pain and diabetic nephropathy who presented to the ER at [place] via EMS due to complaints of back pain. However by the time patient arrived to our facility the patient states her chief complaint was mouth pain. The patient then reports that she has just been hurting all over. On arrival to [place] the patient was noted to be hyperglycemic with a glucose of 531, and anion gap of 29 and BUN of 27 her urine specific gravity was greater than 1.03 with trace protein 2+ glucose and 3+ ketones her ABG demonstrated profound metabolic acidosis with a pH of 7.1 and a pCO2 of 14. She was tachypneic and tachycardic with heart rate in the 120s to 140s. EKG demonstrates sinus tachycardia. The patient reports that she has not taken her insulin in several days. She states that she had run out of her insulin and could not remember who her physician was to contact. She also told me that she could not remember pharmacy. But then she told nursing staff that she called her pharmacy and they would not give her refills. The patient also tells me that she is re decorating her room so she lost her glucometer. Although if my memory does not fail me patient has provided similar responses in the past. The patient reports increased urinary frequency and in fact she had urinated 1 L of urine in the bedside commode on arrival to the ICU. At the outside facility they had difficulty placing IV access and patient subsequently did not receive insulin and IV fluids until several hours into her ER stay. I had requested the patient receive at least 3 L of IV fluids but the patient is still only had her 1 L infusing at the time of her arrival because patient was screaming out in pain with anything infusing through the IO. She denies having any nausea, vomiting or changes in bowel habits. She denies any dysuria, hematuria fevers. She has generally been feeling weak and complains of pain all over. She reports that her chief complaint to me was mouth pain from where she has a fractured tooth that is cutting her tongue. She also reported low back pain which on physical exam was more consistent with SI joint tenderness. She denies any chest pain or shortness of breath. She complains of restless leg symptoms and is requesting her meds for such. Review of Systems Review of Systems: 12 systems were reviewed with pertinent positives and negatives per HPI. Except as documented in the HPI, all other systems were reviewed and are negative. [facility]LY [facility] Past Medical History Medical History (Updated 12/11/21 @ 03:32 by Carmen Najera DO) Back pain Depression Diabetic peripheral neuropathy Fibromyalgia Hypothyroidism Memory change Ovarian cancer At the age of 33, status post hysterectomy. Patient states that half an ovary was left during surgery. She required no further treatment. Pneumonia due to COVID-19 virus (~09/2020) Restless leg syndrome Shingles Type 2 diabetes mellitus Hemoglobin A1c was > 14% August 2021 C-peptide 0.63. Surgical History Surgical History History of tonsillectomy (~1970) History of total hysterectomy with bilateral salpingo-oophorectomy (BSO) (~1983) History of tubal ligation (~1983) Family History Family History Grandparent Family history of premature coronary heart disease, Onset Age: 64 Father Family history of respiratory disorder, Onset Age: 87 Family history of cardiovascular disease Patient's father is Family history of Alzheimer's disease Cerebrovascular accident Mother Family history of primary malignant neop
[2021-12-11] MEDS: LIDOCAINE HCL 2% PF INJ 5 ML VIAL 2 ML XX (02:47)
[2021-12-11] MEDS: PRAMIPEXOLE 1 MG TABLET 3 MG PO ×2 (03:32→21:16)
[2021-12-11] MEDS: SODIUM CHLORIDE 0.9% IV 1,000 ML 150 ML IV CONT (03:33)
[2021-12-11 03:38] LABS: Glucose Point of Care 445 mg/dl (65-105)
[2021-12-11 04:01] LABS: Glucose Point of Care 417 mg/dl (65-105)
[2021-12-11] MEDS: IBUPROFEN 600 MG TABLET PO (04:15)
[2021-12-11 04:22] LABS: Band Neutrophils Percent 2 % (0-6); Lymphocytes Absolute Manual 0.98 K/mm3 (1.1-4.5); Lymphocytes Percent Manual 6 % (18-44); Monocytes Absolute Manual 1.14 K/mm3 (0.1-0.90); Monocytes Percent Manual 7 % (3-9); Neutrophils Absolute Manual 14.26 K/mm3 (1.7-7.2); Neutrophils Percent Manual 85 % (46-73); Total Cells Counted 100
[2021-12-11 04:23] LABS: Macrocytosis 1+ (NORMAL); Schistocytes None Seen (NORMAL)
[2021-12-11 05:14] LABS: Glucose Point of Care 268 mg/dl (65-105)
[2021-12-11 06:13] LABS: Glucose Point of Care 219 mg/dl (65-105)
[2021-12-11] MEDS: KCL 20 MEQ/D5/0.45% SOD CHL 1,000 ML 150 ML IV CONT ×2 (06:13→13:31)
[2021-12-11 07:08] LABS: Glucose Point of Care 200 mg/dl (65-105)
[2021-12-11 07:34] LABS: Anion Gap 19 mmol/L (8-16); Blood Urea Nitrogen 24 mg/dL (7-17); Calcium 9.6 mg/dL (8.4-10.2); Carbon Dioxide 9 mmol/L (22-30); Chloride 111 mmol/L (98-107); Estimated CRCL calculation 53 ml/min; Estimated Glomerular Filt Rate > 60; Glucose 214 mg/dL (65-110); Sodium 139 mmol/L (137-145)
[2021-12-11 08:10] LABS: Glucose Point of Care 203 mg/dl (65-105)
[2021-12-11] MEDS: ENOXAPARIN 40 MG/0.4 ML SYRINGE SUB-Q (09:05)
[2021-12-11 09:11] LABS: Glucose Point of Care 197 mg/dl (65-105)
--- NOTE | 2021-12-11 09:22 | WPDCNINT ---
Assessment and Plan Assessment and plan (1) DKA (diabetic ketoacidosis): Qualifiers: Diabetes mellitus complication detail: without coma Diabetes mellitus type: type 2 Qualified Code(s): E11.10 - Type 2 diabetes mellitus with ketoacidosis without coma Code(s): E11.10 - Type 2 diabetes mellitus with ketoacidosis without coma Status: Acute Assessment and Plan: Patient presented the outside hospital with back pain, urine incontinence, pain all over -was found to have elevated blood sugars of 531, anion gap of 29, was diagnosed with DKA, given 2 L IV fluids, insulin infusion per DKA protocol. -will give additional IV fluid bolus this morning -continue insulin infusion for now -will transition to long-acting insulin and sliding scale insulin once her anion gap closes -recent hemoglobin A1c on 08/31/2021 was >14.0 (2) Hypothyroidism: Qualifiers: Hypothyroidism type: unspecified Qualified Code(s): E03.9 - Hypothyroidism, unspecified Code(s): E03.9 - Hypothyroidism, unspecified Status: Acute Assessment and Plan: TSH normal (3) Depression: Code(s): F32.A - Depression, unspecified Status: Acute Assessment and Plan: hold PO meds while she is NPO (4) Venous insufficiency: Code(s): I87.2 - Venous insufficiency (chronic) (peripheral) Status: Acute Assessment and Plan: Will place PICC line (5) Restless leg syndrome: Code(s): G25.81 - Restless legs syndrome Status: Acute Assessment and Plan: Prami Plan DVT prophylaxis:lovenox Stress ulcer prophylaxis: Not applicable Nutrition: NPO Code Status: DNR Critical Care Time Spent: 44 minutes Due to a high probability of clinically significant, life threatening deterioration, the patient required my highest level of preparedness to intervene emergently and I personally spent this critical care time directly and personally managing the patient. This critical care time included obtaining a history; examining the patient; pulse oximetry; ordering and review of studies; arranging urgent treatment with development of a management plan; evaluation of patient's response to treatment; frequent reassessment; and discussions with other providers. It was exclusive of separately billable procedures and treating other patients and teaching time. Please see Assessment and Plan section and the rest of the note for further information on patient assessment and treatment Claims Support Specialist Consult Note Consult date: 12/11/21 Reason for consult: Diabetic ketoacidosis, urinary incontinence, back pain HPI: Karly Leslie is a 71 year old female past medical history diabetes type 2, diabetic neuropathy, hypothyroidism history of ovarian cancer in his 80s 33 status post hysterectomy, pneumonia secondary to COVID in September 2020, restless leg syndromes, shingles, fibromyalgia, depression presented the ED at the outside [facility] in [facility] with complains of back pain, increased urinary incontinence. In the ER she was complaining of pain all over. She was found to have hyperglycemia with a glucose of 531, anion gap of 29. ABG showed a pH of 7.21 and pCO2 of 14p patient was tachycardic with heart rates in the 120-140. According the records she stated she has not been taking her insulin in several days and that she had ran out of it. Patient did complain of increased urinary frequency. At the outside hospital they had difficulty with IV access and an IO line was inserted in the right tibia. Patient was transferred [facility] ICU for further management. They will manage to get a small 22 gauge IV line, patient was given IV fluid bolus and started on insulin infusion per DKA protocol. Patient seen and examined the ICU is awake, alert, oriented x3. Patient does go back to sleep is she has had a long night. She denies any shortness of breath, chest pain, abdominal pain, vomiting at this time. Rik
[2021-12-11 10:09] LABS: Glucose Point of Care 183 mg/dl (65-105)
[2021-12-11 10:14] LABS: Anion Gap 11 mmol/L (8-16); Blood Urea Nitrogen 24 mg/dL (7-17); Calcium 9.4 mg/dL (8.4-10.2); Carbon Dioxide 12 mmol/L (22-30); Chloride 112 mmol/L (98-107); Estimated CRCL calculation 63 ml/min; Estimated Glomerular Filt Rate > 60; Glucose 182 mg/dL (65-110); Potassium 4.1 mmol/L (3.4-5.0); Sodium 135 mmol/L (137-145)
[2021-12-11] MEDS: ONDANSETRON INJ 4 MG/2 ML VIAL IV PUSH (10:43)
[2021-12-11] MEDS: INSULIN HUMAN REGULAR (*BKC) 100 UNITS in SODIUM CHLORIDE 0.9% IV 99 ML 12.3 UNITS IV CONT (11:04)
[2021-12-11 11:16] LABS: Glucose Point of Care 167 mg/dl (65-105)
[2021-12-11 12:26] LABS: Glucose Point of Care 137 mg/dl (65-105)
[2021-12-11 13:38] LABS: Glucose Point of Care 85 mg/dl (65-105)
--- NOTE | 2021-12-11 14:07 | PM.IMPN ---
Progress Note: A&P Assessment and Plan (1) DKA (diabetic ketoacidosis): Qualifiers: Diabetes mellitus complication detail: without coma Diabetes mellitus type: type 2 Qualified Code(s): E11.10 - Type 2 diabetes mellitus with ketoacidosis without coma Code(s): E11.10 - Type 2 diabetes mellitus with ketoacidosis without coma Status: Acute Assessment and Plan: Patient presented the outside hospital with back pain, urine incontinence, pain all over -was found to have elevated blood sugars of 531, anion gap of 29, was diagnosed with DKA, given 2 L IV fluids, insulin infusion per DKA protocol. -will give additional IV fluid bolus this morning -continue insulin infusion for now -will transition to long-acting insulin and sliding scale insulin once her anion gap closes -recent hemoglobin A1c on 08/31/2021 was >14.0 12/11/2021 interval history patient is 75-year-old female with uncontrolled diabetes patient A1c of 14 presented emergency department with complaint of back pain and mouth pain however patient was in DKA with blood sugar of 530 and anion gap 29 patient was transferred to ICU started on IV fluid and IV insulin this morning patient is somnolent unable to provide detailed review of symptom, her blood sugars are trending down plan is to wean the patient off IV insulin and start on a long-acting and sliding scale, patient is seen by construction rigger, will continue to monitor and further recommendation to follow. (2) Hypothyroidism: Qualifiers: Hypothyroidism type: unspecified Qualified Code(s): E03.9 - Hypothyroidism, unspecified Code(s): E03.9 - Hypothyroidism, unspecified Status: Acute Assessment and Plan: TSH normal (3) Depression: Code(s): F32.A - Depression, unspecified Status: Acute Assessment and Plan: hold PO meds while she is NPO (4) Venous insufficiency: Code(s): I87.2 - Venous insufficiency (chronic) (peripheral) Status: Acute Assessment and Plan: Will place PICC line (5) Restless leg syndrome: Code(s): G25.81 - Restless legs syndrome Status: Acute Assessment and Plan: Prami Subjective Date/time seen: 12/11/21 14:07 HPI-Narrative: 71-year-old female with a past medical history of chronically uncontrolled insulin-dependent diabetes due to medication noncompliance, hypertension, diabetic peripheral neuropathy, chronic pain and diabetic nephropathy who presented to the ER at [place] via EMS due to complaints of back pain.? However by the time patient arrived to our facility the patient states her chief complaint was mouth pain.? The patient then reports that she has just been hurting all over.? On arrival to [place] the patient was noted to be hyperglycemic with a glucose of 531, and anion gap of 29 and BUN of 27 her urine specific gravity was greater than 1.03 with trace protein 2+ glucose and 3+ ketones her ABG demonstrated profound metabolic acidosis with a pH of 7.1 and a pCO2 of 14.? She was tachypneic and tachycardic with heart rate in the 120s to 140s.? EKG demonstrates sinus tachycardia.? The patient reports that she has not taken her insulin in several days.? She states that she had run out of her insulin and could not remember who her physician was to contact.? She also told me that she could not remember pharmacy.? But then she told nursing staff that she called her pharmacy and they would not give her refills.? The patient also tells me that she is re decorating her room so she lost her glucometer.? Although if my memory does not fail me patient has provided similar responses in the past.? The patient reports increased urinary frequency and in fact she had urinated 1 L of urine in the bedside commode on arrival to the ICU.? At the outside facility they had difficulty placing IV access and patient subsequently did not receive insulin and IV fluids until several hours into her ER stay.? I had requested the patient rece
[2021-12-11 14:40] LABS: Anion Gap 6 mmol/L (8-16); Blood Urea Nitrogen 19 mg/dL (7-17); Carbon Dioxide 17 mmol/L (22-30); Chloride 113 mmol/L (98-107); Estimated CRCL calculation 76 ml/min; Estimated Glomerular Filt Rate > 60; Glucose 82 mg/dL (65-110); Potassium 3.7 mmol/L (3.4-5.0); Sodium 136 mmol/L (137-145)
[2021-12-11 14:49] LABS: Glucose Point of Care 86 mg/dl (65-105)
[2021-12-11] MEDS: SODIUM CHLORIDE 0.9% IV 500 ML IV CONT (15:03)
[2021-12-11] MEDS: CENTRAL LINE FLUSH 10 ML IV PUSH ×3 (15:05→21:21)
[2021-12-11] MEDS: INSULIN GLARGINE (*BKC) 100 UNITS/ML 10 UNITS SUB-Q (15:09)
[2021-12-11 15:50] LABS: Glucose Point of Care 85 mg/dl (65-105)
[2021-12-11 17:03] LABS: Glucose Point of Care 123 mg/dl (65-105)
[2021-12-11 18:22] LABS: Anion Gap 10 mmol/L (8-16); Blood Urea Nitrogen 16 mg/dL (7-17); Calcium 9.1 mg/dL (8.4-10.2); Carbon Dioxide 13 mmol/L (22-30); Chloride 112 mmol/L (98-107); Estimated CRCL calculation 76 ml/min; Estimated Glomerular Filt Rate > 60; Glucose 157 mg/dL (65-110); Potassium 4.2 mmol/L (3.4-5.0); Sodium 135 mmol/L (137-145)
--- NOTE | 2021-12-11 18:50 | PC.NURSE ---
IO access was removed from Pt's RLE. Pressure dressing applied.
[2021-12-11 18:52] LABS: Hemoglobin A1C > 14.0 % (<5.7)
[2021-12-11 21:05] LABS: Glucose Point of Care 222 mg/dl (65-105)
[2021-12-11] MEDS: INSULIN ASPART (*BKC) 100 UNITS/ML SUB-Q (21:20)
[2021-12-11 21:25] LABS: Anion Gap 11 mmol/L (8-16); Blood Urea Nitrogen 14 mg/dL (7-17); Calcium 8.9 mg/dL (8.4-10.2); Carbon Dioxide 12 mmol/L (22-30); Chloride 110 mmol/L (98-107); Estimated CRCL calculation 76 ml/min; Estimated Glomerular Filt Rate > 60; Glucose 247 mg/dL (65-110); Potassium 4.8 mmol/L (3.4-5.0); Sodium 133 mmol/L (137-145)
[2021-12-12] VITALS (9 sets, daily range): BP systolic 90–116; BP diastolic 42–57; PULSE 70–100; RESP 16–20; TEMP 36.3–37.7; O2SAT 94–100
[2021-12-12] MEDS: INSULIN ASPART (*BKC) 100 UNITS/ML SUB-Q ×5 (01:11→21:34)
[2021-12-12 01:26] LABS: Glucose Point of Care 207 mg/dl (65-105)
[2021-12-12 04:52] LABS: Glucose Point of Care 214 mg/dl (65-105)
[2021-12-12] MEDS: CENTRAL LINE FLUSH 10 ML IV PUSH ×4 (05:07→21:34)
[2021-12-12 05:23] LABS: Basophils Percent Auto 0.1 % (0.2-1.2); Eosinophils Percent Auto 0.4 % (0-4.4); Hematocrit 33.7 % (37.0-47.0); Immature Granulocyte Absolute 0.02 K/mm3 (0.00-0.031); Immature Granulocyte Percent A 0.3 % (0-0.5); Lymphocytes Absolute Auto 1.38 K/mm3 (0.9-3.2); Lymphocytes Percent Auto 20.3 % (18.3-44.2); Mean Corpuscular HGB Conc 32.6 g/dl (32-36); Mean Corpuscular Hemoglobin 31.6 pg (26-34); Mean Corpuscular Volume 96.8 fl (80-100); Mean Platelet Volume 8.9 fl (7.4-10.4); Monocytes Absolute Auto 0.6 K/mm3 (0.1-0.6); Monocytes Percent Auto 8.7 % (2.6-8.5); Neutrophils Absolute Auto 4.8 K/mm3 (1.3-6.7); Neutrophils Percent Auto 70.2 % (45.5-73.1); Platelet Count Result 223 k/mm3 (150-375); Red Blood Count 3.48 M/mm3 (4.2-5.4); Red Cell Distribution Width 13.4 % (11.5-14.5); White Blood Count 6.8 K/mm3 (4.5-10.0)
[2021-12-12 05:36] LABS: Alanine Aminotransferase 17 U/L (6-35); Albumin Level 2.8 g/dL (3.5-5.1); Alkaline Phosphatase 72 U/L (38-126); Anion Gap 7 mmol/L (8-16); Aspartate Amino Transferase 19 U/L (14-36); Bilirubin,Total 0.4 mg/dL (0.2-1.3); Blood Urea Nitrogen 11 mg/dL (7-17); Calcium 9.3 mg/dL (8.4-10.2); Carbon Dioxide 16 mmol/L (22-30); Chloride 111 mmol/L (98-107); Estimated CRCL calculation 76 ml/min; Estimated Glomerular Filt Rate > 60; Glucose 110 mg/dL (65-110); Magnesium 1.8 mg/dL (1.6-2.3); Phosphorus 1.4 mg/dL (2.5-4.5); Potassium 3.4 mmol/L (3.4-5.0); Sodium 134 mmol/L (137-145)
[2021-12-12] MEDS: ENOXAPARIN 40 MG/0.4 ML SYRINGE SUB-Q (09:20)
[2021-12-12] MEDS: POTASSIUM PHOS/SODIUM PHOS 250 MG TABLET PO (09:20)
[2021-12-12] MEDS: polyethylene glycoL 3350 17 GM POWD.PACK PO (09:20)
[2021-12-12 09:26] LABS: Glucose Point of Care 51 mg/dl (65-105)
[2021-12-12 09:59] LABS: Glucose Point of Care 132 mg/dl (65-105)
[2021-12-12] MEDS: INSULIN GLARGINE (*BKC) 100 UNITS/ML 10 UNITS SUB-Q (10:50)
--- NOTE | 2021-12-12 12:03 | PC.NURSE ---
patient transferring to room 328 per bed.
[2021-12-12] MEDS: IBUPROFEN 600 MG TABLET PO (12:09)
--- NOTE | 2021-12-12 12:10 | PC.NURSE ---
This patient, Karly Leslie, was transferred to [ [id number]] on 12/12/21 at 1210. Personal belongings sent with patient. Report given to [SAMMY Rodriguez ]. Appropriate documentation sent with patient.
--- NOTE | 2021-12-12 12:52 | PM.IMPN ---
Progress Note: A&P Assessment and Plan (1) DKA (diabetic ketoacidosis): Qualifiers: Diabetes mellitus complication detail: without coma Diabetes mellitus type: type 2 Qualified Code(s): E11.10 - Type 2 diabetes mellitus with ketoacidosis without coma Code(s): E11.10 - Type 2 diabetes mellitus with ketoacidosis without coma Status: Acute Assessment and Plan: Patient presented the outside hospital with back pain, urine incontinence, pain all over -was found to have elevated blood sugars of 531, anion gap of 29, was diagnosed with DKA, given 2 L IV fluids, insulin infusion per DKA protocol. -will give additional IV fluid bolus this morning -continue insulin infusion for now -will transition to long-acting insulin and sliding scale insulin once her anion gap closes -recent hemoglobin A1c on 08/31/2021 was >14.0 12/12/2021 interval history patient is 75-year-old female with uncontrolled diabetes patient A1c of 14 presented emergency department with complaint of back pain and mouth pain however patient was in DKA with blood sugar of 530 and anion gap 29 patient was transferred to ICU started on IV fluid and IV insulin today little more awake, unable to provide detailed review of symptom, her blood sugars are trending down and off IV insulin, started on a long-acting insulin and sliding scale, patient is seen by ballistics teacher recommneded to transfer patient out of ICU to medical floor, will have PT/OT evaluate the patient, will continue to monitor and further recommendation to follow. (2) Hypothyroidism: Qualifiers: Hypothyroidism type: unspecified Qualified Code(s): E03.9 - Hypothyroidism, unspecified Code(s): E03.9 - Hypothyroidism, unspecified Status: Acute Assessment and Plan: TSH normal (3) Depression: Code(s): F32.A - Depression, unspecified Status: Acute Assessment and Plan: hold PO meds while she is NPO (4) Venous insufficiency: Code(s): I87.2 - Venous insufficiency (chronic) (peripheral) Status: Acute Assessment and Plan: Will place PICC line (5) Restless leg syndrome: Code(s): G25.81 - Restless legs syndrome Status: Acute Assessment and Plan: Prami Subjective Date/time seen: 12/12/21 12:52 12/12/2021 interval history patient is 75-year-old female with uncontrolled diabetes patient A1c of 14 presented emergency department with complaint of back pain and mouth pain however patient was in DKA with blood sugar of 530 and anion gap 29 patient was transferred to ICU started on IV fluid and IV insulin today little more awake, unable to provide detailed review of symptom, her blood sugars are trending down and off IV insulin, started on a long-acting insulin and sliding scale, patient is seen by ballistics teacher recommneded to transfer patient out of ICU to medical floor, will have PT/OT evaluate the patient, will continue to monitor and further recommendation to follow. Review of Systems Review of Systems: All systems reviewed & are unremarkable except as noted in HPI and below Exam Narrative: Patient is comfortable, NAD HEENT: eyes are clear and none icteric LUNGS: normal respiratory effort ABD: not distended Lower extremities: no edema SKIN: nonjaundiced Neuro: grossly intact. Objective Data Vital Signs Vital Signs: Vital Signs - 24 hr 12/11/21 14:00 12/11/21 14:00 12/11/21 16:00 Temperature 98.2 F Pulse Rate 81 81 75 Respiratory Rate 17 15 Blood Pressure 103/64 Pulse Oximetry 99 99 Oxygen Delivery Room Air 12/11/21 16:00 12/11/21 16:00 12/11/21 18:00 Temperature 98.5 F Pulse Rate 75 73 82 Respiratory Rate 15 Blood Pressure 98/60 L Pulse Oximetry 99 Oxygen Delivery 12/11/21 18:00 12/11/21 20:00 12/11/21 20:00 Temperature 98.8 F 99.4 F Pulse Rate 82 79 79 Respiratory Rate 16 15 Blood Pressure 129/62 105/67 Pulse Oximetry 98 99 Oxygen Delivery 11/27
--- NOTE | 2021-12-12 13:08 | WPDINTPN ---
Progress Note: A&P Assessment and Plan (1) DKA (diabetic ketoacidosis): Qualifiers: Diabetes mellitus complication detail: without coma Diabetes mellitus type: type 2 Qualified Code(s): E11.10 - Type 2 diabetes mellitus with ketoacidosis without coma Code(s): E11.10 - Type 2 diabetes mellitus with ketoacidosis without coma Status: Acute Assessment and Plan: Patient presented the outside hospital with back pain, urine incontinence, pain all over -was found to have elevated blood sugars of 531, anion gap of 29, was diagnosed with DKA, given 2 L IV fluids, insulin infusion per DKA protocol. -patient was given adequate amount of IV fluids, -off insulin infusion since yesterday -currently on sliding scale insulin and Lantus -recent hemoglobin A1c on 08/31/2021 was >14.0 -patient has uncontrolled diabetes given her hemoglobin A1c (2) Hypothyroidism: Qualifiers: Hypothyroidism type: unspecified Qualified Code(s): E03.9 - Hypothyroidism, unspecified Code(s): E03.9 - Hypothyroidism, unspecified Status: Acute Assessment and Plan: TSH normal (3) Depression: Code(s): F32.A - Depression, unspecified Status: Acute Assessment and Plan: Chronic (4) Venous insufficiency: Code(s): I87.2 - Venous insufficiency (chronic) (peripheral) Status: Acute Assessment and Plan: PICC line was inserted on 12/11/2021 (5) Restless leg syndrome: Code(s): G25.81 - Restless legs syndrome Status: Acute Assessment and Plan: Continue pramipexole Plan DVT prophylaxis:lovenox Nutrition: Diabetic diet Code Status: DNR Critical Care Time Spent: 31 minutes Patient will be transferred out of the ICU today Due to a high probability of clinically significant, life threatening deterioration, the patient required my highest level of preparedness to intervene emergently and I personally spent this critical care time directly and personally managing the patient. This critical care time included obtaining a history; examining the patient; pulse oximetry; ordering and review of studies; arranging urgent treatment with development of a management plan; evaluation of patient's response to treatment; frequent reassessment; and discussions with other providers. It was exclusive of separately billable procedures and treating other patients and teaching time. Please see Assessment and Plan section and the rest of the note for further information on patient assessment and treatment Subjective Date/time seen: 12/12/21 13:08 Interval history: Reason for consult: Diabetic ketoacidosis, urine incontinence, back pain. 12/12/2021: Patient seen and examined the ICU, is awake, alert, tolerating p.o. diet. Denies any shortness of breath, chest pain, abdominal pain, nausea vomiting. She has chronic back pain which she says is controlled Urine output has been adequate, hemodynamically stable and afebrile. Review of Systems Review of Systems: All systems reviewed & are unremarkable except as noted in HPI and below Exam Narrative: General: Pleasant female in no acute distress HEENT:? Pupils equal and reactive, sclera is clear, moist oral mucosa oral mucosa Neck:? Supple, no lymphadenopathy Respiratory:? Clear to auscultation bilaterally, no wheezing, adequate air entry Cardiac:? Regular rate and rhythm, S1-S2 is normal Abdomen:? Soft, nontender, nondistended, normoactive bowel sounds Extremities:? No edema Neuro:? Patient is awake, alert, oriented x3, nonfocal Skin:? Warm and dry, no lesions noted Psych:? Flat affect with normal mentation Objective Data Vital Signs Vital Signs: Vital Signs - 24 hr 12/11/21 14:00 12/11/21 14:00 12/11/21 16:00 Temperature 98.2 F Pulse Rate 81 81 75 Respiratory Rate 17 15 Blood Pressure 103/64 Pulse Oximetry 99 99 Oxygen Delivery Room Air 12/11/21 16:00 12/11/21 16:00 12/11/21 18:00 Temperature
[2021-12-12] MEDS: ONDANSETRON INJ 4 MG/2 ML VIAL IV PUSH (13:24)
[2021-12-12 13:38] LABS: Glucose Point of Care 342 mg/dl (65-105)
[2021-12-12 16:03] LABS: Glucose Point of Care 232 mg/dl (65-105)
[2021-12-12 21:30] LABS: Glucose Point of Care 290 mg/dl (65-105)
[2021-12-12] MEDS: PRAMIPEXOLE 1 MG TABLET 3 MG PO (21:33)
[2021-12-13 01:31] LABS: Glucose Point of Care 196 mg/dl (65-105)
[2021-12-13 05:46] LABS: Glucose Point of Care 223 mg/dl (65-105)
[2021-12-13] MEDS: INSULIN ASPART (*BKC) 100 UNITS/ML SUB-Q ×5 (05:58→16:52)
[2021-12-13] MEDS: CENTRAL LINE FLUSH 10 ML IV PUSH ×4 (05:59→20:01)
[2021-12-13 06:04] VITALS: BP 117/62; PULSE 79; RESP 18; TEMP 36.3; O2SAT 97
[2021-12-13 07:37] LABS: Glucose Point of Care 202 mg/dl (65-105)
[2021-12-13] MEDS: INSULIN GLARGINE (*BKC) 100 UNITS/ML 10 UNITS SUB-Q (08:24)
[2021-12-13] MEDS: ENOXAPARIN 40 MG/0.4 ML SYRINGE SUB-Q (08:28)
[2021-12-13 10:10] LABS: Anion Gap 7 mmol/L (8-16); Blood Urea Nitrogen 9 mg/dL (7-17); Calcium 9.8 mg/dL (8.4-10.2); Carbon Dioxide 23 mmol/L (22-30); Chloride 101 mmol/L (98-107); Estimated CRCL calculation 93 ml/min; Estimated Glomerular Filt Rate > 60; Glucose 265 mg/dL (65-110); Magnesium 1.8 mg/dL (1.6-2.3); Sodium 131 mmol/L (137-145)
[2021-12-13 11:39] LABS: Glucose Point of Care 240 mg/dl (65-105)
[2021-12-13 11:45] LABS: Glucose Point of Care 241 mg/dl (65-105)
--- NOTE | 2021-12-13 13:30 | PM.IMPN ---
Progress Note: A&P Assessment and Plan (1) DKA (diabetic ketoacidosis): Qualifiers: Diabetes mellitus complication detail: without coma Diabetes mellitus type: type 2 Qualified Code(s): E11.10 - Type 2 diabetes mellitus with ketoacidosis without coma Code(s): E11.10 - Type 2 diabetes mellitus with ketoacidosis without coma Status: Acute Assessment and Plan: Patient presented the outside hospital with back pain, urine incontinence, pain all over -was found to have elevated blood sugars of 531, anion gap of 29, was diagnosed with DKA, given 2 L IV fluids, insulin infusion per DKA protocol. -will give additional IV fluid bolus this morning -continue insulin infusion for now -will transition to long-acting insulin and sliding scale insulin once her anion gap closes -recent hemoglobin A1c on 08/31/2021 was >14.0 12/13/2021 interval history patient is 75-year-old female with uncontrolled diabetes patient A1c of 14 presented emergency department with complaint of back pain and mouth pain however patient was in DKA with blood sugar of 530 and anion gap 29 patient was transferred to ICU started on IV fluid and IV insulin on 12/12 little more awake, unable to provide detailed review of symptom, her blood sugars are trending down and off IV insulin, started on a long-acting insulin and sliding scale, patient is seen by project management director recommended to transfer patient out of ICU to medical floor, patient was transferred to medical floor, today patient feeling much better today, patient is on lantus 10u qd, and sliding scale, her blood sugars close to 200s, will have PT/OT evaluate the patient, will continue to monitor and further recommendation to follow. if remains clinically stable, will discharge patient tomorrow. (2) Hypothyroidism: Qualifiers: Hypothyroidism type: unspecified Qualified Code(s): E03.9 - Hypothyroidism, unspecified Code(s): E03.9 - Hypothyroidism, unspecified Status: Acute Assessment and Plan: TSH normal (3) Depression: Code(s): F32.A - Depression, unspecified Status: Acute Assessment and Plan: hold PO meds while she is NPO (4) Venous insufficiency: Code(s): I87.2 - Venous insufficiency (chronic) (peripheral) Status: Acute Assessment and Plan: Will place PICC line (5) Restless leg syndrome: Code(s): G25.81 - Restless legs syndrome Status: Acute Assessment and Plan: Prami Subjective Date/time seen: 12/13/21 13:30 12/13/2021 interval history patient is 75-year-old female with uncontrolled diabetes patient A1c of 14 presented emergency department with complaint of back pain and mouth pain however patient was in DKA with blood sugar of 530 and anion gap 29 patient was transferred to ICU started on IV fluid and IV insulin on 12/12 little more awake, unable to provide detailed review of symptom, her blood sugars are trending down and off IV insulin, started on a long-acting insulin and sliding scale, patient is seen by project management director recommended to transfer patient out of ICU to medical floor, patient was transferred to medical floor, today patient feeling much better today, patient is on lantus 10u qd, and sliding scale, her blood sugars close to 200s, will have PT/OT evaluate the patient, will continue to monitor and further recommendation to follow. if remains clinically stable, will discharge patient tomorrow. Review of Systems Review of Systems: All systems reviewed & are unremarkable except as noted in HPI and below Exam Narrative: Patient is comfortable, NAD HEENT: eyes are clear and none icteric LUNGS: normal respiratory effort ABD: not distended Lower extremities: no edema SKIN: nonjaundiced Neuro: grossly intact. Objective Data Vital Signs Vital Signs: Vital Signs - 24 hr 12/12/21 16:00 12/12/21 19:35 12/12/21 23:40 Temperature 97.4 F L 97.5 F L 97.6 F Pulse Rate 70 79 100 Respiratory
[2021-12-13 13:34] VITALS: BMI 30.1
[2021-12-13 13:50] VITALS: BMI 30.1
[2021-12-13 14:45] VITALS: BP 109/61; PULSE 84; RESP 22; TEMP 37.2; O2SAT 96
[2021-12-13 17:22] LABS: Glucose Point of Care 383 mg/dl (65-105)
[2021-12-13] MEDS: PRAMIPEXOLE 1 MG TABLET 3 MG PO (20:00)
[2021-12-13 20:09] LABS: Glucose Point of Care 308 mg/dl (65-105)
[2021-12-13 21:44] VITALS: BP 121/64; PULSE 77; RESP 24; TEMP 36.9; O2SAT 99
[2021-12-13 23:59] LABS: Glucose Point of Care 270 mg/dl (65-105)
[2021-12-14 03:58] LABS: Glucose Point of Care 231 mg/dl (65-105)
[2021-12-14] MEDS: CENTRAL LINE FLUSH 10 ML IV PUSH (05:05)
[2021-12-14] MEDS: CENTRAL LINE FLUSH 20 ML IV PUSH (05:05)
[2021-12-14 05:10] LABS: Hematocrit 31.7 % (37.0-47.0); Hemoglobin 10.6 g/dL (12.0-15.0); Mean Corpuscular HGB Conc 33.4 g/dl (32-36); Mean Corpuscular Hemoglobin 31.7 pg (26-34); Mean Corpuscular Volume 94.9 fl (80-100); Mean Platelet Volume 9.1 fl (7.4-10.4); Platelet Count Result 143 k/mm3 (150-375); Red Blood Count 3.34 M/mm3 (4.2-5.4); White Blood Count 4.1 K/mm3 (4.5-10.0)
[2021-12-14 05:21] LABS: Anion Gap 2 mmol/L (8-16); Blood Urea Nitrogen 9 mg/dL (7-17); Carbon Dioxide 25 mmol/L (22-30); Chloride 103 mmol/L (98-107); Estimated CRCL calculation 93 ml/min; Estimated Glomerular Filt Rate > 60; Glucose 260 mg/dL (65-110); Magnesium 1.9 mg/dL (1.6-2.3); Potassium 3.7 mmol/L (3.4-5.0); Sodium 130 mmol/L (137-145)
[2021-12-14 05:22] VITALS: BP 119/76; PULSE 65; RESP 20; TEMP 36.6; O2SAT 96
[2021-12-14] MEDS: INSULIN ASPART (*BKC) 100 UNITS/ML SUB-Q ×4 (08:07→11:37)
[2021-12-14 08:09] LABS: Glucose Point of Care 281 mg/dl (65-105)
[2021-12-14] MEDS: INSULIN GLARGINE (*BKC) 100 UNITS/ML 10 UNITS SUB-Q (08:11)
[2021-12-14] MEDS: ENOXAPARIN 40 MG/0.4 ML SYRINGE SUB-Q (08:14)
--- NOTE | 2021-12-14 10:56 | PCPTNOTE ---
Patient declined PT stating she will be discharged home today. Patient reports having no therapy needs at this time.
[2021-12-14] MEDS: NEOMYCIN/POLYMYXIN/BACITRACIN OINTMENT PACKET 1 PACKET (10:58)
[2021-12-14 11:16] LABS: Glucose Point of Care 248 mg/dl (65-105)
--- NOTE | 2021-12-14 12:12 | PM.DS ---
DS: Admitting Diagnosis Discharge Date 12/25/2021 Admitting Diagnosis generalized weakness DKA DS: Discharge Diagnosis Discharge Diagnosis (1) DKA (diabetic ketoacidosis): Qualifiers: Diabetes mellitus complication detail: without coma Diabetes mellitus type: type 1 Qualified Code(s): E10.10 - Type 1 diabetes mellitus with ketoacidosis without coma Code(s): E11.10 - Type 2 diabetes mellitus with ketoacidosis without coma Status: Acute Assessment and Plan: Patient presented the outside hospital with back pain, urine incontinence, pain all over -was found to have elevated blood sugars of 531, anion gap of 29, was diagnosed with DKA, given 2 L IV fluids, insulin infusion per DKA protocol. -will give additional IV fluid bolus this morning -continue insulin infusion for now -will transition to long-acting insulin and sliding scale insulin once her anion gap closes -recent hemoglobin A1c on 08/31/2021 was >14.0 12/13/2021 interval history patient is 75-year-old female with uncontrolled diabetes patient A1c of 14 presented emergency department with complaint of back pain and mouth pain however patient was in DKA with blood sugar of 530 and anion gap 29 patient was transferred to ICU started on IV fluid and IV insulin on 12/12 little more awake, unable to provide detailed review of symptom, her blood sugars are trending down and off IV insulin, started on a long-acting insulin and sliding scale, patient is seen by electroplating laborer recommended to transfer patient out of ICU to medical floor, patient was transferred to medical floor, today patient feeling much better today, patient is on lantus 10u qd, and sliding scale, her blood sugars close to 200s, will have PT/OT evaluate the patient, will continue to monitor and further recommendation to follow. if remains clinically stable, will discharge patient tomorrow. (2) Hypothyroidism: Qualifiers: Hypothyroidism type: unspecified Qualified Code(s): E03.9 - Hypothyroidism, unspecified Code(s): E03.9 - Hypothyroidism, unspecified Status: Acute Assessment and Plan: TSH normal (3) Depression: Code(s): F32.A - Depression, unspecified Status: Acute Assessment and Plan: hold PO meds while she is NPO (4) Venous insufficiency: Code(s): I87.2 - Venous insufficiency (chronic) (peripheral) Status: Acute Assessment and Plan: Will place PICC line (5) Restless leg syndrome: Code(s): G25.81 - Restless legs syndrome Status: Acute Assessment and Plan: Lianne DS: Summary Hospital Course Reason for hospitalization: generalized weakness Narrative: ?This 71-year-old female with past medical history significant for diabetes mellitus, insulin dependent, diabetic peripheral neuropathy, fibromyalgia, hypothyroidism, ovarian cancer, restless leg syndrome, chronic back pain.? Patient presented to outside hospital emergency room due to lightheadedness, weakness, according to history patient had been in her usual state of health she was recently discharged from [facility] after she was treated for diabetic ketoacidosis, she had met with her friend of her and went to have couple of beers but was feeling very tired, weak and lightheaded.? Preliminary workup was significant for ?SODIUM 119 POTASSIUM 7.1 BLOOD GLUCOSE 800? ANION GAP 29 BICARB OF 10 CREATININE 1.5 BUN 50 LACTIC ACID 2.4 AN ABG SHOWED A PH OF 7.16? PCO2 16 PO2 109 Hospital Course: patient is 71-year-old female with history of insulin dependent diabetes and history of recurrent hyperglycemia and DKA patient was just recently discharged from the hospital after she was treated for DKA 12/14/2021,? patient a gainon 12/22? presented to ER with hyperglycemia and was in DKA, patient was transferred to ICU, was vigorously hydrated and started on IV insulin, patient blood sugars are trending down and she was? off IV insulin and started on long-acting insulin,
--- NOTE | 2021-12-14 14:20 | PC.NURSE ---
Patient needed refill of insulin needles along with order for insulin. Called [facility] pharmacy to add those to her prescriptions.
== END 2021-12-14 14:00 | disposition home or self-care (01) | DRG 639 ==
LOC: ANHICU 12:11 → ANH3MEDSUR 12-13 09:50 → ANHICU 12-16 12:54
PROVIDERS: Internal Medicine; Admitting Provider Internal Medicine; PCP Family Medicine; Visit Provider Family Medicine
DX: E11.10 Type 2 diabetes mellitus with ketoacidosis without coma (principal); E11.21 Type 2 diabetes mellitus with diabetic nephropathy; E11.42 Type 2 diabetes mellitus with diabetic polyneuropathy; E03.9 Hypothyroidism, unspecified; F32.A Depression, unspecified; G25.81 Restless legs syndrome; R32 Unspecified urinary incontinence; E86.0 Dehydration; E87.5 Hyperkalemia; M79.7 Fibromyalgia; M54.9 Dorsalgia, unspecified; G89.29 Other chronic pain; R41.3 Other amnesia; I87.2 Venous insufficiency (chronic) (peripheral); Z66 Do not resuscitate; Z28.21 Immunization not carried out because of patient refusal; Z79.4 Long term (current) use of insulin; Z79.85 Long-term (current) use of injectable non-insulin antidiabetic drugs; Z85.43 Personal history of malignant neoplasm of ovary; Z86.16 Personal history of COVID-19; Z91.14 Patient's other noncompliance with medication regimen; Z90.710 Acquired absence of both cervix and uterus; Z90.79 Acquired absence of other genital organ(s)
CPT/HCPCS: 36415; 36569; 80048; 80053; 82948; 83036; 83735; 84100; 84443; 85025; 85027; 85055; 87086; 97161; 97165; A9270; C1751; J1650; J1815; J2405; J3480; J7030; J7040

== ENCOUNTER 2021-12-21 19:59 | Emergency (ER) | payer MEDICARE, SELFPAY ==
[2021-12-21 20:08] VITALS: BP 169/73; PULSE 88; RESP 20; TEMP 36.8; O2SAT 100
--- NOTE | 2021-12-21 20:14 | ED.DIZZY ---
HPI - Dizziness General Chief Complaint: Dizziness Stated Complaint: feeling weak Time Seen by Provider: 12/21/21 20:00 Source: patient and RN notes reviewed Mode of arrival: ambulatory Limitations: no limitations History of Present Illness HPI Narrative: patient states she has been feeling lightheaded since yesterday. She has a history of noncompliance and poor control of her diabetes. Today she said she went with a friend to the [facility] and had a couple of beers. She says that her right leg hurts where she recently had an IO placed. She says she can not walk but yet she walked here into the emergency room in down to her room in the emergency room. She shows she just feels weak and lightheaded. She said she has not eaten all day but she had a couple of beers for the 1st time in a while. MD elicited complaint: lightheadedness Onset (ago): day(s) (1) Timing: gradual onset Severity: moderate Description: lightheadedness Exacerbating factors: movement/ambulation and standing Relieving factors: nothing Associated symptoms: weakness Related Data Home Medications Medication Instructions Recorded Confirmed dulaglutide 0.75 mg/0.5 mL 0.75 mg subcut WEEKLY 12/10/21 12/22/21 subcutaneous pen injector (Trulicity) pramipexole 1.5 mg tablet 3 mg PO HS 12/22/21 12/22/21 Allergies Allergy/AdvReac Type Severity Reaction Status Date / Time banana Allergy Severe SEVERE Verified 12/21/21 20:18 HIVES acetaminophen [From Tylenol] AdvReac Intermediate Nausea and Verified 12/21/21 20:18 Vomiting aspirin AdvReac Intermediate Nausea and Verified 12/21/21 20:18 Vomiting fluoxetine [From Prozac] AdvReac Hallucinati Verified 12/21/21 20:18 ng Review of Systems Review of Systems: All systems reviewed & are unremarkable except as noted in HPI and below PMFSH Past Medical History Medical History Back pain Depression Diabetic peripheral neuropathy Fibromyalgia Hypothyroidism Memory change Ovarian cancer At the age of 33, status post hysterectomy. Patient states that half an ovary was left during surgery. She required no further treatment. Pneumonia due to COVID-19 virus (~09/2020) Restless leg syndrome Shingles Type 2 diabetes mellitus Hemoglobin A1c was > 14% August 2021 C-peptide 0.63. Surgical History Surgical History History of tonsillectomy (~1970) History of total hysterectomy with bilateral salpingo-oophorectomy (BSO) (~1983) History of tubal ligation (~1983) Family History Family History Grandparent Family history of premature coronary heart disease, Onset Age: 64 Father Family history of respiratory disorder, Onset Age: 87 Family history of cardiovascular disease Patient's father is Family history of Alzheimer's disease Cerebrovascular accident Mother Family history of primary malignant neoplasm of liver, Onset Age: 64 Family history of malignant neoplasm Patient's mother is , Onset Age: 64 Family history of malignant neoplasm of breast in first degree relative Sibling Heart attack Sibling Heart attack Social History Social History Social History: The patient is . She lives in her own home in [place], [place] with her daughter Jose. She does not work. She has 2 daughters, and designates her daughter Jose Posey, as her surrogate decision maker. She wishes to be a do not resuscitate. She is a lifelong nonsmoker. She drinks perhaps 4-12 alcoholic beverages a week. No drug use. Smoking status: Never smoker Second hand tobacco smoke exposure: No Alcohol intake: current Drinks per week: 4 Substance use: never Substance use type: does not use Other substance usage details: denies Has the Lack of Transportation K
[2021-12-21 20:21] LABS: Glucose Point of Care > 450 mg/dl (65-105)
[2021-12-21 20:30] VITALS: BP 162/72; PULSE 87; RESP 20; O2SAT 100
[2021-12-21 20:37] LABS: Base Excess ABG -20.7 mmol/L (0-2); HCO3 ABG 5.8 mmol/L (23-29); Oxygen Content ABG 18.5 %vol (16.0-22.0); Oxygen Saturation ABG 96.7 % (95-97); Oxyhemoglobin 96.1 % (94-100); PO2 ABG 109.9 mmHg (75-85); Total Hemoglobin 13.6 g/dL (12.0-18.0); pH ABG 7.16 (7.35-7.45)
[2021-12-21 20:40] LABS: Basophils Absolute Auto 0.04 K/mm3 (0.00-0.10); Basophils Percent Auto 0.5 % (0.0-1.0); Device ROOM AIR; Hematocrit 43.8 % (35.0-42.0); Immature Granulocyte Absolute 0.08 K/mm3 (0.00-0.00); Lymphocytes Percent Auto 7.6 % (18.0-42.0); Mean Corpuscular HGB Conc 29.7 g/dL (32.0-36.0); Mean Corpuscular Hemoglobin 31.6 pg (27.0-31.0); Mean Corpuscular Volume 106.6 fL (78.0-102.0); Mean Platelet Volume 9.4 fl (9.2-11.8); Modified Allen's Test Pass; Monocytes Absolute Auto 0.77 K/mm3 (0.10-0.90); Monocytes Percent Auto 9.7 % (2.0-11.0); Neutrophils Absolute Auto 6.5 K/mm3 (1.7-7.2); Neutrophils Percent Auto 81.2 % (50.0-70.0); PCO2 ABG 16.9 mmHg (35-45); Platelet Count Result 440 K/mm3 (150-420); Red Blood Count 4.11 M/mm3 (4.20-5.40); Red Cell Distribution Width 13.4 % (11.6-14.4); Site Drawn RIGHT RADIAL; White Blood Count 7.9 K/mm3 (4.8-10.8)
[2021-12-21 20:58] LABS: Lactic Acid Reflex 2.4 mmol/L (0.4-2.0)
[2021-12-21 21:05] LABS: Alanine Aminotransferase 24 U/L (14-59); Albumin Level 3.9 g/dL (3.4-5.0); Alkaline Phosphatase 140 U/L (46-116); Anion Gap 29 mmol/L (8-16); Aspartate Amino Transferase 13 U/L (15-37); Bilirubin,Total 0.5 mg/dL (0.00-1.00); Blood Urea Nitrogen 53 mg/dL (7-18); Calcium 11.2 mg/dL (8.5-10.1); Carbon Dioxide 10 mmol/L (21-32); Chloride 80 mmol/L (98-108); Estimated CRCL calculation 21 ml/min; Estimated Glomerular Filt Rate 32; Ethanol 3 mg/dL (0-6); Magnesium 2.9 mg/dL (1.8-2.4)
[2021-12-21 21:06] LABS: Appearance Urine Clear (Clear); Bilirubin Urine Negative (Negative); Blood Urine Negative (Negative); Glucose Urine UA 3+ (Negative); Ketones Urine 3+ (Negative); Leukocyte Esterase Ur Negative LEU/UL (Negative); Nitrate Urine Negative (Negative); Protein Urine Negative (Negative); Specific Grav Ur 1.015 (1.010-1.020); Urobilinogen Urine 0.2 mg/dL (0.2-1.0)
[2021-12-21 21:09] LABS: Sodium 119 mmol/L (136-145)
[2021-12-21 21:10] LABS: Potassium 7.1 mmol/L (3.5-5.1)
[2021-12-21 21:14] LABS: Add Urine Microscopic? YES; Bacteria Urine Trace /hpf; Color Urine Light Yellow (Yellow); RBC Urine 0-2 /hpf (0-2); Squamous Epithelial Cell Urine Rare /hpf (Few); WBC Urine 0-3 /hpf (0-3)
[2021-12-21 21:15] LABS: Glucose > 800 mg/dL (70-99); Osmolality Calculated 301 mOsm/kg (285-295)
[2021-12-21] MEDS: INSULIN HUMAN REGULAR (*BKC) 100 UNITS/ML 15 UNITS SUB-Q (21:30)
--- NOTE | 2021-12-21 21:38 | PC.NURSE ---
RN attempts 2 IV sticks and missed. Pt states she is a difficult stick and received a PICC line her last admission. Second RN is attempting IV access at this time.
--- NOTE | 2021-12-21 21:57 | PC.NURSE ---
2nd RN was unsuccessful at obtaining IV access. ERP states he will attempt to start an IV with ultrasound. RN retrieves handheld ultrasound.
--- NOTE | 2021-12-21 22:42 | ECG_ITS ---
Measurements Intervals [place] Rate: 111 P: 61 PA: 179 QRS: 47 QRSD: 88 T: 0 QT: 306 QTc: 416 Interpretive Statements SINUS TACHYCARDIA BASELINE ARTIFACT POSSIBLE LEFT ATRIAL ENLARGEMENT [-0.1mV P-WAVE IN V1/V2] ANTEROALATERAL ST & T-WAVE ABNORMALITY, CONSIDER ISCHEMIA ABNORMAL ECG COMPARED TO ECG 09/14/2021 11:14:33 SINUS TACHYCARDIA NOW PRESENT T-WAVE ABNORMALITY NOW PRESENT Electronically Signed On 12-22-2021 16:19:29 CDT by Alberto Louise M.D.
[2021-12-21] MEDS: LACTATED RINGERS 1,000 ML 999 ML IV CONT (22:43)
[2021-12-21 22:45] VITALS: BP 147/67; PULSE 104; RESP 18; O2SAT 100
[2021-12-21] MEDS: INSULIN REG 100 UNITS/100 ML 100 UNITS/100 ML BAG 8 UNITS IV CONT (22:55)
[2021-12-21 23:00] VITALS: BP 151/87; PULSE 106; RESP 22; O2SAT 98
[2021-12-21] MEDS: SODIUM BICARBONATE 8.4% 50 MEQ/50 ML SYRINGE IV PUSH (23:08)
[2021-12-21 23:30] VITALS: BP 146/77; PULSE 106; RESP 22; O2SAT 100
[2021-12-21 23:36] LABS: Reflex Lactic Acid Yes or No Add Lactic
[2021-12-22 00:07] VITALS: BP 134/79; PULSE 103; RESP 24; O2SAT 98
--- NOTE | 2021-12-22 00:45 | PC.NURSE ---
ERP and RN attempt more unsuccessful IV sticks with the ultrasound. After the second EJ attempt pt states she refuses any more needles at this time. Pt states she does not want anymore needle sticks of any kind from 'this place.' Pt states she has a bad history of misses with this facility and does not want any more attempts done. RN calls model making supervisor for an update. Special Procedure Technologist asks RN to obtain a signed refusal. RN educates pt on the risks and benefits of an IV, IO, or central line placed. Pt still refuses any more attempts and states that she is willing to attempt at [place]. Pt signs an AMA paper and ERP aware.
[2021-12-22 01:10] VITALS: BP 120/63; PULSE 88; RESP 16; TEMP 37; O2SAT 98
[2021-12-22 01:15] LABS: Glucose Point of Care > 450 mg/dl (65-105)
[2021-12-22 01:30] VITALS: BP 116/77; PULSE 88; RESP 20; TEMP 37; O2SAT 98
== END 2021-12-22 01:40 | disposition short-term general hospital (02) ==
PROVIDERS: Emergency Provider Emergency Medicine
DX: E11.10 Type 2 diabetes mellitus with ketoacidosis without coma (principal); E03.9 Hypothyroidism, unspecified; Z85.43 Personal history of malignant neoplasm of ovary; Z79.899 Other long term (current) drug therapy
CPT/HCPCS: 36415; 36600; 80053; 80307; 81001; 82805; 82948; 83605; 83735; 85025; 93005; 96365; 96375; 99285; J1815; J7120

== ENCOUNTER 2021-12-23 14:30 | Inpatient (IN) | payer MEDICARE, SELFPAY ==
[2021-12-22] VITALS (10 sets, daily range): BP systolic 94–147; BP diastolic 52–64; PULSE 66–92; RESP 12–22; TEMP 36.5–37.4; O2SAT 95–100; BMI 18.9
[2021-12-22 02:36] LABS: Glucose Point of Care > 500 mg/dl (65-105)
--- NOTE | 2021-12-22 02:36 | PC.NURSE ---
Patient arrived from [facility] with no IV access. Dr. Barajas aware. Attempting to get IV access. Patient refused anymore attempts over at [facility]. Dr. Barajas notified of patient arrival.
--- NOTE | 2021-12-22 02:37 | ADMGEN ---
This patient, Karly Leslie, was admitted to Intensive Care Unit-8. Patient/family oriented to hospital policies and general routines including ID bracelet, bed and alarms, visiting hours, pain management, procedures, bathroom and other care routines, personal items, smoking policy, room service/diet, and visiting hours. Information on how to activate the Rapid Response Team has been discussed. Patient/Family are encouraged to report perceived risks to care and to ask questions if they do not understand what they are told or what they should do.
--- NOTE | 2021-12-22 02:47 | PM.IMHP ---
H&P: HPI History of Present Illness Date/Time: 12/22/21 02:47 Chief Complaint: generalized weakness Narrative: This 71-year-old female with past medical history significant for diabetes mellitus, insulin dependent, diabetic peripheral neuropathy, fibromyalgia, hypothyroidism, ovarian cancer, restless leg syndrome, chronic back pain. Patient presented to outside hospital emergency room due to lightheadedness, weakness, according to history patient had been in her usual state of health she was recently discharged from [facility] after she was treated for diabetic ketoacidosis, she had met with her friend of her and went to have couple of beers but was feeling very tired, weak and lightheaded. Preliminary workup was significant for SODIUM 119 POTASSIUM 7.1 BLOOD GLUCOSE 800 ANION GAP 29 BICARB OF 10 CREATININE 1.5 BUN 50 LACTIC ACID 2.4 AN ABG SHOWED A PH OF 7.16 PCO2 16 PO2 109 Review of Systems Review of Systems: PATIENT PRESENTED TO OUTSIDE HOSPITAL EMERGENCY ROOM Constitutional: Constitutional: Denies chills, Reports fatigue, Denies fever(s), Reports lethargy and Reports weakness Eyes: Eyes: Denies change in vision ENT: Denies dysphagia, Denies vertigo, Reports dizziness and Denies odynophagia Cardiovascular: Cardiovascular: Denies chest pain, Denies syncope, Denies irregular heart rhythm and Reports lightheadedness Respiratory: Respiratory: Denies chest congestion and Denies cough Gastrointestinal: Gastrointestinal: Denies abdominal pain, Denies dyspepsia, Denies heartburn, Denies diarrhea, Denies nausea and Denies vomiting Genitourinary: Genitourinary: Denies dysuria Musculoskeletal: Musculoskeletal: Reports back pain, Denies joint swelling and Reports muscle weakness Integumentary/Breasts: Skin/Breast: Denies rash Neurologic: Denies vertigo, Denies dizziness, Denies focal weakness and Denies Sensory deficit (Neuro) Psychiatric: Psychiatric: Reports no additional psychiatric complaints and Reports as per HPI Endocrine: Endocrine: Denies cold intolerance, Denies flushing, Denies heat intolerance, Reports polyphagia, Reports polydipsia and Reports polyuria Hematologic/Lymphatic: Hematologic/Lymphatic: Reports no additional hematologic/lymphatic complaints and Reports as per HPI Allergic/Immunologic: Allergic/Immunologic: Reports no additional allergic/immunologic complaints and Reports as per HPI PMFSH Past Medical History Medical History Back pain Depression Diabetic peripheral neuropathy Fibromyalgia Hypothyroidism Memory change Ovarian cancer At the age of 33, status post hysterectomy. Patient states that half an ovary was left during surgery. She required no further treatment. Pneumonia due to COVID-19 virus (~09/2020) Restless leg syndrome Shingles Type 2 diabetes mellitus Hemoglobin A1c was > 14% August 2021 C-peptide 0.63. Surgical History Surgical History History of tonsillectomy (~1970) History of total hysterectomy with bilateral salpingo-oophorectomy (BSO) (~1983) History of tubal ligation (~1983) Family History Family History Grandparent Family history of premature coronary heart disease, Onset Age: 64 Father Family history of respiratory disorder, Onset Age: 87 Family history of cardiovascular disease Patient's father is Family history of Alzheimer's disease Cerebrovascular accident Mother Family history of primary malignant neoplasm of liver, Onset Age: 64 Family history of malignant neoplasm Patient's mother is , Onset Age: 64 Family history of malignant neoplasm of breast in first degree relative Sibling Heart attack Sibling Heart attack Social History Social History Social History: The patient is . She lives in her o
--- NOTE | 2021-12-22 03:18 | PC.NURSE ---
attempted to find iv access with ultrasound only one vein observed in right forearm at a depth of 1 cm and .2mm in diameter
[2021-12-22 03:40] LABS: Hemoglobin A1C > 14.0 % (<5.7)
[2021-12-22 03:48] LABS: Anion Gap 30 mmol/L (8-16); Blood Urea Nitrogen 52 mg/dL (7-17); Calcium 11.2 mg/dL (8.4-10.2); Carbon Dioxide 8 mmol/L (22-30); Chloride 93 mmol/L (98-107); Estimated CRCL calculation 35 ml/min; Estimated Glomerular Filt Rate > 60; Glucose 737 mg/dL (65-110); Magnesium 2.9 mg/dL (1.6-2.3); Potassium 5.8 mmol/L (3.4-5.0); Sodium 131 mmol/L (137-145)
[2021-12-22] MEDS: SODIUM CHLORIDE 0.9% IV 1,000 ML 150 ML IV CONT (04:42)
[2021-12-22] MEDS: INSULIN HUMAN REGULAR (*BKC) 100 UNITS in SODIUM CHLORIDE 0.9% IV 99 ML 8.8 UNITS IV CONT (04:42)
--- NOTE | 2021-12-22 04:45 | P.PCNBED_ITS ---
Procedures Central Line Placement Right IJ: Central Line Date: 12/22/21 Central Line Time: 04:30 Discussed w/ the patient/family/POA,the placement of a central venous catheter, including its clinical necessity/indication & associated potential risks, benifits and alternatives.: Yes Consent: I have discussed with the patient and/or surrogate, the non-emergent placement of a central venous catheter, including its clinical necessity/indication and associated potential risks and complications. The patient and/or surrogate understand(s) and acknowledge(s) the need to proceed with central venous catheter insertion as an important element of the patient's clinical management. Time Out Performed: Yes Patient Position: trendelenburg Patient placed on monitor/pulse ox: Yes Provider Prep: mask, sterile gown, sterile gloves, Max. sterile barrier precautions, cap and hand hygiene with conventional soap/water or alcohol based hand rub Central line prep: 2% Chlorhexidine scrub Local anesthesia used: lidocaine 1% Amount of anesthesia used (ml): 10 Sterile US Technique with sterile gel/sterile probe covers: Yes Central line lumen inserted: triple Setswana: 15 Length (cm): 15 Depth of Insertion (cm): 15 Post Procedure: sutured in place, good blood return, all ports aspirated, flushed, capped, transparent dressing and aseptic technique maintained throughout procedure Post procedure x-ray: tip of catheter in good position and no pneumothorax seen Patient tolerated procedure: well and no complications Complications: none
[2021-12-22] MEDS: CENTRAL LINE FLUSH 10 ML IV PUSH ×4 (04:47→20:43)
[2021-12-22] MEDS: SODIUM CHLORIDE 0.9% IV 2,000 ML 999 ML IV CONT (04:52)
[2021-12-22] MEDS: HYDROmorphone HCL INJ (*CRX) 1 MG/ML SYR IV PUSH ×2 (04:58→09:06)
[2021-12-22] MEDS: ONDANSETRON INJ 4 MG/2 ML VIAL IV PUSH (04:58)
[2021-12-22 06:07] LABS: Add Urine Microscopic? YES; Appearance Urine Clear (Clear); Bacteria Urine Trace /hpf; Bilirubin Urine Negative (Negative); Blood Urine Negative (Negative); Color Urine Straw (Yellow); Glucose Urine UA 3+ mg/dL (Negative); Ketones Urine 2+ mg/dL (Negative); Leukocyte Esterase Ur Negative LEU/UL (NEGATIVE); Mucus Urine Rare /lpf; Nitrate Urine Negative (Negative); Protein Urine Negative (Negative); RBC Urine 0-2 /hpf (0-2); Specific Grav Ur 1.022 (1.001-1.035); Urobilinogen Urine Negative mg/dL (<2.0); WBC Urine 0-3 /hpf (0-3)
[2021-12-22 06:39] LABS: Glucose Point of Care 457 mg/dl (65-105)
[2021-12-22 06:56] LABS: Anion Gap 25 mmol/L (8-16); Blood Urea Nitrogen 42 mg/dL (7-17); Calcium 9.3 mg/dL (8.4-10.2); Carbon Dioxide 10 mmol/L (22-30); Chloride 106 mmol/L (98-107); Estimated CRCL calculation 45 ml/min; Estimated Glomerular Filt Rate > 60; Glucose 468 mg/dL (65-110); Potassium 3.8 mmol/L (3.4-5.0); Sodium 141 mmol/L (137-145)
[2021-12-22 07:46] LABS: Glucose Point of Care 396 mg/dl (65-105)
[2021-12-22 08:55] LABS: Glucose Point of Care 260 mg/dl (65-105)
[2021-12-22] MEDS: ENOXAPARIN 40 MG/0.4 ML SYRINGE SUB-Q (09:00)
[2021-12-22] MEDS: SODIUM CHLORIDE 0.9% IV 1,000 ML 999 ML IV CONT (09:00)
[2021-12-22 09:52] LABS: Glucose Point of Care 188 mg/dl (65-105)
[2021-12-22] MEDS: KCL 20 MEQ/D5/0.45% SOD CHL 1,000 ML 150 ML IV CONT (10:44)
[2021-12-22 10:53] LABS: Glucose Point of Care 160 mg/dl (65-105)
[2021-12-22 11:08] LABS: Anion Gap 11 mmol/L (8-16); Blood Urea Nitrogen 35 mg/dL (7-17); Calcium 9.2 mg/dL (8.4-10.2); Carbon Dioxide 18 mmol/L (22-30); Chloride 114 mmol/L (98-107); Estimated CRCL calculation 52 ml/min; Estimated Glomerular Filt Rate > 60; Glucose 127 mg/dL (65-110); Potassium 3.8 mmol/L (3.4-5.0); Sodium 143 mmol/L (137-145)
--- NOTE | 2021-12-22 11:44 | WPDCNINT ---
Assessment and Plan Assessment and plan (1) DKA (diabetic ketoacidosis): Qualifiers: Diabetes mellitus complication detail: without coma Diabetes mellitus type: type 1 Qualified Code(s): E10.10 - Type 1 diabetes mellitus with ketoacidosis without coma Code(s): E11.10 - Type 2 diabetes mellitus with ketoacidosis without coma Status: Acute Assessment and Plan: Patient presented with generalized weakness, dizziness, lightheadedness. Patient was found to be in diabetic ketoacidosis in the ER, given 2 L of IV fluid bolus and started on insulin infusion. -will give additional IV fluid bolus here in the ICU this morning -patient remains on insulin infusion, will transition once anion gap closes and her acidosis improves/resolves -hemoglobin A1c > 14.0 this admission -patient probably is noncompliant -will have dietitian and clinical rehabilitation liaison follow the patient (2) Venous insufficiency: Code(s): I87.2 - Venous insufficiency (chronic) (peripheral) Status: Acute Assessment and Plan: Patient has had history of venous insufficiency, patient was recently admitted here on 12/10/2021 and had an IO inserted in her lower extremity -a right IJ central line was inserted overnight for IV access (3) Hyperkalemia: Code(s): E87.5 - Hyperkalemia Status: Acute Assessment and Plan: Hyperkalemia likely due to severe metabolic acidosis which has resolved with insulin infusion, IV fluids and correction of the acidosis, likely related to diabetic ketoacidosis -continue to monitor (4) Pseudohyponatremia: Code(s): R79.89 - Other specified abnormal findings of blood chemistry Status: Acute Assessment and Plan: Pseudohyponatremia likely related to hyperglycemia, with fluids and insulin infusion and correction of hyperglycemia, sodium levels have normalized Plan DVT prophylaxis: Lovenox Stress ulcer prophylaxis: Not applicable Nutrition: Currently NPO, will start diabetic diet once patient is off her insulin infusion. May give her some ice chips in the meantime Code Status: Full code Critical Care Time Spent: 43 minutes Due to a high probability of clinically significant, life threatening deterioration, the patient required my highest level of preparedness to intervene emergently and I personally spent this critical care time directly and personally managing the patient. This critical care time included obtaining a history; examining the patient; pulse oximetry; ordering and review of studies; arranging urgent treatment with development of a management plan; evaluation of patient's response to treatment; frequent reassessment; and discussions with other providers. It was exclusive of separately billable procedures and treating other patients and teaching time. Please see Assessment and Plan section and the rest of the note for further information on patient assessment and treatment [facility] Consult Note Consult date: 12/22/21 HPI: Karly Leslie is a 71 year old female with past medical history diabetes type 2, diabetic neuropathy, hypothyroidism history of ovarian cancer in his 80s 33 status post hysterectomy, pneumonia secondary to COVID in September 2020, restless leg syndromes, shingles, fibromyalgia, depression presented to the ED on 12/21/2021 with complaints dizziness, feeling weak and lightheaded. Patient has a history of noncompliance and poor control of her diabetes. Stated she went with a friend to a bar and had a couple of beers. After which lightheaded and weak. She says she had not eaten all day on the day of admission. Patient was recently discharged on 12/14/2021 when she was admitted for diabetic ketoacidosis. In the ER patient was found to have a sodium of 119, potassium of 7.1, blood sugars of >800, anion gap of 29, bicarb of 10, creatinine 1.59, lactic 2.4, pH 7.16 pCO2 of 60 and PO2 of 109 on room air. Patient was given 2 L IV fluid bolus in the ER and started on
[2021-12-22 11:59] LABS: Glucose Point of Care 100 mg/dl (65-105)
[2021-12-22] MEDS: INSULIN GLARGINE (*BKC) 100 UNITS/ML 35 UNITS SUB-Q (11:59)
--- NOTE | 2021-12-22 12:20 | PCDIET ---
Consult for DKA with a history of HbA1c of >14%. Results may be due to pt not taking her insulin. Pt did not give me any information besides stating her appetite is good and no changes to wt... (I cannot provide any information regarding insulin dosing etc.)
[2021-12-22 12:58] LABS: Glucose Point of Care 100 mg/dl (65-105)
--- NOTE | 2021-12-22 13:13 | PCNSR ---
On 12/22/21, the student,Denys Haley, provided care and completed [facility] on this patient. I have reviewed the student's documentation and agree with the findings.
[2021-12-22 14:08] LABS: Glucose Point of Care 91 mg/dl (65-105)
--- NOTE | 2021-12-22 16:04 | PM.IMPN ---
Progress Note: A&P Assessment and Plan (1) DKA (diabetic ketoacidosis): Qualifiers: Diabetes mellitus complication detail: without coma Diabetes mellitus type: type 1 Qualified Code(s): E10.10 - Type 1 diabetes mellitus with ketoacidosis without coma Code(s): E11.10 - Type 2 diabetes mellitus with ketoacidosis without coma Status: Acute Assessment and Plan: admit to ICU strict NPO DKA protocol in progress 12/22/2021 interval history: patient is 71-year-old female with history of insulin dependent diabetes and history of recurrent hyperglycemia and DKA patient was just recently discharged from the hospital after she was treated for DKA 12/14/2021, patient again presented to ER with hyperglycemia and was in DKA, patient was transferred to ICU, was vigorously hydrated and started on IV insulin, patient is blood sugars are trending is off IV insulin and on long-acting insulin, will monitor patient overnight in ICU and transmitted medical floor tomorrow, again patient will see the environmental educator and further recommendation to follow. (2) Pseudohyponatremia: Code(s): R79.89 - Other specified abnormal findings of blood chemistry Status: Acute Assessment and Plan: likely secondary to hyperglycemia improving (3) Hyperkalemia: Code(s): E87.5 - Hyperkalemia Status: Acute Assessment and Plan: likely secondary to metabolic acidosis now resolved (4) High anion gap metabolic acidosis: Code(s): E87.29 - Other acidosis Status: Acute Assessment and Plan: secondary to diabetic ketoacidosis serial BMPs DKA protocol ongoing (5) Diabetic peripheral neuropathy: Code(s): E11.42 - Type 2 diabetes mellitus with diabetic polyneuropathy Status: Acute Assessment and Plan: supportive care Subjective Date/time seen: 12/22/21 16:04 generalized weakness HPI-Narrative: ?This 71-year-old female with past medical history significant for diabetes mellitus, insulin dependent, diabetic peripheral neuropathy, fibromyalgia, hypothyroidism, ovarian cancer, restless leg syndrome, chronic back pain.? Patient presented to outside hospital emergency room due to lightheadedness, weakness, according to history patient had been in her usual state of health she was recently discharged from [facility] after she was treated for diabetic ketoacidosis, she had met with her friend of her and went to have couple of beers but was feeling very tired, weak and lightheaded.? Preliminary workup was significant for ?SODIUM 119 POTASSIUM 7.1 BLOOD GLUCOSE 800? ANION GAP 29 BICARB OF 10 CREATININE 1.5 BUN 50 LACTIC ACID 2.4 AN ABG SHOWED A PH OF 7.16? PCO2 16 PO2 109. 12/22/2021 interval history: patient is 71-year-old female with history of insulin dependent diabetes and history of recurrent hyperglycemia and DKA patient was just recently discharged from the hospital after she was treated for DKA 12/14/2021, patient again presented to ER with hyperglycemia and was in DKA, patient was transferred to ICU, was vigorously hydrated and started on IV insulin, patient is blood sugars are trending is off IV insulin and on long-acting insulin, will monitor patient overnight in ICU and transmitted medical floor tomorrow, again patient will see the environmental educator and further recommendation to follow. Review of Systems Review of Systems: All systems reviewed & are unremarkable except as noted in HPI and below Exam Narrative: Patient is comfortable, NAD HEENT: eyes are clear and none icteric LUNGS: normal respiratory effort ABD: not distended Lower extremities: no edema SKIN: nonjaundiced Neuro: grossly intact. Objective Data Vital Signs Vital Signs: Vital Signs - 24 hr 12/22/21 02:55 12/22/21 02:30 12/22/21 05:00 Temperature 99.2 F 99.4 F Pulse Rate 90 92 87 Respiratory Rate 20 20 22 H Blood Pressure 140/56 L 147/56 H Pulse Oximetry 99 99 97
[2021-12-22 16:23] LABS: Glucose Point of Care 124 mg/dl (65-105)
[2021-12-22] MEDS: KETOROLAC 30 MG/ML VIAL (*BKC) IV PUSH (20:42)
[2021-12-22 20:50] LABS: Glucose Point of Care 237 mg/dl (65-105)
[2021-12-22] MEDS: INSULIN ASPART (*BKC) 100 UNITS/ML SUB-Q (21:03)
--- NOTE | 2021-12-22 21:19 | PC.NURSE ---
This patient, Karly Leslie, was transferred to [[id number]] on 12/22/21 at 2117. Personal belongings sent with patient. Report given to [SAMMY Alcantar]. Appropriate documentation sent with patient.
[2021-12-23] VITALS (12 sets, daily range): BP systolic 100–115; BP diastolic 46–65; PULSE 62–81; RESP 14–18; TEMP 36.4–36.9; O2SAT 97–100
--- NOTE | ~2021-12-23 | XR_ITS ---
EXAMINATION: XR chest port-a-cath/central DATE: 12/22/2021 05:05 INDICATION: Central line placement. TECHNIQUE: A single frontal view of the chest was obtained. COMPARISON: Chest single view 12/11/2021 FINDINGS: Skinfolds overlie left hemithorax. Calcified right lung nodules and calcified right hilar a nd mediastinal lymph nodes are consistent with old granulomatous disease. There is no pneumonia, pleu ral effusion, or pneumothorax. The heart size is normal. A right internal jugular central venous cath eter is seen with tip at the superior cavoatrial junction. IMPRESSION: 1. Central line tip at superior cavoatrial junction. Reviewed, dictated and finalized at location A.
[2021-12-23] MEDS: traMADol HCL (*CRX) 25 MG TABLET PO ×2 (03:06→20:22)
[2021-12-23 05:07] LABS: Basophils Percent Auto 0.5 % (0.2-1.2); Eosinophils Absolute Auto 0.1 K/mm3 (0-0.3); Eosinophils Percent Auto 1.7 % (0-4.4); Hematocrit 30.6 % (37.0-47.0); Hemoglobin 10.1 g/dL (12.0-15.0); Immature Granulocyte Absolute 0.03 K/mm3 (0.00-0.031); Immature Granulocyte Percent A 0.5 % (0-0.5); Lymphocytes Percent Auto 35.2 % (18.3-44.2); Mean Corpuscular Hemoglobin 31.6 pg (26-34); Mean Corpuscular Volume 95.6 fl (80-100); Mean Platelet Volume 8.6 fl (7.4-10.4); Monocytes Absolute Auto 0.4 K/mm3 (0.1-0.6); Monocytes Percent Auto 6.9 % (2.6-8.5); Neutrophils Absolute Auto 3.3 K/mm3 (1.3-6.7); Neutrophils Percent Auto 55.2 % (45.5-73.1); Platelet Count Result 217 k/mm3 (150-375); Red Cell Distribution Width 13.8 % (11.5-14.5)
[2021-12-23 05:22] LABS: Alanine Aminotransferase 17 U/L (6-35); Albumin Level 2.8 g/dL (3.5-5.1); Alkaline Phosphatase 82 U/L (38-126); Anion Gap 5 mmol/L (8-16); Aspartate Amino Transferase 22 U/L (14-36); Bilirubin,Total 0.4 mg/dL (0.2-1.3); Blood Urea Nitrogen 20 mg/dL (7-17); Calcium 9.1 mg/dL (8.4-10.2); Carbon Dioxide 22 mmol/L (22-30); Chloride 109 mmol/L (98-107); Estimated CRCL calculation 61 ml/min; Estimated Glomerular Filt Rate > 60; Glucose 60 mg/dL (65-110); Magnesium 1.8 mg/dL (1.6-2.3); Phosphorus 1.9 mg/dL (2.5-4.5); Potassium 3.3 mmol/L (3.4-5.0); Sodium 136 mmol/L (137-145)
[2021-12-23] MEDS: CENTRAL LINE FLUSH 10 ML IV PUSH ×3 (05:33→20:27)
[2021-12-23 08:48] LABS: Glucose Point of Care 57 mg/dl (65-105)
[2021-12-23 09:16] LABS: Glucose Point of Care 122 mg/dl (65-105)
[2021-12-23] MEDS: POTASSIUM CHLORIDE 20 MEQ TABLET 40 MEQ PO (09:49)
[2021-12-23] MEDS: ENOXAPARIN 40 MG/0.4 ML SYRINGE SUB-Q (09:50)
[2021-12-23 12:05] LABS: Glucose Point of Care 276 mg/dl (65-105)
[2021-12-23] MEDS: INSULIN GLARGINE (*BKC) 100 UNITS/ML 10 UNITS SUB-Q ×2 (12:05→20:23)
[2021-12-23] MEDS: INSULIN ASPART (*BKC) 100 UNITS/ML SUB-Q ×2 (12:06→17:23)
--- NOTE | 2021-12-23 14:13 | PC.NURSE ---
On 12/23/21, the student, [Sandrine Gerardo], provided care and completed [facility] documentation on this patient. I have reviewed the student's documentation and agree with the findings.
--- NOTE | 2021-12-23 14:30 | PM.IMPN ---
Progress Note: A&P Assessment and Plan (1) DKA (diabetic ketoacidosis): Qualifiers: Diabetes mellitus complication detail: without coma Diabetes mellitus type: type 1 Qualified Code(s): E10.10 - Type 1 diabetes mellitus with ketoacidosis without coma Code(s): E11.10 - Type 2 diabetes mellitus with ketoacidosis without coma Status: Acute Assessment and Plan: admit to ICU strict NPO DKA protocol in progress 12/23/2021 interval history: patient is 71-year-old female with history of insulin dependent diabetes and history of recurrent hyperglycemia and DKA patient was just recently discharged from the hospital after she was treated for DKA 12/14/2021, patient againon 12/22 presented to ER with hyperglycemia and was in DKA, patient was transferred to ICU, was vigorously hydrated and started on IV insulin, patient blood sugars are trending down and was off IV insulin and on long-acting insulin, was transferred out of ICU to medical floor, From ICU patient was started on Lantus 35 units and this morning patient was hypoglycemic, will reduce it down to 10 units q.day in a.m. and monitor, again patient will see the community educator and further recommendation to follow. (2) Pseudohyponatremia: Code(s): R79.89 - Other specified abnormal findings of blood chemistry Status: Acute Assessment and Plan: likely secondary to hyperglycemia improving (3) Hyperkalemia: Code(s): E87.5 - Hyperkalemia Status: Acute Assessment and Plan: likely secondary to metabolic acidosis now resolved (4) High anion gap metabolic acidosis: Code(s): E87.29 - Other acidosis Status: Acute Assessment and Plan: secondary to diabetic ketoacidosis serial BMPs DKA protocol ongoing (5) Diabetic peripheral neuropathy: Code(s): E11.42 - Type 2 diabetes mellitus with diabetic polyneuropathy Status: Acute Assessment and Plan: supportive care Subjective Date/time seen: 12/23/21 14:30 12/23/2021 interval history: patient is 71-year-old female with history of insulin dependent diabetes and history of recurrent hyperglycemia and DKA patient was just recently discharged from the hospital after she was treated for DKA 12/14/2021, patient againon 12/22 presented to ER with hyperglycemia and was in DKA, patient was transferred to ICU, was vigorously hydrated and started on IV insulin, patient blood sugars are trending down and was off IV insulin and on long-acting insulin, was transferred out of ICU to medical floor, From ICU patient was started on Lantus 35 units and this morning patient was hypoglycemic, will reduce it down to 10 units q.day in a.m. and monitor, again patient will see the community educator and further recommendation to follow. Review of Systems Review of Systems: All systems reviewed & are unremarkable except as noted in HPI and below Exam Narrative: Patient is comfortable, NAD HEENT: eyes are clear and none icteric LUNGS: normal respiratory effort ABD: not distended Lower extremities: no edema SKIN: nonjaundiced Neuro: grossly intact. Objective Data Vital Signs Vital Signs: Vital Signs - 24 hr 12/22/21 16:00 12/22/21 16:00 12/22/21 16:00 Temperature 97.9 F Pulse Rate 90 69 69 Respiratory Rate 19 19 Blood Pressure 105/56 L Pulse Oximetry 100 100 Oxygen Delivery Room Air 12/22/21 16:00 12/22/21 20:00 12/22/21 20:00 Temperature 97.7 F 98.1 F Pulse Rate 66 70 72 Respiratory Rate 17 15 Blood Pressure 105/56 L 103/64 Pulse Oximetry 100 100 Oxygen Delivery 12/22/21 20:00 12/23/21 00:00 12/23/21 02:55 Temperature 97.6 F Pulse Rate 72 68 72 Respiratory Rate 15 16 Blood Pressure 110/60 Pulse Oximetry 100 97 Oxygen Delivery Room Air 12/23/21 06:57 12/23/21 08:38 12/23/21 08:00 Temperature 98.2 F Pulse Rate 66 62 Respiratory Rate 14 14 Blood Pressure 100/57 L Pulse Oximet
[2021-12-23 17:17] LABS: Glucose Point of Care 268 mg/dl (65-105)
[2021-12-23 20:42] LABS: Glucose Point of Care 385 mg/dl (65-105)
[2021-12-24] VITALS (13 sets, daily range): BP systolic 110–130; BP diastolic 56–68; PULSE 66–88; RESP 14–18; TEMP 36.4–36.9; O2SAT 96–99
[2021-12-24 05:21] LABS: Hematocrit 32.5 % (37.0-47.0); Hemoglobin 10.9 g/dL (12.0-15.0); Mean Corpuscular HGB Conc 33.5 g/dl (32-36); Mean Corpuscular Hemoglobin 31.1 pg (26-34); Mean Corpuscular Volume 92.6 fl (80-100); Mean Platelet Volume 8.6 fl (7.4-10.4); Platelet Count Result 194 k/mm3 (150-375); Red Blood Count 3.51 M/mm3 (4.2-5.4); Red Cell Distribution Width 13.6 % (11.5-14.5)
[2021-12-24 05:33] LABS: Anion Gap 3 mmol/L (8-16); Blood Urea Nitrogen 11 mg/dL (7-17); Calcium 8.8 mg/dL (8.4-10.2); Carbon Dioxide 25 mmol/L (22-30); Chloride 103 mmol/L (98-107); Estimated CRCL calculation 86 ml/min; Estimated Glomerular Filt Rate > 60; Glucose 242 mg/dL (65-110); Magnesium 1.9 mg/dL (1.6-2.3); Potassium 3.6 mmol/L (3.4-5.0); Sodium 131 mmol/L (137-145)
[2021-12-24] MEDS: CENTRAL LINE FLUSH 10 ML IV PUSH ×3 (05:47→21:19)
[2021-12-24 09:12] LABS: Glucose Point of Care 219 mg/dl (65-105)
[2021-12-24] MEDS: INSULIN ASPART (*BKC) 100 UNITS/ML SUB-Q ×3 (09:27→17:13)
[2021-12-24] MEDS: ENOXAPARIN 40 MG/0.4 ML SYRINGE SUB-Q (09:27)
--- NOTE | 2021-12-24 12:05 | PM.IMPN ---
Progress Note: A&P Assessment and Plan (1) DKA (diabetic ketoacidosis): Qualifiers: Diabetes mellitus complication detail: without coma Diabetes mellitus type: type 1 Qualified Code(s): E10.10 - Type 1 diabetes mellitus with ketoacidosis without coma Code(s): E11.10 - Type 2 diabetes mellitus with ketoacidosis without coma Status: Acute Assessment and Plan: admit to ICU strict NPO DKA protocol in progress 12/24/2021 interval history: patient is 71-year-old female with history of insulin dependent diabetes and history of recurrent hyperglycemia and DKA patient was just recently discharged from the hospital after she was treated for DKA 12/14/2021, patient khalif devine 12/22 presented to ER with hyperglycemia and was in DKA, patient was transferred to ICU, was vigorously hydrated and started on IV insulin, patient blood sugars are trending down and she was off IV insulin and started on long-acting insulin, was transferred out of ICU to medical floor, From ICU patient was started on Lantus 35 units and on 12/23 morning patient was hypoglycemic, reduced it down to 10 units q.day in a.m. today patient blood sugars are trending below 200, will monitor 1 more day and again patient will see the nurse informatics educator and further recommendation to follow. (2) Pseudohyponatremia: Code(s): R79.89 - Other specified abnormal findings of blood chemistry Status: Acute Assessment and Plan: likely secondary to hyperglycemia improving (3) Hyperkalemia: Code(s): E87.5 - Hyperkalemia Status: Acute Assessment and Plan: likely secondary to metabolic acidosis now resolved (4) High anion gap metabolic acidosis: Code(s): E87.29 - Other acidosis Status: Acute Assessment and Plan: secondary to diabetic ketoacidosis serial BMPs DKA protocol ongoing (5) Diabetic peripheral neuropathy: Code(s): E11.42 - Type 2 diabetes mellitus with diabetic polyneuropathy Status: Acute Assessment and Plan: supportive care Subjective Date/time seen: 12/24/21 12:05 12/24/2021 interval history: patient is 71-year-old female with history of insulin dependent diabetes and history of recurrent hyperglycemia and DKA patient was just recently discharged from the hospital after she was treated for DKA 12/14/2021, patient khalif devine 12/22 presented to ER with hyperglycemia and was in DKA, patient was transferred to ICU, was vigorously hydrated and started on IV insulin, patient blood sugars are trending down and she was off IV insulin and started on long-acting insulin, was transferred out of ICU to medical floor, From ICU patient was started on Lantus 35 units and on 12/23 morning patient was hypoglycemic, reduced it down to 10 units q.day in a.m. today patient blood sugars are trending below 200, will monitor 1 more day and again patient will see the nurse informatics educator and further recommendation to follow. Review of Systems Review of Systems: All systems reviewed & are unremarkable except as noted in HPI and below Exam Narrative: Patient is comfortable, NAD HEENT: eyes are clear and none icteric LUNGS: normal respiratory effort ABD: not distended Lower extremities: no edema SKIN: nonjaundiced Neuro: grossly intact. Objective Data Vital Signs Vital Signs: Vital Signs - 24 hr 12/23/21 14:25 12/23/21 15:56 12/23/21 16:01 Temperature 98.4 F Pulse Rate 74 81 Respiratory Rate 18 Blood Pressure 106/46 L Pulse Oximetry 99 Oxygen Delivery Room Air 12/23/21 18:34 12/23/21 20:47 12/23/21 20:00 Temperature 98.1 F 97.7 F Pulse Rate 77 70 81 Respiratory Rate 16 16 Blood Pressure 109/48 L 115/65 Pulse Oximetry 100 98 Oxygen Delivery 12/23/21 20:00 12/24/21 00:00 12/24/21 02:00 Temperature 97.6 F Pulse Rate 70 73 76 Respiratory Rate 16 16 Blood Pressure 119/62 Pulse Oximetry 98 98 Oxygen Delivery Room Air
[2021-12-24 12:26] LABS: Glucose Point of Care 300 mg/dl (65-105)
[2021-12-24 17:06] LABS: Glucose Point of Care 342 mg/dl (65-105)
[2021-12-24 21:13] LABS: Glucose Point of Care 280 mg/dl (65-105)
[2021-12-24] MEDS: INSULIN GLARGINE (*BKC) 100 UNITS/ML 10 UNITS SUB-Q (21:19)
[2021-12-25] VITALS: PULSE 75
[2021-12-25 00:14] VITALS: BP 145/79; PULSE 66; RESP 16; TEMP 36.6; O2SAT 97
[2021-12-25 04:00] VITALS: PULSE 67
[2021-12-25 05:14] VITALS: BP 115/65; PULSE 64; RESP 16; TEMP 36.6; O2SAT 97
[2021-12-25] MEDS: CENTRAL LINE FLUSH 10 ML IV PUSH (06:09)
[2021-12-25 06:22] LABS: Hematocrit 32.5 % (37.0-47.0); Hemoglobin 10.9 g/dL (12.0-15.0); Mean Corpuscular HGB Conc 33.5 g/dl (32-36); Mean Corpuscular Hemoglobin 30.9 pg (26-34); Mean Corpuscular Volume 92.1 fl (80-100); Mean Platelet Volume 8.8 fl (7.4-10.4); Platelet Count Result 190 k/mm3 (150-375); Red Blood Count 3.53 M/mm3 (4.2-5.4); Red Cell Distribution Width 13.3 % (11.5-14.5); White Blood Count 4.1 K/mm3 (4.5-10.0)
[2021-12-25 06:33] LABS: Anion Gap 5 mmol/L (8-16); Blood Urea Nitrogen 9 mg/dL (7-17); Calcium 8.8 mg/dL (8.4-10.2); Carbon Dioxide 26 mmol/L (22-30); Chloride 101 mmol/L (98-107); Estimated CRCL calculation 86 ml/min; Estimated Glomerular Filt Rate > 60; Glucose 234 mg/dL (65-110); Magnesium 1.9 mg/dL (1.6-2.3); Potassium 3.3 mmol/L (3.4-5.0); Sodium 132 mmol/L (137-145)
[2021-12-25 08:00] VITALS: PULSE 64
[2021-12-25] MEDS: ENOXAPARIN 40 MG/0.4 ML SYRINGE SUB-Q (08:15)
[2021-12-25] MEDS: POTASSIUM CHLORIDE 20 MEQ TABLET 40 MEQ PO (08:15)
[2021-12-25 08:46] LABS: Glucose Point of Care 248 mg/dl (65-105)
[2021-12-25] MEDS: INSULIN ASPART (*BKC) 100 UNITS/ML SUB-Q ×2 (08:46→12:02)
[2021-12-25 10:03] VITALS: BP 116/68; PULSE 78; RESP 16; TEMP 36.6; O2SAT 99
--- NOTE | 2021-12-25 10:28 | PM.DS ---
DS: Admitting Diagnosis Discharge Date 12/25/2021 Admitting Diagnosis generalized weakness DKA DS: Discharge Diagnosis Discharge Diagnosis (1) DKA (diabetic ketoacidosis): Qualifiers: Diabetes mellitus complication detail: without coma Diabetes mellitus type: type 1 Qualified Code(s): E10.10 - Type 1 diabetes mellitus with ketoacidosis without coma Code(s): E11.10 - Type 2 diabetes mellitus with ketoacidosis without coma Status: Acute Assessment and Plan: admit to ICU strict NPO DKA protocol in progress 12/24/2021 interval history: patient is 71-year-old female with history of insulin dependent diabetes and history of recurrent hyperglycemia and DKA patient was just recently discharged from the hospital after she was treated for DKA 12/14/2021, patient khalif devine 12/22 presented to ER with hyperglycemia and was in DKA, patient was transferred to ICU, was vigorously hydrated and started on IV insulin, patient blood sugars are trending down and she was off IV insulin and started on long-acting insulin, was transferred out of ICU to medical floor, From ICU patient was started on Lantus 35 units and on 12/23 morning patient was hypoglycemic, reduced it down to 10 units q.day in a.m. today patient blood sugars are trending below 200, will monitor 1 more day and again patient will see the environmental educator and further recommendation to follow. (2) Pseudohyponatremia: Code(s): R79.89 - Other specified abnormal findings of blood chemistry Status: Acute Assessment and Plan: likely secondary to hyperglycemia improving (3) Hyperkalemia: Code(s): E87.5 - Hyperkalemia Status: Acute Assessment and Plan: likely secondary to metabolic acidosis now resolved (4) High anion gap metabolic acidosis: Code(s): E87.29 - Other acidosis Status: Acute Assessment and Plan: secondary to diabetic ketoacidosis serial BMPs DKA protocol ongoing (5) Diabetic peripheral neuropathy: Code(s): E11.42 - Type 2 diabetes mellitus with diabetic polyneuropathy Status: Acute Assessment and Plan: supportive care DS: Summary Hospital Course Reason for hospitalization: Chief Complaint: ?generalized weakness Narrative: ?This 71-year-old female with past medical history significant for diabetes mellitus, insulin dependent, diabetic peripheral neuropathy, fibromyalgia, hypothyroidism, ovarian cancer, restless leg syndrome, chronic back pain.? Patient presented to outside hospital emergency room due to lightheadedness, weakness, according to history patient had been in her usual state of health she was recently discharged from [facility] after she was treated for diabetic ketoacidosis, she had met with her friend of her and went to have couple of beers but was feeling very tired, weak and lightheaded.? Preliminary workup was significant for ?SODIUM 119 POTASSIUM 7.1 BLOOD GLUCOSE 800? ANION GAP 29 BICARB OF 10 CREATININE 1.5 BUN 50 LACTIC ACID 2.4 AN ABG SHOWED A PH OF 7.16? PCO2 16 PO2 109 Hospital Course: patient is 71-year-old female with history of insulin dependent diabetes and history of recurrent hyperglycemia and DKA patient was just recently discharged from the hospital after she was treated for DKA 12/14/2021,? patient khalif devine 12/22? presented to ER with hyperglycemia and was in DKA, patient was transferred to ICU, was vigorously hydrated and started on IV insulin, patient blood sugars are trending down and she was? off IV insulin and started on long-acting insulin, was transferred out of ICU to medical floor, From ICU patient was started on Lantus 35 units and on 12/23? morning patient was hypoglycemic, reduced it down to 10 units q.day in a.m. today patient blood sugars are trending below 200, will monitor 1 more day and? again patient will see the environmental educator and further recommendation to follow. today patient clinically stable her
[2021-12-25 12:03] LABS: Glucose Point of Care 322 mg/dl (65-105)
== END 2021-12-25 12:55 | disposition home or self-care (01) | DRG 639 ==
LOC: ANH2MED 12-25 11:21 → ANHICU 12-29 09:51
PROVIDERS: Internal Medicine; Admitting Provider Family Medicine; Visit Provider Family Medicine
DX: E11.10 Type 2 diabetes mellitus with ketoacidosis without coma (principal); E11.42 Type 2 diabetes mellitus with diabetic polyneuropathy; E87.5 Hyperkalemia; R79.89 Other specified abnormal findings of blood chemistry; E78.5 Hyperlipidemia, unspecified; E03.9 Hypothyroidism, unspecified; G25.81 Restless legs syndrome; M79.7 Fibromyalgia; M54.9 Dorsalgia, unspecified; G89.29 Other chronic pain; I87.2 Venous insufficiency (chronic) (peripheral); Z28.21 Immunization not carried out because of patient refusal; Z79.4 Long term (current) use of insulin; Z79.85 Long-term (current) use of injectable non-insulin antidiabetic drugs; Z85.43 Personal history of malignant neoplasm of ovary; Z86.16 Personal history of COVID-19
CPT/HCPCS: 36415; 80048; 80053; 81001; 82948; 83036; 83735; 84100; 85025; 85027; 97161; 97165; A9270; C1751; J0131; J1170; J1650; J1815; J1885; J2405; J3480; J7030

== ENCOUNTER 2022-01-03 14:13 | Inpatient (IN) | payer MEDICARE, OTHER, SELFPAY ==
--- NOTE | ~2022-01-03 | CT_ITS ---
EXAMINATION: CT brain wo con DATE: 01/03/2022 20:40 INDICATION: ams . TECHNIQUE: Computed tomography (CT) of the head was performed without intravenous contrast. The mA wa s adjusted according to patient size. Iterative reconstruction technique was employed. The dose-lengt h product was 605.33 mGy-cm. COMPARISON: 06/13/2021 FINDINGS: No acute intracranial hemorrhage or extra-axial fluid collection. No hydrocephalus, mass, or herniation. No acute ischemic infarct. Unremarkable dural venous sinus attenuation. No acute osseous abnormality. Trace left mastoid fluid, the remaining aerated spaces are clear. Mild atrophy and chronic white matter change. Atherosclerotic calcifications. IMPRESSION: No acute intracranial process. Reviewed, dictated and finalized at location K. VERY STOCK CLERK
--- NOTE | ~2022-01-03 | CT_ITS ---
EXAMINATION: CT abdomen pelvis w con DATE: 01/03/2022 20:49 INDICATION: abd pain TECHNIQUE: Computed tomography (CT) of the abdomen and pelvis was performed with 100 mL Omnipaque-350 intravenous contrast. Automated exposure control and iterative reconstruction technique were employe d. The dose-length product was 405.25 mGy-cm. COMPARISON: 12/10/2021. FINDINGS: Exam limited by motion artifact and arm down positioning. Lower thorax: Left basilar scar. Liver: Normal. Biliary/Gallbladder: Gallbladder is normal. No bile duct dilation. Pancreas: No mass or duct dilation. Spleen: Normal. Adrenals:No mass. Kidneys: No mass, stone, or hydronephrosis. GI tract: Distal esophageal and antral gastric wall edema. Fluid and gas distended stomach, similar t o the prior exam. No small or large bowel dilation. Normal appendix Mesentery/Peritoneum: No ascites, mass, or free air. Retroperitoneum: No mass. Atherosclerotic abdominal aortic and/or arterial calcifications. Pelvis: Absent uterus. Dilated urinary bladder.. Soft Tissues: Right femoral central venous line terminating near the bifurcation of the left and righ t common femoral veins. Subcutaneous gas in the left inguinal region and adductor musculature. 2.5 cm soft tissue density in the left inguinal region with surrounding fluid/inflammatory change and a tin y blush of amorphous hyperintensity likely representing extravasation. Bones: No acute osseous finding. IMPRESSION: 2.5 cm left inguinal hematoma, with a small focus of active extravasation. Stable gastric distention. Dilated urinary bladder. Results reported telephonically to Dr. Win by Dr. Ogden at 8:58 PM on 01/03/2022. Reviewed, dictated and finalized at location K. ARCH INSTRUMENTATION TECHNICIAN IMPRESSION: 2.5 cm left inguinal hematoma, with a small focus of active extravasation. Stab le gastric distention. Dilated urinary bladder. Results reported telephonically to Dr. Win by Dr. Ogden at 8:58 PM on 01/03/2022.
[2022-01-03 14:26] VITALS: BP 136/73; PULSE 85; RESP 20; TEMP 36.1; O2SAT 100
[2022-01-03 15:00] LABS: Basophils Absolute Auto 0.1 K/mm3 (0.0-0.1); Basophils Percent Auto 0.6 % (0.2-1.2); Eosinophils Absolute Auto 0.1 K/mm3 (0-0.3); Eosinophils Percent Auto 0.8 % (0-4.4); Hematocrit 49.5 % (37.0-47.0); Immature Granulocyte Absolute 0.05 K/mm3 (0.00-0.031); Immature Granulocyte Percent A 0.6 % (0-0.5); Lymphocytes Percent Auto 18.7 % (18.3-44.2); Mean Corpuscular HGB Conc 30.3 g/dl (32-36); Mean Corpuscular Hemoglobin 31.1 pg (26-34); Mean Corpuscular Volume 102.7 fl (80-100); Monocytes Absolute Auto 0.7 K/mm3 (0.1-0.6); Monocytes Percent Auto 7.7 % (2.6-8.5); Neutrophils Absolute Auto 6.5 K/mm3 (1.3-6.7); Neutrophils Percent Auto 71.6 % (45.5-73.1); Platelet Count Result 408 k/mm3 (150-375); Red Blood Count 4.82 M/mm3 (4.2-5.4); Red Cell Distribution Width 13.8 % (11.5-14.5); White Blood Count 9.1 K/mm3 (4.5-10.0)
[2022-01-03 15:00] LABS: Appearance Urine Clear (Clear); Bilirubin Urine 1+ (Negative); Blood Urine Trace-lysed (Negative); Color Urine Yellow (Yellow); Glucose Urine UA 2+ mg/dL (Negative); Ketones Urine 4+ mg/dL (Negative); Leukocyte Esterase Ur Negative LEU/UL (Negative); Nitrate Urine Negative (Negative); Protein Urine 1+ mg/dL (Negative); Specific Grav Ur 1.025 (1.001-1.035); Urobilinogen Urine 0.2 mg/dL (<2.0)
[2022-01-03 15:10] LABS: Alanine Aminotransferase 23 U/L (6-35); Albumin Level 4.9 g/dL (3.5-5.1); Alkaline Phosphatase 157 U/L (38-126); Anion Gap 29 mmol/L (8-16); Aspartate Amino Transferase 22 U/L (14-36); Bilirubin,Total 0.5 mg/dL (0.2-1.3); Blood Urea Nitrogen 22 mg/dL (7-17); Calcium 11.2 mg/dL (8.4-10.2); Carbon Dioxide 7 mmol/L (22-30); Chloride 98 mmol/L (98-107); Estimated CRCL calculation 59 ml/min; Estimated Glomerular Filt Rate > 60; Glucose 474 mg/dL (65-110); Lipase 113 U/L (23-300); Potassium 4.9 mmol/L (3.4-5.0); Sodium 134 mmol/L (137-145)
[2022-01-03 15:33] LABS: Bacteria Urine Trace /hpf; Mucus Urine Rare /lpf; Squamous Epithelial Cell Urine Rare /hpf (Few)
[2022-01-03 15:35] LABS: Add Urine Microscopic? YES
--- NOTE | 2022-01-03 18:12 | PC.NURSE ---
pt has c/o low back pain since Monday and reports elevated BS in the 300s x 3 days
--- NOTE | 2022-01-03 18:14 | ECG_ITS ---
Measurements Intervals [place] Rate: 115 P: 76 LA: 180 QRS: 48 QRSD: 91 T: -85 QT: 300 QTc: 416 Interpretive Statements SINUS TACHYCARDIA VENTRICULAR PREMATURE COMPLEX POSSIBLE RIGHT ATRIAL ENLARGEMENT POSSIBLE LEFT ATRIAL ENLARGEMENT CANNOT RULE OUT SEPTAL INFARCT, AGE INDETERMINATE ST-T WAVE ABNORMALITY IN ANTEROLAT/INF LEADS- CONSIDER ISCHEMIA BASELINE ARTIFACT- I, III, AVL, V6 ABNORMAL ECG COMPARED TO ECG 12/21/2021 22:50:46 CANNOT RULE OUT SEPTAL INFARCT, AGE INDETERMINATE NOW PRESENT ST-T WAVE ABNORMALITY IN ANTEROLAT/INF LEADS- CONSIDER ISCHEMIA NOW PRESENT Electronically Signed On 01-04-2022 6:47:16 [employer]B [employer] SPECIALIST by Unruly Panchal D.O.
--- NOTE | 2022-01-03 18:23 | ED.GENADULT ---
HPI - General Adult General Chief complaint: Nausea/Vomiting/Diarrhea <PETR Briceño Last Filed: 01/03/22 21:56> Stated complaint: high blood sugars <PETR Briceño Last Filed: 01/03/22 21:56> Time Seen by Provider: 01/03/22 18:17 <PETR Briceño Last Filed: 01/03/22 21:56> History of Present Illness HPI narrative: Patient is a 71-year-old female with a history of diabetes here for evaluation of generalized weakness, nausea, vomiting x3 days. Has been unable to keep any p.o. down. Patient states that her blood sugars have been elevated at home over 300s. Denies any chest pain, shortness of breath, fevers or chills. Per chart review, patient was admitted to the ICU twice in November due to DKA. Reportedly patient is noncompliant with her insulin. <PETR Briceño Last Filed: 01/03/22 21:56> Related Data Home medications: Home Medications Medication Instructions Recorded Confirmed dulaglutide 0.75 mg/0.5 mL 0.75 mg subcut WEEKLY 12/10/21 12/22/21 subcutaneous pen injector ([facility]) pramipexole 1.5 mg tablet 3 mg PO HS 12/22/21 12/22/21 <PETR Briceño Last Filed: 01/03/22 21:56> Allergies/adverse reactions: Allergies Allergy/AdvReac Type Severity Reaction Status Date / Time banana Allergy Severe SEVERE Verified 12/21/21 20:18 HIVES acetaminophen [From Tylenol] AdvReac Intermediate Nausea and Verified 12/21/21 20:18 Vomiting aspirin AdvReac Intermediate Nausea and Verified 12/21/21 20:18 Vomiting fluoxetine [From Prozac] AdvReac Hallucinati Verified 12/21/21 20:18 ng <PETR Briceño Last Filed: 01/03/22 21:56> Review of Systems Review of Systems: Gen: Reports weakness. Denies fevers or chills Eyes: Denies eye pain or visual change ENT: Denies congestion Respiratory: Denies shortness of breath or cough CV: Denies chest pain or palpitations GI: Reports nausea, vomiting and diarrhea. : denies burning, urgency, frequency or hematuria Musculoskeletal: Denies back pain or muscle pain Neuro: Denies numbness, tingling, weakness or focal weakness Skin: Denies rash Except as documented, all other systems reviewed and negative <Ava Cantu PA-C - Last Filed: 01/03/22 21:56> [facility] Past Medical History Medical History: Medical History Back pain Depression Diabetic peripheral neuropathy Fibromyalgia Hypothyroidism Memory change Ovarian cancer At the age of 33, status post hysterectomy. Patient states that half an ovary was left during surgery. She required no further treatment. Pneumonia due to COVID-19 virus (~09/2020) Restless leg syndrome Shingles Type 2 diabetes mellitus Hemoglobin A1c was > 14% August 2021 C-peptide 0.63. <Ava Cantu PA-C - Last Filed: 01/03/22 21:56> Surgical History Surgical History: Surgical History History of tonsillectomy (~1970) History of total hysterectomy with bilateral salpingo-oophorectomy (BSO) (~1983) History of tubal ligation (~1983) <Ava Cantu PA-C - Last Filed: 01/03/22 21:56> Family History Family History: Family History Grandparent Family history of premature coronary heart disease, Onset Age: 64 Father Family history of respiratory disorder, Onset Age: 87 Family history of cardiovascular disease Patient's father is Family history of Alzheimer's disease Cerebrovascular accident Mother Family history of primary malignant neoplasm of liver, Onset Age: 64 Family history of malignant neoplasm Patient's mother is , Onset Age: 64 Family history of malignant neoplasm of breast in first degree relative Sibling Heart attack Sibling Heart attack <E
[2022-01-03 18:30] LABS: Basophils Absolute Auto 0.1 K/mm3 (0.0-0.1); Basophils Percent Auto 0.5 % (0.2-1.2); Eosinophils Percent Auto 0.2 % (0-4.4); Hematocrit 45.3 % (37.0-47.0); Hemoglobin 13.3 g/dL (12.0-15.0); Immature Granulocyte Absolute 0.15 K/mm3 (0.00-0.031); Immature Granulocyte Percent A 1.1 % (0-0.5); Lymphocytes Absolute Auto 1.64 K/mm3 (0.9-3.2); Lymphocytes Percent Auto 12.5 % (18.3-44.2); Mean Corpuscular HGB Conc 29.4 g/dl (32-36); Mean Corpuscular Hemoglobin 30.9 pg (26-34); Mean Corpuscular Volume 105.3 fl (80-100); Mean Platelet Volume 9.2 fl (7.4-10.4); Monocytes Absolute Auto 0.7 K/mm3 (0.1-0.6); Neutrophils Absolute Auto 10.6 K/mm3 (1.3-6.7); Neutrophils Percent Auto 80.7 % (45.5-73.1); Platelet Count Result 431 k/mm3 (150-375); White Blood Count 13.1 K/mm3 (4.5-10.0)
[2022-01-03 18:31] LABS: Base Excess ABG -26.3 mEq/l (+/-2.0); Carboxyhemoglobin 3.6 % THb (0-2.0); Fractional Inspired Oxygen 21 %; HCO3 ABG 2.7 mEq/l (22.0-26.0); Methemoglobin ABG 0.5 %THb (0-1.5); Oxygen Content ABG 19.7 %vol (16.0-22.0); Oxygen Saturation ABG 98.9 % (95.0-100.0); Oxyhemoglobin 94.5 % THb (90.0-100.0); PO2 ABG 213.1 mmHg (80.0-100.0); Reduced Hemoglobin 1.4 %THb (0-5.0); Total Hemoglobin 14.5 g/dL (12.0-18.0)
[2022-01-03 18:33] LABS: pH ABG 7.017 (7.350-7.450)
[2022-01-03 18:34] LABS: Device ROOM AIR; Modified Allen's Test Pass; PCO2 ABG 10.9 mmHg (35.0-45.0); Site Drawn RIGHT RADIAL
[2022-01-03 18:39] LABS: INR 1.2; Partial Thromboplastin Time 26.6 SECONDS (22.3-36.8); Prothrombin Time 14.7 Seconds (11.1-14.7)
[2022-01-03 18:44] LABS: Lactic Acid Reflex 1.4 mmol/L (0.7-2.0)
[2022-01-03 18:52] LABS: Magnesium 2.5 mg/dL (1.6-2.3); Phosphorus 6.3 mg/dL (2.5-4.5)
[2022-01-03 18:55] LABS: Hypochromasia 1+ (NORMAL); Platelet Estimate Increased (Adequate); Schistocytes None Seen (NORMAL)
[2022-01-03 19:00] LABS: Troponin I < 0.012 ng/mL (0.000-0.034)
--- NOTE | 2022-01-03 19:15 | PC.NURSE ---
multiple attempts to place by central line by Dr Patton-unsuccessful attempts to right IJ and left femoral Dr Varghese to room- new attempt to right femoral- successful small hematoma to left side of groin, sandbag placed per order from Dr Varghese
[2022-01-03 19:53] VITALS: BP 171/82; PULSE 116; RESP 18; O2SAT 95
[2022-01-03] MEDS: SODIUM CHLORIDE 0.9% IV 1,000 ML 999 ML IV CONT ×2 (19:55→20:14)
[2022-01-03] MEDS: INSULIN HUMAN REGULAR (*BKC) 100 UNITS/ML 8 UNITS IV PUSH (19:55)
[2022-01-03 20:08] LABS: Glucose Point of Care > 500 mg/dl (65-105)
--- NOTE | 2022-01-03 20:13 | ED.PROCEDURE ---
Procedures Central Line Placement Right Femoral: Central Line Date: 01/03/22 Discussed w/ the patient/family/POA,the placement of a central venous catheter, including its clinical necessity/indication & associated potential risks, benifits and alternatives.: Yes Consent: I have discussed with the patient and/or surrogate, the non-emergent placement of a central venous catheter, including its clinical necessity/indication and associated potential risks and complications. The patient and/or surrogate understand(s) and acknowledge(s) the need to proceed with central venous catheter insertion as an important element of the patient's clinical management. Time Out Performed: Yes Patient Position: supine Patient placed on monitor/pulse ox: Yes Provider Prep: mask, sterile gown, sterile gloves, Max. sterile barrier precautions and hand hygiene with conventional soap/water or alcohol based hand rub Central line prep: 2% Chlorhexidine scrub and sterile full body sheet applied Local anesthesia used: lidocaine 2% Sterile US Technique with sterile gel/sterile probe covers: Yes Central line lumen inserted: triple Post Procedure: sutured in place, good blood return, transparent dressing, antimicrobial product, securement product and aseptic technique maintained throughout procedure Patient tolerated procedure: well Additional comments: central line placed in the right femoral vein due to diabetic ketoacidosis and severely restricted peripheral access and multiple attempts at central access.
[2022-01-03 20:52] LABS: Blood Urea Nitrogen 24 mg/dL (7-17); Calcium 10.1 mg/dL (8.4-10.2); Carbon Dioxide < 5 mmol/L (22-30); Chloride 107 mmol/L (98-107); Estimated CRCL calculation 47 ml/min; Estimated Glomerular Filt Rate > 60; Glucose 599 mg/dL (65-110); Potassium 4.3 mmol/L (3.4-5.0); Sodium 138 mmol/L (137-145)
[2022-01-03 21:00] LABS: Hemoglobin A1C > 14.0 % (<5.7)
[2022-01-03 21:05] LABS: Influenza A QL RT-PCR Negative (Negative); Influenza B QL RT-PCR Negative (Negative); SARS-CoV-2 RNA PCR Negative
--- NOTE | 2022-01-03 21:19 | PC.NURSE ---
c/o substernal CP at this time. Pt states it feels like someone sitting on me. ERP notified EKG in progress at this time
--- NOTE | 2022-01-03 21:30 | PM.IMHP ---
H&P: HPI History of Present Illness Date/Time: 01/03/22 21:30 Chief Complaint: nausea, vomiting. Narrative: This is a 71-year-old female with past medical history significant for insulin-dependent diabetes mellitus, patient just recently discharged from [facility] after being treated for DKA. She returns today with nausea vomiting not feeling well for the last 3 days. most of the history has been obtained upon reviewing medical records. At the time of my visit patient was stuporous unable to give any history. preliminary workup was significant for anion gap of 29, an ABG showed a pH of 7.021, pCO2 10 PO2 200, a blood glucose was in the 500s. a CT of abdomen and pelvis was reported as: IMPRESSION: 2.5 cm left inguinal hematoma, with a small focus of active extravasation. Stable gastric distention. Dilated urinary bladder. a head CT was reported as: IMPRESSION:? No acute intracranial process. Review of Systems Review of Systems: ROS unobtainable: Yes unobtainable due to mental status ( stuporous) [facility] Past Medical History Medical History Back pain Depression Diabetic peripheral neuropathy Fibromyalgia Hypothyroidism Memory change Ovarian cancer At the age of 33, status post hysterectomy. Patient states that half an ovary was left during surgery. She required no further treatment. Pneumonia due to COVID-19 virus (~09/2020) Restless leg syndrome Shingles Type 2 diabetes mellitus Hemoglobin A1c was > 14% August 2021 C-peptide 0.63. Surgical History Surgical History History of tonsillectomy (~1970) History of total hysterectomy with bilateral salpingo-oophorectomy (BSO) (~1983) History of tubal ligation (~1983) Family History Family History Grandparent Family history of premature coronary heart disease, Onset Age: 64 Father Family history of respiratory disorder, Onset Age: 87 Family history of cardiovascular disease Patient's father is Family history of Alzheimer's disease Cerebrovascular accident Mother Family history of primary malignant neoplasm of liver, Onset Age: 64 Family history of malignant neoplasm Patient's mother is , Onset Age: 64 Family history of malignant neoplasm of breast in first degree relative Sibling Heart attack Sibling Heart attack Social History Social History Social History: The patient is . She lives in her own home in [place], [place] with her daughter Jose. She does not work. She has 2 daughters, and designates her daughter Jose Posey, as her surrogate decision maker. She wishes to be a do not resuscitate. She is a lifelong nonsmoker. She drinks perhaps 4-12 alcoholic beverages a week. No drug use. Smoking status: Never smoker Second hand tobacco smoke exposure: No Alcohol intake: current Drinks per week: 4 Substance use: never Substance use type: does not use Other substance usage details: denies Has the Lack of Transportation Kept You From Medical Appointments or From Getting Medications?: No Within the Past 12 Months, Were You Worried Whether Your Food Would Run Out Before You Got Money to Buy More?: Never True What is Your Housing Situation Today?: I Have Housing Are You Worried That in the Next 2 Months, You May Not Have Your Own Housing to Live In?: No Do You Have Trouble Paying Your Heating Or Electricity Bill?: No Do You Have Trouble Paying For Medicines?: No Are You Currently Unemployed and Looking for Work?: No Highest Level of Education Completed: High School Diploma/GED Do You Have Trouble With Childcare or the Care of a Family Member?: No Sexual Orientation (if Verbalized by the Patient): Straight or Heterosexual Spiritual care concerns: No
[2022-01-03] MEDS: LORazepam INJ (*CRX) 2 MG/ML VIAL 0.5 MG IV PUSH (21:35)
--- NOTE | 2022-01-03 21:38 | ECG_ITS ---
Measurements Intervals [place] Rate: 117 P: [place]: 0 QRS: 39 QRSD: 97 T: 239 QT: 294 QTc: 411 Interpretive Statements ATRIAL FLUTTER/TACHYCARDIA WITH RAPID VENTRICULAR RESPONSE CANNOT RULE OUT SEPTAL INFARCT, AGE INDETERMINATE ST-T WAVE ABNORMALITY IN DIFFUSE LEADS- CONSIDER ISCHEMIA BASELINE ARTIFACT- I, II, III, AVR, AVL, AVF, V1-V6 ABNORMAL ECG COMPARED TO ECG 01/03/2022 19:59:48 ATRIAL FLUTTER/TACHYCARDIA WITH RAPID VENTRICULAR RESPONSE NOW PRESENT Electronically Signed On 01-04-2022 8:08:46 IT CONSULTING DIRECTOR by Unruly Panchal D.O.
[2022-01-03] MEDS: INSULIN HUMAN REGULAR (*BKC) 100 UNITS in SODIUM CHLORIDE 0.9% IV 99 ML 10.78 UNITS IV CONT (21:48)
[2022-01-03] MEDS: SODIUM CHLORIDE 0.9% IV 1,000 ML 125 ML (22:01)
[2022-01-03] MEDS: SODIUM BICARBONATE 8.4% 50 MEQ/50 ML SYRINGE 100 MEQ IV PUSH (22:01)
[2022-01-03 22:13] LABS: Glucose Point of Care 493 mg/dl (65-105)
[2022-01-03 22:30] LABS: Troponin I 0.023 ng/mL (0.000-0.034)
--- NOTE | 2022-01-03 22:33 | PC.NURSE ---
at this time, patient is confused and pulling on her lines and took her gown off. continues to c/o chest and back pain. Provider aware.
[2022-01-03 22:38] VITALS: BP 128/88; PULSE 135; RESP 29; O2SAT 93
[2022-01-03 23:00] VITALS: BP 152/86; PULSE 124; RESP 26; TEMP 36.2; O2SAT 100
[2022-01-03 23:05] LABS: Anion Gap 29 mmol/L (8-16); Blood Urea Nitrogen 25 mg/dL (7-17); Carbon Dioxide 14 mmol/L (22-30); Chloride 108 mmol/L (98-107); Estimated CRCL calculation 59 ml/min; Estimated Glomerular Filt Rate > 60; Glucose 488 mg/dL (65-110); Potassium 4.3 mmol/L (3.4-5.0); Sodium 151 mmol/L (137-145)
[2022-01-03 23:14] LABS: Glucose Point of Care > 500 mg/dl (65-105)
[2022-01-03] MEDS: CENTRAL LINE FLUSH 10 ML IV PUSH (23:19)
--- NOTE | 2022-01-03 23:30 | ADMGEN ---
This patient, Karly Leslie, was admitted to Intensive Care Unit-7 on 01/03/2022 at 2300. Patient/family oriented to hospital policies and general routines including ID bracelet, bed and alarms, visiting hours, pain management, procedures, bathroom and other care routines, personal items, smoking policy, room service/diet, and visiting hours. Information on how to activate the Rapid Response Team has been discussed. Patient/Family are encouraged to report perceived risks to care and to ask questions if they do not understand what they are told or what they should do.
[2022-01-03 23:35] VITALS: BMI 24.3
[2022-01-04] VITALS (10 sets, daily range): BP systolic 98–138; BP diastolic 43–105; PULSE 70–122; RESP 12–16; TEMP 36.7–37.4; O2SAT 95–100; BMI 24.3
[2022-01-04 00:24] LABS: Glucose Point of Care 331 mg/dl (65-105)
[2022-01-04] MEDS: SODIUM CHLORIDE 0.45% 1,000 ML 150 ML IV CONT (00:25)
[2022-01-04] MEDS: SODIUM BICARBONATE 8.4% 50 MEQ/50 ML SYRINGE 100 MEQ IV PUSH (00:25)
[2022-01-04] MEDS: KCL 20 MEQ/D5/0.45% SOD CHL 1,000 ML 150 ML IV CONT (01:28)
[2022-01-04 01:33] LABS: Glucose Point of Care 246 mg/dl (65-105)
[2022-01-04 02:35] LABS: Glucose Point of Care 224 mg/dl (65-105)
[2022-01-04 02:46] LABS: Anion Gap 14 mmol/L (8-16); Blood Urea Nitrogen 21 mg/dL (7-17); Calcium 9.3 mg/dL (8.4-10.2); Carbon Dioxide 15 mmol/L (22-30); Chloride 113 mmol/L (98-107); Estimated CRCL calculation 63 ml/min; Estimated Glomerular Filt Rate > 60; Glucose 221 mg/dL (65-110); Potassium 3.4 mmol/L (3.4-5.0); Sodium 142 mmol/L (137-145)
[2022-01-04 03:43] LABS: Glucose Point of Care 193 mg/dl (65-105)
[2022-01-04 04:55] LABS: Glucose Point of Care 162 mg/dl (65-105)
[2022-01-04 05:52] LABS: Glucose Point of Care 129 mg/dl (65-105)
[2022-01-04 06:51] LABS: Glucose Point of Care 116 mg/dl (65-105)
[2022-01-04] MEDS: CENTRAL LINE FLUSH 10 ML IV PUSH ×4 (06:52→20:08)
[2022-01-04 06:58] LABS: Hematocrit 31.4 % (37.0-47.0); Hemoglobin 10.4 g/dL (12.0-15.0); Mean Corpuscular HGB Conc 33.1 g/dl (32-36); Mean Corpuscular Volume 96.6 fl (80-100); Mean Platelet Volume 9.1 fl (7.4-10.4); Platelet Count Result 197 k/mm3 (150-375); Red Blood Count 3.25 M/mm3 (4.2-5.4); Red Cell Distribution Width 13.9 % (11.5-14.5); White Blood Count 10.1 K/mm3 (4.5-10.0)
[2022-01-04 07:04] LABS: Anion Gap 5 mmol/L (8-16); Blood Urea Nitrogen 19 mg/dL (7-17); Calcium 9.2 mg/dL (8.4-10.2); Carbon Dioxide 23 mmol/L (22-30); Chloride 114 mmol/L (98-107); Estimated CRCL calculation 76 ml/min; Estimated Glomerular Filt Rate > 60; Glucose 107 mg/dL (65-110); Magnesium 1.9 mg/dL (1.6-2.3); Phosphorus 1.1 mg/dL (2.5-4.5); Potassium 3.2 mmol/L (3.4-5.0); Sodium 142 mmol/L (137-145)
[2022-01-04 07:46] LABS: Glucose Point of Care 94 mg/dl (65-105)
[2022-01-04 08:53] LABS: Glucose Point of Care 85 mg/dl (65-105)
[2022-01-04] MEDS: INSULIN GLARGINE (*BKC) 100 UNITS/ML 20 UNITS SUB-Q (09:02)
[2022-01-04] MEDS: POTASSIUM CHLORIDE 20 MEQ PACKET (FOR LIQUID) 40 MEQ PO (09:02)
[2022-01-04] MEDS: traMADol HCL (*CRX) 50 MG TABLET PO ×2 (09:51→17:30)
[2022-01-04] MEDS: KCL 20 MEQ/D5W 1,000 ML 1,000 ML 100 ML IV CONT (09:52)
--- NOTE | 2022-01-04 11:09 | PM.IMPN ---
Progress Note: A&P Assessment and Plan (1) High anion gap metabolic acidosis: Code(s): E87.29 - Other acidosis Status: Acute Assessment and Plan: admit to intensive care unit DKA protocol in progress Strict intake and output continue IV fluids. Acidosis has improved. (2) Pseudohyponatremia: Code(s): R79.89 - Other specified abnormal findings of blood chemistry Status: Acute Assessment and Plan: will continue to monitor with serial BMP (3) Severe dehydration: Code(s): E86.0 - Dehydration Status: Acute Assessment and Plan: IV fluids (4) Poorly controlled diabetes mellitus: Code(s): E11.65 - Type 2 diabetes mellitus with hyperglycemia Status: Acute Assessment and Plan: will restart insulin as needed monitor blood sugar (5) Diabetic peripheral neuropathy: Code(s): E11.42 - Type 2 diabetes mellitus with diabetic polyneuropathy Status: Acute Assessment and Plan: continue pramipexole (6) Altered mental status: Code(s): R41.82 - Altered mental status, unspecified Status: Acute Assessment and Plan: improved (7) Nausea and vomiting: Code(s): R11.2 - Nausea with vomiting, unspecified Status: Acute Assessment and Plan: improved Subjective Date/time seen: 01/04/22 11:09 patient has no new complaints. Says she just feels tired and fatigued Exam Const: General: comfortable, well developed, in distress ( thrashing about), ill appearing and thin Nutritional Appearance: thin Orientation/consciousness: Other orientation findings ( stuporous) Limitations: altered mental status HENMT: Head: normal to inspection, normocephalic and atraumatic Ears: hearing grossly normal bilaterally Face/Nose/Sinus: normal facial exam Face and sinus: normal facial exam Eyes: General: appearance normal, both eyes and all related structures Pupils: Equal, round and reactive pupils present EOM: EOMs intact bilaterally Neck: Neck: full ROM, no lymphadenopathy and no JVD Thyroid: thyroid normal Lymphatic: no lymphadenopathy noted Resp: Effort & Inspection: normal respiratory effort and able to speak in complete sentences Auscultation: clear to auscultation bilaterally Cardio: Jugular venous distension: no JVD Rate: regular rate Rhythm: regular rhythm Heart sounds: S1 normal heart sound present and S2 normal heart sound present : General: Yes deferred Skin: Rashes: no rashes Wounds: no wounds Neuro: General: CN's II-XI intact bilaterally, Unable to assess gait and other ( stuporous) Cranial nerves: Yes CN's II-XII intact bilaterally, Yes Equal, round and reactive pupils present and Yes facial symmetry Cognition (Neuro): abnormal cognition ( stuporous) Speech: normal speech Gait exam (Neuro): Unable to assess gait Motor exam (neuro): 5/5 motor strength present throughout and Motor abnormalities not present Extrem: General: normal to inspection, full ROM, no joint enlargement and no pedal edema Objective Data Vital Signs Vital Signs: Vital Signs - 24 hr 01/03/22 14:26 01/03/22 19:53 01/03/22 22:38 Temperature 97.0 F L Pulse Rate 85 116 H 135 H Respiratory Rate 20 18 29 H Blood Pressure 136/73 171/82 H 128/88 Pulse Oximetry 100 95 93 Oxygen Delivery Room Air 01/03/22 23:00 01/04/22 00:00 01/04/22 00:00 Temperature 97.1 F L 98.3 F Pulse Rate 124 H 122 H Respiratory Rate 26 H 16 Blood Pressure 152/86 H 113/70 Pulse Oximetry 100 100 100 Oxygen Delivery Room Air 01/04/22 00:00 01/04/22 02:00 01/04/22 02:00 Temperature Pulse Rate 117 H 97 97 Respiratory Rate 16 Blood Pressure 108/49 L Pulse Oximetry 100 Oxygen Delivery 01/04/22 04:00 01/04/22 04:00 01/04/22 04:00 Temperature 99.4 F Pulse Rate 96 96 Respiratory Rate 16 Blood Pressure 138/66 Pulse Oximetry 98 98 Oxygen Delivery Room Air 01/04/22 06:00 01/04/22 06:00
--- NOTE | 2022-01-04 11:28 | WPDCNINT ---
Assessment and Plan Assessment and plan (1) DKA (diabetic ketoacidosis): Qualifiers: Diabetes mellitus complication detail: without coma Diabetes mellitus type: type 1 Qualified Code(s): E10.10 - Type 1 diabetes mellitus with ketoacidosis without coma Code(s): E11.10 - Type 2 diabetes mellitus with ketoacidosis without coma Status: Acute Assessment and Plan: Patient was admitted with recurrent DKA which is likely secondary to noncompliance. Patient was given IVF bolus and started on infusion Patient was treated with Insulin infusion and Q1H glucose monitoring Serial labs were done and patient's anion gap has closed I will transition her to subcutaneous insulin Patient is asymptomatic at this time and would like to eat food. I will start her on diabetic diet (2) Electrolyte abnormality: Code(s): E87.8 - Other disorders of electrolyte and fluid balance, not elsewhere classified Status: Acute Assessment and Plan: Continue replacing potassium I have ordered potassium phosphate IV, IV fluids with potassium 1 time p.o. KCl Change fluid to D5 water with potassium in light of hyperchloremia (3) Groin hematoma: Code(s): S30.1XXA - Contusion of abdominal wall, initial encounter Status: Acute Assessment and Plan: Likely secondary to difficult femoral venous catheter insertion I do not see any significant swelling bruising or hematoma on exam Hemoglobin done this morning is close to her baseline Will recheck hemoglobin later in the day (4) Non-compliance: Code(s): Z91.19 - Patient's noncompliance with other medical treatment and regimen Status: Acute Assessment and Plan: Patient likely noncompliant with her insulin. 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 In ED patient reported elevated blood sugars missing insulin nausea vomiting. She was found to be in DKA. She had poor IV access and a central venous catheter was placed in right femoral site with difficulty. Patient is poor historian. She was given IV fluids and started IV insulin infusion and admitted to ICU for further evaluation management. Patient is well known to me from past admissions and has always been a poor historian. She told me that she missed her insulin doses few times and started feeling weak yesterday and hence she called ambulance. She reported nausea vomiting in the ER but denied to me. To me she denied any fever, chest pain, shortness of breath, cough, nausea vomiting, abdominal pain,, diarrhea, headache or constipation. She states that she has pain at IV site in the right groin which is 2 to 3/10 and achy with no radiation. No aggravating or relieving factors. She lives with her daughter but states that she manages her insulin and all her medications by herself. At this time she states she is feeling better as compared to yesterday and is hungry and would like to eat food. All other systems were reviewed and were negative Review of Systems Review of Systems: All systems reviewed & are unremarkable except as noted in HPI and below PMFSH Past Medical History Medical History Back pain Depression Diabetic peripheral neuropathy Fibromyalgia Hypothyroidism Memory change Ovarian cancer At the age of 33, status post hysterectomy. Patient states that half an ovary was left during surgery. She required no further treatment. Pneumonia due to COVID-19 virus (~09/2020) Re
[2022-01-04 11:53] LABS: Glucose Point of Care 278 mg/dl (65-105)
[2022-01-04] MEDS: INSULIN ASPART (*BKC) 100 UNITS/ML SUB-Q ×2 (12:40→17:31)
[2022-01-04 16:30] LABS: Glucose Point of Care 272 mg/dl (65-105)
[2022-01-04 16:35] LABS: Hematocrit 29.7 % (37.0-47.0); Hemoglobin 9.5 g/dL (12.0-15.0); Mean Corpuscular Hemoglobin 31.1 pg (26-34); Mean Corpuscular Volume 97.4 fl (80-100); Platelet Count Result 143 k/mm3 (150-375); Red Blood Count 3.05 M/mm3 (4.2-5.4); Red Cell Distribution Width 14.5 % (11.5-14.5); White Blood Count 8.1 K/mm3 (4.5-10.0)
[2022-01-04 16:43] LABS: Anion Gap 9 mmol/L (8-16); Blood Urea Nitrogen 14 mg/dL (7-17); Calcium 8.4 mg/dL (8.4-10.2); Carbon Dioxide 21 mmol/L (22-30); Chloride 105 mmol/L (98-107); Estimated CRCL calculation 63 ml/min; Estimated Glomerular Filt Rate > 60; Glucose 263 mg/dL (65-110); Magnesium 1.7 mg/dL (1.6-2.3); Phosphorus 2.7 mg/dL (2.5-4.5); Sodium 135 mmol/L (137-145)
[2022-01-04] MEDS: PRAMIPEXOLE 1 MG TABLET 3 MG PO (18:13)
[2022-01-04 19:32] LABS: Glucose Point of Care 174 mg/dl (65-105)
[2022-01-05] VITALS: BP 97/53; PULSE 69; RESP 16; O2SAT 95
[2022-01-05 04:30] VITALS: BP 99/53; PULSE 70; RESP 15; O2SAT 96
[2022-01-05 05:13] LABS: Hematocrit 29.8 % (37.0-47.0); Hemoglobin 9.6 g/dL (12.0-15.0); Mean Corpuscular HGB Conc 32.2 g/dl (32-36); Mean Corpuscular Hemoglobin 30.9 pg (26-34); Mean Corpuscular Volume 95.8 fl (80-100); Mean Platelet Volume 9.2 fl (7.4-10.4); Platelet Count Result 145 k/mm3 (150-375); Red Blood Count 3.11 M/mm3 (4.2-5.4); Red Cell Distribution Width 14.6 % (11.5-14.5); White Blood Count 6.7 K/mm3 (4.5-10.0)
[2022-01-05 05:39] LABS: Alanine Aminotransferase 15 U/L (6-35); Albumin Level 2.7 g/dL (3.5-5.1); Alkaline Phosphatase 83 U/L (38-126); Anion Gap 4 mmol/L (8-16); Aspartate Amino Transferase 19 U/L (14-36); Bilirubin,Total 0.4 mg/dL (0.2-1.3); Blood Urea Nitrogen 10 mg/dL (7-17); Calcium 8.8 mg/dL (8.4-10.2); Carbon Dioxide 22 mmol/L (22-30); Chloride 106 mmol/L (98-107); Estimated CRCL calculation 76 ml/min; Estimated Glomerular Filt Rate > 60; Glucose 189 mg/dL (65-110); Magnesium 1.9 mg/dL (1.6-2.3); Phosphorus 2.1 mg/dL (2.5-4.5); Potassium 3.7 mmol/L (3.4-5.0); Sodium 132 mmol/L (137-145)
[2022-01-05] MEDS: CENTRAL LINE FLUSH 10 ML IV PUSH ×2 (05:57→15:39)
[2022-01-05 07:48] LABS: Glucose Point of Care 182 mg/dl (65-105)
[2022-01-05 08:00] VITALS: BP 99/53; PULSE 67; RESP 18; O2SAT 97
[2022-01-05] MEDS: INSULIN GLARGINE (*BKC) 100 UNITS/ML 20 UNITS SUB-Q (08:29)
[2022-01-05 11:56] LABS: Glucose Point of Care 291 mg/dl (65-105)
[2022-01-05] MEDS: INSULIN ASPART (*BKC) 100 UNITS/ML SUB-Q (11:56)
--- NOTE | 2022-01-05 19:36 | PM.DS ---
DS: Admitting Diagnosis Discharge Date 01/05/22 Admitting Diagnosis Nausea, vomiting, DKA DS: Discharge Diagnosis Discharge Diagnosis (1) DKA (diabetic ketoacidosis): Qualifiers: Diabetes mellitus complication detail: without coma Diabetes mellitus type: type 1 Qualified Code(s): E10.10 - Type 1 diabetes mellitus with ketoacidosis without coma Code(s): E11.10 - Type 2 diabetes mellitus with ketoacidosis without coma Status: Acute Assessment and Plan: Patient was admitted with recurrent DKA which is likely secondary to noncompliance. Patient was given IVF bolus and started on infusion Patient was treated with Insulin infusion and Q1H glucose monitoring Serial labs were done and patient's anion gap has closed I will transition her to subcutaneous insulin Patient is asymptomatic at this time and would like to eat food. I will start her on diabetic diet (2) Electrolyte abnormality: Code(s): E87.8 - Other disorders of electrolyte and fluid balance, not elsewhere classified Status: Acute Assessment and Plan: Continue replacing potassium I have ordered potassium phosphate IV, IV fluids with potassium 1 time p.o. KCl Change fluid to D5 water with potassium in light of hyperchloremia (3) Groin hematoma: Code(s): S30.1XXA - Contusion of abdominal wall, initial encounter Status: Acute Assessment and Plan: Likely secondary to difficult femoral venous catheter insertion I do not see any significant swelling bruising or hematoma on exam Hemoglobin done this morning is close to her baseline Will recheck hemoglobin later in the day (4) Non-compliance: Code(s): Z91.19 - Patient's noncompliance with other medical treatment and regimen Status: Acute Assessment and Plan: Patient likely noncompliant with her insulin. Will discuss with vp care management (5) Diabetic peripheral neuropathy: Code(s): E11.42 - Type 2 diabetes mellitus with diabetic polyneuropathy Status: Acute (6) Poorly controlled diabetes mellitus: Code(s): E11.65 - Type 2 diabetes mellitus with hyperglycemia Status: Acute (7) Severe dehydration: Code(s): E86.0 - Dehydration Status: Acute (8) Pseudohyponatremia: Code(s): R79.89 - Other specified abnormal findings of blood chemistry Status: Acute (9) High anion gap metabolic acidosis: Code(s): E87.29 - Other acidosis Status: Acute (10) Altered mental status: Code(s): R41.82 - Altered mental status, unspecified Status: Acute (11) Nausea and vomiting: Code(s): R11.2 - Nausea with vomiting, unspecified Status: Acute Plan DVT prophylaxis -SCDs Nutrition -diabetic diet Code Status - Full Code Transfer out ICU today DS: Summary Hospital Course Hospital Course: 71 year old female with past medical history of type 2 diabetes which was diagnosed in March of 2019 and noncompliance with insulin with multiple frequent admissions to ER with DKA presented to ED last night with chief complaint of weakness and high blood sugars.? In ED patient reported elevated blood sugars missing insulin nausea vomiting.? She was found to be in DKA.? She had poor IV access and a central venous catheter was placed in right femoral site with difficulty.? Patient is poor historian.? She was given IV fluids and started IV insulin infusion and admitted to ICU for further evaluation management. Patient is well known to me from past admissions and has always been a poor historian.? She told me that she missed her insulin doses few times and started feeling weak yesterday and hence she called ambulance.? She reported nausea vomiting in the ER but denied to me.? To me she denied any fever, chest pain, shortness of breath, cough, nausea vomiting, abdominal pain,, diarrhea, headache or constipation.? She states that she has pain at IV site in the right groin which is 2 to 3/10 and achy w
== END 2022-01-05 18:05 | disposition home or self-care (01) | DRG 638 ==
LOC: ANHED 20:59 → ANHICU 22:39
PROVIDERS: Chiropractor; Emergency Medicine; Internal Medicine; Physician Assistant; Admitting Provider Internal Medicine; Emergency Provider Family Medicine; Visit Provider Student in an Organized Health Care Education/Training Program
DX: E11.10 Type 2 diabetes mellitus with ketoacidosis without coma (principal); L76.32 Postprocedural hematoma of skin and subcutaneous tissue following other procedure; E11.42 Type 2 diabetes mellitus with diabetic polyneuropathy; E87.8 Other disorders of electrolyte and fluid balance, not elsewhere classified; E03.9 Hypothyroidism, unspecified; F32.A Depression, unspecified; G25.81 Restless legs syndrome; M79.7 Fibromyalgia; Z85.43 Personal history of malignant neoplasm of ovary; Z90.710 Acquired absence of both cervix and uterus; Z86.16 Personal history of COVID-19; Z91.14 Patient's other noncompliance with medication regimen; Z20.822 Contact with and (suspected) exposure to COVID-19; Z79.4 Long term (current) use of insulin; Z66 Do not resuscitate
CPT/HCPCS: 31500; 36415; 36600; 51701; 70450; 74177; 80048; 80053; 81001; 82010; 82375; 82805; 82948; 83036; 83050; 83605; 83690; 83735; 84100; 84484; 85025; 85027; 85610; 85730; 87040; 87086; 87088; 87147; 87181; 87186; 87636; 93005; 96374; 99285; A9270; C1751; J1815; J2060; J3480; J7030; J7050; Q9967

== ENCOUNTER 2022-01-17 13:43 | Inpatient (IN) | payer MEDICARE, SELFPAY ==
[2022-01-17] VITALS (14 sets, daily range): BP systolic 103–168; BP diastolic 56–110; PULSE 92–168; RESP 19–28; TEMP 34.7–36.4; O2SAT 99–100
--- NOTE | ~2022-01-17 | XR_ITS ---
EXAMINATION: XR chest PICC line Exam Date/Time: 01/17/2022 19:49 TICKET SCHEDULER HISTORY: PICC placement Comparison: 12/22/2021. RESULT: Lines, tubes, and devices: New left upper extremity PICC terminating at the cavoatrial junction. Lungs and pleura: Senescent change. No focal consolidation or pneumothorax. Cardiomediastinal silhouette: Stable. Other: No acute osseous or upper abdominal finding. IMPRESSION: New left upper extremity PICC, in good position. Reviewed, dictated and finalized at location K. ET SCHEDULER
--- NOTE | ~2022-01-17 | CT_ITS ---
EXAMINATION: CT brain wo con DATE: 01/17/2022 18:06 INDICATION: ams . TECHNIQUE: Computed tomography (CT) of the head was performed without intravenous contrast. The mA wa s adjusted according to patient size. Iterative reconstruction technique was employed. The dose-lengt h product was 605.33 mGy-cm. COMPARISON: 01/03/2022 FINDINGS: No acute intracranial hemorrhage or extra-axial fluid collection. No hydrocephalus, mass, or herniation. No acute ischemic infarct. Unremarkable dural venous sinus attenuation. No acute osseous abnormality. Trace left mastoid fluid, the remaining aerated spaces are clear. Mild atrophy and chronic white matter change. Atherosclerotic intracranial calcification. IMPRESSION: No acute intracranial process. Reviewed, dictated and finalized at location K. CAR DRIVER
[2022-01-17] MEDS: LACTATED RINGERS 1,000 ML 500 ML IV CONT (14:30)
[2022-01-17 14:35] LABS: Glucose Point of Care > 500 mg/dl (65-105)
--- NOTE | 2022-01-17 14:44 | ED.GENADULT ---
HPI - General Adult General Chief complaint: Recheck/Abnormal Lab/Rx Stated complaint: DKA, altered LOC Time Seen by Provider: 01/17/22 14:23 History of Present Illness HPI narrative: 71-year-old female who is well-known to staff has past medical history of hyperkalemia, DM 1 with recurrent DKA and medical noncompliance presents to our department via EMS with altered mental status, rapid deep breathing and a blood glucose which is too hard to read. EMS was unable to obtain IV access. No further history available at this time. Related Data Allergies Allergy/AdvReac Type Severity Reaction Status Date / Time banana Allergy Severe SEVERE Verified 03/22/22 13:08 HIVES aspirin AdvReac Intermediate Nausea and Verified 03/22/22 13:08 Vomiting fluoxetine [From Prozac] AdvReac Hallucinati Verified 03/22/22 13:08 ng Review of Systems Review of Systems: CONSTITUTIONAL: Denies fever, chills, or sweats. EYES: Denies visual changes, redness, or discharge. ENT: Denies rhinorrhea, congestion, sore throat, or otalgia. CARDIOVASCULAR: Denies chest pain, palpitations, or edema. RESPIRATORY: Denies cough or dyspnea. GASTROINTESTINAL: Denies abdominal pain, nausea, vomiting, or diarrhea. GENITOURINARY: Denies dysuria or hematuria. SKIN: Denies rash or itching. MUSCULOSKELETAL: Denies back pain, joint pain, or myalgia. NEUROLOGIC: Denies headache, numbness, or weakness. PSYCHIATRIC: Denies anxiety or depression. [facility] Past Medical History Medical History Depression Diabetic peripheral neuropathy Fibromyalgia Hypothyroidism Memory change Ovarian cancer At the age of 33, status post hysterectomy. Patient states that half an ovary was left during surgery. She required no further treatment. Pneumonia due to COVID-19 virus (09/2020) Restless leg syndrome Shingles Type 2 diabetes mellitus Hemoglobin A1c was > 14% August 2021 C-peptide 0.63. Surgical History Surgical History History of tonsillectomy (1970) History of total hysterectomy with bilateral salpingo-oophorectomy (BSO) (1983) History of tubal ligation (1983) Family History Family History Grandparent Family history of premature coronary heart disease, Onset Age: 64 Father Family history of respiratory disorder, Onset Age: 87 Family history of cardiovascular disease Patient's father is Family history of Alzheimer's disease Cerebrovascular accident Mother Family history of primary malignant neoplasm of liver, Onset Age: 64 Family history of malignant neoplasm Patient's mother is , Onset Age: 64 Family history of malignant neoplasm of breast in first degree relative Sibling Heart attack Sibling Heart attack Social History Social History Social History: The patient is . She lives in her own home in [place], [place]. Her daughter Mary used to live with her but it does not sound as though she does any longer, unclear. She has 2 daughters, and designates her daughter Jose Posey, as her surrogate decision maker. She is a lifelong nonsmoker. She drinks perhaps 4-12 alcoholic beverages a week. No drug use. The patient tells me that she does not drink anymore. Code status: Full code. Smoking status: Never smoker Second hand tobacco smoke exposure: No Alcohol intake: former Substance use: never Other substance usage details: per ER note 4-12 drinks per week Lack of Transportation: No Lack of Food: Never True Current Housing: I Have Housing Concerned About Future Housing: No Difficulty Paying Gas/Electric Bills: No Difficulty Paying for Meds: No Currently Unemployed: No Education: High School Diploma/GED Difficulty w/ Childcare or Family Care: No Living arrange
[2022-01-17 14:46] LABS: Alveolar/Arterial O2 Gradient 107.2 mmHg; Base Excess ABG -30.6 mEq/l (+/-2.0); Carboxyhemoglobin 0.1 % THb (0-2.0); Fractional Inspired Oxygen 44 %; HCO3 ABG 2.3 mEq/l (22.0-26.0); Methemoglobin ABG 0.5 %THb (0-1.5); Oxygen Content ABG 18.6 %vol (16.0-22.0); Oxygen Saturation ABG 98.1 % (95.0-100.0); Oxyhemoglobin 97.5 % THb (90.0-100.0); PO2 FiO2 Ratio Arterial Blood 4.34 %; Reduced Hemoglobin 1.9 %THb (0-5.0); Total Hemoglobin 13.3 g/dL (12.0-18.0)
[2022-01-17 14:49] LABS: pH ABG 6.838 (7.350-7.450)
[2022-01-17 14:50] LABS: PCO2 ABG 13.6 mmHg (35.0-45.0); Site Drawn LEFT BRACHIAL
[2022-01-17 14:51] LABS: Device NASAL CANNULA; Modified Allen's Test Pass
--- NOTE | 2022-01-17 15:00 | PC.NURSE ---
lab called for phleb to draw blood.2 RN attempted without success.
[2022-01-17 15:45] LABS: Glucose Point of Care > 500 mg/dl (65-105)
[2022-01-17 15:46] LABS: Hematocrit 43.5 % (37.0-47.0); Hemoglobin 12.6 g/dL (12.0-15.0); Mean Corpuscular Hemoglobin 32.1 pg (26-34); Mean Corpuscular Volume 110.7 fl (80-100); Mean Platelet Volume 9.7 fl (7.4-10.4); Platelet Count Result 456 k/mm3 (150-375); Red Blood Count 3.93 M/mm3 (4.2-5.4); Red Cell Distribution Width 14.2 % (11.5-14.5); White Blood Count 26.3 K/mm3 (4.5-10.0)
[2022-01-17] MEDS: LACTATED RINGERS 1,000 ML 999 ML IV CONT (15:55)
[2022-01-17 16:11] LABS: Appearance Urine Clear (Clear); Bilirubin Urine 1+ (Negative); Blood Urine Trace-lysed (Negative); Color Urine Yellow (Yellow); Glucose Urine UA 2+ mg/dL (Negative); Ketones Urine 4+ mg/dL (Negative); Leukocyte Esterase Ur Negative LEU/UL (Negative); Nitrate Urine Negative (Negative); Protein Urine 2+ mg/dL (Negative); Urobilinogen Urine 0.2 mg/dL (<2.0)
[2022-01-17 16:14] LABS: Bacteria Urine Trace /hpf; Mucus Urine Rare /lpf; RBC Urine 0-2 /hpf (0-2); Squamous Epithelial Cell Urine Rare /hpf (Few); WBC Urine 0-3 /hpf
[2022-01-17 16:15] LABS: Alanine Aminotransferase 18 U/L (6-35); Albumin Level 4.3 g/dL (3.5-5.1); Alkaline Phosphatase 159 U/L (38-126); Aspartate Amino Transferase 21 U/L (14-36); Bilirubin,Total 0.3 mg/dL (0.2-1.3); Blood Urea Nitrogen 37 mg/dL (7-17); Calcium 10.8 mg/dL (8.4-10.2); Carbon Dioxide < 5 mmol/L (22-30); Chloride 94 mmol/L (98-107); Estimated CRCL calculation 27 ml/min; Estimated Glomerular Filt Rate 34; Glucose 965 mg/dL (65-110); Magnesium 2.8 mg/dL (1.6-2.3); Phosphorus 11.6 mg/dL (2.5-4.5); Potassium 5.8 mmol/L (3.4-5.0); Sodium 133 mmol/L (137-145)
[2022-01-17 16:24] LABS: Add Urine Microscopic? YES
[2022-01-17 16:31] LABS: Band Neutrophils Percent 5 % (0-6); Lymphocytes Absolute Manual 3.94 K/mm3 (1.1-4.5); Monocytes Absolute Manual 1.57 K/mm3 (0.1-0.90); Monocytes Percent Manual 6 % (3-9); Neutrophils Absolute Manual 20.77 K/mm3 (1.7-7.2); Neutrophils Percent Manual 74 % (46-73); Platelet Estimate Increased (Adequate); Total Cells Counted 100
[2022-01-17 16:32] LABS: Hypochromasia 1+ (NORMAL); Schistocytes None Seen (NORMAL)
[2022-01-17] MEDS: SODIUM BICARBONATE 8.4% 100 MEQ in DEXTROSE 5% 1,000 ML 1,000 ML 50 MEQ IV CONT (17:16)
[2022-01-17] MEDS: INSULIN HUMAN REGULAR (*BKC) 100 UNITS in SODIUM CHLORIDE 0.9% IV 99 ML 18 UNITS IV CONT (17:16)
--- NOTE | 2022-01-17 18:26 | PM.IMHP ---
H&P: HPI History of Present Illness Date/Time: 01/17/22 18:26 Chief Complaint: Altered level of consciousness Narrative: This is a 71-year-old female patient who has a history of diabetes type 1 with recurrent DKA and medical noncompliance. The patient was recently discharged from here on 01/05/2022 with DKA. The patient had altered mental status today with rapid deep breathing and glucose at was to [place] read. EMS was unable to obtain information from the patient. Her white count was 26.3. ABGs pH 6.838, pCO2 was 13.6, PO2 was 191, bicarb was 2.3. Sodium was 133 and is now normal. Potassium was 5.8 now normal. Chloride 94 which is now 99. BUN 37 now 40 creatinine 1.5 and continues to be 1.5. Initially her blood sugar was 965 and is now 811. A1c is greater than 14. Calcium is 10.4 magnesium 2.7. Her beta hydroxybutyrate acetoacetate was 18.0 urine was 2+ glucose and 4+ ketones. The anion gap was not repeat portable as it was outside the range of the analyzer. However according to med calc her anion gap is 35. The patient was started on insulin drip. She was started on a bicarb drip she was given 3 L of fluid. A PICC line was placed in the ICU. The [employer] had been consulted per ED and I placed the official order. The patient is being admitted to ICU inpatient on the date of service of 01/17/2022. Review of Systems Review of Systems: See HPI All systems reviewed & are unremarkable except as noted in HPI and below Constitutional: Constitutional: Reports as per HPI and Reports no additional constitutional complaints Eyes: Eyes: Reports as per HPI and Reports no additional eye complaints ENT: Reports system reviewed and no additional complaints, except as documented and Reports Normal hearing present Cardiovascular: Cardiovascular: Reports no additional cardiovascular complaints Respiratory: Respiratory: Reports no additional respiratory complaints and Reports no additional respiratory complaints Gastrointestinal: Gastrointestinal: Reports as per HPI and Reports no additional gastrointestinal complaints Musculoskeletal: Musculoskeletal: Reports no additional musculoskeletal complaints Integumentary/Breasts: Skin/Breast: Reports system reviewed and no additional complaints, except as docu and Reports as per HPI Neurologic: Reports system reviewed and no additional complaints, except as documented, Reports as per HPI and Reports Normal hearing present Psychiatric: Psychiatric: Reports no additional psychiatric complaints and Reports as per HPI Endocrine: Endocrine: Reports no additional endocrine complaints Hematologic/Lymphatic: Hematologic/Lymphatic: Reports no additional hematologic/lymphatic complaints Allergic/Immunologic: Allergic/Immunologic: Reports no additional allergic/immunologic complaints [facility] Past Medical History Medical History (Updated 01/17/22 @ 21:03 by Lesley Benton NP) Back pain Depression Depression Diabetic peripheral neuropathy Fibromyalgia Hypothyroidism Memory change Ovarian cancer At the age of 33, status post hysterectomy. Patient states that half an ovary was left during surgery. She required no further treatment. Pneumonia due to COVID-19 virus (~09/2020) Restless leg syndrome Shingles Type 2 diabetes mellitus Hemoglobin A1c was > 14% August 2021 C-peptide 0.63. Surgical History Surgical History History of tonsillectomy (~1970) History of total hysterectomy with bilateral salpingo-oophorectomy (BSO) (~1983) History of tubal ligation (~1983) Family History Family History Grandparent Family history of premature coronary heart disease, Onset Age: 64 Father Family history of respiratory disorder, Onset Age: 87 Family history of cardiovascular disease Patient's father is Family history of Alzheimer's disease Cerebrovascular accident
[2022-01-17] MEDS: SODIUM BICARBONATE 8.4% 50 MEQ/50 ML SYRINGE IV PUSH (18:38)
[2022-01-17 18:41] LABS: Glucose Point of Care > 500 mg/dl (65-105)
--- NOTE | 2022-01-17 19:00 | PC.NURSE ---
lacey picc line rn en route to place line due to medical neccesity
[2022-01-17 19:20] LABS: Glucose Point of Care > 500 mg/dl (65-105)
--- NOTE | 2022-01-17 19:29 | ADMGEN ---
This patient, Karly Leslie, was admitted to Intensive Care Unit-5. Patient/family oriented to hospital policies and general routines including ID bracelet, bed and alarms, visiting hours, pain management, procedures, bathroom and other care routines, personal items, smoking policy, room service/diet, and visiting hours. Information on how to activate the Rapid Response Team has been discussed. Patient/Family are encouraged to report perceived risks to care and to ask questions if they do not understand what they are told or what they should do. Patient unable to answer questions at this time; admission assessment not completed.
[2022-01-17 19:59] LABS: Blood Urea Nitrogen 40 mg/dL (7-17); Calcium 10.4 mg/dL (8.4-10.2); Carbon Dioxide < 5 mmol/L (22-30); Chloride 99 mmol/L (98-107); Estimated CRCL calculation 27 ml/min; Estimated Glomerular Filt Rate 34; Glucose 811 mg/dL (65-110); Sodium 139 mmol/L (137-145)
[2022-01-17 20:12] LABS: Hemoglobin A1C > 14.0 % (<5.7)
[2022-01-17 20:29] LABS: Magnesium 2.7 mg/dL (1.6-2.3); Phosphorus 8.9 mg/dL (2.5-4.5)
[2022-01-17 21:37] LABS: Glucose Point of Care > 500 mg/dl (65-105)
[2022-01-17 21:37] LABS: Glucose 671 mg/dL (65-110)
[2022-01-17] MEDS: CENTRAL LINE FLUSH 10 ML IV PUSH (21:56)
[2022-01-17] MEDS: INSULIN HUMAN REGULAR (*BKC) 100 UNITS in SODIUM CHLORIDE 0.9% IV 99 ML 24.4 UNITS IV CONT (22:01)
[2022-01-17 23:11] LABS: Glucose Point of Care > 500 mg/dl (65-105)
[2022-01-18] VITALS (15 sets, daily range): BP systolic 101–144; BP diastolic 59–71; PULSE 80–101; RESP 12–22; TEMP 36.5–37.6; O2SAT 98–100; BMI 20.7
[2022-01-18 00:35] LABS: Glucose Point of Care 483 mg/dl (65-105)
[2022-01-18] MEDS: INSULIN HUMAN REGULAR (*BKC) 100 UNITS in SODIUM CHLORIDE 0.9% IV 99 ML 19.9 UNITS IV CONT (01:51)
[2022-01-18 01:56] LABS: Glucose Point of Care 344 mg/dl (65-105)
[2022-01-18 02:08] LABS: Anion Gap 22 mmol/L (8-16); Blood Urea Nitrogen 47 mg/dL (7-17); Calcium 10.9 mg/dL (8.4-10.2); Carbon Dioxide 12 mmol/L (22-30); Chloride 107 mmol/L (98-107); Estimated CRCL calculation 44 ml/min; Estimated Glomerular Filt Rate > 60; Glucose 346 mg/dL (65-110); Potassium 4.1 mmol/L (3.4-5.0); Sodium 141 mmol/L (137-145)
[2022-01-18 03:19] LABS: Glucose Point of Care 301 mg/dl (65-105)
[2022-01-18 04:29] LABS: Glucose Point of Care 239 mg/dl (65-105)
[2022-01-18] MEDS: CENTRAL LINE FLUSH 10 ML IV PUSH ×3 (05:32→22:35)
[2022-01-18 06:00] LABS: Anion Gap 12 mmol/L (8-16); Blood Urea Nitrogen 48 mg/dL (7-17); Calcium 10.7 mg/dL (8.4-10.2); Carbon Dioxide 21 mmol/L (22-30); Chloride 107 mmol/L (98-107); Estimated CRCL calculation 56 ml/min; Estimated Glomerular Filt Rate > 60; Glucose 182 mg/dL (65-110); Sodium 140 mmol/L (137-145)
[2022-01-18 06:04] LABS: Glucose Point of Care 172 mg/dl (65-105)
--- NOTE | 2022-01-18 06:35 | PC.NURSE ---
bed changed due to bed alarm malfunction.
[2022-01-18 07:08] LABS: Glucose Point of Care 164 mg/dl (65-105)
[2022-01-18 07:08] LABS: Glucose Point of Care 154 mg/dl (65-105)
[2022-01-18 08:03] LABS: Glucose Point of Care 120 mg/dl (65-105)
[2022-01-18] MEDS: ENOXAPARIN 40 MG/0.4 ML SYRINGE SUB-Q (08:31)
[2022-01-18 08:48] LABS: Hemoglobin 12.4 g/dL (12.0-15.0); Mean Corpuscular HGB Conc 34.4 g/dl (32-36); Mean Corpuscular Hemoglobin 31.8 pg (26-34); Mean Corpuscular Volume 92.3 fl (80-100); Mean Platelet Volume 8.9 fl (7.4-10.4); Platelet Count Result 211 k/mm3 (150-375); Red Cell Distribution Width 14.2 % (11.5-14.5); White Blood Count 17.6 K/mm3 (4.5-10.0)
[2022-01-18 09:02] LABS: Anion Gap 10 mmol/L (8-16); Blood Urea Nitrogen 48 mg/dL (7-17); Calcium 10.8 mg/dL (8.4-10.2); Carbon Dioxide 25 mmol/L (22-30); Chloride 107 mmol/L (98-107); Estimated CRCL calculation 64 ml/min; Estimated Glomerular Filt Rate > 60; Glucose 90 mg/dL (65-110); Potassium 4.6 mmol/L (3.4-5.0); Sodium 142 mmol/L (137-145)
[2022-01-18 09:07] LABS: Glucose Point of Care 103 mg/dl (65-105)
--- NOTE | 2022-01-18 09:48 | WPDCNINT ---
Assessment and Plan Assessment and plan (1) DKA (diabetic ketoacidosis): Qualifiers: Diabetes mellitus complication detail: without coma Diabetes mellitus type: type 1 Qualified Code(s): E10.10 - Type 1 diabetes mellitus with ketoacidosis without coma Code(s): E11.10 - Type 2 diabetes mellitus with ketoacidosis without coma Status: Acute Assessment and Plan: Recurrent DKA secondary to noncompliance with insulin Patient was given IVF bolus in ER and and started on infusion IV fluids with bicarb due to significant acidosis She was also started on Insulin infusion and Q1H glucose monitoring Serial labs were performed Her anion gap has closed I will discontinue IV fluids with bicarb and switch her to half-normal saline Start clear liquid diet and advance as tolerated Will administer Lantus and start subcutaneous insulin (2) Encephalopathy: Code(s): G93.40 - Encephalopathy, unspecified Status: Acute Assessment and Plan: Likely metabolic encephalopathy from DKA Head CT negative Patient now awake alert oriented with nonfocal exam (3) SIRS (systemic inflammatory response syndrome): Code(s): R65.10 - Systemic inflammatory response syndrome (SIRS) of non-infectious origin without acute organ dysfunction Status: Acute Assessment and Plan: As evidenced by leukocytosis Likely dehydration and metabolic derangement UA and chest x-ray negative No antibiotics at this time Monitor Plan DVT prophylaxis -Lovenox Nutrition -start liquid diet and advance as tolerated to diabetic Code Status - Full Code I spoke to patient's daughter by phone and discussed patient's noncompliance and frequent admissions to the hospital with DKA. She states the patient does not listen to her and does not take her medications as she is supposed to. She is going to be visiting patient today and I will request customer care consultant to get her and provide additional information regarding assisted living. Vision Therapist Consult Note Consult date: 01/18/22 Reason for consult: DKA HPI: Karly Leslie is a 71 year old female with past medical history of type 2 diabetes which was diagnosed in March of 2019 and troubling noncompliance with insulin with multiple frequent admissions to ER/ICU with DKA presented again to ED last night with altered mental status and high blood sugars.? She was recently admitted and treated for DKA and discharged on 01/05 from [facility]. In ER patient was poor historian and unable to provide any meaningful history. She was found to be in DKA with severe acidosis. Her white count was 26.3.? ABGs pH 6.838, pCO2 was 13.6, PO2 was 191, bicarb was 2.3.? Sodium was 133 and is now normal.? Potassium was 5.8 now normal.? Chloride 94 which is now 99.? BUN 37 now 40 creatinine 1.5 and continues to be 1.5.? Initially her blood sugar was 965 and is now 811.? A1c is greater than 14.? Calcium is 10.4 magnesium 2.7.? Her beta hydroxybutyrate acetoacetate was 18.0 urine was 2+ glucose and 4+ ketones. Patient was given IV fluid bolus fluids and insulin infusion. Patient was started on IV bicarb fluids by ER physician to her severe acidosis. Patient is poor peripheral IV access in last few admission patient has required a femoral central venous catheter to obtain adequate IV access. This time preemptively a PICC line was placed on admission for us to allow her to administer IV fluids insulin drip and draw blood samples for serial labs. Patient was admitted to ICU for further evaluation management. On my evaluation this morning patient remains drowsy but easily arousable. She is a poor historian does not answer any question had to be probed multiple times to answer a single question. She is unable to tell me why she is in the hospital. She states that she felt weak at home. She claims compliance with her insulin. At this time she states she is thirsty and would like to have some water and would li
[2022-01-18 10:02] LABS: Glucose Point of Care 72 mg/dl (65-105)
[2022-01-18] MEDS: INSULIN GLARGINE (*BKC) 100 UNITS/ML 20 UNITS SUB-Q ×2 (10:03→22:30)
[2022-01-18] MEDS: SODIUM CHLORIDE 0.45% 1,000 ML 100 ML IV CONT ×2 (10:03→22:35)
--- NOTE | 2022-01-18 11:24 | PM.IMPN ---
Progress Note: A&P Assessment and Plan (1) DKA (diabetic ketoacidosis): Qualifiers: Diabetes mellitus complication detail: without coma Diabetes mellitus type: type 1 Qualified Code(s): E10.10 - Type 1 diabetes mellitus with ketoacidosis without coma Code(s): E11.10 - Type 2 diabetes mellitus with ketoacidosis without coma Status: Acute Assessment and Plan: patient presents with nausea, vomiting and altered mental status. PH was 6.8. Serum bicarb was <5 with anion gap of 34. Glucose was 965. Patient was diagnosed with DKA secondary to noncompliance with insulin. she may also have run out of her insulin but this needs to be verified. Patient was given IVF bolus in ER and and started on infusion IV fluids with bicarb due to significant acidosis She was also started on Insulin infusion and Q1H glucose monitoring Serial labs were performed Her anion gap has closed. IV insulin stopped. She was given Lantus this morning. IV fluids adjusted. Start clear liquid diet and advance as tolerated Continue sliding scale protocol. Change Lantus to evening dose as she takes at home. Will need to verify if she has medications at home. (2) Encephalopathy: Code(s): G93.40 - Encephalopathy, unspecified Status: Acute Assessment and Plan: Patient with altered mental status on admission. Brain CT showed no acute findings. Likely metabolic encephalopathy from severe DKA. Patient is more awake and appropriate but still somnolent. Will continue to monitor. (3) SIRS (systemic inflammatory response syndrome): Code(s): R65.10 - Systemic inflammatory response syndrome (SIRS) of non-infectious origin without acute organ dysfunction Status: Acute Assessment and Plan: As evidenced by leukocytosis, Tachycardia and tachypnea. Likely dehydration and metabolic derangement From DKA. UA clear and chest x-ray negative. Continue to monitor. (4) Poorly controlled diabetes mellitus: Code(s): E11.65 - Type 2 diabetes mellitus with hyperglycemia Status: Acute Assessment and Plan: A1c greater than 14. Patient has long history of diabetes with noncompliance. Family made aware. (5) Acute kidney failure: Code(s): N17.9 - Acute kidney failure, unspecified Status: Acute Assessment and Plan: Cr 1.5 on admission felt related to dehydration and ?ATN from SIRS/DKA. With IV fluids., Cr has improved. Follow Plan DVT prophylaxis -Lovenox Nutrition -start liquid diet and advance as tolerated to diabetic Code Status - Full Code GI prophylaxis - patient with epigastric pain; start PPI. Subjective Date/time seen: 01/18/22 11:24 Interval history: 71yo female with DM here for nausea, vomiting and AMS and found to have DKA. Patient is somnolent but arousable she appears to be oriented. History is difficult to obtain due to her somnolence. She states that she has Lantus at home but ran out of NovoLog. She does admit to stopping her Lantus. When asked why she stopped her Lantus, she states that she ran out of Lantus. Thus history is unreliable at this time. Review of Systems Review of Systems: ROS unobtainable: Yes unobtainable due to mental status Exam Narrative: AF 99.4 123/71 90 16 98% ra Gen - NARD Lying semi recumbent in bed Chest - clear anteriorly in the flanks. CV - RRR S1/S2. Telemetry showing no significant dysrhythmias Abd - soft. Mild diffuse tenderness worse in the epigastric region. Positive bowel sounds. - Grace catheter secured draining clear yellow urine. Ext - No pedal edema. 2+ DP pulses bilaterally. No wounds or skin breakdown noted in feet. Neuro - Somnolent but oriented x4. History is contradictory. Psych - Difficult to assess Skin - Warm and dry Objective Data Vital Signs Vital Signs: Vital Signs - 24 hr 01/17/22 13:40 01/17/22 19:00 01/17/22 20:39 Temperature 94.4 F L Pulse R
[2022-01-18 12:31] LABS: Glucose Point of Care 108 mg/dl (65-105)
[2022-01-18] MEDS: INSULIN ASPART (*BKC) 100 UNITS/ML SUB-Q ×4 (13:00→22:29)
[2022-01-18] MEDS: FAMOTIDINE 20 MG/2 ML VIAL IV PUSH ×2 (13:01→22:30)
[2022-01-18 16:16] LABS: Glucose Point of Care 331 mg/dl (65-105)
[2022-01-18] MEDS: traMADol HCL (*CRX) 50 MG TABLET PO (17:10)
[2022-01-18 20:29] LABS: Glucose Point of Care 212 mg/dl (65-105)
[2022-01-18] MEDS: PRAMIPEXOLE 1 MG TABLET 3 MG PO (22:30)
[2022-01-19] VITALS (10 sets, daily range): BP systolic 98–129; BP diastolic 53–64; PULSE 78–86; RESP 14–20; TEMP 36.3–37.1; O2SAT 96–98
[2022-01-19 00:01] LABS: Glucose Point of Care 163 mg/dl (65-105)
[2022-01-19 05:09] LABS: Glucose Point of Care 161 mg/dl (65-105)
[2022-01-19] MEDS: CENTRAL LINE FLUSH 10 ML IV PUSH ×3 (05:19→17:42)
[2022-01-19 05:51] LABS: Hematocrit 31.1 % (37.0-47.0); Hemoglobin 10.2 g/dL (12.0-15.0); Mean Corpuscular HGB Conc 32.8 g/dl (32-36); Mean Corpuscular Hemoglobin 31.8 pg (26-34); Mean Corpuscular Volume 96.9 fl (80-100); Mean Platelet Volume 9.6 fl (7.4-10.4); Platelet Count Result 149 k/mm3 (150-375); Red Blood Count 3.21 M/mm3 (4.2-5.4); Red Cell Distribution Width 15.1 % (11.5-14.5); White Blood Count 10.5 K/mm3 (4.5-10.0)
[2022-01-19 06:08] LABS: Alanine Aminotransferase 13 U/L (6-35); Alkaline Phosphatase 85 U/L (38-126); Anion Gap 4 mmol/L (8-16); Aspartate Amino Transferase 22 U/L (14-36); Bilirubin,Total 0.6 mg/dL (0.2-1.3); Blood Urea Nitrogen 25 mg/dL (7-17); Calcium 9.7 mg/dL (8.4-10.2); Carbon Dioxide 23 mmol/L (22-30); Chloride 103 mmol/L (98-107); Estimated CRCL calculation 92 ml/min; Estimated Glomerular Filt Rate > 60; Glucose 140 mg/dL (65-110); Phosphorus 2.3 mg/dL (2.5-4.5); Potassium 4.7 mmol/L (3.4-5.0); Sodium 130 mmol/L (137-145)
[2022-01-19 08:08] LABS: Glucose Point of Care 132 mg/dl (65-105)
[2022-01-19] MEDS: SODIUM CHLORIDE 0.45% 1,000 ML 100 ML IV CONT (09:01)
[2022-01-19] MEDS: INSULIN ASPART (*BKC) 100 UNITS/ML SUB-Q ×3 (09:03→17:44)
[2022-01-19] MEDS: ENOXAPARIN 40 MG/0.4 ML SYRINGE SUB-Q (09:03)
[2022-01-19] MEDS: FAMOTIDINE 20 MG/2 ML VIAL IV PUSH (09:03)
[2022-01-19 12:51] LABS: Glucose Point of Care 170 mg/dl (65-105)
--- NOTE | 2022-01-19 15:09 | PM.IMPN ---
Progress Note: A&P Assessment and Plan (1) DKA (diabetic ketoacidosis): Qualifiers: Diabetes mellitus complication detail: without coma Diabetes mellitus type: type 1 Qualified Code(s): E10.10 - Type 1 diabetes mellitus with ketoacidosis without coma Code(s): E11.10 - Type 2 diabetes mellitus with ketoacidosis without coma Status: Acute Assessment and Plan: Patient presents with nausea, vomiting and altered mental status. PH was 6.8. Serum bicarb was <5 with anion gap of 34. Glucose was 965. Patient was diagnosed with DKA secondary to noncompliance with insulin. she does verify that she ran out of her insulin. Patient was given IVF bolus in ER and and started on infusion IV fluids with bicarb due to significant acidosis She was also started on Insulin infusion and Q1H glucose monitoring Serial labs were performed Her anion gap closed. IV insulin stopped. She was started back on Lantus Diet advanced Continue sliding scale protocol. Continue Lantus and meal time insulin. Stop IV fluids. (2) Encephalopathy: Code(s): G93.40 - Encephalopathy, unspecified Status: Acute Assessment and Plan: Patient with altered mental status on admission. Brain CT showed no acute findings. Likely metabolic encephalopathy from severe DKA. Patient is more awake and appropriate but still distant but better overall. Low sodium noted but felt realted to 1/2NS. Stop IV fluids. Will continue to monitor. (3) SIRS (systemic inflammatory response syndrome): Code(s): R65.10 - Systemic inflammatory response syndrome (SIRS) of non-infectious origin without acute organ dysfunction Status: Acute Assessment and Plan: As evidenced by leukocytosis, Tachycardia and tachypnea. Likely dehydration and metabolic derangement from DKA. UA clear and chest x-ray negative. WBC better. Continue to monitor. (4) Poorly controlled diabetes mellitus: Code(s): E11.65 - Type 2 diabetes mellitus with hyperglycemia Status: Acute Assessment and Plan: A1c greater than 14. Patient has long history of diabetes with noncompliance. Family made aware. Plan to have her follow up as outpatient with discussion with family. Not sure what more can be done. (5) Acute kidney failure: Code(s): N17.9 - Acute kidney failure, unspecified Status: Acute Assessment and Plan: Cr 1.5 on admission felt related to dehydration and ?ATN from SIRS/DKA. With IV fluids, Cr has normalized. Follow Plan DVT prophylaxis -Lovenox Nutrition - diabetic Code Status - Full Code GI prophylaxis - patient with epigastric pain; continue Pepcid Subjective Date/time seen: 01/19/22 15:09 Interval history: 71yo female with DM here for nausea, vomiting and AMS and found to have DKA. Patient feels tired and weak. Slept okay last night. No problems overnight. No chest pain or shortness of breath. Eating okay but she does ?gag on my food? and this has been going on for about 6 months. Exam Narrative: AF 98.3 105/53 80 20 98% ra Gen - NARD Chest - few basilar rhonchi, nml RR. CV - RRR S1/S2. Telemetry showing no significant dysrhythmias Abd - soft. mild epigastric pain. - Grace catheter secured draining clear yellow urine. Ext - No pedal edema. Neuro - awake, alert and oriented x4. Psych - subdued Skin - Warm and dry Objective Data Vital Signs Vital Signs: Vital Signs - 24 hr 01/18/22 16:00 01/18/22 16:00 01/18/22 16:00 Temperature 99.3 F Pulse Rate 88 92 Respiratory Rate 12 Blood Pressure 122/64 Pulse Oximetry 100 100 Oxygen Delivery Room Air 01/18/22 18:00 01/18/22 19:50 01/18/22 20:00 Temperature 97.7 F Pulse Rate 90 87 81 Respiratory Rate 18 Blood Pressure 107/60 Pulse Oximetry 98 Oxygen Delivery 01/18/22 20:00 01/18/22 22:00 01/19/22 00:00 Temperature 98.2 F Pulse Rate 81 80 81 Respiratory Rate 18 16 Blood P
[2022-01-19] MEDS: POTASSIUM/PHOSPHORUS/SODIUM 1.5 GM PACKET 1 PACKET PO (15:44)
--- NOTE | 2022-01-19 16:47 | PCSTNOTE ---
Please refer to the Bedside Swallow Evaluation in the EMR. Please note, silent aspiration cannot be ruled out at bedside.
[2022-01-19 17:52] LABS: Glucose Point of Care 130 mg/dl (65-105)
[2022-01-19] MEDS: PRAMIPEXOLE 1 MG TABLET 3 MG PO (20:14)
[2022-01-19] MEDS: FAMOTIDINE 20 MG TABLET PO (20:14)
[2022-01-19] MEDS: INSULIN GLARGINE (*BKC) 100 UNITS/ML 20 UNITS SUB-Q (20:15)
[2022-01-19 21:44] LABS: Glucose Point of Care 175 mg/dl (65-105)
[2022-01-20 06:00] VITALS: BP 125/64; PULSE 77; RESP 14; TEMP 36.6; O2SAT 98
[2022-01-20 06:20] LABS: Hematocrit 31.1 % (37.0-47.0); Hemoglobin 10.1 g/dL (12.0-15.0); Immature Platelet Fraction Pct 3.6 % (0.9-11.2); Mean Corpuscular HGB Conc 32.5 g/dl (32-36); Mean Corpuscular Hemoglobin 30.7 pg (26-34); Mean Corpuscular Volume 94.5 fl (80-100); Mean Platelet Volume 9.3 fl (7.4-10.4); Platelet Count Result 146 k/mm3 (150-375); Red Blood Count 3.29 M/mm3 (4.2-5.4); Red Cell Distribution Width 14.7 % (11.5-14.5); White Blood Count 5.8 K/mm3 (4.5-10.0)
[2022-01-20 06:29] LABS: Alanine Aminotransferase 12 U/L (6-35); Albumin Level 2.9 g/dL (3.5-5.1); Alkaline Phosphatase 88 U/L (38-126); Anion Gap 4 mmol/L (8-16); Aspartate Amino Transferase 22 U/L (14-36); Bilirubin,Total 0.6 mg/dL (0.2-1.3); Blood Urea Nitrogen 9 mg/dL (7-17); Calcium 9.5 mg/dL (8.4-10.2); Carbon Dioxide 25 mmol/L (22-30); Chloride 104 mmol/L (98-107); Estimated CRCL calculation 117 ml/min; Estimated Glomerular Filt Rate > 60; Glucose 134 mg/dL (65-110); Magnesium 1.9 mg/dL (1.6-2.3); Phosphorus 2.6 mg/dL (2.5-4.5); Potassium 4.3 mmol/L (3.4-5.0); Sodium 133 mmol/L (137-145)
[2022-01-20 07:36] LABS: Glucose Point of Care 134 mg/dl (65-105)
[2022-01-20] MEDS: FAMOTIDINE 20 MG TABLET PO (08:30)
[2022-01-20] MEDS: ENOXAPARIN 40 MG/0.4 ML SYRINGE SUB-Q (08:30)
[2022-01-20 11:52] LABS: Glucose Point of Care 243 mg/dl (65-105)
[2022-01-20] MEDS: INSULIN ASPART (*BKC) 100 UNITS/ML SUB-Q ×2 (12:08)
[2022-01-20] MEDS: CENTRAL LINE FLUSH 10 ML IV PUSH (12:08)
--- NOTE | 2022-01-20 12:11 | PM.DS ---
DS: Admitting Diagnosis Discharge Date 01/20/22 Admitting Diagnosis Nausea, vomiting and AMS DS: Discharge Diagnosis Discharge Diagnosis (1) DKA (diabetic ketoacidosis): Qualifiers: Diabetes mellitus complication detail: without coma Diabetes mellitus type: type 1 Qualified Code(s): E10.10 - Type 1 diabetes mellitus with ketoacidosis without coma Code(s): E11.10 - Type 2 diabetes mellitus with ketoacidosis without coma Status: Acute (2) Encephalopathy: Code(s): G93.40 - Encephalopathy, unspecified Status: Acute (3) SIRS (systemic inflammatory response syndrome): Code(s): R65.10 - Systemic inflammatory response syndrome (SIRS) of non-infectious origin without acute organ dysfunction Status: Acute (4) Poorly controlled diabetes mellitus: Code(s): E11.65 - Type 2 diabetes mellitus with hyperglycemia Status: Acute (5) Acute kidney failure: Code(s): N17.9 - Acute kidney failure, unspecified Status: Acute DS: Summary Hospital Course Reason for hospitalization: 71yo female with DM here for nausea, vomiting and AMS and found to have DKA. Please see H&P for details Hospital Course: Patient presents with nausea, vomiting and altered mental status.? PH was 6.8.? Serum bicarb was <5 with anion gap of 34.? Glucose was 965.? Patient was diagnosed with DKA secondary to noncompliance with insulin. She does verify that she ran out of her insulin. Patient was given IVF bolus in ER and and started on infusion IV fluids with bicarb due to significant acidosis. She was also started on Insulin infusion and Q1H glucose monitoring and admitted to the ICU. Serial labs were performed and her anion gap closed.? IV insulin stopped.? She was started back on Lantus. Diet advanced. Discussed at length multiple times about the benefits of remaining compliant with her medications. Patient with altered mental status on admission.? Brain CT showed no acute findings. Likely metabolic encephalopathy from severe DKA. ?Patient is more awake and appropriate and back to baseline. SIRS present on admission with leukocytosis, Tachycardia and tachypnea. UA clear and chest x-ray negative.? WBC better. Likely dehydration and metabolic derangement from DKA. A1c greater than 14.? Patient has long history of diabetes with noncompliance.? Family was made aware. Cr 1.5 on admission felt related to dehydration and ?ATN from SIRS/DKA. With IV fluids, Cr normalized. She is up walking to the bathroom. She is awake, alert and oriented. She overall did well and was able to be discharged home on 01/20/22. Status at Discharge Cognitive/behavioral status at discharge: Stable Time Spent with Patient Time attestation: Total time spent providing and/or coordinating discharge services: 35 minutes Time spent: Greater than 30 minutes Exam Narrative: AF 97.9 125/64 77 14 98% ra Gen - NARD Chest - Clear bilaterally. CV - RRR S1/S2 Abd - soft. NT Ext - No pedal edema. Neuro - awake, alert and oriented x4. Psych - nml mood Skin - Warm and dry DS: Data Data Completed and Pending Labs on day of discharge: Labs from last 24 hours 01/20/22 01/20/22 01/20/22 11:48 07:24 06:11 WBC RBC Hgb Hct MCV MCH MCHC RDW Plt Count MPV % Immature Plt Fraction Sodium 133 L Potassium 4.3 Chloride 104 Carbon Dioxide 25 Anion Gap 4 L BUN 9 D Creatinine 0.30 L Estim Creat Clear Calc 117 Estimated GFR > 60 Glucose 134 H POC Capillary Glucose 243 H 134 H Calcium 9.5 Phosphorus 2.6 Magnesium 1.9 Total Bilirubin 0.6 AST 22 ALT 12 Alkaline Phosphatase 88 Total Protein 5.0 L Albumin 2.9 L 01/20/22 01/19/22 01/19/22 06:11 20:09 17:43 WBC 5.8 RBC 3.29 L Hgb 10.1 L Hct 31.1 L MCV 94.5 MCH 30.7 MCHC 32.5 RDW 14.7 H Plt Count 146 L MPV 9.3 % Immature Plt F
[2022-01-20 14:00] VITALS: BP 118/68; PULSE 85; RESP 14; TEMP 36.8; O2SAT 98
== END 2022-01-20 14:49 | disposition home or self-care (01) | DRG 637 ==
LOC: ANHED 14:23 → ANHICU 18:38 → ANHIMU 01-18 19:01 → ANH3MEDSUR 01-19 16:17
PROVIDERS: Internal Medicine; Nurse Practitioner; Admitting Provider Internal Medicine; Emergency Provider Emergency Medicine; Visit Provider Internal Medicine
DX: E10.10 Type 1 diabetes mellitus with ketoacidosis without coma (principal); G93.41 Metabolic encephalopathy; R65.10 Systemic inflammatory response syndrome (SIRS) of non-infectious origin without acute organ dysfunction; N17.9 Acute kidney failure, unspecified; E10.42 Type 1 diabetes mellitus with diabetic polyneuropathy; E86.0 Dehydration; E78.5 Hyperlipidemia, unspecified; M79.7 Fibromyalgia; E03.9 Hypothyroidism, unspecified; G25.81 Restless legs syndrome; Z66 Do not resuscitate; Z79.4 Long term (current) use of insulin; Z91.14 Patient's other noncompliance with medication regimen; Z85.43 Personal history of malignant neoplasm of ovary; Z86.16 Personal history of COVID-19; Z90.710 Acquired absence of both cervix and uterus; Z90.79 Acquired absence of other genital organ(s); Z90.722 Acquired absence of ovaries, bilateral
CPT/HCPCS: 36415; 36569; 36600; 51701; 70450; 80048; 80053; 81001; 82010; 82375; 82805; 82947; 82948; 83036; 83050; 83735; 84100; 85025; 85027; 85055; 87086; 87088; 92610; 96361; 96365; 96375; 99285; A9270; C1751; J1650; J1815; J7070; J7120

== ENCOUNTER 2022-01-26 14:26 | Emergency (ER) | payer MEDICARE, SELFPAY ==
--- NOTE | ~2022-01-26 | XR_ITS ---
XR chest 1V portable 01/26/2022 15:15 Indication: Shortness of breath and hypertension. Procedure: AP portable chest Comparison: Comparison to multiple prior studies sequentially, with oldest reviewed study dated 11/27. Findings: Heart size is normal. No focal air space disease, pulmonary edema, pleural effusion or susp ected pneumothorax. There are calcified mediastinal lymph nodes, consistent with chronic granulomatou s disease. Impression: 1: No acute cardiopulmonary disease. Reviewed, dictated and finalized at location A. LY TECH Impression: 1: No acute cardiopulmonary disease.
[2022-01-26 14:32] VITALS: BP 144/82; PULSE 62; RESP 18; TEMP 36.7; O2SAT 99
[2022-01-26 14:40] LABS: Glucose Point of Care > 450 mg/dl (65-105)
[2022-01-26 14:53] VITALS: BP 144/82; PULSE 62; RESP 20; TEMP 36.7; O2SAT 99
--- NOTE | 2022-01-26 14:59 | ECG_ITS ---
Measurements Intervals [place] Rate: 68 P: CA: 0 QRS: 45 QRSD: 91 T: 13 QT: 372 QTc: 397 Interpretive Statements SINUS RHYTHM WITH MARKED SINUS ARRHYTHMIA NONSPECIFIC T-WAVE ABNORMALITY- INFERIOR LEADS BORDERLINE ECG COMPARED TO ECG 01/03/2022 21:27:12 SINUS RHYTHM NOW PRESENT Electronically Signed On 01-26-2022 15:46:51 INFANTRY INDIRECT FIRE CREWMEMBER by Unruly Panchal D.O.
--- NOTE | 2022-01-26 15:17 | PC.NURSE ---
multiple attempts to start iv. pt states i just tired of being stuck . attempt to start unsuccessful x3. multiple bruised areas to arms from previous iv sticks from previous hospital admissions at [facility]. informed dr quigley unsuccessful iv access and pt refusing any other attempts. 6 glasses of water given to pt and encouraged to drink.
[2022-01-26 15:30] VITALS: BP 144/92; PULSE 82; RESP 20; O2SAT 99
[2022-01-26 15:37] LABS: Basophils Absolute Auto 0.02 K/mm3 (0.00-0.10); Basophils Percent Auto 0.4 % (0.0-1.0); Eosinophils Absolute Auto 0.08 K/mm3 (0.02-0.50); Eosinophils Percent Auto 1.6 % (1.0-6.0); Hematocrit 35.7 % (35.0-42.0); Hemoglobin 11.2 g/dL (11.7-13.8); Immature Granulocyte Absolute 0.02 K/mm3 (0.00-0.00); Immature Granulocyte Percent A 0.4 % (0.0-0.0); Lymphocytes Absolute Auto 1.73 K/mm3 (1.10-4.50); Lymphocytes Percent Auto 35.4 % (18.0-42.0); Mean Corpuscular HGB Conc 31.4 g/dL (32.0-36.0); Mean Corpuscular Hemoglobin 31.4 pg (27.0-31.0); Mean Platelet Volume 8.9 fl (9.2-11.8); Monocytes Absolute Auto 0.57 K/mm3 (0.10-0.90); Monocytes Percent Auto 11.7 % (2.0-11.0); Neutrophils Absolute Auto 2.5 K/mm3 (1.7-7.2); Neutrophils Percent Auto 50.5 % (50.0-70.0); Platelet Count Result 348 K/mm3 (150-420); Red Blood Count 3.57 M/mm3 (4.20-5.40); Red Cell Distribution Width 14.2 % (11.6-14.4); White Blood Count 4.9 K/mm3 (4.8-10.8)
[2022-01-26 15:55] LABS: Acetone SMALL (Negative); Lactic Acid Reflex 1.2 mmol/L (0.4-2.0)
[2022-01-26] MEDS: INSULIN HUMAN REGULAR (*BKC) 100 UNITS/ML 10 UNITS SUB-Q (16:00)
[2022-01-26 16:04] LABS: Alanine Aminotransferase 13 U/L (14-59); Albumin Level 3.2 g/dL (3.4-5.0); Alkaline Phosphatase 134 U/L (46-116); Anion Gap 10 mmol/L (8-16); Aspartate Amino Transferase < 10 U/L (15-37); Bilirubin,Total 0.3 mg/dL (0.00-1.00); Blood Urea Nitrogen 16 mg/dL (7-18); Calcium 10.1 mg/dL (8.5-10.1); Carbon Dioxide 29 mmol/L (21-32); Chloride 98 mmol/L (98-108); Estimated CRCL calculation 41 ml/min; Estimated Glomerular Filt Rate > 60; Lipase 172 U/L (73-393); Osmolality Calculated 303 mOsm/kg (285-295); Potassium 4.4 mmol/L (3.5-5.1); Sodium 137 mmol/L (136-145); Total Protein 7.6 g/dL (6.4-8.2)
[2022-01-26 16:06] LABS: Glucose 428 mg/dL (70-99)
[2022-01-26 16:50] LABS: Glucose Point of Care 369 mg/dl (65-105)
[2022-01-26 17:00] VITALS: BP 146/87; PULSE 71; RESP 20; O2SAT 98
[2022-01-26 17:12] LABS: Influenza A QL RT-PCR Negative (Negative); Influenza B QL RT-PCR Negative (Negative)
[2022-01-26 18:09] VITALS: BP 143/89; PULSE 64; RESP 20; O2SAT 99
[2022-01-26 18:13] LABS: SARS-CoV-2 RNA PCR Negative (Negative)
[2022-01-26 18:14] LABS: Glucose Point of Care 262 mg/dl (65-105)
--- NOTE | 2022-01-26 18:20 | ED.GENADULT ---
HPI - General Adult General Chief complaint: Weakness Stated complaint: need iv fluids Time Seen by Provider: 01/26/22 14:30 Source: patient and RN notes reviewed Mode of arrival: wheelchair Limitations: no limitations History of Present Illness Onset (ago): hour(s) (12) Radiation: other (pain-free) Relieving factors: none Exacerbating factors: none Associated symptoms: denies other symptoms Treatments prior to arrival: none Related Data Home Medications Medication Instructions Recorded Confirmed pramipexole 1.5 mg tablet 3 mg PO HS 12/22/21 01/26/22 insulin aspart U-100 100 unit/mL 1 sliding scale dose subcut 01/04/22 01/26/22 subcutaneous solution (Novolog TIDWMEAL U-100 Insulin aspart) Allergies Allergy/AdvReac Type Severity Reaction Status Date / Time banana Allergy Severe SEVERE Verified 01/26/22 08:17 HIVES acetaminophen [From Tylenol] AdvReac Intermediate Nausea and Verified 01/26/22 08:17 Vomiting aspirin AdvReac Intermediate Nausea and Verified 01/26/22 08:17 Vomiting fluoxetine [From Prozac] AdvReac Hallucinati Verified 01/26/22 08:17 ng Review of Systems Review of Systems: All systems reviewed & are unremarkable except as noted in HPI and below Constitutional: Constitutional: Reports no additional constitutional complaints Eyes: Eyes: Reports no additional eye complaints ENT: Reports system reviewed and no additional complaints, except as documented Cardiovascular: Cardiovascular: Reports no additional cardiovascular complaints Respiratory: Respiratory: Reports no additional respiratory complaints Gastrointestinal: Gastrointestinal: Reports no additional gastrointestinal complaints Genitourinary: Genitourinary: Reports no additional female genitourinary complaints Musculoskeletal: Musculoskeletal: Reports no additional musculoskeletal complaints Integumentary/Breasts: Skin/Breast: Reports system reviewed and no additional complaints, except as docu Neurologic: Reports system reviewed and no additional complaints, except as documented Psychiatric: Psychiatric: Reports no additional psychiatric complaints Endocrine: Endocrine: Reports no additional endocrine complaints Hematologic/Lymphatic: Hematologic/Lymphatic: Reports no additional hematologic/lymphatic complaints Allergic/Immunologic: Allergic/Immunologic: Reports no additional allergic/immunologic complaints [facility] Past Medical History Medical History (Updated 01/26/22 @ 18:46 by Skye Oliveros MD) Back pain Dehydration Depression Depression Diabetic peripheral neuropathy Fibromyalgia Hyperglycemia Hypothyroidism Memory change Ovarian cancer At the age of 33, status post hysterectomy. Patient states that half an ovary was left during surgery. She required no further treatment. Pneumonia due to COVID-19 virus (~09/2020) Restless leg syndrome Shingles Type 2 diabetes mellitus Hemoglobin A1c was > 14% August 2021 C-peptide 0.63. Surgical History Surgical History History of tonsillectomy (~1970) History of total hysterectomy with bilateral salpingo-oophorectomy (BSO) (~1983) History of tubal ligation (~1983) Family History Family History Grandparent Family history of premature coronary heart disease, Onset Age: 64 Father Family history of respiratory disorder, Onset Age: 87 Family history of cardiovascular disease Patient's father is Family history of Alzheimer's disease Cerebrovascular accident Mother Family history of primary malignant neoplasm of liver, Onset Age: 64 Family history of malignant neoplasm Patient's mother is , Onset Age: 64 Family history of malignant neoplasm of breast in first degree relative Sibling Heart attack Sibling Heart attack Social History Social History Soc
== END 2022-01-26 18:34 | disposition home or self-care (01) ==
PROVIDERS: Emergency Provider Emergency Medicine; PCP Family Medicine
DX: E11.65 Type 2 diabetes mellitus with hyperglycemia (principal); E86.0 Dehydration; N28.9 Disorder of kidney and ureter, unspecified; Z20.822 Contact with and (suspected) exposure to COVID-19; E03.9 Hypothyroidism, unspecified
CPT/HCPCS: 36415; 71045; 80053; 82010; 82948; 83605; 83690; 85025; 87636; 93005; 99283; J1815

== ENCOUNTER 2022-01-28 14:53 | Inpatient (IN) | payer MEDICARE, SELFPAY ==
[2022-01-28] VITALS (33 sets, daily range): BP systolic 92–129; BP diastolic 44–74; PULSE 71–92; RESP 0–20; TEMP 37–37.3; O2SAT 99–100; BMI 22.2
[2022-01-28 15:00] LABS: Glucose Point of Care 451 mg/dl (65-105)
[2022-01-28] MEDS: SODIUM CHLORIDE 0.9% IV 1,000 ML 999 ML IV CONT ×2 (15:22)
[2022-01-28 15:24] LABS: Basophils Percent Auto 0.5 % (0.2-1.2); Eosinophils Percent Auto 0.5 % (0-4.4); Hematocrit 41.7 % (37.0-47.0); Hemoglobin 12.8 g/dL (12.0-15.0); Immature Granulocyte Absolute 0.05 K/mm3 (0.00-0.031); Immature Granulocyte Percent A 0.6 % (0-0.5); Lymphocytes Absolute Auto 1.57 K/mm3 (0.9-3.2); Lymphocytes Percent Auto 18.5 % (18.3-44.2); Mean Corpuscular HGB Conc 30.7 g/dl (32-36); Mean Corpuscular Hemoglobin 31.6 pg (26-34); Mean Platelet Volume 8.9 fl (7.4-10.4); Monocytes Absolute Auto 0.5 K/mm3 (0.1-0.6); Monocytes Percent Auto 5.8 % (2.6-8.5); Neutrophils Absolute Auto 6.3 K/mm3 (1.3-6.7); Neutrophils Percent Auto 74.1 % (45.5-73.1); Platelet Count Result 406 k/mm3 (150-375); Red Blood Count 4.05 M/mm3 (4.2-5.4); Red Cell Distribution Width 14.6 % (11.5-14.5); White Blood Count 8.5 K/mm3 (4.5-10.0)
--- NOTE | 2022-01-28 15:48 | ED.GENADULT ---
HPI - General Adult General Chief complaint: Recheck/Abnormal Lab/Rx Stated complaint: hyperglycemia Time Seen by Provider: 01/28/22 15:12 History of Present Illness HPI narrative: Patient is a 71-year-old female who presents ER with elevated blood sugars. Patient has history of noncompliance with her insulin that causes her to go into DKA. Most recent hospitalization last month. Patient reports her nosy neighbor came in and took her blood sugar and found it to be greater than 400. Patient reports she has been feeling weak. She only gave her self 5 units of insulin today and only gave herself 1 dose of insulin yesterday as well. Reports she is too tired to give herself insulin. Patient denies any falls or other injuries. No fevers or chills or sweats. No new cough. Denies urinary frequency urgency or dysuria. Related Data Home Medications Medication Instructions Recorded Confirmed pramipexole 1.5 mg tablet 3 mg PO HS 12/22/21 01/28/22 insulin aspart U-100 100 unit/mL 1 sliding scale dose subcut 01/04/22 01/28/22 subcutaneous solution (Novolog TIDWMEAL U-100 Insulin aspart) insulin aspart U-100 100 unit/mL 2 unit subcut TIDWMEAL 01/28/22 01/28/22 subcutaneous solution (Novolog U-100 Insulin aspart) insulin glargine 100 unit/mL 35 unit subcut HS 01/28/22 01/28/22 subcutaneous solution (Lantus U-100 Insulin) Allergies Allergy/AdvReac Type Severity Reaction Status Date / Time banana Allergy Severe SEVERE Verified 01/28/22 07:02 HIVES acetaminophen [From Tylenol] AdvReac Intermediate Nausea and Verified 01/28/22 07:02 Vomiting aspirin AdvReac Intermediate Nausea and Verified 01/28/22 07:02 Vomiting fluoxetine [From Prozac] AdvReac Hallucinati Verified 01/28/22 07:02 ng Review of Systems Review of Systems: All systems reviewed & are unremarkable except as noted in HPI and below Constitutional: Constitutional: Denies chills, Reports fatigue and Denies fever(s) ENT: Denies nasal congestion and Denies sore throat Cardiovascular: Cardiovascular: Denies chest pain, Denies rapid heart rate and Denies radiating jaw, neck or arm pain Respiratory: Respiratory: Denies cough and Denies dyspnea Gastrointestinal: Gastrointestinal: Denies abdominal pain, Denies nausea and Denies vomiting Genitourinary: Genitourinary: Denies nocturia, Denies dysuria and Denies flank pain Neurologic: Denies syncope, Denies headache(s), Denies focal weakness and Denies numbness PMFSH Past Medical History Medical History Back pain Dehydration Depression Depression Diabetic peripheral neuropathy Fibromyalgia Hyperglycemia Hypothyroidism Memory change Ovarian cancer At the age of 33, status post hysterectomy. Patient states that half an ovary was left during surgery. She required no further treatment. Pneumonia due to COVID-19 virus (~09/2020) Restless leg syndrome Shingles Type 2 diabetes mellitus Hemoglobin A1c was > 14% August 2021 C-peptide 0.63. Surgical History Surgical History History of tonsillectomy (~1970) History of total hysterectomy with bilateral salpingo-oophorectomy (BSO) (~1983) History of tubal ligation (~1983) Family History Family History Grandparent Family history of premature coronary heart disease, Onset Age: 64 Father Family history of respiratory disorder, Onset Age: 87 Family history of cardiovascular disease Patient's father is Family history of Alzheimer's disease Cerebrovascular accident Mother Family history of primary malignant neoplasm of liver, Onset Age: 64 Family history of malignant neoplasm Patient's mother is , Onset Age: 64 Family history of malignant neoplasm of breast in first degree relative Sibling Heart attack Sibling Heart attack Social Hi
[2022-01-28 15:57] LABS: Appearance Urine Clear (Clear); Bilirubin Urine 1+ (Negative); Blood Urine Negative (Negative); Color Urine Yellow (Yellow); Glucose Urine UA 2+ mg/dL (Negative); Ketones Urine 4+ mg/dL (Negative); Leukocyte Esterase Ur Negative LEU/UL (Negative); Nitrate Urine Negative (Negative); Protein Urine 1+ mg/dL (Negative); Urobilinogen Urine 0.2 mg/dL (<2.0)
[2022-01-28 16:09] LABS: Mucus Urine Rare /lpf; Squamous Epithelial Cell Urine Rare /hpf (Few); WBC Urine 0-3 /hpf
[2022-01-28 16:11] LABS: Alanine Aminotransferase 14 U/L (6-35); Albumin Level 4.7 g/dL (3.5-5.1); Alkaline Phosphatase 176 U/L (38-126); Anion Gap 25 mmol/L (8-16); Aspartate Amino Transferase 15 U/L (14-36); Bilirubin,Total 0.4 mg/dL (0.2-1.3); Blood Urea Nitrogen 21 mg/dL (7-17); Calcium 11.4 mg/dL (8.4-10.2); Carbon Dioxide 9 mmol/L (22-30); Chloride 99 mmol/L (98-107); Estimated CRCL calculation 53 ml/min; Estimated Glomerular Filt Rate > 60; Glucose 505 mg/dL (65-110); Magnesium 2.6 mg/dL (1.6-2.3); Phosphorus 3.6 mg/dL (2.5-4.5); Potassium 5.3 mmol/L (3.4-5.0); Sodium 133 mmol/L (137-145)
[2022-01-28 16:14] LABS: Add Urine Microscopic? YES
[2022-01-28 16:31] LABS: Glucose Point of Care 391 mg/dl (65-105)
[2022-01-28 16:46] LABS: Base Excess ABG -14.8 mEq/l (+/-2.0); Carboxyhemoglobin 0.2 % THb (0-2.0); Fractional Inspired Oxygen 21 %; HCO3 ABG 9.9 mEq/l (22.0-26.0); Methemoglobin ABG 0.4 %THb (0-1.5); Oxygen Content ABG 16.6 %vol (16.0-22.0); Oxygen Saturation ABG 97.1 % (95.0-100.0); Oxyhemoglobin 96.2 % THb (90.0-100.0); PO2 ABG 101.9 mmHg (80.0-100.0); PO2 FiO2 Ratio Arterial Blood 4.85 %; Reduced Hemoglobin 3.2 %THb (0-5.0); Total Hemoglobin 12.2 g/dL (12.0-18.0)
[2022-01-28 16:48] LABS: pH ABG 7.281 (7.350-7.450)
[2022-01-28 16:49] LABS: Device ROOM AIR; Modified Allen's Test Pass; PCO2 ABG 21.6 mmHg (35.0-45.0); Site Drawn LEFT RADIAL
--- NOTE | 2022-01-28 17:03 | ECG_ITS ---
Measurements Intervals [place] Rate: 75 P: 64 [place]: 185 QRS: 39 QRSD: 95 T: 20 QT: 368 QTc: 412 Interpretive Statements SINUS RHYTHM WITH FREQUENT PREMATURE ATRIAL CONTRACTIONS NONSPECIFIC T-WAVE ABNORMALITY BORDERLINE ECG COMPARED TO ECG 01/26/2022 15:31:31 NO SIGNIFICANT CHANGES Electronically Signed On 01-30-2022 13:30:06 [employer]PLICATIONS DEVELOPER by Alberto Louise M.D.
--- NOTE | 2022-01-28 17:24 | PC.NURSE ---
Per MD, wait until bolus is complete and check BS before starting insulin drip.
--- NOTE | 2022-01-28 17:42 | PM.IMHP ---
H&P: HPI History of Present Illness Date/Time: 01/28/22 17:42 Chief Complaint: Hyperglycemia Narrative: This is a 71-year-old female patient who has had multiple admissions for DKA. The patient was discharged from this hospital on 01/26/2022 for DKA. The patient tells me that her daughter is out of town and that she was feeling very ill. She vomited all of her clothes prior to coming to the hospital. She admits to not taking the insulin as prescribed. The patient stated that she was too tired and weak to take her insulin. The patient's blood sugar was checked by her neighbor who came in and took her blood sugar and found to be over 400. The patient was feeling very weak. The patient gave herself 5 units of insulin today and only 1 dose of insulin yesterday as well. On her ABGs pH was 7.281 CO2 was 21.6. Potassium was 5.3 BUN 21 creatinine 0.60. Her blood sugar was 505 and then came down to 369. Her A1cs have all been over 14.0. Her calcium is 11.4. Magnesium 2.6. The patient was given 2 L of IV fluids IV insulin and the patient was complaining of her legs aching so I gave her some Ativan. The assembler crimper was notified and consulted for DKA. Initially the patient was admitted for observation and then changed to inpatient status. Date of service is 01/28/2022. Review of Systems Review of Systems: All systems reviewed & are unremarkable except as noted in HPI and below Constitutional: Constitutional: Reports as per HPI and Reports no additional constitutional complaints Eyes: Eyes: Reports as per HPI and Reports no additional eye complaints ENT: Reports system reviewed and no additional complaints, except as documented and Reports Normal hearing present Cardiovascular: Cardiovascular: Reports no additional cardiovascular complaints Respiratory: Respiratory: Reports no additional respiratory complaints and Reports no additional respiratory complaints Gastrointestinal: Gastrointestinal: Reports as per HPI and Reports no additional gastrointestinal complaints Musculoskeletal: Musculoskeletal: Reports no additional musculoskeletal complaints Integumentary/Breasts: Skin/Breast: Reports system reviewed and no additional complaints, except as docu and Reports as per HPI Neurologic: Reports system reviewed and no additional complaints, except as documented, Reports as per HPI and Reports Normal hearing present Psychiatric: Psychiatric: Reports no additional psychiatric complaints and Reports as per HPI Endocrine: Endocrine: Reports no additional endocrine complaints Hematologic/Lymphatic: Hematologic/Lymphatic: Reports no additional hematologic/lymphatic complaints Allergic/Immunologic: Allergic/Immunologic: Reports no additional allergic/immunologic complaints PMFSH Past Medical History Medical History Back pain Dehydration Depression Depression Diabetic peripheral neuropathy Fibromyalgia Hyperglycemia Hypothyroidism Memory change Ovarian cancer At the age of 33, status post hysterectomy. Patient states that half an ovary was left during surgery. She required no further treatment. Pneumonia due to COVID-19 virus (~09/2020) Restless leg syndrome Shingles Type 2 diabetes mellitus Hemoglobin A1c was > 14% August 2021 C-peptide 0.63. Surgical History Surgical History History of tonsillectomy (~1970) History of total hysterectomy with bilateral salpingo-oophorectomy (BSO) (~1983) History of tubal ligation (~1983) Family History Family History Grandparent Family history of premature coronary heart disease, Onset Age: 64 Father Family history of respiratory disorder, Onset Age: 87 Family history of cardiovascular disease Patient's father is Family history of Alzheimer's disease Cerebrovascular accident Mother Family history of
--- NOTE | 2022-01-28 18:30 | PC.NURSE ---
Pt was not given Ativan. Pharmacy was notified that Ativan was returned unused into box [employer].
[2022-01-28 18:34] LABS: Glucose Point of Care 369 mg/dl (65-105)
[2022-01-28] MEDS: INSULIN HUMAN REGULAR (*BKC) 100 UNITS in SODIUM CHLORIDE 0.9% IV 99 ML 6.6 UNITS IV CONT (18:41)
[2022-01-28 19:11] LABS: Troponin I < 0.012 ng/mL (0.000-0.034)
[2022-01-28] MEDS: SODIUM CHLORIDE 0.9% IV 1,000 ML 150 ML IV CONT (20:09)
[2022-01-28 21:10] LABS: Glucose Point of Care 224 mg/dl (65-105)
[2022-01-28] MEDS: KCL 20 MEQ/D5/0.45% SOD CHL 1,000 ML 150 ML IV CONT (21:30)
[2022-01-28 22:03] LABS: Glucose Point of Care 301 mg/dl (65-105)
[2022-01-28 22:03] LABS: Glucose Point of Care 151 mg/dl (65-105)
[2022-01-28] MEDS: PRAMIPEXOLE 1 MG TABLET 3 MG PO (22:26)
[2022-01-28 23:01] LABS: Glucose Point of Care 139 mg/dl (65-105)
[2022-01-28 23:02] LABS: Anion Gap 13 mmol/L (8-16); Blood Urea Nitrogen 17 mg/dL (7-17); Calcium 10.2 mg/dL (8.4-10.2); Carbon Dioxide 15 mmol/L (22-30); Chloride 108 mmol/L (98-107); Estimated CRCL calculation 76 ml/min; Estimated Glomerular Filt Rate > 60; Glucose 147 mg/dL (65-110); Potassium 3.9 mmol/L (3.4-5.0); Sodium 136 mmol/L (137-145)
[2022-01-29] VITALS (12 sets, daily range): BP systolic 88–142; BP diastolic 44–77; PULSE 66–78; RESP 12–20; TEMP 36.1–37.2; O2SAT 98–100
[2022-01-29 00:10] LABS: Glucose Point of Care 133 mg/dl (65-105)
[2022-01-29 01:09] LABS: Glucose Point of Care 119 mg/dl (65-105)
[2022-01-29 02:06] LABS: Glucose Point of Care 120 mg/dl (65-105)
[2022-01-29 02:36] LABS: Anion Gap 7 mmol/L (8-16); Blood Urea Nitrogen 17 mg/dL (7-17); Calcium 9.4 mg/dL (8.4-10.2); Carbon Dioxide 18 mmol/L (22-30); Chloride 112 mmol/L (98-107); Estimated CRCL calculation 97 ml/min; Estimated Glomerular Filt Rate > 60; Glucose 122 mg/dL (65-110); Potassium 3.8 mmol/L (3.4-5.0); Sodium 137 mmol/L (137-145)
[2022-01-29 03:06] LABS: Glucose Point of Care 123 mg/dl (65-105)
[2022-01-29] MEDS: KCL 20 MEQ/D5/0.45% SOD CHL 1,000 ML 150 ML IV CONT (03:55)
[2022-01-29 04:01] LABS: Glucose Point of Care 120 mg/dl (65-105)
[2022-01-29 04:31] LABS: Basophils Percent Auto 0.5 % (0.2-1.2); Eosinophils Absolute Auto 0.1 K/mm3 (0-0.3); Eosinophils Percent Auto 1.4 % (0-4.4); Hematocrit 32.5 % (37.0-47.0); Hemoglobin 10.3 g/dL (12.0-15.0); Immature Granulocyte Absolute 0.02 K/mm3 (0.00-0.031); Immature Granulocyte Percent A 0.3 % (0-0.5); Lymphocytes Absolute Auto 1.98 K/mm3 (0.9-3.2); Lymphocytes Percent Auto 26.9 % (18.3-44.2); Mean Corpuscular HGB Conc 31.7 g/dl (32-36); Mean Corpuscular Hemoglobin 31.2 pg (26-34); Mean Corpuscular Volume 98.5 fl (80-100); Mean Platelet Volume 8.3 fl (7.4-10.4); Monocytes Absolute Auto 0.6 K/mm3 (0.1-0.6); Monocytes Percent Auto 7.9 % (2.6-8.5); Neutrophils Absolute Auto 4.6 K/mm3 (1.3-6.7); Platelet Count Result 300 k/mm3 (150-375); Red Cell Distribution Width 14.5 % (11.5-14.5); White Blood Count 7.4 K/mm3 (4.5-10.0)
[2022-01-29 04:43] LABS: Alanine Aminotransferase 9 U/L (6-35); Albumin Level 3.2 g/dL (3.5-5.1); Alkaline Phosphatase 100 U/L (38-126); Anion Gap 8 mmol/L (8-16); Aspartate Amino Transferase 16 U/L (14-36); Bilirubin,Total 0.2 mg/dL (0.2-1.3); Blood Urea Nitrogen 16 mg/dL (7-17); Calcium 9.4 mg/dL (8.4-10.2); Carbon Dioxide 18 mmol/L (22-30); Chloride 108 mmol/L (98-107); Estimated CRCL calculation 76 ml/min; Estimated Glomerular Filt Rate > 60; Glucose 121 mg/dL (65-110); Potassium 3.9 mmol/L (3.4-5.0); Sodium 134 mmol/L (137-145)
[2022-01-29 05:48] LABS: Glucose Point of Care 113 mg/dl (65-105)
[2022-01-29 06:02] LABS: Glucose Point of Care 111 mg/dl (65-105)
[2022-01-29 07:01] LABS: Glucose Point of Care 142 mg/dl (65-105)
[2022-01-29 09:06] LABS: Glucose Point of Care 131 mg/dl (65-105)
[2022-01-29 09:06] LABS: Glucose Point of Care 124 mg/dl (65-105)
[2022-01-29 09:19] LABS: Anion Gap 4 mmol/L (8-16); Blood Urea Nitrogen 15 mg/dL (7-17); Calcium 9.3 mg/dL (8.4-10.2); Carbon Dioxide 20 mmol/L (22-30); Chloride 108 mmol/L (98-107); Estimated CRCL calculation 97 ml/min; Estimated Glomerular Filt Rate > 60; Glucose 122 mg/dL (65-110); Potassium 3.9 mmol/L (3.4-5.0); Sodium 132 mmol/L (137-145)
[2022-01-29] MEDS: INSULIN GLARGINE (*BKC) 100 UNITS/ML 25 UNITS SUB-Q (09:43)
--- NOTE | 2022-01-29 11:48 | WPDCNINT ---
Assessment and Plan Assessment and plan (1) DKA (diabetic ketoacidosis): Code(s): E11.10 - Type 2 diabetes mellitus with ketoacidosis without coma Status: Acute Assessment and Plan: Presented with generalized weakness on 01/28/2022 to the ER, blood sugars were also elevated home when checked by a neighbor. -in the ER patient was hyperglycemic with an anion gap metabolic acidosis, positive beta hydroxybutyrate and positive ketones in the urine -patient was given IV fluids and started on insulin infusion per DKA protocol and transfer the ICU -this morning patient's anion gap is closed, blood sugars have been stable, will transition patient to long-acting insulin Lantus and sliding scale insulin -will start diabetic diet -hemoglobin A1c > 14.0 on 01/17/2022 -I discussed with the patient that she needs to be compliant with her insulin and given her elevated hemoglobin A1c she is at risk for developing heart disease, kidney issues, eye problems. -will consult health care liaison as well as staff educator to evaluate the patient for noncompliance with her diabetes medications (2) Depression: Code(s): F32.A - Depression, unspecified Status: Acute Assessment and Plan: History of depression, do not see any medications listed that she takes at home (3) Restless leg syndrome: Code(s): G25.81 - Restless legs syndrome Status: Acute Assessment and Plan: Will start pramipexole which is her home medication Plan DVT prophylaxis: Stress ulcer prophylaxis: Nutrition: Diabetic diet Code Status: Full code Critical Care Time Spent: 43 minutes Due to a high probability of clinically significant, life threatening deterioration, the patient required my highest level of preparedness to intervene emergently and I personally spent this critical care time directly and personally managing the patient. This critical care time included obtaining a history; examining the patient; pulse oximetry; ordering and review of studies; arranging urgent treatment with development of a management plan; evaluation of patient's response to treatment; frequent reassessment; and discussions with other providers. It was exclusive of separately billable procedures and treating other patients and teaching time. Please see Assessment and Plan section and the rest of the note for further information on patient assessment and treatment [employer] Consult Note Consult date: 01/29/22 Reason for consult: Diabetic ketoacidosis, weakness, hyperglycemia, noncompliance HPI: Karly Leslie is a 71 year old female past medical history of diabetes, multiple admissions for DKA, depression, diabetic peripheral neuropathy, hypothyroidism, ovarian cancer at age of 33, pneumonia due to COVID in September 2020, restless leg syndrome, history of shingles presented to the ED on 01/28/2022 with complaints of generalized weakness, hyperglycemia. According the records patient's neighbor came and checked her blood sugars and was found to be over 400. Patient states she does not like to take her insulin and has been noncompliant ED patient was found to have anion gap metabolic acidosis, blood sugars were 505, elevated beta hydroxybutyrate, positive ketones in the urine. Patient was diagnosed with diabetic ketoacidosis, given 2 L IV fluids in started on insulin infusion per DKA protocol. Patient was transferred to the ICU for further management. UA was negative and so was the chest x-ray. 01/29/2022: Patient seen and examined the ICU, remains on insulin infusion, anion gap has closed, blood sugars have been stable, patient denies any nausea, vomiting, diarrhea, abdominal pain, shortness of breath, chest pain. Patient states she does not like taking the insulin needles. Urine output has been adequate, patient is afebrile and hemodynamically stable Review of Systems Review of Systems: All systems reviewed & are unremarkable except as noted in HPI and below PMFS
[2022-01-29 12:18] LABS: Glucose Point of Care 231 mg/dl (65-105)
[2022-01-29] MEDS: INSULIN ASPART (*BKC) 100 UNITS/ML SUB-Q ×2 (12:21→17:47)
[2022-01-29 16:28] LABS: Glucose Point of Care 271 mg/dl (65-105)
--- NOTE | 2022-01-29 16:53 | PM.IMPN ---
Progress Note: A&P Assessment and Plan (1) DKA (diabetic ketoacidosis): Code(s): E11.10 - Type 2 diabetes mellitus with ketoacidosis without coma Status: Acute Assessment and Plan: Presented with generalized weakness on 01/28/2022 to the ER, blood sugars were also elevated home when checked by a neighbor. -in the ER patient was hyperglycemic with an anion gap metabolic acidosis, positive beta hydroxybutyrate and positive ketones in the urine -patient was given IV fluids and started on insulin infusion per DKA protocol and transfer the ICU -this morning patient's anion gap is closed, blood sugars have been stable, will transition patient to long-acting insulin Lantus and sliding scale insulin -will start diabetic diet -hemoglobin A1c > 14.0 on 01/17/2022 -I discussed with the patient that she needs to be compliant with her insulin and given her elevated hemoglobin A1c she is at risk for developing heart disease, kidney issues, eye problems. -will consult adult caregiver as well as adult remedial education instructor to evaluate the patient for noncompliance with her diabetes medications 01/29/2022 interval history: Patient with type 2 diabetes insulin dependent and history of recurrent DKA due to noncompliance of insulin, patient presented with DKA was vigorously hydrated and insulin infusion was started, patient blood sugars are trending down and now on long-acting insulin with sliding scale, will transfer patient out of the ICU to medical floor, patient need to see Endocrinology and may benefit from insulin pump, will continue to monitor and further recommendation to follow. (2) Depression: Code(s): F32.A - Depression, unspecified Status: Acute Assessment and Plan: History of depression, do not see any medications listed that she takes at home (3) Restless leg syndrome: Code(s): G25.81 - Restless legs syndrome Status: Acute Assessment and Plan: Will start pramipexole which is her home medication Subjective Date/time seen: 01/29/22 16:53 Hyperglycemia HPI-Narrative: This is a 71-year-old female patient who has had multiple admissions for DKA.? The patient was discharged from this hospital on 01/26/2022 for DKA.? The patient tells me that her daughter is out of town and that she was feeling very ill.? She vomited all of her clothes prior to coming to the hospital.? She admits to not taking the insulin as prescribed.? The patient stated that she was too tired and weak to take her insulin.? The patient's blood sugar was checked by her neighbor who came in and took her blood sugar and found to be over 400.? The patient was feeling very weak.? The patient gave herself 5 units of insulin today and only 1 dose of insulin yesterday as well.? On her ABGs pH was 7.281 CO2 was 21.6.? Potassium was 5.3 BUN 21 creatinine 0.60.? Her blood sugar was 505 and then came down to 369.? Her A1cs have all been over 14.0.? Her calcium is 11.4.? Magnesium 2.6.? The patient was given 2 L of IV fluids IV insulin and the patient was complaining of her legs aching so I gave her some Ativan.? The site supervisor was notified and consulted for DKA.? Initially the patient was admitted for observation and then changed to inpatient status.? Date of service is 01/28/2022. 01/29/2022 interval history: Patient with type 2 diabetes insulin dependent and history of recurrent DKA due to noncompliance of insulin, patient presented with DKA was vigorously hydrated and insulin infusion was started, patient blood sugars are trending down and now on long-acting insulin with sliding scale, will transfer patient out of the ICU to medical floor, patient need to see Endocrinology and may benefit from insulin pump, will continue to monitor and further recommendation to follow. Review of Systems Review of Systems: All systems reviewed & are unremarkable except as noted in HPI and below Exam Narrative: Patient is comfortable, NAD HEENT: eyes are clear and none i
--- NOTE | 2022-01-29 17:00 | PC.NURSE ---
This patient, Karly Leslie, was transferred to [facility] on 01/29/22 at 1700. Personal belongings sent with patient. Report given to Brooklynn CHRISTIANSON. Appropriate documentation sent with patient.
[2022-01-29] MEDS: PRAMIPEXOLE 1 MG TABLET 3 MG PO (20:24)
[2022-01-29 20:56] LABS: Glucose Point of Care 255 mg/dl (65-105)
[2022-01-30 04:00] VITALS: BP 136/71; PULSE 70; RESP 14; TEMP 36.1; O2SAT 98
[2022-01-30 07:54] LABS: Glucose Point of Care 160 mg/dl (65-105)
[2022-01-30 08:00] VITALS: BP 119/66; PULSE 69; RESP 16; TEMP 36.6; O2SAT 97
[2022-01-30] MEDS: INSULIN GLARGINE (*BKC) 100 UNITS/ML 25 UNITS SUB-Q (09:10)
[2022-01-30 10:01] LABS: Hematocrit 38.1 % (37.0-47.0); Hemoglobin 12.5 g/dL (12.0-15.0); Mean Corpuscular HGB Conc 32.8 g/dl (32-36); Mean Corpuscular Volume 97.4 fl (80-100); Mean Platelet Volume 8.3 fl (7.4-10.4); Platelet Count Result 250 k/mm3 (150-375); Red Blood Count 3.91 M/mm3 (4.2-5.4); Red Cell Distribution Width 14.3 % (11.5-14.5); White Blood Count 6.3 K/mm3 (4.5-10.0)
[2022-01-30 11:54] LABS: Glucose Point of Care 276 mg/dl (65-105)
[2022-01-30 12:13] VITALS: BP 124/70; PULSE 76; RESP 16; TEMP 36.6; O2SAT 97
[2022-01-30 12:16] LABS: Anion Gap 4 mmol/L (8-16); Blood Urea Nitrogen 10 mg/dL (7-17); Calcium 9.1 mg/dL (8.4-10.2); Carbon Dioxide 21 mmol/L (22-30); Chloride 106 mmol/L (98-107); Estimated CRCL calculation 76 ml/min; Estimated Glomerular Filt Rate > 60; Glucose 250 mg/dL (65-110); Magnesium 1.8 mg/dL (1.6-2.3); Potassium 3.6 mmol/L (3.4-5.0); Sodium 131 mmol/L (137-145)
[2022-01-30] MEDS: INSULIN ASPART (*BKC) 100 UNITS/ML SUB-Q (12:26)
--- NOTE | 2022-01-30 14:01 | PM.IMPN ---
Progress Note: A&P Assessment and Plan (1) DKA (diabetic ketoacidosis): Code(s): E11.10 - Type 2 diabetes mellitus with ketoacidosis without coma Status: Acute Assessment and Plan: Presented with generalized weakness on 01/28/2022 to the ER, blood sugars were also elevated home when checked by a neighbor. -in the ER patient was hyperglycemic with an anion gap metabolic acidosis, positive beta hydroxybutyrate and positive ketones in the urine -patient was given IV fluids and started on insulin infusion per DKA protocol and transfer the ICU -this morning patient's anion gap is closed, blood sugars have been stable, will transition patient to long-acting insulin Lantus and sliding scale insulin -will start diabetic diet -hemoglobin A1c > 14.0 on 01/17/2022 -I discussed with the patient that she needs to be compliant with her insulin and given her elevated hemoglobin A1c she is at risk for developing heart disease, kidney issues, eye problems. -will consult career development director as well as certified diabetes educator to evaluate the patient for noncompliance with her diabetes medications 01/30/2022 interval history: Patient with type 2 diabetes insulin dependent and history of recurrent DKA due to noncompliance of insulin, patient presented with DKA was vigorously hydrated and insulin infusion was started, patient blood sugars are trending down and now on long-acting insulin with sliding scale, was transferred patient out of the ICU to medical floor, patient need to see Endocrinology and may benefit from insulin pump, will continue to monitor and further recommendation to follow. (2) Depression: Code(s): F32.A - Depression, unspecified Status: Acute Assessment and Plan: History of depression, do not see any medications listed that she takes at home (3) Restless leg syndrome: Code(s): G25.81 - Restless legs syndrome Status: Acute Assessment and Plan: Will start pramipexole which is her home medication Subjective Date/time seen: 01/30/22 14:01 01/30/2022 interval history: Patient with type 2 diabetes insulin dependent and history of recurrent DKA due to noncompliance of insulin, patient presented with DKA was vigorously hydrated and insulin infusion was started, patient blood sugars are trending down and now on long-acting insulin with sliding scale, was transferred patient out of the ICU to medical floor, patient need to see Endocrinology and may benefit from insulin pump, will continue to monitor and further recommendation to follow. Review of Systems Review of Systems: All systems reviewed & are unremarkable except as noted in HPI and below Exam Narrative: Patient is comfortable, NAD HEENT: eyes are clear and none icteric LUNGS: normal respiratory ABD: BS+, Soft and nontender Lower extremities: no edema SKIN: nonjaundiced Neuro: grossly intact. Objective Data Vital Signs Vital Signs: Vital Signs - 24 hr 01/29/22 17:00 01/29/22 20:00 01/29/22 23:59 Temperature 96.9 F L 97.0 F L 96.9 F L Pulse Rate 74 67 74 Respiratory Rate 14 14 14 Blood Pressure 134/74 112/58 L 106/51 L Pulse Oximetry 100 100 98 Oxygen Delivery 01/29/22 20:25 01/30/22 04:00 01/30/22 08:00 Temperature 96.9 F L 97.9 F Pulse Rate 70 69 Respiratory Rate 14 16 Blood Pressure 136/71 119/66 Pulse Oximetry 98 97 Oxygen Delivery Room Air 01/30/22 12:13 Temperature 97.8 F Pulse Rate 76 Respiratory Rate 16 Blood Pressure 124/70 Pulse Oximetry 97 Oxygen Delivery Intake/Output Intake/Output: Intake & Output 01/27/22 01/28/22 01/29/22 01/30/22 23:59 23:59 23:59 23:59 Intake Total 2200 2637.7 740 Output Total 950 1100 Balance 2200 1687.7 -360 Meds/Results Medications: Active Medications Generic Name Dose Route Start Last Admin Trade Name Freq PRN Reason Stop Dose Admin Dextrose 12.5 gm 01/29/22 09:17 Dextrose 50% 25 Gm/50 Ml Syringe IV PUSH PRN PRN Hypoglycemia
[2022-01-30 16:34] LABS: Glucose Point of Care 150 mg/dl (65-105)
[2022-01-30 16:49] VITALS: BP 123/71; PULSE 68; RESP 16; TEMP 36.6; O2SAT 97
[2022-01-30 20:00] VITALS: BP 118/78; PULSE 72; RESP 20; TEMP 36.6; O2SAT 98
[2022-01-30] MEDS: PRAMIPEXOLE 1 MG TABLET 3 MG PO (20:55)
[2022-01-30 21:04] LABS: Glucose Point of Care 278 mg/dl (65-105)
[2022-01-31] VITALS: BP 119/70; PULSE 65; RESP 20; TEMP 36.3; O2SAT 98
[2022-01-31 04:00] VITALS: BP 119/63; PULSE 71; RESP 18; TEMP 37; O2SAT 99
[2022-01-31 07:27] LABS: Hematocrit 35.6 % (37.0-47.0); Hemoglobin 11.7 g/dL (12.0-15.0); Mean Corpuscular HGB Conc 32.9 g/dl (32-36); Mean Corpuscular Hemoglobin 31.1 pg (26-34); Mean Corpuscular Volume 94.7 fl (80-100); Mean Platelet Volume 8.5 fl (7.4-10.4); Platelet Count Result 229 k/mm3 (150-375); Red Blood Count 3.76 M/mm3 (4.2-5.4); Red Cell Distribution Width 14.2 % (11.5-14.5)
[2022-01-31 07:36] LABS: Anion Gap 3 mmol/L (8-16); Blood Urea Nitrogen 8 mg/dL (7-17); Calcium 9.4 mg/dL (8.4-10.2); Carbon Dioxide 27 mmol/L (22-30); Chloride 103 mmol/L (98-107); Estimated CRCL calculation 76 ml/min; Estimated Glomerular Filt Rate > 60; Glucose 157 mg/dL (65-110); Magnesium 1.9 mg/dL (1.6-2.3); Potassium 3.5 mmol/L (3.4-5.0); Sodium 133 mmol/L (137-145)
[2022-01-31 08:19] LABS: Glucose Point of Care 179 mg/dl (65-105)
[2022-01-31] MEDS: INSULIN GLARGINE (*BKC) 100 UNITS/ML 25 UNITS SUB-Q (08:35)
--- NOTE | 2022-01-31 09:40 | PM.DS ---
DS: Admitting Diagnosis Discharge Date 01/31/2022 Admitting Diagnosis hyperglycemia DS: Discharge Diagnosis Discharge Diagnosis (1) DKA (diabetic ketoacidosis): Code(s): E11.10 - Type 2 diabetes mellitus with ketoacidosis without coma Status: Acute Assessment and Plan: Presented with generalized weakness on 01/28/2022 to the ER, blood sugars were also elevated home when checked by a neighbor. -in the ER patient was hyperglycemic with an anion gap metabolic acidosis, positive beta hydroxybutyrate and positive ketones in the urine -patient was given IV fluids and started on insulin infusion per DKA protocol and transfer the ICU -this morning patient's anion gap is closed, blood sugars have been stable, will transition patient to long-acting insulin Lantus and sliding scale insulin -will start diabetic diet -hemoglobin A1c > 14.0 on 01/17/2022 -I discussed with the patient that she needs to be compliant with her insulin and given her elevated hemoglobin A1c she is at risk for developing heart disease, kidney issues, eye problems. -will consult health care recruiter as well as art educator to evaluate the patient for noncompliance with her diabetes medications 01/30/2022 interval history: Patient with type 2 diabetes insulin dependent and history of recurrent DKA due to noncompliance of insulin, patient presented with DKA was vigorously hydrated and insulin infusion was started, patient blood sugars are trending down and now on long-acting insulin with sliding scale, was transferred patient out of the ICU to medical floor, patient need to see Endocrinology and may benefit from insulin pump, will continue to monitor and further recommendation to follow. (2) Depression: Code(s): F32.A - Depression, unspecified Status: Acute Assessment and Plan: History of depression, do not see any medications listed that she takes at home (3) Restless leg syndrome: Code(s): G25.81 - Restless legs syndrome Status: Acute Assessment and Plan: Will start pramipexole which is her home medication DS: Summary Hospital Course Reason for hospitalization: Hyperglycemia Narrative: This is a 71-year-old female patient who has had multiple admissions for DKA.? The patient was discharged from this hospital on 01/26/2022 for DKA.? The patient tells me that her daughter is out of town and that she was feeling very ill.? She vomited all of her clothes prior to coming to the hospital.? She admits to not taking the insulin as prescribed.? The patient stated that she was too tired and weak to take her insulin.? The patient's blood sugar was checked by her neighbor who came in and took her blood sugar and found to be over 400.? The patient was feeling very weak.? The patient gave herself 5 units of insulin today and only 1 dose of insulin yesterday as well.? On her ABGs pH was 7.281 CO2 was 21.6.? Potassium was 5.3 BUN 21 creatinine 0.60.? Her blood sugar was 505 and then came down to 369.? Her A1cs have all been over 14.0.? Her calcium is 11.4.? Magnesium 2.6.? The patient was given 2 L of IV fluids IV insulin and the patient was complaining of her legs aching so I gave her some Ativan.? The armoured corps officer was notified and consulted for DKA.? Initially the patient was admitted for observation and then changed to inpatient status.? Date of service is 01/28/2022. Hospital Course: Presented with generalized weakness on 01/28/2022 to the ER, blood sugars were also elevated home when checked by a neighbor. -in the ER patient was hyperglycemic with an anion gap metabolic acidosis, positive beta hydroxybutyrate and positive ketones in the urine -patient was given IV fluids and started on insulin infusion per DKA protocol and transfer the ICU -this morning patient's anion gap is closed, blood sugars have been stable, will transition patient to long-acting insulin Lantus and sliding scale insulin -will start diabetic diet -hemoglobin A1c > 14.0 on
== END 2022-01-31 11:00 | disposition home or self-care (01) | DRG 639 ==
LOC: ANHED 15:33 → ANHICU 19:11 → ANH3MEDSUR 01-29 16:59
PROVIDERS: Nurse Practitioner; Admitting Provider Internal Medicine; Emergency Provider Emergency Medicine; PCP Family Medicine; Visit Provider Family Medicine
DX: E11.10 Type 2 diabetes mellitus with ketoacidosis without coma (principal); G25.81 Restless legs syndrome; F32.A Depression, unspecified; Z79.4 Long term (current) use of insulin; Z88.6 Allergy status to analgesic agent; Z91.018 Allergy to other foods
CPT/HCPCS: 36415; 36600; 51701; 80048; 80053; 81001; 82010; 82375; 82805; 82948; 83050; 83735; 84100; 84484; 85025; 85027; 93005; 96360; 96361; 99285; A9270; J1815; J3480; J7030

== ENCOUNTER 2022-02-10 10:30 | Inpatient (IN) | payer MEDICARE, OTHER, SELFPAY ==
[2022-02-10] VITALS (32 sets, daily range): BP systolic 94–156; BP diastolic 46–83; PULSE 82–117; RESP 14–26; TEMP 36.3–36.6; O2SAT 96–100; BMI 22.6
--- NOTE | ~2022-02-10 | US_ITS ---
EXAMINATION: US art doppler w press LE BI DATE: 02/14/2022 15:19 INDICATION: Paresthesias TECHNIQUE: Segmental pressures and plethysmographic and Doppler waveforms of the brachial and lower e xtremity arteries were obtained. COMPARISON: None. FINDINGS: Right and left brachial artery pressures of 93 mm Hg and 95 mm Hg, respectively, are concordant (norm al difference <= 30 mmHg). The right and left high-thigh pressure indices are 1.36 and 1.21, respecti vely (normal > 1.2). The right ankle-brachial index (SALLY) is 1.29 (normal >= 0.9-1). The right great toe-brachial index (T BI) is 0.92 (normal >= 0.6-0.8). The right lower extremity segmental pressure gradients are normal (n ormal gradients <= 20-30 mmHg between adjacent levels on the same leg or the same levels on the two l egs). Arterial waveforms are triphasic at the right common femoral, superficial femoral and popliteal arteries and biphasic at the right posterior tibial and dorsalis pedis arteries with brisk systolic upstrokes throughout. The left SALLY is 1.23. The left TBI is 0.76. The left lower extremity segmental pressure gradients are normal. Arterial waveforms are biphasic at the left common femoral artery and triphasic at the left superficial femoral, popliteal, posterior tibial and dorsalis pedis arteries with brisk systolic upst rokes throughout. IMPRESSION: 1. Normal SALLY's bilaterally. No significant occlusive disease. 2. Cardiac arrhythmia is present. Correlate with EKG. Reviewed, dictated and finalized at location B. MICS TECHNICIAN
--- NOTE | ~2022-02-10 | US_ITS ---
EXAMINATION: US venous doppler LE RT DATE: 02/12/2022 15:28 INDICATION: Right lower limb pain and swelling TECHNIQUE: Grayscale ultrasound images without and with compression and Doppler ultrasound images of the right lower extremity veins were obtained. COMPARISON: None. FINDINGS: Noncompressible thrombus throughout the visualized portions of right common femoral vein, profunda (d eep) femoral vein, femoral vein, popliteal vein, peroneal trunk, posterior tibial veins, peroneal vei ns and greater saphenous vein outflow. Small amount of residual flow seen in the right popliteal vein , the remaining thrombus appears occlusive. IMPRESSION: 1. Extensive deep venous thrombosis throughout the right lower limb. Findings were discussed with Wm Erazo, the nurse caring for the patient, at 3:25 PM. Reviewed, dictated and finalized at location A. MANUFACTURER IMPRESSION: 1. Extensive deep venous thrombosis throughout the right lower limb. Findings were discussed with Ashley Erazo, the nurse caring for the patient, at 3:25 PM .
[2022-02-10 10:39] LABS: Glucose Point of Care > 500 mg/dl (65-105)
[2022-02-10 11:07] LABS: Add Urine Microscopic? YES; Appearance Urine Clear (Clear); Bilirubin Urine Negative (Negative); Blood Urine Trace-Intact (Negative); Color Urine Light Yellow (Yellow); Glucose Urine UA 3+ mg/dL (Negative); Ketones Urine 3+ mg/dL (Negative); Leukocyte Esterase Ur Negative LEU/UL (Negative); Nitrate Urine Negative (Negative); Protein Urine Trace mg/dL (Negative); Specific Grav Ur 1.025 (1.001-1.035); Urobilinogen Urine 0.2 mg/dL (<2.0); pH Urine 5.5 (5.0-9.0)
[2022-02-10 11:13] LABS: Mucus Urine Rare /lpf; RBC Urine 0-2 /hpf (0-2); Squamous Epithelial Cell Urine Rare /hpf (Few); WBC Urine 0-3 /hpf
[2022-02-10 11:16] LABS: Basophils Absolute Auto 0.1 K/mm3 (0.0-0.1); Basophils Percent Auto 0.6 % (0.2-1.2); Eosinophils Percent Auto 0.3 % (0-4.4); Hematocrit 42.8 % (37.0-47.0); Hemoglobin 12.5 g/dL (12.0-15.0); Immature Granulocyte Absolute 0.11 K/mm3 (0.00-0.031); Immature Granulocyte Percent A 0.9 % (0-0.5); Lymphocytes Absolute Auto 1.46 K/mm3 (0.9-3.2); Lymphocytes Percent Auto 12.5 % (18.3-44.2); Mean Corpuscular HGB Conc 29.2 g/dl (32-36); Mean Corpuscular Hemoglobin 31.3 pg (26-34); Mean Corpuscular Volume 107.3 fl (80-100); Mean Platelet Volume 9.3 fl (7.4-10.4); Monocytes Absolute Auto 0.4 K/mm3 (0.1-0.6); Monocytes Percent Auto 3.7 % (2.6-8.5); Neutrophils Absolute Auto 9.6 K/mm3 (1.3-6.7); Platelet Count Result 361 k/mm3 (150-375); Red Blood Count 3.99 M/mm3 (4.2-5.4); Red Cell Distribution Width 14.5 % (11.5-14.5); White Blood Count 11.7 K/mm3 (4.5-10.0)
[2022-02-10 11:28] LABS: Anisocytosis 1+ (NORMAL); Macrocytosis 1+ (NORMAL); Platelet Estimate Adequate (Adequate); Tear Drop Cells 1+ (NORMAL)
[2022-02-10 11:29] LABS: Schistocytes None Seen (NORMAL)
[2022-02-10 11:40] LABS: Alanine Aminotransferase 20 U/L (6-35); Albumin Level 4.7 g/dL (3.5-5.1); Alkaline Phosphatase 178 U/L (38-126); Aspartate Amino Transferase 29 U/L (14-36); Bilirubin,Total 0.5 mg/dL (0.2-1.3); Blood Urea Nitrogen 28 mg/dL (7-17); Calcium 10.7 mg/dL (8.4-10.2); Carbon Dioxide < 5 mmol/L (22-30); Chloride 105 mmol/L (98-107); Estimated CRCL calculation 41 ml/min; Estimated Glomerular Filt Rate > 60; Glucose 703 mg/dL (65-110); Magnesium 2.4 mg/dL (1.6-2.3); Potassium 5.9 mmol/L (3.4-5.0); Sodium 138 mmol/L (137-145)
--- NOTE | 2022-02-10 11:43 | ED.GENADULT ---
HPI - General Adult General Chief complaint: Nausea/Vomiting/Diarrhea Stated complaint: vomiting Time Seen by Provider: 02/10/22 11:29 History of Present Illness HPI narrative: 71-year-old female who is well-known to staff and has recurrent visits for diabetic ketoacidosis presents to our department via EMS for evaluation of abdominal pain, vomiting and high blood sugar. Patient admits to noncompliance with her diabetic medication. Pain is constant and nonradiating. Related Data Home Medications Medication Instructions Recorded Confirmed pramipexole 1.5 mg tablet 3 mg PO HS 12/22/21 01/28/22 insulin aspart U-100 100 unit/mL 1 sliding scale dose subcut 01/04/22 01/28/22 subcutaneous solution (Novolog TIDWMEAL U-100 Insulin aspart) insulin aspart U-100 100 unit/mL 2 unit subcut TIDWMEAL 01/28/22 01/28/22 subcutaneous solution (Novolog U-100 Insulin aspart) insulin glargine 100 unit/mL 35 unit subcut HS 01/28/22 01/28/22 subcutaneous solution (Lantus U-100 Insulin) Allergies Allergy/AdvReac Type Severity Reaction Status Date / Time banana Allergy Severe SEVERE Verified 02/10/22 08:01 HIVES acetaminophen [From Tylenol] AdvReac Intermediate Nausea and Verified 02/10/22 08:01 Vomiting aspirin AdvReac Intermediate Nausea and Verified 02/10/22 08:01 Vomiting fluoxetine [From Prozac] AdvReac Hallucinati Verified 02/10/22 08:01 ng Review of Systems Review of Systems: CONSTITUTIONAL: Denies fever, chills, or sweats. EYES: Denies visual changes, redness, or discharge. ENT: Denies rhinorrhea, congestion, sore throat, or otalgia. CARDIOVASCULAR: Denies chest pain, palpitations, or edema. RESPIRATORY: Denies cough or dyspnea. GASTROINTESTINAL: Denies abdominal pain, nausea, vomiting, or diarrhea. GENITOURINARY: Denies dysuria or hematuria. SKIN: Denies rash or itching. MUSCULOSKELETAL: Denies back pain, joint pain, or myalgia. NEUROLOGIC: Denies headache, numbness, or weakness. PSYCHIATRIC: Denies anxiety or depression. [facility] Past Medical History Medical History Back pain Dehydration Depression Depression Diabetic peripheral neuropathy Fibromyalgia Hyperglycemia Hypothyroidism Memory change Ovarian cancer At the age of 33, status post hysterectomy. Patient states that half an ovary was left during surgery. She required no further treatment. Pneumonia due to COVID-19 virus (~09/2020) Restless leg syndrome Shingles Type 2 diabetes mellitus Hemoglobin A1c was > 14% August 2021 C-peptide 0.63. Surgical History Surgical History History of tonsillectomy (~1970) History of total hysterectomy with bilateral salpingo-oophorectomy (BSO) (~1983) History of tubal ligation (~1983) Family History Family History Grandparent Family history of premature coronary heart disease, Onset Age: 64 Father Family history of respiratory disorder, Onset Age: 87 Family history of cardiovascular disease Patient's father is Family history of Alzheimer's disease Cerebrovascular accident Mother Family history of primary malignant neoplasm of liver, Onset Age: 64 Family history of malignant neoplasm Patient's mother is , Onset Age: 64 Family history of malignant neoplasm of breast in first degree relative Sibling Heart attack Sibling Heart attack Social History Social History Social History: The patient is . She lives in her own home in [place], [place] with her daughter Jose. She does not work. She has 2 daughters, and designates her daughter Jose Posey, as her surrogate decision maker. She is a lifelong nonsmoker. She drinks perhaps 4-12 alcoholic beverages a week. No drug use. Code status previously she had been a DNR and
[2022-02-10] MEDS: LACTATED RINGERS 1,000 ML 999 ML IV CONT (11:45)
[2022-02-10] MEDS: INSULIN HUMAN REGULAR (*BKC) 100 UNITS in SODIUM CHLORIDE 0.9% IV 99 ML 12.86 UNITS IV CONT (12:42)
[2022-02-10 12:47] LABS: Glucose Point of Care > 500 mg/dl (65-105)
--- NOTE | 2022-02-10 12:51 | PM.IMHP ---
H&P: HPI History of Present Illness Date/Time: 02/10/22 12:51 Chief Complaint: Nausea vomiting diarrhea Narrative: This is a 71-year-old female patient who has had DKA multiple times. The patient stated that she for got to take her insulin the last 2 days. Her last discharge was 01/31/2022. The patient stated that she went to a democrat last night and felt fine. However today she was vomiting and had a high blood sugar. She has been noncompliant with her diabetic medication. Her white count is 11.7. On vBGs her pH is 6.913, pCO2 is 14.8. PO2 was 64.7. Bicarb is 2.9. Her potassium is 5.9 her blood sugar was 703. Her beta hydroxybutyrate acid acetate was 16. Anion gap could not be analyzed as it is outside of the analyzer limits. The patient was given sodium bicarb and started on lactated Ringer's. She was started on an insulin drip. The dining services manager was notified and agreed to accept the patient and ICU. The patient is being admitted to inpatient status on the date of service of 02/10/2022 Review of Systems Review of Systems: See HPI All systems reviewed & are unremarkable except as noted in HPI and below Constitutional: Constitutional: Reports as per HPI and Reports no additional constitutional complaints Eyes: Eyes: Reports as per HPI and Reports no additional eye complaints ENT: Reports system reviewed and no additional complaints, except as documented and Reports Normal hearing present Cardiovascular: Cardiovascular: Reports no additional cardiovascular complaints Respiratory: Respiratory: Reports no additional respiratory complaints and Reports no additional respiratory complaints Gastrointestinal: Gastrointestinal: Reports as per HPI and Reports no additional gastrointestinal complaints Musculoskeletal: Musculoskeletal: Reports no additional musculoskeletal complaints Integumentary/Breasts: Skin/Breast: Reports system reviewed and no additional complaints, except as docu and Reports as per HPI Neurologic: Reports system reviewed and no additional complaints, except as documented, Reports as per HPI and Reports Normal hearing present Psychiatric: Psychiatric: Reports no additional psychiatric complaints and Reports as per HPI Endocrine: Endocrine: Reports no additional endocrine complaints Hematologic/Lymphatic: Hematologic/Lymphatic: Reports no additional hematologic/lymphatic complaints Allergic/Immunologic: Allergic/Immunologic: Reports no additional allergic/immunologic complaints [facility] Past Medical History Medical History (Updated 02/10/22 @ 15:26 by Lesley Benton NP) Back pain Dehydration Depression Depression Diabetic peripheral neuropathy DKA (diabetic ketoacidosis) Fibromyalgia Hyperglycemia Hypothyroidism Memory change Ovarian cancer At the age of 33, status post hysterectomy. Patient states that half an ovary was left during surgery. She required no further treatment. Pneumonia due to COVID-19 virus (~09/2020) Restless leg syndrome Shingles Type 2 diabetes mellitus Hemoglobin A1c was > 14% August 2021 C-peptide 0.63. Surgical History Surgical History History of tonsillectomy (~1970) History of total hysterectomy with bilateral salpingo-oophorectomy (BSO) (~1983) History of tubal ligation (~1983) Family History Family History Grandparent Family history of premature coronary heart disease, Onset Age: 64 Father Family history of respiratory disorder, Onset Age: 87 Family history of cardiovascular disease Patient's father is Family history of Alzheimer's disease Cerebrovascular accident Mother Family history of primary malignant neoplasm of liver, Onset Age: 64 Family history of malignant neoplasm Patient's mother is , Onset Age: 64 Family history of malignant neoplasm of breast in first degree relative Sibling Heart attack Sibling
[2022-02-10 13:09] LABS: Influenza A QL RT-PCR Negative (Negative); Influenza B QL RT-PCR Negative (Negative); SARS-CoV-2 RNA PCR Negative
[2022-02-10 14:11] LABS: Glucose Point of Care > 500 mg/dl (65-105)
[2022-02-10 14:39] LABS: Glucose 611 mg/dL (65-110)
[2022-02-10 15:11] LABS: HCO3 VBG 2.9 mEq/l (24.0-30.0); PCO2 VBG 14.8 mmHg (42.0-48.0); PO2 VBG 64.7 mmHg (35.0-45.0); pH VBG 6.913 (7.300-7.400)
--- NOTE | 2022-02-10 15:15 | ADMGEN ---
This patient, Karly Leslie, was admitted to Intensive Care Unit-4. Patient/family oriented to hospital policies and general routines including ID bracelet, bed and alarms, visiting hours, pain management, procedures, bathroom and other care routines, personal items, smoking policy, room service/diet, and visiting hours. Information on how to activate the Rapid Response Team has been discussed. Patient/Family are encouraged to report perceived risks to care and to ask questions if they do not understand what they are told or what they should do.
--- NOTE | 2022-02-10 15:26 | PC.NURSE ---
Pt. given 1L of NS by EMS fishing captain
[2022-02-10 15:34] LABS: Glucose Point of Care > 500 mg/dl (65-105)
[2022-02-10] MEDS: SODIUM BICARBONATE 8.4% 50 MEQ/50 ML SYRINGE IV PUSH (15:34)
[2022-02-10] MEDS: SODIUM CHLORIDE 0.9% IV 1,000 ML 150 ML IV CONT (15:35)
[2022-02-10 16:33] LABS: Glucose Point of Care 422 mg/dl (65-105)
[2022-02-10 16:42] LABS: Blood Urea Nitrogen 28 mg/dL (7-17); Calcium 10.8 mg/dL (8.4-10.2); Carbon Dioxide < 5 mmol/L (22-30); Chloride 107 mmol/L (98-107); Estimated CRCL calculation 37 ml/min; Estimated Glomerular Filt Rate > 60; Glucose 451 mg/dL (65-110); Magnesium 2.5 mg/dL (1.6-2.3); Phosphorus 4.4 mg/dL (2.5-4.5); Potassium 4.8 mmol/L (3.4-5.0); Sodium 142 mmol/L (137-145)
[2022-02-10 16:58] LABS: Hemoglobin A1C > 14.0 % (<5.7)
[2022-02-10 17:35] LABS: Glucose Point of Care 357 mg/dl (65-105)
[2022-02-10] MEDS: INSULIN HUMAN REGULAR (*BKC) 100 UNITS in SODIUM CHLORIDE 0.9% IV 99 ML 17.8 UNITS IV CONT (17:55)
[2022-02-10 19:04] LABS: Glucose Point of Care 213 mg/dl (65-105)
[2022-02-10] MEDS: KCL 20 MEQ/D5/0.45% SOD CHL 1,000 ML 150 ML IV CONT (19:04)
[2022-02-10 19:58] LABS: Anion Gap 22 mmol/L (8-16); Blood Urea Nitrogen 28 mg/dL (7-17); Calcium 10.4 mg/dL (8.4-10.2); Carbon Dioxide 8 mmol/L (22-30); Chloride 114 mmol/L (98-107); Estimated CRCL calculation 46 ml/min; Estimated Glomerular Filt Rate > 60; Glucose 276 mg/dL (65-110); Potassium 4.5 mmol/L (3.4-5.0); Sodium 144 mmol/L (137-145)
[2022-02-10] MEDS: INSULIN HUMAN REGULAR (*BKC) 100 UNITS in SODIUM CHLORIDE 0.9% IV 99 ML 12.6 UNITS IV CONT (20:05)
[2022-02-10 20:11] LABS: Glucose Point of Care 218 mg/dl (65-105)
[2022-02-10 21:27] LABS: Glucose Point of Care 172 mg/dl (65-105)
[2022-02-10 23:13] LABS: Glucose Point of Care 150 mg/dl (65-105)
[2022-02-10 23:13] LABS: Glucose Point of Care 174 mg/dl (65-105)
[2022-02-10 23:58] LABS: Anion Gap 6 mmol/L (8-16); Blood Urea Nitrogen 26 mg/dL (7-17); Carbon Dioxide 18 mmol/L (22-30); Chloride 113 mmol/L (98-107); Estimated CRCL calculation 63 ml/min; Estimated Glomerular Filt Rate > 60; Glucose 134 mg/dL (65-110); Sodium 137 mmol/L (137-145)
[2022-02-11] VITALS (9 sets, daily range): BP systolic 86–147; BP diastolic 45–67; PULSE 74–88; RESP 14–19; TEMP 36.6–37.1; O2SAT 97–100
[2022-02-11 00:12] LABS: Glucose Point of Care 134 mg/dl (65-105)
[2022-02-11] MEDS: KCL 20 MEQ/D5/0.45% SOD CHL 1,000 ML 150 ML IV CONT (00:56)
[2022-02-11 01:01] LABS: Glucose Point of Care 100 mg/dl (65-105)
[2022-02-11 02:02] LABS: Add Urine Microscopic? YES; Appearance Urine Clear (Clear); Bilirubin Urine 2+ (Negative); Blood Urine Negative (Negative); Color Urine Light Yellow (Yellow); Glucose Urine UA 2+ mg/dL (Negative); Ketones Urine 3+ mg/dL (Negative); Leukocyte Esterase Ur Negative LEU/UL (NEGATIVE); Nitrate Urine Negative (Negative); Protein Urine 1+ mg/dL (Negative); Specific Grav Ur >= 1.030 (1.001-1.035); Urobilinogen Urine 0.2 mg/dL (<2.0)
[2022-02-11 02:32] LABS: Glucose Point of Care 80 mg/dl (65-105)
[2022-02-11 03:21] LABS: Glucose Point of Care 75 mg/dl (65-105)
[2022-02-11 03:54] LABS: Basophils Percent Auto 0.2 % (0.2-1.2); Eosinophils Percent Auto 0.2 % (0-4.4); Hematocrit 35.8 % (37.0-47.0); Hemoglobin 11.5 g/dL (12.0-15.0); Immature Granulocyte Absolute 0.04 K/mm3 (0.00-0.031); Immature Granulocyte Percent A 0.4 % (0-0.5); Lymphocytes Absolute Auto 1.66 K/mm3 (0.9-3.2); Lymphocytes Percent Auto 17.8 % (18.3-44.2); Mean Corpuscular HGB Conc 32.1 g/dl (32-36); Mean Corpuscular Hemoglobin 31.9 pg (26-34); Mean Corpuscular Volume 99.2 fl (80-100); Mean Platelet Volume 8.9 fl (7.4-10.4); Monocytes Percent Auto 10.2 % (2.6-8.5); Neutrophils Absolute Auto 6.6 K/mm3 (1.3-6.7); Neutrophils Percent Auto 71.2 % (45.5-73.1); Platelet Count Result 184 k/mm3 (150-375); Red Blood Count 3.61 M/mm3 (4.2-5.4); Red Cell Distribution Width 14.6 % (11.5-14.5); White Blood Count 9.3 K/mm3 (4.5-10.0)
[2022-02-11 03:59] LABS: Lactic Acid Reflex 1.1 mmol/L (0.7-2.0)
[2022-02-11 04:01] LABS: Anion Gap 11 mmol/L (8-16); Blood Urea Nitrogen 25 mg/dL (7-17); Carbon Dioxide 18 mmol/L (22-30); Chloride 113 mmol/L (98-107); Estimated CRCL calculation 63 ml/min; Estimated Glomerular Filt Rate > 60; Glucose 97 mg/dL (65-110); Sodium 142 mmol/L (137-145)
[2022-02-11 07:45] LABS: Anion Gap 13 mmol/L (8-16); Blood Urea Nitrogen 24 mg/dL (7-17); Calcium 9.7 mg/dL (8.4-10.2); Carbon Dioxide 15 mmol/L (22-30); Chloride 111 mmol/L (98-107); Estimated CRCL calculation 63 ml/min; Estimated Glomerular Filt Rate > 60; Glucose 238 mg/dL (65-110); Potassium 4.6 mmol/L (3.4-5.0); Sodium 139 mmol/L (137-145)
[2022-02-11] MEDS: INSULIN ASPART (*BKC) 100 UNITS/ML SUB-Q ×5 (09:32→17:05)
[2022-02-11] MEDS: INSULIN GLARGINE (*BKC) 100 UNITS/ML 35 UNITS SUB-Q (09:34)
[2022-02-11] MEDS: ENOXAPARIN 40 MG/0.4 ML SYRINGE SUB-Q (09:35)
[2022-02-11 11:12] LABS: Anion Gap 24 mmol/L (8-16); Blood Urea Nitrogen 22 mg/dL (7-17); Calcium 10.3 mg/dL (8.4-10.2); Carbon Dioxide 7 mmol/L (22-30); Chloride 109 mmol/L (98-107); Estimated CRCL calculation 53 ml/min; Estimated Glomerular Filt Rate > 60; Glucose 374 mg/dL (65-110); Potassium 3.9 mmol/L (3.4-5.0); Sodium 140 mmol/L (137-145)
--- NOTE | 2022-02-11 11:19 | PCFNICU ---
ICU Rounding Note: Pt current nutrition is DBCC. Last recorded weight is 55.2 kg. Labs Reviewed:BUN 24, Cr 0.5,Glu 238, Hct 35.8,Hgb 11.5, HbA1c>14% Meds Noted:Novolog, Lantus Skin: WNL Additional Notes: Patient in with DKA. Diet order: DBCC, tolerating diet. Agree with diet orders. Plans for downgrade to medical floor. No further nutritional needs at this time. Following daily in ICU rounds.
--- NOTE | 2022-02-11 11:25 | WPDCNINT ---
Assessment and Plan Assessment and plan (1) DKA (diabetic ketoacidosis): Qualifiers: Diabetes mellitus complication detail: without coma Diabetes mellitus type: type 1 Qualified Code(s): E10.10 - Type 1 diabetes mellitus with ketoacidosis without coma Code(s): E11.10 - Type 2 diabetes mellitus with ketoacidosis without coma Status: Acute Assessment and Plan: Patient has been noncompliant and has recurrent multiple admissions almost every month for diabetic ketoacidosis. -patient presented after she did not take her long-acting insulin for 2 days, implant of nausea, vomiting and elevated blood sugars. Was found to be in DKA with elevated anion gap and beta hydroxybutyrate. Her pH was 6.91 so the ER physician gave her an amp of bicarb. Patient was given IV fluids and started on insulin drip per DKA protocol -will transition to to long-acting insulin and sliding scale insulin with Accu-Cheks -continue diabetic diet -her hemoglobin A1c is > 14.0 (2) Hyperkalemia: Code(s): E87.5 - Hyperkalemia Status: Acute Assessment and Plan: Resolved likely acidosis due to diabetic ketoacidosis Plan DVT prophylaxis: Lovenox Stress ulcer prophylaxis: Not indicated Nutrition: Diabetic diet Code Status: Full code Critical Care Time Spent: 44 minutes Due to a high probability of clinically significant, life threatening deterioration, the patient required my highest level of preparedness to intervene emergently and I personally spent this critical care time directly and personally managing the patient. This critical care time included obtaining a history; examining the patient; pulse oximetry; ordering and review of studies; arranging urgent treatment with development of a management plan; evaluation of patient's response to treatment; frequent reassessment; and discussions with other providers. It was exclusive of separately billable procedures and treating other patients and teaching time. Please see Assessment and Plan section and the rest of the note for further information on patient assessment and treatment This dictation may have been done utilizing a voice recognition system. Attempts have been made to correct errors. However, there may be uncorrected grammatical, spelling, and recognitions errors present. [employer] Cutter Consult Note Consult date: 02/11/22 Reason for consult: Diabetic ketoacidosis HPI: Karly Leslie is a 71 year old female past medical history of diabetes, multiple admissions for DKA, depression, diabetic peripheral neuropathy, hypothyroidism, ovarian cancer at age of 33, pneumonia due to COVID in September 2020, restless leg syndrome, history of shingles presented to the ED on 01/28/2022 with complaints of generalized weakness, hyperglycemia. She has been noncompliant with diabetic medications under not take home a long-acting insulin for 2 days. Patient did vomiting and elevated blood sugars on the day of admission. Presented the ED where she was found to be in diabetic ketoacidosis had increased anion gap, elevated beta hydroxybutyrate and blood sugar of 703. A pH was 6.91, she was given an amp of bicarb. Given IV fluids 2 L and started on insulin drip. Transferred to the ICU for further management. 02/11/2022: Patient seen and examined the ICU, is awake, alert, denies any nausea, vomiting, abdominal pain, chest pain, shortness of breath. Patient stated that she feels better, and wants to eat. Hemodynamically stable, afebrile with adequate urine output Review of Systems Review of Systems: All systems reviewed & are unremarkable except as noted in HPI and below PMFSH Past Medical History Medical History (Updated 02/10/22 @ 15:26 by Lesley Benton NP) Back pain Dehydration Depression Depression Diabetic peripheral neuropathy DKA (diabetic ketoacidosis) Fibromyalgia Hyperglycemia Hypothyroidism Memory change Ovarian cancer At the age of 33, status post hysterect
[2022-02-11 11:32] LABS: Glucose Point of Care 364 mg/dl (65-105)
--- NOTE | 2022-02-11 11:51 | PC.NURSE ---
This patient, Karly Leslie, was transferred to [facility] on 02/11/22 at 1152. Personal belongings sent with patient. Report given to accepting unit. Appropriate documentation sent with patient.
[2022-02-11 16:49] LABS: Glucose Point of Care 188 mg/dl (65-105)
[2022-02-11] MEDS: PRAMIPEXOLE 1 MG TABLET 3 MG PO (21:15)
[2022-02-11 22:11] LABS: Glucose Point of Care 183 mg/dl (65-105)
[2022-02-12 06:00] VITALS: BP 122/64; PULSE 75; RESP 16; TEMP 36.3; O2SAT 96
[2022-02-12 08:03] LABS: Glucose Point of Care 118 mg/dl (65-105)
[2022-02-12] MEDS: ENOXAPARIN 40 MG/0.4 ML SYRINGE SUB-Q (08:37)
[2022-02-12] MEDS: INSULIN GLARGINE (*BKC) 100 UNITS/ML 35 UNITS SUB-Q (08:38)
[2022-02-12] MEDS: INSULIN ASPART (*BKC) 100 UNITS/ML SUB-Q ×4 (08:38→17:31)
[2022-02-12 08:45] LABS: Basophils Percent Auto 0.3 % (0.2-1.2); Eosinophils Absolute Auto 0.1 K/mm3 (0-0.3); Eosinophils Percent Auto 0.7 % (0-4.4); Hematocrit 34.1 % (37.0-47.0); Hemoglobin 10.9 g/dL (12.0-15.0); Immature Granulocyte Absolute 0.02 K/mm3 (0.00-0.031); Immature Granulocyte Percent A 0.3 % (0-0.5); Lymphocytes Absolute Auto 1.51 K/mm3 (0.9-3.2); Lymphocytes Percent Auto 21.3 % (18.3-44.2); Mean Corpuscular Hemoglobin 30.5 pg (26-34); Mean Corpuscular Volume 95.5 fl (80-100); Monocytes Absolute Auto 0.6 K/mm3 (0.1-0.6); Monocytes Percent Auto 7.8 % (2.6-8.5); Neutrophils Absolute Auto 4.9 K/mm3 (1.3-6.7); Neutrophils Percent Auto 69.6 % (45.5-73.1); Platelet Count Result 142 k/mm3 (150-375); Red Blood Count 3.57 M/mm3 (4.2-5.4); Red Cell Distribution Width 15.1 % (11.5-14.5); White Blood Count 7.1 K/mm3 (4.5-10.0)
[2022-02-12 09:00] LABS: Alanine Aminotransferase 15 U/L (6-35); Albumin Level 3.6 g/dL (3.5-5.1); Alkaline Phosphatase 112 U/L (38-126); Anion Gap 5 mmol/L (8-16); Aspartate Amino Transferase 21 U/L (14-36); Bilirubin,Total 0.5 mg/dL (0.2-1.3); Blood Urea Nitrogen 20 mg/dL (7-17); Calcium 10.3 mg/dL (8.4-10.2); Carbon Dioxide 21 mmol/L (22-30); Chloride 104 mmol/L (98-107); Estimated CRCL calculation 63 ml/min; Estimated Glomerular Filt Rate > 60; Glucose 108 mg/dL (65-110); Magnesium 2.1 mg/dL (1.6-2.3); Potassium 3.8 mmol/L (3.4-5.0); Sodium 130 mmol/L (137-145)
--- NOTE | 2022-02-12 11:46 | PM.IMPN ---
Progress Note: A&P Assessment and Plan (1) DKA (diabetic ketoacidosis): Qualifiers: Diabetes mellitus complication detail: without coma Diabetes mellitus type: type 1 Qualified Code(s): E10.10 - Type 1 diabetes mellitus with ketoacidosis without coma Code(s): E11.10 - Type 2 diabetes mellitus with ketoacidosis without coma Status: Acute Assessment and Plan: -the patient has had multiple admissions for DKA. -the patient is known to be noncompliant. The patient stated has been 2 days since she took her insulin. -her blood sugar was 703 on arrival -on her ABGs patient's pH was 7.28 with CO2 of 21.6. PO2 was 101.9. Bicarb was 9.9. On her VBG her pH was 6.913 and CO2 was 14.8 and her bicarb was 2.9. -the patient was started on insulin drip in the emergency room. -DKA protocol has been initiated. -the patient was given an amp of bicarb in the emergency room. -last A1c was greater than 14 on 01/17/2022. next has been switched to Lantus and lispro Continue to monitor Accu-Cheks and adjust insulin Discussed compliance with insulin at home to prevent recurrent admissions for DKA No signs of infection UA is negative WBC count is normal no respiratory symptoms (2) Hyperkalemia: Code(s): E87.5 - Hyperkalemia Status: Acute Assessment and Plan: recheck and monitor labs were reviewed today Plan mild anemia with no signs of bleeding Mild hyponatremia Restless leg syndrome on pramipexole Anxiety depression cognitive impairment diabetic peripheral neuropathy Hypothyroidism DVT prophylaxis Lovenox Code status full code Disposition: Will have PT OT see her. Lives at home by herself. Her daughter is coming from [place]. She does have primary care [place] recently Established with Subjective Date/time seen: 02/12/22 11:46 Interval history: HPI:This is a 71-year-old female patient who has had DKA multiple times.? The patient stated that she for got to take her insulin the last 2 days.? Her last discharge was 01/31/2022.? The patient stated that she went to a alliance party last night and felt fine.? However today she was vomiting and had a high blood sugar.? She has been noncompliant with her diabetic medication.? Her white count is 11.7.? On vBGs her pH is 6.913, pCO2 is 14.8.? PO2 was 64.7.? Bicarb is 2.9.? Her potassium is 5.9 her blood sugar was 703.? Her beta hydroxybutyrate acid acetate was 16.? Anion gap could not be analyzed as it is outside of the analyzer limits.? The patient was given sodium bicarb and started on lactated Ringer's.? She was started on an insulin drip.? The edger hand was notified and agreed to accept the patient and ICU.? The patient is being admitted to inpatient status on the date of service of 02/10/2022 02/12/2022 doing well. On Lantus and lispro. States forgot to take her insulin. She lives by herself. Denies any abdominal pain nausea vomiting. Review of Systems Review of Systems: All systems reviewed & are unremarkable except as noted in HPI and below Exam Narrative: GENERAL: Well-appearing, well-nourished, and in no acute distress. HEAD: Normocephalic, atraumatic. EYES: PERRLA and EOMI. ENT: Nares clear, no rhinorrhea or epistaxis.? Mucous membranes moist. NECK: Supple. CHEST: Clear to auscultation.? No respiratory distress.? HEART: Regular rate and regular rhythm.? No murmur heard.? Normal peripheral pulses. ABDOMEN: Soft, nontender, nondistended, normal active bowel sounds. EXTREMITIES: Normal range of motion.? No edema. SKIN: Warm, dry, no rash. NEURO: No focal deficits.? Alert and oriented x3. PSYCH: Normal mood and affect. Objective Data Vital Signs Vital Signs: Vital Signs - 24 hr 02/11/22 12:08 02/11/22 14:00 02/11/22 20:00 Temperature 98.3 F 98.3 F Pulse Rate 82 86 Respiratory Rate 16 16 Blood Pressure 129/58 L 147/67 H Pulse Oximetry 100 99 Oxygen Delivery Room Air 02/11/22 22:00 02/12/22 06:00 Temperature 98.8 F 97.4 F L
[2022-02-12 12:11] LABS: Glucose Point of Care 201 mg/dl (65-105)
[2022-02-12 14:00] VITALS: BP 118/65; PULSE 76; RESP 16; TEMP 36.3; O2SAT 98
[2022-02-12] MEDS: ACETAMINOPHEN 325 MG TABLET 650 MG PO (14:06)
--- NOTE | 2022-02-12 14:44 | PC.NURSE ---
to ultrasound per stretcher
[2022-02-12] MEDS: ENOXAPARIN 60 MG/0.6 ML SYRINGE 55 MG SUB-Q (16:42)
[2022-02-12] MEDS: MORPHINE SULFATE (*CRX) 2 MG/ML INJ IV PUSH (16:43)
[2022-02-12 17:35] LABS: Glucose Point of Care 166 mg/dl (65-105)
[2022-02-12] MEDS: PRAMIPEXOLE 1 MG TABLET 3 MG PO (21:18)
[2022-02-12 22:00] VITALS: BP 108/69; PULSE 77; RESP 18; TEMP 36.9; O2SAT 100
[2022-02-12 22:38] LABS: Glucose Point of Care 229 mg/dl (65-105)
[2022-02-13] MEDS: ENOXAPARIN 60 MG/0.6 ML SYRINGE 55 MG SUB-Q ×2 (04:56→18:15)
[2022-02-13 06:00] VITALS: BP 131/75; PULSE 71; RESP 16; TEMP 36.8; O2SAT 100
[2022-02-13 07:04] LABS: Basophils Percent Auto 0.4 % (0.2-1.2); Eosinophils Percent Auto 0.6 % (0-4.4); Hematocrit 32.6 % (37.0-47.0); Hemoglobin 10.1 g/dL (12.0-15.0); Immature Granulocyte Absolute 0.02 K/mm3 (0.00-0.031); Immature Granulocyte Percent A 0.4 % (0-0.5); Lymphocytes Absolute Auto 1.15 K/mm3 (0.9-3.2); Lymphocytes Percent Auto 24.8 % (18.3-44.2); Mean Corpuscular Hemoglobin 30.9 pg (26-34); Mean Corpuscular Volume 99.7 fl (80-100); Mean Platelet Volume 9.5 fl (7.4-10.4); Monocytes Absolute Auto 0.5 K/mm3 (0.1-0.6); Monocytes Percent Auto 9.7 % (2.6-8.5); Neutrophils Percent Auto 64.1 % (45.5-73.1); Platelet Count Result 117 k/mm3 (150-375); Red Blood Count 3.27 M/mm3 (4.2-5.4); Red Cell Distribution Width 14.6 % (11.5-14.5); White Blood Count 4.6 K/mm3 (4.5-10.0)
[2022-02-13 07:23] LABS: Alanine Aminotransferase 14 U/L (6-35); Albumin Level 3.3 g/dL (3.5-5.1); Alkaline Phosphatase 108 U/L (38-126); Anion Gap 8 mmol/L (8-16); Aspartate Amino Transferase 17 U/L (14-36); Bilirubin,Total 0.5 mg/dL (0.2-1.3); Blood Urea Nitrogen 15 mg/dL (7-17); Calcium 9.5 mg/dL (8.4-10.2); Carbon Dioxide 20 mmol/L (22-30); Chloride 103 mmol/L (98-107); Estimated CRCL calculation 76 ml/min; Estimated Glomerular Filt Rate > 60; Glucose 135 mg/dL (65-110); Potassium 3.5 mmol/L (3.4-5.0); Sodium 131 mmol/L (137-145)
[2022-02-13] MEDS: INSULIN ASPART (*BKC) 100 UNITS/ML SUB-Q ×2 (08:41→12:26)
[2022-02-13] MEDS: INSULIN GLARGINE (*BKC) 100 UNITS/ML 35 UNITS SUB-Q (08:41)
[2022-02-13 08:43] LABS: Glucose Point of Care 121 mg/dl (65-105)
[2022-02-13 12:32] LABS: Glucose Point of Care 118 mg/dl (65-105)
[2022-02-13] MEDS: MORPHINE SULFATE (*CRX) 2 MG/ML INJ IV PUSH (12:41)
--- NOTE | 2022-02-13 13:14 | PM.IMPN ---
Progress Note: A&P Assessment and Plan (1) DKA (diabetic ketoacidosis): Qualifiers: Diabetes mellitus complication detail: without coma Diabetes mellitus type: type 1 Qualified Code(s): E10.10 - Type 1 diabetes mellitus with ketoacidosis without coma Code(s): E11.10 - Type 2 diabetes mellitus with ketoacidosis without coma Status: Acute Assessment and Plan: Patient has been noncompliant and has recurrent multiple admissions almost every month for diabetic ketoacidosis. -patient presented after she did not take her long-acting insulin for 2 days, implant of nausea, vomiting and elevated blood sugars. Was found to be in DKA with elevated anion gap and beta hydroxybutyrate. Her pH was 6.91 so the ER physician gave her an amp of bicarb. Patient was given IV fluids and started on insulin drip per DKA protocol -will transition to to long-acting insulin and sliding scale insulin with Accu-Cheks -continue diabetic diet -her hemoglobin A1c is > 14.0 Continue to monitor Accu-Cheks Blood sugar at goal. Continue current insulin dosing (2) Hyperkalemia: Code(s): E87.5 - Hyperkalemia Status: Acute Assessment and Plan: Resolved likely acidosis due to diabetic ketoacidosis (3) DVT (deep venous thrombosis): Code(s): I82.409 - Acute embolism and thrombosis of unspecified deep veins of unspecified lower extremity Status: Acute Assessment and Plan: extensive DVT on right lower extremity. Started on Lovenox as she is tolerating well. Will check for Eliquis versus Xarelto at discharge Plan DVT prophylaxis: Lovenox Stress ulcer prophylaxis: Not indicated Nutrition: Diabetic diet Code Status: Full code Subjective Date/time seen: 02/13/22 13:14 Interval history: HPI:This is a 71-year-old female patient who has had DKA multiple times.? The patient stated that she for got to take her insulin the last 2 days.? Her last discharge was 01/31/2022.? The patient stated that she went to a green party last night and felt fine.? However today she was vomiting and had a high blood sugar.? She has been noncompliant with her diabetic medication.? Her white count is 11.7.? On vBGs her pH is 6.913, pCO2 is 14.8.? PO2 was 64.7.? Bicarb is 2.9.? Her potassium is 5.9 her blood sugar was 703.? Her beta hydroxybutyrate acid acetate was 16.? Anion gap could not be analyzed as it is outside of the analyzer limits.? The patient was given sodium bicarb and started on lactated Ringer's.? She was started on an insulin drip.? The caramel cutter hand was notified and agreed to accept the patient and ICU.? The patient is being admitted to inpatient status on the date of service of 02/10/2022 02/12/2022 doing well. On Lantus and lispro. States forgot to take her insulin. She lives by herself. Denies any abdominal pain nausea vomiting. 02/13/2022: Noted asymmetric leg swelling. Venous duplex came back positive for DVT. Started on Lovenox. Complains of pain in her leg. Denies any chest pain or shortness of breath. Discussed the finding with the patient today Review of Systems Review of Systems: All systems reviewed & are unremarkable except as noted in HPI and below Exam Narrative: General: Pleasant female in no acute distress HEENT:? Pupils equal and reactive, sclera is clear Neck:? Supple, no lymphadenopathy Respiratory:? Clear to auscultation bilaterally, no wheezing or crackles Cardiac:? S1-S2 normal, regular rate and rhythm Abdomen:? Soft, nontender, nondistended, normoactive bowel sounds Extremities:? right leg edematous, palpable pedal pulses Neuro:, patient is awake, alert, oriented, nonfocal Skin:? No lesions noted, vomiting dry Psych:? normal mood Objective Data Vital Signs Vital Signs: Vital Signs - 24 hr 02/12/22 14:00 02/12/22 22:00 02/12/22 20:00 Temperature 97.3 F L 98.5 F Pulse Rate 76 77 Respiratory Rate 16 18 Blood Pressure 118/65 108/69 Pulse Oximetry 98 100 Oxygen D
[2022-02-13 14:00] VITALS: BP 105/57; PULSE 76; RESP 16; TEMP 36.3; O2SAT 99
[2022-02-13 16:34] LABS: Glucose Point of Care 83 mg/dl (65-105)
[2022-02-13] MEDS: PRAMIPEXOLE 1 MG TABLET 3 MG PO (21:10)
[2022-02-13 21:27] VITALS: BP 106/66; PULSE 81; RESP 16; TEMP 36.5; O2SAT 98
[2022-02-14] MEDS: ENOXAPARIN 60 MG/0.6 ML SYRINGE 55 MG SUB-Q (05:06)
[2022-02-14 06:00] VITALS: BP 118/64; PULSE 68; RESP 17; TEMP 36.4; O2SAT 99
[2022-02-14 06:42] LABS: Basophils Percent Auto 0.2 % (0.2-1.2); Eosinophils Percent Auto 0.9 % (0-4.4); Hematocrit 33.4 % (37.0-47.0); Hemoglobin 10.6 g/dL (12.0-15.0); Immature Granulocyte Absolute 0.01 K/mm3 (0.00-0.031); Immature Granulocyte Percent A 0.2 % (0-0.5); Lymphocytes Absolute Auto 1.15 K/mm3 (0.9-3.2); Lymphocytes Percent Auto 24.6 % (18.3-44.2); Mean Corpuscular HGB Conc 31.7 g/dl (32-36); Mean Corpuscular Hemoglobin 31.5 pg (26-34); Mean Corpuscular Volume 99.4 fl (80-100); Mean Platelet Volume 9.7 fl (7.4-10.4); Monocytes Absolute Auto 0.6 K/mm3 (0.1-0.6); Monocytes Percent Auto 11.8 % (2.6-8.5); Neutrophils Absolute Auto 2.9 K/mm3 (1.3-6.7); Neutrophils Percent Auto 62.3 % (45.5-73.1); Platelet Count Result 145 k/mm3 (150-375); Red Blood Count 3.36 M/mm3 (4.2-5.4); Red Cell Distribution Width 14.7 % (11.5-14.5); White Blood Count 4.7 K/mm3 (4.5-10.0)
[2022-02-14 06:49] LABS: Alanine Aminotransferase 14 U/L (6-35); Albumin Level 3.3 g/dL (3.5-5.1); Alkaline Phosphatase 122 U/L (38-126); Anion Gap 5 mmol/L (8-16); Aspartate Amino Transferase 22 U/L (14-36); Bilirubin,Total 0.4 mg/dL (0.2-1.3); Blood Urea Nitrogen 11 mg/dL (7-17); Calcium 9.6 mg/dL (8.4-10.2); Carbon Dioxide 26 mmol/L (22-30); Chloride 104 mmol/L (98-107); Estimated CRCL calculation 76 ml/min; Estimated Glomerular Filt Rate > 60; Glucose 118 mg/dL (65-110); Magnesium 2.1 mg/dL (1.6-2.3); Potassium 3.3 mmol/L (3.4-5.0); Sodium 135 mmol/L (137-145)
[2022-02-14 07:00] LABS: Glucose Point of Care 116 mg/dl (65-105)
[2022-02-14 07:51] LABS: Glucose Point of Care 112 mg/dl (65-105)
[2022-02-14] MEDS: INSULIN ASPART (*BKC) 100 UNITS/ML SUB-Q ×4 (10:27→18:50)
[2022-02-14] MEDS: INSULIN GLARGINE (*BKC) 100 UNITS/ML 35 UNITS SUB-Q (10:28)
[2022-02-14] MEDS: POTASSIUM CHLORIDE 20 MEQ TABLET 40 MEQ PO (10:30)
[2022-02-14 11:21] LABS: Glucose Point of Care 251 mg/dl (65-105)
[2022-02-14 14:00] VITALS: BP 109/60; PULSE 58; RESP 18; TEMP 36.4; O2SAT 99
--- NOTE | 2022-02-14 14:43 | PM.IMPN ---
Progress Note: A&P Assessment and Plan (1) DKA (diabetic ketoacidosis): Qualifiers: Diabetes mellitus complication detail: without coma Diabetes mellitus type: type 1 Qualified Code(s): E10.10 - Type 1 diabetes mellitus with ketoacidosis without coma Code(s): E11.10 - Type 2 diabetes mellitus with ketoacidosis without coma Status: Acute Assessment and Plan: Patient has been noncompliant and has recurrent multiple admissions almost every month for diabetic ketoacidosis. -patient presented after she did not take her long-acting insulin for 2 days, implant of nausea, vomiting and elevated blood sugars. Was found to be in DKA with elevated anion gap and beta hydroxybutyrate. Her pH was 6.91 so the ER physician gave her an amp of bicarb. Patient was given IV fluids and started on insulin drip per DKA protocol -will transition to to long-acting insulin and sliding scale insulin with Accu-Cheks -continue diabetic diet -her hemoglobin A1c is > 14.0 Continue to monitor Accu-Cheks Blood sugar at goal. Continue current insulin dosing (2) Hyperkalemia: Code(s): E87.5 - Hyperkalemia Status: Acute Assessment and Plan: Resolved likely acidosis due to diabetic ketoacidosis (3) DVT (deep venous thrombosis): Code(s): I82.409 - Acute embolism and thrombosis of unspecified deep veins of unspecified lower extremity Status: Acute Assessment and Plan: extensive DVT on right lower extremity. Started on Lovenox as she is tolerating well. Will check for Eliquis versus Xarelto at discharge eliquis covered now wt some neuro and vascular symptoms clinicaly. will ge perfusion test with us arterial duplex stat. may need thrombolytic treatment, will touch base with vascular surgery. Plan DVT prophylaxis: Lovenox Stress ulcer prophylaxis: Not indicated Nutrition: Diabetic diet Code Status: Full code Subjective Date/time seen: 02/14/22 14:43 Interval history: HPI:This is a 71-year-old female patient who has had DKA multiple times.? The patient stated that she for got to take her insulin the last 2 days.? Her last discharge was 01/31/2022.? The patient stated that she went to a democrat last night and felt fine.? However today she was vomiting and had a high blood sugar.? She has been noncompliant with her diabetic medication.? Her white count is 11.7.? On vBGs her pH is 6.913, pCO2 is 14.8.? PO2 was 64.7.? Bicarb is 2.9.? Her potassium is 5.9 her blood sugar was 703.? Her beta hydroxybutyrate acid acetate was 16.? Anion gap could not be analyzed as it is outside of the analyzer limits.? The patient was given sodium bicarb and started on lactated Ringer's.? She was started on an insulin drip.? The computer repair instructor was notified and agreed to accept the patient and ICU.? The patient is being admitted to inpatient status on the date of service of 02/10/2022 02/12/2022 doing well. On Lantus and lispro. States forgot to take her insulin. She lives by herself. Denies any abdominal pain nausea vomiting. 02/13/2022: Noted asymmetric leg swelling. Venous duplex came back positive for DVT. Started on Lovenox. Complains of pain in her leg. Denies any chest pain or shortness of breath. Discussed the finding with the patient today 02/14/2022: Complains of pain in her right leg knee downwards. Also has some tingling and numbness. no othe complaints. Review of Systems Review of Systems: All systems reviewed & are unremarkable except as noted in HPI and below Exam Narrative: General: Pleasant female in no acute distress HEENT:? Pupils equal and reactive, sclera is clear Neck:? Supple, no lymphadenopathy Respiratory:? Clear to auscultation bilaterally, no wheezing or crackles Cardiac:? S1-S2 normal, regular rate and rhythm Abdomen:? Soft, nontender, nondistended, normoactive bowel sounds Extremities:? right leg edematous, palpable pedal pulses, right foot toe colder to touch, can feel the dors
--- NOTE | 2022-02-14 15:55 | ECG_ITS ---
Measurements Intervals [place] Rate: 66 P: 67 TN: 171 QRS: 25 QRSD: 81 T: 15 QT: 359 QTc: 377 Interpretive Statements SINUS RHYTHM WITH OCCASIONAL SUPRAVENTRICULAR PREMATURE COMPLEXES BORDERLINE ECG COMPARED TO ECG 01/28/2022 18:12:18 NO SIGNIFICANT CHANGES Electronically Signed On 02-14-2022 17:22:19 LABORATORY AIDE by Frankie Paredes M.D.
[2022-02-14 16:00] VITALS: BMI 24.7
--- NOTE | 2022-02-14 16:09 | PM.IMPN ---
Progress Note: A&P Assessment and Plan (1) DKA (diabetic ketoacidosis): Qualifiers: Diabetes mellitus complication detail: without coma Diabetes mellitus type: type 1 Qualified Code(s): E10.10 - Type 1 diabetes mellitus with ketoacidosis without coma Code(s): E11.10 - Type 2 diabetes mellitus with ketoacidosis without coma Status: Acute Assessment and Plan: Patient has been noncompliant and has recurrent multiple admissions almost every month for diabetic ketoacidosis. -patient presented after she did not take her long-acting insulin for 2 days, implant of nausea, vomiting and elevated blood sugars. Was found to be in DKA with elevated anion gap and beta hydroxybutyrate. Her pH was 6.91 so the ER physician gave her an amp of bicarb. Patient was given IV fluids and started on insulin drip per DKA protocol -will transition to to long-acting insulin and sliding scale insulin with Accu-Cheks -continue diabetic diet -her hemoglobin A1c is > 14.0 Continue to monitor Accu-Cheks Blood sugar at goal. Continue current insulin dosing (2) Hyperkalemia: Code(s): E87.5 - Hyperkalemia Status: Acute Assessment and Plan: Resolved likely acidosis due to diabetic ketoacidosis (3) DVT (deep venous thrombosis): Code(s): I82.409 - Acute embolism and thrombosis of unspecified deep veins of unspecified lower extremity Status: Acute Assessment and Plan: extensive DVT on right lower extremity. Started on Lovenox as she is tolerating well. Will check for Eliquis versus Xarelto at discharge eliquis covered now wt some neuro and vascular symptoms clinicaly. will ge perfusion test with us arterial duplex stat. may need thrombolytic treatment, will touch base with vascular surgery. Plan DVT prophylaxis: Lovenox Stress ulcer prophylaxis: Not indicated Nutrition: Diabetic diet Code Status: Full code Subjective Date/time seen: 02/14/22 16:09 Interval history: HPI:This is a 71-year-old female patient who has had DKA multiple times.? The patient stated that she for got to take her insulin the last 2 days.? Her last discharge was 01/31/2022.? The patient stated that she went to a alliance party last night and felt fine.? However today she was vomiting and had a high blood sugar.? She has been noncompliant with her diabetic medication.? Her white count is 11.7.? On vBGs her pH is 6.913, pCO2 is 14.8.? PO2 was 64.7.? Bicarb is 2.9.? Her potassium is 5.9 her blood sugar was 703.? Her beta hydroxybutyrate acid acetate was 16.? Anion gap could not be analyzed as it is outside of the analyzer limits.? The patient was given sodium bicarb and started on lactated Ringer's.? She was started on an insulin drip.? The tire center manager was notified and agreed to accept the patient and ICU.? The patient is being admitted to inpatient status on the date of service of 02/10/2022 02/12/2022 doing well. On Lantus and lispro. States forgot to take her insulin. She lives by herself. Denies any abdominal pain nausea vomiting. 02/13/2022: Noted asymmetric leg swelling. Venous duplex came back positive for DVT. Started on Lovenox. Complains of pain in her leg. Denies any chest pain or shortness of breath. Discussed the finding with the patient today 02/14/2022: Complains of pain in her right leg knee downwards. Also has some tingling and numbness. no othe complaints. Review of Systems Review of Systems: All systems reviewed & are unremarkable except as noted in HPI and below Exam Narrative: General: Pleasant female in no acute distress HEENT:? Pupils equal and reactive, sclera is clear Neck:? Supple, no lymphadenopathy Respiratory:? Clear to auscultation bilaterally, no wheezing or crackles Cardiac:? S1-S2 normal, regular rate and rhythm Abdomen:? Soft, nontender, nondistended, normoactive bowel sounds Extremities:? right leg edematous, palpable pedal pulses, right foot toe colder to touch, can feel the dors
--- NOTE | 2022-02-14 16:16 | PCOTNOTE ---
Attempted to see pt. for occupational therapy evaluation. Pt. currently with service provider, and requested return at later time. Nursing aware
[2022-02-14 16:59] LABS: Glucose Point of Care 139 mg/dl (65-105)
[2022-02-14 20:54] VITALS: BP 118/70; PULSE 79; RESP 18; TEMP 37.5; O2SAT 100
[2022-02-14] MEDS: HYDROcodone/acetaminophen (*CRX) 5-325 MG TABLET 1 TAB PO (21:18)
[2022-02-14] MEDS: PRAMIPEXOLE 1 MG TABLET 3 MG PO (21:18)
[2022-02-14] MEDS: APIXABAN 5 MG TABLET 10 MG PO (21:18)
[2022-02-14 21:28] LABS: Glucose Point of Care 296 mg/dl (65-105)
[2022-02-15 05:33] VITALS: BP 164/97; PULSE 92; RESP 22; TEMP 36.6; O2SAT 100
[2022-02-15 06:45] LABS: Alanine Aminotransferase 13 U/L (6-35); Albumin Level 3.4 g/dL (3.5-5.1); Alkaline Phosphatase 108 U/L (38-126); Anion Gap 4 mmol/L (8-16); Aspartate Amino Transferase 20 U/L (14-36); Bilirubin,Total 0.4 mg/dL (0.2-1.3); Blood Urea Nitrogen 9 mg/dL (7-17); Calcium 9.8 mg/dL (8.4-10.2); Carbon Dioxide 26 mmol/L (22-30); Chloride 106 mmol/L (98-107); Estimated CRCL calculation 97 ml/min; Estimated Glomerular Filt Rate > 60; Glucose 149 mg/dL (65-110); Magnesium 2.2 mg/dL (1.6-2.3); Potassium 3.8 mmol/L (3.4-5.0); Sodium 136 mmol/L (137-145)
[2022-02-15 06:50] LABS: Basophils Percent Auto 0.6 % (0.2-1.2); Eosinophils Absolute Auto 0.1 K/mm3 (0-0.3); Eosinophils Percent Auto 1.7 % (0-4.4); Hematocrit 35.1 % (37.0-47.0); Hemoglobin 10.8 g/dL (12.0-15.0); Immature Granulocyte Absolute 0.03 K/mm3 (0.00-0.031); Immature Granulocyte Percent A 0.6 % (0-0.5); Lymphocytes Absolute Auto 1.67 K/mm3 (0.9-3.2); Lymphocytes Percent Auto 30.6 % (18.3-44.2); Mean Corpuscular HGB Conc 30.8 g/dl (32-36); Mean Corpuscular Hemoglobin 30.9 pg (26-34); Mean Corpuscular Volume 100.6 fl (80-100); Mean Platelet Volume 10.2 fl (7.4-10.4); Monocytes Absolute Auto 0.8 K/mm3 (0.1-0.6); Monocytes Percent Auto 13.9 % (2.6-8.5); Neutrophils Absolute Auto 2.9 K/mm3 (1.3-6.7); Neutrophils Percent Auto 52.6 % (45.5-73.1); Platelet Count Result 149 k/mm3 (150-375); Red Blood Count 3.49 M/mm3 (4.2-5.4); Red Cell Distribution Width 14.6 % (11.5-14.5); White Blood Count 5.5 K/mm3 (4.5-10.0)
[2022-02-15 07:38] LABS: Glucose Point of Care 136 mg/dl (65-105)
[2022-02-15 08:00] VITALS: PULSE 92; RESP 22; O2SAT 100
[2022-02-15] MEDS: INSULIN ASPART (*BKC) 100 UNITS/ML SUB-Q ×4 (09:22→17:09)
[2022-02-15] MEDS: APIXABAN 5 MG TABLET 10 MG PO (09:23)
[2022-02-15] MEDS: INSULIN GLARGINE (*BKC) 100 UNITS/ML 35 UNITS SUB-Q (09:23)
[2022-02-15 11:38] LABS: Glucose Point of Care 279 mg/dl (65-105)
--- NOTE | 2022-02-15 13:25 | PCCDE ---
Diabetes education f/up: Provided pt with sample of Freestyle Morgan 2; assisted pt with download kristin; sensor was inserted in her right arm. Pt was instructed how to use the CGM, how to interpret the numbers and trend arrow, where to find reports to share with PCP; low alarm is set at 70mg/dl and high alarm was set at 300mg/dl. Reviewed when to take insulin and importance of not skipping any doses. Pt c/o blurry vision; discussed this is due to hyperglycemia. She has been to the eye doctor but they will not give her new glasses until her sugars are stable. Encouraged pt to take her insulin to feel/see better and prevent the risk of hospitalization and due to DKA. Advised pt she must f/up with PCP and recommended she also see professional soccer player. I gave her the names and phone of a couple endo's in the area. Pt picked up her phone and said she would schedule PCP f/up today. Encouraged pt to contact DM Specialist prn.
[2022-02-15 14:00] VITALS: BP 116/65; PULSE 71; RESP 16; TEMP 35.7; O2SAT 100
--- NOTE | 2022-02-15 16:09 | PM.DS ---
DS: Admitting Diagnosis Discharge Date 02/15/2022 Admitting Diagnosis DKA DS: Discharge Diagnosis Discharge Diagnosis (1) DKA (diabetic ketoacidosis): Qualifiers: Diabetes mellitus complication detail: without coma Diabetes mellitus type: type 1 Qualified Code(s): E10.10 - Type 1 diabetes mellitus with ketoacidosis without coma Code(s): E11.10 - Type 2 diabetes mellitus with ketoacidosis without coma Status: Acute (2) Hyperkalemia: Code(s): E87.5 - Hyperkalemia Status: Acute (3) DVT (deep venous thrombosis): Code(s): I82.409 - Acute embolism and thrombosis of unspecified deep veins of unspecified lower extremity Status: Acute DS: Summary Hospital Course Hospital Course: # DKA (diabetic ketoacidosis): Patient has been noncompliant and has recurrent multiple admissions almost every month for diabetic ketoacidosis. -patient presented after she did not take her long-acting insulin for 2 days, presented with nausea, vomiting and elevated blood sugars.? she was found to be in DKA with elevated anion gap and beta hydroxybutyrate.? Her pH was 6.91 so the ER physician gave her an amp of bicarb.? Patient was given IV fluids and started on insulin drip per DKA protocol. after DKA has resolved she was transition to long-acting insulin. Her A1c came back at more than 14. Blood sugar monitor during the hospital stay and remained in goal. museum educator was consulted and she was provided with freestyle Morgan 2 sample during the hospital stay for her to monitor her blood sugar also discussed her daughter regard to ensuring she takes her insulin regularly. I also advised her to keep a reminder for taking insulin Every day at home. # hyperkalemia: Resolved likely acidosis due to diabetic ketoacidosis # newly diagnosed acute DVT on right lower extremity: ?extensive DVT on right lower extremity. Started on Lovenox Therapeutic dose. She will be switched to Eliquis. There were some neuro and vascular symptoms reported by the patient and hence perfusion test with ultrasound arterial duplex was done which came back normal. She will continue with Eliquis at discharge and will follow-up with PCP for follow-up ultrasound in future. She had a right femoral venous catheter placed December while admitted for DKA. This likely is a contributing factor for development of DVT. She had no prior history of DVT in the past. Follow-up ultrasound to determine the duration of anticoagulation per PCP or follow-up with director of operations as an outpatient basis. # DVT prophylaxis:? Lovenox #Nutrition:? Diabetic diet #Code Status:? Full code Time Spent with Patient Time attestation: Total time spent providing and/or coordinating discharge services: 50 minutes Exam Narrative: General:? Pleasant female in no acute distress HEENT:? Pupils equal and reactive, sclera is clear Neck:? Supple, no lymphadenopathy Respiratory:? Clear to auscultation bilaterally, no wheezing or crackles Cardiac:? S1-S2 normal, regular rate and rhythm Abdomen:? Soft, nontender, nondistended, normoactive bowel sounds Extremities:?? right leg edematous, palpable pedal pulses Neuro:, patient is awake, alert, oriented, nonfocal Skin:? No lesions noted Psych:?? normal mood DS: Data Data Completed and Pending Labs on day of discharge: Labs from last 24 hours 02/15/22 02/15/22 02/15/22 11:29 07:32 05:39 WBC RBC Hgb Hct MCV MCH MCHC RDW Plt Count MPV Immature Gran % (Auto) Neut % (Auto) Lymph % (Auto) Swisher % (Auto) Eos % (Auto) Baso % (Auto) Lymph # (Auto) Swisher # (Auto) Eos # (Auto) Baso # (Auto) Abs Immat Gran (auto) Absolute Neuts (auto) Absolute Nucleated RBC Nucleated RBC % Sodium 136 L Potassium 3.8 Chloride 106 Carbon Dioxide 26 Anion Gap 4 L BUN 9 Creatinine 0.30 L Estim Creat Clear Calc 97 Estimated GFR
[2022-02-15 16:52] LABS: Glucose Point of Care 194 mg/dl (65-105)
--- NOTE | 2022-02-16 17:00 | PCCDE ---
Called pt at home for f/up regarding using Pro Stream + Morgan 2 CGM. Pt has not scanned her glucose. Attempted unsuccessfully over the phone to walk her thru it. Pt sts her vision is blurring and could not read the screen. She was not able to get a glucose number. She had not done SMBG today either. She sts she only took one dose of insulin so far today. She could not remember what she has eaten today. I had her go do a fingerstick BG and pt reports BG was 398mg/dl. Pt sts her sliding scale says to take 6 units of insulin. I instructed pt to take insulin and eat some dinner. Her grandson arrived to help her with her Kal[place] tree. Advised her to ask her grandson to help her scan her glucose on the Morgan. I confirmed her email and sent her an invite to share her data on [employer] and said I will call her tomorrow to f/up.
--- NOTE | 2022-02-17 13:40 | PCCDE ---
Called pt but she did not answer. left a voice mail.
== END 2022-02-15 19:03 | disposition home or self-care (01) | DRG 638 ==
LOC: ANHED 13:49 → ANHICU 14:16 → ANH3MEDSUR 02-11 11:17
PROVIDERS: Nurse Practitioner; Admitting Provider Internal Medicine; Emergency Provider Emergency Medicine; PCP Family Medicine; Visit Provider Internal Medicine
DX: E10.10 Type 1 diabetes mellitus with ketoacidosis without coma (principal); E87.1 Hypo-osmolality and hyponatremia; I82.411 Acute embolism and thrombosis of right femoral vein; I82.431 Acute embolism and thrombosis of right popliteal vein; I82.451 Acute embolism and thrombosis of right peroneal vein; I82.441 Acute embolism and thrombosis of right tibial vein; I82.491 Acute embolism and thrombosis of other specified deep vein of right lower extremity; Z20.822 Contact with and (suspected) exposure to COVID-19; E10.42 Type 1 diabetes mellitus with diabetic polyneuropathy; E86.0 Dehydration; E03.9 Hypothyroidism, unspecified; E87.5 Hyperkalemia; D64.9 Anemia, unspecified; G25.81 Restless legs syndrome; F41.8 Other specified anxiety disorders; M79.7 Fibromyalgia; F32.A Depression, unspecified; Z79.4 Long term (current) use of insulin; Z28.21 Immunization not carried out because of patient refusal; Z91.14 Patient's other noncompliance with medication regimen; Z85.43 Personal history of malignant neoplasm of ovary; Z86.16 Personal history of COVID-19; Z90.710 Acquired absence of both cervix and uterus; Z90.722 Acquired absence of ovaries, bilateral
CPT/HCPCS: 36415; 80048; 80053; 81001; 82010; 82803; 82947; 82948; 83036; 83605; 83735; 84100; 85025; 85055; 87636; 93005; 93923; 93971; 97161; 97165; 99285; A9270; J1650; J1815; J2270; J3480; J7030; J7120

== ENCOUNTER 2022-02-18 17:23 | Inpatient (IN) | payer MEDICARE, OTHER, SELFPAY ==
--- NOTE | ~2022-02-18 | CT_ITS ---
EXAMINATION: CT brain wo con DATE: 02/18/2022 19:52 INDICATION: Altered mental status TECHNIQUE: Computed tomography (CT) of the head was performed without intravenous contrast. The mA wa s adjusted according to patient size. Iterative reconstruction technique was employed. Exam dose: 68 1.00 mGy-cm total exam DLP. COMPARISON: 01/17/2022 CT brain. FINDINGS: No intracranial mass lesion or hemorrhage or cerebrovascular accident is detected. No midli ne shift or mass effect. Ventricular size is within normal range. No subdural or epidural hematoma. No orbital mass lesion. The mastoid air cells and paranasal sinuses are unremarkable. No fracture or bone destruction of the cranial vault. IMPRESSION: No significant intracranial abnormality Reviewed, dictated and finalized at [facility]. Reviewed, dictated and finalized at location [facility]. 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
--- NOTE | ~2022-02-18 | XR_ITS ---
XR chest 1V portable DATE: 02/18/2022 18:54 INDICATION: Cough TECHNIQUE: Portable AP views on 02/18/2022 0849 hours COMPARISON: 01/26/2022 portable AP chest FINDINGS: Borderline heart size. Aortic arch calcification, mild aortic tortuosity. Calcified azygous node consistent with old granulomatous disease. No pulmonary infiltrate or consolidation, pleural ef fusion or pulmonary vascular congestion or pneumothorax. IMPRESSION: No active pulmonary disease Reviewed, dictated and finalized at location [facility]. GER MUTUAL FUND IMPRESSION: No active pulmonary disease
--- NOTE | ~2022-02-18 | XR_ITS ---
EXAMINATION: XR chest PICC line Exam Date/Time: 02/19/2022 15:57 PROCESS PROJECT ENGINEER HISTORY: PICC LINE PLACEMENT VERIFICATION Comparison: 02/18/2022. RESULT: Lines, tubes, and devices: Right upper extremity PICC terminates in the proximal superior vena cava. Lungs and pleura: Worsening diffuse reticular opacities. Cardiomediastinal silhouette: Stable. Other: No acute osseous or upper abdominal finding. IMPRESSION: Right upper extremity PICC, in good position. Pulmonary opacities may reflect interstitial edema. Reviewed, dictated and finalized at location K. ESS PROJECT ENGINEER IMPRESSION: Right upper extremity PICC, in good position. Pulmonary opacities may reflect i nterstitial edema.
--- NOTE | 2022-02-18 17:29 | ECG_ITS ---
Measurements Intervals [place] Rate: 111 P: OR: 0 QRS: 49 QRSD: 99 T: 21 QT: 319 QTc: 434 Interpretive Statements ATRIAL FIBRILLATION WITH RAPID VENTRICULAR RESPONSE BASELINE ARTIFACT NONSPECIFIC ST & T-WAVE ABNORMALITY ABNORMAL ECG COMPARED TO ECG 02/14/2022 16:25:18 ATRIAL FIBRILLATION NOW PRESENT Electronically Signed On 02-19-2022 13:32:17 [employer]CH PAT[employer] by Alberto Louise M.D.
[2022-02-18 17:30] VITALS: BP 129/60; PULSE 116; RESP 20; O2SAT 100
[2022-02-18 17:56] LABS: Glucose Point of Care > 500 mg/dl (65-105)
[2022-02-18 18:02] LABS: Base Excess ABG -24.7 mEq/l (+/-2.0); Carboxyhemoglobin 0.3 % THb (0-2.0); Fractional Inspired Oxygen 21 %; Methemoglobin ABG 0.5 %THb (0-1.5); Oxygen Content ABG 15.9 %vol (16.0-22.0); Oxygen Saturation ABG 97.4 % (95.0-100.0); Oxyhemoglobin 96.1 % THb (90.0-100.0); PO2 ABG 134.1 mmHg (80.0-100.0); PO2 FiO2 Ratio Arterial Blood 6.39 %; Reduced Hemoglobin 3.1 %THb (0-5.0); Total Hemoglobin 11.6 g/dL (12.0-18.0)
[2022-02-18 18:06] LABS: Basophils Percent Auto 0.3 % (0.2-1.2); Eosinophils Percent Auto 0.1 % (0-4.4); Hematocrit 38.2 % (37.0-47.0); Hemoglobin 11.1 g/dL (12.0-15.0); Immature Granulocyte Percent A 1.1 % (0-0.5); Lymphocytes Absolute Auto 0.63 K/mm3 (0.9-3.2); Lymphocytes Percent Auto 7.1 % (18.3-44.2); Mean Corpuscular HGB Conc 29.1 g/dl (32-36); Mean Corpuscular Hemoglobin 31.5 pg (26-34); Mean Corpuscular Volume 108.5 fl (80-100); Mean Platelet Volume 10.4 fl (7.4-10.4); Monocytes Absolute Auto 0.7 K/mm3 (0.1-0.6); Monocytes Percent Auto 7.7 % (2.6-8.5); Neutrophils Absolute Auto 7.4 K/mm3 (1.3-6.7); Neutrophils Percent Auto 83.7 % (45.5-73.1); Platelet Count Result 536 k/mm3 (150-375); Red Blood Count 3.52 M/mm3 (4.2-5.4); Red Cell Distribution Width 15.3 % (11.5-14.5); White Blood Count 8.9 K/mm3 (4.5-10.0); pH ABG 7.043 (7.350-7.450)
[2022-02-18 18:08] LABS: Device ROOM AIR; Site Drawn LEFT BRACHIAL
[2022-02-18] MEDS: SODIUM CHLORIDE 0.9% IV 1,000 ML 999 ML IV CONT ×3 (18:08→21:54)
[2022-02-18 18:27] LABS: Platelet Estimate Increased (Adequate)
[2022-02-18 18:28] LABS: Anisocytosis 1+ (NORMAL); Hypochromasia 1+ (NORMAL); Macrocytosis 1+ (NORMAL)
[2022-02-18 18:29] LABS: Burr Cells 1+ (NORMAL); Ovalocytes 1+ (NORMAL); Schistocytes None Seen (NORMAL)
[2022-02-18 18:47] LABS: Influenza A QL RT-PCR Negative (Negative); Influenza B QL RT-PCR Negative (Negative); SARS-CoV-2 RNA PCR Negative
--- NOTE | 2022-02-18 19:08 | PC.NURSE ---
Patient arrived in to the Emergency department via [facility], insurance writer noticed from across the emergency department, patient was agonal breathing and pale. Upon arrival in to ED room 1, patient continued to have agonal respirations. Gas Turbine Mechanic assessed patient had ear lobes, lips, and finger tip were cyanotic. EMS and ED staff were attempting to transfer patient to ED stretcher when patient stopped agonal breathing. Patient was quickly pulled to ED stretcher, no pulse palpated. CPR initiated with compressions at 1828 1830 CPR in progress, no IV access 1832 R tibia IO initiated and flushed with lidocaine 1832 1mg Epi given 183 pulse check, PEA 1836 CPR resumed with compressions 183 Patient intubated with 7.5 ETT, 23 at the lip. 1837 1mg Epi given 1838 50mEq Bicarb given 1840 Pulse check-PEA, 1mg Epi given 1841 CPR resumed with compressions 1841 Blood glucose 148mg/dl 1842 pulse check-Pulse 94, palpable femoral pulse felt 1843 Patient heart rate became bradycardic 1844 1mg Epi 1845 50 mEq Bicarb given 1847 Pulse check-PEA, no palpable pulse 1848 CPR resumed with compressions 1850 Pulse check-PEA 1851 1mg Epi given 1852 Pulse check-PEA 1852 CPR resumed with compressions 1854 Pulse check-PEA 1854 CPR resumed with compressions 1854 1mg Epi given 1856 CPR in progress 1857 1mg Epi given 1858 Pulse check-PEA 1859 CPR resumed with compressions 1900 Pulse check-PEA Time of declared at 1900
--- NOTE | 2022-02-18 19:30 | PM.IMHP ---
H&P: HPI History of Present Illness Date/Time: 02/18/22 19:30 Chief Complaint: Nausea and vomiting. Narrative: This is a 71-year-old female with insulin-dependent diabetes, hypertension, hyperlipidemia, and hypothyroidism who presented to the emergency department via EMS from home for evaluation of nausea and vomiting. She is well known to the hospitalist service and was recently discharged within the last several days after being hospitalized with DKA. She tells me that she has not felt well since discharge and has not been eating due to ongoing nausea though today she started vomiting after trying to eat some chicken noodle soup. Because she has not been feeling well she has not been taking her insulin. Once again she has been found to be in DKA and she is being admitted in this setting. At the time my evaluation she reports feeling better with IV fluids alone. She denies fever, chills, sweats, cold and flu symptoms, chest pain, shortness a breath, nausea, vomiting, diarrhea, and dysuria. At the time my evaluation she is alert and oriented x4 however she seems to be hallucinating and keeps talking about cats that are not in the room. Review of Systems Review of Systems: Twelve systems were reviewed. The accuracy of such is questionable although she is alert and oriented she occasionally needs nonsensically and seems to be hallucinating. She denies falls. No headache or neck ache. She denies sore throat. No chest pain or shortness of breath (Kussmaul respirations on exam). [facility] Past Medical History Medical History (Updated 02/18/22 @ 21:29 by Mayra Verma PA-C) Depression Diabetic peripheral neuropathy Fibromyalgia Hypothyroidism Memory change Ovarian cancer At the age of 33, status post hysterectomy. Patient states that half an ovary was left during surgery. She required no further treatment. Pneumonia due to COVID-19 virus (09/2020) Restless leg syndrome Shingles Type 2 diabetes mellitus Hemoglobin A1c was > 14% August 2021 C-peptide 0.63. Surgical History Surgical History (Updated 02/18/22 @ 21:13 by Mayra Verma PA-C) History of tonsillectomy (1970) History of total hysterectomy with bilateral salpingo-oophorectomy (BSO) (1983) History of tubal ligation (1983) Family History Family History Grandparent Family history of premature coronary heart disease, Onset Age: 64 Father Family history of respiratory disorder, Onset Age: 87 Family history of cardiovascular disease Patient's father is Family history of Alzheimer's disease Cerebrovascular accident Mother Family history of primary malignant neoplasm of liver, Onset Age: 64 Family history of malignant neoplasm Patient's mother is , Onset Age: 64 Family history of malignant neoplasm of breast in first degree relative Sibling Heart attack Sibling Heart attack Social History Social History (Updated 02/18/22 @ 21:15 by Mayra Verma PA-C) Social History: The patient is . She lives in her own home in [place], [place]. Her daughter Mary used to live with her but it does not sound as though she does any longer, unclear. She has 2 daughters, and designates her daughter Jose Posey, as her surrogate decision maker. She is a lifelong nonsmoker. She drinks perhaps 4-12 alcoholic beverages a week. No drug use. Code status: Full code. Other substance usage details: per ER note 4-12 drinks per week Lack of Transportation: No Lack of Food: Never True Current Housing: I Have Housing Concerned About Future Housing: No Difficulty Paying Gas/Electric Bills: No Difficulty Paying for Meds: No Currently Unemployed: No Education: High School Diploma/GED Difficulty w/ Childcare or Family Care: No Spiritual care concerns: No Meds Home Medications and Allergies Home Medications Medication Instructions Recorded
[2022-02-18 19:34] LABS: Glucose Point of Care > 500 mg/dl (65-105)
--- NOTE | 2022-02-18 19:49 | PC.NURSE ---
Expressed the need for a patient sitter at this time. No sitter available. ED Charge aware and greenhouse technician aware. Bed alarm already in place, yellow clasp applied and yellow triangle outside the door. patient trying to get out of bed.
[2022-02-18 20:00] VITALS: BP 116/64; PULSE 97; RESP 16; TEMP 37.3; O2SAT 97
[2022-02-18 20:51] LABS: Alanine Aminotransferase 18 U/L (6-35); Alkaline Phosphatase 176 U/L (38-126); Aspartate Amino Transferase 25 U/L (14-36); Bilirubin,Total 0.3 mg/dL (0.2-1.3); Blood Urea Nitrogen 37 mg/dL (7-17); Calcium 10.5 mg/dL (8.4-10.2); Carbon Dioxide < 5 mmol/L (22-30); Chloride 95 mmol/L (98-107); Estimated Glomerular Filt Rate 49; Magnesium 2.8 mg/dL (1.6-2.3); Phosphorus 8.7 mg/dL (2.5-4.5); Potassium 6.2 mmol/L (3.4-5.0); Sodium 133 mmol/L (137-145)
[2022-02-18 20:56] LABS: Glucose 962 mg/dL (65-110)
--- NOTE | 2022-02-18 21:01 | ED.GENADULT ---
HPI - General Adult General Chief complaint: Recheck/Abnormal Lab/Rx Stated complaint: sob, possible dka Source: RN notes reviewed History of Present Illness HPI narrative: Patient presents emergency department from home via EMS for nausea vomiting high blood sugars. Patient states she has a history of diabetes states she has not been feeling well for the past 2 days and has not been taking her insulin. States she tried to eat chicken noodle soup yesterday but vomited it up. She states that she is consistently nauseous. Also feeling mildly short of breath. She denies any fevers or chills or chest pain denies any abdominal pain or diarrhea. Patient states she does have a history of DKA Related Data Home Medications Medication Instructions Recorded Confirmed pramipexole 1.5 mg tablet 3 mg PO HS 12/22/21 02/10/22 insulin aspart U-100 100 unit/mL 1 sliding scale dose subcut 01/04/22 02/10/22 subcutaneous solution (Novolog TIDWMEAL U-100 Insulin aspart) insulin glargine 100 unit/mL 35 unit subcut HS 01/28/22 02/10/22 subcutaneous solution (Lantus U-100 Insulin) Allergies Allergy/AdvReac Type Severity Reaction Status Date / Time banana Allergy Severe SEVERE Verified 02/10/22 08:01 HIVES acetaminophen [From Tylenol] AdvReac Intermediate Nausea and Verified 02/10/22 08:01 Vomiting aspirin AdvReac Intermediate Nausea and Verified 02/10/22 08:01 Vomiting fluoxetine [From Prozac] AdvReac Hallucinati Verified 02/10/22 08:01 ng Review of Systems Review of Systems: Gen.: Denies fevers or chills ENT: Denies congestion Respiratory: Reports shortness of breath CV: Denies chest pain or palpitations GI: Denies abdominal pain diarrhea. Reports nausea vomiting denies burning, urgency, frequency or hematuria Musculoskeletal: Denies back pain or muscle pain Neuro: Denies numbness, tingling, weakness or focal weakness Skin: Denies rash Endocrine: Reports elevated blood sugars Except as documented, all other systems reviewed and negative REPLACED BY [facility] Past Medical History Medical History (Updated 02/18/22 @ 21:29 by Mayra Verma PA-C) Depression Diabetic peripheral neuropathy Fibromyalgia Hypothyroidism Memory change Ovarian cancer At the age of 33, status post hysterectomy. Patient states that half an ovary was left during surgery. She required no further treatment. Pneumonia due to COVID-19 virus (09/2020) Restless leg syndrome Shingles Type 2 diabetes mellitus Hemoglobin A1c was > 14% August 2021 C-peptide 0.63. Surgical History Surgical History (Updated 02/18/22 @ 21:13 by Mayra Verma PA-C) History of tonsillectomy (1970) History of total hysterectomy with bilateral salpingo-oophorectomy (BSO) (1983) History of tubal ligation (1983) Family History Family History Grandparent Family history of premature coronary heart disease, Onset Age: 64 Father Family history of respiratory disorder, Onset Age: 87 Family history of cardiovascular disease Patient's father is Family history of Alzheimer's disease Cerebrovascular accident Mother Family history of primary malignant neoplasm of liver, Onset Age: 64 Family history of malignant neoplasm Patient's mother is , Onset Age: 64 Family history of malignant neoplasm of breast in first degree relative Sibling Heart attack Sibling Heart attack Social History Social History (Updated 02/18/22 @ 21:15 by Mayra Verma PA-C) Social History: The patient is . She lives in her own home in [place], [place]. Her daughter Mary used to live with her but it does not sound as though she does any longer, unclear. She has 2 daughters, and designates her daughter Jose Posey, as her surrogate decision maker. She is a lifelong nonsmoker. She drinks perhaps 4-12 alcoholic beverages a week. No drug use. Code status: Full code.
[2022-02-18 21:51] LABS: Add Urine Microscopic? YES; Appearance Urine Clear (Clear); Bilirubin Urine Negative (Negative); Blood Urine Trace-Intact (Negative); Color Urine Light Yellow (Yellow); Glucose Urine UA 3+ mg/dL (Negative); Ketones Urine 3+ mg/dL (Negative); Leukocyte Esterase Ur Negative LEU/UL (Negative); Nitrate Urine Negative (Negative); Protein Urine Trace mg/dL (Negative); Urobilinogen Urine 0.2 mg/dL (<2.0); pH Urine 5.5 (5.0-9.0)
[2022-02-18 21:54] LABS: Bacteria Urine Trace /hpf; Mucus Urine Rare /lpf; RBC Urine 0-2 /hpf (0-2); Squamous Epithelial Cell Urine Rare /hpf (Few); WBC Urine 0-3 /hpf
[2022-02-18] MEDS: INSULIN HUMAN REGULAR (*BKC) 100 UNITS in SODIUM CHLORIDE 0.9% IV 99 ML 18 UNITS IV CONT (21:56)
[2022-02-18 22:00] VITALS: BP 85/68; PULSE 73; RESP 16; TEMP 37.5; O2SAT 100
[2022-02-18] MEDS: INSULIN HUMAN REGULAR (*BKC) 100 UNITS/ML 6 UNITS IV PUSH (22:01)
[2022-02-18 22:19] LABS: Hemoglobin A1C > 14.0 % (<5.7)
[2022-02-18 23:20] VITALS: BP 100/59; PULSE 99; RESP 22; O2SAT 98
[2022-02-19] VITALS (17 sets, daily range): BP systolic 85–123; BP diastolic 56–69; PULSE 73–120; RESP 14–20; TEMP 33.9–37.5; O2SAT 97–100
[2022-02-19 00:19] LABS: Glucose Point of Care > 500 mg/dl (65-105)
[2022-02-19] MEDS: SODIUM CHLORIDE 0.9% IV 1,000 ML 150 ML IV CONT ×2 (01:05→07:36)
[2022-02-19 01:09] LABS: Glucose Point of Care > 500 mg/dl (65-105)
[2022-02-19 01:35] LABS: Blood Urea Nitrogen 38 mg/dL (7-17); Calcium 10.3 mg/dL (8.4-10.2); Carbon Dioxide < 5 mmol/L (22-30); Chloride 105 mmol/L (98-107); Estimated Glomerular Filt Rate 49; Glucose 814 mg/dL (65-110); Magnesium 2.9 mg/dL (1.6-2.3); Phosphorus 6.7 mg/dL (2.5-4.5); Potassium 4.6 mmol/L (3.4-5.0); Sodium 142 mmol/L (137-145)
--- NOTE | 2022-02-19 02:05 | ADMGEN ---
This patient, Karly Leslie, was admitted to Intensive Care Unit-5 at 0045. Patient/family oriented to hospital policies and general routines including ID bracelet, bed and alarms, visiting hours, pain management, procedures, bathroom and other care routines, personal items, smoking policy, room service/diet, and visiting hours. Information on how to activate the Rapid Response Team has been discussed. Patient/Family are encouraged to report perceived risks to care and to ask questions if they do not understand what they are told or what they should do.
[2022-02-19 03:05] LABS: Glucose 690 mg/dL (65-110)
[2022-02-19 03:21] LABS: Glucose Point of Care > 500 mg/dl (65-105)
[2022-02-19 04:53] LABS: Hematocrit 28.8 % (37.0-47.0); Hemoglobin 8.5 g/dL (12.0-15.0); Mean Corpuscular HGB Conc 29.5 g/dl (32-36); Mean Corpuscular Volume 105.1 fl (80-100); Mean Platelet Volume 9.2 fl (7.4-10.4); Platelet Count Result 388 k/mm3 (150-375); Red Blood Count 2.74 M/mm3 (4.2-5.4); Red Cell Distribution Width 14.1 % (11.5-14.5); White Blood Count 9.6 K/mm3 (4.5-10.0)
[2022-02-19 05:05] LABS: Lactic Acid Reflex 2.1 mmol/L (0.7-2.0)
[2022-02-19 05:07] LABS: Glucose Point of Care 492 mg/dl (65-105)
[2022-02-19 05:13] LABS: Alanine Aminotransferase 36 U/L (6-35); Albumin Level 3.6 g/dL (3.5-5.1); Alkaline Phosphatase 183 U/L (38-126); Anion Gap 25 mmol/L (8-16); Aspartate Amino Transferase 111 U/L (14-36); Bilirubin,Total 0.2 mg/dL (0.2-1.3); Blood Urea Nitrogen 38 mg/dL (7-17); Calcium 10.2 mg/dL (8.4-10.2); Carbon Dioxide 8 mmol/L (22-30); Chloride 107 mmol/L (98-107); Estimated Glomerular Filt Rate > 60; Glucose 567 mg/dL (65-110); Magnesium 2.6 mg/dL (1.6-2.3); Sodium 140 mmol/L (137-145)
[2022-02-19 05:30] LABS: Band Neutrophils Percent 12 % (0-6); Lymphocytes Absolute Manual 0.96 K/mm3 (1.1-4.5); Monocytes Absolute Manual 0.48 K/mm3 (0.1-0.90); Monocytes Percent Manual 5 % (3-9); Neutrophils Absolute Manual 8.16 K/mm3 (1.7-7.2); Neutrophils Percent Manual 73 % (46-73); Platelet Estimate Adequate (Adequate); Total Cells Counted 100
[2022-02-19 05:31] LABS: Giant Platelets Present
[2022-02-19 05:32] LABS: Burr Cells 2+ (NORMAL); Hypochromasia 1+ (NORMAL); Macrocytosis 1+ (NORMAL); Poikilocytosis 1+ (NORMAL); Schistocytes 1+ (NORMAL)
[2022-02-19 05:33] LABS: Crenated RBC 1+ (NORMAL)
[2022-02-19 06:22] LABS: Glucose Point of Care 400 mg/dl (65-105)
[2022-02-19 07:10] LABS: Glucose Point of Care 345 mg/dl (65-105)
[2022-02-19 07:50] LABS: Reflex Lactic Acid Yes or No Add Lactic
--- NOTE | 2022-02-19 08:03 | PM.IMPN ---
Progress Note: A&P Assessment and Plan (1) DKA (diabetic ketoacidosis): Qualifiers: Diabetes mellitus complication detail: without coma Diabetes mellitus type: type 1 Qualified Code(s): E10.10 - Type 1 diabetes mellitus with ketoacidosis without coma Code(s): E11.10 - Type 2 diabetes mellitus with ketoacidosis without coma Status: Acute Assessment and Plan: Patient has Long history of noncompliance to insulin and has recurrent multiple admissions almost every month with diabetic ketoacidosis. -patient presented after she did not take her long-acting insulin for 2 days, implant of nausea, vomiting and elevated blood sugars. Was found to be in DKA with elevated anion gap and beta hydroxybutyrate. Her pH was 6.91 so the ER physician gave her an amp of bicarb. Patient was given IV fluids and started on insulin drip per DKA protocol -will transition to to long-acting insulin and sliding scale insulin with Accu-Cheks -continue diabetic diet -her hemoglobin A1c is > 14.0 Continue to monitor Accu-Cheks Blood sugar at 249. Continue current insulin dosing (2) Hyperkalemia: Code(s): E87.5 - Hyperkalemia Status: Acute Assessment and Plan: Resolved likely acidosis due to diabetic ketoacidosis (3) DVT (deep venous thrombosis): Code(s): I82.409 - Acute embolism and thrombosis of unspecified deep veins of unspecified lower extremity Status: Acute Assessment and Plan: extensive DVT on right lower extremity. Started on Lovenox as she is tolerating well. Will check for Eliquis versus Xarelto at discharge eliquis covered now wth some neuro and vascular symptoms clinicaly. will ge perfusion test with us arterial duplex stat. may need thrombolytic treatment, will touch base with vascular surgery. Plan DVT prophylaxis: Lovenox Stress ulcer prophylaxis: Not indicated Nutrition: Diabetic diet Code Status: Full code Time Spent With Patient Time with patient: 15 - 25 minutes Subjective Date/time seen: 02/19/22 08:03 Interval history: Narrative: Patient presents emergency department from home via EMS for nausea vomiting high blood sugars.? Patient states she has a history of diabetes states she has not been feeling well for the past 2 days and has not been taking her insulin.? States she tried to eat chicken noodle soup yesterday but vomited it up.? She states that she is consistently nauseous.? Also feeling mildly short of breath.? She denies any fevers or chills or chest pain denies any abdominal pain or diarrhea.? Patient states she does have a history of DKA S: Patient was seen and examined at the bedside. She is sleepy and morning. There was no evidence of distress. Review of Systems Review of Systems: ROS unobtainable: Yes unobtainable due to medical condition and unobtainable due to mental status Exam Narrative: APPEARANCE: No acute distress, nontoxic, resting in bed EYES: EOMI HEENT: Normocephalic, atraumatic, normal oral mucosa dry RESPIRATORY: No respiratory distress Clear to auscultation bilaterally with no rhonchi wheezing or rales. CARDIOVASCULAR: Tachycardic and regular without murmurs rubs or gallops. ABDOMINAL: Soft, nontender, nondistended, no rebound or guarding MUSCULOSKELETAl: Moves all extremities. No clubbing, cyanosis or edema. NEURO: Awake and alert. Following commands, speech normal, no focal deficits SKIN:: Warm, dry. No rashes lesions or abrasions PSYCHIATRIC: Normal affect/mood, Objective Data Vital Signs Vital Signs: Vital Signs - 24 hr 02/18/22 17:30 02/18/22 23:20 02/19/22 00:43 Temperature Pulse Rate 116 H 99 88 Respiratory Rate 20 22 H 20 Blood Pressure 129/60 100/59 L 106/58 L Pulse Oximetry 100 98 98 Oxygen Delivery Room Air 02/19/22 04:00 02/19/22 02:00 02/19/22 04:00 Temperature 93.0 F L Pulse Rate 99 111 H Respiratory Rate 20 Blood Pressure 116/69 Pulse Oximetry 100 Oxygen Delivery Room A
[2022-02-19] MEDS: INSULIN HUMAN REGULAR (*BKC) 100 UNITS in SODIUM CHLORIDE 0.9% IV 99 ML 17.76 UNITS IV CONT (08:22)
[2022-02-19 08:43] LABS: Anion Gap 12 mmol/L (8-16); Blood Urea Nitrogen 34 mg/dL (7-17); Calcium 10.3 mg/dL (8.4-10.2); Carbon Dioxide 16 mmol/L (22-30); Chloride 113 mmol/L (98-107); Estimated Glomerular Filt Rate > 60; Glucose 249 mg/dL (65-110); Lactic Acid 1.3 mmol/L (0.7-2.0); Potassium 4.1 mmol/L (3.4-5.0); Sodium 141 mmol/L (137-145)
--- NOTE | 2022-02-19 09:10 | WPDCNINT ---
Assessment and Plan Assessment and plan (1) Diabetic ketoacidosis: Code(s): E11.10 - Type 2 diabetes mellitus with ketoacidosis without coma Status: Acute Assessment and Plan: Recurrent DKA secondary to noncompliance with insulin Patient was given IVF bolus in ER and and started on infusion IV fluids She was also started on Insulin infusion and Q1H glucose monitoring which will be continued Serial labs are being performed Her anion gap has closed NPO (2) Hyperkalemia: Code(s): E87.5 - Hyperkalemia Status: Acute Assessment and Plan: Secondary to acidosis Resolved with IV fluids and insulin Monitor (3) Encephalopathy: Code(s): G93.40 - Encephalopathy, unspecified Status: Acute Assessment and Plan: Metabolic encephalopathy secondary to DKA head CT negative She is AO x3 when awake. Nonfocal exam Monitor (4) SIRS (systemic inflammatory response syndrome): Code(s): R65.10 - Systemic inflammatory response syndrome (SIRS) of non-infectious origin without acute organ dysfunction Status: Acute Assessment and Plan: Secondary to DKA WBC normal Chest x-ray, UA negative Not on any antibiotics Monitor (5) Dehydration: Code(s): E86.0 - Dehydration Status: Acute Assessment and Plan: Improved with IV fluids Continue Plan DVT prophylaxis -patient is on Eliquis. Since she can take p.o. pills at this time I will switch her to therapeutic Lovenox Stress ulcer prophylaxis - Nutrition -NPO Code Status - Full Code Total Critical Care Time - 30 minutes Due to a high probability of clinically significant, life threatening deterioration, the patient required my highest level of preparedness to intervene emergently and I personally spent this critical care time directly and personally managing the patient. This critical care time included obtaining a history; examining the patient; pulse oximetry; ordering and review of studies; arranging urgent treatment with development of a management plan; evaluation of patient's response to treatment; frequent reassessment; and discussions with other providers. It was exclusive of separately billable procedures and treating other patients and teaching time. Please see Assessment and Plan section and the rest of the note for further information on patient assessment and treatment Learning Disabilities Specialist Consult Note Consult date: 02/19/22 Reason for consult: DKA HPI: Karly Leslie is a 71 year old female with past medical history of type 2 diabetes which was diagnosed in February of 2020 and noncompliance with insulin with multiple frequent admissions to ER with DKA presented to ED last night with chief complaint of nausea and vomiting.? Patient was discharged 3 days ago after treatment for DKA. Patient has significant compliance issues and comes frequently for DKA. In ED patient patient was found to be having elevated blood sugars and DKA. She was given IV fluid bolus, started on IV fluids and IV insulin infusion. She was hyperkalemic which is treated with insulin and fluids. Patient was admitted to ICU for further evaluation management This morning when I saw the patient she is drowsy but arouses. She is AO x3 but would not provide any meaningful history. She continues to moans and groans on asking questions. She admitted by nodding her head that she does not take her insulin regularly. The only complaint I could get out of her was that she was being weak and tired and had been feeling sick for for few days. She denied any nausea vomiting at this time. Limited review of system obtainable due to patient not answering questions. Review of Systems Review of Systems: ROS unobtainable: Yes unobtainable due to medical condition and unobtainable due to mental status PMFSH Past Medical History Medical History Depression Diabetic peripheral neuropathy Fibromyalgia
[2022-02-19] MEDS: ENOXAPARIN 60 MG/0.6 ML SYRINGE 55 MG SUB-Q ×2 (09:13→20:22)
[2022-02-19 09:19] LABS: Glucose Point of Care 226 mg/dl (65-105)
[2022-02-19 09:19] LABS: Glucose Point of Care 282 mg/dl (65-105)
[2022-02-19] MEDS: ONDANSETRON INJ 4 MG/2 ML VIAL IV PUSH (09:33)
[2022-02-19] MEDS: KCL 20 MEQ/D5/0.45% SOD CHL 1,000 ML 150 ML IV CONT (09:33)
--- NOTE | 2022-02-19 10:08 | ECG_ITS ---
Measurements Intervals Hunt Rate: 94 P: 78 MI: 123 QRS: 36 QRSD: 102 T: -28 QT: 346 QTc: 433 Interpretive Statements SINUS RHYTHM WANDERING BASELINE ARTIFACT ST DEVIATION AND MODERATE T-WAVE ABNORMALITY, CONSIDER ANTEROLATERAL ISCHEMIA ABNORMAL ECG COMPARED TO ECG 02/18/2022 22:15:15 SINUS RHYTHM HAS REPLACED ATRIAL FIBRILLATION WITH RAPID VENTRICULAR RESPONSE Electronically Signed On 02-19-2022 13:40:15 MARRIAGE PERFORMER by Alberto Louise M.D.
[2022-02-19 10:30] LABS: Glucose Point of Care 182 mg/dl (65-105)
[2022-02-19] MEDS: HYDROcodone/acetaminophen (*CRX) 5-325 MG TABLET 1 TAB PO (10:49)
[2022-02-19 11:27] LABS: Glucose Point of Care 162 mg/dl (65-105)
[2022-02-19 12:44] LABS: Anion Gap 4 mmol/L (8-16); Blood Urea Nitrogen 33 mg/dL (7-17); Calcium 9.9 mg/dL (8.4-10.2); Carbon Dioxide 25 mmol/L (22-30); Chloride 113 mmol/L (98-107); Estimated Glomerular Filt Rate > 60; Glucose 152 mg/dL (65-110); Potassium 3.4 mmol/L (3.4-5.0); Sodium 142 mmol/L (137-145)
[2022-02-19 12:55] LABS: Glucose Point of Care 131 mg/dl (65-105)
[2022-02-19 13:48] LABS: Glucose Point of Care 113 mg/dl (65-105)
[2022-02-19 14:52] LABS: Glucose Point of Care 110 mg/dl (65-105)
[2022-02-19] MEDS: INSULIN GLARGINE (*BKC) 100 UNITS/ML 35 UNITS SUB-Q (15:03)
[2022-02-19] MEDS: POTASSIUM CHLORIDE 20 MEQ PACKET (FOR LIQUID) 40 MEQ PO (15:04)
[2022-02-19] MEDS: KCL 20 MEQ/0.45% NS 1,000 ML 100 ML IV CONT (16:25)
[2022-02-19 16:39] LABS: Glucose Point of Care 112 mg/dl (65-105)
[2022-02-19 18:19] LABS: Anion Gap 5 mmol/L (8-16); Blood Urea Nitrogen 30 mg/dL (7-17); Calcium 9.7 mg/dL (8.4-10.2); Carbon Dioxide 22 mmol/L (22-30); Chloride 117 mmol/L (98-107); Estimated Glomerular Filt Rate > 60; Glucose 129 mg/dL (65-110); Potassium 4.8 mmol/L (3.4-5.0); Sodium 144 mmol/L (137-145)
[2022-02-19 20:28] LABS: Glucose Point of Care 176 mg/dl (65-105)
[2022-02-19] MEDS: CENTRAL LINE FLUSH 10 ML IV PUSH (22:00)
[2022-02-20] VITALS (13 sets, daily range): BP systolic 83–134; BP diastolic 57–76; PULSE 68–108; RESP 12–28; TEMP 36.9–37.5; O2SAT 95–100
[2022-02-20 02:31] LABS: Glucose Point of Care 240 mg/dl (65-105)
[2022-02-20] MEDS: INSULIN ASPART (*BKC) 100 UNITS/ML SUB-Q ×2 (02:33→17:18)
[2022-02-20] MEDS: KCL 20 MEQ/0.45% NS 1,000 ML 100 ML IV CONT (02:34)
[2022-02-20 04:40] LABS: Glucose Point of Care 158 mg/dl (65-105)
[2022-02-20 06:12] LABS: Hematocrit 25.5 % (37.0-47.0); Hemoglobin 7.8 g/dL (12.0-15.0); Mean Corpuscular HGB Conc 30.6 g/dl (32-36); Mean Corpuscular Volume 101.2 fl (80-100); Platelet Count Result 243 k/mm3 (150-375); Red Blood Count 2.52 M/mm3 (4.2-5.4); Red Cell Distribution Width 15.2 % (11.5-14.5); White Blood Count 5.2 K/mm3 (4.5-10.0)
[2022-02-20 06:23] LABS: Alanine Aminotransferase 55 U/L (6-35); Albumin Level 2.7 g/dL (3.5-5.1); Alkaline Phosphatase 245 U/L (38-126); Anion Gap 4 mmol/L (8-16); Aspartate Amino Transferase 134 U/L (14-36); Bilirubin,Total 0.2 mg/dL (0.2-1.3); Blood Urea Nitrogen 20 mg/dL (7-17); Calcium 9.3 mg/dL (8.4-10.2); Carbon Dioxide 21 mmol/L (22-30); Chloride 112 mmol/L (98-107); Estimated Glomerular Filt Rate > 60; Glucose 189 mg/dL (65-110); Magnesium 2.2 mg/dL (1.6-2.3); Phosphorus 1.9 mg/dL (2.5-4.5); Potassium 3.9 mmol/L (3.4-5.0); Sodium 137 mmol/L (137-145)
[2022-02-20 08:14] LABS: Glucose Point of Care 211 mg/dl (65-105)
[2022-02-20] MEDS: APIXABAN 5 MG TABLET PO ×2 (09:01→21:39)
[2022-02-20] MEDS: SODIUM PHOSPHATE 20 MM in DEXTROSE 5% IN WATER 250 ML 50 MM IVPB (09:01)
[2022-02-20] MEDS: CENTRAL LINE FLUSH 10 ML IV PUSH ×3 (09:02→21:40)
--- NOTE | 2022-02-20 09:53 | WPDINTPN ---
Progress Note: A&P Assessment and Plan (1) Diabetic ketoacidosis: Code(s): E11.10 - Type 2 diabetes mellitus with ketoacidosis without coma Status: Acute Assessment and Plan: Recurrent DKA secondary to noncompliance with insulin Patient was given IVF bolus in ER and and started on infusion IV fluids She was also started on Insulin infusion and Q1H glucose monitoring which will be continued Serial labs were performed Her anion gap has closed now and she has been transitioned to subcutaneous insulin Diabetic diet Asymptomatic (2) Hyperkalemia: Code(s): E87.5 - Hyperkalemia Status: Acute Assessment and Plan: Secondary to acidosis Resolved with IV fluids and insulin Monitor (3) Encephalopathy: Code(s): G93.40 - Encephalopathy, unspecified Status: Acute Assessment and Plan: Metabolic encephalopathy secondary to DKA head CT negative She is alert awake and AO x3 now Monitor (4) SIRS (systemic inflammatory response syndrome): Code(s): R65.10 - Systemic inflammatory response syndrome (SIRS) of non-infectious origin without acute organ dysfunction Status: Acute Assessment and Plan: Secondary to DKA WBC normal Chest x-ray, UA negative Not on any antibiotics Monitor (5) Dehydration: Code(s): E86.0 - Dehydration Status: Acute Assessment and Plan: Improved with IV fluids Continue (6) Electrolyte abnormality: Code(s): E87.8 - Other disorders of electrolyte and fluid balance, not elsewhere classified Status: Acute Assessment and Plan: Phosphate is low and replacement has been ordered Plan DVT prophylaxis -patient has been switched back to Eliquis Nutrition -diabetic diet Code Status - Full Code Discontinue Grace Incentive spirometry, up in chair, PT OT Transfer out of ICU today Subjective Date/time seen: 02/20/22 She states she feels good and denies any specific complaints today. She states she did not eat dinner because she did feel like it but this morning she feels hungry and would like to eat breakfast. Patient denies fever, chest pain, shortness of breath, cough, nausea vomiting, abdominal pain,, diarrhea, headache or constipation. All other systems were reviewed and were negative She is on room air Other vital signs stable She has adequate urine output Review of Systems Review of Systems: All systems reviewed & are unremarkable except as noted in HPI and below (Subjective) Exam Narrative: General: Pt is alert awake and in NAD Lungs/Chest: Trachea central Clear BS B/L, No crackles or wheezing. Cardiac: RRR. Normal S1 S2. No murmurs Circulation: Pedal pulses are intact and symmetrical. Abdomen: Normal bowel sounds.. Soft. NT. ND. Extremities: No clubbing, cyanosis or edema. Warm : Grace in place Neurologic: Follows commands. Moves all 4 extremities PERRL Skin: No Rash Objective Data Vital Signs Vital Signs: Vital Signs - 24 hr 02/19/22 10:00 02/19/22 10:00 02/19/22 11:48 Temperature 37.0 C Pulse Rate 99 99 Respiratory Rate 18 Blood Pressure 113/61 Pulse Oximetry 97 99 Oxygen Delivery Room Air 02/19/22 12:00 02/19/22 12:00 02/19/22 14:00 Temperature 36.5 C Pulse Rate 78 78 80 Respiratory Rate 19 Blood Pressure 105/58 L Pulse Oximetry 99 Oxygen Delivery 02/19/22 14:00 02/19/22 15:57 02/19/22 16:00 Temperature 37.3 C Pulse Rate 80 85 Respiratory Rate 15 14 Blood Pressure 110/58 L 105/61 Pulse Oximetry 99 99 99 Oxygen Delivery Room Air 02/19/22 16:00 02/19/22 18:00 02/19/22 18:00 Temperature 37.4 C Pulse Rate 82 93 93 Respiratory Rate 16 Blood Pressure 104/66 Pulse Oximetry 99 Oxygen Delivery 02/19/22 20:00 02/19/22 20:00 02/19/22 22:00 Temperature Pulse Rate 98 73 Respiratory Rate Blood Pressure Pulse Oximetry Oxygen Delivery Room Air 02/19/22 20:00 02/19/22 22:00 02/20/22 01:00 Temp
[2022-02-20 11:36] LABS: Glucose Point of Care 198 mg/dl (65-105)
--- NOTE | 2022-02-20 16:05 | PC.NURSE ---
This patient, Karly Leslie, was received from ICU-5on 02/20/22 at 1605. Patient/family oriented to unit policies and routines
--- NOTE | 2022-02-20 16:07 | PC.NURSE ---
This patient, Karly Leslie, was transferred to [facility] on 02/20/22 at 1607. Personal belongings sent with patient. Report given to Jesica. Appropriate documentation sent with patient.
[2022-02-20 17:20] LABS: Glucose Point of Care 337 mg/dl (65-105)
[2022-02-20 21:09] LABS: Glucose Point of Care 271 mg/dl (65-105)
[2022-02-20] MEDS: HYDROcodone/acetaminophen (*CRX) 5-325 MG TABLET 1 TAB PO (21:39)
[2022-02-20] MEDS: INSULIN GLARGINE (*BKC) 100 UNITS/ML 35 UNITS SUB-Q (21:40)
[2022-02-21] VITALS (9 sets, daily range): BP systolic 94–109; BP diastolic 51–59; PULSE 60–80; RESP 12–18; TEMP 35.6–37.1; O2SAT 97–100
[2022-02-21 05:39] LABS: Hematocrit 26.4 % (37.0-47.0); Hemoglobin 8.5 g/dL (12.0-15.0); Mean Corpuscular HGB Conc 32.2 g/dl (32-36); Mean Corpuscular Hemoglobin 31.4 pg (26-34); Mean Corpuscular Volume 97.4 fl (80-100); Mean Platelet Volume 8.9 fl (7.4-10.4); Platelet Count Result 274 k/mm3 (150-375); Red Blood Count 2.71 M/mm3 (4.2-5.4); Red Cell Distribution Width 15.1 % (11.5-14.5); White Blood Count 4.8 K/mm3 (4.5-10.0)
[2022-02-21 05:59] LABS: Alanine Aminotransferase 68 U/L (6-35); Albumin Level 1.6 g/dL (3.5-5.1); Alkaline Phosphatase 204 U/L (38-126); Anion Gap -1 mmol/L (8-16); Aspartate Amino Transferase 115 U/L (14-36); Bilirubin,Total 0.1 mg/dL (0.2-1.3); Blood Urea Nitrogen 7 mg/dL (7-17); Calcium 5.9 mg/dL (8.4-10.2); Carbon Dioxide 18 mmol/L (22-30); Chloride 117 mmol/L (98-107); Estimated Glomerular Filt Rate > 60; Glucose 127 mg/dL (65-110); Magnesium 1.4 mg/dL (1.6-2.3); Potassium 2.6 mmol/L (3.4-5.0); Sodium 134 mmol/L (137-145)
[2022-02-21 06:28] LABS: Glucose Point of Care 149 mg/dl (65-105)
[2022-02-21] MEDS: MAGNESIUM SULF 4 GM/WATER100ML 4 GM/100 ML BAG IVPB (06:45)
[2022-02-21] MEDS: CENTRAL LINE FLUSH 10 ML IV PUSH ×3 (06:45→20:49)
[2022-02-21] MEDS: POTASSIUM CHLORIDE 20 MEQ TABLET 80 MEQ PO (06:45)
[2022-02-21] MEDS: POTASSIUM PHOS,M-BASIC-D-BASIC 40 MMOL in SODIUM CHLORIDE 0.9% IV 250 ML 43.89 MMOL IVPB (08:01)
[2022-02-21] MEDS: APIXABAN 5 MG TABLET PO ×2 (08:02→20:49)
[2022-02-21 08:18] LABS: Glucose Point of Care 162 mg/dl (65-105)
[2022-02-21] MEDS: POTASSIUM CHLORIDE 20 MEQ TABLET 40 MEQ PO (10:18)
--- NOTE | 2022-02-21 12:19 | PM.IMPN ---
Progress Note: A&P Assessment and Plan (1) Diabetic ketoacidosis: Code(s): E11.10 - Type 2 diabetes mellitus with ketoacidosis without coma Status: Acute Assessment and Plan: Recurrent DKA secondary to noncompliance with insulin Patient was given IVF bolus in ER and and started on infusion IV fluids She was also started on Insulin infusion and Q1H glucose monitoring which will be continued Serial labs were performed Her anion gap has closed now and she has been transitioned to subcutaneous insulin Diabetic diet Asymptomatic (2) Hyperkalemia: Code(s): E87.5 - Hyperkalemia Status: Acute Assessment and Plan: Now with hypokalemia. Will replace and monitor. (3) Encephalopathy: Code(s): G93.40 - Encephalopathy, unspecified Status: Acute Assessment and Plan: Metabolic encephalopathy secondary to DKA head CT negative She is alert awake and AO x3 now Monitor (4) SIRS (systemic inflammatory response syndrome): Code(s): R65.10 - Systemic inflammatory response syndrome (SIRS) of non-infectious origin without acute organ dysfunction Status: Acute Assessment and Plan: Secondary to DKA WBC normal Chest x-ray, UA negative Not on any antibiotics Monitor (5) Dehydration: Code(s): E86.0 - Dehydration Status: Acute Assessment and Plan: Improved with IV fluids Continue (6) Electrolyte abnormality: Code(s): E87.8 - Other disorders of electrolyte and fluid balance, not elsewhere classified Status: Acute Assessment and Plan: Phosphate is low and replacement has been ordered Plan DVT prophylaxis -patient has been switched back to Eliquis Nutrition -diabetic diet Code Status - Full Code Discontinue Grace Incentive spirometry, up in chair, PT OT Transfer out of ICU today Subjective Date/time seen: 02/21/22 12:19 No new complaints Exam Narrative: General: Pt is alert awake and in NAD Lungs/Chest: Trachea central Clear BS B/L, No crackles or wheezing. Cardiac: RRR. Normal S1 S2. No murmurs Circulation: Pedal pulses are intact and symmetrical. Abdomen: Normal bowel sounds.. Soft. NT. ND. Extremities: No clubbing, cyanosis or edema. Warm : Grace in place Neurologic: Follows commands. Moves all 4 extremities PERRL Skin: No Rash Objective Data Vital Signs Vital Signs: Vital Signs - 24 hr 02/20/22 14:00 02/20/22 16:00 02/20/22 16:00 Temperature 99.1 F Pulse Rate 100 98 98 Respiratory Rate 17 Blood Pressure 116/70 Pulse Oximetry 97 Oxygen Delivery 02/20/22 16:15 02/20/22 21:41 02/20/22 20:00 Temperature 99.3 F Pulse Rate 71 Respiratory Rate 12 Blood Pressure 97/57 L Pulse Oximetry 97 Oxygen Delivery Room Air Room Air 02/20/22 20:00 02/21/22 00:00 02/21/22 06:00 Temperature 98.7 F Pulse Rate 70 62 65 Respiratory Rate 12 Blood Pressure 95/59 L Pulse Oximetry 97 Oxygen Delivery 02/21/22 04:00 02/21/22 08:30 Temperature Pulse Rate 70 80 Respiratory Rate Blood Pressure Pulse Oximetry Oxygen Delivery Intake/Output Intake/Output: Intake & Output 02/18/22 02/19/22 02/20/22 02/21/22 23:59 23:59 23:59 23:59 Intake Total 3000 1537 2000 830 Output Total 1999 850 300 Balance 3000 -463 1150 530 Meds/Results Medications: Active Medications Generic Name Dose Route Start Last Admin Trade Name Freq PRN Reason Stop Dose Admin Hydrocodone Bitart/Acetaminophen 1 tab 02/19/22 10:41 02/20/22 21:39 Hydrocodone/Acetaminophen (*Crx) 5-325 Mg Tablet PO 1 tab Q4H PRN Administration Pain Rated 4-6 Apixaban 5 mg 02/20/22 09:00 02/21/22 08:02 Apixaban 5 Mg Tablet PO 5 mg Q12HR DANIEL Administration Dextrose 12.5 gm 02/18/22 21:08 Dextrose 50% 25 Gm/50 Ml Syringe IV PUSH PRN PRN Hypoglycemia Protocol Glucagon 1 mg 02/18/22 21:08 Glucagon For Inj 1 Mg Vial IM PRN PRN Hypoglycemia
[2022-02-21 12:31] LABS: Glucose Point of Care 212 mg/dl (65-105)
[2022-02-21] MEDS: INSULIN ASPART (*BKC) 100 UNITS/ML SUB-Q ×2 (13:57→17:05)
[2022-02-21 16:58] LABS: Glucose Point of Care 290 mg/dl (65-105)
[2022-02-21] MEDS: HYDROcodone/acetaminophen (*CRX) 5-325 MG TABLET 1 TAB PO (18:39)
[2022-02-21] MEDS: INSULIN GLARGINE (*BKC) 100 UNITS/ML 35 UNITS SUB-Q (20:49)
[2022-02-21 21:14] LABS: Anion Gap 2 mmol/L (8-16); Blood Urea Nitrogen 12 mg/dL (7-17); Calcium 8.5 mg/dL (8.4-10.2); Carbon Dioxide 24 mmol/L (22-30); Chloride 108 mmol/L (98-107); Estimated Glomerular Filt Rate > 60; Glucose 256 mg/dL (65-110); Potassium 5.2 mmol/L (3.4-5.0); Sodium 134 mmol/L (137-145)
[2022-02-22 02:34] LABS: Glucose Point of Care 267 mg/dl (65-105)
[2022-02-22 04:00] VITALS: PULSE 61
[2022-02-22 05:10] LABS: Hematocrit 27.3 % (37.0-47.0); Hemoglobin 8.4 g/dL (12.0-15.0); Mean Corpuscular HGB Conc 30.8 g/dl (32-36); Mean Corpuscular Hemoglobin 31.3 pg (26-34); Mean Corpuscular Volume 101.9 fl (80-100); Platelet Count Result 276 k/mm3 (150-375); Red Blood Count 2.68 M/mm3 (4.2-5.4); Red Cell Distribution Width 15.3 % (11.5-14.5); White Blood Count 4.9 K/mm3 (4.5-10.0)
[2022-02-22 05:27] LABS: Alanine Aminotransferase 76 U/L (6-35); Albumin Level 2.6 g/dL (3.5-5.1); Alkaline Phosphatase 303 U/L (38-126); Anion Gap 1 mmol/L (8-16); Aspartate Amino Transferase 65 U/L (14-36); Bilirubin,Total 0.3 mg/dL (0.2-1.3); Blood Urea Nitrogen 8 mg/dL (7-17); Carbon Dioxide 27 mmol/L (22-30); Chloride 108 mmol/L (98-107); Estimated Glomerular Filt Rate > 60; Glucose 149 mg/dL (65-110); Magnesium 2.5 mg/dL (1.6-2.3); Phosphorus 2.9 mg/dL (2.5-4.5); Potassium 4.2 mmol/L (3.4-5.0); Sodium 136 mmol/L (137-145)
[2022-02-22 06:00] VITALS: BP 124/76; PULSE 70; RESP 16; TEMP 36.3; O2SAT 96
[2022-02-22 08:00] VITALS: PULSE 60
[2022-02-22 08:31] LABS: Glucose Point of Care 75 mg/dl (65-105)
[2022-02-22] MEDS: APIXABAN 5 MG TABLET PO (08:52)
[2022-02-22] MEDS: CENTRAL LINE FLUSH 10 ML IV PUSH (08:53)
--- NOTE | 2022-02-22 10:40 | PM.DS ---
DS: Admitting Diagnosis Discharge Date February 22, 2022 Admitting Diagnosis DKA DS: Discharge Diagnosis Discharge Diagnosis (1) Diabetic ketoacidosis: Code(s): E11.10 - Type 2 diabetes mellitus with ketoacidosis without coma Status: Acute Assessment and Plan: Recurrent DKA secondary to noncompliance with insulin Patient was given IVF bolus in ER and and started on infusion IV fluids She was also started on Insulin infusion and Q1H glucose monitoring which will be continued Serial labs were performed Her anion gap has closed now and she has been transitioned to subcutaneous insulin Diabetic diet Asymptomatic (2) Hyperkalemia: Code(s): E87.5 - Hyperkalemia Status: Acute Assessment and Plan: Now with hypokalemia. Will replace and monitor. (3) Encephalopathy: Code(s): G93.40 - Encephalopathy, unspecified Status: Acute Assessment and Plan: Metabolic encephalopathy secondary to DKA head CT negative She is alert awake and AO x3 now Monitor (4) SIRS (systemic inflammatory response syndrome): Code(s): R65.10 - Systemic inflammatory response syndrome (SIRS) of non-infectious origin without acute organ dysfunction Status: Acute Assessment and Plan: Secondary to DKA WBC normal Chest x-ray, UA negative Not on any antibiotics Monitor (5) Dehydration: Code(s): E86.0 - Dehydration Status: Acute Assessment and Plan: Improved with IV fluids Continue (6) Electrolyte abnormality: Code(s): E87.8 - Other disorders of electrolyte and fluid balance, not elsewhere classified Status: Acute Assessment and Plan: Phosphate is low and replacement has been ordered Plan DVT prophylaxis -patient has been switched back to Eliquis Nutrition -diabetic diet Code Status - Full Code Discontinue Grace Incentive spirometry, up in chair, PT OT Transfer out of ICU today DS: Summary Hospital Course Hospital Course: Patient was admitted for DKA. Blood sugar is much improved. Be discharged. Resume medications Time Spent with Patient Time attestation: Total time spent providing and/or coordinating discharge services: Exam Narrative: General: Pt is alert awake and in NAD Lungs/Chest: Trachea central Clear BS B/L, No crackles or wheezing. Cardiac: RRR. Normal S1 S2. No murmurs Circulation: Pedal pulses are intact and symmetrical. Abdomen: Normal bowel sounds.. Soft. NT. ND. Extremities: No clubbing, cyanosis or edema. Warm : Grace in place Neurologic: Follows commands. Moves all 4 extremities PERRL Skin: No Rash Const: Other: Ill-appearing female in the semi-Trevino position in bed. Weight: 59.9 kilograms. HENMT: Other: Normocephalic, atraumatic. Nares pain bilaterally. Tacky mucous membranes. Eyes: Other: Pupils are reactive. Extraocular motions intact. Sclerae anicteric. Conjunctiva mildly injected. Neck: Other: Supple. No midline vertebral tenderness. No nuchal rigidity. Resp: Other: Demonstrates Kussmaul respirations. Lungs are clear to auscultation. Cardio: Other: Tachycardic with S1-S2. GI: Other: Abdomen is soft, nontender, nondistended with positive bowel sounds. Skin: Other: Warm and dry. Neuro: Other: Alert and oriented x3 although she seems confused and she is seeing cats in the room. Cranial nerves 2-12 grossly intact. She is generally weak without focal findings. Gait appeared stable when she got herself out of bed and urinated on the floor. Extrem: Other: No cyanosis, clubbing, or edema. Peripheral pulses palpable. Psych: Other: Cooperative. Seems confused and demonstrates odd behavior. DS: Data Data Completed and Pending Labs on day of discharge: Labs from last 24 hours 02/22/22 02/22/22 02/22/22 08:23 04:55 04:55 WBC 4.9 RBC 2.68 L Hgb 8.4 L Hct 27.3 L MCV 101.9 H MCH 31.3 MCHC 30.8 L RDW 15.3 H Plt Count 276 MPV 9.0 Sod
[2022-02-22 12:10] LABS: Glucose Point of Care 190 mg/dl (65-105)
== END 2022-02-22 12:30 | disposition home or self-care (01) | DRG 637 ==
LOC: ANHED 21:05 → ANHICU 02-19 02:13 → ANH3MEDSUR 02-21 08:08 → ANHICU 02-23 13:15
PROVIDERS: Internal Medicine; Physician Assistant; Admitting Provider Internal Medicine; Emergency Provider Emergency Medicine; PCP Family Medicine; Visit Provider Chiropractor
DX: E11.10 Type 2 diabetes mellitus with ketoacidosis without coma (principal); G93.41 Metabolic encephalopathy; R65.10 Systemic inflammatory response syndrome (SIRS) of non-infectious origin without acute organ dysfunction; E87.5 Hyperkalemia; E11.42 Type 2 diabetes mellitus with diabetic polyneuropathy; E86.0 Dehydration; E03.9 Hypothyroidism, unspecified; E78.5 Hyperlipidemia, unspecified; I10 Essential (primary) hypertension; M79.7 Fibromyalgia; G25.81 Restless legs syndrome; F32.A Depression, unspecified; Z20.822 Contact with and (suspected) exposure to COVID-19; Z79.4 Long term (current) use of insulin; Z85.43 Personal history of malignant neoplasm of ovary; Z78.9 Other specified health status; Z91.199 Patient's noncompliance with other medical treatment and regimen due to unspecified reason
CPT/HCPCS: 36415; 36569; 36600; 51701; 70450; 71045; 80048; 80053; 81001; 82010; 82375; 82805; 82947; 82948; 83036; 83050; 83605; 83735; 84100; 85025; 85027; 87040; 87636; 93005; 96360; 97161; 97165; 99291; A9270; C1751; J1650; J1815; J2405; J3475; J3480; J7030; J7050; J7060

== ENCOUNTER 2022-03-04 16:13 | Inpatient (IN) | payer MEDICARE, OTHER, SELFPAY ==
[2022-03-04] VITALS (29 sets, daily range): BP systolic 112–171; BP diastolic 60–110; PULSE 83–127; RESP 22–30; TEMP 36.3–36.8; O2SAT 77–100; BMI 24.0
--- NOTE | ~2022-03-04 | XR_ITS ---
XR chest 1V portable 03/04/2022 18:26 Indication: Tachypnea and dizziness. Procedure: AP portable chest Comparison: 02/19/2022 Findings: There are hazy diffuse bilateral infiltrates with peribronchial thickening. No pleural effu nguyen. Cardiomegaly. No pneumothorax. No acute osseous abnormality. There is scoliosis. Impression: 1: Diffuse hazy bilateral airspace disease which may represent edema or pneumonia. Reviewed, dictated and finalized at location A. [employer] SUPERVISOR Impression: 1: Diffuse hazy bilateral airspace disease which may represent edema or pneumon ia.
--- NOTE | 2022-03-04 16:26 | ECG_ITS ---
Measurements Intervals [place] Rate: 99 P: 54 MD: 162 QRS: 22 QRSD: 95 T: 18 QT: 328 QTc: 423 Interpretive Statements SINUS RHYTHM VENTRICULAR PREMATURE COMPLEXES LEFT ATRIAL ENLARGEMENT NONSPECIFIC ST & T-WAVE ABNORMALITY- ANTEROLAT/INF LEADS BASELINE WANDER- I, II, AVR, AVL, AVF, V3-V6 BORDERLINE ECG COMPARED TO ECG 02/19/2022 10:18:09 NO SIGNIFICANT CHANGES Electronically Signed On 03-04-2022 16:45:12 BILINGUAL SPEECH LANGUAGE PATHOLOGIST by Unruly Panchal D.O.
[2022-03-04 16:29] LABS: Glucose Point of Care > 500 mg/dl (65-105)
--- NOTE | 2022-03-04 16:35 | ED.RECABL ---
HPI - Recheck/Abnormal Lab/Rx General Chief Complaint: Recheck/Abnormal Lab/Rx Stated Complaint: sob , released 4 days ago with dka Time Seen by Provider: 03/04/22 16:20 History of Present Illness HPI narrative: Patient is a 71-year-old female with a history of diabetes with multiple episodes of DKA presenting with generalized weakness. Patient was discharged from this facility about a week and a half ago after being admitted for DKA. She was discharged home. Patient states that over the last several days she has been increasingly weak and has not gotten out of bed. States that her neighbor came to check on her today and was concerned so called EMS. Patient states that she has been nauseated and has had a couple episodes of diarrhea. States that she does have some chest discomfort and a mild headache. No fevers or chills, cough, abdominal pain, dysuria. Related Data Home Medications Medication Instructions Recorded Confirmed pramipexole 1.5 mg tablet 3 mg PO HS 12/22/21 03/05/22 insulin aspart U-100 100 unit/mL 1 sliding scale dose subcut 01/04/22 03/05/22 subcutaneous solution (Novolog TIDWMEAL U-100 Insulin aspart) insulin glargine 100 unit/mL 35 unit subcut HS 01/28/22 03/05/22 subcutaneous solution (Lantus U-100 Insulin) Allergies Allergy/AdvReac Type Severity Reaction Status Date / Time banana Allergy Severe SEVERE Verified 03/02/22 07:43 HIVES acetaminophen [From Tylenol] AdvReac Intermediate Nausea and Verified 03/02/22 07:43 Vomiting aspirin AdvReac Intermediate Nausea and Verified 03/02/22 07:43 Vomiting fluoxetine [From Prozac] AdvReac Hallucinati Verified 03/02/22 07:43 ng Review of Systems Review of Systems: All systems reviewed & are unremarkable except as noted in HPI and below PMFSH Past Medical History Medical History Depression Diabetic peripheral neuropathy Fibromyalgia Hypothyroidism Memory change Ovarian cancer At the age of 33, status post hysterectomy. Patient states that half an ovary was left during surgery. She required no further treatment. Pneumonia due to COVID-19 virus (09/2020) Restless leg syndrome Shingles Type 2 diabetes mellitus Hemoglobin A1c was > 14% August 2021 C-peptide 0.63. Surgical History Surgical History History of tonsillectomy (1970) History of total hysterectomy with bilateral salpingo-oophorectomy (BSO) (1983) History of tubal ligation (1983) Family History Family History Grandparent Family history of premature coronary heart disease, Onset Age: 64 Father Family history of respiratory disorder, Onset Age: 87 Family history of cardiovascular disease Patient's father is Family history of Alzheimer's disease Cerebrovascular accident Mother Family history of primary malignant neoplasm of liver, Onset Age: 64 Family history of malignant neoplasm Patient's mother is , Onset Age: 64 Family history of malignant neoplasm of breast in first degree relative Sibling Heart attack Sibling Heart attack Social History Social History Social History: The patient is . She lives in her own home in [place], [place]. Her daughter Mary used to live with her but it does not sound as though she does any longer, unclear. She has 2 daughters, and designates her daughter Jose Posey, as her surrogate decision maker. She is a lifelong nonsmoker. She drinks perhaps 4-12 alcoholic beverages a week. No drug use. The patient tells me that she does not drink anymore. Code status: Full code. Smoking status: Never smoker Alcohol intake: current Other substance usage details: per ER note 4-12 drinks per week Lack of Transportation: No Lack of Food: Never True Current Housing: [facility]
[2022-03-04 16:52] LABS: Add Urine Microscopic? YES; Appearance Urine Clear (Clear); Bilirubin Urine Negative (Negative); Blood Urine 2+ (Negative); Color Urine Yellow (Yellow); Glucose Urine UA 2+ mg/dL (Negative); Ketones Urine 3+ mg/dL (Negative); Leukocyte Esterase Ur Negative LEU/UL (Negative); Nitrate Urine Negative (Negative); Protein Urine Negative (Negative); Specific Grav Ur 1.025 (1.001-1.035); Urobilinogen Urine 0.2 mg/dL (<2.0)
[2022-03-04 16:53] LABS: Alveolar/Arterial O2 Gradient 12.3 mmHg; Base Excess ABG -24.3 mEq/l (+/-2.0); Fractional Inspired Oxygen 21 %; HCO3 ABG 3.5 mEq/l (22.0-26.0); Oxygen Content ABG 16.5 %vol (16.0-22.0); Oxygen Saturation ABG 97.1 % (95.0-100.0); Oxyhemoglobin 95.9 % THb (90.0-100.0); PO2 ABG 122.8 mmHg (80.0-100.0); PO2 FiO2 Ratio Arterial Blood 5.85 %; Total Hemoglobin 12.1 g/dL (12.0-18.0)
[2022-03-04 16:54] LABS: Device ROOM AIR; PCO2 ABG 12.2 mmHg (35.0-45.0); Site Drawn LEFT BRACHIAL; pH ABG 7.081 (7.350-7.450)
[2022-03-04 16:54] LABS: Bacteria Urine Trace /hpf; Mucus Urine Rare /lpf; Squamous Epithelial Cell Urine Rare /hpf (Few)
[2022-03-04] MEDS: SODIUM CHLORIDE 0.9% IV 1,000 ML 999 ML IV CONT ×2 (17:13→18:23)
[2022-03-04 17:18] LABS: Basophils Absolute Auto 0.1 K/mm3 (0.0-0.1); Basophils Percent Auto 0.4 % (0.2-1.2); Eosinophils Percent Auto 0.1 % (0-4.4); Hematocrit 38.8 % (37.0-47.0); Hemoglobin 11.2 g/dL (12.0-15.0); Immature Granulocyte Absolute 0.18 K/mm3 (0.00-0.031); Lymphocytes Absolute Auto 1.51 K/mm3 (0.9-3.2); Lymphocytes Percent Auto 8.5 % (18.3-44.2); Mean Corpuscular HGB Conc 28.9 g/dl (32-36); Mean Corpuscular Volume 107.5 fl (80-100); Monocytes Absolute Auto 0.7 K/mm3 (0.1-0.6); Monocytes Percent Auto 4.1 % (2.6-8.5); Neutrophils Absolute Auto 15.2 K/mm3 (1.3-6.7); Neutrophils Percent Auto 85.9 % (45.5-73.1); Platelet Count Result 599 k/mm3 (150-375); Red Blood Count 3.61 M/mm3 (4.2-5.4); Red Cell Distribution Width 15.1 % (11.5-14.5); White Blood Count 17.7 K/mm3 (4.5-10.0)
[2022-03-04 17:28] LABS: Lactic Acid Reflex 2.2 mmol/L (0.7-2.0)
[2022-03-04 17:37] LABS: Alanine Aminotransferase 28 U/L (6-35); Albumin Level 4.3 g/dL (3.5-5.1); Alkaline Phosphatase 314 U/L (38-126); Aspartate Amino Transferase 22 U/L (14-36); Bilirubin,Total 0.3 mg/dL (0.2-1.3); Blood Urea Nitrogen 13 mg/dL (7-17); Calcium 10.2 mg/dL (8.4-10.2); Carbon Dioxide < 5 mmol/L (22-30); Chloride 95 mmol/L (98-107); Estimated CRCL calculation 41 ml/min; Estimated Glomerular Filt Rate > 60; Glucose 769 mg/dL (65-110); Magnesium 2.4 mg/dL (1.6-2.3); Phosphorus 6.3 mg/dL (2.5-4.5); Potassium 5.2 mmol/L (3.4-5.0); Sodium 133 mmol/L (137-145)
[2022-03-04 17:41] LABS: Lipase 121 U/L (23-300)
[2022-03-04 17:54] LABS: Troponin I < 0.012 ng/mL (0.000-0.034)
[2022-03-04 18:06] LABS: Influenza A QL RT-PCR Negative (Negative); Influenza B QL RT-PCR Negative (Negative); SARS-CoV-2 RNA PCR Negative
[2022-03-04] MEDS: INSULIN HUMAN REGULAR (*BKC) 100 UNITS/ML IV PUSH (18:23)
[2022-03-04 18:29] LABS: Glucose Point of Care > 500 mg/dl (65-105)
--- NOTE | 2022-03-04 19:15 | PC.NURSE ---
assumed care. pt with tachypnea and confusion. awaiting results of bmp in order to initiate insulin drip per previous. previous nurse states that was unable to obtain ultrasound IV. Lesley BROWN at bedside and states she will place central line
--- NOTE | 2022-03-04 19:33 | PM.IMHP ---
H&P: HPI History of Present Illness Date/Time: 03/04/22 19:33 Chief Complaint: Shortness of breath Narrative: This is a 71-year-old female patient who has a history of diabetes poorly controlled. She has had multiple episodes of DKA. The patient was last discharged from the hospital on 02/22/2022 with DKA. Most admissions are due to noncompliance with insulin. Her white count is 17.7. On the arterial blood gases are pH was 7.081 CO2 was 12.2 PO2 122.8. Bicarb is 3.5. Sodium is 136. Glucose 816. Last A1c on 02/18/2022 was 14.0 and has been for 14.0 for several months. Lactic acid is 2.2. Her b hob is 16.8. She is negative for influenza A/B and COVID. The patient was given 2 L of normal saline bolus IV insulin. She was started on cefepime and vancomycin. Chest x-ray was read as diffuse hazy bilateral airspace disease which may represent edema or pneumonia. After personally reviewing the chest x-ray myself it looks more like haziness like possibly fluid. However she does have an elevated white count therefore antibiotics were started. It was difficult to find IV access on the patient she has multiple IVs. Therefore central line was placed. Entry Processor has been consulted and agreed to consult on the patient. The patient is being admitted to inpatient status on the date of service of 03/04/2022. Review of Systems Review of Systems: HPI All systems reviewed & are unremarkable except as noted in HPI and below Constitutional: Constitutional: Reports as per HPI and Reports no additional constitutional complaints Eyes: Eyes: Reports as per HPI and Reports no additional eye complaints ENT: Reports system reviewed and no additional complaints, except as documented and Reports Normal hearing present Cardiovascular: Cardiovascular: Reports no additional cardiovascular complaints Respiratory: Respiratory: Reports no additional respiratory complaints and Reports no additional respiratory complaints Gastrointestinal: Gastrointestinal: Reports as per HPI and Reports no additional gastrointestinal complaints Musculoskeletal: Musculoskeletal: Reports no additional musculoskeletal complaints Integumentary/Breasts: Skin/Breast: Reports system reviewed and no additional complaints, except as docu and Reports as per HPI Neurologic: Reports system reviewed and no additional complaints, except as documented, Reports as per HPI and Reports Normal hearing present Psychiatric: Psychiatric: Reports no additional psychiatric complaints and Reports as per HPI Endocrine: Endocrine: Reports no additional endocrine complaints Hematologic/Lymphatic: Hematologic/Lymphatic: Reports no additional hematologic/lymphatic complaints Allergic/Immunologic: Allergic/Immunologic: Reports no additional allergic/immunologic complaints [facility] Past Medical History Medical History Depression Diabetic peripheral neuropathy Fibromyalgia Hypothyroidism Memory change Ovarian cancer At the age of 33, status post hysterectomy. Patient states that half an ovary was left during surgery. She required no further treatment. Pneumonia due to COVID-19 virus (09/2020) Restless leg syndrome Shingles Type 2 diabetes mellitus Hemoglobin A1c was > 14% August 2021 C-peptide 0.63. Surgical History Surgical History History of tonsillectomy (1970) History of total hysterectomy with bilateral salpingo-oophorectomy (BSO) (1983) History of tubal ligation (1983) Family History Family History Grandparent Family history of premature coronary heart disease, Onset Age: 64 Father Family history of respiratory disorder, Onset Age: 87 Family history of cardiovascular disease Patient's father is Family history of Alzheimer's disease Cerebrovascular accident Mother Family history of primary kristal
[2022-03-04 19:36] LABS: Blood Urea Nitrogen 14 mg/dL (7-17); Calcium 9.7 mg/dL (8.4-10.2); Carbon Dioxide < 5 mmol/L (22-30); Chloride 99 mmol/L (98-107); Estimated CRCL calculation 33 ml/min; Estimated Glomerular Filt Rate 55; Glucose 816 mg/dL (65-110); Potassium 4.6 mmol/L (3.4-5.0); Sodium 136 mmol/L (137-145)
[2022-03-04 20:14] LABS: Reflex Lactic Acid Yes or No Add Lactic
--- NOTE | 2022-03-04 20:25 | PC.NURSE ---
Lesley successful at inserting left femoral central line. states that pt doesn't need x-ray for confirmation. all lines have blood return and flushes without difficulty.
[2022-03-04] MEDS: INSULIN HUMAN REGULAR (*BKC) 100 UNITS in SODIUM CHLORIDE 0.9% IV 99 ML 15.1 UNITS IV CONT (20:48)
[2022-03-04] MEDS: SODIUM CHLORIDE 0.9% IV 1,000 ML 125 ML IV CONT (21:13)
--- NOTE | 2022-03-04 21:53 | WPDPROCEDUR ---
Procedures Central Line Placement Left Femoral: Central Line Date: 03/04/22 Central Line Time: 21:54 Consent: I have discussed with the patient and/or surrogate, the non-emergent placement of a central venous catheter, including its clinical necessity/indication and associated potential risks and complications. The patient and/or surrogate understand(s) and acknowledge(s) the need to proceed with central venous catheter insertion as an important element of the patient's clinical management. Time Out Performed: Yes Patient Position: supine Patient placed on monitor/pulse ox: Yes Provider Prep: Max. sterile barrier precautions Central line prep: 2% Chlorhexidine scrub Local anesthesia used: lidocaine 1% Amount of anesthesia used (ml): 5 Sterile US Technique with sterile gel/sterile probe covers: Yes Central line lumen inserted: triple [place] Islander: 7 Length (cm): 20 Depth of Insertion (cm): 19 Post Procedure: sutured in place, good blood return, all ports aspirated, flushed, capped and transparent dressing Patient tolerated procedure: well Additional comments: Attempted central line and right femoral vein and I was on he will to admit the guidewire. I will was able to successfully place a central line in the left femoral vein No x-ray necessary
[2022-03-04 22:13] LABS: Lactic Acid 2.8 mmol/L (0.7-2.0)
[2022-03-04 22:18] LABS: Blood Urea Nitrogen 15 mg/dL (7-17); Calcium 9.4 mg/dL (8.4-10.2); Carbon Dioxide < 5 mmol/L (22-30); Chloride 103 mmol/L (98-107); Estimated CRCL calculation 37 ml/min; Estimated Glomerular Filt Rate > 60; Potassium 4.5 mmol/L (3.4-5.0); Sodium 135 mmol/L (137-145)
[2022-03-04 22:26] LABS: Glucose 725 mg/dL (65-110)
--- NOTE | 2022-03-04 22:30 | ADMGEN ---
This patient, Karly Leslie, was admitted to Intensive Care Unit-2. Patient/family oriented to hospital policies and general routines including ID bracelet, bed and alarms, visiting hours, pain management, procedures, bathroom and other care routines, personal items, smoking policy, room service/diet, and visiting hours. Information on how to activate the Rapid Response Team has been discussed. Patient/Family are encouraged to report perceived risks to care and to ask questions if they do not understand what they are told or what they should do.
[2022-03-04] MEDS: CENTRAL LINE FLUSH 10 ML IV PUSH (22:48)
[2022-03-04 22:49] LABS: Glucose Point of Care > 500 mg/dl (65-105)
[2022-03-04 22:59] LABS: Glucose Point of Care > 500 mg/dl (65-105)
[2022-03-05] VITALS (13 sets, daily range): BP systolic 91–118; BP diastolic 42–62; PULSE 64–89; RESP 15–25; TEMP 36.4–37.1; O2SAT 93–100
[2022-03-05 00:06] LABS: Glucose Point of Care 487 mg/dl (65-105)
[2022-03-05 01:07] LABS: Glucose Point of Care 430 mg/dl (65-105)
[2022-03-05 02:07] LABS: Glucose Point of Care 338 mg/dl (65-105)
[2022-03-05] MEDS: INSULIN HUMAN REGULAR (*BKC) 100 UNITS in SODIUM CHLORIDE 0.9% IV 99 ML 16.7 UNITS IV CONT (02:10)
[2022-03-05 02:32] LABS: Anion Gap 14 mmol/L (8-16); Blood Urea Nitrogen 16 mg/dL (7-17); Calcium 9.5 mg/dL (8.4-10.2); Carbon Dioxide 11 mmol/L (22-30); Chloride 108 mmol/L (98-107); Estimated CRCL calculation 53 ml/min; Estimated Glomerular Filt Rate > 60; Glucose 315 mg/dL (65-110); Potassium 3.9 mmol/L (3.4-5.0); Sodium 133 mmol/L (137-145)
[2022-03-05 03:15] LABS: Glucose Point of Care 281 mg/dl (65-105)
[2022-03-05 04:07] LABS: Glucose Point of Care 196 mg/dl (65-105)
[2022-03-05] MEDS: KCL 20 MEQ/D5/0.45% SOD CHL 1,000 ML 150 ML IV CONT (04:08)
[2022-03-05 05:07] LABS: Glucose Point of Care 160 mg/dl (65-105)
[2022-03-05] MEDS: CENTRAL LINE FLUSH 10 ML IV PUSH ×4 (05:08→20:27)
[2022-03-05 05:49] LABS: Basophils Percent Auto 0.1 % (0.2-1.2); Hemoglobin 8.7 g/dL (12.0-15.0); Immature Granulocyte Absolute 0.14 K/mm3 (0.00-0.031); Immature Granulocyte Percent A 0.9 % (0-0.5); Lymphocytes Absolute Auto 1.25 K/mm3 (0.9-3.2); Lymphocytes Percent Auto 8.1 % (18.3-44.2); Mean Corpuscular HGB Conc 31.1 g/dl (32-36); Mean Corpuscular Hemoglobin 31.4 pg (26-34); Mean Corpuscular Volume 101.1 fl (80-100); Mean Platelet Volume 8.4 fl (7.4-10.4); Monocytes Absolute Auto 1.1 K/mm3 (0.1-0.6); Monocytes Percent Auto 7.2 % (2.6-8.5); Neutrophils Absolute Auto 12.8 K/mm3 (1.3-6.7); Neutrophils Percent Auto 83.7 % (45.5-73.1); Platelet Count Result 311 k/mm3 (150-375); Red Blood Count 2.77 M/mm3 (4.2-5.4); Red Cell Distribution Width 14.9 % (11.5-14.5); White Blood Count 15.4 K/mm3 (4.5-10.0)
[2022-03-05 05:58] LABS: Lactic Acid Reflex 1.5 mmol/L (0.7-2.0)
[2022-03-05 05:59] LABS: Anion Gap 7 mmol/L (8-16); Blood Urea Nitrogen 16 mg/dL (7-17); Calcium 9.6 mg/dL (8.4-10.2); Carbon Dioxide 17 mmol/L (22-30); Chloride 113 mmol/L (98-107); Estimated CRCL calculation 63 ml/min; Estimated Glomerular Filt Rate > 60; Glucose 141 mg/dL (65-110); Magnesium 1.8 mg/dL (1.6-2.3); Phosphorus 1.1 mg/dL (2.5-4.5); Potassium 3.8 mmol/L (3.4-5.0); Sodium 137 mmol/L (137-145)
[2022-03-05 07:22] LABS: Glucose Point of Care 110 mg/dl (65-105)
[2022-03-05 08:23] LABS: Glucose Point of Care 130 mg/dl (65-105)
--- NOTE | 2022-03-05 08:31 | WPDCNINT ---
Assessment and Plan Assessment and plan (1) Diabetic ketoacidosis: Code(s): E11.10 - Type 2 diabetes mellitus with ketoacidosis without coma Status: Acute Assessment and Plan: Patient has history of multiple admissions from DKA and is likely secondary to her noncompliance Patient was given IVF bolus and infusion Patient was started on Insulin infusion and Q1H glucose monitoring Serial labs were ordered Anion gap has now closed Patient is asymptomatic I will transition patient to subcutaneous insulin, start diet and change IV fluids (2) Pneumonia: Code(s): J18.9 - Pneumonia, unspecified organism Status: Acute Assessment and Plan: Patient had normal chest x-ray on presentation and due to elevated WBC count she was started on empiric antibiotics Patient denies any fever cough and is on room air Check procalcitonin level Cultures have been sent and are pending Continue empiric antibiotics for now (3) Electrolyte abnormality: Code(s): E87.8 - Other disorders of electrolyte and fluid balance, not elsewhere classified Status: Acute Assessment and Plan: Will order potassium and phosphate replacement (4) Dehydration: Code(s): E86.0 - Dehydration Status: Acute Assessment and Plan: Improved with IV fluids (5) Noncompliance: Code(s): Z91.199 - Patient's noncompliance with other medical treatment and regimen due to unspecified reason Status: Acute Assessment and Plan: This issue has been discussed with patient multiple times she claims compliance with the medication. I have spoken to her daughter in the past she states the patient does not allow her to interfere with her medications. (6) DVT (deep venous thrombosis): Code(s): I82.409 - Acute embolism and thrombosis of unspecified deep veins of unspecified lower extremity Status: Acute Assessment and Plan: Resume Eliquis (7) Venous insufficiency: Code(s): I87.2 - Venous insufficiency (chronic) (peripheral) Status: Acute Assessment and Plan: Patient has poor IV access and required central line of PICC line on each admission. Patient would benefit from a port due to her situation but patient never states out of hospital for enough time to get outpatient follow-up Plan DVT prophylaxis - Eliquis Stress ulcer prophylaxis -PPI Nutrition -diabetic diet Code Status - Full Code Foster Care Therapist Consult Note Consult date: 03/05/22 Reason for consult: DKA HPI: Karly Leslie is a 71 year old female? with past medical history of poorly-controlled type 2 diabetes which was diagnosed in March of 2019 and noncompliance with insulin with multiple frequent admissions to ER with DKA presented to ED last night with chief complaint of nausea and vomiting.? Patient was discharged few days ago on 02/22 after treatment for DKA.? Patient has significant compliance issues and comes frequently for DKA.? Patient presented yesterday with generalized weakness nausea vomiting and shortness of breath. In ED patient patient was found to be having elevated blood sugars and DKA.? She was given IV fluid bolus, started on IV fluids and IV insulin infusion.? For chest x-ray was abnormal and due to elevated white count she was started on empiric antibiotics for pneumonia. Patient was admitted to ICU for further evaluation management. Patient has a very difficult IV access and required central line or PICC line on every admission. This morning when I saw the patient she is drowsy but arousable. She states that she is feeling better and denies any complaints today. She denied any nausea vomiting abdominal pain shortness of breath cough or fever to me. All other systems were reviewed and were negative. Continues to be on insulin infusion and IV fluids Review of Systems Review of Systems: All systems reviewed & are unremarkable except as noted in HPI and below (HPI) PMFSH Past Medical H
[2022-03-05] MEDS: POTASSIUM PHOS,M-BASIC-D-BASIC 20 MMOL in SODIUM CHLORIDE 0.9% IV 250 ML 64.17 MMOL IVPB (08:34)
[2022-03-05] MEDS: KCL 20 MEQ/0.45% NS 1,000 ML 50 ML IV CONT (08:34)
[2022-03-05] MEDS: APIXABAN 5 MG TABLET PO ×2 (08:35→20:11)
[2022-03-05] MEDS: INSULIN GLARGINE (*BKC) 100 UNITS/ML 30 UNITS SUB-Q (08:54)
[2022-03-05 09:00] LABS: Glucose Point of Care 74 mg/dl (65-105)
--- NOTE | 2022-03-05 09:42 | PC.NURSE ---
This RN charted under Andrade Brito RN accidentally at 0830 for the following medications: Cefepime, Eliquis, Lantus, KCL 1/2 Daxa HARGROVE.
[2022-03-05 10:49] LABS: Anion Gap 4 mmol/L (8-16); Blood Urea Nitrogen 16 mg/dL (7-17); Calcium 9.1 mg/dL (8.4-10.2); Carbon Dioxide 19 mmol/L (22-30); Chloride 107 mmol/L (98-107); Estimated CRCL calculation 76 ml/min; Estimated Glomerular Filt Rate > 60; Glucose 224 mg/dL (65-110); Potassium 4.4 mmol/L (3.4-5.0); Sodium 130 mmol/L (137-145)
[2022-03-05 11:07] LABS: Procalcitonin 1.8 ng/mL
[2022-03-05 11:27] LABS: Glucose Point of Care 207 mg/dl (65-105)
[2022-03-05] MEDS: INSULIN ASPART (*BKC) 100 UNITS/ML SUB-Q ×3 (11:27→20:24)
[2022-03-05] MEDS: ACETAMINOPHEN 325 MG TABLET 650 MG PO (14:24)
[2022-03-05] MEDS: HYDROcodone/acetaminophen (*CRX) 5-325 MG TABLET 1 TAB PO ×2 (15:55→20:12)
[2022-03-05 16:27] LABS: Anion Gap 6 mmol/L (8-16); Blood Urea Nitrogen 14 mg/dL (7-17); Carbon Dioxide 17 mmol/L (22-30); Chloride 109 mmol/L (98-107); Estimated CRCL calculation 76 ml/min; Estimated Glomerular Filt Rate > 60; Potassium 4.3 mmol/L (3.4-5.0); Sodium 132 mmol/L (137-145)
[2022-03-05 16:31] LABS: Glucose 249 mg/dL (65-110)
--- NOTE | 2022-03-05 16:58 | PC.NURSE ---
This patient, Karly Leslie, was received from [ICU ] on 03/05/22 at 1655. Patient/family oriented to unit policies and routines
[2022-03-05 17:05] LABS: Glucose Point of Care 238 mg/dl (65-105)
--- NOTE | 2022-03-05 17:08 | PC.NURSE ---
Report given to SAMMY Wright. Pt transferred with all belongings to room 245. Call light within reach. Bed in lowest and locked position.
[2022-03-05 20:32] LABS: Glucose Point of Care 231 mg/dl (65-105)
[2022-03-06] VITALS (9 sets, daily range): BP systolic 103–141; BP diastolic 51–67; PULSE 58–73; RESP 16–18; TEMP 36.2–36.6; O2SAT 100
[2022-03-06] MEDS: ACETAMINOPHEN 325 MG TABLET 650 MG PO ×4 (00:03→23:02)
[2022-03-06] MEDS: CENTRAL LINE FLUSH 10 ML IV PUSH ×4 (05:37→21:04)
[2022-03-06] MEDS: HYDROcodone/acetaminophen (*CRX) 5-325 MG TABLET 1 TAB PO ×2 (05:37→11:35)
[2022-03-06 05:41] LABS: Glucose Point of Care 162 mg/dl (65-105)
[2022-03-06] MEDS: KCL 20 MEQ/0.45% NS 1,000 ML 50 ML IV CONT (06:00)
--- NOTE | 2022-03-06 07:35 | PM.IMPN ---
Progress Note: A&P Assessment and Plan (1) Diabetic ketoacidosis: Code(s): E11.10 - Type 2 diabetes mellitus with ketoacidosis without coma Status: Acute Assessment and Plan: Patient has history of multiple admissions from DKA and is likely secondary to her noncompliance Patient was given IVF bolus and infusion Patient was started on Insulin infusion and Q1H glucose monitoring Serial labs were ordered Anion gap has now closed transition patient to subcutaneous insulin, start diet (2) Pneumonia: Code(s): J18.9 - Pneumonia, unspecified organism Status: Acute Assessment and Plan: Patient had normal chest x-ray on presentation and due to elevated WBC count she was started on empiric antibiotics Patient denies any fever cough and is on room air Check procalcitonin level Cultures have been sent and are pending Continue empiric antibiotics for now (3) Electrolyte abnormality: Code(s): E87.8 - Other disorders of electrolyte and fluid balance, not elsewhere classified Status: Acute Assessment and Plan: Dehydration Hyponatremia Continue normal saline IV Follow-up BMP (4) Dehydration: Code(s): E86.0 - Dehydration Status: Acute Assessment and Plan: Improved with IV fluids (5) Noncompliance: Code(s): Z91.199 - Patient's noncompliance with other medical treatment and regimen due to unspecified reason Status: Acute Assessment and Plan: This issue has been discussed with patient multiple times she claims compliance with the medication. I have spoken to her daughter in the past she states the patient does not allow her to interfere with her medications. (6) DVT (deep venous thrombosis): Code(s): I82.409 - Acute embolism and thrombosis of unspecified deep veins of unspecified lower extremity Status: Acute Assessment and Plan: Resume Eliquis 5 mg b.i.d. p.o. (7) Venous insufficiency: Code(s): I87.2 - Venous insufficiency (chronic) (peripheral) Status: Acute Plan DVT prophylaxis - Eliquis Stress ulcer prophylaxis -PPI Nutrition -diabetic diet Code Status - Full Code Subjective Date/time seen: 03/06/22 07:35 Saw and examined patient. Patient still has general weakness. Denies chest pain, shortness her breath, abdomen pain, nausea vomiting. Patient was eating breakfast when I saw examined patient Exam Narrative: General: Pt is alert awake and in NAD Lungs/Chest: Trachea central Clear BS B/L, No crackles or wheezing. Cardiac: RRR. Normal S1 S2. No murmurs Circulation: Feet are warm Abdomen: Normal bowel sounds.. Soft. NT. ND. Extremities: No clubbing, cyanosis, 3+ edema of right lower extremity. Warm left femoral central venous catheter : Grace in place Neurologic: Follows commands. Moves all 4 extremities PERRL Skin: No Rash Const: General: cooperative, comfortable, alert, awake, Physically active, ill appearing, tired appearing and thin Nutritional Appearance: thin Orientation/consciousness: oriented to person and oriented to place Limitations: no limitations HENMT: Head: normal to inspection, No palpable skull fracture present, normocephalic and atraumatic Ears: hearing grossly normal bilaterally and external ears normal Face/Nose/Sinus: Normal external nose present and Normal nares present Mouth: Yes dry mucous membranes Eyes: General: appearance normal, both eyes and all related structures Alignment and Position: alignment normal Periorbital: periorbital findings normal Eyelids: eyelids normal Sclera: sclerae normal Pupils: Equal, round and reactive pupils present EOM: EOMs intact bilaterally Neck: Neck: normal visual inspection, full ROM, no lymphadenopathy, trachea midline and supple Chest: Chest palpation & inspection: normal inspection of the chest Resp: Effort & Inspection: normal respiratory effort Auscultation: clear to auscultation bilaterally Cardio: Palpation: norm
[2022-03-06 08:19] LABS: Hemoglobin 8.7 g/dL (12.0-15.0); Mean Corpuscular HGB Conc 31.1 g/dl (32-36); Mean Corpuscular Hemoglobin 31.3 pg (26-34); Mean Corpuscular Volume 100.7 fl (80-100); Mean Platelet Volume 8.8 fl (7.4-10.4); Platelet Count Result 256 k/mm3 (150-375); Red Blood Count 2.78 M/mm3 (4.2-5.4); Red Cell Distribution Width 15.5 % (11.5-14.5); White Blood Count 7.6 K/mm3 (4.5-10.0)
[2022-03-06 08:32] LABS: Alanine Aminotransferase 22 U/L (6-35); Albumin Level 2.8 g/dL (3.5-5.1); Alkaline Phosphatase 188 U/L (38-126); Anion Gap 2 mmol/L (8-16); Aspartate Amino Transferase 25 U/L (14-36); Bilirubin,Total 0.2 mg/dL (0.2-1.3); Blood Urea Nitrogen 9 mg/dL (7-17); Calcium 8.9 mg/dL (8.4-10.2); Carbon Dioxide 21 mmol/L (22-30); Chloride 105 mmol/L (98-107); Estimated CRCL calculation 76 ml/min; Estimated Glomerular Filt Rate > 60; Glucose 138 mg/dL (65-110); Magnesium 1.9 mg/dL (1.6-2.3); Potassium 3.9 mmol/L (3.4-5.0); Sodium 128 mmol/L (137-145)
[2022-03-06 08:39] LABS: Glucose Point of Care 128 mg/dl (65-105)
[2022-03-06] MEDS: INSULIN GLARGINE (*BKC) 100 UNITS/ML 30 UNITS SUB-Q (09:10)
[2022-03-06] MEDS: APIXABAN 5 MG TABLET PO ×2 (09:24→21:03)
[2022-03-06 09:42] LABS: Vancomycin Trough 11.5 ug/mL (10.0-20.0)
[2022-03-06 12:07] LABS: Glucose Point of Care 191 mg/dl (65-105)
[2022-03-06 16:55] LABS: Glucose Point of Care 162 mg/dl (65-105)
[2022-03-06] MEDS: SODIUM CHLORIDE 0.9% IV 1,000 ML 100 ML IV CONT (16:55)
[2022-03-06 22:26] LABS: Glucose Point of Care 130 mg/dl (65-105)
[2022-03-06] MEDS: diphenhydrAMINE HCl CAP 25 MG CAPSULE PO (23:02)
[2022-03-07] VITALS (9 sets, daily range): BP systolic 102–118; BP diastolic 63–86; PULSE 64–72; RESP 16; TEMP 36.4–37.1; O2SAT 98–100; BMI 25.1
[2022-03-07] MEDS: CENTRAL LINE FLUSH 10 ML IV PUSH ×4 (06:51→20:59)
[2022-03-07] MEDS: HYDROcodone/acetaminophen (*CRX) 5-325 MG TABLET 1 TAB PO ×2 (07:01→14:55)
[2022-03-07 08:04] LABS: Alanine Aminotransferase 21 U/L (6-35); Alkaline Phosphatase 195 U/L (38-126); Anion Gap 4 mmol/L (8-16); Aspartate Amino Transferase 24 U/L (14-36); Bilirubin,Total 0.3 mg/dL (0.2-1.3); Blood Urea Nitrogen 6 mg/dL (7-17); Calcium 9.2 mg/dL (8.4-10.2); Carbon Dioxide 23 mmol/L (22-30); Chloride 109 mmol/L (98-107); Estimated CRCL calculation 76 ml/min; Estimated Glomerular Filt Rate > 60; Glucose 68 mg/dL (65-110); Potassium 3.2 mmol/L (3.4-5.0); Sodium 136 mmol/L (137-145)
[2022-03-07 08:08] LABS: Hematocrit 30.8 % (37.0-47.0); Hemoglobin 9.8 g/dL (12.0-15.0); Mean Corpuscular HGB Conc 31.8 g/dl (32-36); Mean Corpuscular Hemoglobin 31.2 pg (26-34); Mean Corpuscular Volume 98.1 fl (80-100); Mean Platelet Volume 9.1 fl (7.4-10.4); Platelet Count Result 282 k/mm3 (150-375); Red Blood Count 3.14 M/mm3 (4.2-5.4); Red Cell Distribution Width 15.5 % (11.5-14.5); White Blood Count 6.7 K/mm3 (4.5-10.0)
[2022-03-07 08:56] LABS: Glucose Point of Care 61 mg/dl (65-105)
[2022-03-07 09:23] LABS: Glucose Point of Care 110 mg/dl (65-105)
[2022-03-07] MEDS: APIXABAN 5 MG TABLET PO ×2 (10:14→20:12)
[2022-03-07 11:52] LABS: Glucose Point of Care 148 mg/dl (65-105)
--- NOTE | 2022-03-07 13:00 | PM.IMPN ---
Progress Note: A&P Assessment and Plan (1) Diabetic ketoacidosis: Code(s): E11.10 - Type 2 diabetes mellitus with ketoacidosis without coma Status: Acute Assessment and Plan: DKA resolved, became hypoglycemic on home Lantus, decreased to 27 units today and monitor (2) Pneumonia: Code(s): J18.9 - Pneumonia, unspecified organism Status: Acute Assessment and Plan: do not suspect pneumonia, continue antibiotics for now, consider rechecking chest x-ray and monitoring off antibiotics tomorrow (3) Electrolyte abnormality: Code(s): E87.8 - Other disorders of electrolyte and fluid balance, not elsewhere classified Status: Acute Assessment and Plan: mild hypokalemia noted, replete and recheck tomorrow (4) Dehydration: Code(s): E86.0 - Dehydration Status: Acute Assessment and Plan: resolved, monitor on p.o. fluids (5) Noncompliance: Code(s): Z91.199 - Patient's noncompliance with other medical treatment and regimen due to unspecified reason Status: Acute Assessment and Plan: patient adamantly denies any noncompliance with medications, however, hypoglycemia here on home regimen seems to suggest otherwise especially in relationship to her A1c being consistently greater than 14 (6) DVT (deep venous thrombosis): Code(s): I82.409 - Acute embolism and thrombosis of unspecified deep veins of unspecified lower extremity Status: Acute Assessment and Plan: Resume Eliquis 5 mg b.i.d. p.o. (7) Venous insufficiency: Code(s): I87.2 - Venous insufficiency (chronic) (peripheral) Status: Acute Plan DVT prophylaxis - Eliquis Stress ulcer prophylaxis -PPI Nutrition -diabetic diet Code Status - Full Code Subjective Date/time seen: 03/07/22 13:00 Interval history: No overnight events noted. No chest pain or shortness of breath. No nausea, vomiting or diarrhea. No fevers or chills. patient adamantly denies ever missing her NovoLog or Lantus injections at home. She states she usually eats 1 meal a day and takes both shots at that time. She does admit to sometimes skipping her NovoLog, but denies ever skipping her Lantus despite her A1c being greater than 14 and her becoming hypoglycemic when taking her home Lantus dose here. Review of Systems Review of Systems: 12 point review of systems was assessed and was negative except as noted in the HPI Exam Narrative: General: No acute distress, alert and oriented per baseline HEENT: Atraumatic, normocephalic, mucous membranes moist CV: Regular rate and rhythm, S1, S2 Lungs: Clear to auscultation bilaterally, no rales or crackles noted, no wheezes, good air entry Abdomen: Soft, nontender, nondistended Extremities: Normal to inspection Skin: No rashes noted, no lesions or wounds seen Psych: Euthymic, normal affect Objective Data Vital Signs Vital Signs: Vital Signs - 24 hr 03/06/22 14:44 03/06/22 16:00 03/06/22 20:58 Temperature 97.2 F L 97.8 F Pulse Rate 67 66 72 Respiratory Rate 18 16 Blood Pressure 141/62 H 136/67 Pulse Oximetry 100 100 03/06/22 20:00 03/07/22 00:00 03/07/22 04:00 Temperature Pulse Rate 73 64 64 Respiratory Rate Blood Pressure Pulse Oximetry 03/07/22 06:00 Temperature 98.2 F Pulse Rate 65 Respiratory Rate 16 Blood Pressure 118/63 Pulse Oximetry 98 Intake/Output Intake/Output: Intake & Output 03/04/22 03/05/22 03/06/22 03/07/22 23:59 23:59 23:59 23:59 Intake Total 2300 1360 2930 610 Output Total 5264 156 2451 800 Balance 4965 968 4263 -190 Meds/Results Medications: Active Medications Generic Name Dose Route Start Last Admin Trade Name Freq PRN Reason Stop Dose Admin Acetaminophen 650 mg 03/05/22 14:15 03/06/22 23:02 Acetaminophen 325 Mg Tablet PO 650 mg Q4H PRN Administration Pain Hydrocodone Bitart/Acetaminophen 1 tab 03/05/22 14:52 03/07/22 07:
[2022-03-07] MEDS: INSULIN GLARGINE (*BKC) 100 UNITS/ML 27 UNITS SUB-Q (13:50)
[2022-03-07] MEDS: POTASSIUM CHLORIDE 20 MEQ TABLET 40 MEQ PO (13:58)
[2022-03-07 14:02] LABS: Glucose Point of Care 214 mg/dl (65-105)
[2022-03-07 17:17] LABS: Glucose Point of Care 79 mg/dl (65-105)
[2022-03-07 20:20] LABS: Glucose Point of Care 183 mg/dl (65-105)
[2022-03-08] VITALS (9 sets, daily range): BP systolic 109–116; BP diastolic 55–66; PULSE 62–68; RESP 16–20; TEMP 36.5–36.8; O2SAT 98–100
[2022-03-08] MEDS: CENTRAL LINE FLUSH 10 ML IV PUSH ×4 (05:01→21:58)
[2022-03-08 05:09] LABS: Hematocrit 28.9 % (37.0-47.0); Mean Corpuscular HGB Conc 31.1 g/dl (32-36); Mean Corpuscular Hemoglobin 31.1 pg (26-34); Platelet Count Result 219 k/mm3 (150-375); Red Blood Count 2.89 M/mm3 (4.2-5.4); Red Cell Distribution Width 15.6 % (11.5-14.5); White Blood Count 5.4 K/mm3 (4.5-10.0)
[2022-03-08 05:11] LABS: Glucose Point of Care 65 mg/dl (65-105)
[2022-03-08 05:11] LABS: Glucose Point of Care 56 mg/dl (65-105)
[2022-03-08 05:19] LABS: Alanine Aminotransferase 18 U/L (6-35); Albumin Level 2.7 g/dL (3.5-5.1); Alkaline Phosphatase 167 U/L (38-126); Anion Gap 3 mmol/L (8-16); Aspartate Amino Transferase 22 U/L (14-36); Bilirubin,Total 0.2 mg/dL (0.2-1.3); Blood Urea Nitrogen 2 mg/dL (7-17); Calcium 8.7 mg/dL (8.4-10.2); Carbon Dioxide 26 mmol/L (22-30); Chloride 105 mmol/L (98-107); Estimated CRCL calculation 97 ml/min; Estimated Glomerular Filt Rate > 60; Glucose 61 mg/dL (65-110); Magnesium 1.8 mg/dL (1.6-2.3); Potassium 3.3 mmol/L (3.4-5.0); Sodium 134 mmol/L (137-145)
[2022-03-08 06:54] LABS: Glucose Point of Care 127 mg/dl (65-105)
[2022-03-08] MEDS: INSULIN GLARGINE (*BKC) 100 UNITS/ML 20 UNITS SUB-Q (08:39)
[2022-03-08] MEDS: APIXABAN 5 MG TABLET PO ×2 (08:40→20:31)
[2022-03-08 08:58] LABS: Glucose Point of Care 132 mg/dl (65-105)
[2022-03-08] MEDS: HYDROcodone/acetaminophen (*CRX) 5-325 MG TABLET 1 TAB PO ×2 (10:37→20:29)
[2022-03-08 12:24] LABS: Glucose Point of Care 154 mg/dl (65-105)
--- NOTE | 2022-03-08 12:56 | PM.IMPN ---
Progress Note: A&P Assessment and Plan (1) Diabetic ketoacidosis: Code(s): E11.10 - Type 2 diabetes mellitus with ketoacidosis without coma Status: Acute Assessment and Plan: DKA resolved, cut lantus to 20 units pt hypoglycemic again today (2) Pneumonia: Code(s): J18.9 - Pneumonia, unspecified organism Status: Acute Assessment and Plan: Lungs are clear DC ABX (3) Electrolyte abnormality: Code(s): E87.8 - Other disorders of electrolyte and fluid balance, not elsewhere classified Status: Acute Assessment and Plan: Replace potassium continue to monitor (4) Dehydration: Code(s): E86.0 - Dehydration Status: Acute Assessment and Plan: encourage fluids orally (5) Noncompliance: Code(s): Z91.199 - Patient's noncompliance with other medical treatment and regimen due to unspecified reason Status: Acute Assessment and Plan: Patient adamantly denies any noncompliance with insulin shots (6) DVT (deep venous thrombosis): Code(s): I82.409 - Acute embolism and thrombosis of unspecified deep veins of unspecified lower extremity Status: Acute Assessment and Plan: Resume Eliquis 5 mg b.i.d. p.o. (7) Venous insufficiency: Code(s): I87.2 - Venous insufficiency (chronic) (peripheral) Status: Acute Plan Subjective Date/time seen: 03/08/22 12:56 Interval history: Pt admitted for DKA, pneumonia and dehydration Pt states she often misses her novolog and lantus doses at home. Today pt is hypoglycemic lantus dose decreased Hbaic is 14 pt is non compliant with her shots at home. Exam Narrative: General: No acute distress, alert and oriented per baseline CV: Regular rate and rhythm, S1, S2 Lungs: Clear to auscultation bilaterally, no rales or crackles noted, no wheezes, good air entry Abdomen: Soft, nontender, nondistended Extremities: Normal to inspection Skin: No rashes noted, no lesions or wounds seen Psych: Euthymic, normal affect Objective Data Vital Signs Vital Signs: Vital Signs - 24 hr 03/07/22 16:30 03/07/22 16:00 03/07/22 20:00 Temperature 36.4 C L Pulse Rate 66 65 Respiratory Rate 16 Blood Pressure 116/86 Pulse Oximetry 100 Oxygen Delivery Room Air 03/07/22 20:31 03/07/22 20:00 03/08/22 00:00 Temperature 37.1 C Pulse Rate 72 67 65 Respiratory Rate 16 Blood Pressure 102/63 Pulse Oximetry 99 Oxygen Delivery 03/08/22 04:56 03/08/22 04:00 03/08/22 08:40 Temperature 36.8 C Pulse Rate 63 66 Respiratory Rate 18 Blood Pressure 116/59 L Pulse Oximetry 99 Oxygen Delivery Room Air 03/08/22 08:00 03/08/22 12:00 Temperature Pulse Rate 62 63 Respiratory Rate Blood Pressure Pulse Oximetry Oxygen Delivery Intake/Output Intake/Output: Intake & Output 03/05/22 03/06/22 03/07/22 03/08/22 23:59 23:59 23:59 23:59 Intake Total 1360 2930 1320 1030 Output Total 850 1500 1450 600 Balance 510 1430 -130 430 Meds/Results Medications: Active Medications Generic Name Dose Route Start Last Admin Trade Name Freq PRN Reason Stop Dose Admin Acetaminophen 650 mg 03/05/22 14:15 03/06/22 23:02 Acetaminophen 325 Mg Tablet PO 650 mg Q4H PRN Administration Pain Hydrocodone Bitart/Acetaminophen 1 tab 03/05/22 14:52 03/08/22 10:37 Hydrocodone/Acetaminophen (*Crx) 5-325 Mg Tablet PO 1 tab Q4H PRN Administration Pain Rated 4-6 Apixaban 5 mg 03/05/22 09:00 03/08/22 08:40 Apixaban 5 Mg Tablet PO 5 mg Q12HR DANIEL Administration Dextrose 12.5 gm 03/04/22 17:42 Dextrose 50% 25 Gm/50 Ml Syringe IV PUSH PRN PRN Hypoglycemia Protocol Glucagon 1 mg 03/04/22 17:42 Glucagon For Inj 1 Mg Vial IM PRN PRN Hypoglycemia Protocol Glucose 15 gm 03/04/22 17:42 Glucose Oral Gel 15 Gm Of Glucse In 37.5 Gm Tube PO PRN PRN Hypoglycem
[2022-03-08] MEDS: POTASSIUM CHLORIDE 20 MEQ TABLET.ER 40 MEQ PO (14:26)
[2022-03-08 17:16] LABS: Glucose Point of Care 269 mg/dl (65-105)
[2022-03-08] MEDS: INSULIN ASPART (*BKC) 100 UNITS/ML SUB-Q (17:25)
[2022-03-08 22:05] LABS: Glucose Point of Care 269 mg/dl (65-105)
[2022-03-09] VITALS: PULSE 61
[2022-03-09] MEDS: HYDROcodone/acetaminophen (*CRX) 5-325 MG TABLET 1 TAB PO ×2 (00:33→06:36)
[2022-03-09 04:00] VITALS: PULSE 56
[2022-03-09] MEDS: CENTRAL LINE FLUSH 10 ML IV PUSH (05:37)
[2022-03-09] MEDS: CENTRAL LINE FLUSH 20 ML IV PUSH (05:37)
[2022-03-09 05:46] LABS: Hematocrit 30.1 % (37.0-47.0); Hemoglobin 9.5 g/dL (12.0-15.0); Mean Corpuscular HGB Conc 31.6 g/dl (32-36); Mean Corpuscular Hemoglobin 31.8 pg (26-34); Mean Corpuscular Volume 100.7 fl (80-100); Mean Platelet Volume 9.4 fl (7.4-10.4); Platelet Count Result 188 k/mm3 (150-375); Red Blood Count 2.99 M/mm3 (4.2-5.4); Red Cell Distribution Width 15.3 % (11.5-14.5); White Blood Count 4.5 K/mm3 (4.5-10.0)
[2022-03-09 06:04] LABS: Alanine Aminotransferase 19 U/L (6-35); Albumin Level 2.9 g/dL (3.5-5.1); Alkaline Phosphatase 174 U/L (38-126); Anion Gap 0 mmol/L (8-16); Aspartate Amino Transferase 22 U/L (14-36); Bilirubin,Total 0.3 mg/dL (0.2-1.3); Blood Urea Nitrogen 8 mg/dL (7-17); Carbon Dioxide 29 mmol/L (22-30); Chloride 104 mmol/L (98-107); Estimated CRCL calculation 97 ml/min; Estimated Glomerular Filt Rate > 60; Glucose 286 mg/dL (65-110); Magnesium 2.1 mg/dL (1.6-2.3); Sodium 133 mmol/L (137-145)
[2022-03-09 08:00] VITALS: PULSE 60
[2022-03-09 08:31] LABS: Glucose Point of Care 250 mg/dl (65-105)
[2022-03-09] MEDS: APIXABAN 5 MG TABLET PO (08:34)
[2022-03-09] MEDS: POTASSIUM CHLORIDE 20 MEQ TABLET.ER 40 MEQ PO (08:34)
[2022-03-09] MEDS: INSULIN GLARGINE (*BKC) 100 UNITS/ML 20 UNITS SUB-Q (08:34)
[2022-03-09] MEDS: INSULIN ASPART (*BKC) 100 UNITS/ML SUB-Q ×2 (08:34→12:07)
--- NOTE | 2022-03-09 10:46 | PM.IMPN ---
Progress Note: A&P Assessment and Plan (1) Diabetic ketoacidosis: Code(s): E11.10 - Type 2 diabetes mellitus with ketoacidosis without coma Status: Acute Assessment and Plan: DKA resolved, became hypoglycemic on home Lantus, decreased to 20 units yesterday due to hypoglycemia Much higher glucose this morning, will initiate mealtime coverage of NovoLog 3 units with meals (2) Pneumonia: Code(s): J18.9 - Pneumonia, unspecified organism Status: Acute Assessment and Plan: Antibiotics discontinued, patient is stable, do not suspect she had pneumonia (3) Electrolyte abnormality: Code(s): E87.8 - Other disorders of electrolyte and fluid balance, not elsewhere classified Status: Acute Assessment and Plan: Stable (4) Dehydration: Code(s): E86.0 - Dehydration Status: Acute Assessment and Plan: Stable (5) Noncompliance: Code(s): Z91.199 - Patient's noncompliance with other medical treatment and regimen due to unspecified reason Status: Acute Assessment and Plan: Patient adamantly denies any noncompliance with medications, however, hypoglycemia here on home regimen seems to suggest otherwise especially in relationship to her A1c being consistently greater than 14 (6) DVT (deep venous thrombosis): Code(s): I82.409 - Acute embolism and thrombosis of unspecified deep veins of unspecified lower extremity Status: Acute Assessment and Plan: Resume Eliquis 5 mg b.i.d. p.o. (7) Venous insufficiency: Code(s): I87.2 - Venous insufficiency (chronic) (peripheral) Status: Acute Plan DVT prophylaxis with Eliquis GI prophylaxis with PPI Code status full code Subjective Date/time seen: 03/09/22 10:46 Interval history: No overnight events noted. No chest pain or shortness of breath. No nausea, vomiting or diarrhea. No fevers or chills. Review of Systems Review of Systems: 12 point review of systems was assessed and was negative except as noted in the HPI Exam Narrative: General: No acute distress, alert and oriented per baseline HEENT: Atraumatic, normocephalic, mucous membranes moist CV: Regular rate and rhythm, S1, S2 Lungs: Clear to auscultation bilaterally, no rales or crackles noted, no wheezes, good air entry Abdomen: Soft, nontender, nondistended Extremities: Normal to inspection Skin: No rashes noted, no lesions or wounds seen Psych: Euthymic, normal affect Objective Data Vital Signs Vital Signs: Vital Signs - 24 hr 03/08/22 12:00 03/08/22 15:30 03/08/22 16:00 Temperature 97.7 F Pulse Rate 63 68 67 Respiratory Rate 20 Blood Pressure 109/55 L Pulse Oximetry 100 Oxygen Delivery 03/08/22 19:52 03/08/22 20:15 03/08/22 20:00 Temperature 97.8 F Pulse Rate 66 68 Respiratory Rate 16 Blood Pressure 116/66 Pulse Oximetry 98 Oxygen Delivery Room Air 03/09/22 00:00 03/09/22 04:00 03/09/22 08:34 Temperature Pulse Rate 61 56 L Respiratory Rate Blood Pressure Pulse Oximetry Oxygen Delivery Room Air Intake/Output Intake/Output: Intake & Output 03/06/22 03/07/22 03/08/22 03/09/22 23:59 23:59 23:59 23:59 Intake Total 2930 1320 1370 930 Output Total 1500 1450 1000 Balance 1430 -130 370 930 Meds/Results Medications: Active Medications Generic Name Dose Route Start Last Admin Trade Name Freq PRN Reason Stop Dose Admin Acetaminophen 650 mg 03/05/22 14:15 03/06/22 23:02 Acetaminophen 325 Mg Tablet PO 650 mg Q4H PRN Administration Pain Hydrocodone Bitart/Acetaminophen 1 tab 03/05/22 14:52 03/09/22 06:36 Hydrocodone/Acetaminophen (*Crx) 5-325 Mg Tablet PO 1 tab Q4H PRN Administration Pain Rated 4-6 Apixaban 5 mg 03/05/22 09:00 03/09/22 08:34 Apixaban 5 Mg Tablet PO 5 mg Q12HR DANIEL Administration Dextrose 12.5 gm 03/04/22 17:42 Dextrose 50% 25 Gm/50 Ml Syringe IV PUSH UT
--- NOTE | 2022-03-09 10:59 | PM.DS ---
DS: Admitting Diagnosis Discharge Date 03/09/22 Admitting Diagnosis DKA DS: Discharge Diagnosis Discharge Diagnosis (1) Diabetic ketoacidosis: Code(s): E11.10 - Type 2 diabetes mellitus with ketoacidosis without coma Status: Acute Assessment and Plan: DKA resolved, became hypoglycemic on home Lantus, decreased to 20 units yesterday due to hypoglycemia Much higher glucose this morning, will initiate mealtime coverage of NovoLog 3 units with meals (2) Pneumonia: Code(s): J18.9 - Pneumonia, unspecified organism Status: Acute Assessment and Plan: Antibiotics discontinued, patient is stable, do not suspect she had pneumonia (3) Electrolyte abnormality: Code(s): E87.8 - Other disorders of electrolyte and fluid balance, not elsewhere classified Status: Acute Assessment and Plan: Stable (4) Dehydration: Code(s): E86.0 - Dehydration Status: Acute Assessment and Plan: Stable (5) Noncompliance: Code(s): Z91.199 - Patient's noncompliance with other medical treatment and regimen due to unspecified reason Status: Acute Assessment and Plan: Patient adamantly denies any noncompliance with medications, however, hypoglycemia here on home regimen seems to suggest otherwise especially in relationship to her A1c being consistently greater than 14 (6) DVT (deep venous thrombosis): Code(s): I82.409 - Acute embolism and thrombosis of unspecified deep veins of unspecified lower extremity Status: Acute Assessment and Plan: Resume Eliquis 5 mg b.i.d. p.o. (7) Venous insufficiency: Code(s): I87.2 - Venous insufficiency (chronic) (peripheral) Status: Acute Plan DVT prophylaxis with Eliquis GI prophylaxis with PPI Code status full code DS: Summary Hospital Course Hospital Course: 71-year-old female patient who has a history of diabetes poorly controlled.? She has had multiple episodes of DKA.? The patient was last discharged from the hospital on 02/22/2022 with DKA.? Most admissions are due to noncompliance with insulin.? Her white count is 17.7.? On the arterial blood gases are pH was 7.081 CO2 was 12.2 PO2 122.8.? Bicarb is 3.5.? Sodium is 136.? Glucose 816.? Last A1c on 02/18/2022 was 14.0 and has been for 14.0 for several months.? Lactic acid is 2.2.? Her b hob is 16.8.? She is negative for influenza A/B and COVID.? The patient was given 2 L of normal saline bolus IV insulin.? She was started on cefepime and vancomycin.? Chest x-ray was read as diffuse hazy bilateral airspace disease which may represent edema or pneumonia. Patient started on DKA protocol in the ICU with continued antibiotics, she improved and was transitioned to her home insulin regimen which she states she is not compliant with. She initially was hypoglycemic on home insulin, therefore her dose was decreased. She was not thought to have pneumonia, antibiotics discontinued and she was observed. She was stable on room air off antibiotics. Extensive discussions had with patient's from diabetic Education, nursing and providers regarding importance of compliance with insulin. She is adamant that she wants to go home at discharge and does not plan on caring for herself. Care coordination has submitted adult protective services report due to self neglect. Time Spent with Patient Time attestation: Total time spent providing and/or coordinating discharge services: Exam Narrative: General: No acute distress, alert and oriented per baseline HEENT: Atraumatic, normocephalic, mucous membranes moist CV: Regular rate and rhythm, S1, S2 Lungs: Clear to auscultation bilaterally, no rales or crackles noted, no wheezes, good air entry Abdomen: Soft, nontender, nondistended Extremities: Normal to inspection Skin: No rashes noted, no lesions or wounds seen Psych: Euthymic, normal affect DS: Data Data Completed and Pending Labs on day of discharge: Le[facility]
[2022-03-09 12:02] LABS: Glucose Point of Care 142 mg/dl (65-105)
== END 2022-03-09 15:08 | disposition home or self-care (01) | DRG 638 ==
LOC: ANHED 17:22 → ANHIMU 20:28 → ANHICU 21:41 → ANH2MED 03-05 16:57
PROVIDERS: Internal Medicine; Nurse Practitioner; Admitting Provider Internal Medicine; Emergency Provider Emergency Medicine; PCP Family Medicine; Visit Provider Student in an Organized Health Care Education/Training Program
DX: E11.10 Type 2 diabetes mellitus with ketoacidosis without coma (principal); G93.40 Encephalopathy, unspecified; E11.42 Type 2 diabetes mellitus with diabetic polyneuropathy; E11.65 Type 2 diabetes mellitus with hyperglycemia; E87.8 Other disorders of electrolyte and fluid balance, not elsewhere classified; E86.0 Dehydration; E03.9 Hypothyroidism, unspecified; G25.81 Restless legs syndrome; I87.2 Venous insufficiency (chronic) (peripheral); M79.7 Fibromyalgia; Z90.710 Acquired absence of both cervix and uterus; Z91.14 Patient's other noncompliance with medication regimen; Z79.01 Long term (current) use of anticoagulants; Z91.199 Patient's noncompliance with other medical treatment and regimen due to unspecified reason; Z20.822 Contact with and (suspected) exposure to COVID-19; Z79.4 Long term (current) use of insulin; Z86.16 Personal history of COVID-19; Z85.43 Personal history of malignant neoplasm of ovary; Z86.718 Personal history of other venous thrombosis and embolism
CPT/HCPCS: 36415; 36600; 71045; 80048; 80053; 80202; 81001; 82010; 82805; 82948; 83605; 83690; 83735; 84100; 84145; 84484; 85025; 85027; 87040; 87636; 93005; 99285; A9270; C1751; J0692; J1815; J3370; J3480; J7030; J7050

== ENCOUNTER 2022-03-15 09:20 | Outpatient (CLI) | payer MEDICARE, OTHER, SELFPAY ==
[2022-03-15 09:42] LABS: Hematocrit 32.2 % (35.0-42.0); Hemoglobin 9.8 g/dL (11.7-13.8); Mean Corpuscular HGB Conc 30.4 g/dL (32.0-36.0); Mean Corpuscular Hemoglobin 31.4 pg (27.0-31.0); Mean Corpuscular Volume 103.2 fL (78.0-102.0); Mean Platelet Volume 9.2 fl (9.2-11.8); Platelet Count Result 332 K/mm3 (150-420); Red Blood Count 3.12 M/mm3 (4.20-5.40); Red Cell Distribution Width 14.6 % (11.6-14.4); White Blood Count 5.1 K/mm3 (4.8-10.8)
[2022-03-15 09:58] LABS: Alanine Aminotransferase 35 U/L (14-59); Albumin Level 3.2 g/dL (3.4-5.0); Alkaline Phosphatase 221 U/L (46-116); Anion Gap 6 mmol/L (8-16); Aspartate Amino Transferase 23 U/L (15-37); Bilirubin,Total 0.3 mg/dL (0.00-1.00); Blood Urea Nitrogen 32 mg/dL (7-18); Calcium 9.7 mg/dL (8.5-10.1); Carbon Dioxide 26 mmol/L (21-32); Chloride 91 mmol/L (98-108); Estimated Glomerular Filt Rate > 60; Potassium 5.5 mmol/L (3.5-5.1); Sodium 123 mmol/L (136-145); Total Protein 7.5 g/dL (6.4-8.2)
[2022-03-15 10:32] LABS: Glucose > 800 mg/dL (70-99); Hemoglobin A1C > 16.0 % (<5.7); Osmolality Calculated 302 mOsm/kg (285-295)
[2022-03-15 11:14] LABS: Eosinophils Percent Auto 1.2 % (1.0-6.0); Immature Granulocyte Percent A 0.2 % (0.0-0.0); Lymphocytes Percent Auto 15.8 % (18.0-42.0); Monocytes Percent Auto 8.4 % (2.0-11.0); Neutrophils Percent Auto 73.8 % (50.0-70.0)
[2022-03-15 11:15] LABS: Basophils Absolute Auto 0.03 K/mm3 (0.00-0.10); Basophils Percent Auto 0.6 % (0.0-1.0); Eosinophils Absolute Auto 0.06 K/mm3 (0.02-0.50); Immature Granulocyte Absolute 0.01 K/mm3 (0.00-0.00); Lymphocytes Absolute Auto 0.81 K/mm3 (1.10-4.50); Monocytes Absolute Auto 0.43 K/mm3 (0.10-0.90); Neutrophils Absolute Auto 3.8 K/mm3 (1.7-7.2)
== END 2022-03-15 09:21 | disposition home or self-care (01) ==
LOC: CHSLAB 09:23
PROVIDERS: PCP Family Medicine; Visit Provider Nurse Practitioner Family
DX: I87.2 Venous insufficiency (chronic) (peripheral) (principal); E11.10 Type 2 diabetes mellitus with ketoacidosis without coma; I82.409 Acute embolism and thrombosis of unspecified deep veins of unspecified lower extremity; Z91.199 Patient's noncompliance with other medical treatment and regimen due to unspecified reason
CPT/HCPCS: 36415; 80053; 82010; 83036; 85025

== ENCOUNTER 2022-03-15 12:09 | Observation (INO) | payer MEDICARE, OTHER, SELFPAY ==
[2022-03-15] VITALS (18 sets, daily range): BP systolic 93–137; BP diastolic 45–69; PULSE 61–80; RESP 11–22; TEMP 36.5–37; O2SAT 96–100; BMI 23.8
--- NOTE | ~2022-03-15 | US_ITS ---
EXAMINATION: US venous doppler [facility] DATE: 03/15/2022 22:56 INDICATION: Right lower limb pain and swelling. TECHNIQUE: Grayscale ultrasound images without and with compression and Doppler ultrasound images of the bilateral lower extremity veins were obtained. COMPARISON: Ultrasound 02/12/2022 FINDINGS: The visualized portions of right profunda (deep) femoral vein, popliteal vein, peroneal veins, yarrow gatherer ior tibial veins, and greater saphenous vein outflow are patent. There is thrombus in right common fe moral vein and femoral vein. The visualized portions of left common femoral vein, profunda femoral vein, femoral vein, popliteal v ein, peroneal veins, posterior tibial veins, and greater saphenous vein outflow are patent. IMPRESSION: 1. Deep vein thrombosis involving right common femoral vein and femoral vein with interval improveme nt in distribution. Reviewed, dictated and finalized at location A. ER/GUIDE IMPRESSION: 1. Deep vein thrombosis involving right common femoral vein and femoral vein w ith interval improvement in distribution.
--- NOTE | ~2022-03-15 | CT_ITS ---
Clinical Indication: Pulmonary embolus CT Scan of the Chest with Contrast: Technique: Contiguous sections were acquired throughout the chest after intravenous administration of 100 cc of Omnipaque 350. Dose reduction technique was used on this scan by utilizing automated expos ure control and iterative reconstruction technique. The dose-length product (DLP) was 152.76 mGy-cm. COMPARISON: 10/27/2020 Findings: There is no evidence of any significant mediastinal, hilar or axillary lymphadenopathy. There is pulm onary embolus within a segmental branch in the right lower lobe pulmonary arterial tree, with lack of opacification of the right lower lobe pulmonary segmental arterial tree distal to this location (axi al image [id number]). No central pulmonary embolus seen otherwise. There is no evidence of aortic dissec tion or aneurysm. There is no evidence of pleural or pericardial effusion. There is minimal haziness the right lung base. No suspicious pulmonary nodules seen. Images through the upper abdomen reveal no abnormalities. Impression: Pulmonary embolus within a segmental branch in the right lower lobe pulmonary arterial tree, as adam led above. Probable minimal bibasilar atelectatic change. Very early developing right basilar pulmonary infarct is a potential alternative consideration. Findings reported to the covering physician at the time of this reading. Reviewed, dictated and finalized at location . AND ARRIVAL ATTENDANT Impression: Pulmonary embolus within a segmental branch in the right lower lobe pulmonary a rterial tree, as detailed above. Probable minimal bibasilar atelectatic change. Very early developing right basi lar pulmonary infarct is a potential alternative consideration. Findings reported to the covering physician at the time of this reading.
[2022-03-15 13:43] LABS: Basophils Percent Auto 0.8 % (0.2-1.2); Eosinophils Absolute Auto 0.1 K/mm3 (0-0.3); Eosinophils Percent Auto 1.4 % (0-4.4); Hematocrit 31.1 % (37.0-47.0); Hemoglobin 9.6 g/dL (12.0-15.0); Immature Granulocyte Absolute 0.03 K/mm3 (0.00-0.031); Immature Granulocyte Percent A 0.6 % (0-0.5); Lymphocytes Absolute Auto 1.05 K/mm3 (0.9-3.2); Mean Corpuscular HGB Conc 30.9 g/dl (32-36); Mean Corpuscular Hemoglobin 30.6 pg (26-34); Mean Platelet Volume 9.2 fl (7.4-10.4); Monocytes Absolute Auto 0.6 K/mm3 (0.1-0.6); Monocytes Percent Auto 12.2 % (2.6-8.5); Neutrophils Absolute Auto 3.2 K/mm3 (1.3-6.7); Platelet Count Result 333 k/mm3 (150-375); Red Blood Count 3.14 M/mm3 (4.2-5.4); Red Cell Distribution Width 14.7 % (11.5-14.5)
[2022-03-15 13:58] LABS: Alanine Aminotransferase 34 U/L (6-35); Albumin Level 3.9 g/dL (3.5-5.1); Alkaline Phosphatase 204 U/L (38-126); Anion Gap 7 mmol/L (8-16); Aspartate Amino Transferase 40 U/L (14-36); Bilirubin,Total 0.3 mg/dL (0.2-1.3); Blood Urea Nitrogen 33 mg/dL (7-17); Calcium 9.9 mg/dL (8.4-10.2); Carbon Dioxide 27 mmol/L (22-30); Chloride 95 mmol/L (98-107); Estimated CRCL calculation 76 ml/min; Estimated Glomerular Filt Rate > 60; Potassium 5.3 mmol/L (3.4-5.0); Sodium 129 mmol/L (137-145)
[2022-03-15 14:03] LABS: Beta-Hydroxybutyrate/Acetoacetate 0.34 mmol/L (0.02-0.27)
[2022-03-15] MEDS: MORPHINE SULFATE (*CRX) 4 MG/ML INJ IV PUSH (14:03)
[2022-03-15 14:07] LABS: Glucose 744 mg/dL (65-110)
[2022-03-15] MEDS: LACTATED RINGERS 1,000 ML 999 ML IV CONT (14:18)
--- NOTE | 2022-03-15 14:53 | ED.EXTPRO ---
HPI - Extremity Problem General Chief complaint: Extremity Problem,Nontraumatic Stated complaint: right leg swelling and pain Time Seen by Provider: 03/15/22 13:21 History of Present Illness HPI Narrative: 71yoF h/o DM and DVT, inadherent w/ medications resulting in frequent admissions, p/w swelling/pain to RLE and hyperglycemia despite her being on eliquis and insulin; she does admit she has missed many doses of her eliquis and also that she only takes about 3U of her insulin at a time since she lost her glucometer. Reporting pain in RLE. Related Data Home Medications Medication Instructions Recorded Confirmed insulin glargine 100 unit/mL 35 unit subcut HS 03/15/22 03/15/22 subcutaneous solution (Lantus U-100 Insulin) Allergies Allergy/AdvReac Type Severity Reaction Status Date / Time banana Allergy Severe SEVERE Verified 03/15/22 08:42 HIVES aspirin AdvReac Intermediate Nausea and Verified 03/15/22 08:42 Vomiting fluoxetine [From Prozac] AdvReac Hallucinati Verified 03/15/22 08:42 ng Review of Systems Review of Systems: CONST: No fever. HEENT: No sore throat C/V: No chest pain RESP: No cough GI: No abdominal pain : No dysuria. M/S: RLE pain/swelling SKIN: Redness RLE NEURO: [No headache or focal numbness or weakness] PSYCH: [No depression] [facility] Past Medical History Medical History Depression Diabetic peripheral neuropathy Fibromyalgia Hypothyroidism Memory change Ovarian cancer At the age of 33, status post hysterectomy. Patient states that half an ovary was left during surgery. She required no further treatment. Pneumonia due to COVID-19 virus (09/2020) Restless leg syndrome Shingles Type 2 diabetes mellitus Hemoglobin A1c was > 14% August 2021 C-peptide 0.63. Surgical History Surgical History History of tonsillectomy (1970) History of total hysterectomy with bilateral salpingo-oophorectomy (BSO) (1983) History of tubal ligation (1983) Family History Family History Grandparent Family history of premature coronary heart disease, Onset Age: 64 Father Family history of respiratory disorder, Onset Age: 87 Family history of cardiovascular disease Patient's father is Family history of Alzheimer's disease Cerebrovascular accident Mother Family history of primary malignant neoplasm of liver, Onset Age: 64 Family history of malignant neoplasm Patient's mother is , Onset Age: 64 Family history of malignant neoplasm of breast in first degree relative Sibling Heart attack Sibling Heart attack Social History Social History Social History: The patient is . She lives in her own home in [place], [place]. Her daughter Mary used to live with her but it does not sound as though she does any longer, unclear. She has 2 daughters, and designates her daughter Jose Posey, as her surrogate decision maker. She is a lifelong nonsmoker. She drinks perhaps 4-12 alcoholic beverages a week. No drug use. The patient tells me that she does not drink anymore. Code status: Full code. Smoking status: Never smoker Second hand tobacco smoke exposure: No Alcohol intake: former Substance use: never Other substance usage details: per ER note 4-12 drinks per week Lack of Transportation: No Lack of Food: Never True Current Housing: I Have Housing Concerned About Future Housing: No Difficulty Paying Gas/Electric Bills: No Difficulty Paying for Meds: No Currently Unemployed: No Education: High School Diploma/GED Difficulty w/ Childcare or Family Care: No Spiritual care concerns: No Course Vital Signs Vital signs: Vital Signs Temperature 98.6 F 03/15/22 12:55 Pulse Rate 70 03/15/22 12:
[2022-03-15 14:57] LABS: Glucose Point of Care > 500 mg/dl (65-105)
[2022-03-15 15:18] LABS: Influenza A QL RT-PCR Negative (Negative); Influenza B QL RT-PCR Negative (Negative); RSV RNA, RT-PCR Negative (Negative); SARS-CoV-2 RNA PCR Negative
--- NOTE | 2022-03-15 15:30 | PM.IMHP ---
H&P: HPI History of Present Illness Date/Time: 03/15/22 15:30 Chief Complaint: Right leg pain. Narrative: This is a 71-year-old female with insulin-dependent diabetes, hypertension, hyperlipidemia, and hypothyroidism who presented to the emergency department via EMS from home for evaluation of right leg pain. She is well known to hospitalist service with frequent admissions, many for DKA. In fact she was just discharged from the hospital on 03/09/2022 for the same. She returns today with complaints pain throughout the entire right leg and she has noticed a faint rash which has appeared on the she had in the last 24 hours. She is afraid that she is developing an infection in the leg and that she may lose it. Of note she was diagnosed with an extensive DVT throughout the right lower limb on 02/12/2022 and she has been prescribed Eliquis. She states compliance with this drug however admits that she has missed a dose here or there. She was afebrile on arrival. WBC count was normal. Once again her glucose was significantly elevated at greater than 800 though she had a normal serum bicarb and a normal anion gap. She is being admitted in this setting for IV fluid rehydration and correction of her hyperglycemia. She states compliance with her insulin though I am not certain if that is true as her recent hemoglobin A1c was greater than 16%. She denies fever, chills, sweats, chest and pleuritic pain pain, shortness a breath, cough, nausea, vomiting, diarrhea, and dysuria. Review of Systems Review of Systems: Twelve systems were reviewed and are negative except for as per HPI. [facility] Past Medical History Medical History Depression Diabetic peripheral neuropathy Fibromyalgia Hypothyroidism Memory change Ovarian cancer At the age of 33, status post hysterectomy. Patient states that half an ovary was left during surgery. She required no further treatment. Pneumonia due to COVID-19 virus (09/2020) Restless leg syndrome Shingles Type 2 diabetes mellitus Hemoglobin A1c was > 14% August 2021 C-peptide 0.63. Surgical History Surgical History History of tonsillectomy (1970) History of total hysterectomy with bilateral salpingo-oophorectomy (BSO) (1983) History of tubal ligation (1983) Family History Family History Grandparent Family history of premature coronary heart disease, Onset Age: 64 Father Family history of respiratory disorder, Onset Age: 87 Family history of cardiovascular disease Patient's father is Family history of Alzheimer's disease Cerebrovascular accident Mother Family history of primary malignant neoplasm of liver, Onset Age: 64 Family history of malignant neoplasm Patient's mother is , Onset Age: 64 Family history of malignant neoplasm of breast in first degree relative Sibling Heart attack Sibling Heart attack Social History Social History Social History: The patient is . She lives in her own home in [place], [place]. Her daughter Mary used to live with her but it does not sound as though she does any longer, unclear. She has 2 daughters, and designates her daughter Jose Posey, as her surrogate decision maker. She is a lifelong nonsmoker. She drinks perhaps 4-12 alcoholic beverages a week. No drug use. The patient tells me that she does not drink anymore. Code status: Full code. Smoking status: Never smoker Second hand tobacco smoke exposure: No Alcohol intake: former Substance use: never Other substance usage details: per ER note 4-12 drinks per week Lack of Transportation: No Lack of Food: Never True Current Housing: I Have Housing Concerned About Future Housing: No Difficulty Paying Gas/Electric Bills: No Diff
[2022-03-15] MEDS: SODIUM CHLORIDE 0.9% IV 1,000 ML 999 ML IV CONT (15:43)
[2022-03-15] MEDS: INSULIN HUMAN REGULAR (*BKC) 100 UNITS/ML 10 UNITS SUB-Q (15:44)
[2022-03-15] MEDS: ENOXAPARIN 60 MG/0.6 ML SYRINGE SUB-Q (15:51)
--- NOTE | 2022-03-15 16:31 | ADMGEN ---
This patient, Karly Leslie, was admitted to IMU Room 213-01 at 1610. Patient/family oriented to hospital policies and general routines including ID bracelet, bed and alarms, visiting hours, pain management, procedures, bathroom and other care routines, personal items, smoking policy, room service/diet, and visiting hours. Information on how to activate the Rapid Response Team has been discussed. Patient/Family are encouraged to report perceived risks to care and to ask questions if they do not understand what they are told or what they should do.
[2022-03-15 16:36] LABS: Glucose Point of Care > 500 mg/dl (65-105)
[2022-03-15 18:10] LABS: Anion Gap 7 mmol/L (8-16); Blood Urea Nitrogen 23 mg/dL (7-17); Calcium 9.7 mg/dL (8.4-10.2); Carbon Dioxide 26 mmol/L (22-30); Chloride 99 mmol/L (98-107); Estimated CRCL calculation 97 ml/min; Estimated Glomerular Filt Rate > 60; Glucose 295 mg/dL (65-110); Potassium 3.9 mmol/L (3.4-5.0); Sodium 132 mmol/L (137-145)
[2022-03-15 19:59] LABS: Glucose Point of Care 152 mg/dl (65-105)
[2022-03-15] MEDS: HYDROcodone/acetaminophen (*CRX) 5-325 MG TABLET 1 TAB PO (21:03)
[2022-03-15] MEDS: INSULIN GLARGINE (*BKC) 100 UNITS/ML 35 UNITS SUB-Q (21:03)
[2022-03-15] MEDS: PRAMIPEXOLE 1 MG TABLET 3 MG PO (21:19)
[2022-03-15] MEDS: APIXABAN 5 MG TABLET PO (21:20)
[2022-03-16] VITALS (14 sets, daily range): BP systolic 101–127; BP diastolic 46–65; PULSE 60–93; RESP 18–24; TEMP 36–36.6; O2SAT 94–98
--- NOTE | 2022-03-16 | ECHO_ITS ---
Patient Info Name: Karly Leslie Age: 71 years : 1950 Gender: Female Ht: 60 in Wt: 121 lbs BSA: 1.53 m2 HR: 65 bpm BP: 101 / 63 mmHg Heart Rhythm: Sinus Rhythm Technical Quality: Fair Exam Date: 03/16/2022 1:26 PM Exam Location: [facility] Pulmonary Patient Status: Inpatient Admit Date: 03/15/2022 Staff Ordering Physician: Dylon Matta MD Consulting Services Manager: Jenna Espinoza RDCS Attending Provider: Cole Steward MD Exam Type: CA echo doppler color flow Study Info Indications - PE Complete two-dimensional, color flow and Doppler transthoracic echocardiogram is performed. Summary 1. Complete two-dimensional, color flow and Doppler transthoracic echocardiogram is performed. 2. Left ventricular chamber dimension is normal. 3. Left ventricular systolic function is hyperdynamic, estimated at >70%. 4. The left ventricular diastolic function is abnormal. 5. E/e' 10 is mildly elevated. 6. Left atrial chamber dimension is mildly enlarged. 7. There is mild aortic valve sclerosis. 8. There is mild mitral valve regurgitation. 9. There is trace tricuspid valve regurgitation. 10. No pulmonary hypertension, estimated pulmonary arterial systolic pressure is 37 mmHg. 11. There is trace pulmonic regurgitation. 12. There is trivial pericardial effusion. Left Ventricle E/e' 10 is mildly elevated. Left ventricular chamber dimension is normal. Left ventricular systolic function is hyperdynamic, estimated at >70%. The left ventricular diastolic function is abnormal. Right Ventricle Right ventricular systolic function is normal and with normal TAPSE 2.5 cm. Right ventricular chamber dimension is normal. Left Atria Left atrial chamber dimension is mildly enlarged. Right Atria Right atrial chamber dimension is normal. Aortic Valve The aortic valve is trileaflet. There is mild aortic valve sclerosis. There is no aortic valve stenosis. There is no aortic valve regurgitation. Pulmonic Valve There is trace pulmonic regurgitation. Mitral Valve There is no mitral valve stenosis. There is mild mitral valve regurgitation. Tricuspid Valve There is trace tricuspid valve regurgitation. No pulmonary hypertension, estimated pulmonary arterial systolic pressure is 37 mmHg. Pericardium/Pleural There is trivial pericardial effusion. Inferior Vena Cava Normal inferior vena cava with >50% collapse upon inspiration consistent with normal right atrial pressure, 5 mmHg. Aorta The aortic root size at the sinus of Valsalva is normal. Left Ventricular Outflow Tract Name Value Normal LVOT 2D LVOT Diameter 2.0 cm LVOT Doppler LVOT Peak Gradient 7 mmHg LVOT Mean Gradient 3 mmHg LVOT VTI 25 cm LVOT VTI/AV VTI Ratio 0.9 LVOT Stroke Volume 77 ml LVOT CO 5.0 l/min LVOT CI 3.3 l/min/m2 Pulmonic Valve Name
[2022-03-16] MEDS: ACETAMINOPHEN 325 MG TABLET 650 MG PO (03:57)
[2022-03-16 05:01] LABS: Anion Gap 4 mmol/L (8-16); Blood Urea Nitrogen 17 mg/dL (7-17); Calcium 9.4 mg/dL (8.4-10.2); Carbon Dioxide 30 mmol/L (22-30); Chloride 101 mmol/L (98-107); Estimated CRCL calculation 97 ml/min; Estimated Glomerular Filt Rate > 60; Glucose 160 mg/dL (65-110); Magnesium 2.1 mg/dL (1.6-2.3); Potassium 3.5 mmol/L (3.4-5.0); Sodium 135 mmol/L (137-145)
[2022-03-16 10:25] LABS: Glucose Point of Care 136 mg/dl (65-105)
--- NOTE | 2022-03-16 11:46 | PC.NURSE ---
Patient admitted to being noncompliant with Eliquis for prior DVT diagnosis. New PE diagnosis this stay. According to Dr Matta, okay to continue Eliquis seeing as patient was noncompliant with Eliquis rather than failing the drug.
[2022-03-16 12:00] LABS: Glucose Point of Care 81 mg/dl (65-105)
[2022-03-16] MEDS: HYDROcodone/acetaminophen (*CRX) 5-325 MG TABLET 1 TAB PO ×2 (12:29→20:21)
[2022-03-16] MEDS: APIXABAN 5 MG TABLET PO ×2 (12:30→20:22)
--- NOTE | 2022-03-16 17:36 | PM.IMPN ---
Progress Note: A&P Assessment and Plan (1) Type 2 diabetes mellitus with hyperglycemia: Code(s): E11.65 - Type 2 diabetes mellitus with hyperglycemia Status: Acute (2) Electrolyte abnormality: Code(s): E87.8 - Other disorders of electrolyte and fluid balance, not elsewhere classified Status: Acute (3) Right leg DVT: Code(s): I82.401 - Acute embolism and thrombosis of unspecified deep veins of right lower extremity Status: Acute (4) Unable to care for self: Code(s): Z78.9 - Other specified health status Status: Acute Plan The patient presents to the ER today for evaluation of right leg pain. She was diagnosed with an extensive right leg DVT last month and has been prescribed Eliquis though she admits that she has missed a dose here or there. Venous Doppler ultrasound ordered tomorrow to re-evaluate. Given the extensive nature of the DVT and intermittent noncompliance, chest CTA has been ordered to rule out possibility of emboli. No evidence of compartment syndrome on exam. I do not think that she has underlying infection in the leg, more over the color changes are likely related to the swelling. She is being hydrated and has been started on sliding scale insulin in attempts to get her glucose down. She states compliance with her Lantus, 35 units each night, however her recent A1c was greater than 16%. Her sodium was a bit low on potassium was a bit high today, both should improve with IV fluids and insulin. Repeat BMP pending this evening to ensure it is correcting appropriately. Given her multiple hospitalizations and the fact that she is in our hospital more than she has at home, I think she would benefit from an assisted living facility at the least. She has continued to refuse placement, however. Her home medications will be reviewed and resumed as appropriate. 03/16/2022 interval history: 71-year-old female with history of uncontrolled diabetes recurrent DKA due to non compliant with her diabetic medication and admission presented with a complaint right lower extremity pain as patient has history of DVT and on Eliquis repeat Doppler ultrasound showed patient is positive for DVT and to further evaluate patient had CTA of the chest that showed patient has a pulmonary emboli to further evaluate will do the cardiac echo, patient does states this is not very compliant with her Eliquis and this may have resulted continues DVT and now patient has a PE. discussed with the patient importance of compliant with her diabetic medication as well as her Eliquis, patient unable to manage her medication and patient does not want to go to half-way. Subjective Date/time seen: 03/16/22 17:36 Narrative: This is a 71-year-old female with insulin-dependent diabetes, hypertension, hyperlipidemia, and hypothyroidism who presented to the emergency department via EMS from home for evaluation of right leg pain. She is well known to hospitalist service with frequent admissions, many for DKA. In fact she was just discharged from the hospital on 03/09/2022 for the same. She returns today with complaints pain throughout the entire right leg and she has noticed a faint rash which has appeared on the she had in the last 24 hours. She is afraid that she is developing an infection in the leg and that she may lose it. Of note she was diagnosed with an extensive DVT throughout the right lower limb on 02/12/2022 and she has been prescribed Eliquis. She states compliance with this drug however admits that she has missed a dose here or there. She was afebrile on arrival. WBC count was normal. Once again her glucose was significantly elevated at greater than 800 though she had a normal serum bicarb and a normal anion gap. She is being admitted in this setting for IV fluid rehydration and correction of her hyperglycemia. She states compliance with her insulin though I am not certain if that is true as her recent hemoglobin A1c was greater than 1
[2022-03-16 18:05] LABS: Glucose Point of Care 174 mg/dl (65-105)
[2022-03-16 19:58] LABS: Glucose Point of Care 450 mg/dl (65-105)
[2022-03-16] MEDS: PRAMIPEXOLE 1 MG TABLET 3 MG PO (20:22)
[2022-03-16] MEDS: INSULIN GLARGINE (*BKC) 100 UNITS/ML 35 UNITS SUB-Q (20:23)
[2022-03-16] MEDS: INSULIN ASPART (*BKC) 100 UNITS/ML SUB-Q (21:15)
[2022-03-17] VITALS (8 sets, daily range): BP systolic 127–135; BP diastolic 76–84; PULSE 64–94; RESP 20; TEMP 36–36.4; O2SAT 97–99
[2022-03-17 08:54] LABS: Glucose Point of Care 104 mg/dl (65-105)
[2022-03-17] MEDS: HYDROcodone/acetaminophen (*CRX) 5-325 MG TABLET 1 TAB PO (09:40)
[2022-03-17] MEDS: APIXABAN 5 MG TABLET PO (09:40)
[2022-03-17] MEDS: INSULIN ASPART (*BKC) 100 UNITS/ML SUB-Q ×2 (09:42→14:00)
[2022-03-17 12:26] LABS: Glucose Point of Care 110 mg/dl (65-105)
--- NOTE | 2022-03-17 13:46 | PM.DS ---
DS: Admitting Diagnosis Discharge Date 03/17/2022 Admitting Diagnosis right leg pain and swelling DS: Discharge Diagnosis Discharge Diagnosis (1) Type 2 diabetes mellitus with hyperglycemia: Code(s): E11.65 - Type 2 diabetes mellitus with hyperglycemia Status: Acute (2) Electrolyte abnormality: Code(s): E87.8 - Other disorders of electrolyte and fluid balance, not elsewhere classified Status: Acute (3) Right leg DVT: Code(s): I82.401 - Acute embolism and thrombosis of unspecified deep veins of right lower extremity Status: Acute (4) Unable to care for self: Code(s): Z78.9 - Other specified health status Status: Acute Plan The patient presents to the ER today for evaluation of right leg pain. She was diagnosed with an extensive right leg DVT last month and has been prescribed Eliquis though she admits that she has missed a dose here or there. Venous Doppler ultrasound ordered tomorrow to re-evaluate. Given the extensive nature of the DVT and intermittent noncompliance, chest CTA has been ordered to rule out possibility of emboli. No evidence of compartment syndrome on exam. I do not think that she has underlying infection in the leg, more over the color changes are likely related to the swelling. She is being hydrated and has been started on sliding scale insulin in attempts to get her glucose down. She states compliance with her Lantus, 35 units each night, however her recent A1c was greater than 16%. Her sodium was a bit low on potassium was a bit high today, both should improve with IV fluids and insulin. Repeat BMP pending this evening to ensure it is correcting appropriately. Given her multiple hospitalizations and the fact that she is in our hospital more than she has at home, I think she would benefit from an assisted living facility at the least. She has continued to refuse placement, however. Her home medications will be reviewed and resumed as appropriate. 03/16/2022 interval history: 71-year-old female with history of uncontrolled diabetes recurrent DKA due to non compliant with her diabetic medication and admission presented with a complaint right lower extremity pain as patient has history of DVT and on Eliquis repeat Doppler ultrasound showed patient is positive for DVT and to further evaluate patient had CTA of the chest that showed patient has a pulmonary emboli to further evaluate will do the cardiac echo, patient does states this is not very compliant with her Eliquis and this may have resulted continues DVT and now patient has a PE. discussed with the patient importance of compliant with her diabetic medication as well as her Eliquis, patient unable to manage her medication and patient does not want to go to retirement. DS: Summary Hospital Course Reason for hospitalization: Right leg pain. Narrative: This is a 71-year-old female with insulin-dependent diabetes, hypertension, hyperlipidemia, and hypothyroidism who presented to the emergency department via EMS from home for evaluation of right leg pain. She is well known to hospitalist service with frequent admissions, many for DKA. In fact she was just discharged from the hospital on 03/09/2022 for the same. She returns today with complaints pain throughout the entire right leg and she has noticed a faint rash which has appeared on the she had in the last 24 hours. She is afraid that she is developing an infection in the leg and that she may lose it. Of note she was diagnosed with an extensive DVT throughout the right lower limb on 02/12/2022 and she has been prescribed Eliquis. She states compliance with this drug however admits that she has missed a dose here or there. She was afebrile on arrival. WBC count was normal. Once again her glucose was significantly elevated at greater than 800 though she had a normal serum bicarb and a normal anion gap. She is being admitted in this setting for IV fluid rehydration and correction of her
== END 2022-03-17 16:10 | disposition home health service (06) ==
LOC: ANHED 14:02 → ANHIMU 16:21
PROVIDERS: Physician Assistant; Admitting Provider Internal Medicine; Emergency Provider Emergency Medicine; PCP Family Medicine; Visit Provider Family Medicine
DX: E11.65 Type 2 diabetes mellitus with hyperglycemia (principal); E87.8 Other disorders of electrolyte and fluid balance, not elsewhere classified; I82.401 Acute embolism and thrombosis of unspecified deep veins of right lower extremity; Z78.9 Other specified health status; I26.99 Other pulmonary embolism without acute cor pulmonale; E11.42 Type 2 diabetes mellitus with diabetic polyneuropathy; M79.7 Fibromyalgia; E03.9 Hypothyroidism, unspecified; E78.5 Hyperlipidemia, unspecified; M79.661 Pain in right lower leg; M79.89 Other specified soft tissue disorders; Z91.14 Patient's other noncompliance with medication regimen; Z20.822 Contact with and (suspected) exposure to COVID-19; G25.81 Restless legs syndrome; I08.3 Combined rheumatic disorders of mitral, aortic and tricuspid valves; F32.A Depression, unspecified; F10.90 Alcohol use, unspecified, uncomplicated; Z90.710 Acquired absence of both cervix and uterus; Z86.16 Personal history of COVID-19; Z86.39 Personal history of other endocrine, nutritional and metabolic disease; Z85.43 Personal history of malignant neoplasm of ovary; Z87.01 Personal history of pneumonia (recurrent); Z86.718 Personal history of other venous thrombosis and embolism; Z79.4 Long term (current) use of insulin; Z79.01 Long term (current) use of anticoagulants; Z79.899 Other long term (current) drug therapy; Z79.1 Long term (current) use of non-steroidal anti-inflammatories (NSAID); Z80.8 Family history of malignant neoplasm of other organs or systems
CPT/HCPCS: 36415; 71275; 80048; 80053; 82010; 82948; 83735; 85025; 86140; 87040; 87637; 93306; 93970; 96361; 96365; 96372; 96375; 99285; A9270; G0378; J0690; J1650; J1815; J2270; J7030; J7120; Q9967

== ENCOUNTER 2022-03-22 14:30 | Outpatient (CLI) | payer MEDICARE, OTHER, SELFPAY ==
[2022-03-22 14:45] LABS: HCO3 VBG 27.4 mEq/l (24.0-30.0); PCO2 VBG 45.8 mmHg (42.0-48.0)
[2022-03-22 14:46] LABS: Add Urine Microscopic? YES; Appearance Urine Clear (Clear); Bilirubin Urine Negative (Negative); Blood Urine Negative (Negative); Color Urine Light Yellow (Yellow); Glucose Urine UA 3+ (Negative); Ketones Urine Negative (Negative); Leukocyte Esterase Ur Negative (Negative); Nitrate Urine Negative (Negative); PO2 VBG 25.5 mmHg (35.0-45.0); Protein Urine Negative (Negative); Urobilinogen Urine 0.2 mg/dL (0.2-1.0); pH Urine 6.5 (5.0-8.0)
[2022-03-22 14:47] LABS: Device ROOM AIR
[2022-03-22 14:52] LABS: Bacteria Urine Trace /hpf; RBC Urine 0-2 /hpf (0-2); Squamous Epithelial Cell Urine Few /hpf (Few); WBC Urine 0-3 /hpf (0-3)
== END 2022-03-22 14:31 | disposition home or self-care (01) ==
LOC: CHSLAB 14:32
PROVIDERS: PCP Family Medicine; Visit Provider Nurse Practitioner Family
DX: E11.65 Type 2 diabetes mellitus with hyperglycemia (principal)
CPT/HCPCS: 36415; 81001; 82803

== ENCOUNTER 2022-03-25 17:02 | Inpatient (IN) | payer MEDICARE, OTHER, SELFPAY ==
[2022-03-25] VITALS (16 sets, daily range): BP systolic 116–158; BP diastolic 63–82; PULSE 80–124; RESP 15–23; TEMP 37; O2SAT 98–100; BMI 21.3
[2022-03-25] MEDS: SODIUM CHLORIDE 0.9% IV 1,000 ML 999 ML IV CONT ×2 (16:57→17:50)
[2022-03-25 17:07] LABS: Glucose Point of Care > 500 mg/dl (65-105)
--- NOTE | 2022-03-25 17:19 | ED.RECABL ---
HPI - Recheck/Abnormal Lab/Rx General Chief Complaint: Recheck/Abnormal Lab/Rx <Ava Iraheta PA-C - Last Filed: 03/25/22 19:00> Stated Complaint: DKA <Ava Iraheta PA-C - Last Filed: 03/25/22 19:00> Time Seen by Provider: 03/25/22 17:08 <PETR Pacheco Last Filed: 03/25/22 19:00> Source: patient and EMS <Ava Iraheta PA-C - Last Filed: 03/25/22 19:00> Mode of arrival: EMS <PETR Pacheco Last Filed: 03/25/22 19:00> Limitations: no limitations <PETR Pacheco Last Filed: 03/25/22 19:00> History of Present Illness HPI narrative: This is a 71-year-old female that presents to the emergency department for high blood sugar. Reports history of diabetes mellitus. She has not been taking her insulin as prescribed. Reports she forgets. She does report that she lives with her daughter who is supposed to help her with her medications. Reports her blood sugar has been in the 400s and she started vomiting which prompted her to be seen for concern of DKA. Denies fever, cough, chest pain, shortness of breath, abdominal pain, or dysuria. <Ava Iraheta PA-C - Last Filed: 03/25/22 19:00> Related Data Allergies/Adverse Reactions: Allergies Allergy/AdvReac Type Severity Reaction Status Date / Time banana Allergy Severe SEVERE Verified 03/22/22 13:08 HIVES aspirin AdvReac Intermediate Nausea and Verified 03/22/22 13:08 Vomiting fluoxetine [From Prozac] AdvReac Hallucinati Verified 03/22/22 13:08 ng <PETR Pacheco Last Filed: 03/25/22 19:00> Review of Systems Review of Systems: CONSTITUTIONAL: Denies fever ENT: Denies rhinorrhea, congestion, sore throat CARDIOVASCULAR: Denies chest pain, or edema. RESPIRATORY: Denies cough or dyspnea. GASTROINTESTINAL: Reports nausea and vomiting. Denies abdominal pain GENITOURINARY: Denies dysuria <Ava Iraheta PA-C - Last Filed: 03/25/22 19:00> All systems reviewed & are unremarkable except as noted in HPI and below <Ava Iraheta PA-C - Last Filed: 03/25/22 19:00> [facility] Past Medical History Medical History: Medical History Depression Diabetic peripheral neuropathy Fibromyalgia Hypothyroidism Memory change Ovarian cancer At the age of 33, status post hysterectomy. Patient states that half an ovary was left during surgery. She required no further treatment. Pneumonia due to COVID-19 virus (09/2020) Restless leg syndrome Shingles Type 2 diabetes mellitus Hemoglobin A1c was > 14% August 2021 C-peptide 0.63. <Ava Iraheta PA-C - Last Filed: 03/25/22 19:00> Surgical History Surgical History: Surgical History History of tonsillectomy (1970) History of total hysterectomy with bilateral salpingo-oophorectomy (BSO) (1983) History of tubal ligation (1983) <Ava Iraheta PA-C - Last Filed: 03/25/22 19:00> Family History Family History: Family History Grandparent Family history of premature coronary heart disease, Onset Age: 64 Father Family history of respiratory disorder, Onset Age: 87 Family history of cardiovascular disease Patient's father is Family history of Alzheimer's disease Cerebrovascular accident Mother Family history of primary malignant neoplasm of liver, Onset Age: 64 Family history of malignant neoplasm Patient's mother is , Onset Age: 64 Family history of malignant neoplasm of breast in first degree relative Sibling Heart attack Sibling Heart attack <PETR Pcaheco Last Filed: 03/25/22 19:00> Social History Social History: Social History Social History: The patient is . She lives in her own home in [place], [place]. Her daughter Laura
[2022-03-25 17:40] LABS: Base Excess ABG -16.3 mEq/l (+/-2.0); Fractional Inspired Oxygen 21 %; HCO3 ABG 9.8 mEq/l (22.0-26.0); Methemoglobin ABG 0.5 %THb (0-1.5); Oxygen Content ABG 17.3 %vol (16.0-22.0); Oxygen Saturation ABG 96.1 % (95.0-100.0); Oxyhemoglobin 94.8 % THb (90.0-100.0); PO2 ABG 96.8 mmHg (80.0-100.0); PO2 FiO2 Ratio Arterial Blood 4.61 %; Reduced Hemoglobin 3.7 %THb (0-5.0); Total Hemoglobin 12.9 g/dL (12.0-18.0)
[2022-03-25 17:41] LABS: Device ROOM AIR; Modified Allen's Test Pass; Site Drawn RIGHT RADIAL
[2022-03-25 17:45] LABS: pH ABG 7.211 (7.350-7.450)
[2022-03-25 17:47] LABS: Basophils Absolute Auto 0.1 K/mm3 (0.0-0.1); Basophils Percent Auto 0.7 % (0.2-1.2); Eosinophils Percent Auto 0.1 % (0-4.4); Hematocrit 40.1 % (37.0-47.0); Hemoglobin 12.4 g/dL (12.0-15.0); Immature Granulocyte Absolute 0.04 K/mm3 (0.00-0.031); Immature Granulocyte Percent A 0.5 % (0-0.5); Lymphocytes Absolute Auto 1.08 K/mm3 (0.9-3.2); Lymphocytes Percent Auto 12.4 % (18.3-44.2); Mean Corpuscular HGB Conc 30.9 g/dl (32-36); Mean Corpuscular Hemoglobin 31.2 pg (26-34); Monocytes Absolute Auto 0.4 K/mm3 (0.1-0.6); Monocytes Percent Auto 4.8 % (2.6-8.5); Neutrophils Absolute Auto 7.1 K/mm3 (1.3-6.7); Neutrophils Percent Auto 81.5 % (45.5-73.1); Platelet Count Result 556 k/mm3 (150-375); Red Blood Count 3.97 M/mm3 (4.2-5.4); Red Cell Distribution Width 13.9 % (11.5-14.5); White Blood Count 8.7 K/mm3 (4.5-10.0)
[2022-03-25 17:57] LABS: INR 1.2; Partial Thromboplastin Time 30.7 SECONDS (22.3-36.8); Prothrombin Time 14.7 Seconds (11.1-14.7)
[2022-03-25 18:07] LABS: Appearance Urine Clear (Clear); Bilirubin Urine 1+ (Negative); Blood Urine Trace-intact (Negative); Color Urine Yellow (Yellow); Glucose Urine UA 2+ mg/dL (Negative); Ketones Urine 4+ mg/dL (Negative); Leukocyte Esterase Ur Trace LEU/UL (Negative); Nitrate Urine Negative (Negative); Protein Urine Negative (Negative); Specific Grav Ur 1.015 (1.001-1.035); Urobilinogen Urine 0.2 mg/dL (<2.0)
[2022-03-25 18:15] LABS: Mucus Urine Rare /lpf; RBC Urine 21-50 /hpf (0-2); Squamous Epithelial Cell Urine Rare /hpf (Few)
[2022-03-25 18:16] LABS: Add Urine Microscopic? YES
[2022-03-25 18:25] LABS: Alanine Aminotransferase 26 U/L (6-35); Albumin Level 4.2 g/dL (3.5-5.1); Alkaline Phosphatase 182 U/L (38-126); Anion Gap 26 mmol/L (8-16); Aspartate Amino Transferase 22 U/L (14-36); Bilirubin,Total 0.5 mg/dL (0.2-1.3); Blood Urea Nitrogen 28 mg/dL (7-17); Calcium 9.9 mg/dL (8.4-10.2); Carbon Dioxide 9 mmol/L (22-30); Chloride 97 mmol/L (98-107); Estimated Glomerular Filt Rate > 60; Glucose 586 mg/dL (65-110); Magnesium 2.3 mg/dL (1.6-2.3); Phosphorus 5.8 mg/dL (2.5-4.5); Potassium 5.5 mmol/L (3.4-5.0); Sodium 132 mmol/L (137-145)
[2022-03-25 18:28] LABS: Influenza A QL RT-PCR Negative (Negative); Influenza B QL RT-PCR Negative (Negative); SARS-CoV-2 RNA PCR Negative
--- NOTE | 2022-03-25 18:28 | ECG_ITS ---
Measurements Intervals [place] Rate: 84 P: 67 ID: [id number] QRS: 40 QRSD: 103 T: 23 QT: 362 QTc: 429 Interpretive Statements SINUS RHYTHM WITH SINUS ARRHYTHMIA LEFT ATRIAL ENLARGEMENT BORDERLINE ST-T WAVE ABNORMALITY- DIFFUSE LEADS BASELINE ARTIFACT- V4-V6 BORDERLINE ECG COMPARED TO ECG 03/04/2022 16:24:37 SINUS ARRHYTHMIA NOW PRESENT Electronically Signed On 03-26-2022 7:36:17 [employer] by Unruly Panchal D.O.
[2022-03-25 18:35] LABS: Beta-Hydroxybutyrate/Acetoacetate 8.78 mmol/L (0.02-0.27)
[2022-03-25] MEDS: INSULIN HUMAN REGULAR (*BKC) 100 UNITS/ML IV PUSH (18:54)
[2022-03-25] MEDS: INSULIN HUMAN REGULAR (*BKC) 100 UNITS in SODIUM CHLORIDE 0.9% IV 99 ML 10.5 UNITS IV CONT (18:55)
[2022-03-25 18:59] LABS: Hemoglobin A1C 13.9 % (<5.7)
[2022-03-25 19:01] LABS: Glucose Point of Care > 500 mg/dl (65-105)
--- NOTE | 2022-03-25 19:01 | PM.IMHP ---
H&P: HPI History of Present Illness Date/Time: 03/25/22 19:01 Chief Complaint: Abnormal blood sugar Narrative: This is a 71-year-old female patient to has insulin-dependent diabetes. She has been noncompliant with her medications. She also has a history of DVT and PE. The patient stated she has not been taking her insulin as prescribed. I asked her why she does not have an insulin pump Coreg continue his diabetic monitoring device. The patient stated that she spoke to somebody about a continuous blood glucose monitoring device but never received it. The patient stated that she does not like needles and does not want to poke herself. She does report that she lives with her daughter and her daughter is supposed to help her with her medications. Her blood sugars have been in the 400s and she started vomiting which prompted her to come to the emergency room for concern of DKA . No fever chills. Arterial blood gases pH 7.2 when 1 CO2 was 25.0 patient sodium was initially 130 now 135. Potassium was 5.3 now 4.2.. BUN is 28 and creatinine 0.60. Initial blood glucose 522 seconds at 12:01 p.m. A1c 13.9. Bhop 8.7. 4+ ketones. Negative for influenza A/B and COVID. Patient being admitted to inpatient to ICU on the date of service 03/25/2022. Review of Systems Review of Systems: See HPI All systems reviewed & are unremarkable except as noted in HPI and below Constitutional: Constitutional: Reports as per HPI and Reports no additional constitutional complaints Eyes: Eyes: Reports as per HPI and Reports no additional eye complaints ENT: Reports system reviewed and no additional complaints, except as documented and Reports Normal hearing present Cardiovascular: Cardiovascular: Reports no additional cardiovascular complaints Respiratory: Respiratory: Reports no additional respiratory complaints and Reports no additional respiratory complaints Gastrointestinal: Gastrointestinal: Reports as per HPI and Reports no additional gastrointestinal complaints Musculoskeletal: Musculoskeletal: Reports no additional musculoskeletal complaints Integumentary/Breasts: Skin/Breast: Reports system reviewed and no additional complaints, except as docu and Reports as per HPI Neurologic: Reports system reviewed and no additional complaints, except as documented, Reports as per HPI and Reports Normal hearing present Psychiatric: Psychiatric: Reports no additional psychiatric complaints and Reports as per HPI Endocrine: Endocrine: Reports no additional endocrine complaints Hematologic/Lymphatic: Hematologic/Lymphatic: Reports no additional hematologic/lymphatic complaints Allergic/Immunologic: Allergic/Immunologic: Reports no additional allergic/immunologic complaints [facility] Past Medical History Medical History (Updated 03/25/22 @ 23:35 by Lesley Benton NP) Depression Diabetic peripheral neuropathy Fibromyalgia Hypothyroidism Memory change Ovarian cancer At the age of 33, status post hysterectomy. Patient states that half an ovary was left during surgery. She required no further treatment. Pneumonia due to COVID-19 virus (09/2020) Pulmonary emboli Restless leg syndrome Shingles Type 2 diabetes mellitus Hemoglobin A1c was > 14% August 2021 C-peptide 0.63. Surgical History Surgical History History of tonsillectomy (1970) History of total hysterectomy with bilateral salpingo-oophorectomy (BSO) (1983) History of tubal ligation (1983) Family History Family History Grandparent Family history of premature coronary heart disease, Onset Age: 64 Father Family history of respiratory disorder, Onset Age: 87 Family history of cardiovascular disease Patient's father is Family history of Alzheimer's disease Cerebrovascular accident Mother Family history of primary malignant neoplasm of liver, Onset Age: 64 Fami
[2022-03-25 19:14] LABS: Anion Gap 23 mmol/L (8-16); Blood Urea Nitrogen 26 mg/dL (7-17); Calcium 9.5 mg/dL (8.4-10.2); Carbon Dioxide 7 mmol/L (22-30); Chloride 100 mmol/L (98-107); Estimated Glomerular Filt Rate > 60; Glucose 552 mg/dL (65-110); Potassium 5.3 mmol/L (3.4-5.0); Sodium 130 mmol/L (137-145)
[2022-03-25 20:02] LABS: Glucose Point of Care 394 mg/dl (65-105)
[2022-03-25] MEDS: SODIUM CHLORIDE 0.9% IV 1,000 ML 150 ML IV CONT (21:47)
[2022-03-25] MEDS: KCL 20 MEQ/D5/0.45% SOD CHL 1,000 ML 150 ML IV CONT (22:15)
[2022-03-25 23:03] LABS: Anion Gap 15 mmol/L (8-16); Blood Urea Nitrogen 28 mg/dL (7-17); Calcium 9.8 mg/dL (8.4-10.2); Carbon Dioxide 13 mmol/L (22-30); Chloride 107 mmol/L (98-107); Estimated CRCL calculation 53 ml/min; Estimated Glomerular Filt Rate > 60; Glucose 201 mg/dL (65-110); Potassium 4.2 mmol/L (3.4-5.0); Sodium 135 mmol/L (137-145)
[2022-03-25 23:05] LABS: Glucose Point of Care 176 mg/dl (65-105)
[2022-03-25 23:05] LABS: Glucose Point of Care 211 mg/dl (65-105)
[2022-03-25 23:05] LABS: Glucose Point of Care 296 mg/dl (65-105)
[2022-03-26] VITALS (7 sets, daily range): BP systolic 102–129; BP diastolic 41–76; PULSE 72–116; RESP 17–20; TEMP 36.8–37.2; O2SAT 96–100
[2022-03-26] MEDS: PRAMIPEXOLE 1 MG TABLET 3 MG PO ×2 (00:02→21:41)
[2022-03-26] MEDS: APIXABAN 5 MG TABLET PO ×3 (00:02→21:30)
[2022-03-26 00:22] LABS: Glucose Point of Care 158 mg/dl (65-105)
[2022-03-26 03:30] LABS: Basophils Percent Auto 0.5 % (0.2-1.2); Eosinophils Absolute Auto 0.1 K/mm3 (0-0.3); Eosinophils Percent Auto 1.8 % (0-4.4); Hematocrit 32.4 % (37.0-47.0); Hemoglobin 10.4 g/dL (12.0-15.0); Immature Granulocyte Absolute 0.03 K/mm3 (0.00-0.031); Immature Granulocyte Percent A 0.4 % (0-0.5); Lymphocytes Absolute Auto 1.78 K/mm3 (0.9-3.2); Lymphocytes Percent Auto 22.6 % (18.3-44.2); Mean Corpuscular HGB Conc 32.1 g/dl (32-36); Mean Corpuscular Hemoglobin 30.8 pg (26-34); Mean Corpuscular Volume 95.9 fl (80-100); Mean Platelet Volume 8.6 fl (7.4-10.4); Monocytes Absolute Auto 0.7 K/mm3 (0.1-0.6); Monocytes Percent Auto 9.1 % (2.6-8.5); Neutrophils Absolute Auto 5.2 K/mm3 (1.3-6.7); Neutrophils Percent Auto 65.6 % (45.5-73.1); Platelet Count Result 463 k/mm3 (150-375); Red Blood Count 3.38 M/mm3 (4.2-5.4); White Blood Count 7.9 K/mm3 (4.5-10.0)
[2022-03-26 03:48] LABS: Anion Gap 5 mmol/L (8-16); Blood Urea Nitrogen 24 mg/dL (7-17); Calcium 9.2 mg/dL (8.4-10.2); Carbon Dioxide 21 mmol/L (22-30); Chloride 109 mmol/L (98-107); Estimated CRCL calculation 76 ml/min; Estimated Glomerular Filt Rate > 60; Glucose 109 mg/dL (65-110); Magnesium 1.9 mg/dL (1.6-2.3); Phosphorus 2.2 mg/dL (2.5-4.5); Potassium 3.8 mmol/L (3.4-5.0); Sodium 135 mmol/L (137-145)
[2022-03-26 03:49] LABS: Lactic Acid Reflex 0.9 mmol/L (0.7-2.0)
[2022-03-26 04:23] LABS: Glucose Point of Care 148 mg/dl (65-105)
[2022-03-26 04:23] LABS: Glucose Point of Care 132 mg/dl (65-105)
[2022-03-26 04:23] LABS: Glucose Point of Care 109 mg/dl (65-105)
[2022-03-26 04:23] LABS: Glucose Point of Care 107 mg/dl (65-105)
[2022-03-26 04:55] LABS: Thyroid Stimulating Hormone Reflex 0.655 uIU/mL (0.465-4.68)
[2022-03-26] MEDS: KCL 20 MEQ/D5/0.45% SOD CHL 1,000 ML 150 ML IV CONT (04:59)
[2022-03-26] MEDS: INSULIN GLARGINE (*BKC) 100 UNITS/ML 35 UNITS SUB-Q (05:01)
[2022-03-26 05:06] LABS: Glucose Point of Care 94 mg/dl (65-105)
[2022-03-26 06:10] LABS: Glucose Point of Care 100 mg/dl (65-105)
[2022-03-26 08:06] LABS: Glucose Point of Care 88 mg/dl (65-105)
--- NOTE | 2022-03-26 08:59 | WPDCNINT ---
Assessment and Plan Assessment and plan (1) DKA (diabetic ketoacidosis): Qualifiers: Diabetes mellitus complication detail: without coma Diabetes mellitus type: type 2 Qualified Code(s): E11.10 - Type 2 diabetes mellitus with ketoacidosis without coma Code(s): E11.10 - Type 2 diabetes mellitus with ketoacidosis without coma Status: Acute Assessment and Plan: Patient was treated with IVF bolus and infusion Patient was started on Insulin infusion and Q1H glucose monitoring Serial labs were done Her anion gap has closed and I will transition her to subcutaneous insulin Diabetic diet started No objective evidence of infection (2) Right leg DVT: Code(s): I82.401 - Acute embolism and thrombosis of unspecified deep veins of right lower extremity Status: Acute Assessment and Plan: She had ultrasound done on 03/15 which showed Deep vein thrombosis involving right common femoral vein and femoral vein with interval improvement in distribution. Continue Eliquis. Not sure how regularly patient is taking at home as she is overall noncompliant with the medications No swelling redness or abnormality seen on examination of right leg I again reiterated to the patient that her compliance with her blood thinner is very important and could be life-threatening if she does not take him medications regularly. Patient is clearly not a candidate for Coumadin or subcutaneous blood thinner due to her fear of needles and overall general noncompliance (3) Depression: Code(s): F32.A - Depression, unspecified Status: Acute Assessment and Plan: Patient used to be on Cymbalta as per records but patient states that was discontinued by primary care physician. She has not been taking any for months now. (4) Current nonadherence to medical treatment: Code(s): Z91.199 - Patient's noncompliance with other medical treatment and regimen due to unspecified reason Status: Acute Assessment and Plan: Patient states that her daughter does not help her and taking her medications. I spoke to her daughter few months ago when she was admitted with DKA and she states the patient does not want her to be interfering in her health care and medication. I have discussed option of going to assisted living place for the patient and patient is adamant that she does not want to go that route. (5) Pulmonary emboli: Code(s): I26.99 - Other pulmonary embolism without acute cor pulmonale Status: Acute Assessment and Plan: She was diagnosed with small segmental branch PE on 03/16 She is on anticoagulation although I am not sure how compliant Plan DVT prophylaxis -Eliquis Nutrition -diabetic Code Status - Full Code Incentive spirometry up in chair Scale Clerk Consult Note Consult date: 03/26/22 Reason for consult: DKA HPI: Karly Leslie is a 71 year old female with past medical history of poorly-controlled type 2 diabetes which was diagnosed in March of 2019 and noncompliance with insulin with multiple frequent admissions to ER with DKA presented to ED last night with chief complaint of elevated blood sugar.? Patient was discharged few days ago on 03/17 after treatment for DKA.? Patient has significant compliance issues and comes frequently for DKA as she does not take her insulin regularly.? Patient presented yesterday in the ED with chief complaint of elevated blood sugars and admitted that she has not been taking her insulin regularly she states she does not like needle and does not want to poke herself. In the past I have spoken to her daughter and she has told me that patient does not want her to be interfering in her medication but the patient states that her daughter does not help her in taking her insulin. In ED patient was essentially asymptomatic and did not had any specific complaint except mild nausea. She was diagnosed with DKA and was started on IV insulin fusion along with IV fluids
[2022-03-26] MEDS: POTASSIUM/PHOSPHORUS/SODIUM 1.5 GM PACKET 1 PACKET PO (10:06)
--- NOTE | 2022-03-26 11:08 | PC.NURSE ---
This patient, Karly Leslie, was transferred to [facility] on 03/26/22 at 1102. Personal belongings sent with patient. Report given to Bertha CHRISTIANSON. Appropriate documentation sent with patient. Patient to inform family of room change.
[2022-03-26 11:58] LABS: Glucose Point of Care 286 mg/dl (65-105)
[2022-03-26] MEDS: INSULIN ASPART (*BKC) 100 UNITS/ML SUB-Q ×4 (11:58→17:18)
[2022-03-26 16:50] LABS: Glucose Point of Care 285 mg/dl (65-105)
[2022-03-26 19:47] LABS: Glucose Point of Care 323 mg/dl (65-105)
[2022-03-27] VITALS: BP 111/69; PULSE 105; RESP 18; TEMP 36.1; O2SAT 99
[2022-03-27] MEDS: ACETAMINOPHEN 500 MG TABLET 1000 MG PO (03:54)
[2022-03-27 07:59] LABS: Glucose Point of Care 257 mg/dl (65-105)
[2022-03-27] MEDS: APIXABAN 5 MG TABLET PO ×2 (08:33→21:02)
[2022-03-27] MEDS: INSULIN ASPART (*BKC) 100 UNITS/ML SUB-Q ×4 (08:33→18:01)
[2022-03-27] MEDS: INSULIN GLARGINE (*BKC) 100 UNITS/ML 35 UNITS SUB-Q (08:33)
[2022-03-27 08:50] VITALS: BP 119/72; PULSE 65; RESP 16; TEMP 36.5; O2SAT 97
[2022-03-27 09:16] LABS: Basophils Percent Auto 0.6 % (0.2-1.2); Eosinophils Absolute Auto 0.2 K/mm3 (0-0.3); Eosinophils Percent Auto 3.2 % (0-4.4); Hemoglobin 10.5 g/dL (12.0-15.0); Immature Granulocyte Absolute 0.02 K/mm3 (0.00-0.031); Immature Granulocyte Percent A 0.4 % (0-0.5); Lymphocytes Percent Auto 36.5 % (18.3-44.2); Mean Corpuscular HGB Conc 30.9 g/dl (32-36); Mean Corpuscular Hemoglobin 30.6 pg (26-34); Mean Corpuscular Volume 99.1 fl (80-100); Mean Platelet Volume 8.9 fl (7.4-10.4); Monocytes Absolute Auto 0.5 K/mm3 (0.1-0.6); Monocytes Percent Auto 9.7 % (2.6-8.5); Neutrophils Absolute Auto 2.4 K/mm3 (1.3-6.7); Neutrophils Percent Auto 49.6 % (45.5-73.1); Platelet Count Result 392 k/mm3 (150-375); Red Blood Count 3.43 M/mm3 (4.2-5.4); Red Cell Distribution Width 14.3 % (11.5-14.5); White Blood Count 4.9 K/mm3 (4.5-10.0)
[2022-03-27 09:37] LABS: Alanine Aminotransferase 19 U/L (6-35); Albumin Level 3.3 g/dL (3.5-5.1); Alkaline Phosphatase 123 U/L (38-126); Anion Gap 3 mmol/L (8-16); Aspartate Amino Transferase 22 U/L (14-36); Bilirubin,Total 0.4 mg/dL (0.2-1.3); Blood Urea Nitrogen 12 mg/dL (7-17); Calcium 9.2 mg/dL (8.4-10.2); Carbon Dioxide 23 mmol/L (22-30); Chloride 102 mmol/L (98-107); Estimated CRCL calculation 76 ml/min; Estimated Glomerular Filt Rate > 60; Glucose 242 mg/dL (65-110); Magnesium 2.1 mg/dL (1.6-2.3); Potassium 3.5 mmol/L (3.4-5.0); Sodium 128 mmol/L (137-145)
[2022-03-27 12:13] LABS: Glucose Point of Care 186 mg/dl (65-105)
[2022-03-27] MEDS: ACETAMINOPHEN 325 MG TABLET 650 MG PO ×2 (13:58→21:02)
[2022-03-27 14:30] VITALS: BP 104/63; PULSE 68; RESP 14; TEMP 37.5; O2SAT 99
--- NOTE | 2022-03-27 14:31 | PM.IMPN ---
Progress Note: A&P Assessment and Plan (1) DKA (diabetic ketoacidosis): Qualifiers: Diabetes mellitus complication detail: without coma Diabetes mellitus type: type 2 Qualified Code(s): E11.10 - Type 2 diabetes mellitus with ketoacidosis without coma Code(s): E11.10 - Type 2 diabetes mellitus with ketoacidosis without coma Status: Acute Assessment and Plan: Patient was treated with IVF bolus and infusion Patient was started on Insulin infusion and Q1H glucose monitoring Serial labs were done Her anion gap has closed and Has been transitioned to subcutaneous insulin Diabetic diet started No objective evidence of infection (2) Right leg DVT: Code(s): I82.401 - Acute embolism and thrombosis of unspecified deep veins of right lower extremity Status: Acute Assessment and Plan: She had ultrasound done on 03/15 which showed Deep vein thrombosis involving right common femoral vein and femoral vein with interval improvement in distribution. Continue Eliquis. Not sure how regularly patient is taking at home as she is overall noncompliant with the medications No swelling redness or abnormality seen on examination of right leg I again reiterated to the patient that her compliance with her blood thinner is very important and could be life-threatening if she does not take him medications regularly. Patient is clearly not a candidate for Coumadin or subcutaneous blood thinner due to her fear of needles and overall general noncompliance (3) Depression: Code(s): F32.A - Depression, unspecified Status: Acute Assessment and Plan: Patient used to be on Cymbalta as per records but patient states that was discontinued by primary care physician. She has not been taking any for months now. (4) Current nonadherence to medical treatment: Code(s): Z91.199 - Patient's noncompliance with other medical treatment and regimen due to unspecified reason Status: Acute Assessment and Plan: Patient states that her daughter does not help her and taking her medications. I spoke to her daughter few months ago when she was admitted with DKA and she states the patient does not want her to be interfering in her health care and medication. I have discussed option of going to assisted living place for the patient and patient is adamant that she does not want to go that route. (5) Pulmonary emboli: Code(s): I26.99 - Other pulmonary embolism without acute cor pulmonale Status: Acute Assessment and Plan: She was diagnosed with small segmental branch PE on 03/16 She is on anticoagulation although I am not sure how compliant Plan DVT prophylaxis -Eliuniqueis Nutrition -diabetic Code Status - Full Code Incentive spirometry up in chair Subjective Date/time seen: 03/27/22 14:31 Interval history: complains of pain in her legs. Denies any other complaints. Blood sugar trend reviewed. Back again with DKA. She states she forgot to use her insulin. Review of Systems Review of Systems: All systems reviewed & are unremarkable except as noted in HPI and below (HPI) Exam Narrative: General: Pt is alert awake and in NAD Lungs/Chest: Trachea central Clear BS B/L, No crackles or wheezing. Cardiac: RRR. Normal S1 S2. No murmurs Circulation: Pedal pulses are intact and symmetrical. Abdomen: Normal bowel sounds.. Soft. NT. ND. Extremities: No clubbing, cyanosis or edema. Warm right lower extremity examined no redness swelling seen. Patient exhibits illness on right calf but no redness swelling or abnormality seen on exam : Grace in place Neurologic: Follows commands. Moves all 4 extremities PERRL Skin: No Rash Objective Data Vital Signs Vital Signs: Vital Signs - 24 hr 03/26/22 20:00 03/27/22 00:00 03/27/22 08:50 Temperature 97 F L 97.7 F Pulse Rate 105 H 65 Respiratory Rate 18 16 Blood Pressure 111/69 119/72 Pulse Oximetry 99 97 Oxygen Delivery Room Air
[2022-03-27 17:00] LABS: Glucose Point of Care 116 mg/dl (65-105)
[2022-03-27 20:51] LABS: Glucose Point of Care 206 mg/dl (65-105)
[2022-03-27] MEDS: PRAMIPEXOLE 1 MG TABLET 3 MG PO (21:02)
[2022-03-27 22:00] VITALS: BP 110/66; PULSE 86; RESP 16; TEMP 36.6; O2SAT 94
[2022-03-28] MEDS: ACETAMINOPHEN 325 MG TABLET 650 MG PO ×2 (05:32→20:58)
[2022-03-28 05:34] VITALS: BP 122/70; PULSE 58; RESP 16; TEMP 36.4; O2SAT 100
[2022-03-28 06:44] LABS: Basophils Percent Auto 0.5 % (0.2-1.2); Eosinophils Absolute Auto 0.2 K/mm3 (0-0.3); Eosinophils Percent Auto 3.5 % (0-4.4); Hematocrit 33.8 % (37.0-47.0); Hemoglobin 10.8 g/dL (12.0-15.0); Immature Granulocyte Absolute 0.02 K/mm3 (0.00-0.031); Immature Granulocyte Percent A 0.5 % (0-0.5); Lymphocytes Absolute Auto 1.92 K/mm3 (0.9-3.2); Lymphocytes Percent Auto 44.9 % (18.3-44.2); Mean Corpuscular Hemoglobin 30.7 pg (26-34); Mean Platelet Volume 8.8 fl (7.4-10.4); Monocytes Absolute Auto 0.4 K/mm3 (0.1-0.6); Monocytes Percent Auto 9.6 % (2.6-8.5); Neutrophils Absolute Auto 1.8 K/mm3 (1.3-6.7); Platelet Count Result 366 k/mm3 (150-375); Red Blood Count 3.52 M/mm3 (4.2-5.4); Red Cell Distribution Width 14.1 % (11.5-14.5); White Blood Count 4.3 K/mm3 (4.5-10.0)
[2022-03-28 06:54] LABS: Alanine Aminotransferase 19 U/L (6-35); Albumin Level 3.4 g/dL (3.5-5.1); Alkaline Phosphatase 117 U/L (38-126); Anion Gap 5 mmol/L (8-16); Aspartate Amino Transferase 24 U/L (14-36); Bilirubin,Total 0.4 mg/dL (0.2-1.3); Blood Urea Nitrogen 14 mg/dL (7-17); Calcium 9.3 mg/dL (8.4-10.2); Carbon Dioxide 25 mmol/L (22-30); Chloride 105 mmol/L (98-107); Estimated CRCL calculation 76 ml/min; Estimated Glomerular Filt Rate > 60; Glucose 112 mg/dL (65-110); Magnesium 1.9 mg/dL (1.6-2.3); Potassium 3.5 mmol/L (3.4-5.0); Sodium 135 mmol/L (137-145)
[2022-03-28 07:46] LABS: Glucose Point of Care 90 mg/dl (65-105)
[2022-03-28] MEDS: APIXABAN 5 MG TABLET PO ×2 (09:14→20:59)
[2022-03-28 09:31] LABS: Glucose Point of Care 204 mg/dl (65-105)
[2022-03-28] MEDS: INSULIN ASPART (*BKC) 100 UNITS/ML SUB-Q ×3 (09:31→17:26)
[2022-03-28] MEDS: INSULIN GLARGINE (*BKC) 100 UNITS/ML 35 UNITS SUB-Q (09:31)
[2022-03-28 11:25] LABS: Glucose Point of Care 139 mg/dl (65-105)
[2022-03-28 12:25] VITALS: BMI 22.8
[2022-03-28 14:00] VITALS: BP 114/69; PULSE 68; RESP 18; TEMP 36.3; O2SAT 100
--- NOTE | 2022-03-28 16:25 | PM.IMPN ---
Progress Note: A&P Assessment and Plan (1) DKA (diabetic ketoacidosis): Qualifiers: Diabetes mellitus complication detail: without coma Diabetes mellitus type: type 2 Qualified Code(s): E11.10 - Type 2 diabetes mellitus with ketoacidosis without coma Code(s): E11.10 - Type 2 diabetes mellitus with ketoacidosis without coma Status: Acute Assessment and Plan: Patient was treated with IVF bolus and infusion Patient was started on Insulin infusion and Q1H glucose monitoring Serial labs were done Her anion gap has closed and Has been transitioned to subcutaneous insulin Diabetic diet started No objective evidence of infection (2) Right leg DVT: Code(s): I82.401 - Acute embolism and thrombosis of unspecified deep veins of right lower extremity Status: Acute Assessment and Plan: She had ultrasound done on 03/15 which showed Deep vein thrombosis involving right common femoral vein and femoral vein with interval improvement in distribution. Continue Eliquis. Not sure how regularly patient is taking at home as she is overall noncompliant with the medications No swelling redness or abnormality seen on examination of right leg I again reiterated to the patient that her compliance with her blood thinner is very important and could be life-threatening if she does not take him medications regularly. Patient is clearly not a candidate for Coumadin or subcutaneous blood thinner due to her fear of needles and overall general noncompliance (3) Depression: Code(s): F32.A - Depression, unspecified Status: Acute Assessment and Plan: Patient used to be on Cymbalta as per records but patient states that was discontinued by primary care physician. She has not been taking any for months now. (4) Current nonadherence to medical treatment: Code(s): Z91.199 - Patient's noncompliance with other medical treatment and regimen due to unspecified reason Status: Acute Assessment and Plan: Patient states that her daughter does not help her and taking her medications. I spoke to her daughter few months ago when she was admitted with DKA and she states the patient does not want her to be interfering in her health care and medication. I have discussed option of going to assisted living place for the patient and patient is adamant that she does not want to go that route. (5) Pulmonary emboli: Code(s): I26.99 - Other pulmonary embolism without acute cor pulmonale Status: Acute Assessment and Plan: She was diagnosed with small segmental branch PE on 03/16 She is on anticoagulation although I am not sure how compliant Plan DVT prophylaxis -Eliquis Nutrition -diabetic Code Status - Full Code Incentive spirometry up in chair Subjective Date/time seen: 03/28/22 16:25 Interval history: Part from her pain in her legs she has no other complaints. Blood sugar trend was reviewed. She states that she forgot to take her insulin. She denies any other complaint. Discussed about her insulin compliance. Also discussed that this will lead to multiple recurrent hospitalization Review of Systems Review of Systems: All systems reviewed & are unremarkable except as noted in HPI and below (HPI) Exam Narrative: General: Pt is alert awake and in NAD Lungs/Chest: Trachea central Clear BS B/L, No crackles or wheezing. Cardiac: RRR. Normal S1 S2. No murmurs Circulation: Pedal pulses are intact and symmetrical. Abdomen: Normal bowel sounds.. Soft. NT. ND. Extremities: No clubbing, cyanosis or edema. Warm right lower extremity examined no redness swelling seen. Patient exhibits illness on right calf but no redness swelling or abnormality seen on exam : Grace in place Neurologic: Follows commands. Moves all 4 extremities PERRL Skin: No Rash Objective Data Vital Signs Vital Signs: Vital Signs - 24 hr 03/27/22 22:00 03/27/22 20:00 03/28/22 05:34 Temperature 97.9 F
[2022-03-28 16:26] LABS: Glucose Point of Care 135 mg/dl (65-105)
[2022-03-28 20:34] LABS: Glucose Point of Care 303 mg/dl (65-105)
[2022-03-28] MEDS: PRAMIPEXOLE 1 MG TABLET 3 MG PO (20:59)
[2022-03-28 22:28] VITALS: BP 107/68; PULSE 72; RESP 16; TEMP 36.6; O2SAT 99
[2022-03-29 05:18] VITALS: BP 111/62; PULSE 61; RESP 16; TEMP 36.5; O2SAT 99
[2022-03-29] MEDS: ACETAMINOPHEN 325 MG TABLET 650 MG PO (05:44)
[2022-03-29 06:16] LABS: Basophils Percent Auto 0.5 % (0.2-1.2); Eosinophils Absolute Auto 0.2 K/mm3 (0-0.3); Eosinophils Percent Auto 2.6 % (0-4.4); Hematocrit 38.5 % (37.0-47.0); Hemoglobin 12.2 g/dL (12.0-15.0); Immature Granulocyte Absolute 0.02 K/mm3 (0.00-0.031); Immature Granulocyte Percent A 0.3 % (0-0.5); Lymphocytes Absolute Auto 3.12 K/mm3 (0.9-3.2); Lymphocytes Percent Auto 53.4 % (18.3-44.2); Mean Corpuscular HGB Conc 31.7 g/dl (32-36); Mean Corpuscular Hemoglobin 30.5 pg (26-34); Mean Corpuscular Volume 96.3 fl (80-100); Mean Platelet Volume 8.8 fl (7.4-10.4); Monocytes Absolute Auto 0.5 K/mm3 (0.1-0.6); Monocytes Percent Auto 8.6 % (2.6-8.5); Neutrophils Percent Auto 34.6 % (45.5-73.1); Platelet Count Result 417 k/mm3 (150-375); White Blood Count 5.8 K/mm3 (4.5-10.0)
[2022-03-29 06:34] LABS: Alanine Aminotransferase 24 U/L (6-35); Albumin Level 3.6 g/dL (3.5-5.1); Alkaline Phosphatase 120 U/L (38-126); Anion Gap 3 mmol/L (8-16); Aspartate Amino Transferase 35 U/L (14-36); Bilirubin,Total 0.3 mg/dL (0.2-1.3); Blood Urea Nitrogen 12 mg/dL (7-17); Calcium 9.9 mg/dL (8.4-10.2); Carbon Dioxide 30 mmol/L (22-30); Chloride 105 mmol/L (98-107); Estimated CRCL calculation 76 ml/min; Estimated Glomerular Filt Rate > 60; Glucose 77 mg/dL (65-110); Magnesium 2.2 mg/dL (1.6-2.3); Potassium 3.7 mmol/L (3.4-5.0); Sodium 138 mmol/L (137-145)
[2022-03-29 08:06] LABS: Glucose Point of Care 77 mg/dl (65-105)
[2022-03-29] MEDS: APIXABAN 5 MG TABLET PO (08:53)
[2022-03-29] MEDS: INSULIN GLARGINE (*BKC) 100 UNITS/ML 20 UNITS SUB-Q (08:54)
[2022-03-29 11:26] LABS: Glucose Point of Care 247 mg/dl (65-105)
[2022-03-29] MEDS: INSULIN ASPART (*BKC) 100 UNITS/ML SUB-Q ×2 (12:37)
--- NOTE | 2022-03-29 13:14 | PM.DS ---
DS: Admitting Diagnosis Discharge Date 03/29/2022 Admitting Diagnosis DKA DS: Discharge Diagnosis Discharge Diagnosis (1) DKA (diabetic ketoacidosis): Qualifiers: Diabetes mellitus complication detail: without coma Diabetes mellitus type: type 2 Qualified Code(s): E11.10 - Type 2 diabetes mellitus with ketoacidosis without coma Code(s): E11.10 - Type 2 diabetes mellitus with ketoacidosis without coma Status: Acute (2) Right leg DVT: Code(s): I82.401 - Acute embolism and thrombosis of unspecified deep veins of right lower extremity Status: Acute (3) Depression: Code(s): F32.A - Depression, unspecified Status: Acute (4) Current nonadherence to medical treatment: Code(s): Z91.199 - Patient's noncompliance with other medical treatment and regimen due to unspecified reason Status: Acute (5) Pulmonary emboli: Code(s): I26.99 - Other pulmonary embolism without acute cor pulmonale Status: Acute DS: Summary Hospital Course Hospital Course: # acute DKA (diabetic ketoacidosis): recurrent with noncompliance with medications Patient was treated with IVF bolus and infusion Patient was started on Insulin infusion and Q1H glucose monitoring Serial labs were done Her anion gap has closed and? Has been transitioned to ? subcutaneous insulin Diabetic diet started No objective evidence of infection Adjust his insulin per blood sugar reading. While in the hospital getting Lantus regularly her DKA continue to remain in remission. Needs to take insulin regularly which was discussed multiple times during the hospital stay. # recently diagnosed right leg DVT and PE: She had ultrasound done on 03/15 which showed?Deep vein thrombosis involving right common femoral vein and femoral vein with interval improvement in distribution. Continue Eliquis. see also was diagnosed with small segmental branch PE on 03/16/2022.? Not sure how regularly patient is taking at home as she is overall noncompliant with the medications No swelling redness or abnormality seen on examination of right leg I again reiterated to the patient that her compliance with her blood thinner is very important and could be life-threatening if she does not take him medications regularly.? Patient is clearly not a candidate for Coumadin or subcutaneous blood thinner due to her fear of needles and overall general noncompliance # depression: Patient used to be on Cymbalta as per records but patient states that was discontinued by primary care physician.? She has not been taking any for months now. Follow-up with PCP regarding this # medical noncompliance: Patient states that her daughter does not help her and taking her medications.? I spoke to her daughter few months ago when she was admitted with DKA and she states the patient does not want her to be interfering in her health care and medication. I have discussed option of going to assisted living place for the patient and patient is adamant that she does not want to go that route. Adult protective services has also been involved regard to this. She might opt to go for health assistant living facility where she might get help with the medications. For ever arranged for home health with [facility] to assist with her medication and also getting some help from her daughter. She understands risk not using the insulin regular basis. #DVT prophylaxis -Eliquis #Nutrition -diabetic #Code Status - Full Code Time Spent with Patient Time attestation: Total time spent providing and/or coordinating discharge services: 40 minutes Exam Narrative: General: Pt is alert awake and in NAD Lungs/Chest: Trachea central Clear BS B/L, No crackles or wheezing. Cardiac: RRR. Normal S1 S2. No murmurs Circulation: Pedal pulses are intact and symmetrical. Abdomen: Normal bowel sounds.. Soft. NT. ND. Extremities: No clubbing, cyanosis or edema. Warm right lower extremity examined no redness s
== END 2022-03-29 13:45 | disposition home health service (06) | DRG 637 ==
LOC: ANHED 18:57 → ANHICU 20:16 → ANH3MEDSUR 03-26 11:07
PROVIDERS: Nurse Practitioner; Physician Assistant; Admitting Provider Student in an Organized Health Care Education/Training Program; Emergency Provider Emergency Medicine; PCP Family Medicine; Visit Provider Internal Medicine
DX: E11.10 Type 2 diabetes mellitus with ketoacidosis without coma (principal); I26.99 Other pulmonary embolism without acute cor pulmonale; I82.411 Acute embolism and thrombosis of right femoral vein; F32.A Depression, unspecified; Z20.822 Contact with and (suspected) exposure to COVID-19; E11.42 Type 2 diabetes mellitus with diabetic polyneuropathy; G25.81 Restless legs syndrome; E03.9 Hypothyroidism, unspecified; M79.7 Fibromyalgia; Z91.199 Patient's noncompliance with other medical treatment and regimen due to unspecified reason; Z86.16 Personal history of COVID-19; Z85.43 Personal history of malignant neoplasm of ovary; Z90.710 Acquired absence of both cervix and uterus; Z90.722 Acquired absence of ovaries, bilateral
CPT/HCPCS: 36415; 36600; 80048; 80053; 81001; 82010; 82375; 82805; 82948; 83036; 83050; 83605; 83735; 84100; 84443; 85025; 85610; 85730; 87636; 93005; 96360; 97161; 97165; 99285; A9270; J0131; J1815; J3480; J7030

== ENCOUNTER 2022-04-07 00:05 | Emergency (ER) | payer MEDICARE, OTHER, SELFPAY ==
[2022-04-07] VITALS (10 sets, daily range): BP systolic 89–126; BP diastolic 66–87; PULSE 60–119; RESP 10–20; TEMP 36.7–36.8; O2SAT 97–100
--- NOTE | ~2022-04-07 | CT_ITS ---
Non-contrast Head CT History: Right-sided weakness COMPARISON: 02/18/2022 Technique: Axial non-contrast imaging of the brain was performed. Dose reduction technique was used on this scan by utilizing automated exposure control and iterative reconstruction technique. The dose -length product (DLP) was 529.67 mGy-cm. Findings: There is no evidence of intracranial hemorrhage, mass lesion, or acute infarct. Brain par enchyma appears normal. The ventricles and subarachnoid spaces are normal in size. The calvarium ap pears normal. The visualized paranasal sinuses and mastoid air cells are clear. Impression: No significant abnormality seen. Reviewed, dictated and finalized at location . RITY ATTENDANT Impression: No significant abnormality seen.
--- NOTE | 2022-04-07 00:21 | ECG_ITS ---
Measurements Intervals Lewis Rate: 64 P: 51 DC: 214 QRS: 21 QRSD: 80 T: 33 QT: 381 QTc: 395 Interpretive Statements SINUS RHYTHM WITH PREMATURE ATRIAL CONTRACTION AND FIRST DEGREE AV BLOCK BASELINE ARTIFACT BORDERLINE ECG COMPARED TO ECG 03/25/2022 19:19:35 FIRST DEGREE AV BLOCK NOW PRESENT Electronically Signed On 04-07-2022 14:43:10 [employer] HELPER by Alberto Louise M.D.
--- NOTE | 2022-04-07 00:21 | ED.NEUROSD ---
HPI - Neuro Symptoms/Deficit General Chief Complaint: Extremity Problem,Nontraumatic Stated Complaint: Arm Numbness Source: patient Mode of arrival: ambulatory Limitations: no limitations History of Present Illness HPI Narrative: 71-year-old female, smoker prior alcohol use, diabetes mellitus with recent admission for diabetic ketoacidosis from 03/25/2022 to 03/29/2022 at [facility], depression ovarian cancer status post hysterectomy at age 33, RLS, newly diagnosed right lower extremity DVT and subsegmental PE on Eliquis drove to the ER with an 8 hour history of -- numbness of the right arm and leg. -- Involuntary movement of the right upper extremity. no headache. -- Noted to have blood sugars of greater than 500. -- Patient is emotional and crying stating that she is unable to control the movement of her right upper extremity. When I asked her to put out her arms she said that they moved like she was playing a violin and hands did move. Her speech is clear. Onset (ago): hour(s) ( Symptoms started 8 hours ago.) Location: left arm and right leg Severity: moderate Quality: weak and numb Relieving factors: none Exacerbating factors: none Context: sudden onset On Anticoagulants: Yes Associated symptoms: denies other symptoms Treatments Prior to Arrival: none Related Data Home Medications Medication Instructions Recorded Confirmed hydrocodone 5 mg-acetaminophen 325 1 tablet PO Q8H PRN Pain (Scale 03/25/22 04/07/22 mg tablet Score 4-6) insulin aspart U-100 100 unit/mL 3 unit subcut TIDWM 03/25/22 04/07/22 (3 mL) subcutaneous pen (Novolog FlexPen U-100 Insulin aspart) Allergies Allergy/AdvReac Type Severity Reaction Status Date / Time banana Allergy Severe SEVERE Verified 04/06/22 08:05 HIVES aspirin AdvReac Intermediate Nausea and Verified 04/06/22 08:05 Vomiting fluoxetine [From Prozac] AdvReac Hallucinati Verified 04/06/22 08:05 ng Review of Systems Review of Systems: All systems reviewed & are unremarkable except as noted in HPI and below Constitutional: Constitutional: Reports as per HPI and Reports no additional constitutional complaints Eyes: Eyes: Reports as per HPI and Reports no additional eye complaints ENT: Reports system reviewed and no additional complaints, except as documented and Reports as per HPI Cardiovascular: Cardiovascular: Reports as per HPI and Reports no additional cardiovascular complaints Respiratory: Respiratory: Reports as per HPI and Reports no additional respiratory complaints Gastrointestinal: Gastrointestinal: Reports as per HPI and Reports no additional gastrointestinal complaints Genitourinary: Genitourinary: Reports no additional female genitourinary complaints and Reports as per HPI Musculoskeletal: Musculoskeletal: Reports no additional musculoskeletal complaints and Reports as per HPI Integumentary/Breasts: Skin/Breast: Reports system reviewed and no additional complaints, except as docu and Reports as per HPI Neurologic: Reports system reviewed and no additional complaints, except as documented Comments: Weakness and numbness of the right upper extremity and right lower extremity. The patient is moving her right upper extremity. Psychiatric: Psychiatric: Reports no additional psychiatric complaints and Reports as per HPI Endocrine: Endocrine: Reports no additional endocrine complaints Hematologic/Lymphatic: Hematologic/Lymphatic: Reports no additional hematologic/lymphatic complaints Allergic/Immunologic: Allergic/Immunologic: Reports no additional allergic/immunologic complaints and Reports as per HPI [facility] Past Medical History Medical History Depression Diabetic peripheral neuropathy Fibromyalgia Hypothyroidism Memory change Ovarian cancer At the age of 33, status post hysterectomy. Patient states that half an ovary was left during surgery. She required no furthe
[2022-04-07 00:23] LABS: Glucose Point of Care > 450 mg/dl (65-105)
[2022-04-07] MEDS: SODIUM CHLORIDE 0.9% IV 1,000 ML 999 ML IV CONT ×3 (00:27→01:45)
[2022-04-07] MEDS: MIDAZOLAM HCL (*CRX) 2 MG/2 ML VIAL 1 MG IV PUSH (00:27)
[2022-04-07 00:38] LABS: Basophils Absolute Auto 0.02 K/mm3 (0.00-0.10); Basophils Percent Auto 0.4 % (0.0-1.0); Eosinophils Absolute Auto 0.01 K/mm3 (0.02-0.50); Eosinophils Percent Auto 0.2 % (1.0-6.0); Hematocrit 38.6 % (35.0-42.0); Hemoglobin 11.5 g/dL (11.7-13.8); Immature Granulocyte Absolute 0.05 K/mm3 (0.00-0.00); Immature Granulocyte Percent A 0.9 % (0.0-0.0); Lymphocytes Absolute Auto 1.18 K/mm3 (1.10-4.50); Lymphocytes Percent Auto 21.1 % (18.0-42.0); Mean Corpuscular HGB Conc 29.8 g/dL (32.0-36.0); Mean Corpuscular Volume 100.8 fL (78.0-102.0); Mean Platelet Volume 10.8 fl (9.2-11.8); Monocytes Absolute Auto 0.57 K/mm3 (0.10-0.90); Monocytes Percent Auto 10.2 % (2.0-11.0); Neutrophils Absolute Auto 3.8 K/mm3 (1.7-7.2); Neutrophils Percent Auto 67.2 % (50.0-70.0); Platelet Count Result 315 K/mm3 (150-420); Red Blood Count 3.83 M/mm3 (4.20-5.40); Red Cell Distribution Width 13.9 % (11.6-14.4); White Blood Count 5.6 K/mm3 (4.8-10.8)
[2022-04-07 00:45] LABS: Alanine Aminotransferase 47 U/L (14-59); Albumin Level 3.6 g/dL (3.4-5.0); Alkaline Phosphatase 161 U/L (46-116); Bilirubin,Total 0.6 mg/dL (0.00-1.00); Blood Urea Nitrogen 52 mg/dL (7-18); Calcium 9.5 mg/dL (8.5-10.1); Carbon Dioxide 21 mmol/L (21-32); Chloride 80 mmol/L (98-108); Estimated CRCL calculation 32 ml/min; Estimated Glomerular Filt Rate 52; Lipase 65 U/L (16-77); Total Protein 7.6 g/dL (6.4-8.2); Troponin I 19.7 ng/L (0.00-60.4)
[2022-04-07 00:48] LABS: Lactic Acid Reflex 1.3 mmol/L (0.4-2.0)
[2022-04-07] MEDS: INSULIN HUMAN REGULAR (*BKC) 100 UNITS/ML 10 UNITS IV PUSH (00:49)
[2022-04-07 00:54] LABS: Prothrombin Time 10.6 Seconds (9.50-12.10)
[2022-04-07 01:16] LABS: Glucose > 800 mg/dL (70-99)
[2022-04-07 01:24] LABS: Sodium 117 mmol/L (136-145)
[2022-04-07 01:25] LABS: Anion Gap 16 mmol/L (8-16); Osmolality Calculated 297 mOsm/kg (285-295); Potassium 6.5 mmol/L (3.5-5.1)
[2022-04-07 01:26] LABS: Aspartate Amino Transferase 56 U/L (15-37)
[2022-04-07 01:36] LABS: Add Urine Microscopic? YES; Appearance Urine Clear (Clear); Bilirubin Urine Negative (Negative); Blood Urine Negative (Negative); Color Urine Light Yellow (Yellow); Glucose Urine UA 3+ (Negative); Ketones Urine 1+ (Negative); Leukocyte Esterase Ur Negative LEU/UL (Negative); Nitrate Urine Negative (Negative); Protein Urine Negative (Negative); Specific Grav Ur <= 1.005 (1.010-1.020); Urobilinogen Urine 0.2 mg/dL (0.2-1.0); pH Urine 5.5 (5.0-8.0)
[2022-04-07 01:39] LABS: Bacteria Urine Trace /hpf; RBC Urine 0-2 /hpf (0-2); Squamous Epithelial Cell Urine Rare /hpf (Few); WBC Urine 0-3 /hpf (0-3)
[2022-04-07] MEDS: INSULIN HUMAN REGULAR (*BKC) 100 UNITS/ML IV PUSH ×3 (01:46→03:10)
[2022-04-07 01:48] LABS: Glucose Point of Care > 450 mg/dl (65-105)
[2022-04-07 02:04] LABS: HCO3 ABG 15.9 mmol/L (23-29); Oxygen Content ABG 16.1 %vol (16.0-22.0); Oxygen Saturation ABG 96.8 % (95-97); Oxyhemoglobin 94.1 % (94-100); PCO2 ABG 22.4 mmHg (35-45); PO2 ABG 92.9 mmHg (75-85); Total Hemoglobin 12.1 g/dL (12.0-18.0); pH ABG 7.47 (7.35-7.45)
[2022-04-07 02:06] LABS: Device ROOM AIR; Modified Allen's Test Pass; Site Drawn RIGHT RADIAL
[2022-04-07 02:20] LABS: Anion Gap 12 mmol/L (8-16); Blood Urea Nitrogen 47 mg/dL (7-18); Carbon Dioxide 18 mmol/L (21-32); Chloride 91 mmol/L (98-108); Estimated CRCL calculation 34 ml/min; Estimated Glomerular Filt Rate 55; Sodium 121 mmol/L (136-145)
[2022-04-07 02:30] LABS: Magnesium 2.1 mg/dL (1.8-2.4); Phosphorus 3.1 mg/dL (2.6-4.7)
[2022-04-07 02:33] LABS: Glucose > 800 mg/dL (70-99); Osmolality Calculated 303 mOsm/kg (285-295)
[2022-04-07] MEDS: SODIUM CHLORIDE 0.9% IV 1,000 ML 200 ML IV CONT (03:09)
== END 2022-04-07 04:26 | disposition short-term general hospital (02) ==
PROVIDERS: Emergency Provider Internal Medicine Critical Care Medicine
DX: G45.9 Transient cerebral ischemic attack, unspecified (principal); N28.9 Disorder of kidney and ureter, unspecified; E11.00 Type 2 diabetes mellitus with hyperosmolarity without nonketotic hyperglycemic-hyperosmolar coma (NKHHC); I82.401 Acute embolism and thrombosis of unspecified deep veins of right lower extremity; E03.9 Hypothyroidism, unspecified; Z85.43 Personal history of malignant neoplasm of ovary; Z79.01 Long term (current) use of anticoagulants; Z79.891 Long term (current) use of opiate analgesic; Z79.4 Long term (current) use of insulin
CPT/HCPCS: 36415; 36600; 70450; 80048; 80053; 81001; 82805; 82948; 83605; 83690; 83735; 84100; 84484; 85025; 85610; 85730; 93005; 96361; 96374; 96375; 96376; 99285; J1815; J2250; J7030

== ENCOUNTER 2022-04-20 06:36 | Inpatient (IN) | payer MEDICARE, OTHER, SELFPAY ==
[2022-04-20] VITALS (20 sets, daily range): BP systolic 85–157; BP diastolic 42–83; PULSE 69–153; RESP 10–29; TEMP 36.7–36.9; O2SAT 94–100; BMI 23.1
--- NOTE | ~2022-04-20 | XR_ITS ---
Portable chest x-ray Comparison: 03/04/2022 Clinical History: Cough Findings: Lungs are clear, without focal consolidation or pleural effusion. Cardiomediastinal silho uette is stable. Calcified right paratracheal lymph node is unchanged. Bones and soft tissues are unr emarkable. Impression: Clear lungs. Calcified right paratracheal lymph node. Reviewed, dictated and finalized at location . OR CAREGIVER Impression: Clear lungs. Calcified right paratracheal lymph node.
--- NOTE | ~2022-04-20 | CT_ITS ---
EXAMINATION: CT brain wo con DATE: 04/20/2022 07:58 INDICATION: Weakness. TECHNIQUE: Computed tomography (CT) of the head was performed without intravenous contrast. The dose- length product was 605.33 mGy-cm. COMPARISON: CT dated 04/07/2022 FINDINGS: Mild generalized atrophy. There are scattered mild periventricular and subcortical white ma tter changes, most likely related to small vessel ischemic disease (microangiopathy). No ventriculome zaid or midline shift. Basilar cisterns are patent. There is intracranial atherosclerosis. Paranasal sinuses and mastoids are pneumatized. No depressed skull fractures. IMPRESSION: 1. No acute intracranial abnormality. Reviewed, dictated and finalized at location B. TIC COORDINATOR
--- NOTE | ~2022-04-20 | US_ITS ---
EXAMINATION:US venous doppler LE BI INDICATION:Swelling of the right lower extremity. Previous DVT. Patient on blood thinners. TECHNIQUE: Multiple grayscale, color flow and Doppler images of the right and left lower extremity de ep venous systems were obtained and reviewed. COMPARISON:Ultrasound dated 03/15/2022 FINDINGS: The left common femoral, superficial femoral and popliteal veins demonstrate normal respira tory variation, augmentation and compressibility. Color flow is also seen within the posterior tibia l, peroneal, greater saphenous and profunda veins. There is persistent deep venous thrombosis of the right proximal-distal femoral vein. IMPRESSION: 1: 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 No evidence for DVT in the left leg. Reviewed, dictated and finalized at location L. SLATORS
--- NOTE | 2022-04-20 06:28 | ECG_ITS ---
Measurements Intervals [place] Rate: 102 P: 73 [place]: 183 QRS: 56 QRSD: 90 T: 59 QT: 320 QTc: 417 Interpretive Statements SINUS TACHYCARDIA POSSIBLE RIGHT ATRIAL ENLARGEMENT [0.25mV P WAVE] LEFT ATRIAL ENLARGEMENT [-0.15mV P WAVE IN V1/V2] NONSPECIFIC T-WAVE ABNORMALITY NO PREVIOUS ECG AVAILABLE FOR COMPARISON Electronically Signed On 04-20-2022 14:57:14 DOCUMENTATION CLERK by Josh Sepulveda M.D.
[2022-04-20 06:46] LABS: Glucose Point of Care > 500 mg/dl (65-105)
--- NOTE | 2022-04-20 07:08 | ED.GENADULT ---
HPI - General Adult General Chief complaint: Weakness Stated complaint: DKA Time Seen by Provider: 04/20/22 07:07 Source: patient and EMS Limitations: no limitations History of Present Illness HPI narrative: Patient is a 71-year-old female with a history of type 2 diabetes, numerous admissions for DKA, pulmonary embolism, DVT on chronic anticoagulation, medication noncompliance, presenting to the emergency department for evaluation of altered mental status. Reportedly, patient was found by neighbor to be acting abnormally early this morning, EMS was contacted and the patient was brought to the hospital. At the time of assessment, patient is hyperglycemic, tachycardic. She is oriented to person, states that she believes she is at [facility], states year is 2002. She denies any focal pain, states that she feels terrible. She denies focal headache pain, chest pain or abdominal pain. She reports nausea and vomiting. I reviewed the patient's recent admission and discharge summary as well as patient's recent outpatient primary care physician follow-up in which her medication regimen was changed in order to better control her glucose levels. Her primary care physician increased her lantus to 25u QD and Novolog 3u TIDWM. Pt was given a referral for assisted living also. History obtained from speaking directly with the patient, and I personally reviewdd the patient's chart. Related Data Home Medications Medication Instructions Recorded Confirmed hydrocodone 5 mg-acetaminophen 325 1 tablet PO Q8H PRN Pain (Scale 03/25/22 04/20/22 mg tablet Score 4-6) insulin aspart U-100 100 unit/mL 3 unit subcut TIDWM 03/25/22 04/20/22 (3 mL) subcutaneous pen (Novolog FlexPen U-100 Insulin aspart) acetaminophen 325 mg tablet (Mapap 650 mg PO Q4H PRN Pain (Scale 04/20/22 04/20/22 (acetaminophen)) Score 1-3) Allergies Allergy/AdvReac Type Severity Reaction Status Date / Time banana Allergy Severe SEVERE Verified 04/20/22 07:04 HIVES aspirin AdvReac Intermediate Nausea and Verified 04/20/22 07:04 Vomiting fluoxetine [From Prozac] AdvReac Hallucinati Verified 04/20/22 07:04 ng Review of Systems Review of Systems: ROS unobtainable: Yes unobtainable due to mental status PMFSH Past Medical History Medical History Depression Diabetic peripheral neuropathy Fibromyalgia Hypothyroidism Memory change Ovarian cancer At the age of 33, status post hysterectomy. Patient states that half an ovary was left during surgery. She required no further treatment. Pneumonia due to COVID-19 virus (09/2020) Pulmonary emboli Restless leg syndrome Shingles Type 2 diabetes mellitus Hemoglobin A1c was > 14% August 2021 C-peptide 0.63. Surgical History Surgical History History of tonsillectomy (1970) History of total hysterectomy with bilateral salpingo-oophorectomy (BSO) (1983) History of tubal ligation (1983) Family History Family History Grandparent Family history of premature coronary heart disease, Onset Age: 64 Father Family history of respiratory disorder, Onset Age: 87 Family history of cardiovascular disease Patient's father is Family history of Alzheimer's disease Cerebrovascular accident Mother Family history of primary malignant neoplasm of liver, Onset Age: 64 Family history of malignant neoplasm Patient's mother is , Onset Age: 64 Family history of malignant neoplasm of breast in first degree relative Sibling Heart attack Sibling Heart attack Social History Social History Social History: The patient is . She lives in her own home in [place], [place]. Her daughter Mary used to live with her but it does not sound as though she does any
--- NOTE | 2022-04-20 07:18 | PC.NURSE ---
bedside report given to SAMMY Jane.
[2022-04-20 07:19] LABS: Phosphorus 8.6 mg/dL (2.5-4.5)
[2022-04-20] MEDS: SODIUM CHLORIDE 0.9% IV 1,000 ML 999 ML IV CONT ×4 (07:23→13:45)
[2022-04-20] MEDS: ONDANSETRON INJ 4 MG/2 ML VIAL IV PUSH (07:24)
[2022-04-20 07:25] LABS: Lactic Acid Reflex 3.3 mmol/L (0.7-2.0)
[2022-04-20 07:28] LABS: Alanine Aminotransferase 37 U/L (6-35); Albumin Level 5.3 g/dL (3.5-5.1); Alkaline Phosphatase 201 U/L (38-126); Aspartate Amino Transferase 21 U/L (14-36); Basophils Absolute Auto 0.1 K/mm3 (0.0-0.1); Basophils Percent Auto 0.4 % (0.2-1.2); Bilirubin,Total 0.5 mg/dL (0.2-1.3); Blood Urea Nitrogen 31 mg/dL (7-17); Calcium 11.5 mg/dL (8.4-10.2); Carbon Dioxide < 5 mmol/L (22-30); Chloride 89 mmol/L (98-107); Estimated CRCL calculation 20 ml/min; Estimated Glomerular Filt Rate 30; Glucose 829 mg/dL (65-110); Hematocrit 42.9 % (37.0-47.0); Hemoglobin 12.9 g/dL (12.0-15.0); Immature Granulocyte Absolute 0.12 K/mm3 (0.00-0.031); Immature Granulocyte Percent A 0.6 % (0-0.5); Lipase 71 U/L (23-300); Lymphocytes Absolute Auto 1.14 K/mm3 (0.9-3.2); Lymphocytes Percent Auto 5.4 % (18.3-44.2); Magnesium 2.5 mg/dL (1.6-2.3); Mean Corpuscular HGB Conc 30.1 g/dl (32-36); Mean Corpuscular Volume 103.1 fl (80-100); Mean Platelet Volume 9.5 fl (7.4-10.4); Monocytes Absolute Auto 0.9 K/mm3 (0.1-0.6); Monocytes Percent Auto 4.2 % (2.6-8.5); Neutrophils Absolute Auto 18.7 K/mm3 (1.3-6.7); Neutrophils Percent Auto 89.4 % (45.5-73.1); Platelet Count Result 575 k/mm3 (150-375); Potassium 6.3 mmol/L (3.4-5.0); Red Blood Count 4.16 M/mm3 (4.2-5.4); Red Cell Distribution Width 13.8 % (11.5-14.5); Sodium 129 mmol/L (137-145)
[2022-04-20 07:30] LABS: Alveolar/Arterial O2 Gradient 2.3 mmHg; Base Excess ABG -25.7 mEq/l (+/-2.0); Fractional Inspired Oxygen 21 %; HCO3 ABG 3.6 mEq/l (22.0-26.0); Oxygen Content ABG 17.9 %vol (16.0-22.0); Oxyhemoglobin 96.2 % THb (90.0-100.0); PO2 ABG 129.7 mmHg (80.0-100.0); PO2 FiO2 Ratio Arterial Blood 6.18 %; Total Hemoglobin 13.1 g/dL (12.0-18.0)
[2022-04-20 07:30] LABS: Troponin I < 0.012 ng/mL (0.000-0.034)
[2022-04-20 07:34] LABS: PCO2 ABG 14.8 mmHg (35.0-45.0); Site Drawn LEFT BRACHIAL; pH ABG 7.009 (7.350-7.450)
[2022-04-20 07:35] LABS: Device ROOM AIR
[2022-04-20 07:35] LABS: Procalcitonin 0.3 ng/mL
[2022-04-20] MEDS: INSULIN HUMAN REGULAR (*BKC) 100 UNITS/ML IV PUSH (07:43)
[2022-04-20] MEDS: SODIUM BICARBONATE 8.4% 50 MEQ/50 ML SYRINGE IV PUSH (07:44)
[2022-04-20 07:46] LABS: Influenza A QL RT-PCR Negative (Negative); Influenza B QL RT-PCR Negative (Negative); RSV RNA, RT-PCR Negative (Negative); SARS-CoV-2 RNA PCR Negative
[2022-04-20 07:53] LABS: Macrocytosis 1+ (NORMAL); Platelet Estimate Increased (Adequate); Schistocytes None Seen (NORMAL)
[2022-04-20] MEDS: INSULIN HUMAN REGULAR (*BKC) 100 UNITS in SODIUM CHLORIDE 0.9% IV 99 ML 15.4 UNITS IV CONT (08:01)
[2022-04-20 08:49] LABS: Lipase 69 U/L (23-300)
[2022-04-20 09:48] LABS: Glucose Point of Care > 500 mg/dl (65-105)
[2022-04-20 09:53] LABS: Appearance Urine Clear (Clear); Bilirubin Urine 1+ (Negative); Blood Urine Negative (Negative); Color Urine Yellow (Yellow); Glucose Urine UA 2+ mg/dL (Negative); Ketones Urine 3+ mg/dL (Negative); Leukocyte Esterase Ur Negative LEU/UL (Negative); Nitrate Urine Negative (Negative); Protein Urine 1+ mg/dL (Negative); Urobilinogen Urine 0.2 mg/dL (<2.0)
--- NOTE | 2022-04-20 09:54 | ADMGEN ---
This patient, Karly Leslie, was admitted to Intensive Care Unit-9. Patient/family oriented to hospital policies and general routines including ID bracelet, bed and alarms, visiting hours, pain management, procedures, bathroom and other care routines, personal items, smoking policy, room service/diet, and visiting hours. Information on how to activate the Rapid Response Team has been discussed. Patient/Family are encouraged to report perceived risks to care and to ask questions if they do not understand what they are told or what they should do.
[2022-04-20 09:56] LABS: RBC Urine 0-2 /hpf (0-2); WBC Urine 0-3 /hpf
[2022-04-20 09:58] LABS: Add Urine Microscopic? YES
[2022-04-20 10:03] LABS: Ethanol < 10 mg/dL (<10)
[2022-04-20 10:09] LABS: Glucose Point of Care > 500 mg/dl (65-105)
[2022-04-20 10:12] LABS: Reflex Lactic Acid Yes or No Add Lactic
[2022-04-20 10:12] LABS: Lactic Acid Reflex 4.8 mmol/L (0.7-2.0)
--- NOTE | 2022-04-20 11:24 | WPDCNINT ---
Assessment and Plan Assessment and plan (1) Diabetic ketoacidosis: Code(s): E11.10 - Type 2 diabetes mellitus with ketoacidosis without coma Status: Acute Assessment and Plan: Patient is well known to this service from multiple DKA admission -presented to the ED on 04/20/2022 with complains of generalized weakness, altered mental status and > hypoglycemia under sugars > 800, elevated beta hydroxybutyrate, positive urine ketones, elevated anion gap metabolic acidosis, leukocytosis -patient has been given 2 L IV fluid bolus, will given additional IV fluid bolus in the the ICU -started on insulin infusion per DKA protocol -last hemoglobin A1c was 13.9 on 03/25/2022 -patient may have ice chips -pH on ABG of 7.009 and was given an amp of bicarb in the ER (2) SIRS (systemic inflammatory response syndrome): Code(s): R65.10 - Systemic inflammatory response syndrome (SIRS) of non-infectious origin without acute organ dysfunction Status: Acute Assessment and Plan: Leukocytosis, altered mental status, elevated creatinine from her baseline, low urine output -will check procalcitonin level -chest x-ray and UA were within normal limits -will not start antibiotics at this time -elevated lactic acid, will recheck lactic acid (3) Hyponatremia: Code(s): E87.1 - Hypo-osmolality and hyponatremia Status: Acute Assessment and Plan: Hyponatremia which is likely secondary to elevated sugars -continue to monitor at this time (4) Hyperkalemia: Code(s): E87.5 - Hyperkalemia Status: Acute Assessment and Plan: Hyperkalemia likely related to acidosis -currently on insulin infusion which will have with elevated potassium levels -continue to monitor Plan DVT prophylaxis: SCDs and Eliquis Stress ulcer prophylaxis: Not indicated Nutrition: Ice chips Code Status: Full code Critical Care Time Spent: 46 minutes Due to a high probability of clinically significant, life threatening deterioration, the patient required my highest level of preparedness to intervene emergently and I personally spent this critical care time directly and personally managing the patient. This critical care time included obtaining a history; examining the patient; pulse oximetry; ordering and review of studies; arranging urgent treatment with development of a management plan; evaluation of patient's response to treatment; frequent reassessment; and discussions with other providers. It was exclusive of separately billable procedures and treating other patients and teaching time. Please see Assessment and Plan section and the rest of the note for further information on patient assessment and treatment This dictation may have been done utilizing a voice recognition system. Attempts have been made to correct errors. However, there may be uncorrected grammatical, spelling, and recognitions errors present. [employer] Consult Note Consult date: 04/20/22 Reason for consult: Diabetic ketoacidosis, hyponatremia, metabolic acidosis, leukocytosis, acute kidney injury, hyperkalemia HPI: Karly Leslie is a 71 year old female well known to our service with history of diabetes type 2 recent admissions for DKA, history of pulmonary embolism, DVT on chronic anticoagulation, medical noncompliance presented the ED on 04/20/2022 with complaints of generalized weakness, altered mental status, elevated blood sugars. She was found by a neighbor to be acting abnormal this morning, EMS was contacted and patient was brought to the ED. In the ER patient was found to be hyperglycemic with blood sugars of > 800, potassium 6.5, creatinine 1.04, anion gap was 16, elevated LFTs, elevated beta hydroxybutyrate, lactic acid of 4.8. Patient was given 2 L of IV fluids and started on insulin infusion and transferred to the ICU for further management * patient was recently admitted to the hospital on 03/26/2022 central 03/29/2022 for DKA. Patient seen exam
[2022-04-20 11:48] LABS: Glucose 516 mg/dL (65-110)
[2022-04-20] MEDS: SODIUM CHLORIDE 0.9% IV 1,000 ML 150 ML IV CONT (12:30)
[2022-04-20 12:40] LABS: Procalcitonin 2.2 ng/mL
[2022-04-20 12:52] LABS: Glucose Point of Care 367 mg/dl (65-105)
--- NOTE | 2022-04-20 13:08 | PM.IMHP ---
H&P: HPI History of Present Illness Date/Time: 04/20/22 13:08 Chief Complaint: Weakness Narrative: This is a 71-year-old diabetic patient who has had multiple admissions for DKA. She also has a history of having pulmonary embolism, DVT and is on chronic anticoagulation. The patient is not compliant with monitoring her blood glucoses will is giving herself injections. The patient came to the emergency room department today for evaluation of altered mental status. Her neighbor found her acting abnormally today. The patient was confused when she was initially brought in and she thought that she was in [facility] in the year was 2002. The patient is now more awake and answering questions without difficulty. The patient continues to live home alone and continues to be noncompliant with her insulin. Her white count was noted to be 21,000. PH was 7.009, CO2 was 14.8, PO2 129.7 and 5 bicarb 3.6. Initially her sodium was 129 potassium was 6.3. Repeat chemistry sodium was 137 and potassium was 7 a 5.1. Her anion gap was found to be 36. Creatinine initially 1.7 and repeat was 1.6. She typically has a normal baseline level. Initially a blood sugar was 829 and is now down to 238. Lactic was 3.3, 4.8 and now 1.8. Her beta hydroxybutyrate acetoacetate was 16.5. The patient is negative for influenza a B COVID and RSV. The patient was given IV fluids x3 L of normal saline, Zofran, IV insulin, sodium bicarb, IV fluids, cefepime, and vancomycin. CT of the brain was read as no acute intracranial abnormality. Chest x-ray was read as clear lungs. Calcified right paratracheal lymph node. The patient is being admitted to inpatient ICU on the date of service of 04/20/2022. [facility] Past Medical History Medical History Depression Diabetic peripheral neuropathy Fibromyalgia Hypothyroidism Memory change Ovarian cancer At the age of 33, status post hysterectomy. Patient states that half an ovary was left during surgery. She required no further treatment. Pneumonia due to COVID-19 virus (09/2020) Pulmonary emboli Restless leg syndrome Shingles Type 2 diabetes mellitus Hemoglobin A1c was > 14% August 2021 C-peptide 0.63. Surgical History Surgical History History of tonsillectomy (1970) History of total hysterectomy with bilateral salpingo-oophorectomy (BSO) (1983) History of tubal ligation (1983) Family History Family History Grandparent Family history of premature coronary heart disease, Onset Age: 64 Father Family history of respiratory disorder, Onset Age: 87 Family history of cardiovascular disease Patient's father is Family history of Alzheimer's disease Cerebrovascular accident Mother Family history of primary malignant neoplasm of liver, Onset Age: 64 Family history of malignant neoplasm Patient's mother is , Onset Age: 64 Family history of malignant neoplasm of breast in first degree relative Sibling Heart attack Sibling Heart attack Social History Social History (Updated 04/20/22 @ 15:39 by Lesley Benton NP) Social History: The patient is . She lives in her own home in [place], [place]. Her daughter Mary used to live with her but isn't currently however the patient stated that her daughter is going to move back in with her. She has 2 daughters, and designates her daughter Jose Posey, as her surrogate decision maker. She is a lifelong nonsmoker. She drinks perhaps 4-12 alcoholic beverages a week. No drug use. The patient tells me that she does not drink anymore. Code status: Full code. Smoking status: Never smoker Second hand tobacco smoke exposure: No Alcohol intake: current Substance use: never Substance use type: does not use Other substance usage details: per ER note 4-12 drinks
[2022-04-20 13:36] LABS: Anion Gap 36 mmol/L (8-16); Blood Urea Nitrogen 36 mg/dL (7-17); Calcium 11.4 mg/dL (8.4-10.2); Carbon Dioxide 6 mmol/L (22-30); Chloride 95 mmol/L (98-107); Estimated CRCL calculation 21 ml/min; Estimated Glomerular Filt Rate 32; Glucose 607 mg/dL (65-110); Potassium 5.1 mmol/L (3.4-5.0); Sodium 137 mmol/L (137-145)
[2022-04-20 14:32] LABS: Glucose Point of Care 316 mg/dl (65-105)
[2022-04-20 14:49] LABS: Lactic Acid Reflex 1.8 mmol/L (0.7-2.0)
[2022-04-20] MEDS: INSULIN HUMAN REGULAR (*BKC) 100 UNITS in SODIUM CHLORIDE 0.9% IV 99 ML 10.68 UNITS IV CONT (15:09)
[2022-04-20] MEDS: KCL 20 MEQ/D5/0.45% SOD CHL 1,000 ML 150 ML IV CONT ×2 (15:13→21:59)
[2022-04-20 15:15] LABS: Glucose Point of Care 238 mg/dl (65-105)
[2022-04-20 16:09] LABS: Glucose Point of Care 231 mg/dl (65-105)
[2022-04-20 16:16] LABS: Anion Gap 15 mmol/L (8-16); Blood Urea Nitrogen 38 mg/dL (7-17); Calcium 9.7 mg/dL (8.4-10.2); Carbon Dioxide 15 mmol/L (22-30); Chloride 106 mmol/L (98-107); Estimated CRCL calculation 33 ml/min; Estimated Glomerular Filt Rate 55; Glucose 232 mg/dL (65-110); Potassium 4.2 mmol/L (3.4-5.0); Sodium 136 mmol/L (137-145)
[2022-04-20 17:04] LABS: Glucose Point of Care 215 mg/dl (65-105)
--- NOTE | 2022-04-20 17:14 | PC.NURSE ---
Daughter, Mary, called this morning. Update given and all questions answered.
[2022-04-20] MEDS: hetaSTARCH 6%/NACL 500 ML 250 ML IV CONT (18:10)
[2022-04-20 18:11] LABS: Glucose Point of Care 188 mg/dl (65-105)
[2022-04-20 18:55] LABS: Glucose Point of Care 162 mg/dl (65-105)
[2022-04-20] MEDS: APIXABAN 5 MG TABLET PO (20:02)
[2022-04-20 20:21] LABS: Anion Gap 5 mmol/L (8-16); Blood Urea Nitrogen 39 mg/dL (7-17); Calcium 9.3 mg/dL (8.4-10.2); Carbon Dioxide 22 mmol/L (22-30); Chloride 109 mmol/L (98-107); Estimated CRCL calculation 46 ml/min; Estimated Glomerular Filt Rate > 60; Glucose 132 mg/dL (65-110); Potassium 4.1 mmol/L (3.4-5.0); Sodium 136 mmol/L (137-145)
[2022-04-20 20:50] LABS: Glucose Point of Care 157 mg/dl (65-105)
[2022-04-20 21:25] LABS: Glucose Point of Care 83 mg/dl (65-105)
[2022-04-20 22:03] LABS: Glucose Point of Care 84 mg/dl (65-105)
[2022-04-20] MEDS: ALBUMIN HUMAN 25% 25 GM/100 ML 100 ML IVPB (22:38)
[2022-04-20] MEDS: SODIUM CHLORIDE 0.9% IV 1,000 ML 100 ML IV CONT (22:39)
[2022-04-20] MEDS: INSULIN GLARGINE (*BKC) 100 UNITS/ML 20 UNITS SUB-Q (22:40)
[2022-04-20 22:56] LABS: Glucose Point of Care 101 mg/dl (65-105)
[2022-04-21] VITALS (15 sets, daily range): BP systolic 92–126; BP diastolic 47–71; PULSE 61–80; RESP 14–19; TEMP 36.5–37; O2SAT 98–100
[2022-04-21 00:21] LABS: Glucose Point of Care 65 mg/dl (65-105)
[2022-04-21 00:53] LABS: Anion Gap 7 mmol/L (8-16); Blood Urea Nitrogen 35 mg/dL (7-17); Calcium 9.4 mg/dL (8.4-10.2); Carbon Dioxide 20 mmol/L (22-30); Chloride 109 mmol/L (98-107); Estimated CRCL calculation 53 ml/min; Estimated Glomerular Filt Rate > 60; Glucose 75 mg/dL (65-110); Potassium 4.2 mmol/L (3.4-5.0); Sodium 136 mmol/L (137-145)
[2022-04-21 00:54] LABS: Glucose Point of Care 81 mg/dl (65-105)
[2022-04-21 04:56] LABS: Basophils Percent Auto 0.1 % (0.2-1.2); Eosinophils Percent Auto 0.1 % (0-4.4); Hematocrit 28.8 % (37.0-47.0); Hemoglobin 8.9 g/dL (12.0-15.0); Immature Granulocyte Absolute 0.02 K/mm3 (0.00-0.031); Immature Granulocyte Percent A 0.2 % (0-0.5); Lymphocytes Percent Auto 16.6 % (18.3-44.2); Mean Corpuscular HGB Conc 30.9 g/dl (32-36); Mean Corpuscular Hemoglobin 29.7 pg (26-34); Mean Platelet Volume 8.9 fl (7.4-10.4); Monocytes Absolute Auto 0.6 K/mm3 (0.1-0.6); Monocytes Percent Auto 6.4 % (2.6-8.5); Neutrophils Absolute Auto 6.9 K/mm3 (1.3-6.7); Neutrophils Percent Auto 76.6 % (45.5-73.1); Platelet Count Result 222 k/mm3 (150-375); Red Cell Distribution Width 13.8 % (11.5-14.5)
[2022-04-21 05:06] LABS: Alanine Aminotransferase 108 U/L (6-35); Albumin Level 3.4 g/dL (3.5-5.1); Alkaline Phosphatase 248 U/L (38-126); Anion Gap 7 mmol/L (8-16); Aspartate Amino Transferase 303 U/L (14-36); Bilirubin,Total 0.4 mg/dL (0.2-1.3); Blood Urea Nitrogen 29 mg/dL (7-17); Calcium 9.1 mg/dL (8.4-10.2); Carbon Dioxide 20 mmol/L (22-30); Chloride 106 mmol/L (98-107); Cholesterol 131 mg/dL (0-200); Estimated CRCL calculation 63 ml/min; Estimated Glomerular Filt Rate > 60; Glucose 118 mg/dL (65-110); HDL Direct 40 mg/dL; Lipase 103 U/L (23-300); Magnesium 1.9 mg/dL (1.6-2.3); Potassium 4.3 mmol/L (3.4-5.0); Sodium 133 mmol/L (137-145); Triglycerides 123 mg/dL (<150)
[2022-04-21 05:08] LABS: Lactic Acid Reflex 1.4 mmol/L (0.7-2.0)
[2022-04-21 05:17] LABS: LDL Cholesterol Direct 59 mg/dL
[2022-04-21 06:58] LABS: Thyroid Stimulating Hormone Reflex 0.902 uIU/mL (0.465-4.68)
[2022-04-21] MEDS: ALBUMIN HUMAN 25% 25 GM/100 ML 100 ML IVPB ×3 (07:07→17:44)
[2022-04-21 07:18] LABS: Glucose Point of Care 107 mg/dl (65-105)
[2022-04-21] MEDS: SODIUM CHLORIDE 0.9% IV 500 ML IV CONT (07:53)
[2022-04-21] MEDS: APIXABAN 5 MG TABLET PO ×2 (08:09→21:03)
[2022-04-21] MEDS: ACETAMINOPHEN 325 MG TABLET 650 MG PO ×3 (11:07→23:28)
[2022-04-21] MEDS: SODIUM CHLORIDE 0.9% IV 1,000 ML 100 ML IV CONT (11:15)
[2022-04-21] MEDS: INSULIN ASPART (*BKC) 100 UNITS/ML SUB-Q ×2 (11:26→17:18)
[2022-04-21 11:35] LABS: Glucose Point of Care 315 mg/dl (65-105)
--- NOTE | 2022-04-21 11:44 | PCDIET ---
Physician consult for DKA. Patient is currently tolerating a [facility] diet. She states to no weight loss. Glucerna shakes ordered per MD orders providing an additional 220 kcals 10 gms protein. Agree with diet orders. No further nutritional interventions needed. Thank you for the consult.
--- NOTE | 2022-04-21 11:45 | WPDINTPN ---
Progress Note: A&P Assessment and Plan (1) Diabetic ketoacidosis: Code(s): E11.10 - Type 2 diabetes mellitus with ketoacidosis without coma Status: Acute Assessment and Plan: Patient is well known to this service from multiple DKA admission -presented to the ED on 04/20/2022 with complains of generalized weakness, altered mental status and > hypoglycemia under sugars > 800, elevated beta hydroxybutyrate, positive urine ketones, elevated anion gap metabolic acidosis, leukocytosis -patient has received adequate amount of IV fluids -off insulin infusion -sliding scale insulin, Accu-Cheks -started on Lantus -last hemoglobin A1c was 13.9 on 03/25/2022 -on diabetic diet (2) SIRS (systemic inflammatory response syndrome): Code(s): R65.10 - Systemic inflammatory response syndrome (SIRS) of non-infectious origin without acute organ dysfunction Status: Acute Assessment and Plan: Leukocytosis, altered mental status, elevated creatinine from her baseline, low urine output -will check procalcitonin level -chest x-ray and UA were within normal limits -will not start antibiotics at this time -elevated lactic acid, repeat lactic acid was within normal limits -WBC count has resolved -hypotension has improved which was probably likely related to hypovolemia patient did receive adequate amount of IV fluids and blood pressures have been stable (3) Hyponatremia: Code(s): E87.1 - Hypo-osmolality and hyponatremia Status: Acute Assessment and Plan: Hyponatremia which is likely secondary to elevated sugars -improving (4) Hyperkalemia: Code(s): E87.5 - Hyperkalemia Status: Acute Assessment and Plan: Resolved Hyperkalemia likely related to acidosis -currently on insulin infusion which will have with elevated potassium levels -continue to monitor (5) Right leg DVT: Code(s): I82.401 - Acute embolism and thrombosis of unspecified deep veins of right lower extremity Status: Acute Assessment and Plan: 04/21/2022: Lower extremity Venous Doppler: 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 No evidence for DVT in the left leg -continue Eliquis Plan DVT prophylaxis: Eliquis Stress ulcer prophylaxis: Not indicated Nutrition: Diabetic diet Code Status: Full code Critical Care Time Spent:31 minutes Patient may transfer to medical floor after checking a hospital Due to a high probability of clinically significant, life threatening deterioration, the patient required my highest level of preparedness to intervene emergently and I personally spent this critical care time directly and personally managing the patient. This critical care time included obtaining a history; examining the patient; pulse oximetry; ordering and review of studies; arranging urgent treatment with development of a management plan; evaluation of patient's response to treatment; frequent reassessment; and discussions with other providers. It was exclusive of separately billable procedures and treating other patients and teaching time. Please see Assessment and Plan section and the rest of the note for further information on patient assessment and treatment This dictation may have been done utilizing a voice recognition system. Attempts have been made to correct errors. However, there may be uncorrected grammatical, spelling, and recognitions errors present. Subjective Date/time seen: 04/21/22 11:45 Interval history: Reason reason consult: Diabetic ketoacidosis, hyponatremia, metabolic acidosis, leukocytosis, acute kidney injury, hyperkalemia 04/21/2022: Patient seen and examined the ICU, is awake, alert, sitting up in chair, hemodynamically stable. Patient was hypotensive overnight requiring extra fluids, blood pressures are stable this morning. Patient denies any nausea, vomiting, abdominal pain, chest pain, difficulty breathing. She is complaining of pain in the right leg where
[2022-04-21] MEDS: INSULIN GLARGINE (*BKC) 100 UNITS/ML 20 UNITS SUB-Q (12:47)
[2022-04-21 17:02] LABS: Glucose Point of Care 295 mg/dl (65-105)
[2022-04-21 21:39] LABS: Glucose Point of Care 349 mg/dl (65-105)
[2022-04-21] MEDS: INSULIN ASPART (*BKC) 100 UNITS/ML 6 UNITS SUB-Q (21:39)
[2022-04-22 03:07] VITALS: BP 111/66; PULSE 54; RESP 17; TEMP 36.4; O2SAT 100
[2022-04-22] MEDS: SODIUM CHLORIDE 0.9% IV 1,000 ML 100 ML IV CONT (04:40)
[2022-04-22 05:08] LABS: Basophils Percent Auto 0.4 % (0.2-1.2); Eosinophils Percent Auto 0.6 % (0-4.4); Hemoglobin 10.2 g/dL (12.0-15.0); Immature Granulocyte Absolute 0.01 K/mm3 (0.00-0.031); Immature Granulocyte Percent A 0.2 % (0-0.5); Lymphocytes Absolute Auto 1.86 K/mm3 (0.9-3.2); Lymphocytes Percent Auto 36.2 % (18.3-44.2); Mean Corpuscular HGB Conc 31.9 g/dl (32-36); Mean Corpuscular Hemoglobin 31.1 pg (26-34); Mean Corpuscular Volume 97.6 fl (80-100); Mean Platelet Volume 8.8 fl (7.4-10.4); Monocytes Absolute Auto 0.3 K/mm3 (0.1-0.6); Monocytes Percent Auto 6.4 % (2.6-8.5); Neutrophils Absolute Auto 2.9 K/mm3 (1.3-6.7); Neutrophils Percent Auto 56.2 % (45.5-73.1); Platelet Count Result 187 k/mm3 (150-375); Red Blood Count 3.28 M/mm3 (4.2-5.4); Red Cell Distribution Width 13.9 % (11.5-14.5); White Blood Count 5.1 K/mm3 (4.5-10.0)
[2022-04-22 05:21] LABS: Anion Gap 5 mmol/L (8-16); Blood Urea Nitrogen 16 mg/dL (7-17); Calcium 9.6 mg/dL (8.4-10.2); Carbon Dioxide 21 mmol/L (22-30); Chloride 108 mmol/L (98-107); Estimated CRCL calculation 76 ml/min; Estimated Glomerular Filt Rate > 60; Glucose 198 mg/dL (65-110); Magnesium 2.1 mg/dL (1.6-2.3); Phosphorus 1.7 mg/dL (2.5-4.5); Potassium 3.5 mmol/L (3.4-5.0); Sodium 134 mmol/L (137-145)
[2022-04-22] MEDS: ACETAMINOPHEN 325 MG TABLET 650 MG PO ×2 (05:27→11:43)
[2022-04-22 08:25] LABS: Glucose Point of Care 181 mg/dl (65-105)
[2022-04-22] MEDS: INSULIN GLARGINE (*BKC) 100 UNITS/ML 20 UNITS SUB-Q (08:35)
[2022-04-22] MEDS: APIXABAN 5 MG TABLET PO (08:37)
--- NOTE | 2022-04-22 09:26 | PM.DS ---
DS: Admitting Diagnosis Discharge Date 04/22/22 Admitting Diagnosis dka DS: Discharge Diagnosis Discharge Diagnosis (1) Diabetic ketoacidosis: Code(s): E11.10 - Type 2 diabetes mellitus with ketoacidosis without coma Status: Acute Assessment and Plan: Patient is well known to this service from multiple DKA admission -presented to the ED on 04/20/2022 with complains of generalized weakness, altered mental status and > hypoglycemia under sugars > 800, elevated beta hydroxybutyrate, positive urine ketones, elevated anion gap metabolic acidosis, leukocytosis -patient has received adequate amount of IV fluids -off insulin infusion -sliding scale insulin, Accu-Cheks -started on Lantus -last hemoglobin A1c was 13.9 on 03/25/2022 -on diabetic diet (2) SIRS (systemic inflammatory response syndrome): Code(s): R65.10 - Systemic inflammatory response syndrome (SIRS) of non-infectious origin without acute organ dysfunction Status: Acute Assessment and Plan: Leukocytosis, altered mental status, elevated creatinine from her baseline, low urine output -will check procalcitonin level -chest x-ray and UA were within normal limits -will not start antibiotics at this time -elevated lactic acid, repeat lactic acid was within normal limits -WBC count has resolved -hypotension has improved which was probably likely related to hypovolemia patient did receive adequate amount of IV fluids and blood pressures have been stable (3) Hyponatremia: Code(s): E87.1 - Hypo-osmolality and hyponatremia Status: Acute Assessment and Plan: Hyponatremia which is likely secondary to elevated sugars -improving (4) Hyperkalemia: Code(s): E87.5 - Hyperkalemia Status: Acute Assessment and Plan: Resolved Hyperkalemia likely related to acidosis -currently on insulin infusion which will have with elevated potassium levels -continue to monitor (5) Right leg DVT: Code(s): I82.401 - Acute embolism and thrombosis of unspecified deep veins of right lower extremity Status: Acute Assessment and Plan: 04/21/2022: Lower extremity Venous Doppler: 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 No evidence for DVT in the left leg -continue Eliquis Plan DVT prophylaxis: Eliquis Stress ulcer prophylaxis: Not indicated Nutrition: Diabetic diet Code Status: Full code DS: Summary Hospital Course Hospital Course: 71-year-old patient past medical history significant for diabetes with multiple admissions for DKA because patient has noncompliance with insulin. She again presented with DKA and was treated in the ICU with an insulin drip. Electrolytes were monitored. Anion gap closed. She was transitioned to subcutaneous insulin and all symptoms resolved. Extensive conversation was had with patient regarding management of her diabetes. She is refusing to take insulin or medications for her diabetes. Follow-up outpatient. Time Spent with Patient Time attestation: Total time spent providing and/or coordinating discharge services: Exam Narrative: General: Patient is pleasant, in no acute distress HEENT:? Pupils are equal and reactive, dry oral mucosa Neck: Supple Respiratory:? Clear to auscultation bilaterally, no wheezing, adequate air entry Cardiac:? S1-S2 is normal, regular rate and rhythm Abdomen:? Soft, nontender, nondistended, normoactive bowel sounds Extremities:? No edema palpable pedal pulses Neuro:? Patient is awake alert, oriented x3, follows simple commands in all extremities answers to questions appropriately Skin:? No lesions noted Psych:? Flat affect DS: Data Data Completed and Pending Labs on day of discharge: Labs from last 24 hours 04/22/22 04/22/22 04/22/22 08:13 04:49 04:49 WBC 5.1 RBC 3.28 L Hgb 10.2 L Hct 32.0 L MCV 97.6 MCH 31.1 MCHC 31.9 L RDW 13.9 Plt Count 187 MPV 8.8 Immature Gran % (Auto
[2022-04-22 12:03] LABS: Glucose Point of Care 318 mg/dl (65-105)
[2022-04-22] MEDS: INSULIN ASPART (*BKC) 100 UNITS/ML SUB-Q ×2 (12:07→17:04)
[2022-04-22 14:08] VITALS: BP 118/70; PULSE 83; RESP 17; TEMP 36.8; O2SAT 100
[2022-04-22 16:54] LABS: Glucose Point of Care 300 mg/dl (65-105)
== END 2022-04-22 18:05 | disposition home health service (06) | DRG 638 ==
LOC: ANHED 08:29 → ANHICU 08:49 → ANH2MED 04-21 14:41
PROVIDERS: Emergency Medicine; Internal Medicine; Nurse Practitioner; Admitting Provider Family Medicine; Emergency Provider Emergency Medicine; PCP Family Medicine; Visit Provider Student in an Organized Health Care Education/Training Program
DX: E11.10 Type 2 diabetes mellitus with ketoacidosis without coma (principal); E87.1 Hypo-osmolality and hyponatremia; R65.10 Systemic inflammatory response syndrome (SIRS) of non-infectious origin without acute organ dysfunction; I82.411 Acute embolism and thrombosis of right femoral vein; E87.5 Hyperkalemia; G25.81 Restless legs syndrome; F32.A Depression, unspecified; E11.42 Type 2 diabetes mellitus with diabetic polyneuropathy; M79.7 Fibromyalgia; Z20.822 Contact with and (suspected) exposure to COVID-19; Z85.43 Personal history of malignant neoplasm of ovary; Z91.14 Patient's other noncompliance with medication regimen; Z79.01 Long term (current) use of anticoagulants; Z86.16 Personal history of COVID-19; Z86.711 Personal history of pulmonary embolism; Z79.4 Long term (current) use of insulin; Z79.899 Other long term (current) drug therapy; Z82.49 Family history of ischemic heart disease and other diseases of the circulatory system; Z80.3 Family history of malignant neoplasm of breast; Z80.8 Family history of malignant neoplasm of other organs or systems
CPT/HCPCS: 36415; 36600; 51701; 70450; 71045; 80048; 80053; 80061; 80307; 81001; 82010; 82805; 82947; 82948; 83605; 83690; 83735; 84100; 84145; 84443; 84484; 85025; 87040; 87637; 93005; 93970; 96361; 96365; 96375; 99291; A9270; J0131; J1815; J2405; J3480; J7030; J7040; P9047

== ENCOUNTER 2022-04-25 09:12 | Inpatient (IN) | payer MEDICARE, OTHER, SELFPAY ==
[2022-04-25] VITALS (11 sets, daily range): BP systolic 103–166; BP diastolic 42–83; PULSE 77–113; RESP 15–25; TEMP 36.4–36.8; O2SAT 98–100
--- NOTE | ~2022-04-25 | CT_ITS ---
EXAMINATION: CT brain wo con DATE: 04/25/2022 10:08 INDICATION: Altered mental status. TECHNIQUE: Computed tomography (CT) of the head was performed without intravenous contrast. The dose- length product was 756.67 mGy-cm. Automated exposure control and iterative reconstruction technique w ere employed. COMPARISON: CT dated 04/20/2022 FINDINGS: Mild generalized atrophy. There are scattered mild periventricular and subcortical white ma tter changes, most likely related to small vessel ischemic disease (microangiopathy). No acute intrac ranial hemorrhage, infarction, mass or mass effect. There is intracranial atherosclerosis. Paranasal sinuses and mastoids are pneumatized. Midline sagittal images demonstrate a normal corpus callosum an d craniovertebral junction. IMPRESSION: 1. No acute intracranial abnormality. Reviewed, dictated and finalized at location B. ER LABELS
--- NOTE | ~2022-04-25 | XR_ITS ---
Portable chest x-ray Comparison: 04/20/2022 Clinical History: Altered mental status Findings: Calcified right paratracheal lymph nodes are unchanged. Lungs remain clear. Cardiomediast inal silhouette is stable. Bones and soft tissues are unremarkable. Impression: Clear lungs. Stable calcified right paratracheal lymph nodes. Reviewed, dictated and finalized at location . AL EDUCATOR Impression: Clear lungs. Stable calcified right paratracheal lymph nodes.
--- NOTE | 2022-04-25 09:18 | ECG_ITS ---
Measurements Intervals [place] Rate: 108 P: [place]: 0 QRS: 27 QRSD: 91 T: 28 QT: 310 QTc: 416 Interpretive Statements SINUS TACHYCARDIA WITH PREMATURE ATRIAL CONTRACTIONS LEFT ATRIAL ENLARGEMENT NONSPECIFIC ST ABNORMALITY BORDERLINE ECG COMPARED TO ECG 04/20/2022 06:42:37 PREMATURE ATRIAL CONTRACTIONS ARE NOT APPRECIATED Electronically Signed On 04-25-2022 14:16:46 [employer]ODUCTS FABRICATOR ASSEMBLER by Alberto Louise M.D.
[2022-04-25 09:21] LABS: Glucose Point of Care > 500 mg/dl (65-105)
--- NOTE | 2022-04-25 09:30 | ED.RECABL ---
HPI - Recheck/Abnormal Lab/Rx General Chief Complaint: Recheck/Abnormal Lab/Rx <Ava Iraheta PA-C - Last Filed: 04/25/22 16:22> Stated Complaint: DKA <Ava Iraheta PA-C - Last Filed: 04/25/22 16:22> Time Seen by Provider: 04/25/22 09:12 <Ava Iraheta PA-C - Last Filed: 04/25/22 16:22> Source: EMS and RN notes reviewed <Ava Iraheta PA-C - Last Filed: 04/25/22 16:22> Mode of arrival: EMS <Ava Iraheta PA-C - Last Filed: 04/25/22 16:22> Limitations: altered mental status <Ava Iraheta PA-C - Last Filed: 04/25/22 16:22> History of Present Illness HPI narrative: This is a 71-year-old female that presents to the emergency department for altered mental status. Reportedly patient's daughter found her at home lethargic and altered. Patient is well-known for multiple admissions for DKA as she is noncompliant with her medications. Patient's blood sugar is currently reading high. Unable to get any history from the patient as she is currently obtunded. <Ava Iraheta PA-C - Last Filed: 04/25/22 16:22> Related Data Home Medications: Home Medications Medication Instructions Recorded Confirmed hydrocodone 5 mg-acetaminophen 325 1 tablet PO Q8H PRN Pain (Scale 03/25/22 04/25/22 mg tablet Score 4-6) insulin aspart U-100 100 unit/mL 3 unit subcut TIDWM 03/25/22 04/25/22 (3 mL) subcutaneous pen (Novolog FlexPen U-100 Insulin aspart) acetaminophen 325 mg tablet (Mapap 650 mg PO Q4H PRN Pain (Scale 04/20/22 04/25/22 (acetaminophen)) Score 1-3) <Ava Iraheta PA-C - Last Filed: 04/25/22 16:22> Allergies/Adverse Reactions: Allergies Allergy/AdvReac Type Severity Reaction Status Date / Time banana Allergy Severe SEVERE Verified 04/21/22 07:23 HIVES aspirin AdvReac Intermediate Nausea and Verified 04/21/22 07:23 Vomiting fluoxetine [From Prozac] AdvReac Hallucinati Verified 04/21/22 07:23 ng <Ava Iraheta PA-C - Last Filed: 04/25/22 16:22> Review of Systems Review of Systems: ROS unobtainable: Yes unobtainable due to mental status <Ava Iraheta PA-C - Last Filed: 04/25/22 16:22> [facility] Past Medical History Medical History: Medical History Depression Diabetic peripheral neuropathy Fibromyalgia Hypothyroidism Memory change Ovarian cancer At the age of 33, status post hysterectomy. Patient states that half an ovary was left during surgery. She required no further treatment. Pneumonia due to COVID-19 virus (09/2020) Pulmonary emboli Restless leg syndrome Shingles Type 2 diabetes mellitus Hemoglobin A1c was > 14% August 2021 C-peptide 0.63. <PETR Pacheco Last Filed: 04/25/22 16:22> Surgical History Surgical History: Surgical History History of tonsillectomy (1970) History of total hysterectomy with bilateral salpingo-oophorectomy (BSO) (1983) History of tubal ligation (1983) <Ava Iraheta PA-C - Last Filed: 04/25/22 16:22> Family History Family History: Family History Grandparent Family history of premature coronary heart disease, Onset Age: 64 Father Family history of respiratory disorder, Onset Age: 87 Family history of cardiovascular disease Patient's father is Family history of Alzheimer's disease Cerebrovascular accident Mother Family history of primary malignant neoplasm of liver, Onset Age: 64 Family history of malignant neoplasm Patient's mother is , Onset Age: 64 Family history of malignant neoplasm of breast in first degree relative Sibling Heart attack Sibling Heart attack <PETR Pacheco Last Filed: 04/25/22 16:22> Social History Social History: Social History (System 04/21/22 @ 07:23 by Raoul Parmar) Social History: The patient is widowe
[2022-04-25 09:40] LABS: Alveolar/Arterial O2 Gradient 1.8 mmHg; Base Excess ABG -30.1 mEq/l (+/-2.0); Carboxyhemoglobin 0.1 % THb (0-2.0); Fractional Inspired Oxygen 21 %; HCO3 ABG 2.3 mEq/l (22.0-26.0); Methemoglobin ABG 0.6 %THb (0-1.5); Oxygen Content ABG 15.3 %vol (16.0-22.0); Oxygen Saturation ABG 95.6 % (95.0-100.0); Oxyhemoglobin 95.6 % THb (90.0-100.0); PO2 ABG 131.6 mmHg (80.0-100.0); PO2 FiO2 Ratio Arterial Blood 6.27 %; Reduced Hemoglobin 3.7 %THb (0-5.0); Total Hemoglobin 11.2 g/dL (12.0-18.0)
[2022-04-25 09:41] LABS: Device ROOM AIR; Modified Allen's Test Pass; PCO2 ABG 13.6 mmHg (35.0-45.0); Site Drawn RIGHT RADIAL; pH ABG 6.846 (7.350-7.450)
[2022-04-25 09:46] LABS: Basophils Absolute Auto 0.1 K/mm3 (0.0-0.1); Basophils Percent Auto 0.4 % (0.2-1.2); Eosinophils Absolute Auto 0.1 K/mm3 (0-0.3); Eosinophils Percent Auto 0.4 % (0-4.4); Hematocrit 37.1 % (37.0-47.0); Hemoglobin 10.3 g/dL (12.0-15.0); Immature Granulocyte Absolute 0.27 K/mm3 (0.00-0.031); Immature Granulocyte Percent A 1.7 % (0-0.5); Lymphocytes Absolute Auto 2.52 K/mm3 (0.9-3.2); Lymphocytes Percent Auto 15.6 % (18.3-44.2); Mean Corpuscular HGB Conc 27.8 g/dl (32-36); Mean Corpuscular Hemoglobin 30.7 pg (26-34); Mean Corpuscular Volume 110.7 fl (80-100); Mean Platelet Volume 10.2 fl (7.4-10.4); Monocytes Absolute Auto 0.9 K/mm3 (0.1-0.6); Monocytes Percent Auto 5.3 % (2.6-8.5); Neutrophils Absolute Auto 12.4 K/mm3 (1.3-6.7); Neutrophils Percent Auto 76.6 % (45.5-73.1); Platelet Count Result 330 k/mm3 (150-375); Red Blood Count 3.35 M/mm3 (4.2-5.4); Red Cell Distribution Width 14.8 % (11.5-14.5); White Blood Count 16.2 K/mm3 (4.5-10.0)
[2022-04-25] MEDS: SODIUM CHLORIDE 0.9% IV 1,000 ML 999 ML IV CONT ×3 (09:47→12:20)
[2022-04-25 09:56] LABS: Lactic Acid Reflex 1.6 mmol/L (0.7-2.0)
[2022-04-25 10:07] LABS: Burr Cells 2+ (NORMAL); Macrocytosis 1+ (NORMAL); Platelet Estimate Adequate (Adequate); Schistocytes None Seen (NORMAL)
[2022-04-25 10:19] LABS: Influenza A QL RT-PCR Negative (Negative); Influenza B QL RT-PCR Negative (Negative); SARS-CoV-2 RNA PCR Negative
[2022-04-25 10:44] LABS: Appearance Urine Clear (Clear); Bacteria Urine None Seen /hpf; Bilirubin Urine Negative (Negative); Blood Urine Negative (Negative); Color Urine Yellow (Yellow); Glucose Urine UA 3+ mg/dL (Negative); Ketones Urine 4+ mg/dL (Negative); Leukocyte Esterase Ur Negative LEU/UL (Negative); Nitrate Urine Negative (Negative); Protein Urine 1+ mg/dL (Negative); RBC Urine 0-2 /hpf (0-2); Specific Grav Ur 1.023 (1.001-1.035); Squamous Epithelial Cell Urine None seen /hpf (Few); Urobilinogen Urine 0.2 mg/dL (<2.0); WBC Urine 0-5 /hpf
[2022-04-25 10:48] LABS: Add Urine Microscopic? YES
[2022-04-25 10:53] LABS: Alanine Aminotransferase 114 U/L (6-35); Albumin Level 4.8 g/dL (3.5-5.1); Alkaline Phosphatase 321 U/L (38-126); Aspartate Amino Transferase 68 U/L (14-36); Bilirubin,Total 0.4 mg/dL (0.2-1.3); Blood Urea Nitrogen 26 mg/dL (7-17); Calcium 11.2 mg/dL (8.4-10.2); Carbon Dioxide < 5 mmol/L (22-30); Chloride 98 mmol/L (98-107); Estimated CRCL calculation 37 ml/min; Estimated Glomerular Filt Rate 49; Magnesium 2.8 mg/dL (1.6-2.3); Phosphorus 8.1 mg/dL (2.5-4.5); Potassium 5.9 mmol/L (3.4-5.0); Sodium 131 mmol/L (137-145)
[2022-04-25 11:05] LABS: Glucose 874 mg/dL (65-110)
[2022-04-25] MEDS: SODIUM BICARBONATE 8.4% 50 MEQ/50 ML SYRINGE IV PUSH ×2 (11:17→12:05)
[2022-04-25] MEDS: INSULIN HUMAN REGULAR (*BKC) 100 UNITS/ML 6 UNITS IV PUSH (11:21)
[2022-04-25 11:22] LABS: Lipase 112 U/L (23-300)
[2022-04-25] MEDS: INSULIN HUMAN REGULAR (*BKC) 100 UNITS in SODIUM CHLORIDE 0.9% IV 99 ML 16.3 UNITS IV CONT (11:35)
[2022-04-25] MEDS: CEFEPIME 2 GM/NS 50 ML 2 GM/50 ML BAG IVPB (11:38)
--- NOTE | 2022-04-25 12:03 | WPDCNINT ---
Assessment and Plan Assessment and plan (1) DKA (diabetic ketoacidosis): Qualifiers: Diabetes mellitus complication detail: without coma Diabetes mellitus type: type 1 Qualified Code(s): E10.10 - Type 1 diabetes mellitus with ketoacidosis without coma Code(s): E11.10 - Type 2 diabetes mellitus with ketoacidosis without coma Status: Acute Assessment and Plan: Patient presented the ED with lethargy and altered mental status, in the ED patient was diagnosed with ketoacidosis with blood sugars of 864, anion gap metabolic acidosis, elevated beta hydroxybutyrate, urine ketones and glucose were positive. -3 L of IV fluids have been ordered in the ER -she has been started on insulin infusion -received 2 amps of sodium bicarbonate for pH of 6.84 -will continue IV fluids and insulin infusion per DKA protocol -patient was recently admitted to [facility] from 04/20/2022 through 04/22/2022 for diabetic ketoacidosis -patient has been noncompliant at home has had multiple admissions for DKA. -hemoglobin A1c is 13.9 on 03/25/2022 (2) Dehydration: Code(s): E86.0 - Dehydration Status: Acute Assessment and Plan: Hypovolemia and metabolic acidosis likely related to DKA -will continue to monitor (3) Acute kidney failure: Code(s): N17.9 - Acute kidney failure, unspecified Status: Acute Assessment and Plan: Patient normal creatinine is 0.4-0.6 -patient's creatinine is 1.10 this admission -will be receiving IV fluids -will continue to monitor urine output, renal function and electrolytes (4) Acute hyperkalemia: Code(s): E87.5 - Hyperkalemia Status: Acute Assessment and Plan: Likely related acidosis, currently on insulin infusion -continue to monitor (5) Hyponatremia: Code(s): E87.1 - Hypo-osmolality and hyponatremia Status: Acute Assessment and Plan: Hyponatremia could be related to pseudohyponatremia from severe hyperglycemia -continue to monitor (6) Right leg DVT: Code(s): I82.401 - Acute embolism and thrombosis of unspecified deep veins of right lower extremity Status: Acute Assessment and Plan: Patient on Eliquis at home for right lower extremity DVT -lower extremity venous Dopplers on 04/21/2022: 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 No evidence for DVT in the left leg -will continue Eliquis Plan DVT prophylaxis: Eliquis Stress ulcer prophylaxis: Not indicated Nutrition: NPO for now Code Status: Full code Critical Care Time Spent: 47 minutes Due to a high probability of clinically significant, life threatening deterioration, the patient required my highest level of preparedness to intervene emergently and I personally spent this critical care time directly and personally managing the patient. This critical care time included obtaining a history; examining the patient; pulse oximetry; ordering and review of studies; arranging urgent treatment with development of a management plan; evaluation of patient's response to treatment; frequent reassessment; and discussions with other providers. It was exclusive of separately billable procedures and treating other patients and teaching time. Please see Assessment and Plan section and the rest of the note for further information on patient assessment and treatment This dictation may have been done utilizing a voice recognition system. Attempts have been made to correct errors. However, there may be uncorrected grammatical, spelling, and recognitions errors present. Natural Resource Economist Consult Note Consult date: 04/25/22 HPI: Karly Leslie is a 71 year old female Karly Leslie is a 71 year old female well known to our service with history of diabetes type 2 recent admissions for DKA, history of pulmonary embolism, DVT on chronic anticoagulation, medical noncompliance presented the ED on 04/25/2022 with complaints of generalized weakness, altered mental statu
[2022-04-25 12:41] LABS: Influenza A QL RT-PCR Negative (Negative); Influenza B QL RT-PCR Negative (Negative); RSV RNA, RT-PCR Negative (Negative); SARS-CoV-2 RNA PCR Negative
[2022-04-25 12:47] LABS: Glucose Point of Care > 500 mg/dl (65-105)
--- NOTE | 2022-04-25 12:59 | PM.IMHP ---
H&P: HPI History of Present Illness Date/Time: 04/25/22 12:59 Chief Complaint: altered mental status Narrative: this is a 71-year-old female who presents to the ED with altered mental status. She was recently discharged few days ago after admission with DKA. She presents back 0 when her daughter found her home lethargic and confused. She has been admitted multiple times with similar episodes when she gets diagnosis DKA has she is noncompliant with her medication. In the ED evaluation she was hyperglycemic and a not surprisingly back again in DKA. She was started on the DKA protocol and is admitted to the ICU for further treatment. Currently obtunded moans and rest of the review of system could not be completed due to her mental status. Review of Systems Review of Systems: ROS unobtainable: Yes unobtainable due to mental status PMFSH Past Medical History Medical History Depression Diabetic peripheral neuropathy Fibromyalgia Hypothyroidism Memory change Ovarian cancer At the age of 33, status post hysterectomy. Patient states that half an ovary was left during surgery. She required no further treatment. Pneumonia due to COVID-19 virus (09/2020) Pulmonary emboli Restless leg syndrome Shingles Type 2 diabetes mellitus Hemoglobin A1c was > 14% August 2021 C-peptide 0.63. Surgical History Surgical History History of tonsillectomy (1970) History of total hysterectomy with bilateral salpingo-oophorectomy (BSO) (1983) History of tubal ligation (1983) Family History Family History Grandparent Family history of premature coronary heart disease, Onset Age: 64 Father Family history of respiratory disorder, Onset Age: 87 Family history of cardiovascular disease Patient's father is Family history of Alzheimer's disease Cerebrovascular accident Mother Family history of primary malignant neoplasm of liver, Onset Age: 64 Family history of malignant neoplasm Patient's mother is , Onset Age: 64 Family history of malignant neoplasm of breast in first degree relative Sibling Heart attack Sibling Heart attack Social History Social History (System 04/21/22 @ 07:23 by Raoul Parmar) Social History: The patient is . She lives in her own home in [place], [place]. Her daughter Mary used to live with her but isn't currently however the patient stated that her daughter is going to move back in with her. She has 2 daughters, and designates her daughter Jose Posey, as her surrogate decision maker. She is a lifelong nonsmoker. She drinks perhaps 4-12 alcoholic beverages a week. No drug use. The patient tells me that she does not drink anymore. Code status: Full code. Smoking status: Never smoker Second hand tobacco smoke exposure: No Alcohol intake: former Substance use: never Substance use type: does not use Lack of Transportation: No Lack of Food: Never True Current Housing: I Have Housing Concerned About Future Housing: No Difficulty Paying Gas/Electric Bills: No Difficulty Paying for Meds: No Currently Unemployed: No Education: High School Diploma/GED Difficulty w/ Childcare or Family Care: No Living arrangements: alone Occupation/Education: retired Spiritual care concerns: No Meds Home Medications and Allergies Home Medications Medication Instructions Recorded Confirmed Type apixaban 5 mg tablet (Eliquis) 5 mg PO Q12HR 3 months #180 tabs 03/15/22 04/25/22 Rx hydrocodone 5 mg-acetaminophen 325 1 tablet PO Q8H PRN Pain (Scale 03/25/22 04/25/22 History mg tablet Score 4-6) insulin aspart U-100 100 unit/mL 3 unit subcut TIDWM 03/25/22 04/25/22 History (3 mL) subcutaneous pen (Novolog FlexPen U-100 Insulin aspart) insulin glargine 100 unit/mL (3 25 un
[2022-04-25 13:19] LABS: Glucose Point of Care > 500 mg/dl (65-105)
[2022-04-25] MEDS: SODIUM CHLORIDE 0.9% IV 1,000 ML 150 ML IV CONT (13:53)
[2022-04-25 14:04] LABS: Glucose Point of Care > 500 mg/dl (65-105)
[2022-04-25 14:06] LABS: Glucose 663 mg/dL (65-110)
[2022-04-25 14:17] LABS: Blood Urea Nitrogen 27 mg/dL (7-17); Calcium 10.3 mg/dL (8.4-10.2); Carbon Dioxide < 5 mmol/L (22-30); Chloride 108 mmol/L (98-107); Estimated CRCL calculation 49 ml/min; Estimated Glomerular Filt Rate > 60; Magnesium 2.3 mg/dL (1.6-2.3); Phosphorus 5.8 mg/dL (2.5-4.5); Potassium 4.7 mmol/L (3.4-5.0); Sodium 137 mmol/L (137-145)
[2022-04-25 14:29] LABS: Glucose 668 mg/dL (65-110)
[2022-04-25 15:28] LABS: Glucose Point of Care 487 mg/dl (65-105)
[2022-04-25 16:12] LABS: Hemoglobin A1C > 14.0 % (<5.7)
[2022-04-25 16:37] LABS: Glucose Point of Care 419 mg/dl (65-105)
[2022-04-25] MEDS: INSULIN HUMAN REGULAR (*BKC) 100 UNITS in SODIUM CHLORIDE 0.9% IV 99 ML 17.9 UNITS IV CONT (17:00)
[2022-04-25 17:14] LABS: Appearance Urine Clear (Clear); Bilirubin Urine Negative (Negative); Blood Urine Trace-lysed (Negative); Color Urine Yellow (Yellow); Glucose Urine UA 2+ mg/dL (Negative); Ketones Urine 4+ mg/dL (Negative); Leukocyte Esterase Ur Negative LEU/UL (NEGATIVE); Nitrate Urine Negative (Negative); Protein Urine 1+ mg/dL (Negative); Urobilinogen Urine 0.2 mg/dL (<2.0)
[2022-04-25 17:24] LABS: Bacteria Urine Trace /hpf; Mucus Urine Rare /lpf; RBC Urine 0-2 /hpf (0-2); Squamous Epithelial Cell Urine Rare /hpf (Few); WBC Urine 0-3 /hpf (0-3)
[2022-04-25 17:25] LABS: Add Urine Microscopic? YES
[2022-04-25 18:08] LABS: Anion Gap 18 mmol/L (8-16); Blood Urea Nitrogen 24 mg/dL (7-17); Calcium 10.4 mg/dL (8.4-10.2); Carbon Dioxide 8 mmol/L (22-30); Chloride 116 mmol/L (98-107); Estimated CRCL calculation 56 ml/min; Estimated Glomerular Filt Rate > 60; Glucose 370 mg/dL (65-110); Potassium 4.4 mmol/L (3.4-5.0); Sodium 142 mmol/L (137-145)
[2022-04-25 18:14] LABS: Glucose Point of Care 388 mg/dl (65-105)
[2022-04-25 18:33] LABS: Glucose Point of Care 303 mg/dl (65-105)
[2022-04-25] MEDS: KCL 20 MEQ/D5/0.45% SOD CHL 1,000 ML 150 ML IV CONT (19:33)
[2022-04-25 19:37] LABS: Glucose Point of Care 237 mg/dl (65-105)
[2022-04-25 20:35] LABS: Glucose Point of Care 257 mg/dl (65-105)
[2022-04-25 21:34] LABS: Glucose Point of Care 259 mg/dl (65-105)
[2022-04-25 21:52] LABS: Anion Gap 10 mmol/L (8-16); Blood Urea Nitrogen 22 mg/dL (7-17); Calcium 10.5 mg/dL (8.4-10.2); Carbon Dioxide 13 mmol/L (22-30); Chloride 115 mmol/L (98-107); Estimated CRCL calculation 92 ml/min; Estimated Glomerular Filt Rate > 60; Glucose 184 mg/dL (65-110); Potassium 4.5 mmol/L (3.4-5.0); Sodium 138 mmol/L (137-145)
[2022-04-25] MEDS: INSULIN HUMAN REGULAR (*BKC) 100 UNITS in SODIUM CHLORIDE 0.9% IV 99 ML 10.7 UNITS IV CONT (22:33)
[2022-04-25 22:37] LABS: Glucose Point of Care 167 mg/dl (65-105)
[2022-04-25 23:34] LABS: Glucose Point of Care 143 mg/dl (65-105)
[2022-04-26] VITALS (10 sets, daily range): BP systolic 87–122; BP diastolic 50–72; PULSE 72–105; RESP 13–20; TEMP 36.6–36.7; O2SAT 97–100
[2022-04-26 00:35] LABS: Glucose Point of Care 145 mg/dl (65-105)
[2022-04-26 01:04] LABS: Anion Gap 7 mmol/L (8-16); Blood Urea Nitrogen 20 mg/dL (7-17); Calcium 10.2 mg/dL (8.4-10.2); Carbon Dioxide 18 mmol/L (22-30); Chloride 113 mmol/L (98-107); Estimated CRCL calculation 92 ml/min; Estimated Glomerular Filt Rate > 60; Glucose 128 mg/dL (65-110); Potassium 3.7 mmol/L (3.4-5.0); Sodium 138 mmol/L (137-145)
[2022-04-26] MEDS: KCL 20 MEQ/D5/0.45% SOD CHL 1,000 ML 150 ML IV CONT (01:35)
[2022-04-26 01:39] LABS: Glucose Point of Care 115 mg/dl (65-105)
[2022-04-26 02:39] LABS: Glucose Point of Care 91 mg/dl (65-105)
[2022-04-26 03:36] LABS: Glucose Point of Care 91 mg/dl (65-105)
[2022-04-26 04:37] LABS: Glucose Point of Care 82 mg/dl (65-105)
[2022-04-26 04:49] LABS: Basophils Percent Auto 0.2 % (0.2-1.2); Eosinophils Absolute Auto 0.1 K/mm3 (0-0.3); Eosinophils Percent Auto 0.7 % (0-4.4); Hematocrit 28.6 % (37.0-47.0); Hemoglobin 8.9 g/dL (12.0-15.0); Immature Granulocyte Absolute 0.03 K/mm3 (0.00-0.031); Immature Granulocyte Percent A 0.3 % (0-0.5); Lymphocytes Absolute Auto 1.64 K/mm3 (0.9-3.2); Lymphocytes Percent Auto 18.1 % (18.3-44.2); Mean Corpuscular HGB Conc 31.1 g/dl (32-36); Mean Corpuscular Hemoglobin 29.9 pg (26-34); Mean Platelet Volume 9.5 fl (7.4-10.4); Monocytes Absolute Auto 0.9 K/mm3 (0.1-0.6); Monocytes Percent Auto 9.4 % (2.6-8.5); Neutrophils Absolute Auto 6.4 K/mm3 (1.3-6.7); Neutrophils Percent Auto 71.3 % (45.5-73.1); Platelet Count Result 217 k/mm3 (150-375); Red Blood Count 2.98 M/mm3 (4.2-5.4); Red Cell Distribution Width 14.2 % (11.5-14.5)
[2022-04-26 05:12] LABS: Alanine Aminotransferase 92 U/L (6-35); Albumin Level 3.3 g/dL (3.5-5.1); Alkaline Phosphatase 199 U/L (38-126); Anion Gap 3 mmol/L (8-16); Aspartate Amino Transferase 45 U/L (14-36); Bilirubin,Total 0.3 mg/dL (0.2-1.3); Blood Urea Nitrogen 19 mg/dL (7-17); Calcium 9.9 mg/dL (8.4-10.2); Carbon Dioxide 19 mmol/L (22-30); Chloride 114 mmol/L (98-107); Estimated CRCL calculation 117 ml/min; Estimated Glomerular Filt Rate > 60; Glucose 72 mg/dL (65-110); Magnesium 1.9 mg/dL (1.6-2.3); Phosphorus 1.6 mg/dL (2.5-4.5); Potassium 3.7 mmol/L (3.4-5.0); Sodium 136 mmol/L (137-145)
[2022-04-26 05:40] LABS: Glucose Point of Care 111 mg/dl (65-105)
[2022-04-26 06:35] LABS: Glucose Point of Care 99 mg/dl (65-105)
[2022-04-26 07:33] LABS: Glucose Point of Care 138 mg/dl (65-105)
[2022-04-26] MEDS: INSULIN GLARGINE (*BKC) 100 UNITS/ML 20 UNITS SUB-Q (08:13)
[2022-04-26] MEDS: POTASSIUM PHOS,M-BASIC-D-BASIC 20 MMOL in SODIUM CHLORIDE 0.9% IV 250 ML 64.17 MMOL IVPB (08:29)
[2022-04-26] MEDS: INSULIN ASPART (*BKC) 100 UNITS/ML SUB-Q ×4 (08:31→20:25)
[2022-04-26] MEDS: APIXABAN 5 MG TABLET PO ×2 (08:32→20:26)
[2022-04-26 08:34] LABS: Anion Gap 4 mmol/L (8-16); Blood Urea Nitrogen 17 mg/dL (7-17); Calcium 9.7 mg/dL (8.4-10.2); Carbon Dioxide 18 mmol/L (22-30); Chloride 116 mmol/L (98-107); Estimated CRCL calculation 92 ml/min; Estimated Glomerular Filt Rate > 60; Glucose 142 mg/dL (65-110); Potassium 4.2 mmol/L (3.4-5.0); Sodium 138 mmol/L (137-145)
--- NOTE | 2022-04-26 08:39 | WPDINTPN ---
Progress Note: A&P Assessment and Plan (1) DKA (diabetic ketoacidosis): Qualifiers: Diabetes mellitus complication detail: without coma Diabetes mellitus type: type 1 Qualified Code(s): E10.10 - Type 1 diabetes mellitus with ketoacidosis without coma Code(s): E11.10 - Type 2 diabetes mellitus with ketoacidosis without coma Status: Acute Assessment and Plan: DKA secondary to noncompliance -3 L of IV fluids have been ordered in the ER -she was started on insulin infusion and also given 2 amps of sodium bicarbonate for pH of 6.84 -her anion gap has closed and she is clinically improved denies any symptoms at this time -I will administer Lantus and start her on with meal insulin along with the sliding scale -start diabetic diet -discontinue insulin infusion -patient was recently admitted to [facility] from 04/20/2022 through 04/22/2022 for diabetic ketoacidosis -patient has been noncompliant at home has had multiple admissions for DKA. -hemoglobin A1c is 13.9 on 03/25/2022 (2) Dehydration: Code(s): E86.0 - Dehydration Status: Acute Assessment and Plan: Improved with IV fluids. Will hold further IV fluids if patient tolerates p.o. diet -will continue to monitor (3) Acute kidney failure: Code(s): N17.9 - Acute kidney failure, unspecified Status: Acute Assessment and Plan: Patient normal creatinine is 0.4-0.6 -patient's creatinine is 1.10 this admission Resolved with IV fluids. Creatinine back to baseline -will continue to monitor urine output, renal function and electrolytes (4) Acute hyperkalemia: Code(s): E87.5 - Hyperkalemia Status: Acute Assessment and Plan: Likely related acidosis and has resolved (5) Hyponatremia: Code(s): E87.1 - Hypo-osmolality and hyponatremia Status: Acute Assessment and Plan: Hyponatremia could be related to pseudohyponatremia from severe hyperglycemia -continue to monitor (6) Right leg DVT: Code(s): I82.401 - Acute embolism and thrombosis of unspecified deep veins of right lower extremity Status: Acute Assessment and Plan: Patient on Eliquis at home for right lower extremity DVT -lower extremity venous Dopplers on 04/21/2022: 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 No evidence for DVT in the left leg -will continue Eliquis Plan DVT prophylaxis: Eliquis Stress ulcer prophylaxis: Not indicated Nutrition: Diabetic diet Code Status: Full code Incentive spirometry Transfer out of ICU today Subjective Date/time seen: 04/26/22 08:39 Febrile overnight. Vital signs acceptable She feels better this morning and denies any specific complaints. Feels she is ready to eat breakfast Patient denies fever, chest pain, shortness of breath, cough, nausea vomiting, abdominal pain,, diarrhea, headache or constipation. All other systems were reviewed and were negative Review of Systems Review of Systems: All systems reviewed & are unremarkable except as noted in HPI and below Exam Narrative: General:? Patient is alert awake and in no distress HEENT:? Pupils are equal and reactive, dry oral mucosa Neck:? Supple Respiratory:? Clear to auscultation bilaterally, no wheezing, adequate air entry Cardiac:? S1-S2 is normal, regular rate and rhythm Abdomen:? Soft, nontender, nondistended, hypoactive bowel sounds Extremities:? No edema palpable pedal pulses Neuro:? Patient is AO x3 moves all 4 extremities to commands Skin:? No rash Objective Data Vital Signs Vital Signs: Vital Signs - 24 hr 04/25/22 09:13 04/25/22 11:39 04/25/22 12:16 Temperature 36.4 C Pulse Rate 112 H 105 H 106 H Respiratory Rate 25 H 22 H 22 H Blood Pressure 166/83 H 103/55 L Pulse Oximetry 98 98 100 Oxygen Delivery Room Air Oxygen Flow Rate 2 04/25/22 12:51 04/25/22 14:00 04/25/22 14:00 Temperature Pulse Rate 103 H 113 H 113 H Respiratory Rate 20 20 Bloo
--- NOTE | 2022-04-26 10:43 | PCDIET ---
Nutrition consult for DKA- readmitted from last week. Diet order has been advanced to Diabetic Consistent Carb diet. Oral Intake for breakfast 75% of meal. Agree with diet orders. No further nutritional interventions needed at this time.
[2022-04-26] MEDS: ACETAMINOPHEN 325 MG TABLET 650 MG PO (11:12)
[2022-04-26 12:15] LABS: Glucose Point of Care 179 mg/dl (65-105)
--- NOTE | 2022-04-26 15:45 | PM.IMPN ---
Progress Note: A&P Assessment and Plan (1) Hyponatremia: Code(s): E87.1 - Hypo-osmolality and hyponatremia Status: Acute (2) Noncompliance with medication regimen: Code(s): Z91.14 - Patient's other noncompliance with medication regimen Status: Acute (3) DKA (diabetic ketoacidosis): Code(s): E11.10 - Type 2 diabetes mellitus with ketoacidosis without coma Status: Acute (4) Type 2 diabetes mellitus with hyperglycemia: Code(s): E11.65 - Type 2 diabetes mellitus with hyperglycemia Status: Acute Plan acute DKA ICU admission DKA protocol anion gap closed. Lantus received and IV insulin off A1c at 13.9 Elevated anion gap metabolic acidosis this has resolved now Leukocytosis broad-spectrum antibiotics Acute encephalopathy due to above presented with lethargy and altered mental status. Found to have DKA blood sugar of 864 elevated beta hydroxybutyrate urine ketones is reviewed resuscitated in the ER with IV fluids and started on insulin infusion as per protocol. encephalopathy has resolved Recurrent admission with noncompliance of the medication Type 2 diabetes mellitus status insulin-dependent A1c 13.9 on 03/25/2022 JAMILA creatinine of 1.1 on admission. Normal creatinine 0.4-0.6. Hyponatremia likely pseudo due to severe hyperglycemia. Continue to monitor Hyperkalemia resolved History of DVT / PE on Eliquis at home continued DVT prophylaxis continue Eliquis Code status full code Subjective Date/time seen: 04/26/22 15:45 Interval history: patient more awake and alert. She states she forgot to fill her Lantus prescription. Denies any other complaints. She has moved out of the ICU today. Off drip Review of Systems Review of Systems: All systems reviewed & are unremarkable except as noted in HPI and below Exam Narrative: GENERAL: Elderly, alert and oriented x3 HEAD: Normocephalic, atraumatic. EYES: PERRLA and EOMI. ENT: Nares clear, no rhinorrhea or epistaxis. dry mucous membrane NECK: Supple. No adenopathy or masses. CHEST:? coarse breath sound bilaterally. No respiratory distress. No wheezes, rales or rhonchi HEART: regular rate Regular rhythm. No murmur heard. Normal peripheral pulses. ABDOMEN: Soft, nontender, nondistended, normal active bowel sounds. EXTREMITIES: Normal range of motion. No edema. SKIN: Warm, dry, no rash. NEURO: awake and alert oriented x3 no focal neurological deficit Objective Data Vital Signs Vital Signs: Vital Signs - 24 hr 04/25/22 16:00 04/25/22 16:00 04/25/22 16:17 Temperature Pulse Rate 77 Respiratory Rate Blood Pressure 120/60 Pulse Oximetry 100 Oxygen Delivery Nasal Cannula Oxygen Flow Rate 2 04/25/22 16:00 04/25/22 18:00 04/25/22 18:00 Temperature Pulse Rate 81 97 97 Respiratory Rate 16 16 Blood Pressure 106/57 L 114/64 Pulse Oximetry 100 100 Oxygen Delivery Oxygen Flow Rate 04/25/22 20:00 04/25/22 20:00 04/25/22 20:00 Temperature 98.2 F Pulse Rate 97 88 103 H Respiratory Rate 16 15 Blood Pressure 125/65 Pulse Oximetry 100 100 Oxygen Delivery Nasal Cannula Oxygen Flow Rate 2 04/25/22 22:00 04/25/22 22:00 04/26/22 00:00 Temperature 97.8 F Pulse Rate 93 93 105 H Respiratory Rate 18 13 Blood Pressure 105/42 L 87/50 L Pulse Oximetry 100 100 Oxygen Delivery Oxygen Flow Rate 04/26/22 00:00 04/26/22 00:00 04/26/22 02:00 Temperature Pulse Rate 105 H 96 96 Respiratory Rate 13 15 Blood Pressure 99/60 L Pulse Oximetry 100 99 Oxygen Delivery Nasal Cannula Oxygen Flow Rate 2 04/26/22 02:00 04/26/22 04:00 04/26/22 04:00 Temperature 98 F Pulse Rate 97 76 76 Respiratory Rate 13 13 Blood Pressure 105/54 L Pulse Oximetry 100 100 Oxygen Delivery Nasal Cannula Oxygen Flow Rate 2 04/26/22 04:00 04/26/22 06:00 04/26/22 06:00 Temperature 97.9 F Pulse Rate 76 98 99 Respiratory Rate 15 Blood Pressure 107/57 L Pulse O
[2022-04-26 17:05] LABS: Glucose Point of Care 96 mg/dl (65-105)
[2022-04-26 20:29] LABS: Glucose Point of Care 227 mg/dl (65-105)
[2022-04-27] VITALS (9 sets, daily range): BP systolic 116–148; BP diastolic 66–82; PULSE 62–100; RESP 14–18; TEMP 36.2–36.6; O2SAT 97–100
[2022-04-27] MEDS: ACETAMINOPHEN 325 MG TABLET 650 MG PO ×2 (01:11→07:23)
[2022-04-27 03:31] LABS: Hematocrit 27.9 % (37.0-47.0); Hemoglobin 8.8 g/dL (12.0-15.0); Mean Corpuscular HGB Conc 31.5 g/dl (32-36); Mean Corpuscular Hemoglobin 30.6 pg (26-34); Mean Corpuscular Volume 96.9 fl (80-100); Mean Platelet Volume 9.3 fl (7.4-10.4); Platelet Count Result 186 k/mm3 (150-375); Red Blood Count 2.88 M/mm3 (4.2-5.4); Red Cell Distribution Width 14.6 % (11.5-14.5); White Blood Count 5.4 K/mm3 (4.5-10.0)
[2022-04-27 03:42] LABS: Alanine Aminotransferase 76 U/L (6-35); Albumin Level 3.2 g/dL (3.5-5.1); Alkaline Phosphatase 189 U/L (38-126); Anion Gap 5 mmol/L (8-16); Aspartate Amino Transferase 42 U/L (14-36); Bilirubin,Total 0.4 mg/dL (0.2-1.3); Blood Urea Nitrogen 12 mg/dL (7-17); Calcium 9.4 mg/dL (8.4-10.2); Carbon Dioxide 21 mmol/L (22-30); Chloride 103 mmol/L (98-107); Estimated CRCL calculation 92 ml/min; Estimated Glomerular Filt Rate > 60; Glucose 248 mg/dL (65-110); Magnesium 1.7 mg/dL (1.6-2.3); Potassium 4.1 mmol/L (3.4-5.0); Sodium 129 mmol/L (137-145)
--- NOTE | 2022-04-27 05:36 | PC.NURSE ---
This patient, Karly Leslie, was transferred to [[id number]] on 04/27/22 at 0537. Personal belongings sent with patient. Report given to [SAMMY Rebolledo]. Appropriate documentation sent with patient.
[2022-04-27 08:34] LABS: Glucose Point of Care 156 mg/dl (65-105)
[2022-04-27] MEDS: APIXABAN 5 MG TABLET PO ×2 (09:00→21:15)
[2022-04-27] MEDS: INSULIN ASPART (*BKC) 100 UNITS/ML 6 UNITS SUB-Q ×3 (09:01→17:29)
[2022-04-27] MEDS: INSULIN GLARGINE (*BKC) 100 UNITS/ML 20 UNITS SUB-Q (09:01)
[2022-04-27] MEDS: traMADol HCL (*CRX) 50 MG TABLET PO ×3 (09:13→21:15)
[2022-04-27 11:45] LABS: Glucose Point of Care 109 mg/dl (65-105)
--- NOTE | 2022-04-27 11:59 | PM.IMPN ---
Progress Note: A&P Assessment and Plan (1) DKA (diabetic ketoacidosis): Qualifiers: Diabetes mellitus complication detail: with coma Diabetes mellitus type: type 1 Qualified Code(s): E10.11 - Type 1 diabetes mellitus with ketoacidosis with coma Code(s): E11.10 - Type 2 diabetes mellitus with ketoacidosis without coma Status: Acute (2) Acute kidney injury: Code(s): N17.9 - Acute kidney failure, unspecified Status: Acute (3) Hyponatremia: Code(s): E87.1 - Hypo-osmolality and hyponatremia Status: Acute (4) Noncompliance with medication regimen: Code(s): Z91.14 - Patient's other noncompliance with medication regimen Status: Acute (5) Right leg DVT: Code(s): I82.401 - Acute embolism and thrombosis of unspecified deep veins of right lower extremity Status: Acute Plan 71 years old F with PMH of DM, PE/DVT on Chronic anticoagulation admitted with DKA in setting of non compliance. 1)Diabetic Ketoacidosis: Resolved BG check TID AC and HS c/w lantus 20 units Increase meal time insulin c/w mid dose SS insulin Adjust dose as needed 2)JAMILA+Hyponatremia+Hyperkalemia: JAMILA has resolved Monitor Sodium level Hyperkalemia has resolved Will remove [place] Recheck BMP in AM 3)Acute Encephalopathy: Resolved 4)Anemia: seems to be chronic Will need outpatient work up 5)H/o DVT: c/w Eliquis, pain control 6)Code:Full 7)PT/OT 8)Dispo:pending improvement Time Spent With Patient Time with patient: 25 - 35 minutes Subjective Date/time seen: 04/27/22 11:59 Interval history: c/o right leg pain no acute events overnight Review of Systems Review of Systems: All systems reviewed & are unremarkable except as noted in HPI and below Exam Narrative: GENERAL: Elderly, ? alert and oriented x3 HEAD: Normocephalic, atraumatic. EYES: PERRLA and EOMI. ENT: Nares clear, no rhinorrhea or epistaxis.? dry mucous membrane NECK: Supple. No adenopathy or masses. CHEST:? coarse breath sound bilaterally. No respiratory distress. No wheezes, rales or rhonchi HEART:? ? regular rate? Regular rhythm. No murmur heard. Normal peripheral pulses. ABDOMEN: Soft, nontender, nondistended, normal active bowel sounds. EXTREMITIES: Normal range of motion. No edema. SKIN: Warm, dry, no rash. NEURO: awake and alert oriented x3 no focal neurological deficit Objective Data Vital Signs Vital Signs: Vital Signs - 24 hr 04/26/22 12:00 04/26/22 16:00 04/26/22 16:00 Temperature 98.1 F Pulse Rate 79 75 72 Respiratory Rate 20 Blood Pressure 122/72 Pulse Oximetry 100 Oxygen Delivery 04/26/22 20:00 04/26/22 20:00 04/27/22 00:00 Temperature Pulse Rate 72 101 H 75 Respiratory Rate 20 Blood Pressure Pulse Oximetry 100 Oxygen Delivery Room Air 04/27/22 00:00 04/27/22 04:00 04/27/22 05:45 Temperature 97.9 F 97.2 F L Pulse Rate 76 66 62 Respiratory Rate 14 18 Blood Pressure 148/82 H 138/78 Pulse Oximetry 97 100 Oxygen Delivery 04/27/22 11:39 Temperature Pulse Rate 70 Respiratory Rate Blood Pressure Pulse Oximetry Oxygen Delivery Intake/Output Intake/Output: Intake & Output 04/24/22 04/25/22 04/26/22 04/27/22 23:59 23:59 23:59 23:59 Intake Total 4500 3656 740 Output Total 2200 1650 1250 Balance 2300 2006 -510 Meds/Results Medications: Active Medications Generic Name Dose Route Start Last Admin Trade Name Freq PRN Reason Stop Dose Admin Acetaminophen 650 mg 04/25/22 13:35 04/27/22 07:23 Acetaminophen 325 Mg Tablet PO 650 mg Q6H PRN Administration Mild Pain (1-3) or Fever Apixaban 5 mg 04/25/22 21:00 04/27/22 09:00 Apixaban 5 Mg Tablet PO 5 mg Q12HR DANIEL Administration Dextrose 12.5 gm 04/26/22 07:42 Dextrose 50% 25 Gm/50 Ml Syringe IV PUSH PRN PRN Hypoglycemia Protocol Glucagon 1 mg 04/26/22 07:42 Glucagon For Inj 1 Mg Vial IM PRN PRN Hy
--- NOTE | 2022-04-27 13:54 | PC.NURSE ---
On 04/27/22, the student, [Lacy Farris], provided care and completed [facility] documentation on this patient. I have reviewed the student's documentation and agree with the findings.
[2022-04-27 17:04] LABS: Glucose Point of Care 95 mg/dl (65-105)
[2022-04-27 21:33] LABS: Glucose Point of Care 128 mg/dl (65-105)
[2022-04-28] VITALS (9 sets, daily range): BP systolic 104–134; BP diastolic 60–71; PULSE 57–69; RESP 17–18; TEMP 36.4–36.8; O2SAT 99–100
[2022-04-28 05:50] LABS: Hematocrit 31.6 % (37.0-47.0); Hemoglobin 9.9 g/dL (12.0-15.0); Mean Corpuscular HGB Conc 31.3 g/dl (32-36); Mean Corpuscular Hemoglobin 30.5 pg (26-34); Mean Corpuscular Volume 97.2 fl (80-100); Mean Platelet Volume 9.4 fl (7.4-10.4); Platelet Count Result 196 k/mm3 (150-375); Red Blood Count 3.25 M/mm3 (4.2-5.4); Red Cell Distribution Width 14.6 % (11.5-14.5); White Blood Count 3.5 K/mm3 (4.5-10.0)
[2022-04-28 05:59] LABS: Potassium 4.6 mmol/L (3.4-5.0)
[2022-04-28 06:00] LABS: Alanine Aminotransferase 71 U/L (6-35); Albumin Level 3.4 g/dL (3.5-5.1); Alkaline Phosphatase 175 U/L (38-126); Anion Gap -1 mmol/L (8-16); Aspartate Amino Transferase 43 U/L (14-36); Bilirubin,Total 0.4 mg/dL (0.2-1.3); Blood Urea Nitrogen 12 mg/dL (7-17); Calcium 9.9 mg/dL (8.4-10.2); Carbon Dioxide 29 mmol/L (22-30); Chloride 104 mmol/L (98-107); Estimated CRCL calculation 92 ml/min; Estimated Glomerular Filt Rate > 60; Glucose 149 mg/dL (65-110); Magnesium 1.9 mg/dL (1.6-2.3); Sodium 132 mmol/L (137-145)
[2022-04-28 08:16] LABS: Glucose Point of Care 143 mg/dl (65-105)
[2022-04-28] MEDS: APIXABAN 5 MG TABLET PO ×2 (08:41→20:05)
[2022-04-28] MEDS: INSULIN GLARGINE (*BKC) 100 UNITS/ML 20 UNITS SUB-Q (08:42)
[2022-04-28] MEDS: INSULIN ASPART (*BKC) 100 UNITS/ML 6 UNITS SUB-Q ×3 (08:42→17:14)
[2022-04-28] MEDS: ACETAMINOPHEN 325 MG TABLET 650 MG PO ×2 (11:25→23:39)
[2022-04-28 12:15] LABS: Glucose Point of Care 105 mg/dl (65-105)
[2022-04-28] MEDS: traMADol HCL (*CRX) 50 MG TABLET PO (14:12)
--- NOTE | 2022-04-28 15:28 | PM.IMPN ---
Progress Note: A&P Assessment and Plan (1) DKA (diabetic ketoacidosis): Qualifiers: Diabetes mellitus complication detail: with coma Diabetes mellitus type: type 1 Qualified Code(s): E10.11 - Type 1 diabetes mellitus with ketoacidosis with coma Code(s): E11.10 - Type 2 diabetes mellitus with ketoacidosis without coma Status: Acute (2) Acute kidney injury: Code(s): N17.9 - Acute kidney failure, unspecified Status: Acute (3) Hyponatremia: Code(s): E87.1 - Hypo-osmolality and hyponatremia Status: Acute (4) Noncompliance with medication regimen: Code(s): Z91.14 - Patient's other noncompliance with medication regimen Status: Acute (5) Right leg DVT: Code(s): I82.401 - Acute embolism and thrombosis of unspecified deep veins of right lower extremity Status: Acute Plan 71 years old F with PMH of DM, PE/DVT on Chronic anticoagulation admitted with DKA in setting of non compliance. 1)Diabetic Ketoacidosis: Resolved BG check TID AC and HS c/w lantus 20 units Increase meal time insulin c/w mid dose SS insulin Adjust dose as needed 2)JAMILA+Hyponatremia+Hyperkalemia: JAMILA has resolved Monitor Sodium level Hyperkalemia has resolved remove [place], no urinary retention Recheck BMP in AM 3)Acute Encephalopathy: Resolved 4)Anemia: seems to be chronic Will need outpatient work up 5)H/o DVT: c/w Eliquis, pain control 04/21 shows DVT of right lower extremity 6)Code:Full 7)PT/OT Subjective Date/time seen: 04/28/22 15:28 Interval history: Still has right leg pain and swelling Glucose is better controlled no acute events overnight Exam Narrative: GENERAL: Pleasant, in no acute distress. Well-nourished. - EYES: EOMI. Anicteric. - HENT: Moist mucous membranes. - LUNGS: Clear to auscultation bilaterally, no wheezing, rhonchi, or rales. - CARDIOVASCULAR: Regular rate and rhythm. No murmur. No JVD. - ABDOMEN: Soft, non-tender and non-distended. No palpable masses. - EXTREMITIES: 2+ right lower extremity edema. Peripheral pulses 2+. Non-tender. - NEUROLOGIC: No focal neurological deficits. CN II-XII grossly intact. - PSYCHIATRIC: Awake, Alert and oriented x 3. Appropriate mood and affect. - SKIN: No rashes or lesions. Warm. - LYMPH: No cervical lymphadenopathy. Objective Data Vital Signs Vital Signs: Vital Signs - 24 hr 04/27/22 16:00 04/27/22 21:00 04/27/22 20:00 Temperature 97.6 F Pulse Rate 100 65 65 Respiratory Rate 18 18 Blood Pressure 116/67 Pulse Oximetry 100 100 Oxygen Delivery Room Air 04/27/22 20:00 04/28/22 00:00 04/28/22 04:00 Temperature Pulse Rate 71 63 62 Respiratory Rate Blood Pressure Pulse Oximetry Oxygen Delivery 04/28/22 05:18 04/28/22 08:00 04/28/22 12:00 Temperature 98.3 F Pulse Rate 57 L 57 L 69 Respiratory Rate 17 Blood Pressure 134/71 Pulse Oximetry 100 Oxygen Delivery Intake/Output Intake/Output: Intake & Output 04/25/22 04/26/22 04/27/22 04/28/22 23:59 23:59 23:59 23:59 Intake Total 4500 3656 1220 850 Output Total 2200 1650 1250 200 Balance 2300 2005 650 Meds/Results Medications: Active Medications Generic Name Dose Route Start Last Admin Trade Name Freq PRN Reason Stop Dose Admin Acetaminophen 650 mg 04/25/22 13:35 04/28/22 11:25 Acetaminophen 325 Mg Tablet PO 650 mg Q6H PRN Administration Mild Pain (1-3) or Fever Apixaban 5 mg 04/25/22 21:00 04/28/22 08:41 Apixaban 5 Mg Tablet PO 5 mg Q12HR DANIEL Administration Dextrose 12.5 gm 04/26/22 07:42 Dextrose 50% 25 Gm/50 Ml Syringe IV PUSH PRN PRN Hypoglycemia Protocol Glucagon 1 mg 04/26/22 07:42 Glucagon For Inj 1 Mg Vial IM PRN PRN Hypoglycemia Protocol Glucose 15 gm 04/26/22 07:42 Glucose Oral Gel 15 Gm Of Glucse In 37.5 Gm Tube PO PRN PRN Hypoglycemia Protocol Dextrose 1,000 mls @ 100 ml
[2022-04-28 17:09] LABS: Glucose Point of Care 100 mg/dl (65-105)
[2022-04-28 20:24] LABS: Glucose Point of Care 71 mg/dl (65-105)
[2022-04-29] VITALS: BP 122/66; PULSE 57; PULSE 63; RESP 18; TEMP 36.4; O2SAT 100
[2022-04-29 04:00] VITALS: PULSE 61
[2022-04-29 04:57] LABS: Hematocrit 32.3 % (37.0-47.0); Hemoglobin 9.9 g/dL (12.0-15.0); Mean Corpuscular HGB Conc 30.7 g/dl (32-36); Mean Corpuscular Hemoglobin 30.3 pg (26-34); Mean Corpuscular Volume 98.8 fl (80-100); Mean Platelet Volume 9.4 fl (7.4-10.4); Platelet Count Result 216 k/mm3 (150-375); Red Blood Count 3.27 M/mm3 (4.2-5.4); Red Cell Distribution Width 14.6 % (11.5-14.5); White Blood Count 3.4 K/mm3 (4.5-10.0)
[2022-04-29 05:13] LABS: Alanine Aminotransferase 56 U/L (6-35); Albumin Level 3.6 g/dL (3.5-5.1); Alkaline Phosphatase 156 U/L (38-126); Anion Gap 4 mmol/L (8-16); Aspartate Amino Transferase 33 U/L (14-36); Bilirubin,Total 0.5 mg/dL (0.2-1.3); Blood Urea Nitrogen 13 mg/dL (7-17); Calcium 9.5 mg/dL (8.4-10.2); Carbon Dioxide 26 mmol/L (22-30); Chloride 102 mmol/L (98-107); Estimated CRCL calculation 117 ml/min; Estimated Glomerular Filt Rate > 60; Glucose 175 mg/dL (65-110); Potassium 4.1 mmol/L (3.4-5.0); Sodium 132 mmol/L (137-145)
[2022-04-29 05:31] VITALS: BP 122/74; PULSE 56; RESP 18; TEMP 36.4; O2SAT 99
[2022-04-29] MEDS: traMADol HCL (*CRX) 50 MG TABLET PO (07:42)
--- NOTE | 2022-04-29 07:51 | PM.IMPN ---
Progress Note: A&P Assessment and Plan (1) DKA (diabetic ketoacidosis): Qualifiers: Diabetes mellitus complication detail: with coma Diabetes mellitus type: type 1 Qualified Code(s): E10.11 - Type 1 diabetes mellitus with ketoacidosis with coma Code(s): E11.10 - Type 2 diabetes mellitus with ketoacidosis without coma Status: Acute (2) Acute kidney injury: Code(s): N17.9 - Acute kidney failure, unspecified Status: Acute (3) Hyponatremia: Code(s): E87.1 - Hypo-osmolality and hyponatremia Status: Acute (4) Noncompliance with medication regimen: Code(s): Z91.14 - Patient's other noncompliance with medication regimen Status: Acute (5) Right leg DVT: Code(s): I82.401 - Acute embolism and thrombosis of unspecified deep veins of right lower extremity Status: Acute Plan 71 years old F with PMH of DM, PE/DVT on Chronic anticoagulation admitted with DKA in setting of non compliance. 1)Diabetic Ketoacidosis: Resolved BG check TID AC and HS c/w lantus 20 units Increase meal time insulin 6 units c/w mid dose SS insulin glucose is controlled in the target continue the same doses of insulin at discharge 2)JAMILA+Hyponatremia+Hyperkalemia: JAMILA has resolved Monitor Sodium level Hyperkalemia has resolved remove [place], no urinary retention Recheck BMP in AM, sodium 133, improving recommend patient to see primary care doctor in 1 week for follow-up 3)Acute Encephalopathy: Resolved 4)Anemia: seems to be chronic Will need outpatient work up 5)H/o DVT: c/w Eliquis, pain control 04/21 shows DVT of right lower extremity request patient to refill Eliquis from pharmacy 6)Code:Full 7)PT/OT Subjective Date/time seen: 04/29/22 07:51 Interval history: patient feels better. Glucose is controlled no acute events overnight Review of Systems Review of Systems: All systems reviewed & are unremarkable except as noted in HPI and below ROS unobtainable: Yes unobtainable due to mental status Exam Narrative: GENERAL: Pleasant, in no acute distress. Well-nourished. - EYES: EOMI. Anicteric. - HENT: Moist mucous membranes. - LUNGS: Clear to auscultation bilaterally, no wheezing, rhonchi, or rales. - CARDIOVASCULAR: Regular rate and rhythm. No murmur. No JVD. - ABDOMEN: Soft, non-tender and non-distended. No palpable masses. - EXTREMITIES: 2+ right lower extremity edema. Peripheral pulses 2+. Non-tender. - NEUROLOGIC: No focal neurological deficits. CN II-XII grossly intact. - PSYCHIATRIC: Awake, Alert and oriented x 3. Appropriate mood and affect. - SKIN: No rashes or lesions. Warm. - LYMPH: No cervical lymphadenopathy. Objective Data Vital Signs Vital Signs: Vital Signs - 24 hr 04/28/22 08:00 04/28/22 12:00 04/28/22 15:33 Temperature 98.0 F Pulse Rate 57 L 69 66 Respiratory Rate 18 Blood Pressure 104/61 Pulse Oximetry 100 Oxygen Delivery 04/28/22 16:00 04/28/22 19:56 04/28/22 20:00 Temperature 97.6 F Pulse Rate 67 66 66 Respiratory Rate 18 Blood Pressure 108/60 Pulse Oximetry 99 Oxygen Delivery 04/28/22 20:00 04/29/22 00:00 04/29/22 00:00 Temperature 97.5 F L Pulse Rate 66 57 L 63 Respiratory Rate 18 18 Blood Pressure 122/66 Pulse Oximetry 99 100 Oxygen Delivery Room Air 04/29/22 04:00 04/29/22 05:31 Temperature 97.5 F L Pulse Rate 61 56 L Respiratory Rate 18 Blood Pressure 122/74 Pulse Oximetry 99 Oxygen Delivery Intake/Output Intake/Output: Intake & Output 04/26/22 04/27/22 04/28/22 04/29/22 23:59 23:59 23:59 23:59 Intake Total 3656 1220 1320 290 Output Total 1650 1250 350 400 Balance 2005 970 -110 Meds/Results Medications: Active Medications Generic Name Dose Route Start Last Admin Trade Name Freq PRN Reason Stop Dose Admin Acetaminophen 650 mg 04/25/22 13:35 04/28/22 23:39 Acetaminophen 325 Mg Tablet PO 650 mg Q6H PRN Administrat
[2022-04-29 07:59] LABS: Glucose Point of Care 157 mg/dl (65-105)
[2022-04-29 08:00] VITALS: PULSE 63
--- NOTE | 2022-04-29 08:22 | PM.DS ---
DS: Admitting Diagnosis Discharge Date today Admitting Diagnosis DKA, acute encephalopathy DS: Summary Hospital Course Reason for hospitalization: DKA Hospital Course: This is a 71-year-old diabetic patient who has had multiple admissions for DKA.? She also has a history of having pulmonary embolism, DVT and is on chronic anticoagulation.? The patient is not compliant with monitoring her blood glucoses will is giving herself injections.? The patient came to the emergency room department today for evaluation of altered mental status.? Her neighbor found her acting abnormally today.? The patient was confused when she was initially brought in and she thought that she was in [facility] in the year was 2002.? The patient is now more awake and answering questions without difficulty.? The patient continues to live home alone and continues to be noncompliant with her insulin.? Her white count was noted to be 21,000. PH was 7.009, CO2 was 14.8, PO2 129.7 and 5 bicarb 3.6.? Initially her sodium was 129 potassium was 6.3.? Repeat chemistry sodium was 137 and potassium was 7 a 5.1.? Her anion gap was found to be 36.? Creatinine initially 1.7 and repeat was 1.6.? She typically has a normal baseline level.? Initially a blood sugar was 829 and is now down to 238.? Lactic was 3.3, 4.8 and now 1.8.? Her beta hydroxybutyrate acetoacetate was 16.5.? The patient is negative for influenza a B COVID and RSV.? The patient was given IV fluids x3 L of normal saline, Zofran, IV insulin, sodium bicarb, IV fluids, cefepime, and vancomycin.? CT of the brain was read as no acute intracranial abnormality.? Chest x-ray was read as clear lungs.? Calcified right paratracheal lymph node.? The patientwas admitted to inpatient ICU on the date of service of 04/20/2022. during the hospitalization, patient received it insulin drip, and the transition to basal insulin, short-acting lipro before each meal plus the lispro sliding scales. glucose is controlled in the target, mental status is clear, oriented x3. patient will be discharged home today with the same dose of insulin during hospitalization, review Eliquis p.o. for DVT. Discussed with the patient to complete blood thinner Eliquis of total 3 months treatment. Time Spent with Patient Time attestation: Total time spent providing and/or coordinating discharge services: DS: Data Data Completed and Pending Labs on day of discharge: Labs from last 24 hours 04/29/22 04/29/22 04/29/22 07:54 04:43 04:43 WBC 3.4 L RBC 3.27 L Hgb 9.9 L Hct 32.3 L MCV 98.8 MCH 30.3 MCHC 30.7 L RDW 14.6 H Plt Count 216 MPV 9.4 Sodium 132 L Potassium 4.1 Chloride 102 Carbon Dioxide 26 Anion Gap 4 L BUN 13 Creatinine 0.30 L Estim Creat Clear Calc 117 Estimated GFR > 60 Glucose 175 H POC Capillary Glucose 157 H Calcium 9.5 Magnesium 2.0 Total Bilirubin 0.5 AST 33 ALT 56 H Alkaline Phosphatase 156 H Total Protein 6.0 L Albumin 3.6 04/28/22 04/28/22 04/28/22 20:04 17:02 12:11 WBC RBC Hgb Hct MCV MCH MCHC RDW Plt Count MPV Sodium Potassium Chloride Carbon Dioxide Anion Gap BUN Creatinine Estim Creat Clear Calc Estimated GFR Glucose POC Capillary Glucose 71 100 105 Calcium Magnesium Total Bilirubin AST ALT Alkaline Phosphatase Total Protein Albumin Preliminary micro results at discharge 04/25/22 13:36 Blood Culture - Preliminary Blood 04/25/22 13:35 Blood Culture - Preliminary Blood Discharge Plan Discharge Attending physician on discharge: Castro Olivera Consulting providers: Martha Winslow ; Ava Iraheta Discharging Clinician: Castro Olivera Patient Disposition: Home Health Service Activity: as tolerated Diet: diabetic Discharge Instructions: Per Care Coordination: [facility]
[2022-04-29] MEDS: INSULIN GLARGINE (*BKC) 100 UNITS/ML 20 UNITS SUB-Q (08:48)
[2022-04-29] MEDS: APIXABAN 5 MG TABLET PO (08:48)
[2022-04-29] MEDS: INSULIN ASPART (*BKC) 100 UNITS/ML 6 UNITS SUB-Q (08:49)
[2022-04-29 11:59] LABS: Glucose Point of Care 81 mg/dl (65-105)
== END 2022-04-29 13:42 | disposition home health service (06) | DRG 638 ==
LOC: ANHED 11:52 → ANHICU 12:51 → ANH2MED 04-27 05:38
PROVIDERS: Internal Medicine; Admitting Provider Internal Medicine; Emergency Provider Physician Assistant; PCP Family Medicine; Visit Provider Hospitalist
DX: E10.11 Type 1 diabetes mellitus with ketoacidosis with coma (principal); E87.1 Hypo-osmolality and hyponatremia; N17.9 Acute kidney failure, unspecified; I82.411 Acute embolism and thrombosis of right femoral vein; G93.49 Other encephalopathy; E10.42 Type 1 diabetes mellitus with diabetic polyneuropathy; E03.9 Hypothyroidism, unspecified; Z20.822 Contact with and (suspected) exposure to COVID-19; D64.9 Anemia, unspecified; M79.7 Fibromyalgia; E86.0 Dehydration; G25.81 Restless legs syndrome; E87.5 Hyperkalemia; Z91.14 Patient's other noncompliance with medication regimen; Z85.43 Personal history of malignant neoplasm of ovary; Z86.16 Personal history of COVID-19; Z86.711 Personal history of pulmonary embolism; Z90.710 Acquired absence of both cervix and uterus; Z90.722 Acquired absence of ovaries, bilateral; Z79.01 Long term (current) use of anticoagulants
CPT/HCPCS: 36415; 36600; 70450; 71045; 80048; 80053; 81001; 82010; 82375; 82805; 82947; 82948; 83036; 83050; 83605; 83690; 83735; 84100; 85025; 85027; 87040; 87636; 87637; 93005; 96361; 96365; 96366; 96367; 96375; 96376; 97161; 97165; 97530; 97535; 99285; A9270; G0378; J0692; J1815; J3370; J3480; J7030; J7050

== ENCOUNTER 2022-05-05 19:56 | Emergency (ER) | payer MEDICARE, OTHER, SELFPAY ==
[2022-05-05] VITALS (21 sets, daily range): BP systolic 100–128; BP diastolic 47–93; PULSE 81–120; RESP 19–24; TEMP 36.8; O2SAT 98–100
--- NOTE | ~2022-05-05 | XR_ITS ---
EXAMINATION: XR chest 1V portable DATE: 05/05/2022 21:20 INDICATION: Hyperglycemia. Midsternal chest pain. TECHNIQUE: frontal view of the chest was obtained. COMPARISON: Chest radiograph dated 04/25/2022 FINDINGS: Skinfolds project over the lateral right lung. Calcified nodules in the right midlung zone and calcif ied right hilar and mediastinal lymph nodes consistent with old granulomatous disease. No other airsp obdulia opacities, pulmonary edema, pleural effusion or pneumothorax. Heart size is normal. Tortuous thor acic aorta. IMPRESSION: 1. No acute cardiopulmonary disease. Reviewed, dictated and finalized at location A. GER TRANSPLANT
--- NOTE | ~2022-05-05 | CT_ITS ---
EXAMINATION: CT abdomen pelvis wo con DATE: 05/05/2022 21:49 INDICATION: Epigastric abdominal pain with nausea TECHNIQUE: Computed tomography (CT) of the abdomen and pelvis was performed without intravenous contr ast. Automated exposure control and iterative reconstruction technique were employed. The dose-length product was 225.85 mGy-cm. COMPARISON: None FINDINGS: Mild dependent atelectasis in the bilateral lower lobes. Borderline heart size. No pericardial or ple ural effusion. Small sliding-type hiatal hernia. A few splenic calcific lesions consistent with old g ranulomatous disease. Liver, gallbladder, pancreas and bilateral adrenal glands are normal. Kidneys a nd ureters are normal with no urolithiasis, hydroureteronephrosis or perinephric/ureteral stranding. Bowels including the appendix are normal. Bladder is normal. The uterus is not identified and has lik reynaldo been surgically resected. No free intraperitoneal gas or fluid. No pathologically enlarged abdomi nal or pelvic lymphadenopathy. Mild upper thoracic levocurvature with moderate spondylosis and modera te thoracolumbar spondylosis. Osteitis pubis. IMPRESSION: 1. No acute intra-abdominal/pelvic process. 2. Small sliding-type hiatal hernia. 3. Borderline heart size. Reviewed, dictated and finalized at location A. 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
--- NOTE | 2022-05-05 20:00 | ECG_ITS ---
Measurements Intervals [place] Rate: 83 P: 76 VA: 173 QRS: 49 QRSD: 82 T: 39 QT: 339 QTc: 399 Interpretive Statements SINUS RHYTHM LEFT ATRIAL ENLARGEMENT BORDERLINE ST ABNORMALITY- ANTEROLATERAL LEADS BASELINE ARTIFACT- I, II, III, AVL, AVF BORDERLINE ECG COMPARED TO ECG 04/25/2022 09:27:27 SINUS RHYTHM NOW PRESENT Electronically Signed On 05-06-2022 10:20:14 MANAGER CONTENT by Unruly Panchal D.O.
[2022-05-05 20:12] LABS: Glucose Point of Care > 450 mg/dl (65-105)
[2022-05-05] MEDS: SODIUM CHLORIDE 0.9% IV 1,000 ML 999 ML IV CONT ×3 (20:30→21:13)
[2022-05-05] MEDS: ONDANSETRON INJ 4 MG/2 ML VIAL IV PUSH (20:31)
[2022-05-05 20:37] LABS: Basophils Absolute Auto 0.05 K/mm3 (0.00-0.10); Basophils Percent Auto 0.4 % (0.0-1.0); Hematocrit 38.6 % (35.0-42.0); Hemoglobin 11.1 g/dL (11.7-13.8); Immature Granulocyte Absolute 0.05 K/mm3 (0.00-0.00); Immature Granulocyte Percent A 0.4 % (0.0-0.0); Lymphocytes Absolute Auto 0.84 K/mm3 (1.10-4.50); Lymphocytes Percent Auto 6.7 % (18.0-42.0); Mean Corpuscular HGB Conc 28.8 g/dL (32.0-36.0); Mean Corpuscular Hemoglobin 30.6 pg (27.0-31.0); Mean Corpuscular Volume 106.3 fL (78.0-102.0); Mean Platelet Volume 9.4 fl (9.2-11.8); Monocytes Absolute Auto 0.99 K/mm3 (0.10-0.90); Monocytes Percent Auto 7.9 % (2.0-11.0); Neutrophils Absolute Auto 10.7 K/mm3 (1.7-7.2); Neutrophils Percent Auto 84.6 % (50.0-70.0); Platelet Count Result 643 K/mm3 (150-420); Red Blood Count 3.63 M/mm3 (4.20-5.40); Red Cell Distribution Width 14.8 % (11.6-14.4); White Blood Count 12.6 K/mm3 (4.8-10.8)
[2022-05-05 20:44] LABS: D Dimer 0.35 mg/L (0.19-0.50); Partial Thromboplastin Time 32.5 SEC (23.90-30.70); Prothrombin Time 10.9 Seconds (9.50-12.10)
[2022-05-05 20:51] LABS: Lactic Acid Reflex 2.4 mmol/L (0.4-2.0)
[2022-05-05 20:54] LABS: Alanine Aminotransferase 77 U/L (14-59); Albumin Level 4.4 g/dL (3.4-5.0); Alkaline Phosphatase 234 U/L (46-116); Anion Gap 33 mmol/L (8-16); Aspartate Amino Transferase 33 U/L (15-37); Bilirubin,Total 0.6 mg/dL (0.00-1.00); Blood Urea Nitrogen 53 mg/dL (7-18); Calcium 8.3 mg/dL (8.5-10.1); Carbon Dioxide 9 mmol/L (21-32); Chloride 82 mmol/L (98-108); Estimated Glomerular Filt Rate 30; Magnesium 2.5 mg/dL (1.8-2.4); NT Pro B Type Natriuretic Pept 601 pg/mL (0-125); Sodium 124 mmol/L (136-145); Total Protein 7.9 g/dL (6.4-8.2); Troponin I 16.2 ng/L (0.00-60.4)
[2022-05-05 20:57] LABS: Base Excess ABG -22.4 mmol/L (0-2); HCO3 ABG 6.9 mmol/L (23-29); Oxygen Content ABG 13.2 %vol (16.0-22.0); Oxygen Saturation ABG 80.7 % (95-97); PCO2 ABG 26.3 mmHg (35-45); PO2 ABG 62.1 mmHg (75-85); Total Hemoglobin 11.7 g/dL (12.0-18.0); pH ABG 7.04 (7.35-7.45)
[2022-05-05 21:11] LABS: CRP < 0.5 mg/dL (0.0-0.9); Glucose > 800 mg/dL (70-99); Osmolality Calculated 311 mOsm/kg (285-295); Phosphorus > 8.0 mg/dL (2.6-4.7); Potassium 7.5 mmol/L (3.5-5.1)
[2022-05-05 21:12] LABS: Device ROOM AIR; Modified Allen's Test Pass; Site Drawn LEFT RADIAL
[2022-05-05] MEDS: MORPHINE SULFATE (*CRX) 4 MG/ML INJ IM (21:13)
--- NOTE | 2022-05-05 21:29 | ED.GENADULT ---
HPI - General Adult General Chief complaint: Chest Pain Stated complaint: ambulance Time Seen by Provider: 05/05/22 19:58 Source: patient and EMS Mode of arrival: ambulatory Limitations: no limitations History of Present Illness HPI narrative: this is a 71-year-old female with a history of diabetes insulin insulin dependent also history of pulmonary embolism currently on Eliquis, was recently discharged from [facility] with DKA, the patient is noncompliant with her medical regimen and has been having weakness and has been bed not eating and not taking her insulin properly. Patient today call the EMS and was brought to the emergency department with a blood sugar that was reading greater than 500. She was complaining of abdominal pain with weakness with no fever chills her vital signs were stable. There is no dysuria no flank pain does have some nausea with no episodes of vomiting no diarrhea constipation she was complaining of chest discomfort and abdominal discomfort with no shortness of breath. Onset (ago): day(s) Related Data Home Medications Medication Instructions Recorded Confirmed hydrocodone 5 mg-acetaminophen 325 1 tablet PO Q8H PRN Pain (Scale 03/25/22 05/05/22 mg tablet Score 4-6) acetaminophen 325 mg tablet (Mapap 650 mg PO Q4H PRN Pain (Scale 04/20/22 05/05/22 (acetaminophen)) Score 1-3) Allergies Allergy/AdvReac Type Severity Reaction Status Date / Time banana Allergy Severe SEVERE Verified 05/05/22 07:43 HIVES aspirin AdvReac Intermediate Nausea and Verified 05/05/22 07:43 Vomiting fluoxetine [From Prozac] AdvReac Hallucinati Verified 05/05/22 07:43 ng Review of Systems Review of Systems: All systems reviewed & are unremarkable except as noted in HPI and below PMFSH Past Medical History Medical History Depression Diabetic peripheral neuropathy Fibromyalgia Hypothyroidism Memory change Ovarian cancer At the age of 33, status post hysterectomy. Patient states that half an ovary was left during surgery. She required no further treatment. Pneumonia due to COVID-19 virus (09/2020) Pulmonary emboli Restless leg syndrome Shingles Type 2 diabetes mellitus Hemoglobin A1c was > 14% August 2021 C-peptide 0.63. Surgical History Surgical History History of tonsillectomy (1970) History of total hysterectomy with bilateral salpingo-oophorectomy (BSO) (1983) History of tubal ligation (1983) Family History Family History Grandparent Family history of premature coronary heart disease, Onset Age: 64 Father Family history of respiratory disorder, Onset Age: 87 Family history of cardiovascular disease Patient's father is Family history of Alzheimer's disease Cerebrovascular accident Mother Family history of primary malignant neoplasm of liver, Onset Age: 64 Family history of malignant neoplasm Patient's mother is , Onset Age: 64 Family history of malignant neoplasm of breast in first degree relative Sibling Heart attack Sibling Heart attack Social History Social History Social History: The patient is . She lives in her own home in [place], [place]. Her daughter Mary used to live with her but isn't currently however the patient stated that her daughter is going to move back in with her. She has 2 daughters, and designates her daughter Jose Posey, as her surrogate decision maker. She is a lifelong nonsmoker. She drinks perhaps 4-12 alcoholic beverages a week. No drug use. The patient tells me that she does not drink anymore. Code status: Full code. Smoking status: Never smoker Second hand tobacco smoke exposure: No Alcohol intake: former Substance use: never Substance use type: does not
[2022-05-05 21:38] LABS: Influenza A QL RT-PCR Negative (Negative); Influenza B QL RT-PCR Negative (Negative); RSV RNA, RT-PCR Negative (Negative); SARS-CoV-2 RNA PCR Negative (Negative)
[2022-05-05] MEDS: SODIUM BICARBONATE 8.4% 50 MEQ/50 ML SYRINGE IV PUSH (21:43)
[2022-05-05] MEDS: INSULIN REG 100 UNITS/100 ML 100 UNITS/100 ML BAG 14.8 UNITS IV CONT (21:43)
[2022-05-05 22:46] LABS: Reflex Lactic Acid Yes or No Add Lactic
[2022-05-05 23:08] LABS: Alanine Aminotransferase 76 U/L (14-59); Albumin Level 4.1 g/dL (3.4-5.0); Alkaline Phosphatase 227 U/L (46-116); Anion Gap 33 mmol/L (8-16); Aspartate Amino Transferase 31 U/L (15-37); Bilirubin,Total 0.5 mg/dL (0.00-1.00); Blood Urea Nitrogen 48 mg/dL (7-18); Calcium 7.2 mg/dL (8.5-10.1); Carbon Dioxide 8 mmol/L (21-32); Chloride 90 mmol/L (98-108); Estimated Glomerular Filt Rate 32; Potassium 6.2 mmol/L (3.5-5.1); Sodium 131 mmol/L (136-145); Total Protein 7.6 g/dL (6.4-8.2)
[2022-05-05 23:10] LABS: Lactic Acid 3.1 mmol/L (0.4-2.0)
[2022-05-05 23:12] LABS: Glucose > 800 mg/dL (70-99); Osmolality Calculated 324 mOsm/kg (285-295)
== END 2022-05-05 23:29 | disposition short-term general hospital (02) ==
PROVIDERS: Emergency Provider Emergency Medicine
DX: E11.10 Type 2 diabetes mellitus with ketoacidosis without coma (principal); E87.5 Hyperkalemia; E03.9 Hypothyroidism, unspecified; Z79.01 Long term (current) use of anticoagulants; Z91.14 Patient's other noncompliance with medication regimen; Z79.891 Long term (current) use of opiate analgesic; Z85.43 Personal history of malignant neoplasm of ovary; Z86.718 Personal history of other venous thrombosis and embolism; Z20.822 Contact with and (suspected) exposure to COVID-19; Z79.4 Long term (current) use of insulin
CPT/HCPCS: 36415; 36600; 71045; 74176; 80053; 82805; 82948; 83605; 83735; 83880; 84100; 84484; 85025; 85055; 85380; 85610; 85730; 86140; 87637; 93005; 96361; 96365; 96366; 96372; 96375; 99285; J1815; J2270; J2405; J7030

== ENCOUNTER 2022-05-06 00:05 | Observation (INO) | payer MEDICARE, OTHER, SELFPAY ==
[2022-05-06] VITALS (14 sets, daily range): BP systolic 83–114; BP diastolic 39–70; PULSE 58–85; RESP 14–20; TEMP 36.5–37.1; O2SAT 97–100; BMI 23.6
[2022-05-06 00:15] LABS: Glucose Point of Care > 500 mg/dl (65-105)
--- NOTE | 2022-05-06 00:54 | PM.IMHP ---
H&P: HPI History of Present Illness Date/Time: 05/06/22 00:54 Chief Complaint: Generalized weakness Narrative: This is a 71-year-old female with past medical history significant for insulin-dependent diabetes mellitus, DVT, on anticoagulation. Patient comes as a transfer from outside hospital due to generalized weakness upon arrival to emergency room patient was found to have a blood sugar above 800, hemoglobin A1c is 13.7, patient denies any fevers, rigors, chills, cough, sputum production, nausea or vomiting but has epigastric pain, diffuse abdominal tenderness. Patient is currently on DKA protocol in the intensive care unit. Review of Systems Review of Systems: Generalized weakness Constitutional: Constitutional: Denies chills, Denies fever(s), Reports lethargy and Reports weakness Eyes: Eyes: Denies change in vision ENT: Denies dysphagia and Denies odynophagia Cardiovascular: Cardiovascular: Denies chest pain, Denies irregular heart rhythm, Denies leg edema and Denies palpitations Respiratory: Respiratory: Denies chest congestion, Denies cough, Denies excessive phlegm production, Denies pain on inspiration and Denies dyspnea on exertion Gastrointestinal: Gastrointestinal: Reports abdominal pain, Denies dyspepsia, Denies diarrhea, Denies loose stools, Denies nausea and Denies vomiting Musculoskeletal: Musculoskeletal: Reports muscle weakness Integumentary/Breasts: Skin/Breast: Denies rash Neurologic: Denies focal weakness and Denies Sensory deficit (Neuro) Psychiatric: Psychiatric: Reports no additional psychiatric complaints and Reports as per HPI Endocrine: Endocrine: Reports polydipsia Hematologic/Lymphatic: Hematologic/Lymphatic: Reports no additional hematologic/lymphatic complaints and Reports as per HPI Allergic/Immunologic: Allergic/Immunologic: Reports no additional allergic/immunologic complaints and Reports as per HPI [facility]LY [facility] Past Medical History Medical History Depression Diabetic peripheral neuropathy Fibromyalgia Hypothyroidism Memory change Ovarian cancer At the age of 33, status post hysterectomy. Patient states that half an ovary was left during surgery. She required no further treatment. Pneumonia due to COVID-19 virus (09/2020) Pulmonary emboli Restless leg syndrome Shingles Type 2 diabetes mellitus Hemoglobin A1c was > 14% August 2021 C-peptide 0.63. Surgical History Surgical History History of tonsillectomy (1970) History of total hysterectomy with bilateral salpingo-oophorectomy (BSO) (1983) History of tubal ligation (1983) Family History Family History Grandparent Family history of premature coronary heart disease, Onset Age: 64 Father Family history of respiratory disorder, Onset Age: 87 Family history of cardiovascular disease Patient's father is Family history of Alzheimer's disease Cerebrovascular accident Mother Family history of primary malignant neoplasm of liver, Onset Age: 64 Family history of malignant neoplasm Patient's mother is , Onset Age: 64 Family history of malignant neoplasm of breast in first degree relative Sibling Heart attack Sibling Heart attack Social History Social History Social History: The patient is . She lives in her own home in [place], [place]. Her daughter Mary used to live with her but isn't currently however the patient stated that her daughter is going to move back in with her. She has 2 daughters, and designates her daughter Jose Posey, as her surrogate decision maker. She is a lifelong nonsmoker. She drinks perhaps 4-12 alcoholic beverages a week. No drug use. The patient tells me that she does not drink anymore. Code status: Full code. Smoking status:
[2022-05-06] MEDS: SODIUM CHLORIDE 0.9% IV 1,000 ML 150 ML IV CONT (01:22)
[2022-05-06 01:25] LABS: Glucose Point of Care > 500 mg/dl (65-105)
[2022-05-06 01:35] LABS: Anion Gap 30 mmol/L (8-16); Blood Urea Nitrogen 42 mg/dL (7-17); Carbon Dioxide 8 mmol/L (22-30); Chloride 96 mmol/L (98-107); Estimated CRCL calculation 33 ml/min; Estimated Glomerular Filt Rate 55; Glucose 621 mg/dL (65-110); Magnesium 2.4 mg/dL (1.6-2.3); Phosphorus 5.8 mg/dL (2.5-4.5); Potassium 5.3 mmol/L (3.4-5.0); Sodium 134 mmol/L (137-145)
[2022-05-06 02:07] LABS: Hemoglobin A1C 13.7 % (<5.7)
[2022-05-06 02:24] LABS: Glucose Point of Care 467 mg/dl (65-105)
[2022-05-06] MEDS: INSULIN HUMAN REGULAR (*BKC) 100 UNITS in SODIUM CHLORIDE 0.9% IV 99 ML 12.2 UNITS IV CONT (02:32)
--- NOTE | 2022-05-06 03:30 | PC.NURSE ---
Pt arrived from [facility] on insulin gtt infusing at 14 units/hr. New order entered for insulin gtt. Pt's blood sugar 563 at 0115. Adjusted [facility] insulin gtt to 10.1, using multiplier of 0.02. [facility] pharmacy provided insulin gtt at 0232, at which time, documentation of insulin gtt was entered on the APR.
[2022-05-06 03:36] LABS: Glucose Point of Care 370 mg/dl (65-105)
[2022-05-06 04:33] LABS: Glucose Point of Care 250 mg/dl (65-105)
[2022-05-06 04:47] LABS: Anion Gap 10 mmol/L (8-16); Blood Urea Nitrogen 43 mg/dL (7-17); Calcium 9.9 mg/dL (8.4-10.2); Carbon Dioxide 24 mmol/L (22-30); Chloride 103 mmol/L (98-107); Estimated CRCL calculation 41 ml/min; Estimated Glomerular Filt Rate > 60; Glucose 260 mg/dL (65-110); Potassium 4.2 mmol/L (3.4-5.0); Sodium 137 mmol/L (137-145)
[2022-05-06] MEDS: KCL 20 MEQ/D5/0.45% SOD CHL 1,000 ML 150 ML IV CONT (05:58)
[2022-05-06 06:00] LABS: Glucose Point of Care 165 mg/dl (65-105)
[2022-05-06 06:49] LABS: Glucose Point of Care 137 mg/dl (65-105)
[2022-05-06 07:47] LABS: Glucose Point of Care 119 mg/dl (65-105)
[2022-05-06 08:55] LABS: Glucose Point of Care 103 mg/dl (65-105)
--- NOTE | 2022-05-06 09:03 | WPDCNINT ---
Assessment and Plan Assessment and plan (1) DKA (diabetic ketoacidosis): Qualifiers: Diabetes mellitus complication detail: without coma Diabetes mellitus type: type 1 Qualified Code(s): E10.10 - Type 1 diabetes mellitus with ketoacidosis without coma Code(s): E11.10 - Type 2 diabetes mellitus with ketoacidosis without coma Status: Acute Assessment and Plan: Due to insulin noncompliance. The importance of compliance was again stressed with the patient. Continue DKA protocol with IVF, IV insulin, serial labs. (2) Dehydration: Code(s): E86.0 - Dehydration Status: Acute Assessment and Plan: Hypovolemia and metabolic acidosis likely related to DKA -will continue to monitor (3) Acute kidney failure: Code(s): N17.9 - Acute kidney failure, unspecified Status: Acute Assessment and Plan: - due to hypovolemia, rehydrate and follow - will continue to monitor urine output, renal function and electrolytes (4) Acute hyperkalemia: Code(s): E87.5 - Hyperkalemia Status: Acute Assessment and Plan: Likely related to acidosis, currently on insulin infusion -continue to monitor (5) Hyponatremia: Code(s): E87.1 - Hypo-osmolality and hyponatremia Status: Acute Assessment and Plan: Hyponatremia could be related to pseudohyponatremia from severe hyperglycemia -continue to monitor (6) Right leg DVT: Code(s): I82.401 - Acute embolism and thrombosis of unspecified deep veins of right lower extremity Status: Acute Assessment and Plan: Patient on Eliquis at home for right lower extremity DVT -lower extremity venous Dopplers on 04/21/2022: 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 No evidence for DVT in the left leg -will continue Eliquis Plan DVT prophylaxis: Eliquis Stress ulcer prophylaxis: Not indicated Nutrition: NPO for now, start diabetic diet once AG closed Code Status: Full code Critical Care Time Spent: 50 minutes Due to a high probability of clinically significant, life threatening deterioration, the patient required my highest level of preparedness to intervene emergently and I personally spent this critical care time directly and personally managing the patient. This critical care time included obtaining a history; examining the patient; pulse oximetry; ordering and review of studies; arranging urgent treatment with development of a management plan; evaluation of patient's response to treatment; frequent reassessment; and discussions with other providers. It was exclusive of separately billable procedures and treating other patients and teaching time. Please see Assessment and Plan section and the rest of the note for further information on patient assessment and treatment. [employer] Consult Note Consult date: 05/06/22 Reason for consult: DKA HPI: Karly Leslie is a 71 year old female with a history of IDDM, DVT on Eliquis who presented here as a transfer from [facility] due to DKA. She has a history on noncompliance with insulin and she admits to this currently as well. She was found to have glucose >500 with acidosis in the ED, and was transferred here for further management. Pt feels better currently and only c/o feeling hungry. She denies other symptoms. She denies financial difficulty with getting her insulin or any other barriers besides forgetfulness. Pt has multiple recent admissions for DKA. Review of Systems Review of Systems: As per HPI. [facility] Past Medical History Medical History Depression Diabetic peripheral neuropathy Fibromyalgia Hypothyroidism Memory change Ovarian cancer At the age of 33, status post hysterectomy. Patient states that half an ovary was left during surgery. She required no further treatment. Pneumonia due to COVID-19 virus (09/2020) Pulmonary emboli Restless leg syndrome Elida
[2022-05-06 09:46] LABS: Glucose Point of Care 98 mg/dl (65-105)
[2022-05-06] MEDS: INSULIN HUMAN NPH (*BKC) 100 UNITS/ML 10 UNITS SUB-Q (09:49)
[2022-05-06] MEDS: APIXABAN 5 MG TABLET PO ×2 (09:50→20:50)
[2022-05-06 10:59] LABS: Glucose Point of Care 118 mg/dl (65-105)
[2022-05-06] MEDS: ACETAMINOPHEN 325 MG TABLET 650 MG PO (11:50)
[2022-05-06 11:54] LABS: Glucose Point of Care 169 mg/dl (65-105)
--- NOTE | 2022-05-06 12:21 | PCDIET ---
Physician consult for DKA. Multiple admissions with DKA. Spoke with patient today regarding oral intake, 100% of DBCC for breakfast. No weight changes reported. Agree with diet orders. No further nutritional needs.
[2022-05-06 13:27] LABS: Glucose Point of Care 162 mg/dl (65-105)
[2022-05-06 16:51] LABS: Glucose Point of Care 307 mg/dl (65-105)
[2022-05-06 17:04] LABS: Anion Gap 10 mmol/L (8-16); Blood Urea Nitrogen 34 mg/dL (7-17); Calcium 9.2 mg/dL (8.4-10.2); Carbon Dioxide 20 mmol/L (22-30); Chloride 97 mmol/L (98-107); Estimated CRCL calculation 46 ml/min; Estimated Glomerular Filt Rate > 60; Glucose 282 mg/dL (65-110); Potassium 5.5 mmol/L (3.4-5.0); Sodium 127 mmol/L (137-145)
[2022-05-06] MEDS: INSULIN ASPART (*BKC) 100 UNITS/ML SUB-Q (17:06)
[2022-05-06] MEDS: INSULIN GLARGINE (*BKC) 100 UNITS/ML 20 UNITS SUB-Q (17:07)
--- NOTE | 2022-05-06 18:51 | PC.NURSE ---
Report given to SAMMY Espinoza with [address] [place] [address]. Patient to go to room 256.
--- NOTE | 2022-05-06 19:10 | PC.NURSE ---
Received from ICU/ via wheelchair.
[2022-05-06 20:35] LABS: Glucose Point of Care 343 mg/dl (65-105)
[2022-05-07] MEDS: ACETAMINOPHEN 325 MG TABLET 650 MG PO ×2 (05:41→09:50)
[2022-05-07 06:00] VITALS: BP 122/63; PULSE 58; RESP 20; TEMP 36.6; O2SAT 100
[2022-05-07 08:00] VITALS: BP 118/60; PULSE 59; RESP 20; TEMP 36.5; O2SAT 100
[2022-05-07 08:52] LABS: Glucose Point of Care 306 mg/dl (65-105)
[2022-05-07] MEDS: APIXABAN 5 MG TABLET PO ×2 (09:51→20:13)
[2022-05-07] MEDS: INSULIN ASPART (*BKC) 100 UNITS/ML SUB-Q ×3 (09:51→17:42)
[2022-05-07 12:27] LABS: Glucose Point of Care 292 mg/dl (65-105)
--- NOTE | 2022-05-07 13:39 | PM.IMPN ---
Progress Note: A&P Assessment and Plan (1) DKA (diabetic ketoacidosis): Qualifiers: Diabetes mellitus complication detail: without coma Diabetes mellitus type: type 1 Qualified Code(s): E10.10 - Type 1 diabetes mellitus with ketoacidosis without coma Code(s): E11.10 - Type 2 diabetes mellitus with ketoacidosis without coma Status: Acute Assessment and Plan: DKA resolved, patient refuses to do insulin daily but is willing to do a weekly or take intact diabetic pills daily Will trial glipizide with meals prior to discharge (2) Dehydration: Code(s): E86.0 - Dehydration Status: Acute Assessment and Plan: Resolved, continue p.o. fluids (3) Acute kidney failure: Code(s): N17.9 - Acute kidney failure, unspecified Status: Acute Assessment and Plan: Resolved, monitor (4) Acute hyperkalemia: Code(s): E87.5 - Hyperkalemia Status: Acute Assessment and Plan: Improving, monitor (5) Hyponatremia: Code(s): E87.1 - Hypo-osmolality and hyponatremia Status: Acute Assessment and Plan: Slightly worsened today 127, unsure of etiology, possibly SIADH? Recheck tomorrow (6) Right leg DVT: Code(s): I82.401 - Acute embolism and thrombosis of unspecified deep veins of right lower extremity Status: Acute Assessment and Plan: Continue Eliquis for right lower extremity DVT Plan DVT prophylaxis: Eliquis Stress ulcer prophylaxis: Not indicated Nutrition: Diabetic diet Code Status: Full code Subjective Date/time seen: 05/07/22 13:39 Interval history: No overnight events noted. No chest pain or shortness of breath. No nausea, vomiting or diarrhea. No fevers or chills. Patient states she would be willing to do 1 shot a week or pills to control her blood sugars. Review of Systems Review of Systems: 12 point review of systems was assessed and was negative except as noted in the HPI Exam Narrative: General: No acute distress, alert and oriented per baseline HEENT: Atraumatic, normocephalic, mucous membranes moist CV: Regular rate and rhythm, S1, S2 Lungs: Clear to auscultation bilaterally, no rales or crackles noted, no wheezes, good air entry Abdomen: Soft, nontender, nondistended Extremities: Normal to inspection Skin: No rashes noted, no lesions or wounds seen Psych: Euthymic, normal affect Objective Data Vital Signs Vital Signs: Vital Signs - 24 hr 05/06/22 14:00 05/06/22 14:00 05/06/22 16:00 Temperature Pulse Rate 62 66 64 Respiratory Rate 16 Blood Pressure 106/70 Pulse Oximetry 99 Oxygen Delivery 05/06/22 16:00 05/06/22 18:00 05/06/22 18:00 Temperature Pulse Rate 63 67 67 Respiratory Rate 15 18 Blood Pressure 91/41 L 96/50 L Pulse Oximetry 97 99 Oxygen Delivery 05/06/22 20:28 05/06/22 20:00 05/07/22 06:00 Temperature 97.7 F 97.8 F Pulse Rate 58 L 58 L 58 L Respiratory Rate 16 16 20 Blood Pressure 106/48 L 122/63 Pulse Oximetry 99 99 100 Oxygen Delivery Room Air 05/07/22 08:00 Temperature 97.7 F Pulse Rate 59 L Respiratory Rate 20 Blood Pressure 118/60 Pulse Oximetry 100 Oxygen Delivery Intake/Output Intake/Output: Intake & Output 05/04/22 05/05/22 05/06/22 05/07/22 23:59 23:59 23:59 23:59 Intake Total 3363.4 950 Output Total 1450 Balance 1913.4 950 Meds/Results Medications: Active Medications Generic Name Dose Route Start Last Admin Trade Name Freq PRN Reason Stop Dose Admin Acetaminophen 650 mg 05/06/22 00:53 05/07/22 09:50 Acetaminophen 325 Mg Tablet PO 650 mg Q4H PRN Administration Pain (Scale Score 1-3) Apixaban 5 mg 05/06/22 09:00 05/07/22 09:51 Apixaban 5 Mg Tablet PO 5 mg Q12HR DANIEL Administration Dextrose 12.5 gm 05/06/22 00:12 Dextrose 50% 25 Gm/50 Ml Syringe IV PUSH PRN PRN Hypoglycemia Protocol Dextrose 12
[2022-05-07 16:00] VITALS: BP 118/60; PULSE 59; RESP 20; TEMP 36.5; O2SAT 100
[2022-05-07 17:17] LABS: Glucose Point of Care 261 mg/dl (65-105)
[2022-05-07] MEDS: glipiZIDE 5 MG TABLET PO (17:42)
[2022-05-07] MEDS: INSULIN GLARGINE (*BKC) 100 UNITS/ML 20 UNITS SUB-Q (17:43)
[2022-05-07 20:41] VITALS: BP 129/69; PULSE 64; RESP 20; TEMP 36.9; O2SAT 100
[2022-05-07 21:13] LABS: Glucose Point of Care 284 mg/dl (65-105)
[2022-05-08] MEDS: ACETAMINOPHEN 325 MG TABLET 650 MG PO (01:14)
--- NOTE | 2022-05-08 05:06 | PC.NURSE ---
Assumed care of this pt from SAMMY Velazquez.
[2022-05-08 05:16] VITALS: BP 109/62; PULSE 55; RESP 16; TEMP 37.3; O2SAT 100
[2022-05-08] MEDS: glipiZIDE 5 MG TABLET PO ×2 (05:21→11:44)
[2022-05-08] MEDS: APIXABAN 5 MG TABLET PO (08:34)
[2022-05-08 08:38] LABS: Glucose Point of Care 185 mg/dl (65-105)
--- NOTE | 2022-05-08 09:37 | PM.IMPN ---
Progress Note: A&P Assessment and Plan (1) DKA (diabetic ketoacidosis): Qualifiers: Diabetes mellitus complication detail: without coma Diabetes mellitus type: type 1 Qualified Code(s): E10.10 - Type 1 diabetes mellitus with ketoacidosis without coma Code(s): E11.10 - Type 2 diabetes mellitus with ketoacidosis without coma Status: Acute Assessment and Plan: DKA resolved, patient refuses to do insulin daily but is willing to do a weekly or take intact diabetic pills daily Will trial glipizide with meals prior to discharge (2) Dehydration: Code(s): E86.0 - Dehydration Status: Acute Assessment and Plan: Resolved, continue p.o. fluids (3) Acute kidney failure: Code(s): N17.9 - Acute kidney failure, unspecified Status: Acute Assessment and Plan: Resolved, monitor (4) Acute hyperkalemia: Code(s): E87.5 - Hyperkalemia Status: Acute Assessment and Plan: Improving, monitor (5) Hyponatremia: Code(s): E87.1 - Hypo-osmolality and hyponatremia Status: Acute Assessment and Plan: Slightly worsened today 127, unsure of etiology, possibly SIADH? Recheck tomorrow (6) Right leg DVT: Code(s): I82.401 - Acute embolism and thrombosis of unspecified deep veins of right lower extremity Status: Acute Assessment and Plan: Continue Eliquis for right lower extremity DVT Plan DVT prophylaxis: Eliquis Stress ulcer prophylaxis: Not indicated Nutrition: Diabetic diet Code Status: Full code Subjective Date/time seen: 05/08/22 09:37 Interval history: No overnight events noted. No chest pain or shortness of breath. No nausea, vomiting or diarrhea. No fevers or chills. Patient states she would be willing to do 1 shot a week or pills to control her blood sugars. Exam Narrative: General: No acute distress, alert and oriented per baseline HEENT: Atraumatic, normocephalic, mucous membranes moist CV: Regular rate and rhythm, S1, S2 Lungs: Clear to auscultation bilaterally, no rales or crackles noted, no wheezes, good air entry Abdomen: Soft, nontender, nondistended Extremities: Normal to inspection Skin: No rashes noted, no lesions or wounds seen Psych: Euthymic, normal affect Objective Data Vital Signs Vital Signs: Vital Signs - 24 hr 05/07/22 16:00 05/07/22 09:50 05/07/22 20:41 Temperature 97.7 F 98.5 F Pulse Rate 59 L 64 Respiratory Rate 20 20 Blood Pressure 118/60 129/69 Pulse Oximetry 100 100 Oxygen Delivery Room Air 05/07/22 20:00 05/08/22 05:16 05/08/22 08:30 Temperature 99.1 F Pulse Rate 55 L Respiratory Rate 16 Blood Pressure 109/62 Pulse Oximetry 100 Oxygen Delivery Room Air Room Air Intake/Output Intake/Output: Intake & Output 05/05/22 05/06/22 05/07/22 05/09/22 23:59 23:59 23:59 00:59 Intake Total 3363.4 1540 300 Output Total 1450 Balance 1913.4 1540 300 Meds/Results Medications: Active Medications Generic Name Dose Route Start Last Admin Trade Name Freq PRN Reason Stop Dose Admin Acetaminophen 650 mg 05/06/22 00:53 05/08/22 01:14 Acetaminophen 325 Mg Tablet PO 650 mg Q4H PRN Administration Pain (Scale Score 1-3) Apixaban 5 mg 05/06/22 09:00 05/08/22 08:34 Apixaban 5 Mg Tablet PO 5 mg Q12HR DANIEL Administration Dextrose 12.5 gm 05/06/22 12:29 Dextrose 50% 25 Gm/50 Ml Syringe IV PUSH PRN PRN Hypoglycemia Protocol Glipizide 5 mg 05/07/22 16:30 05/08/22 05:21 Glipizide 5 Mg Tablet PO 5 mg TIDAC DANIEL Administration Glucagon 1 mg 05/06/22 12:29 Glucagon For Inj 1 Mg Vial IM PRN PRN Hypoglycemia Protocol Glucose 15 gm 05/06/22 12:29 Glucose Oral Gel 15 Gm Of Glucse In 37.5 Gm Tube PO PRN PRN Hypoglycemia Protocol Dextrose 1,000 mls @ 100 mls/hr 05/06/22 12:29 Dextrose 5% 1,000 Ml IVPB PRN
[2022-05-08 12:11] LABS: Glucose Point of Care 277 mg/dl (65-105)
[2022-05-08] MEDS: INSULIN ASPART (*BKC) 100 UNITS/ML SUB-Q (12:12)
--- NOTE | 2022-05-08 12:47 | PM.DS ---
DS: Admitting Diagnosis Discharge Date 05/08/22 Admitting Diagnosis DKA DS: Discharge Diagnosis Discharge Diagnosis (1) DKA (diabetic ketoacidosis): Qualifiers: Diabetes mellitus complication detail: without coma Diabetes mellitus type: type 1 Qualified Code(s): E10.10 - Type 1 diabetes mellitus with ketoacidosis without coma Code(s): E11.10 - Type 2 diabetes mellitus with ketoacidosis without coma Status: Acute Assessment and Plan: DKA resolved, patient refuses to do insulin daily but is willing to do a weekly or take intact diabetic pills daily Will trial glipizide with meals prior to discharge (2) Dehydration: Code(s): E86.0 - Dehydration Status: Acute Assessment and Plan: Resolved, continue p.o. fluids (3) Acute kidney failure: Code(s): N17.9 - Acute kidney failure, unspecified Status: Acute Assessment and Plan: Resolved, monitor (4) Acute hyperkalemia: Code(s): E87.5 - Hyperkalemia Status: Acute Assessment and Plan: Improving, monitor (5) Hyponatremia: Code(s): E87.1 - Hypo-osmolality and hyponatremia Status: Acute Assessment and Plan: Slightly worsened today 127, unsure of etiology, possibly SIADH? Recheck tomorrow (6) Right leg DVT: Code(s): I82.401 - Acute embolism and thrombosis of unspecified deep veins of right lower extremity Status: Acute Assessment and Plan: Continue Eliquis for right lower extremity DVT Plan DVT prophylaxis: Eliquis Stress ulcer prophylaxis: Not indicated Nutrition: Diabetic diet Code Status: Full code DS: Summary Hospital Course Hospital Course: 71 y/o female with recurrent dka due to non compliance p/w dka. She is admitted to the ICU on DKA protocol and improved quite well. Care coordination looked into Trulicity and it is covered by her insurance an affordable. However, she is willing to do Lantus at home for now still has a supply of this at home that she would like to use up. She was started on glipizide/metformin in the morning, Lantus at night and she is to discuss Trulicity with her primary care physician. See above and med rec for details. Time Spent with Patient Time attestation: Total time spent providing and/or coordinating discharge services: Exam Narrative: General: No acute distress, alert and oriented per baseline HEENT: Atraumatic, normocephalic, mucous membranes moist CV: Regular rate and rhythm, S1, S2 Lungs: Clear to auscultation bilaterally, no rales or crackles noted, no wheezes, good air entry Abdomen: Soft, nontender, nondistended Extremities: Normal to inspection Skin: No rashes noted, no lesions or wounds seen Psych: Euthymic, normal affect DS: Data Data Completed and Pending Labs on day of discharge: Labs from last 24 hours 05/08/22 05/08/22 05/07/22 11:44 08:31 21:11 POC Capillary Glucose 277 H 185 H 284 H 05/07/22 05/07/22 16:59 12:23 POC Capillary Glucose 261 H 292 H Discharge Plan Discharge Attending physician on discharge: Shalini Zaragoza Consulting providers: Chanel Ocampo Discharging Clinician: Shalini Zaragoza Patient Disposition: Home, Self-Care Activity: as tolerated Diet: diabetic Patient Instructions: Antibiotic Form Stand Alone Forms: General Discharge Information Follow-up/Referrals: Samuel Harvey DO [Primary Care Provider] - Discharge Medications: New glipizide-metformin 5-500 mg tablet 1 tablet PO DAILY Qty: 30 0RF insulin glargine [Lantus U-100 Insulin] 100 unit/mL Solution 20 unit subcut QPM 30 Days Qty: 6 0RF Continued acetaminophen [Mapap (acetaminophen)] 325 mg tablet 650 mg PO Q4H PRN (Reason: Pain (Scale Score 1-3)) Eliquis 5 mg tablet 5 mg PO BID Qty: 60 1RF Discontinued insulin aspart U-100 [Novolog U-100 Insulin aspart] 100 unit/mL solution 3 unit
[2022-05-08] MEDS: glipiZIDE XL 5 MG TABCR 10 MG PO (14:03)
[2022-05-08 16:00] VITALS: BP 116/66; PULSE 58; RESP 17; TEMP 36.7; O2SAT 99
[2022-05-08 17:11] LABS: Glucose Point of Care 261 mg/dl (65-105)
== END 2022-05-08 18:34 | disposition home or self-care (01) ==
LOC: ANHICU 15:47 → ANH2MED 05-07 10:13 → ANHICU 05-09 09:02
PROVIDERS: Internal Medicine Critical Care Medicine; Admitting Provider Internal Medicine; PCP Family Medicine; Visit Provider Student in an Organized Health Care Education/Training Program
DX: E10.10 Type 1 diabetes mellitus with ketoacidosis without coma (principal); E86.0 Dehydration; N17.9 Acute kidney failure, unspecified; E87.5 Hyperkalemia; E87.1 Hypo-osmolality and hyponatremia; I82.401 Acute embolism and thrombosis of unspecified deep veins of right lower extremity; M79.7 Fibromyalgia; E03.9 Hypothyroidism, unspecified; G25.81 Restless legs syndrome; F10.90 Alcohol use, unspecified, uncomplicated; F32.A Depression, unspecified; Z79.4 Long term (current) use of insulin; Z79.1 Long term (current) use of non-steroidal anti-inflammatories (NSAID); Z87.01 Personal history of pneumonia (recurrent); Z86.16 Personal history of COVID-19; Z86.711 Personal history of pulmonary embolism
CPT/HCPCS: 36415; 80048; 82948; 83036; 83735; 84100; 96361; 96365; 96366; A9270; G0378; J1815; J3480; J7030

== ENCOUNTER 2022-05-12 04:56 | Inpatient (IN) | payer MEDICARE, OTHER, SELFPAY ==
[2022-05-12] VITALS (32 sets, daily range): BP systolic 95–133; BP diastolic 41–78; PULSE 73–128; RESP 12–29; TEMP 35.9–37.2; O2SAT 96–100; BMI 21.7
--- NOTE | ~2022-05-12 | XR_ITS ---
Portable chest x-ray Comparison: 05/05/2022 Clinical History: DKA Findings: Stable calcified right lung granulomas. Lungs are otherwise clear, without focal consolidat ion or pleural effusion. Cardiomediastinal silhouette is stable. Bones and soft tissues are unremark able. Impression: Clear lungs. Reviewed, dictated and finalized at location . Impression: Clear lungs.
[2022-05-12 05:03] LABS: Glucose Point of Care > 500 mg/dl (65-105)
[2022-05-12 05:24] LABS: Basophils Absolute Auto 0.1 K/mm3 (0.0-0.1); Basophils Percent Auto 0.7 % (0.2-1.2); Eosinophils Percent Auto 0.1 % (0-4.4); Hematocrit 40.8 % (37.0-47.0); Hemoglobin 11.7 g/dL (12.0-15.0); Immature Granulocyte Absolute 0.03 K/mm3 (0.00-0.031); Immature Granulocyte Percent A 0.3 % (0-0.5); Lymphocytes Absolute Auto 0.83 K/mm3 (0.9-3.2); Lymphocytes Percent Auto 9.5 % (18.3-44.2); Mean Corpuscular HGB Conc 28.7 g/dl (32-36); Mean Corpuscular Hemoglobin 30.4 pg (26-34); Mean Platelet Volume 9.3 fl (7.4-10.4); Monocytes Absolute Auto 0.4 K/mm3 (0.1-0.6); Neutrophils Absolute Auto 7.5 K/mm3 (1.3-6.7); Neutrophils Percent Auto 85.4 % (45.5-73.1); Platelet Count Result 475 k/mm3 (150-375); Red Blood Count 3.85 M/mm3 (4.2-5.4); Red Cell Distribution Width 15.6 % (11.5-14.5); White Blood Count 8.7 K/mm3 (4.5-10.0)
[2022-05-12] MEDS: SODIUM CHLORIDE 0.9% IV 3,000 ML 999 ML IV CONT (05:35)
[2022-05-12 05:37] LABS: Alveolar/Arterial O2 Gradient 14.9 mmHg; Base Excess ABG -20.6 mEq/l (+/-2.0); Carboxyhemoglobin 0.4 % THb (0-2.0); Fractional Inspired Oxygen 21 %; HCO3 ABG 6.1 mEq/l (22.0-26.0); Methemoglobin ABG 0.2 %THb (0-1.5); Oxygen Content ABG 16.1 %vol (16.0-22.0); Oxyhemoglobin 96.2 % THb (90.0-100.0); PO2 ABG 113.4 mmHg (80.0-100.0); Reduced Hemoglobin 3.2 %THb (0-5.0); Total Hemoglobin 11.8 g/dL (12.0-18.0)
[2022-05-12 05:40] LABS: pH ABG 7.153 (7.350-7.450)
--- NOTE | 2022-05-12 05:40 | ED.GENADULT ---
HPI - General Adult General Chief complaint: Recheck/Abnormal Lab/Rx Stated complaint: N/V HIGH BG History of Present Illness HPI narrative: A 71-year-old female well known to our department for recurrent DKA presenting to ED with high blood sugars. EMS was called because the patient said that she was feeling weak. She is also having epigastric pain and nausea and vomiting. EMS found her blood sugar to be high. Patient refuses to take insulin on an outpatient basis. She is denying chest pain, difficulty breathing, urinary symptoms. Related Data Home Medications Medication Instructions Recorded Confirmed acetaminophen 325 mg tablet (Mapap 650 mg PO Q4H PRN Pain (Scale 04/20/22 05/06/22 (acetaminophen)) Score 1-3) Allergies Allergy/AdvReac Type Severity Reaction Status Date / Time banana Allergy Severe SEVERE Verified 05/12/22 05:39 HIVES aspirin AdvReac Intermediate Nausea and Verified 05/12/22 05:39 Vomiting fluoxetine [From Prozac] AdvReac Hallucinati Verified 05/12/22 05:39 ng PMFSH Past Medical History Medical History Depression Diabetic peripheral neuropathy Fibromyalgia Hypothyroidism Memory change Ovarian cancer At the age of 33, status post hysterectomy. Patient states that half an ovary was left during surgery. She required no further treatment. Pneumonia due to COVID-19 virus (09/2020) Pulmonary emboli Restless leg syndrome Shingles Type 2 diabetes mellitus Hemoglobin A1c was > 14% August 2021 C-peptide 0.63. Surgical History Surgical History History of tonsillectomy (1970) History of total hysterectomy with bilateral salpingo-oophorectomy (BSO) (1983) History of tubal ligation (1983) Family History Family History Grandparent Family history of premature coronary heart disease, Onset Age: 64 Father Family history of respiratory disorder, Onset Age: 87 Family history of cardiovascular disease Patient's father is Family history of Alzheimer's disease Cerebrovascular accident Mother Family history of primary malignant neoplasm of liver, Onset Age: 64 Family history of malignant neoplasm Patient's mother is , Onset Age: 64 Family history of malignant neoplasm of breast in first degree relative Sibling Heart attack Sibling Heart attack Social History Social History Social History: The patient is . She lives in her own home in [place], [place]. Her daughter Mary used to live with her but isn't currently however the patient stated that her daughter is going to move back in with her. She has 2 daughters, and designates her daughter Jose Posey, as her surrogate decision maker. She is a lifelong nonsmoker. She drinks perhaps 4-12 alcoholic beverages a week. No drug use. The patient tells me that she does not drink anymore. Code status: Full code. Smoking status: Never smoker Second hand tobacco smoke exposure: No Alcohol intake: never Substance use: never Substance use type: does not use Lack of Transportation: No Lack of Food: Never True Current Housing: I Have Housing Concerned About Future Housing: No Difficulty Paying Gas/Electric Bills: No Difficulty Paying for Meds: No Currently Unemployed: No Education: Decline to Answer Difficulty w/ Childcare or Family Care: No Living arrangements: alone Occupation/Education: retired Spiritual care concerns: No Exam Narrative: APPEARANCE: Chronically unwell appearing female Head: atraumatic. EYES: EOMI, NOSE: Atraumatic NECK: Trachea midline RESPIRATORY: increased respiratory rate, clear to auscultation CARDIOVASCULAR: tachycardic ABDOMINAL: diffusely tender but soft with no guarding or rebound MUSCULOSKELE
[2022-05-12 05:41] LABS: Device ROOM AIR; Modified Allen's Test Pass; PCO2 ABG 17.9 mmHg (35.0-45.0); Site Drawn LEFT RADIAL
[2022-05-12 05:44] LABS: Platelet Estimate Increased (Adequate)
[2022-05-12 05:45] LABS: Acanthocytes 2+ (NORMAL); Anisocytosis 1+ (NORMAL); Ovalocytes 1+ (NORMAL); Schistocytes None Seen (NORMAL)
[2022-05-12 05:51] LABS: Appearance Urine Clear (Clear); Bilirubin Urine Negative (Negative); Blood Urine Negative (Negative); Color Urine Yellow (Yellow); Glucose Urine UA 3+ mg/dL (Negative); Ketones Urine 3+ mg/dL (Negative); Leukocyte Esterase Ur Negative LEU/UL (Negative); Nitrate Urine Negative (Negative); Protein Urine Negative (Negative); Specific Grav Ur 1.025 (1.001-1.035); Urobilinogen Urine 0.2 mg/dL (<2.0)
[2022-05-12 06:03] LABS: Add Urine Microscopic? NO
[2022-05-12 06:45] LABS: Lactic Acid Reflex 3.2 mmol/L (0.7-2.0)
[2022-05-12 07:00] LABS: Alanine Aminotransferase 39 U/L (6-35); Albumin Level 5.4 g/dL (3.5-5.1); Alkaline Phosphatase 251 U/L (38-126); Aspartate Amino Transferase 27 U/L (14-36); Bilirubin,Total 0.6 mg/dL (0.2-1.3); Blood Urea Nitrogen 29 mg/dL (7-17); Calcium 11.8 mg/dL (8.4-10.2); Carbon Dioxide < 5 mmol/L (22-30); Chloride 91 mmol/L (98-107); Estimated CRCL calculation 37 ml/min; Estimated Glomerular Filt Rate > 60; Glucose 1005 mg/dL (65-110); Magnesium 2.7 mg/dL (1.6-2.3); Phosphorus 8.4 mg/dL (2.5-4.5); Potassium 5.6 mmol/L (3.4-5.0); Sodium 134 mmol/L (137-145)
--- NOTE | 2022-05-12 07:29 | ECG_ITS ---
Measurements Intervals Edson Rate: 113 P: 72 VT: 174 QRS: 39 QRSD: 94 T: 34 QT: 281 QTc: 386 Interpretive Statements SINUS TACHYCARDIA POSSIBLE LEFT ATRIAL ENLARGEMENT CANNOT RULE OUT SEPTAL INFARCT, AGE INDETERMINATE BORDERLINE ST-T WAVE ABNORMALITY- INF/LAT LEADS BASELINE ARTIFACT- I, II, III, AVR, AVL, AVF, V1-V6 ABNORMAL ECG COMPARED TO ECG 05/05/2022 20:16:14 SINUS TACHYCARDIA NOW PRESENT MYOCARDIAL INFARCT FINDING NOW PRESENT Electronically Signed On 05-12-2022 8:07:23 CDT by Unruly Panchal D.O.
[2022-05-12] MEDS: INSULIN HUMAN REGULAR (*BKC) 100 UNITS in SODIUM CHLORIDE 0.9% IV 99 ML 18.9 UNITS IV CONT (08:04)
[2022-05-12 08:23] LABS: Reflex Lactic Acid Yes or No Add Lactic
--- NOTE | 2022-05-12 08:48 | PC.NURSE ---
Pt resting comfortably, pt seems to be having some hallucinations, pt is chewing on covers and acting like she is drinking. pt reoriented to place and time and able to answer more appropriately. pt has had 2L NS at this time, 3/3 hanging. Insulin drip see mar, running at this time.
[2022-05-12 09:07] LABS: Glucose Point of Care > 500 mg/dl (65-105)
--- NOTE | 2022-05-12 09:08 | ADMGEN ---
This patient, Karly Leslie, was admitted to Intensive Care Unit-11. Patient/family oriented to hospital policies and general routines including ID bracelet, bed and alarms, visiting hours, pain management, procedures, bathroom and other care routines, personal items, smoking policy, room service/diet, and visiting hours. Information on how to activate the Rapid Response Team has been discussed. Patient/Family are encouraged to report perceived risks to care and to ask questions if they do not understand what they are told or what they should do.
[2022-05-12 10:14] LABS: Lactic Acid 4.7 mmol/L (0.7-2.0)
[2022-05-12 10:23] LABS: Blood Urea Nitrogen 31 mg/dL (7-17); Calcium 10.3 mg/dL (8.4-10.2); Carbon Dioxide < 5 mmol/L (22-30); Chloride 101 mmol/L (98-107); Estimated CRCL calculation 30 ml/min; Estimated Glomerular Filt Rate 49; Glucose 873 mg/dL (65-110); Potassium 5.1 mmol/L (3.4-5.0); Sodium 142 mmol/L (137-145)
--- NOTE | 2022-05-12 10:23 | WPDCNINT ---
Assessment and Plan Assessment and plan (1) DKA (diabetic ketoacidosis): Code(s): E11.10 - Type 2 diabetes mellitus with ketoacidosis without coma Status: Acute Assessment and Plan: patient presented with recurrent DKA secondary to noncompliance UA and chest x-ray negative patient is being given IVF bolus which will be followed by infusion patient has been started on Insulin infusion and Q1H glucose monitoring Serial labs are ordered Replace electrolytes as needed (2) Non compliance w medication regimen: Code(s): Z91.14 - Patient's other noncompliance with medication regimen Status: Acute Assessment and Plan: this has been discussed multiple times with the patient and unfortunately patient claims that she will take her insulin regularly prior to discharge and then goes home and does not take her insulin or checks her blood sugar regularly will revisit this issue prior to discharge as patient is clinically better (3) Acute kidney injury: Code(s): N17.9 - Acute kidney failure, unspecified Status: Acute Assessment and Plan: secondary to dehydration hypovolemia and DKA continue IV fluids monitor urine output electrolytes and creatinine (4) Hyperkalemia: Code(s): E87.5 - Hyperkalemia Status: Acute Assessment and Plan: secondary to JAMILA and hyperglycemia improving with IV fluids and IV insulin (5) DVT (deep venous thrombosis): Code(s): I82.409 - Acute embolism and thrombosis of unspecified deep veins of unspecified lower extremity Status: Acute Assessment and Plan: history of DVT continue Eliquis (6) Lactic acidosis: Code(s): E87.20 - Acidosis, unspecified Status: Acute Assessment and Plan: likely secondary to hypovolemia hypoperfusion and metformin UA and chest x-ray negative. she was just discharged 2 days ago. Patient also does not have any symptoms suggestive of infection no objective sign of infection at this time Cultures ordered and sent hold antibiotics at this time continue IV fluids Plan DVT prophylaxis - continue Eliquis Nutrition - NPO except water at this time Code Status - Full Code Total Critical Care Time - 35 minutes Due to a high probability of clinically significant, life threatening deterioration, the patient required my highest level of preparedness to intervene emergently and I personally spent this critical care time directly and personally managing the patient. This critical care time included obtaining a history; examining the patient; pulse oximetry; ordering and review of studies; arranging urgent treatment with development of a management plan; evaluation of patient's response to treatment; frequent reassessment; and discussions with other providers. It was exclusive of separately billable procedures and treating other patients and teaching time. Please see Assessment and Plan section and the rest of the note for further information on patient assessment and treatment Director Of Surgery Consult Note Consult date: 05/12/22 Reason for consult: DKA HPI: Karly Leslei is a 71 year old female with past medical history of poorly-controlled type 2 diabetes which was diagnosed in March of 2019 and noncompliance with insulin with multiple frequent admissions to ER with DKA presented to ED this morning with chief complaint of elevated blood sugar.? Patient was discharged few days ago on 05/08 after treatment for DKA. she was started on glipizide and metformin and was continued on Lantus. She states that she was finding fine for 1 day at then she started feeling weak and tired. She admits that she was not taking her insulin regularly and not checking her blood sugar regularly. She states she laid in bed and just drank water.? she states that she does not like to check her blood sugar or administer herself insulin. She states her daughter was in [place] and she was by herself. S
[2022-05-12] MEDS: SODIUM CHLORIDE 0.45% 1,000 ML 150 ML IV CONT (10:50)
[2022-05-12] MEDS: ONDANSETRON INJ 4 MG/2 ML VIAL IV PUSH (10:50)
[2022-05-12 11:24] LABS: Glucose Point of Care > 500 mg/dl (65-105)
[2022-05-12] MEDS: ACETAMINOPHEN 325 MG TABLET 650 MG PO ×2 (11:31→16:46)
--- NOTE | 2022-05-12 13:12 | PM.IMHP ---
H&P: HPI History of Present Illness Date/Time: 05/12/22 13:12 Chief Complaint: Nausea vomiting and elevated blood sugar Narrative: This is 71 year female patient who has a history of diabetes and has frequent admissions the hospital for DKA. Patient was last discharged on at 05/08/2022. The patient stated that her daughter is currently in [place] and is not able to help take care of her at this time and will be out of town for at least 2-3 more days. The patient has told me in the past that she does not want to monitor her blood sugar take the insulin. It was reported in her discharge summary the patient was willing to take diabetic pills daily and they were going to trial glipizide with meals. The patient also stated on her discharge that she was willing to take her Lantus. And the patient was going to discuss Trulicity with her primary care doctor. However today the patient came into the emergency room with complaints of feeling weak and EMS found that her blood sugar was high it. The patient refused to take insulin on an outpatient basis. The patient denied any chest pain or difficulty breathing. Her pH is 7.153 pCO2 17.9 PO2 is 113.4 bicarb 6.1. Her sodium 132. Her blood glucose on the chemistry was 1005 and is now down to 226. The patient was started on the DKA protocol on an insulin drip. Her blood pressure is slightly low at 98/45. The patient has a complaint of right leg pain. She has a history of DVT to the right leg and states that she does take her Eliquis. She also has a history of a PE as well. The patient is being admitted to inpatient status on the date of service of 05/12/2022. Review of Systems Review of Systems: All systems reviewed & are unremarkable except as noted in HPI and below Constitutional: Constitutional: Reports as per HPI and Reports no additional constitutional complaints Eyes: Eyes: Reports as per HPI and Reports no additional eye complaints ENT: Reports system reviewed and no additional complaints, except as documented and Reports Normal hearing present Cardiovascular: Cardiovascular: Reports no additional cardiovascular complaints Respiratory: Respiratory: Reports no additional respiratory complaints and Reports no additional respiratory complaints Gastrointestinal: Gastrointestinal: Reports as per HPI and Reports no additional gastrointestinal complaints Musculoskeletal: Musculoskeletal: Reports no additional musculoskeletal complaints Integumentary/Breasts: Skin/Breast: Reports system reviewed and no additional complaints, except as docu and Reports as per HPI Neurologic: Reports system reviewed and no additional complaints, except as documented, Reports as per HPI and Reports Normal hearing present Psychiatric: Psychiatric: Reports no additional psychiatric complaints and Reports as per HPI Endocrine: Endocrine: Reports no additional endocrine complaints Hematologic/Lymphatic: Hematologic/Lymphatic: Reports no additional hematologic/lymphatic complaints Allergic/Immunologic: Allergic/Immunologic: Reports no additional allergic/immunologic complaints PMFSH Past Medical History Medical History Depression Diabetic peripheral neuropathy Fibromyalgia Hypothyroidism Memory change Ovarian cancer At the age of 33, status post hysterectomy. Patient states that half an ovary was left during surgery. She required no further treatment. Pneumonia due to COVID-19 virus (09/2020) Pulmonary emboli Restless leg syndrome Shingles Type 2 diabetes mellitus Hemoglobin A1c was > 14% August 2021 C-peptide 0.63. Surgical History Surgical History History of tonsillectomy (1970) History of total hysterectomy with bilateral salpingo-oophorectomy (BSO) (1983) History of tubal ligation (1983) Family History Family History Grandparent De
[2022-05-12] MEDS: INSULIN HUMAN REGULAR (*BKC) 100 UNITS in SODIUM CHLORIDE 0.9% IV 99 ML 14.6 UNITS IV CONT (13:54)
[2022-05-12 15:05] LABS: Glucose Point of Care 396 mg/dl (65-105)
[2022-05-12 15:05] LABS: Glucose Point of Care 352 mg/dl (65-105)
[2022-05-12 15:07] LABS: Anion Gap 12 mmol/L (8-16); Blood Urea Nitrogen 24 mg/dL (7-17); Calcium 9.3 mg/dL (8.4-10.2); Carbon Dioxide 15 mmol/L (22-30); Chloride 105 mmol/L (98-107); Estimated CRCL calculation 76 ml/min; Estimated Glomerular Filt Rate > 60; Glucose 226 mg/dL (65-110); Potassium 3.8 mmol/L (3.4-5.0); Sodium 132 mmol/L (137-145)
[2022-05-12 15:20] LABS: Glucose Point of Care 220 mg/dl (65-105)
[2022-05-12] MEDS: KCL 20 MEQ/D5/0.45% SOD CHL 1,000 ML 150 ML IV CONT (15:49)
[2022-05-12 16:36] LABS: Glucose Point of Care 144 mg/dl (65-105)
[2022-05-12 17:35] LABS: Glucose Point of Care 117 mg/dl (65-105)
[2022-05-12 18:31] LABS: Anion Gap 10 mmol/L (8-16); Blood Urea Nitrogen 24 mg/dL (7-17); Calcium 9.8 mg/dL (8.4-10.2); Carbon Dioxide 20 mmol/L (22-30); Chloride 103 mmol/L (98-107); Estimated CRCL calculation 63 ml/min; Estimated Glomerular Filt Rate > 60; Glucose 160 mg/dL (65-110); Sodium 133 mmol/L (137-145)
[2022-05-12] MEDS: INSULIN GLARGINE (*BKC) 100 UNITS/ML 20 UNITS SUB-Q (18:55)
[2022-05-12] MEDS: LACTATED RINGERS 1,000 ML 75 ML IV CONT (18:56)
[2022-05-12] MEDS: APIXABAN 5 MG TABLET PO (20:16)
[2022-05-12] MEDS: ATORVASTATIN 20 MG TABLET PO (20:16)
[2022-05-12] MEDS: PRAMIPEXOLE 1 MG TABLET 3 MG PO (20:16)
[2022-05-12 20:28] LABS: Glucose Point of Care 139 mg/dl (65-105)
[2022-05-12 21:21] LABS: Glucose Point of Care 90 mg/dl (65-105)
[2022-05-12 22:15] LABS: Anion Gap 5 mmol/L (8-16); Blood Urea Nitrogen 25 mg/dL (7-17); Carbon Dioxide 21 mmol/L (22-30); Chloride 108 mmol/L (98-107); Estimated CRCL calculation 76 ml/min; Estimated Glomerular Filt Rate > 60; Glucose 77 mg/dL (65-110); Potassium 3.4 mmol/L (3.4-5.0); Sodium 134 mmol/L (137-145)
[2022-05-13] VITALS (12 sets, daily range): BP systolic 118–136; BP diastolic 65–81; PULSE 63–98; RESP 16–22; TEMP 36.6–37.4; O2SAT 96–100
[2022-05-13 00:35] LABS: Glucose Point of Care 107 mg/dl (65-105)
[2022-05-13 05:14] LABS: Hematocrit 29.1 % (37.0-47.0); Hemoglobin 9.3 g/dL (12.0-15.0); Mean Corpuscular Hemoglobin 29.9 pg (26-34); Mean Corpuscular Volume 93.6 fl (80-100); Mean Platelet Volume 9.1 fl (7.4-10.4); Platelet Count Result 310 k/mm3 (150-375); Red Blood Count 3.11 M/mm3 (4.2-5.4); White Blood Count 7.6 K/mm3 (4.5-10.0)
[2022-05-13 05:27] LABS: Glucose Point of Care 187 mg/dl (65-105)
[2022-05-13 05:38] LABS: Alanine Aminotransferase 31 U/L (6-35); Albumin Level 3.4 g/dL (3.5-5.1); Alkaline Phosphatase 141 U/L (38-126); Anion Gap 8 mmol/L (8-16); Aspartate Amino Transferase 32 U/L (14-36); Bilirubin,Total 0.4 mg/dL (0.2-1.3); Blood Urea Nitrogen 19 mg/dL (7-17); Calcium 9.1 mg/dL (8.4-10.2); Carbon Dioxide 19 mmol/L (22-30); Chloride 106 mmol/L (98-107); Estimated CRCL calculation 76 ml/min; Estimated Glomerular Filt Rate > 60; Glucose 162 mg/dL (65-110); Magnesium 1.9 mg/dL (1.6-2.3); Phosphorus 2.4 mg/dL (2.5-4.5); Potassium 3.7 mmol/L (3.4-5.0); Sodium 133 mmol/L (137-145)
[2022-05-13 07:55] LABS: Glucose Point of Care 243 mg/dl (65-105)
[2022-05-13] MEDS: POTASSIUM PHOS,M-BASIC-D-BASIC 15 MMOL in SODIUM CHLORIDE 0.9% IV 250 ML 63.75 MMOL IVPB (07:58)
[2022-05-13] MEDS: glipiZIDE 5 MG TABLET PO (07:59)
[2022-05-13] MEDS: metFORMIN HCL 500 MG TABLET PO (08:00)
[2022-05-13] MEDS: INSULIN ASPART (*BKC) 100 UNITS/ML SUB-Q ×2 (08:00→17:52)
[2022-05-13] MEDS: APIXABAN 5 MG TABLET PO ×2 (08:01→21:35)
--- NOTE | 2022-05-13 08:07 | WPDINTPN ---
Progress Note: A&P Assessment and Plan (1) DKA (diabetic ketoacidosis): Code(s): E11.10 - Type 2 diabetes mellitus with ketoacidosis without coma Status: Acute Assessment and Plan: patient presented with recurrent DKA secondary to noncompliance UA and chest x-ray negative her anion gap has now closed and symptoms improved continue Lantus and change sliding scale to q.a.c. HS replace potassium and phosphate diabetic diet (2) Non compliance w medication regimen: Code(s): Z91.14 - Patient's other noncompliance with medication regimen Status: Acute Assessment and Plan: this has been discussed multiple times with the patient and unfortunately patient claims that she will take her insulin regularly prior to discharge and then goes home and does not take her insulin or checks her blood sugar regularly will revisit this issue prior to discharge as patient is clinically better (3) Acute kidney injury: Code(s): N17.9 - Acute kidney failure, unspecified Status: Acute Assessment and Plan: secondary to dehydration hypovolemia and DKA resolved with IV fluids replace low potassium and phosphate monitor urine output electrolytes and creatinine (4) Hyperkalemia: Code(s): E87.5 - Hyperkalemia Status: Acute Assessment and Plan: secondary to JAMILA and hyperglycemia resolved with IV fluids and IV insulin (5) DVT (deep venous thrombosis): Code(s): I82.409 - Acute embolism and thrombosis of unspecified deep veins of unspecified lower extremity Status: Acute Assessment and Plan: history of DVT continue Eliquis (6) Lactic acidosis: Code(s): E87.20 - Acidosis, unspecified Status: Acute Assessment and Plan: likely secondary to hypovolemia hypoperfusion and metformin UA and chest x-ray negative. she was just discharged 2 days ago. Patient also does not have any symptoms suggestive of infection no objective sign of infection at this time Cultures ordered and negative till now hold antibiotics at this time Plan DVT prophylaxis - continue Eliquis Nutrition - diabetic diet Code Status - Full Code incentive spirometry, up in chair transfer out of ICU today Subjective Date/time seen: 05/13/22 Overnight events reviewed. Afebrile Patient now off of insulin infusion. She states she feels better this morning and would like to eat breakfast. She has been drinking water and clear liquids since yesterday. She states that nausea has completely resolved. Patient denies fever, chest pain, shortness of breath, cough,vomiting, abdominal pain,, diarrhea, headache or constipation. All other systems were reviewed and were negative good urine output other Vitals acceptable Review of Systems Review of Systems: All systems reviewed & are unremarkable except as noted in HPI and below ( HPI) Exam Narrative: General: Pt is alert awake and in NAD Lungs/Chest: Trachea central Clear BS B/L, No crackles or wheezing. Cardiac: RRR. Normal S1 S2. No murmurs Circulation: Pedal pulses are intact and symmetrical. Abdomen: Normal bowel sounds.. Soft. NT. ND. Extremities: No clubbing, cyanosis or edema. Warm : Grace in place Neurologic: Follows commands. Moves all 4 extremities PERRL Skin: No Rash Objective Data Vital Signs Vital Signs: Vital Signs - 24 hr 05/12/22 08:17 05/12/22 08:30 05/12/22 08:31 Temperature Pulse Rate 115 H 120 H 128 H Respiratory Rate 25 H 29 H 29 H Blood Pressure 124/41 L Pulse Oximetry Oxygen Delivery 05/12/22 08:51 05/12/22 09:08 05/12/22 10:00 Temperature 35.9 C L Pulse Rate 128 H 115 H 93 Respiratory Rate 24 H 21 H Blood Pressure 120/63 Pulse Oximetry 100 Oxygen Delivery 05/12/22 10:00 05/12/22 11:00 05/12/22 12:00 Temperature Pulse Rate 93 92 107 H Respiratory Rate 21 H 21 H Blood Pressure 115/60 133/74 Pulse Oximetry 100 100 Ox
--- NOTE | 2022-05-13 08:55 | PC.NURSE ---
ARRIVES FROM ICU OVERFLOW PT.VIA WC TO GUEST ROOM ATTENDANT 5. DENIES PAIN OR SOB ON ARRIVAL. WILL CONTINUE TO MONITOR.
--- NOTE | 2022-05-13 12:50 | PC.NURSE ---
DR. LLOYD HERE TO SEE PT. CONDITION UPDATE GIVEN. OK TO REMOVE MEZA. PT. HAS BEEN RESTING WITH EYES CLOSED WHEN NOT DISTURBED FOR CARE.
[2022-05-13 13:25] LABS: Glucose Point of Care 198 mg/dl (65-105)
[2022-05-13] MEDS: LACTATED RINGERS 1,000 ML 75 ML IV CONT (13:26)
--- NOTE | 2022-05-13 15:47 | PC.NURSE ---
CALL RECEIVED FROM DR. ROBERT MIGUEL, PSYCHIATRIST. HAS BEEN CONSULTED BY HOSPITALIST. CONDITION REPORT GIVEN TO DR. MIGUEL.
--- NOTE | 2022-05-13 16:01 | PC.NURSE ---
VISION CARE ASSOCIATE NOTIFIED THAT DR. MIGUEL HAS CALLED IN FOR REPORT ON PT. AND WILL BE CALLING CARE COORDINATION FOR ASSIST WITH A MINI MENTAL HEALTH EXAM.
--- NOTE | 2022-05-13 16:15 | PC.NURSE ---
REPORT CALLED TO LAMAR CHRISTIANSON ON . PT. IS GOING TO MOVE TO ROOM 258 VIA BED. PT. VOICES NO C/O AT THIS TIME.
--- NOTE | 2022-05-13 16:25 | PM.IMPN ---
Progress Note: A&P Assessment and Plan (1) DKA (diabetic ketoacidosis): Code(s): E11.10 - Type 2 diabetes mellitus with ketoacidosis without coma Status: Acute Assessment and Plan: patient presented with recurrent DKA secondary to noncompliance UA and chest x-ray negative her anion gap has now closed and symptoms improved continue Lantus and change sliding scale to q.a.c. HS replace potassium and phosphate diabetic diet HPI-Narrative: This is 71 year female patient who has a history of diabetes and has frequent admissions the hospital for DKA.? Patient was last discharged on at 05/08/2022.? The patient stated that her daughter is currently in [place] and is not able to help take care of her at this time and will be out of town for at least 2-3 more days.? The patient has told me in the past that she does not want to monitor her blood sugar take the insulin.? It was reported in her discharge summary the patient was willing to take diabetic pills daily and they were going to trial glipizide with meals.? The patient also stated on her discharge that she was willing to take her Lantus.? And the patient was going to discuss Trulicity with her primary care doctor. However today the patient came into the emergency room with complaints of feeling weak and EMS found that her blood sugar was high it.? The patient refused to take insulin on an outpatient basis.? The patient denied any chest pain or difficulty breathing.? Her pH is 7.153 pCO2 17.9 PO2 is 113.4 bicarb 6.1.? Her sodium 132.? Her blood glucose on the chemistry was 1005 and is now down to 226.? The patient was started on the DKA protocol on an insulin drip.? Her blood pressure is slightly low at 98/45.? The patient has a complaint of right leg pain.? She has a history of DVT to the right leg and states that she does take her Eliquis.? She also has a history of a PE as well. 05/13/2022 interval history: 71-year-old female with history of diabetes, pulmonary emboli, and recurrent DKA presented to emergency department with hyperglycemia and was found to have DKA, patient was aggressively hydrated and insulin infusion was started and admitted in ICU, patient's blood sugars have trended down patient is now off the insulin drip and on long acting insulin and sliding scale, patient has a recurrent history of DKA and noncompliance with her medical management, this seems to be underlying psychiatric illness we have consulted Psychiatry to evaluate the patient and further recommendation to follow, will have a PT OT evaluate the and will monitor. (2) Non compliance w medication regimen: Code(s): Z91.14 - Patient's other noncompliance with medication regimen Status: Acute Assessment and Plan: this has been discussed multiple times with the patient and unfortunately patient claims that she will take her insulin regularly prior to discharge and then goes home and does not take her insulin or checks her blood sugar regularly will revisit this issue prior to discharge as patient is clinically better (3) Acute kidney injury: Code(s): N17.9 - Acute kidney failure, unspecified Status: Acute Assessment and Plan: secondary to dehydration hypovolemia and DKA resolved with IV fluids replace low potassium and phosphate monitor urine output electrolytes and creatinine (4) Hyperkalemia: Code(s): E87.5 - Hyperkalemia Status: Acute Assessment and Plan: secondary to JAMILA and hyperglycemia resolved with IV fluids and IV insulin (5) DVT (deep venous thrombosis): Code(s): I82.409 - Acute embolism and thrombosis of unspecified deep veins of unspecified lower extremity Status: Acute Assessment and Plan: history of DVT continue Eliquis (6) Lactic acidosis: Code(s): E87.20 - Acidosis, unspecified Status: Acute Assessment and Plan: likely secondary to hypovolemia hypoperfusion and metformin UA and chest x-ray
--- NOTE | 2022-05-13 16:35 | PC.NURSE ---
MEMBER OF CARE COORDINATION HERE TO SEE PT. ATTEMPTED TO NOTIFY PT'S DAUGHTER, DENVER LAMAR ([phone]) THAT PT. TO MOVING ROOM TO 258. NO ANSWER.
--- NOTE | 2022-05-13 17:00 | PC.NURSE ---
This patient, Karly Leslie, was transferred to [address] [place] [address], room 258, on 05/13/22 at 1700 via bed. Personal belongings sent with patient. Report given to Jania CHRISTIANSON already. Appropriate documentation sent with patient.
[2022-05-13 17:33] LABS: Glucose Point of Care 248 mg/dl (65-105)
--- NOTE | 2022-05-13 17:40 | ADMGEN ---
This patient, Karly Leslie, was admitted to Medical Room 258-01. Patient oriented to hospital policies and general routines including ID bracelet, bed and alarms, visiting hours, pain management, procedures, bathroom and other care routines, personal items, smoking policy, room service/diet, and visiting hours. Information on how to activate the Rapid Response Team has been discussed. Patient/Family are encouraged to report perceived risks to care and to ask questions if they do not understand what they are told or what they should do.
[2022-05-13] MEDS: INSULIN GLARGINE (*BKC) 100 UNITS/ML 20 UNITS SUB-Q (17:51)
--- NOTE | 2022-05-13 18:23 | WPDCNPSYCH ---
[facility] Data of Consult Date/Time: 05/13/22 18:23 Requesting Physician: Becka Arzate MD Primary Care Provider: Samuel Harvey DO Consult Narrative Narrative: CHIEF COMPLAINT/REASON FOR HOSPITALIZATION/REASON FOR PSYCHIATRIC HOSPITALIZATION: Patient is a 71-year-old lady who was medically admitted for diabetes and who psychiatric consultation is ordered for depression. HISTORY OF PRESENT ILLNESS: Quality: Patient reports that she has depressed mood much of the time for the past few months. She denied any additional spontaneously reported emotional or psychological symptoms. Associated symptoms: When prompted the patient reports having insomnia present for many years. She reports a significant weight loss [id number] over the past 1 year. She denies feelings of worthlessness. She endorses anhedonia reporting that she stays at home now and does not go anywhere. She states that she used to go out but no longer is motivated to go out anymore. She reports increased irritability. In she reports markedly decreased activity. She states it is a chore just getting dressed. Her concentration and memory she reports to be normal for her her mini-mental status exam score of 28/30 confirms her history. The patient denies any auditory or visual hallucinations or paranoia. Focus: The patient reports she has been diagnosed with insulin-dependent diabetes mellitus for about 1 year. She states she hates needles and is supposed to be stuck 4 times a day. She became tearful when describing this change in her health. She is spontaneously requesting on insulin pump. Aida evaluation: The patient denies any prior history of bipolar disorder or manic depression. At this hospitalization the patient has insufficient evidence to support the diagnosis of bipolar disorder. Self-harm evaluation: Patient denies any prior history of intentionally cutting or burning herself. Suicide evaluation: Patient denies suicidal ideation at time of interview. She denies any recent or remote history of either suicidal ideation or attempt. She does own a gun and keeps it under the mattress. She denies any family history of completed or attempted suicide. PAST PSYCHIATRIC HISTORY: Patient denies any past psychiatric history. She has never been treated by a psychiatrist nor by a counselor. She has never been psychiatrically hospitalized. She does report having been treated with Prozac in the past that caused confusion and hallucinations. That was many years ago. PAST MEDICAL HISTORY: Insulin-dependent diabetes mellitus diagnosed about 1 year ago History of right lower extremity deep vein thrombosis 12/2021 Patient reports having a spot on her lung. She did have a chest x-ray demonstrating granulomatous disease. COVID in the past Restless leg syndrome Fibromyalgia Shingles many years ago 3, para 2, abortive 1 Tonsillectomy Tubal ligation Total abdominal hysterectomy and bilateral salpingo oophorectomy Small sliding hiatal hernia on CT of the abdomen 05/05/2022 Mild levocurvature with moderate thoracolumbar spondylosis on CT of the chest 05/05/2022 Abnormal EKG 05/12/2022 Anemia of unknown etiology (hemoglobin 9.3 ) HOME MEDICATIONS: Atorvastatin 20mg p.o. q.h.s. Eliquis 5mg p.o. b.i.d. Glipizide/metformin p.o. q.a.m. Lantus 20units subcutaneous Q HS Requip 3mg p.o. q.h.s. ALLERGIES: Bananas cause severe hives; aspirin causes nausea and vomiting; Prozac causes hallucinations SMOKING HISTORY/ALCOHOL HISTORY/DRUG HISTORY: Never FAMILY HISTORY: Patient denies any family history of alcoholism, drug use, mental illness, completed or attempted suicide. SOCIAL HISTORY: Patient was born and raised in [place], [place]. She is a high-school graduate who attended regular classes. 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 She last worked at age 48 when her told her to quit working. She h
[2022-05-13 20:07] LABS: Vitamin D 25 Hydroxy 28.4 ng/mL
[2022-05-13 20:31] LABS: HIV 1/2 Ab P24 Ag Result Negative (Negative)
[2022-05-13 21:17] LABS: Hepatitis B Surface Antigen Negative (Negative)
[2022-05-13 21:22] LABS: HAV RESULT Negative (Negative); Hepatitis B Core IgM Result Negative (Negative)
[2022-05-13] MEDS: ATORVASTATIN 20 MG TABLET PO (21:35)
[2022-05-13] MEDS: PRAMIPEXOLE 1 MG TABLET 3 MG PO (21:35)
[2022-05-13 22:02] LABS: Glucose Point of Care 255 mg/dl (65-105)
[2022-05-13 22:12] LABS: Hepatitis C Virus Antibody Negative (Negative)
[2022-05-14] MEDS: LACTATED RINGERS 1,000 ML 75 ML IV CONT ×2 (04:39→20:39)
[2022-05-14 05:56] LABS: Hematocrit 28.2 % (37.0-47.0); Hemoglobin 8.9 g/dL (12.0-15.0); Mean Corpuscular HGB Conc 31.6 g/dl (32-36); Mean Corpuscular Hemoglobin 29.8 pg (26-34); Mean Corpuscular Volume 94.3 fl (80-100); Platelet Count Result 267 k/mm3 (150-375); Red Blood Count 2.99 M/mm3 (4.2-5.4); Red Cell Distribution Width 14.9 % (11.5-14.5); White Blood Count 5.4 K/mm3 (4.5-10.0)
[2022-05-14 06:00] VITALS: BP 128/63; PULSE 69; RESP 18; TEMP 36.4; O2SAT 99
[2022-05-14 06:01] LABS: Alanine Aminotransferase 27 U/L (6-35); Albumin Level 3.3 g/dL (3.5-5.1); Alkaline Phosphatase 126 U/L (38-126); Anion Gap 3 mmol/L (8-16); Aspartate Amino Transferase 27 U/L (14-36); Bilirubin,Total 0.4 mg/dL (0.2-1.3); Blood Urea Nitrogen 7 mg/dL (7-17); Calcium 9.3 mg/dL (8.4-10.2); Carbon Dioxide 25 mmol/L (22-30); Chloride 105 mmol/L (98-107); Estimated CRCL calculation 97 ml/min; Estimated Glomerular Filt Rate > 60; Glucose 123 mg/dL (65-110); Magnesium 1.9 mg/dL (1.6-2.3); Phosphorus 1.6 mg/dL (2.5-4.5); Potassium 3.5 mmol/L (3.4-5.0); Sodium 133 mmol/L (137-145)
[2022-05-14] MEDS: glipiZIDE 5 MG TABLET PO (08:39)
[2022-05-14] MEDS: metFORMIN HCL 500 MG TABLET PO (08:39)
[2022-05-14] MEDS: DULoxetine HCL 30 MG CAPSULE.DR PO (08:39)
[2022-05-14] MEDS: APIXABAN 5 MG TABLET PO ×2 (08:39→20:56)
[2022-05-14 08:53] LABS: Glucose Point of Care 114 mg/dl (65-105)
[2022-05-14] MEDS: ACETAMINOPHEN 325 MG TABLET 650 MG PO (10:20)
[2022-05-14 12:11] LABS: Glucose Point of Care 260 mg/dl (65-105)
[2022-05-14] MEDS: traMADol HCL (*CRX) 50 MG TABLET PO ×2 (12:29→18:41)
[2022-05-14] MEDS: INSULIN ASPART (*BKC) 100 UNITS/ML SUB-Q ×2 (12:30→17:58)
--- NOTE | 2022-05-14 12:32 | PM.IMPN ---
Progress Note: A&P Assessment and Plan (1) DKA (diabetic ketoacidosis): Code(s): E11.10 - Type 2 diabetes mellitus with ketoacidosis without coma Status: Acute Assessment and Plan: patient presented with recurrent DKA secondary to noncompliance UA and chest x-ray negative her anion gap has now closed and symptoms improved continue Lantus and change sliding scale to q.a.c. HS replace potassium and phosphate diabetic diet HPI-Narrative: This is 71 year female patient who has a history of diabetes and has frequent admissions the hospital for DKA.? Patient was last discharged on at 05/08/2022.? The patient stated that her daughter is currently in [place] and is not able to help take care of her at this time and will be out of town for at least 2-3 more days.? The patient has told me in the past that she does not want to monitor her blood sugar take the insulin.? It was reported in her discharge summary the patient was willing to take diabetic pills daily and they were going to trial glipizide with meals.? The patient also stated on her discharge that she was willing to take her Lantus.? And the patient was going to discuss Trulicity with her primary care doctor. However today the patient came into the emergency room with complaints of feeling weak and EMS found that her blood sugar was high it.? The patient refused to take insulin on an outpatient basis.? The patient denied any chest pain or difficulty breathing.? Her pH is 7.153 pCO2 17.9 PO2 is 113.4 bicarb 6.1.? Her sodium 132.? Her blood glucose on the chemistry was 1005 and is now down to 226.? The patient was started on the DKA protocol on an insulin drip.? Her blood pressure is slightly low at 98/45.? The patient has a complaint of right leg pain.? She has a history of DVT to the right leg and states that she does take her Eliquis.? She also has a history of a PE as well. 05/14/2022 interval history: 71-year-old female with history of diabetes, pulmonary emboli, and recurrent DKA presented to emergency department with hyperglycemia and was found to have DKA, patient was aggressively hydrated and insulin infusion was started and admitted in ICU, patient's blood sugars have trended down patient is now off the insulin drip and now on glizide, and metformin as well as on long acting insulin and sliding scale, patient has a recurrent history of DKA and noncompliance with her medical management, this seems to be underlying psychiatric illness, patient was seen Dr. Darling, Psychiatrist and evaluated the patient discussed patient does have deprssion and started patient on cymbalta, also patient c/o lower extremities pain, most likely patient has diabetes neuropathy, will start patient on gabapentin, and further recommendation to follow, will have a PT OT evaluate the and will monitor. (2) Non compliance w medication regimen: Code(s): Z91.14 - Patient's other noncompliance with medication regimen Status: Acute Assessment and Plan: this has been discussed multiple times with the patient and unfortunately patient claims that she will take her insulin regularly prior to discharge and then goes home and does not take her insulin or checks her blood sugar regularly will revisit this issue prior to discharge as patient is clinically better (3) Acute kidney injury: Code(s): N17.9 - Acute kidney failure, unspecified Status: Acute Assessment and Plan: secondary to dehydration hypovolemia and DKA resolved with IV fluids replace low potassium and phosphate monitor urine output electrolytes and creatinine (4) Hyperkalemia: Code(s): E87.5 - Hyperkalemia Status: Acute Assessment and Plan: secondary to JAMILA and hyperglycemia resolved with IV fluids and IV insulin (5) DVT (deep venous thrombosis): Code(s): I82.409 - Acute embolism and thrombosis of unspecified deep veins of unspecified lower extremity Status: Acute Assessment an
[2022-05-14 13:22] LABS: Rapid Plasma Reagin Non-Reactive (NonReactive)
[2022-05-14 14:00] VITALS: BP 135/75; PULSE 77; RESP 18; TEMP 36.3; O2SAT 100
[2022-05-14] MEDS: GABAPENTIN 300 MG CAPSULE PO ×2 (14:17→18:03)
[2022-05-14 17:22] LABS: Glucose Point of Care 260 mg/dl (65-105)
[2022-05-14] MEDS: INSULIN GLARGINE (*BKC) 100 UNITS/ML 20 UNITS SUB-Q (17:59)
[2022-05-14 19:38] VITALS: BP 118/64; PULSE 71; RESP 18; TEMP 36.5; O2SAT 100
[2022-05-14] MEDS: ATORVASTATIN 20 MG TABLET PO (20:56)
[2022-05-14] MEDS: PRAMIPEXOLE 1 MG TABLET 3 MG PO (20:56)
[2022-05-14 22:08] LABS: Glucose Point of Care 229 mg/dl (65-105)
[2022-05-15 04:04] VITALS: BP 104/60; PULSE 63; RESP 18; TEMP 37.2; O2SAT 98
[2022-05-15 05:37] LABS: Hematocrit 28.8 % (37.0-47.0); Hemoglobin 9.2 g/dL (12.0-15.0); Mean Corpuscular HGB Conc 31.9 g/dl (32-36); Mean Corpuscular Hemoglobin 30.1 pg (26-34); Mean Corpuscular Volume 94.1 fl (80-100); Mean Platelet Volume 9.1 fl (7.4-10.4); Platelet Count Result 235 k/mm3 (150-375); Red Blood Count 3.06 M/mm3 (4.2-5.4); Red Cell Distribution Width 14.9 % (11.5-14.5); White Blood Count 3.8 K/mm3 (4.5-10.0)
[2022-05-15 05:41] LABS: Alanine Aminotransferase 25 U/L (6-35); Albumin Level 3.1 g/dL (3.5-5.1); Alkaline Phosphatase 115 U/L (38-126); Anion Gap 4 mmol/L (8-16); Aspartate Amino Transferase 23 U/L (14-36); Bilirubin,Total 0.3 mg/dL (0.2-1.3); Blood Urea Nitrogen 9 mg/dL (7-17); Carbon Dioxide 26 mmol/L (22-30); Chloride 102 mmol/L (98-107); Estimated CRCL calculation 97 ml/min; Estimated Glomerular Filt Rate > 60; Glucose 149 mg/dL (65-110); Magnesium 1.8 mg/dL (1.6-2.3); Phosphorus 2.6 mg/dL (2.5-4.5); Potassium 3.7 mmol/L (3.4-5.0); Sodium 132 mmol/L (137-145)
[2022-05-15 08:26] LABS: Glucose Point of Care 148 mg/dl (65-105)
[2022-05-15] MEDS: DULoxetine HCL 30 MG CAPSULE.DR PO (09:30)
[2022-05-15] MEDS: GABAPENTIN 300 MG CAPSULE PO ×3 (09:30→16:59)
[2022-05-15] MEDS: APIXABAN 5 MG TABLET PO ×2 (09:30→20:45)
[2022-05-15] MEDS: glipiZIDE 5 MG TABLET PO (09:31)
[2022-05-15] MEDS: metFORMIN HCL 500 MG TABLET PO (09:31)
[2022-05-15] MEDS: traMADol HCL (*CRX) 50 MG TABLET PO ×2 (09:33→20:52)
[2022-05-15] MEDS: LACTATED RINGERS 1,000 ML 75 ML IV CONT ×2 (10:12→23:01)
--- NOTE | 2022-05-15 11:52 | PM.IMPN ---
Progress Note: A&P Assessment and Plan (1) DKA (diabetic ketoacidosis): Code(s): E11.10 - Type 2 diabetes mellitus with ketoacidosis without coma Status: Acute Assessment and Plan: patient presented with recurrent DKA secondary to noncompliance UA and chest x-ray negative her anion gap has now closed and symptoms improved continue Lantus and change sliding scale to q.a.c. HS replace potassium and phosphate diabetic diet HPI-Narrative: This is 71 year female patient who has a history of diabetes and has frequent admissions the hospital for DKA.? Patient was last discharged on at 05/08/2022.? The patient stated that her daughter is currently in [place] and is not able to help take care of her at this time and will be out of town for at least 2-3 more days.? The patient has told me in the past that she does not want to monitor her blood sugar take the insulin.? It was reported in her discharge summary the patient was willing to take diabetic pills daily and they were going to trial glipizide with meals.? The patient also stated on her discharge that she was willing to take her Lantus.? And the patient was going to discuss Trulicity with her primary care doctor. However today the patient came into the emergency room with complaints of feeling weak and EMS found that her blood sugar was high it.? The patient refused to take insulin on an outpatient basis.? The patient denied any chest pain or difficulty breathing.? Her pH is 7.153 pCO2 17.9 PO2 is 113.4 bicarb 6.1.? Her sodium 132.? Her blood glucose on the chemistry was 1005 and is now down to 226.? The patient was started on the DKA protocol on an insulin drip.? Her blood pressure is slightly low at 98/45.? The patient has a complaint of right leg pain.? She has a history of DVT to the right leg and states that she does take her Eliquis.? She also has a history of a PE as well. 05/15/2022 interval history: 71-year-old female with history of diabetes, pulmonary emboli, and recurrent DKA presented to emergency department with hyperglycemia and was found to have DKA, patient was aggressively hydrated and insulin infusion was started and admitted in ICU, patient's blood sugars have trended down patient is now off the insulin drip and now on glipizide, and metformin as well as on long acting insulin and sliding scale, patient has a recurrent history of DKA due to noncompliance with her medical management, this seems to be underlying psychiatric illness, patient was seen Dr. Darling, Psychiatrist and evaluated the patient discussed patient does have depressions and started patient on Cymbalta, also on 05/14 patient c/o lower extremities pain, most likely patient has diabetes neuropathy, started patient on gabapentin, and today patient stats her pain is better will continue to monitor and further recommendation to follow, will have a PT OT evaluate the patient, possibly discharge tomorrow, (2) Non compliance w medication regimen: Code(s): Z91.14 - Patient's other noncompliance with medication regimen Status: Acute Assessment and Plan: this has been discussed multiple times with the patient and unfortunately patient claims that she will take her insulin regularly prior to discharge and then goes home and does not take her insulin or checks her blood sugar regularly will revisit this issue prior to discharge as patient is clinically better (3) Acute kidney injury: Code(s): N17.9 - Acute kidney failure, unspecified Status: Acute Assessment and Plan: secondary to dehydration hypovolemia and DKA resolved with IV fluids replace low potassium and phosphate monitor urine output electrolytes and creatinine (4) Hyperkalemia: Code(s): E87.5 - Hyperkalemia Status: Acute Assessment and Plan: secondary to JAMILA and hyperglycemia resolved with IV fluids and IV insulin (5) DVT (deep venous thrombosis): Code(s): I82.409 - Acute embolism and thro
[2022-05-15 11:56] LABS: Glucose Point of Care 249 mg/dl (65-105)
[2022-05-15] MEDS: INSULIN ASPART (*BKC) 100 UNITS/ML SUB-Q ×2 (12:37→17:07)
[2022-05-15 14:35] VITALS: BP 132/71; PULSE 68; RESP 16; TEMP 36.7; O2SAT 99
[2022-05-15 16:44] LABS: Glucose Point of Care 306 mg/dl (65-105)
[2022-05-15] MEDS: INSULIN GLARGINE (*BKC) 100 UNITS/ML 20 UNITS SUB-Q (17:08)
[2022-05-15 19:56] VITALS: BP 129/61; PULSE 71; RESP 17; TEMP 36.2; O2SAT 98
[2022-05-15] MEDS: ATORVASTATIN 20 MG TABLET PO (20:45)
[2022-05-15] MEDS: PRAMIPEXOLE 1 MG TABLET 3 MG PO (20:45)
[2022-05-15 21:13] LABS: Glucose Point of Care 245 mg/dl (65-105)
[2022-05-16 03:55] LABS: Hematocrit 31.2 % (37.0-47.0); Hemoglobin 9.8 g/dL (12.0-15.0); Mean Corpuscular HGB Conc 31.4 g/dl (32-36); Mean Corpuscular Hemoglobin 29.8 pg (26-34); Mean Corpuscular Volume 94.8 fl (80-100); Mean Platelet Volume 9.4 fl (7.4-10.4); Platelet Count Result 236 k/mm3 (150-375); Red Blood Count 3.29 M/mm3 (4.2-5.4); Red Cell Distribution Width 14.6 % (11.5-14.5); White Blood Count 3.3 K/mm3 (4.5-10.0)
[2022-05-16 03:57] VITALS: BP 113/53; PULSE 59; RESP 18; TEMP 36.6; O2SAT 98
[2022-05-16 04:03] LABS: Alanine Aminotransferase 25 U/L (6-35); Albumin Level 3.2 g/dL (3.5-5.1); Alkaline Phosphatase 103 U/L (38-126); Anion Gap 1 mmol/L (8-16); Aspartate Amino Transferase 27 U/L (14-36); Bilirubin,Total 0.4 mg/dL (0.2-1.3); Blood Urea Nitrogen 10 mg/dL (7-17); Calcium 9.4 mg/dL (8.4-10.2); Carbon Dioxide 34 mmol/L (22-30); Chloride 100 mmol/L (98-107); Estimated CRCL calculation 134 ml/min; Estimated Glomerular Filt Rate > 60; Glucose 86 mg/dL (65-110); Magnesium 1.9 mg/dL (1.6-2.3); Phosphorus 3.2 mg/dL (2.5-4.5); Potassium 3.8 mmol/L (3.4-5.0); Sodium 135 mmol/L (137-145)
[2022-05-16 07:56] LABS: Glucose Point of Care 58 mg/dl (65-105)
[2022-05-16] MEDS: GLUCOSE ORAL GEL 15 GM OF GLUCSE IN 37.5 GM TUBE PO ×2 (08:02→08:26)
[2022-05-16 08:06] VITALS: BP 141/61; RESP 61; O2SAT 99
[2022-05-16] MEDS: APIXABAN 5 MG TABLET PO (08:09)
[2022-05-16] MEDS: GABAPENTIN 300 MG CAPSULE PO ×3 (08:09→17:27)
[2022-05-16] MEDS: DULoxetine HCL 30 MG CAPSULE.DR PO (08:09)
[2022-05-16 08:24] LABS: Glucose Point of Care 68 mg/dl (65-105)
[2022-05-16 08:49] LABS: Glucose Point of Care 124 mg/dl (65-105)
[2022-05-16] MEDS: metFORMIN HCL 500 MG TABLET PO (09:29)
[2022-05-16] MEDS: LACTATED RINGERS 1,000 ML 75 ML IV CONT (09:29)
[2022-05-16] MEDS: traMADol HCL (*CRX) 50 MG TABLET PO (10:38)
[2022-05-16 12:14] LABS: Glucose Point of Care 224 mg/dl (65-105)
[2022-05-16] MEDS: INSULIN ASPART (*BKC) 100 UNITS/ML SUB-Q ×2 (12:34→17:27)
--- NOTE | 2022-05-16 14:44 | P.DS_ITS ---
DS: Admitting Diagnosis Discharge Date 05/16/2022 Admitting Diagnosis Nausea vomiting and elevated blood sugar DS: Discharge Diagnosis Discharge Diagnosis (1) DKA (diabetic ketoacidosis): Code(s): E11.10 - Type 2 diabetes mellitus with ketoacidosis without coma Status: Acute Assessment and Plan: patient presented with recurrent DKA secondary to noncompliance UA and chest x-ray negative her anion gap has now closed and symptoms improved continue Lantus and change sliding scale to q.a.c. HS replace potassium and phosphate diabetic diet HPI-Narrative: This is 71 year female patient who has a history of diabetes and has frequent admissions the hospital for DKA.? Patient was last discharged on at 05/08/2022.? The patient stated that her daughter is currently in [place] and is not able to help take care of her at this time and will be out of town for at least 2-3 more days.? The patient has told me in the past that she does not want to monitor her blood sugar take the insulin.? It was reported in her discharge summary the patient was willing to take diabetic pills daily and they were going to trial glipizide with meals.? The patient also stated on her discharge that she was willing to take her Lantus.? And the patient was going to discuss Trulicity with her primary care doctor. However today the patient came into the emergency room with complaints of feeling weak and EMS found that her blood sugar was high it.? The patient refused to take insulin on an outpatient basis.? The patient denied any chest pain or difficulty breathing.? Her pH is 7.153 pCO2 17.9 PO2 is 113.4 bicarb 6.1.? Her sodium 132.? Her blood glucose on the chemistry was 1005 and is now down to 226.? The patient was started on the DKA protocol on an insulin drip.? Her blood pressure is slightly low at 98/45.? The patient has a complaint of right leg pain.? She has a history of DVT to the right leg and states that she does take her Eliquis.? She also has a history of a PE as well. 05/15/2022 interval history: 71-year-old female with history of diabetes, pulmonary emboli, and recurrent DKA presented to emergency department with hyperglycemia and was found to have DKA, patient was aggressively hydrated and insulin infusion was started and admitted in ICU, patient's blood sugars have trended down patient is now off the insulin drip and now on glipizide, and metformin as well as on long acting insulin and sliding scale, patient has a recurrent history of DKA due to noncompliance with her medical management, this seems to be underlying psychiatric illness, patient was seen Dr. Darling, Psychiatrist and evaluated the patient discussed patient does have depressions and started patient on Cymbalta, also on 05/14 patient c/o lower extremities pain, most likely patient has diabetes neuropathy, started patient on gabapentin, and today patient stats her pain is better will continue to monitor and further recommendation to follow, will have a PT OT evaluate the patient, possibly discharge tomorrow, (2) Non compliance w medication regimen: Code(s): Z91.14 - Patient's other noncompliance with medication regimen Status: Acute Assessment and Plan: this has been discussed multiple times with the patient and unfortunately patient claims that she will take her insulin regularly prior to discharge and then goes home and does not take her insulin or checks her blood sugar regularly will revisit this issue prior to discharge as patient is clinically better (3) Acute kidney injury: Code(s): N17.9 - Acute kidney failure, unspecified Status: Acute Assessment and Plan: secondary to dehydration hypovolemia and DKA resolved wit
[2022-05-16 14:46] VITALS: BP 153/79; PULSE 82; RESP 16; TEMP 36.3; O2SAT 99
[2022-05-16 16:42] LABS: Glucose Point of Care 227 mg/dl (65-105)
[2022-05-18 05:52] LABS: C-Peptide <0.10 ng/mL (0.80-3.85)
== END 2022-05-16 18:40 | disposition home or self-care (01) | DRG 638 ==
LOC: ANHED 06:53 → ANHICU 09:23 → ANHCPC 05-13 10:22 → ANH2MED 05-14 08:56 → ANHCPC 05-18 10:33 → ANHICU 05-18 10:33
PROVIDERS: Internal Medicine; Psychiatry & Neurology Psychiatry; Admitting Provider Internal Medicine; Emergency Provider Emergency Medicine; PCP Family Medicine; Visit Provider Family Medicine
DX: E11.10 Type 2 diabetes mellitus with ketoacidosis without coma (principal); F32.1 Major depressive disorder, single episode, moderate; I82.411 Acute embolism and thrombosis of right femoral vein; N17.9 Acute kidney failure, unspecified; E11.40 Type 2 diabetes mellitus with diabetic neuropathy, unspecified; E87.5 Hyperkalemia; G25.81 Restless legs syndrome; T38.3X6A Underdosing of insulin and oral hypoglycemic [antidiabetic] drugs, initial encounter; Z86.711 Personal history of pulmonary embolism; Z91.128 Patient's intentional underdosing of medication regimen for other reason; Z79.01 Long term (current) use of anticoagulants
CPT/HCPCS: 36415; 36600; 51702; 71045; 80048; 80053; 80074; 81003; 82010; 82306; 82375; 82607; 82746; 82805; 82948; 83050; 83605; 83735; 84100; 84681; 85025; 85027; 86592; 86703; 87040; 93005; 99285; A9270; G0432; J1815; J2405; J3480; J7030; J7050; J7120

== ENCOUNTER 2022-05-24 13:21 | Emergency (ER) | payer MEDICARE, OTHER, SELFPAY ==
[2022-05-24] VITALS (23 sets, daily range): BP systolic 110–151; BP diastolic 55–77; PULSE 70–107; RESP 16–18; TEMP 36.6–37.3; O2SAT 94–100
[2022-05-24 13:34] LABS: Glucose Point of Care > 450 mg/dl (65-105)
--- NOTE | 2022-05-24 13:58 | ED.GENADULT ---
HPI - General Adult General Chief complaint: Recheck/Abnormal Lab/Rx Stated complaint: high blood sugar Time Seen by Provider: 05/24/22 13:47 Source: patient Mode of arrival: wheelchair Limitations: no limitations History of Present Illness HPI narrative: 71-year-old female, smoker with a prior history of alcoholism, depression, ovarian cancer status post hysterectomy, RLS, anxiety, DVT / PE, diabetes mellitus with multiple episodes of diabetic ketoacidosis secondary to noncompliance was admitted from -- 03/25/2022 to 03/29/2022 for DKA to [facility] -- 04/07/2022 to [facility] for hyperosmolar nonketotic state, acute renal insufficiency -- 04/20/2022 to 04/29/2022 for diabetic ketoacidosis and acute renal failure -- 10/2022 to 05/08/2022 for diabetic ketoacidosis the patient was wheeled in from the outpatient clinic with - increased fatigue and thirst - increased urination - spasms of the right upper extremity which she has had on multiple occasions in the past - blood sugars greater than 500 the patient did not take morning insulin secondary to weakness. Onset (ago): day(s) ( Symptoms started today.) Associated symptoms: malaise and weakness Treatments prior to arrival: none Related Data Home Medications Medication Instructions Recorded Confirmed acetaminophen 325 mg tablet (Mapap 650 mg PO Q4H PRN Pain, Mild 04/20/22 05/24/22 (acetaminophen)) pramipexole 1.5 mg tablet 3 mg PO HS 05/12/22 05/24/22 tramadol 50 mg tablet 50 mg PO Q6H PRN Pain, Moderate 05/12/22 05/24/22 Allergies Allergy/AdvReac Type Severity Reaction Status Date / Time banana Allergy Severe SEVERE Verified 05/24/22 13:36 HIVES aspirin AdvReac Intermediate Nausea and Verified 05/24/22 13:36 Vomiting fluoxetine [From Prozac] AdvReac Hallucinati Verified 05/24/22 13:36 ng Review of Systems Review of Systems: All systems reviewed & are unremarkable except as noted in HPI and below Constitutional: Constitutional: Reports as per HPI, Reports no additional constitutional complaints, Reports fatigue and Reports weakness Eyes: Eyes: Reports as per HPI and Reports no additional eye complaints ENT: Reports system reviewed and no additional complaints, except as documented and Reports as per HPI Cardiovascular: Cardiovascular: Reports as per HPI and Reports no additional cardiovascular complaints Respiratory: Respiratory: Reports as per HPI and Reports no additional respiratory complaints Gastrointestinal: Gastrointestinal: Reports as per HPI and Reports no additional gastrointestinal complaints Genitourinary: Genitourinary: Reports no additional female genitourinary complaints and Reports as per HPI Musculoskeletal: Musculoskeletal: Reports no additional musculoskeletal complaints and Reports as per HPI Integumentary/Breasts: Skin/Breast: Reports system reviewed and no additional complaints, except as docu and Reports as per HPI Neurologic: Reports system reviewed and no additional complaints, except as documented and Reports as per HPI Comments: Spasms of the right upper extremity Psychiatric: Psychiatric: Reports no additional psychiatric complaints and Reports anxiety Endocrine: Endocrine: Reports no additional endocrine complaints and Reports as per HPI Hematologic/Lymphatic: Hematologic/Lymphatic: Reports no additional hematologic/lymphatic complaints and Reports as per HPI Allergic/Immunologic: Allergic/Immunologic: Reports no additional allergic/immunologic complaints and Reports as per HPI [facility] Past Medical History Medical History Depression Diabetic peripheral neuropathy Fibromyalgia Hypothyroidism Memory change Ovarian cancer At the age of 33, status post hysterectomy. Patient states that half an ovary was left during surgery. She required no further treatment. Pneumonia due to COVID-19 virus (09/2020) Pulmonary embol
--- NOTE | 2022-05-24 13:59 | ECG_ITS ---
Measurements Intervals [place] Rate: 61 P: 76 AL: 197 QRS: 57 QRSD: 91 T: 41 QT: 379 QTc: 384 Interpretive Statements SINUS RHYTHM WITH MARKED SINUS ARRHYTHMIA BORDERLINE ST ABNORMALITY- ANTEROLAT/INF LEADS BORDERLINE ECG COMPARED TO ECG 05/12/2022 07:38:57 SINUS RHYTHM NOW PRESENT SINUS ARRHYTHMIA NOW PRESENT Electronically Signed On 05-24-2022 15:46:50 CDT by Unruly Panchal D.O.
[2022-05-24] MEDS: SODIUM CHLORIDE 0.9% IV 1,000 ML 999 ML IV CONT ×2 (14:04→15:26)
[2022-05-24] MEDS: INSULIN HUMAN REGULAR (*BKC) 1,000 UNITS/10 ML VIAL 5 UNITS IV PUSH (14:08)
[2022-05-24 14:27] LABS: Basophils Absolute Auto 0.04 K/mm3 (0.00-0.10); Basophils Percent Auto 0.6 % (0.0-1.0); Eosinophils Absolute Auto 0.08 K/mm3 (0.02-0.50); Eosinophils Percent Auto 1.2 % (1.0-6.0); Hematocrit 37.2 % (35.0-42.0); Hemoglobin 11.5 g/dL (11.7-13.8); Immature Granulocyte Absolute 0.03 K/mm3 (0.00-0.00); Immature Granulocyte Percent A 0.4 % (0.0-0.0); Lymphocytes Absolute Auto 1.08 K/mm3 (1.10-4.50); Lymphocytes Percent Auto 15.6 % (18.0-42.0); Mean Corpuscular HGB Conc 30.9 g/dL (32.0-36.0); Mean Corpuscular Volume 97.1 fL (78.0-102.0); Mean Platelet Volume 9.3 fl (9.2-11.8); Monocytes Absolute Auto 0.24 K/mm3 (0.10-0.90); Monocytes Percent Auto 3.5 % (2.0-11.0); Neutrophils Absolute Auto 5.4 K/mm3 (1.7-7.2); Neutrophils Percent Auto 78.7 % (50.0-70.0); Platelet Count Result 448 K/mm3 (150-420); Red Blood Count 3.83 M/mm3 (4.20-5.40); Red Cell Distribution Width 14.7 % (11.6-14.4); White Blood Count 6.9 K/mm3 (4.8-10.8)
[2022-05-24 14:51] LABS: Alanine Aminotransferase 33 U/L (14-59); Albumin Level 4.1 g/dL (3.4-5.0); Alkaline Phosphatase 196 U/L (46-116); Anion Gap 21 mmol/L (8-16); Aspartate Amino Transferase 15 U/L (15-37); Bilirubin,Total 0.5 mg/dL (0.00-1.00); Blood Urea Nitrogen 46 mg/dL (7-18); Calcium 11.1 mg/dL (8.5-10.1); Carbon Dioxide 17 mmol/L (21-32); Chloride 90 mmol/L (98-108); Estimated Glomerular Filt Rate 49; Lipase 37 U/L (16-77); Sodium 128 mmol/L (136-145); Troponin I 17.1 ng/L (0.00-60.4)
[2022-05-24 14:54] LABS: Lactic Acid Reflex 1.8 mmol/L (0.4-2.0)
[2022-05-24 14:56] LABS: Potassium 6.6 mmol/L (3.5-5.1)
[2022-05-24 15:07] LABS: Bilirubin Urine Negative (Negative); Blood Urine Trace-Intact (Negative); Glucose Urine UA 3+ (Negative); Ketones Urine 3+ (Negative); Leukocyte Esterase Ur 2+ LEU/UL (Negative); Nitrate Urine Negative (Negative); Protein Urine Negative (Negative); Specific Grav Ur 1.015 (1.010-1.020); Urobilinogen Urine 0.2 mg/dL (0.2-1.0); pH Urine 5.5 (5.0-8.0)
[2022-05-24 15:08] LABS: Glucose > 800 mg/dL (70-99); Osmolality Calculated 317 mOsm/kg (285-295)
[2022-05-24] MEDS: ALBUTEROL SULFATE NEB 2.5 MG/3 ML INH 10 MG INHALATION (15:13)
[2022-05-24 15:16] LABS: Add Urine Microscopic? YES; Appearance Urine Cloudy (Clear); Color Urine Yellow (Yellow); RBC Urine 0-2 /hpf (0-2)
[2022-05-24 15:17] LABS: Bacteria Urine 1+ /hpf; Squamous Epithelial Cell Urine Rare /hpf (Few); WBC Urine 21-30 /hpf (0-3)
[2022-05-24] MEDS: INSULIN HUMAN REGULAR (*BKC) 1,000 UNITS/10 ML VIAL 10 UNITS IV PUSH ×2 (15:23→17:45)
[2022-05-24] MEDS: SODIUM BICARBONATE 8.4% 50 MEQ/50 ML SYRINGE IV PUSH (15:28)
[2022-05-24] MEDS: CALCIUM GLUC 1,000 MG/NS 50 ML 1,000 MG/50 ML BAG 100 MG IVPB (15:33)
[2022-05-24 17:27] LABS: Glucose Point of Care > 450 mg/dl (65-105)
[2022-05-24] MEDS: SODIUM CHLORIDE 0.9% IV 500 ML 999 ML IV CONT (17:44)
[2022-05-24 19:22] LABS: Glucose Point of Care > 450 mg/dl (65-105)
[2022-05-24 21:44] LABS: Glucose Point of Care > 450 mg/dl (65-105)
--- NOTE | 2022-05-26 13:20 | PC.NURSE ---
final urine culture report reviewed. mixed genital raúl isolated. these superficial bacteria are not indicative of a urinary tract infection. no change in plan of care
== END 2022-05-24 20:22 | disposition short-term general hospital (02) ==
PROVIDERS: Emergency Provider Internal Medicine Critical Care Medicine; PCP Family Medicine
DX: E11.10 Type 2 diabetes mellitus with ketoacidosis without coma (principal); E87.5 Hyperkalemia; N17.9 Acute kidney failure, unspecified; E03.9 Hypothyroidism, unspecified; Z79.891 Long term (current) use of opiate analgesic; Z85.43 Personal history of malignant neoplasm of ovary; Z91.14 Patient's other noncompliance with medication regimen
CPT/HCPCS: 36415; 80053; 81001; 82948; 83605; 83690; 84484; 85025; 87086; 87088; 93005; 94640; 96361; 96365; 96375; 96376; 99285; J0610; J0696; J1815; J7030; J7040

== ENCOUNTER 2022-05-24 21:00 | Inpatient (IN) | payer MEDICARE, OTHER, SELFPAY ==
[2022-05-24 21:00] VITALS: BP 119/84; PULSE 75; RESP 16; TEMP 36.7; O2SAT 98
[2022-05-24 21:05] VITALS: BMI 21.0
[2022-05-24 21:44] LABS: Glucose Point of Care 497 mg/dl (65-105)
--- NOTE | 2022-05-24 21:45 | PM.IMHP ---
H&P: HPI History of Present Illness Date/Time: 05/24/22 21:45 Chief Complaint: Diabetic ketoacidosis. Narrative: This is a 71-year-old female with insulin-dependent diabetes, hypertension, hyperlipidemia, and hypothyroidism who is being directly admitted to the ICU from the emergency department at the [facility] after she once again was found to be in diabetic ketoacidosis after presenting with high blood sugars. She is well known to myself and the hospitalist service from multiple admissions for the same. In fact this will be the 15th time that she has been admitted at this facility for DKA since November 2021. She had been hospitalized at other facilities for DKA in that same time frame as well. She was last discharged from this facility on 05/16/2022. She purportedly takes her basal insulin at home however she is not always compliant with her mealtime insulin for unclear reasons. She goes on to say that her glucose typically runs high and she feels as though a glucose of 300 is good. Today she had a follow-up appoint with her primary care provider and her glucose yet again was high and she was sent to the ER. Labs on arrival to the ED were significant for sodium of 128, potassium 6.6, chloride 90, carbon dioxide 17, BUN 46, creatinine 1.11, glucose greater than 800, lactic acid 1.8, calcium 11.1. Urine was positive for 3+ glucose and 4+ ketones. She was hydrated, started on insulin drip, and has been transferred to the ICU for further treatment of diabetic ketoacidosis. At the time my evaluation complains of extreme thirst and blurry vision. She denies fever, chills, sweats, headaches, chest pain, shortness a breath, nausea, vomiting, diarrhea, and dysuria. Review of Systems Review of Systems: Twelve systems were reviewed and are negative except for as per HPI. [facility] Past Medical History Medical History Chronic anticoagulation Depression Diabetic peripheral neuropathy Fibromyalgia Hypothyroidism Memory change Ovarian cancer At the age of 33, status post hysterectomy. Patient states that half an ovary was left during surgery. She required no further treatment. Pneumonia due to COVID-19 virus (09/2020) Pulmonary emboli Restless leg syndrome Shingles Type 2 diabetes mellitus Hemoglobin A1c was > 14% August 2021 C-peptide 0.63. Surgical History Surgical History History of tonsillectomy (1970) History of total hysterectomy with bilateral salpingo-oophorectomy (BSO) (1983) History of tubal ligation (1983) Family History Family History Grandparent Family history of premature coronary heart disease, Onset Age: 64 Father Family history of respiratory disorder, Onset Age: 87 Family history of cardiovascular disease Patient's father is Family history of Alzheimer's disease Cerebrovascular accident Mother Family history of primary malignant neoplasm of liver, Onset Age: 64 Family history of malignant neoplasm Patient's mother is , Onset Age: 64 Family history of malignant neoplasm of breast in first degree relative Sibling Heart attack Sibling Heart attack Social History Social History Social History: The patient is . She lives in her own home in [place], [place]. Her daughter Mary used to live with her but isn't currently however the patient stated that her daughter is going to move back in with her. She has 2 daughters, and designates her daughter Jose Posey, as her surrogate decision maker. She is a lifelong nonsmoker. She drinks perhaps 4-12 alcoholic beverages a week. No drug use. The patient tells me that she does not drink anymore. Code status: Full code. Smoking status: Never smoker Second hand tobacco smoke
[2022-05-24] MEDS: SODIUM CHLORIDE 0.9% IV 1,000 ML 150 ML IV CONT (21:48)
[2022-05-24] MEDS: PRAMIPEXOLE 1 MG TABLET 3 MG PO (21:50)
[2022-05-24] MEDS: GABAPENTIN 300 MG CAPSULE PO (21:50)
[2022-05-24] MEDS: APIXABAN 5 MG TABLET PO (21:51)
[2022-05-24] MEDS: ATORVASTATIN 20 MG TABLET PO (21:51)
[2022-05-24 22:00] VITALS: BP 150/74; PULSE 73; PULSE 74; RESP 23; O2SAT 100
[2022-05-24 22:23] LABS: Anion Gap 22 mmol/L (8-16); Blood Urea Nitrogen 29 mg/dL (7-17); Calcium 10.5 mg/dL (8.4-10.2); Carbon Dioxide 10 mmol/L (22-30); Chloride 102 mmol/L (98-107); Estimated CRCL calculation 63 ml/min; Estimated Glomerular Filt Rate > 60; Glucose 516 mg/dL (65-110); Magnesium 2.1 mg/dL (1.6-2.3); Phosphorus 4.6 mg/dL (2.5-4.5); Potassium 5.3 mmol/L (3.4-5.0); Sodium 134 mmol/L (137-145)
[2022-05-24 22:24] LABS: Hemoglobin A1C > 14.0 % (<5.7)
[2022-05-24 22:26] LABS: Appearance Urine Clear (Clear); Bilirubin Urine Negative (Negative); Blood Urine Negative (Negative); Color Urine Yellow (Yellow); Glucose Urine UA 3+ mg/dL (Negative); Ketones Urine 4+ mg/dL (Negative); Leukocyte Esterase Ur Negative LEU/UL (NEGATIVE); Nitrate Urine Negative (Negative); Protein Urine Negative (Negative); Urobilinogen Urine 0.2 mg/dL (<2.0)
[2022-05-24] MEDS: INSULIN HUMAN REGULAR (*BKC) 100 UNITS in SODIUM CHLORIDE 0.9% IV 99 ML 8.7 UNITS IV CONT (22:31)
[2022-05-24 22:37] LABS: Glucose Point of Care 490 mg/dl (65-105)
[2022-05-24 22:40] LABS: Add Urine Microscopic? YES
[2022-05-24 23:45] LABS: Glucose Point of Care 399 mg/dl (65-105)
[2022-05-25] VITALS (11 sets, daily range): BP systolic 97–143; BP diastolic 47–77; PULSE 66–90; RESP 12–23; TEMP 36.2–36.8; O2SAT 95–100; BMI 21.0; BMI 21.1
[2022-05-25 00:34] LABS: Glucose Point of Care 295 mg/dl (65-105)
[2022-05-25] MEDS: KCL 20 MEQ/D5/0.45% SOD CHL 1,000 ML 150 ML IV CONT (01:29)
[2022-05-25 01:33] LABS: Glucose Point of Care 212 mg/dl (65-105)
[2022-05-25 02:05] LABS: Anion Gap 12 mmol/L (8-16); Blood Urea Nitrogen 24 mg/dL (7-17); Calcium 10.3 mg/dL (8.4-10.2); Carbon Dioxide 20 mmol/L (22-30); Chloride 107 mmol/L (98-107); Estimated CRCL calculation 76 ml/min; Estimated Glomerular Filt Rate > 60; Glucose 218 mg/dL (65-110); Potassium 3.7 mmol/L (3.4-5.0); Sodium 139 mmol/L (137-145)
[2022-05-25 02:36] LABS: Glucose Point of Care 171 mg/dl (65-105)
[2022-05-25 03:38] LABS: Glucose Point of Care 139 mg/dl (65-105)
[2022-05-25 04:31] LABS: Anion Gap 3 mmol/L (8-16); Blood Urea Nitrogen 23 mg/dL (7-17); Calcium 10.1 mg/dL (8.4-10.2); Carbon Dioxide 26 mmol/L (22-30); Chloride 109 mmol/L (98-107); Estimated CRCL calculation 97 ml/min; Estimated Glomerular Filt Rate > 60; Glucose 121 mg/dL (65-110); Potassium 3.9 mmol/L (3.4-5.0); Sodium 138 mmol/L (137-145)
[2022-05-25 04:36] LABS: Glucose Point of Care 116 mg/dl (65-105)
[2022-05-25] MEDS: INSULIN GLARGINE (*BKC) 100 UNITS/ML 20 UNITS SUB-Q ×2 (05:45→20:15)
[2022-05-25 05:49] LABS: Glucose Point of Care 93 mg/dl (65-105)
[2022-05-25 06:35] LABS: Glucose Point of Care 98 mg/dl (65-105)
[2022-05-25] MEDS: SODIUM CHLORIDE 0.45% 1,000 ML 75 ML IV CONT ×2 (08:31→20:43)
--- NOTE | 2022-05-25 08:44 | WPDCNINT ---
Assessment and Plan Assessment and plan (1) DKA (diabetic ketoacidosis): Code(s): E11.10 - Type 2 diabetes mellitus with ketoacidosis without coma Status: Acute Assessment and Plan: Secondary to noncompliance Her WBC was normal, UA and chest x-ray unremarkable Anion gap has now closed I have transition patient from IV insulin to Lantus and subQ with meal insulin Start diabetic diet (2) Chronic anticoagulation: Code(s): Z79.01 - [facility] (current) use of anticoagulants Status: Acute Assessment and Plan: Continue Eliquis (3) Acute kidney injury: Code(s): N17.9 - Acute kidney failure, unspecified Status: Acute Assessment and Plan: Improved with IV fluids and creatinine has normalized Monitor urine output electrolytes and creatinine (4) Non compliance w medication regimen: Code(s): Z91.14 - Patient's other noncompliance with medication regimen Status: Acute Assessment and Plan: I had long discussion patient again and encouraged to stay compliant with her medications especially insulin. She states her daughter has gone to [place] although she was not compliant even when her daughter was here staying with her. I mentioned to patient option of assisted living and she stated that she will discuss this with lpn care manager. (5) Dehydration: Code(s): E86.0 - Dehydration Status: Acute Assessment and Plan: Improved with IV fluids Plan DVT prophylaxis -Eliquis Nutrition -consistent carbohydrate diet Code Status - Full Code Transfer out of ICU today [employer] Consult Note Consult date: 05/25/22 Reason for consult: DKA HPI: Karly Leslie is a 71 year old female with past medical history of poorly-controlled type 2 diabetes which was diagnosed in March of 2019 and noncompliance with insulin with multiple frequent admissions to ER with DKA presented to [facility] yesterday with chief complaint of elevated blood sugar.? Patient was discharged few days ago on 05/16 after treatment for DKA. she was supposed to take glipizide, metformin and Lantus.? Patient presented to ER with chief complaint of fatigue thirst increased urination and elevated blood sugars on her blood sugar on her accu check machine. She was found to having blood glucose of more than 800 potassium was 6.6 creatinine 1.1 and metabolic acidosis. She was diagnosed with DKA and transferred to [facility] ICU for further care. She was given IV fluid bolus and started on IV insulin infusion. This morning patient states that she is feeling much better denies any complaints. She states the symptoms have completely resolved and she would like to eat food. She admitted to be not taking her insulin regularly at home. When asked her for the reason she was unable to give any. Patient denies fever, chest pain, shortness of breath, cough, nausea vomiting, abdominal pain,, diarrhea, headache or constipation. All other systems were reviewed and were negative Review of Systems Review of Systems: All systems reviewed & are unremarkable except as noted in HPI and below (HPI) [facility] Past Medical History Medical History Chronic anticoagulation Depression Diabetic peripheral neuropathy Fibromyalgia Hypothyroidism Memory change Ovarian cancer At the age of 33, status post hysterectomy. Patient states that half an ovary was left during surgery. She required no further treatment. Pneumonia due to COVID-19 virus (09/2020) Pulmonary emboli Restless leg syndrome Shingles Type 2 diabetes mellitus Hemoglobin A1c was > 14% August 2021 C-peptide 0.63. Surgical History Surgical History History of tonsillectomy (1970) History of total hysterectomy with bilateral salpingo-oophorectomy (BSO) (1983) History of tubal ligation (1983) Family History Family History (Reviewed 05/25/22 @ 08
[2022-05-25 12:23] LABS: Glucose Point of Care 136 mg/dl (65-105)
[2022-05-25] MEDS: GABAPENTIN 300 MG CAPSULE PO ×2 (13:46→16:52)
[2022-05-25] MEDS: APIXABAN 5 MG TABLET PO ×2 (13:46→16:52)
[2022-05-25] MEDS: DULoxetine HCL 30 MG CAPSULE.DR PO (13:46)
[2022-05-25 16:49] LABS: Glucose Point of Care 182 mg/dl (65-105)
[2022-05-25] MEDS: ACETAMINOPHEN 325 MG TABLET 650 MG PO (16:52)
[2022-05-25 20:04] LABS: Glucose Point of Care 320 mg/dl (65-105)
[2022-05-25] MEDS: ATORVASTATIN 20 MG TABLET PO (20:15)
[2022-05-25] MEDS: PRAMIPEXOLE 1 MG TABLET 3 MG PO (20:15)
[2022-05-25] MEDS: INSULIN ASPART (*BKC) 100 UNITS/ML 6 UNITS SUB-Q (20:40)
[2022-05-26] VITALS (11 sets, daily range): BP systolic 109–137; BP diastolic 58–83; PULSE 63–95; RESP 16–17; TEMP 36.3–36.7; O2SAT 97–100
[2022-05-26 06:26] LABS: Hemoglobin 10.1 g/dL (12.0-15.0); Mean Corpuscular HGB Conc 31.6 g/dl (32-36); Mean Corpuscular Hemoglobin 29.4 pg (26-34); Mean Platelet Volume 9.1 fl (7.4-10.4); Platelet Count Result 386 k/mm3 (150-375); Red Blood Count 3.44 M/mm3 (4.2-5.4); Red Cell Distribution Width 14.5 % (11.5-14.5); White Blood Count 5.4 K/mm3 (4.5-10.0)
[2022-05-26 06:44] LABS: Alanine Aminotransferase 20 U/L (6-35); Albumin Level 3.4 g/dL (3.5-5.1); Alkaline Phosphatase 124 U/L (38-126); Anion Gap 7 mmol/L (8-16); Aspartate Amino Transferase 23 U/L (14-36); Bilirubin,Total 0.4 mg/dL (0.2-1.3); Blood Urea Nitrogen 12 mg/dL (7-17); Calcium 9.1 mg/dL (8.4-10.2); Carbon Dioxide 23 mmol/L (22-30); Chloride 101 mmol/L (98-107); Estimated CRCL calculation 97 ml/min; Estimated Glomerular Filt Rate > 60; Glucose 95 mg/dL (65-110); Magnesium 1.9 mg/dL (1.6-2.3); Potassium 3.3 mmol/L (3.4-5.0); Sodium 131 mmol/L (137-145)
[2022-05-26 07:38] LABS: Glucose Point of Care 97 mg/dl (65-105)
[2022-05-26] MEDS: APIXABAN 5 MG TABLET PO ×2 (09:29→17:57)
[2022-05-26] MEDS: GABAPENTIN 300 MG CAPSULE PO ×3 (09:29→17:57)
[2022-05-26] MEDS: DULoxetine HCL 30 MG CAPSULE.DR PO (09:29)
--- NOTE | 2022-05-26 10:57 | PM.IMPN ---
Progress Note: A&P Assessment and Plan (1) Type 2 diabetes mellitus with hyperglycemia: Code(s): E11.65 - Type 2 diabetes mellitus with hyperglycemia Status: Acute Assessment and Plan: Patient is noncompliant with her insulin regimen. Apparently she is supposed to take mealtime insulin but she says she forgets to take it. She was admitted again with DKA. A1c is greater than 14. Patient has been on scheduled Lantus along with sliding scale insulin. Sugars are elevated. Will start her on scheduled Humalog 7 units t.i.d. with meals (2) Chronic anticoagulation: Code(s): Z79.01 - assisted (current) use of anticoagulants Status: Acute Assessment and Plan: Continue apixaban (3) DKA (diabetic ketoacidosis): Code(s): E11.10 - Type 2 diabetes mellitus with ketoacidosis without coma Status: Acute (4) Non compliance w medication regimen: Code(s): Z91.14 - Patient's other noncompliance with medication regimen Status: Acute Subjective Date/time seen: 05/26/22 10:57 Patient reports some anxiety. No other complaints at this time. Review of Systems Review of Systems: All systems reviewed & are unremarkable except as noted in HPI and below (HPI) Exam Narrative: General:?Nontoxic-appearing female in the semi-Trevino position in bed. Weight: 49 kg. BMI: 21.1. HEENT:?PERRL, EOMI. Sclera anicteric. Dry mucous membranes. Neck:??Supple. Respiratory:?Lungs are clear to auscultation bilaterally. Cardiovascular:??Regular rate and rhythm with S1-S2. Gastrointestinal:??Abdomen is soft, nontender, and nondistended with positive bowel sounds. Skin:??Warm and dry. Extremities:??No cyanosis or clubbing. Peripheral pulses palpable. Neurological:??Alert.? Cranial nerves 2-12 are grossly intact. No gross focal deficits to casual conversation. Psychiatric:?Cooperative. Flat mood and affect. Objective Data Vital Signs Vital Signs: Vital Signs - 24 hr 05/25/22 12:00 05/25/22 12:00 05/25/22 17:08 Temperature 97.2 F L Pulse Rate 71 71 90 Respiratory Rate 20 Blood Pressure 103/72 Pulse Oximetry 97 Oxygen Delivery 05/25/22 17:09 05/25/22 20:10 05/25/22 20:00 Temperature 98.2 F Pulse Rate 90 72 72 Respiratory Rate 20 18 18 Blood Pressure 139/76 134/76 Pulse Oximetry 99 98 98 Oxygen Delivery Room Air 05/26/22 00:00 05/26/22 00:00 05/26/22 01:06 Temperature 98.1 F 97.4 F L Pulse Rate 69 73 66 Respiratory Rate 17 16 Blood Pressure 126/67 109/77 Pulse Oximetry 97 100 Oxygen Delivery 05/26/22 00:50 05/26/22 05:09 05/26/22 04:00 Temperature 97.9 F Pulse Rate 66 63 66 Respiratory Rate 16 16 Blood Pressure 114/58 L Pulse Oximetry 100 97 Oxygen Delivery Room Air 05/26/22 08:00 Temperature Pulse Rate 69 Respiratory Rate Blood Pressure Pulse Oximetry Oxygen Delivery Intake/Output Intake/Output: Intake & Output 05/23/22 05/24/22 05/25/22 05/26/22 23:59 23:59 23:59 23:59 Intake Total 2400 / 2400 490 / 490 Output Total 600 / 600 600 / 600 Balance -600 / -600 1800 / 1800 490 / 490 Meds/Results Medications: Active Medications Generic Name Dose Route Start Last Admin Trade Name Freq PRN Reason Stop Dose Admin Acetaminophen 650 mg 05/24/22 21:35 05/25/22 16:52 Acetaminophen 325 Mg Tablet PO 650 mg Q4H PRN Administration Pain Rated 1-3 Apixaban 5 mg 05/24/22 21:45 05/26/22 09:29 Apixaban 5 Mg Tablet PO 5 mg BID DANIEL Administration Atorvastatin Calcium 20 mg 05/24/22 21:45 05/25/22 20:15 Atorvastatin 20 Mg Tablet PO 20 mg HS DANIEL Administration Dextrose 12.5 gm 05/24/22 21:33 Dextrose 50% 25 Gm/50 Ml Syringe IV PUSH PRN PRN Hypoglycemia Protocol Duloxetine HCl 30 mg 05/25/22 09:00 05/26/22 09:29 Duloxetine Hcl 30 Mg Capsule.Dr PO 30 mg QAM DANIEL Administration Gabapentin 300 mg 05/24/22 21:45 05/26/22 09:29 Gabapentin 300 Mg Capsul
[2022-05-26 11:27] LABS: Glucose Point of Care 233 mg/dl (65-105)
[2022-05-26] MEDS: INSULIN ASPART (*BKC) 100 UNITS/ML 7 UNITS SUB-Q ×2 (12:48→17:57)
[2022-05-26 16:18] LABS: Glucose Point of Care 231 mg/dl (65-105)
[2022-05-26 20:37] LABS: Glucose Point of Care 279 mg/dl (65-105)
[2022-05-26] MEDS: INSULIN GLARGINE (*BKC) 100 UNITS/ML 20 UNITS SUB-Q (22:20)
[2022-05-26] MEDS: ATORVASTATIN 20 MG TABLET PO (22:20)
[2022-05-26] MEDS: PRAMIPEXOLE 1 MG TABLET 3 MG PO (22:21)
[2022-05-27] VITALS: PULSE 78
[2022-05-27 04:00] VITALS: PULSE 79
[2022-05-27 05:30] VITALS: BP 126/74; PULSE 70; RESP 16; TEMP 36.2; O2SAT 96
[2022-05-27 06:26] LABS: Hematocrit 31.6 % (37.0-47.0); Hemoglobin 9.9 g/dL (12.0-15.0); Mean Corpuscular HGB Conc 31.3 g/dl (32-36); Mean Corpuscular Hemoglobin 29.3 pg (26-34); Mean Corpuscular Volume 93.5 fl (80-100); Mean Platelet Volume 8.9 fl (7.4-10.4); Platelet Count Result 340 k/mm3 (150-375); Red Blood Count 3.38 M/mm3 (4.2-5.4); Red Cell Distribution Width 14.6 % (11.5-14.5); White Blood Count 4.2 K/mm3 (4.5-10.0)
[2022-05-27] MEDS: ACETAMINOPHEN 325 MG TABLET 650 MG PO (06:26)
[2022-05-27 06:36] LABS: Alanine Aminotransferase 23 U/L (6-35); Albumin Level 3.2 g/dL (3.5-5.1); Alkaline Phosphatase 118 U/L (38-126); Anion Gap 6 mmol/L (8-16); Aspartate Amino Transferase 30 U/L (14-36); Bilirubin,Total 0.3 mg/dL (0.2-1.3); Blood Urea Nitrogen 11 mg/dL (7-17); Calcium 8.8 mg/dL (8.4-10.2); Carbon Dioxide 24 mmol/L (22-30); Chloride 103 mmol/L (98-107); Estimated CRCL calculation 97 ml/min; Estimated Glomerular Filt Rate > 60; Glucose 256 mg/dL (65-110); Magnesium 2.1 mg/dL (1.6-2.3); Potassium 3.7 mmol/L (3.4-5.0); Sodium 133 mmol/L (137-145)
[2022-05-27 07:43] LABS: Glucose Point of Care 264 mg/dl (65-105)
[2022-05-27 08:00] VITALS: PULSE 66
[2022-05-27] MEDS: APIXABAN 5 MG TABLET PO (08:23)
[2022-05-27] MEDS: DULoxetine HCL 30 MG CAPSULE.DR PO (08:23)
[2022-05-27] MEDS: GABAPENTIN 300 MG CAPSULE PO (08:23)
[2022-05-27] MEDS: INSULIN ASPART (*BKC) 100 UNITS/ML 7 UNITS SUB-Q (08:23)
--- NOTE | 2022-05-27 09:50 | PM.DS ---
DS: Admitting Diagnosis Discharge Date 05/27/22 Admitting Diagnosis DKA DS: Discharge Diagnosis Discharge Diagnosis (1) DKA (diabetic ketoacidosis): Code(s): E11.10 - Type 2 diabetes mellitus with ketoacidosis without coma Status: Acute (2) Severe hyperglycemia due to diabetes mellitus: Code(s): E11.65 - Type 2 diabetes mellitus with hyperglycemia Status: Acute DS: Summary Hospital Course Hospital Course: (1) Type 2 diabetes mellitus with hyperglycemia: ?Code(s): E11.65 - Type 2 diabetes mellitus with hyperglycemia ?Status:?Acute ?Assessment and Plan: Patient is noncompliant with her insulin regimen.? Apparently she is supposed to take mealtime insulin but she says she forgets to take it.? She was admitted again with DKA.? A1c is greater than 14.? Patient has been on scheduled Lantus along with sliding scale insulin.? Sugars are elevated.? Will start her on scheduled Humalog 10 units t.i.d. with meals and continue 30 units lantus at bedtime. (2) Chronic anticoagulation: ?Code(s): Z79.01 - FPC (current) use of anticoagulants ?Status:?Acute ?Assessment and Plan: Continue apixaban (3) DKA (diabetic ketoacidosis): ?Code(s): E11.10 - Type 2 diabetes mellitus with ketoacidosis without coma ?Status:?Acute (4) Non compliance w medication regimen: ?Code(s): Z91.14 - Patient's other noncompliance with medication regimen ?Status:?Acute Time Spent with Patient Time attestation: Total time spent providing and/or coordinating discharge services: Exam Narrative: General:?Nontoxic-appearing female in the semi-Trevino position in bed. Weight: 49 kg. BMI: 21.1. HEENT:?PERRL, EOMI. Sclera anicteric. Dry mucous membranes. Neck:??Supple. Respiratory:?Lungs are clear to auscultation bilaterally. Cardiovascular:??Regular rate and rhythm with S1-S2. Gastrointestinal:??Abdomen is soft, nontender, and nondistended with positive bowel sounds. Skin:??Warm and dry. Extremities:??No cyanosis or clubbing. Peripheral pulses palpable. Neurological:??Alert.? Cranial nerves 2-12 are grossly intact. No gross focal deficits to casual conversation. Psychiatric:?Cooperative. Flat mood and affect. DS: Data Data Completed and Pending Labs on day of discharge: Labs from last 24 hours 05/27/22 05/27/22 05/27/22 07:30 06:16 06:16 WBC 4.2 L RBC 3.38 L Hgb 9.9 L Hct 31.6 L MCV 93.5 MCH 29.3 MCHC 31.3 L RDW 14.6 H Plt Count 340 MPV 8.9 Sodium 133 L Potassium 3.7 Chloride 103 Carbon Dioxide 24 Anion Gap 6 L BUN 11 Creatinine 0.30 L Estim Creat Clear Calc 97 Estimated GFR > 60 Glucose 256 H POC Capillary Glucose 264 H Calcium 8.8 Magnesium 2.1 Total Bilirubin 0.3 AST 30 ALT 23 Alkaline Phosphatase 118 Total Protein 6.0 L Albumin 3.2 L 05/26/22 05/26/22 05/26/22 20:35 16:02 11:07 WBC RBC Hgb Hct MCV MCH MCHC RDW Plt Count MPV Sodium Potassium Chloride Carbon Dioxide Anion Gap BUN Creatinine Estim Creat Clear Calc Estimated GFR Glucose POC Capillary Glucose 279 H 231 H 233 H Calcium Magnesium Total Bilirubin AST ALT Alkaline Phosphatase Total Protein Albumin Discharge Plan Discharge Consulting providers: Kee Miles Discharging Clinician: Eliseo Dorado Anticipated Discharge Date/Time: 05/27/22 09:43 Patient Disposition: Home Health Service Activity: may shower Diet: diabetic Discharge Instructions: Per Care Coordination. Patient to resume [facility] services when stable. [phone]. RN please fax discharge instructions to: F: [phone] Home Health RN please work on medication compliance. Patient reports not always taking medications as prescribed. Patient Instructions: Antibiotic Form, Basic Carbohydrate Counting (DC) Stand
== END 2022-05-27 11:30 | disposition home health service (06) | DRG 638 ==
LOC: ANHICU 05-25 14:40 → ANH3MEDSUR 05-26 01:00
PROVIDERS: Internal Medicine; Physician Assistant; Admitting Provider Student in an Organized Health Care Education/Training Program; PCP Family Medicine; Visit Provider Hospitalist
DX: E11.10 Type 2 diabetes mellitus with ketoacidosis without coma (principal); N17.9 Acute kidney failure, unspecified; E11.65 Type 2 diabetes mellitus with hyperglycemia; Z91.14 Patient's other noncompliance with medication regimen; E78.5 Hyperlipidemia, unspecified; E11.42 Type 2 diabetes mellitus with diabetic polyneuropathy; E83.52 Hypercalcemia; M79.7 Fibromyalgia; E03.9 Hypothyroidism, unspecified; E86.0 Dehydration; G25.81 Restless legs syndrome; Z86.711 Personal history of pulmonary embolism; Z79.01 Long term (current) use of anticoagulants; Z85.43 Personal history of malignant neoplasm of ovary; Z86.16 Personal history of COVID-19; Z90.710 Acquired absence of both cervix and uterus; Z78.9 Other specified health status
CPT/HCPCS: 36415; 80048; 80053; 81001; 82948; 83036; 83735; 84100; 85027; A9270; J1815; J3480; J7030

== ENCOUNTER 2022-06-10 17:55 | Observation (INO) | payer MEDICARE, OTHER, SELFPAY ==
[2022-06-10] VITALS (49 sets, daily range): BP systolic 48–106; BP diastolic 24–74; PULSE 68–101; RESP 13–40; TEMP 36.2; O2SAT 91–100
--- NOTE | ~2022-06-10 | CT_ITS ---
EXAMINATION: CT brain wo con INDICATION: Unresponsive patient COMPARISON: 04/25/2022 TECHNIQUE: Standard unenhanced head CT. The dose-length product (DLP) was 605.33 mGy-cm. The mA was a djusted according to patient size. Iterative reconstruction technique was employed. FINDINGS: There is no acute intraparenchymal hemorrhage. No evidence of mass lesion. No evidence of a cute infarction. There is mild periventricular and subcortical hypodensity probably related to small vessel ischemic disease. There is mild prominence of the sulci and ventricles related to cerebral atr ophy. Intracranial calcified cerebral atherosclerosis is noted. There are no extra-axial collections. There is no mass effect or midline shift. The orbits and soft tissues are unremarkable. The visualiz ed sinuses and mastoid air cells are well aerated. IMPRESSION: 1. No acute intracranial abnormality. 2. Age related findings. Reviewed, dictated and finalized at location A.
[2022-06-10] MEDS: SODIUM CHLORIDE 0.9% IV 1,000 ML 999 ML IV CONT ×2 (18:00→18:42)
[2022-06-10] MEDS: EPINEPHrine INJ 1 MG/10 ML SYRINGE IV PUSH (18:03)
[2022-06-10] MEDS: ATROPINE SULFATE 1 MG/ML VIAL IV PUSH (18:04)
[2022-06-10] MEDS: SODIUM BICARBONATE 8.4% 50 MEQ/50 ML SYRINGE IV PUSH ×3 (18:30→18:38)
[2022-06-10] MEDS: LACTATED RINGERS 1,000 ML 999 ML IV CONT ×2 (18:30→19:26)
[2022-06-10 18:33] LABS: Hematocrit 42.2 % (35.0-42.0); Hemoglobin 11.1 g/dL (11.7-13.8); Mean Corpuscular HGB Conc 26.3 g/dL (32.0-36.0); Mean Corpuscular Hemoglobin 30.1 pg (27.0-31.0); Mean Corpuscular Volume 114.4 fL (78.0-102.0); Mean Platelet Volume 10.9 fl (9.2-11.8); Platelet Count Result 417 K/mm3 (150-420); Red Blood Count 3.69 M/mm3 (4.20-5.40)
[2022-06-10] MEDS: EPINEPHrine INJ 1 MG/10 ML SYRINGE 0.2 MG IV PUSH (18:34)
[2022-06-10 18:39] LABS: INR 1.1; Prothrombin Time 11.9 Seconds (9.50-12.10)
[2022-06-10] MEDS: CALCIUM CHLORIDE 1,000 MG/10 ML SYRINGE 1000 MG IV PUSH ×2 (18:40→19:11)
[2022-06-10 18:42] LABS: Alanine Aminotransferase 37 U/L (14-59); Albumin Level 3.9 g/dL (3.4-5.0); Alkaline Phosphatase 168 U/L (46-116); Anion Gap 40 mmol/L (8-16); Aspartate Amino Transferase 45 U/L (15-37); Bilirubin,Total 0.4 mg/dL (0.00-1.00); Blood Urea Nitrogen 79 mg/dL (7-18); Calcium 10.4 mg/dL (8.5-10.1); Carbon Dioxide 8 mmol/L (21-32); Chloride 83 mmol/L (98-108); Estimated Glomerular Filt Rate 18; Magnesium 4.4 mg/dL (1.8-2.4); Total Protein 7.5 g/dL (6.4-8.2)
[2022-06-10 18:47] LABS: White Blood Count 28.3 K/mm3 (4.8-10.8)
[2022-06-10 18:51] LABS: Estimated CRCL calculation 12 ml/min
[2022-06-10 18:52] LABS: Ethanol < 3 mg/dL (0-6); Glucose > 800 mg/dL (70-99); Osmolality Calculated 335 mOsm/kg (285-295); Sodium 131 mmol/L (136-145)
--- NOTE | 2022-06-10 18:57 | PC.NURSE ---
1840 seizure noted for 30 sec
[2022-06-10 19:08] LABS: Band Neutrophils Percent 2 % (0-6); Basophils Percent Manual 0 % (0-1); Eosinophils Percent Manual 0 % (1-6); Lymphocytes Absolute Manual 4.81 K/mm3 (1.1-4.5); Lymphocytes Percent Manual 17 % (18-44); Metamyelocytes Percent 3 %; Monocytes Absolute Manual 0.84 K/mm3 (0.1-0.90); Monocytes Percent Manual 3 % (3-9); Myelocytes Percent 3 %; Neutrophils Absolute Manual 20.94 K/mm3 (1.7-7.2); Neutrophils Percent Manual 72 % (46-73); Platelet Estimate Adequate (Adequate); Total Cells Counted 100
--- NOTE | 2022-06-10 19:11 | ED.GENADULT ---
HPI - General Adult General Chief complaint: Altered Mental Status Stated complaint: ambulance History of Present Illness HPI narrative: 72yo woman DNR/DNI with full medical treatment (confirmed with her daughter Mary Posey who is the healthcare decision surrogate/next of kin on the phone today) known diabetic nonadherent to therapy who was found unresponsive by a neighbor who called EMS. EMS found pt comatose with spontaneous respirations and they loaded while performing BVM ventilations. On arrival pt GCS 3 with no sign of trauma, SpO2 100%, blood glucose high. Resuscitation over the next hour and a half consisted of NRB oxygen as pt was taking spontaneous Kussmaul respirations, 2L NS bolus, 2L LR bolus, 3 pushes NaBicarb, 2g CaCl, 1 mg Atropine, two push dose pressor Epinephrine (100 mcg and 200 mcg respectively), 4 unit insulin bolus, 5 units/hr insulin gtt started. Pt was observed to seize tonic clonic once for about one minute, no emesis. WBC 28. K+ 8.0. Blood glucose 1400. Emergent transfer to [place]. Related Data Home Medications Medication Instructions Recorded Confirmed insulin glargine-yfgn 100 unit/mL 20 unit subcut 06/10/22 (3 mL) subcutaneous pen (Semglee (insulin glargine-yfgn) Pen) Allergies Allergy/AdvReac Type Severity Reaction Status Date / Time banana Allergy Severe SEVERE Verified 06/10/22 21:34 HIVES aspirin AdvReac Intermediate Nausea and Verified 06/10/22 21:34 Vomiting fluoxetine [From Prozac] AdvReac Hallucinati Verified 06/10/22 21:34 ng Review of Systems Review of Systems: ROS unobtainable: Yes unobtainable due to medical condition and unobtainable due to mental status [facility] Past Medical History Medical History Chronic anticoagulation Depression Diabetic peripheral neuropathy Fibromyalgia Hypothyroidism Memory change Ovarian cancer At the age of 33, status post hysterectomy. Patient states that half an ovary was left during surgery. She required no further treatment. Pneumonia due to COVID-19 virus (09/2020) Pulmonary emboli Restless leg syndrome Shingles Type 2 diabetes mellitus Hemoglobin A1c was > 14% August 2021 C-peptide 0.63. Surgical History Surgical History History of tonsillectomy (1970) History of total hysterectomy with bilateral salpingo-oophorectomy (BSO) (1983) History of tubal ligation (1983) Family History Family History Grandparent Family history of premature coronary heart disease, Onset Age: 64 Father Family history of respiratory disorder, Onset Age: 87 Family history of cardiovascular disease Patient's father is Family history of Alzheimer's disease Cerebrovascular accident Mother Family history of primary malignant neoplasm of liver, Onset Age: 64 Family history of malignant neoplasm Patient's mother is , Onset Age: 64 Family history of malignant neoplasm of breast in first degree relative Sibling Heart attack Sibling Heart attack Social History Social History Social History: The patient is . She lives in her own home in [place], [place]. Her daughter Mary used to live with her but isn't currently however the patient stated that her daughter is going to move back in with her. She has 2 daughters, and designates her daughter Jose Posey, as her surrogate decision maker. She is a lifelong nonsmoker. She drinks perhaps 4-12 alcoholic beverages a week. No drug use. The patient tells me that she does not drink anymore. Code status: Full code. Smoking status: Never smoker Second hand tobacco smoke exposure: No Alcohol intake: unknown Substance use: unknown Substance use type: does not use Lack of Transportation: No Lack of Food: Never True
[2022-06-10] MEDS: INSULIN HUMAN REGULAR (*BKC) 1,000 UNITS/10 ML VIAL 4 UNITS IV PUSH (19:13)
[2022-06-10] MEDS: INSULIN REG 100 UNITS/100 ML 100 UNITS/100 ML BAG IV CONT (19:14)
[2022-06-10 19:42] LABS: HCO3 VBG 5.5 mEq/l (24.0-30.0); PO2 VBG 214.4 mmHg (35.0-45.0); pH VBG 7.04 (7.33-7.43)
[2022-06-10 19:43] LABS: PCO2 VBG 20.8 mmHg (42.0-48.0)
[2022-06-10 19:44] LABS: Device NON-REBREATHER MASK
[2022-06-10 20:09] LABS: Hemoglobin A1C > 13.7 % (<5.7)
[2022-06-10 20:17] LABS: Anion Gap 39 mmol/L (8-16); Blood Urea Nitrogen 76 mg/dL (7-18); Calcium 11.8 mg/dL (8.5-10.1); Carbon Dioxide 7 mmol/L (21-32); Chloride 95 mmol/L (98-108); Estimated CRCL calculation 14 ml/min; Estimated Glomerular Filt Rate 21; Osmolality Calculated 354 mOsm/kg (285-295); Potassium 5.9 mmol/L (3.5-5.1); Sodium 141 mmol/L (136-145)
[2022-06-10 20:18] LABS: Glucose > 800 mg/dL (70-99)
[2022-06-10 20:19] LABS: Phosphorus > 8.0 mg/dL (2.6-4.7)
[2022-06-10 20:35] LABS: Glucose Point of Care > 450 mg/dl (65-105)
--- NOTE | 2022-06-10 20:53 | PC.NURSE ---
Mary called to check on mom, explained to daughter about the central line,and aggressive care being done. Explained option of ICU vs hospice. Daughter request hospice care and be comfortable and kept here at [facility]
--- NOTE | 2022-06-10 21:00 | PC.NURSE ---
per MD Todd, stop insulin drip, cancel norepinephrine, and cefepime medication orders.
[2022-06-10] MEDS: LORazepam INJ (*CRX) 2 MG/ML VIAL IV PUSH (21:28)
--- NOTE | 2022-06-10 21:36 | PC.NURSE ---
MD Garces - unable to insert central line.
[2022-06-10 22:01] LABS: Glucose Point of Care > 450 mg/dl (65-105)
[2022-06-10 22:03] LABS: Reflex Lactic Acid Yes or No Add Lactic
[2022-06-10] MEDS: MORPHINE SULFATE (*CRX) 2 MG/ML INJ IV PUSH (22:37)
[2022-06-10 23:37] LABS: Lactic Acid 2.5 mmol/L (0.4-2.0)
[2022-06-10 23:41] LABS: Anion Gap 34 mmol/L (8-16); Blood Urea Nitrogen 79 mg/dL (7-18); Calcium 10.3 mg/dL (8.5-10.1); Carbon Dioxide 8 mmol/L (21-32); Chloride 98 mmol/L (98-108); Estimated CRCL calculation 14 ml/min; Estimated Glomerular Filt Rate 21; Potassium 6.1 mmol/L (3.5-5.1); Sodium 140 mmol/L (136-145)
[2022-06-10 23:49] LABS: Glucose > 800 mg/dL (70-99); Osmolality Calculated 353 mOsm/kg (285-295)
[2022-06-11] VITALS: BP 81/42; PULSE 82; TEMP 35.9; O2SAT 99
[2022-06-11 00:31] VITALS: BP 77/42; O2SAT 98
[2022-06-11] MEDS: INSULIN HUMAN LISPRO (*BKC) 1,000 UNITS/10 ML VIAL SUB-Q ×3 (00:37→08:41)
[2022-06-11] MEDS: LORazepam INJ (*CRX) 2 MG/ML VIAL IV PUSH ×4 (00:37→14:52)
[2022-06-11] MEDS: MORPHINE SULFATE (*CRX) 2 MG/ML INJ IV PUSH ×4 (01:39→14:52)
[2022-06-11 04:41] VITALS: BMI 22.8
--- NOTE | 2022-06-11 05:08 | ADMGEN ---
This patient, Karly Leslie, was admitted to 2nd Floor Room 210-1 for comfort care. Family was not present. Patient is unresponsive.
--- NOTE | 2022-06-11 07:24 | PC.NURSE ---
06/10/22 at 1830 spoke with POA and doctor spoke with POA pt has DNR paper work on chart
[2022-06-11 07:29] LABS: Glucose Point of Care > 450 mg/dl (65-105)
--- NOTE | 2022-06-11 07:32 | PC.NURSE ---
06/10/22 1820 pt had dried stool on arms and legs. soaked off with warm wash cloths clean gown applied pt arrived naked in a sheet
[2022-06-11 07:58] VITALS: BP 110/50; PULSE 88; RESP 28; TEMP 36.2; O2SAT 98
--- NOTE | 2022-06-11 11:09 | PM.IMHP ---
H&P: HPI History of Present Illness Date/Time: 06/11/22 11:09 Chief Complaint: DKA w Coma, Unresponsiveness, hypoxia Narrative: This is a 72 year old female that was found unresponsive and in DKA patient was hypotensive and given medication to revive her in the midst of working on patient family decided that they want patient to be a hospice patient and they wanted nothing else done. At this time patient has a Past medical history of diabetes, HLD, hypertension, depression, on anticoagulation unsure why at this time, neuropathy. Patient was given atropine, sodium bicarb, attempts were started to intubate when they found out patient was a DNR/DNI. Patient was found by neighbor unsure how long she was down. We will continue to keep patient comfortable. Called and discussed with patient ALDAIR and discussed what her wishes were and I wanted to confirm that she wanted. Mary informed me she still wants hospice and for us not to continue with the blood sugars or the insulin and to allow her mother to pass away peacefully. She would like hospice consulted. Review of Systems Review of Systems: DKA, Hyperkalemia, hypoxia, hypotenstion All systems reviewed & are unremarkable except as noted in HPI and below PMFSH Past Medical History Medical History (Updated 06/11/22 @ 11:14 by Chyna Kent NP) Chronic anticoagulation Depression Diabetic peripheral neuropathy DKA (diabetic ketoacidosis) Fibromyalgia Hypothyroidism Memory change Ovarian cancer At the age of 33, status post hysterectomy. Patient states that half an ovary was left during surgery. She required no further treatment. Pneumonia due to COVID-19 virus (09/2020) Pulmonary emboli Restless leg syndrome Shingles Type 2 diabetes mellitus Hemoglobin A1c was > 14% August 2021 C-peptide 0.63. Surgical History Surgical History History of tonsillectomy (1970) History of total hysterectomy with bilateral salpingo-oophorectomy (BSO) (1983) History of tubal ligation (1983) Family History Family History Grandparent Family history of premature coronary heart disease, Onset Age: 64 Father Family history of respiratory disorder, Onset Age: 87 Family history of cardiovascular disease Patient's father is Family history of Alzheimer's disease Cerebrovascular accident Mother Family history of primary malignant neoplasm of liver, Onset Age: 64 Family history of malignant neoplasm Patient's mother is , Onset Age: 64 Family history of malignant neoplasm of breast in first degree relative Sibling Heart attack Sibling Heart attack Social History Social History Social History: The patient is . She lives in her own home in [place], [place]. Her daughter Mary used to live with her but isn't currently however the patient stated that her daughter is going to move back in with her. She has 2 daughters, and designates her daughter Jose Posey, as her surrogate decision maker. She is a lifelong nonsmoker. She drinks perhaps 4-12 alcoholic beverages a week. No drug use. The patient tells me that she does not drink anymore. Code status: Full code. Smoking status: Never smoker Second hand tobacco smoke exposure: No Alcohol intake: unknown Substance use: unknown Substance use type: does not use Lack of Transportation: No Lack of Food: Never True Current Housing: I Have Housing Concerned About Future Housing: No Difficulty Paying Gas/Electric Bills: No Difficulty Paying for Meds: No Currently Unemployed: No Education: High School Diploma/GED Difficulty w/ Childcare or Family Care: No Living arrangements: alone Occupation/Education: retired Spiritual care concerns: No Meds Home Medications and Allergies Home Med
--- NOTE | 2022-06-11 11:14 | PC.NURSE ---
Patient has had no significant change in condition. T/P q 2 to prevent skin breakdown. Blood glucose remains elevated, and patient remains unresponsive. Patient appears to be comfortable at this time, with no moaning or grimacing. Will continue to monitor for comfort and medicate as needed.
[2022-06-11 11:38] LABS: Glucose Point of Care > 450 mg/dl (65-105)
--- NOTE | 2022-06-11 12:09 | PC.NURSE ---
daughter, jessica, called and wants to talk about mother's care. claims she understands what comfort care is and that the rest of family is not agreement and now requests everything thing to be done. claims she can not handle the guilt the rest of family is putting on her. phone call sent to sadie haji.
--- NOTE | 2022-06-11 12:18 | P.PNCROSS_ITS ---
Event Note Event Note Event Note: Daughter Mary just called patient POJustyna and she has stated she cannot take a ll of her family being mad at her and she would like for everything to be done for her mother at this time.
--- NOTE | 2022-06-11 12:20 | PM.EVENT ---
Event Note Event Note Event Note: Daughter Mary has called and she has stated that she is not able to take all of her family being mad at her for keeping her mother a DNR and doing nothing so she would now like for everything to be done for her mother. I did explain about this delay in care for her mother but I am here to support whatever decision she decides on and I will attempt to get her to another hospital
[2022-06-11] MEDS: SODIUM CHLORIDE 0.9% IV 1,000 ML 999 ML IV CONT (12:40)
[2022-06-11] MEDS: INSULIN REG 100 UNITS/100 ML 100 UNITS/100 ML BAG IV CONT (12:40)
[2022-06-11] MEDS: INSULIN HUMAN REGULAR (*BKC) 1,000 UNITS/10 ML VIAL 5 UNITS IV PUSH (12:42)
[2022-06-11 12:54] LABS: Base Excess ABG -10.7 mmol/L (0-2); Basophils Absolute Auto 0.02 K/mm3 (0.00-0.10); Basophils Percent Auto 0.2 % (0.0-1.0); HCO3 ABG 13.7 mmol/L (23-29); Hematocrit 33.2 % (35.0-42.0); Hemoglobin 10.4 g/dL (11.7-13.8); Immature Granulocyte Absolute 0.07 K/mm3 (0.00-0.00); Immature Granulocyte Percent A 0.7 % (0.0-0.0); Lymphocytes Absolute Auto 0.52 K/mm3 (1.10-4.50); Mean Corpuscular HGB Conc 31.3 g/dL (32.0-36.0); Mean Corpuscular Hemoglobin 29.2 pg (27.0-31.0); Mean Corpuscular Volume 93.3 fL (78.0-102.0); Mean Platelet Volume 10.1 fl (9.2-11.8); Monocytes Absolute Auto 0.27 K/mm3 (0.10-0.90); Monocytes Percent Auto 2.6 % (2.0-11.0); Neutrophils Absolute Auto 9.4 K/mm3 (1.7-7.2); Neutrophils Percent Auto 91.5 % (50.0-70.0); Nucleated Red Blood Cells Absolute Auto 0.03 K/mm3 (0.00-0.00); Nucleated Red Blood Cells Perc 0.3 % (0-0.0); Oxygen Content ABG 14.8 %vol (16.0-22.0); Oxygen Saturation ABG 92.7 % (95-97); PCO2 ABG 26.3 mmHg (35-45); PO2 ABG 79.8 mmHg (75-85); Platelet Count Result 283 K/mm3 (150-420); Red Blood Count 3.56 M/mm3 (4.20-5.40); Red Cell Distribution Width 15.3 % (11.6-14.4); Total Hemoglobin 11.5 g/dL (12.0-18.0); White Blood Count 10.3 K/mm3 (4.8-10.8); pH ABG 7.33 (7.35-7.45)
[2022-06-11 13:01] LABS: Device ROOM AIR; Modified Allen's Test Pass; Site Drawn LEFT BRACHIAL
[2022-06-11 13:05] LABS: Acetone Negative (Negative)
--- NOTE | 2022-06-11 13:06 | PC.NURSE ---
Insulin drip and fluids started. Bolus 5 units of IVP insulin administered per CONTROL SYSTEMS ENGINEER order. VS 99.2 102 93% 30 80/43 at this time. Patient resting comfortably.
[2022-06-11 13:08] VITALS: BP 80/43; PULSE 102; RESP 30; TEMP 37.3; O2SAT 93
[2022-06-11 13:10] LABS: Appearance Urine Cloudy (Clear); Bilirubin Urine 2+ (Negative); Blood Urine 3+ (Negative); Color Urine Yellow (Yellow); Glucose Urine UA 3+ (Negative); Ketones Urine 2+ (Negative); Leukocyte Esterase Ur Trace (Negative); Nitrate Urine Negative (Negative); Protein Urine 2+ (Negative); Specific Grav Ur 1.025 (1.010-1.020); Urobilinogen Urine 0.2 mg/dL (0.2-1.0); pH Urine 5.5 (5.0-8.0)
[2022-06-11 13:11] LABS: Lactic Acid Reflex 4.6 mmol/L (0.4-2.0)
[2022-06-11 13:16] LABS: Add Urine Microscopic? NO; RBC Urine 21-50 /hpf (0-2); Squamous Epithelial Cell Urine Few /hpf (Few)
[2022-06-11 13:17] LABS: Amorphous Sediment Urine Present; Bacteria Urine 1+ /hpf
[2022-06-11 13:18] LABS: Alanine Aminotransferase 378 U/L (14-59); Alkaline Phosphatase 156 U/L (46-116); Anion Gap 23 mmol/L (8-16); Bilirubin,Total 1.5 mg/dL (0.00-1.00); Blood Urea Nitrogen 95 mg/dL (7-18); Calcium 9.5 mg/dL (8.5-10.1); Carbon Dioxide 17 mmol/L (21-32); Chloride 105 mmol/L (98-108); Estimated CRCL calculation 10 ml/min; Estimated Glomerular Filt Rate 14; Potassium 5.3 mmol/L (3.5-5.1); Sodium 145 mmol/L (136-145)
[2022-06-11 13:19] LABS: Magnesium 2.6 mg/dL (1.8-2.4); Phosphorus 5.9 mg/dL (2.6-4.7)
[2022-06-11 13:21] LABS: Glucose 682 mg/dL (70-99); Osmolality Calculated 361 mOsm/kg (285-295)
[2022-06-11 13:22] LABS: Aspartate Amino Transferase > 796 U/L (15-37)
[2022-06-11 13:24] LABS: Hemoglobin A1C > 16.0 % (<5.7)
[2022-06-11 13:36] LABS: Troponin I 1886.2 ng/L (0.00-60.4)
--- NOTE | 2022-06-11 13:41 | ECG_ITS ---
Measurements Intervals [place] Rate: 99 P: 71 MO: 150 QRS: 46 QRSD: 92 T: -43 QT: 334 QTc: 429 Interpretive Statements SINUS RHYTHM ST DEVIATION AND MODERATE T-WAVE ABNORMALITY, CONSIDER LATERAL ISCHEMIA vs LVH ST DEVIATION AND MODERATE T-WAVE ABNORMALITY, CONSIDER INFERIOR ISCHEMIA vs. LVH COMPARED TO ECG 05/24/2022 14:11:[address] SEGMENT CHANGES ARE NEW. Electronically Signed On 06-11-2022 22:03:27 CDT by Kerry Sauceda M.D.
[2022-06-11] MEDS: LACTATED RINGERS 1,000 ML 999 ML IV CONT (13:54)
[2022-06-11 14:03] VITALS: BP 84/46; PULSE 112; RESP 32; O2SAT 94
--- NOTE | 2022-06-11 14:08 | PC.NURSE ---
Blood glucose still greater than 500. Patient still unresponsive.
[2022-06-11 14:10] LABS: Glucose Point of Care > 450 mg/dl (65-105)
--- NOTE | 2022-06-11 14:20 | PC.NURSE ---
daughter jessica is on phone. does not want her transfered to another hospital. does not any furthor treatment. asked her to explain what treatments she wanted wanted stopped and how to move furthor in her care. claims family made her feel guilty and she was thinking what would be best for mother. she wants her to comfortable and absolutely nothing done. transferred phone call to salesperson pets and pet supplies.
[2022-06-11 16:00] VITALS: BP 59/30; PULSE 103; RESP 24; TEMP 37.2; O2SAT 89
--- NOTE | 2022-06-11 17:45 | PC.NURSE ---
At 1537 group underwriter went into room and found patient with no respirations. Patient had no response to verbal or painful stimuli, No pupillary response to light, no breath sounds or respiratory effort, no palpable central pulse, and no audible heart sounds with 2 minutes of auscultation. Nursery Manager alerted charge nurse to change in condition and charge nurse verified findings. Patient's granddaughter and a friend had just entered the room with group underwriter at the time of . POA, daughter, Mary notified by phone of patient's passing.
--- NOTE | 2022-06-11 17:45 | PC.NURSE ---
Verbal permission to release the body obtained from Mary QUINTEROS.
--- NOTE | 2022-06-11 19:59 | PC.NURSE ---
Home came and took body to [facility]. Granddaughter and Daughter were notified.
--- NOTE | 2022-06-12 10:11 | P.DN_ITS ---
Discharge Summary Date and Time Date of : 06/11/22 Time of : 17:35 Provider Pronounced By: Cheryl Nunez Probable Cause of Probable Cause of : cardiac arrest, respiratory failure Summary Hospital Course: Patient was made comfort measure and family wanted hospice to see patient on Monday and to stop insulin accuchecks and allow patient to go peacefully . Patient was in a unresponsive state prior to passing away. Additional Data Confirmation of as documented by pronouncing clinician: Palpable Pulses, Heart Tones and Breath Sounds Name of Provider Notified: Cheryl Kent NP Time Provider Notified: 17:36 Was code activated?: No Provider Requests Autopsy: No Family Requests Autopsy: No Safety Council Director Notified: Yes Date [facility] Notified of : 06/11/22 Time [facility] Notified of : 18:12 Advance directives: Yes (patient had a DNR/DNI signed ) Hospice patient?: Yes (hospice consulted did not see patient prior to her passing away)
[2022-07-04 08:24] LABS: Glucose Point of Care > 450 mg/dl (65-105)
[2022-07-04 08:24] LABS: Glucose Point of Care > 450 mg/dl (65-105)
== END 2022-06-11 19:40 | disposition expired ==
LOC: CHSED 21:04 → CHS2ND 21:28
PROVIDERS: Nurse Practitioner Family; Admitting Provider Internal Medicine; Emergency Provider Emergency Medicine; Visit Provider Internal Medicine
DX: E11.11 Type 2 diabetes mellitus with ketoacidosis with coma (principal); E87.5 Hyperkalemia; N17.9 Acute kidney failure, unspecified; E86.0 Dehydration; E11.42 Type 2 diabetes mellitus with diabetic polyneuropathy; I10 Essential (primary) hypertension; E03.9 Hypothyroidism, unspecified; E78.5 Hyperlipidemia, unspecified; M79.7 Fibromyalgia; G25.81 Restless legs syndrome; F32.A Depression, unspecified; Z66 Do not resuscitate; Z86.711 Personal history of pulmonary embolism; Z79.01 Long term (current) use of anticoagulants; Z85.43 Personal history of malignant neoplasm of ovary
CPT/HCPCS: 36415; 36600; 70450; 80048; 80053; 80307; 81003; 82010; 82803; 82805; 82948; 83036; 83605; 83735; 84100; 84484; 85025; 85610; 87040; 93005; 96361; 96374; 96375; 96376; 99285; C1751; G0378; J0171; J0461; J1815; J2060; J2270; J7030; J7120